=== PATIENT | female | born 1945 | race Caucasian/White ===

== ENCOUNTER 2017-05-20 18:17 | Emergency (ER) | payer MEDICARE, SELFPAY ==
[2017-05-20 18:18] VITALS: BP 179/77; PULSE 106; RESP 18; TEMP 37.8; O2SAT 100; BMI 32.3
--- NOTE | 2017-05-20 19:00 | RAD_ITS ---
STUDY: X-RAY CHEST REASON FOR EXAM: Female, 71 years old. Fever and cough. TECHNIQUE: Frontal and lateral views of the chest. COMPARISON: December 16, 2011 FINDINGS: The lungs are hyperexpanded. There is no demonstrated pleural abnormality. There is borderline cardiomegaly. Normal mediastinum and caden. Normal visualized pulmonary arteries. Normal visualized aortic arch and descending thoracic aorta. Normal visualized thoracic spine. Normal visualized ribs, clavicles, and shoulders. There is no demonstrated abnormality of the visualized soft tissue structures of the upper abdomen. RAD/Chest PA and Lateral IMPRESSION: Borderline cardiomegaly with hyperexpansion. No acute pathology. Electronically Signed: Lam Banuelos MD at 19:41 EDT , Service support ,
[2017-05-20 19:27] VITALS: PULSE 105; RESP 15
[2017-05-20] MEDS: Albuterol 2.5 MG/3 ML VIAL.NEB. INHALATION (19:27)
--- NOTE | 2017-05-20 20:16 | ED.DCSUM_ITS ---
- ER Visit Summary Date of Service: 05/20/17 Chief Complaint: Cough History of Present Illness: The patient is a 71 F presenting for evaluation secondary to a cough. Patient states over the course last 6 days she has had a cough that is minimally productive of sputum. Associated with low-grade fever sore throat and rhinorrhea. Patient states she was seen in urgent care on Monday was placed on a cough suppressant. Patient states that she simply is not getting any better. She denies that she is really short of breath. She denies any nausea vomiting or diarrhea. No history of COPD or asthma, she is a non-smoker. Review of systems otherwise negative. Physical Examination: Vital signs notable for heart rate of 105 temperature of 100.1 normal oxygenation. Well-nourished female no acute distress. Moist mucous membranes. Neck supple no JVD. Heart regular rate and rhythm no murmurs. Lungs sounds showed evidence of wheezing and rales wheezing was throughout the lung tamez rales were very minimal in the left base. Abdomen was soft nontender. Extremities nontender nonedematous. Remainder physical otherwise unremarkable. Test Results: PA and lateral chest x-ray by my personal interpretation as well as radiology shows hyperinflation no infiltrate Emergency Department Course and Treatment: Patient presented for evaluation secondary to cough. She did have some abnormal lung sounds on x-ray was obtained and was found to be negative. Patient has had symptoms for 6 days so despite her mildly elevated temperature there is no indication for doing a flu swab as she is outside of the window for treatment. Patient was given a breathing treatment had minimal improvement. At this point I will treat patient for bronchitis. Patient was given a dose of prednisone in the ER should be discharged with a short course of this as well as albuterol. She will follow-up with her primary care physician. Disposition: Discharge Impression: 1. Bronchitis This note was generated with [employer] dictation software. It may contain incorrect words, spelling, and punctuation that were not noted in review of the chart prior to signing ED Disposition - Plan for ED Patient: Disposition: Home or Assisted Living Chief Complaint: Cough Diagnosis: Bronchitis Instructions: ED Bronchitis Asthmatic Prescriptions: Albuterol Inhaler [Ventolin Hfa] 1 - 2 puff INHALATION Q4H PRN PRN #1 inhaler PRN Reason: Wheezing Prednisone 40 mg PO DAILY #6 tab Referrals: Jenaro Conroy MD [Primary Care Provider] - 1 Week if not improving
[2017-05-20] MEDS: predniSONE 20 MG Tablet 60 MG PO (20:22)
[2017-05-20 20:24] VITALS: BP 153/74; PULSE 114; PULSE 115; RESP 20; O2SAT 96
== END 2017-05-20 20:26 | disposition home or self-care (01) ==
PROVIDERS: Emergency Provider Emergency Medicine; Family Provider Family Medicine; PCP Family Medicine
DX: J40 Bronchitis, not specified as acute or chronic (principal); K21.9 Gastro-esophageal reflux disease without esophagitis; I10 Essential (primary) hypertension; Z79.899 Other long term (current) drug therapy
CPT/HCPCS: 71046; 94640; 99283

== ENCOUNTER → 2017-07-04 13:36 | Outpatient (CLI) | payer MEDICARE, SELFPAY ==
[2017-07-04 15:40] LABS: Anion Gap 10 (5-15); BUN 24 mg/dL (7-18); Calcium,Total 10.6 mg/dL (8.5-10.1); Chloride 105 mmol/L (98-107); Cholesterol 266 mg/dL (200); Creatinine, Serum 1.26 mg/dL (0.55-1.02); EST Glomerular Filtration Rate 45 mL/min (>60); Est Glom Filt Rate - Afr Amer 54 mL/min (>60); Glucose 87 mg/dL (74-106); High Density Lipoprotein 61 mg/dL; Potassium 3.9 mmol/L (3.5-5.1); Sodium Level 141 mmol/L (136-145); Triglycerides 227 mg/dL; Very Low Density Lipoprotein 45 mg/dL (5-40)
[2017-07-05 08:41] LABS: Vitamin D,25 Hydroxy 48.1 ng/mL (29.95-100.01)
== END ==
PROVIDERS: Family Provider Family Medicine; PCP Family Medicine; Visit Provider Family Medicine
DX: I10 Essential (primary) hypertension (principal); E78.00 Pure hypercholesterolemia, unspecified; E55.9 Vitamin D deficiency, unspecified
CPT/HCPCS: 36415; 80048; 80061; 82306

== ENCOUNTER → 2017-07-25 12:08 | Outpatient (CLI) | payer MEDICARE, SELFPAY ==
--- NOTE | 2017-07-25 12:09 | BI_ITS ---
MAMMOGRAPHY - BILATERAL SCREENING REASON FOR EXAM: Female, 71 years old. Routine annual screening examination. PERTINENT HISTORY: Grandmother with breast cancer. TECHNIQUE: Digital bilateral breast chrissy (3D mammographic acquisition) in the CC and MLO projections. 2-D mediolateral oblique (MLO) and craniocaudad (CC) views of both breasts were obtained. CAD: Full Field Digital Mammography with Computer Added Detection was performed. COMPARISON: Comparison is made with prior study dated June 28, 2016 and May 14, 2015. FINDINGS: Breast Composition: There are scattered areas of fibroglandular density. There now is evidence of a slightly ill-defined 9.1 mm x 10.5 mm density in the lateral midportion of the right breast. The patient will be recalled for additional views including compression spot views and 90 degree lateral. No other significant abnormalities are identified. BI/SCREENING MAMM (CAD), BILAT IMPRESSION: Ill-defined nodule in the right breast as described. The patient will be recalled for additional views. Recall Side: Right Breast ASSESSMENT CATEGORY: BIRADS Category 0: Incomplete. Need additional imaging evaluation. A letter regarding these results will be sent to the patient by the facility within 30 days. Approximately 10% of breast cancers are not detected by mammography. A normal mammogram should not delay biopsy of a clinically suspicious abnormality. [id number] Electronically Signed: Rodo Siegel MD at 13:57 EDT Tel [phone], Service support ,
== END ==
PROVIDERS: Family Provider Family Medicine; PCP Family Medicine; Visit Provider Family Medicine
DX: Z12.31 Encounter for screening mammogram for malignant neoplasm of breast (principal)
CPT/HCPCS: 77063; 77067

== ENCOUNTER → 2017-07-31 14:00 | Outpatient (CLI) | payer MEDICARE, SELFPAY ==
--- NOTE | 2017-07-31 14:00 | DT_ITS ---
This patient was seen during an EMR downtime July 31, 2017 - August 07, 2017. This patient may have a combination of paper and electronic documentation or all paper documentation. All documentation is viewable within the e-chart portion of [facility] for each patient visit.
--- NOTE | 2017-07-31 14:07 | BI_ITS ---
MAMMOGRAPHY - UNILATERAL DIAGNOSTIC: RIGHT BREAST REASON FOR EXAM: Female, 71 years old. RT BREAST AV'S FROM SCREENING MAMM PERTINENT HISTORY: Grandmother with breast cancer. TECHNIQUE: 2-D mediolateral oblique (MLO) and craniocaudad (CC) views spot compression views of the right breast. COMPARISON: Jul 25 2017 12:27pm FINDINGS: Breast Composition: There are scattered areas of fibroglandular density. There is persistent spiculated nodule in the mid lateral aspect of the right breast containing microcalcifications suspicious for malignancy. Biopsy is recommended that can be performed with stereotactic guidance. No other significant abnormalities are identified. BI/DIAG MAMM W/CAD, UNILAT IMPRESSION: Findings highly suggestive of malignancy, as described above. Biopsy highly recommended. (H) ASSESSMENT CATEGORY: BIRADS Category 4A: Low suspicion for malignancy. A letter regarding these results will be sent to the patient by the facility within 30 days. Approximately 10% of breast cancers are not detected by mammography. A normal mammogram should not delay biopsy of a clinically suspicious abnormality. Electronically Signed: Frank Huitron MD at 10:16 EDT Tel , Service support ,
== END ==
PROVIDERS: Family Provider Family Medicine; PCP Family Medicine; Visit Provider Family Medicine
DX: R92.8 Other abnormal and inconclusive findings on diagnostic imaging of breast (principal)
CPT/HCPCS: 77063; 77065; 77067

== ENCOUNTER → 2017-08-28 10:58 | Outpatient (CLI) | payer MEDICARE, SELFPAY ==
--- NOTE | 2017-08-28 | BRBX_PTH ---
PATIENT: YAJAIRA SOSA LOC: [facility] U#:[id number] AGE/SX: 79/F ROOM: RE08/28/[address]: Dr. Galen Olsen MD : 1945 BED: DIS: SPEC #: [id number] RECD: 08/28/17 14:37 STATUS: GAYLE PRICE #: [id number] TOREY: 08/28/17 00:[address]: Galen Olsen DEPT: SURGICAL PATHOLOGY RECD BY: Sammy Wolf ENTERED: 08/28/17 14:37 SP TYPE: BREAST BX OTHR DR: Dr. 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 Negative for atypia or malignancy. See comment. KRISTY:leighann 08/29/17 COMMENT Immunohistochemistry ([id number]) supports the above diagnosis. Correlation with clinical, radiologic findings and appropriate follow up are necessary. Case has been reviewed in consultation with Dr. Redd who concurs with the above diagnosis. IDC:AM MICROSCOPIC DESCRIPTION Slides are reviewed. GROSS DESCRIPTION Received is one container labeled with the patient's name and not further designated. The specimen consists of multiple elongated fragments of mcgovern yellow fibroadipose tissue that in aggregate measure 5 x 3 x 0.3 cm. The entire specimen is submitted in two cassettes. KRISTY:leighann 08/28/17 TC: 1 CPT: 28053
--- NOTE | 2017-08-28 | IMM_PTH ---
PATIENT: YAJAIRA SOSA LOC: [facility] U#:[id number] AGE/SX: 79/F ROOM: RE08/28/[address]: Dr. Galen Olsen MD : 1945 BED: DIS: SPEC #: [id number] RECD: 08/29/17 10:02 STATUS: GAYLE REYung #: [id number] TOREY: 08/28/17 00:[address]: Galen Olsen DEPT: IMMUNOHISTOCHEMISTRY RECD BY: Za Riojas ENTERED: 08/29/17 10:03 SP TYPE: IMMUNO OTHR DR: Dr. Jenaro Conroy MD Tissues: Right breast, NOS Procedures: Calponin-1(initial) CALPONIN-1 (add) P40 (add) PHYSICIAN & INSTITUTION [place] [id number] SPECIMEN INFORMATION: Tissue Source: Right breast core, biopsy Clinical Info: Spiculated nodule, right breast mid lateral Specimen Number: [id number] 1, 2 CPT code: 01461, [id number] METHODOLOGY: Deparaffinized sections of prefer/formalin-fixed tissue or PAP/DQ stained slides are incubated with monoclonal/polyclonal antibodies/oligonucleotide probes. Localization is made via biotin free immunoperoxidase method. Appropriate controls are performed and reacted as expected. Results on target cell population are indicated in the following table: RESULTS: ANTIBODY / CLONE RESULT Block 1 P40 (BC28) positive Calponin-1 (PW324H) positive Block 2 P40 (BC28) positive Calponin-1 (OH999G) positive These tests were developed and their performance characteristics determined by [facility]. They may not have been cleared or approved by the U.S. Food and Drug Administration. The FDA has determined that such clearance or approval is not necessary. INTERPRETATION: Right breast, stereotactic core biopsy: Intraductal papilloma with adenosis. Negative for malignancy SJ:audra 08/29/17
--- NOTE | 2017-08-28 11:40 | PCM.OPRPT ---
Problem List (1) Abnormal mammogram of right breast Status: Acute Report of Operation Date of Procedure: 08/28/17 Pre-Operative Diagnosis: Abnormal mammogram with spiculated density and calcifications mid lateral right breast Post-Operative Diagnosis: Same Surgery/Procedure Performed:: Stereotactic needle core biopsy mid lateral right breast Description of Surgical Findings:: Timeout and informed consent was obtained. 71-year-old female was taken to the mammography suite. She was placed prone on the table. The right breast was placed in a lateral medial view. The density in question was rapidly identified. Stereotactic images were obtained. Digital information was obtained on the single target site. The breast was prepped with Betadine. 1% lidocaine was used as a local anesthetic. A total of 8 cc was used. A small stab incision was created. An 8-gauge resolve needle was advanced to prefire depth. Prefire films were obtained demonstrating adequate localization. The device was fired. 6 cores were obtained. The cores were selected and one in particular had the vast majority the microcalcifications. A dumbbell marking clip was left at 12 o'clock position. She was released from the device and pressure was held for hemostasis. Steri-Strips Telfa OpSite dressing applied. The specimens were immediately transferred to formalin. Final pathology is pending. No apparent complications. Blood loss minimal. Galen Olsen M.D., F.A.C.S.
== END ==
PROVIDERS: Family Provider Family Medicine; PCP Family Medicine; Visit Provider Surgery
DX: D24.1 Benign neoplasm of right breast (principal); N60.21 Fibroadenosis of right breast; M19.90 Unspecified osteoarthritis, unspecified site; R01.1 Cardiac murmur, unspecified; I10 Essential (primary) hypertension; K21.9 Gastro-esophageal reflux disease without esophagitis; Z79.82 Long term (current) use of aspirin; Z79.899 Other long term (current) drug therapy; Z87.891 Personal history of nicotine dependence
CPT/HCPCS: 19081; 88305; 88341; 88342; J7050

== ENCOUNTER → 2018-06-29 | Outpatient (CLI) | payer MEDICARE, SELFPAY ==
[2018-06-29 10:47] LABS: Cholesterol 273 mg/dL (200); High Density Lipoprotein 59 mg/dL; Triglycerides 226 mg/dL; Very Low Density Lipoprotein 45 mg/dL (5-40)
== END | disposition home or self-care (01) ==
PROVIDERS: Family Provider Family Medicine; PCP Family Medicine; Referring Provider Family Medicine; Visit Provider Family Medicine
DX: E78.00 Pure hypercholesterolemia, unspecified (principal); E55.9 Vitamin D deficiency, unspecified; I10 Essential (primary) hypertension
CPT/HCPCS: 36415; 80061

== ENCOUNTER → 2018-08-16 | Outpatient (CLI) | payer MEDICARE, SELFPAY ==
--- NOTE | 2018-08-16 10:43 | BI_ITS ---
MAMMOGRAPHY - BILATERAL SCREENING REASON FOR EXAM: Female, 72 years old. Routine annual screening examination. PERTINENT HISTORY: Grandmother with breast cancer. Right stereotactic breast biopsy. TECHNIQUE: Digital bilateral breast omega (3D mammographic acquisition) in the CC and MLO projections. 2-D mediolateral oblique (MLO) and craniocaudad (CC) views of both breasts were obtained. CAD: Full Field Digital Mammography with Computer Added Detection was performed. COMPARISON: Comparison is made with prior study dated July 31, 2017 and July 25, 2017. FINDINGS: Breast Composition: There are scattered areas of fibroglandular density. There are no dominant masses or suspicious calcifications. No other significant abnormalities are identified. There has been no significant change since the prior study. BI/SCREEN MAMM (CAD) W/OMEGA BILAT IMPRESSION: Stable bilateral screening mammogram. Yearly follow-up mammogram recommended. (A) ASSESSMENT CATEGORY: BIRADS Category 1: Negative. A letter regarding these results will be sent to the patient by the facility within 30 days. Approximately 10% of breast cancers are not detected by mammography. A normal mammogram should not delay biopsy of a clinically suspicious abnormality. [id number] Electronically Signed: Rodo Siegel, at 12:26 EDT , Service support ,
== END | disposition home or self-care (01) ==
LOC: OPBI 10:31
PROVIDERS: Family Provider Family Medicine; PCP Family Medicine; Referring Provider Family Medicine; Visit Provider Family Medicine
DX: Z12.31 Encounter for screening mammogram for malignant neoplasm of breast (principal)
CPT/HCPCS: 77063; 77067

== ENCOUNTER → 2018-08-31 | Outpatient (CLI) | payer MEDICARE, SELFPAY ==
[2017-08-17 15:53] VITALS: BMI 33.2
[2018-08-31 09:33] LABS: Absolute Lymphocyte Count 1.78 X10^3/ul (0.83-4.51); Absolute Neutrophil Count 3.3 X10^3/uL (2.0-7.7); Basophil# 0.04 X10^3/uL; Basophil% 0.6 % (0-1); Eosinophil# 0.19 X10^3/uL; Eosinophils% 3.1 % (0-5); Hematocrit 33.6 % (37-47); Hemoglobin 11.4 g/dl (12.0-15.0); Lymphocyte # 1.78 X10^3/ul (4.0); Lymphocyte % 28.8 % (19-41); Mean Corp Hgb Conc 33.9 g/gl (32-36); Mean Corpuscular Hgb 31.1 pg (27.0-32.0); Mean Corpuscular Volume 91.8 fL (81-99); Mean Platelet Vol. 10.5 fl (6.2-12.0); Monocyte# 0.82 X10^3/uL; Monocyte% 13.3 % (0-10); Neutrophil # 3.34 X10^3/uL (2.7-7.7); Platelet Count 307 K/mm3 (150-450); RBC Distribution Width CV 11.9 % (11.6-14.6); RBC Distribution Width SD 38.8 fl (35.1-43.9); Red Blood Count 3.66 M/mm3 (4.2-5.4); White Blood Count 6.2 K/mm3 (4.4-11.0)
[2018-08-31 09:37] LABS: POSITIVE COUNT NO; POSITIVE DIFFERENTIAL NO; POSITIVE MORPHOLOGY NO
[2018-08-31 09:50] LABS: Anion Gap 7 (5-15); BUN 28 mg/dL (7-18); BUN/Creat Ratio 22.8 RATIO (10-20); Calcium,Total 10.4 mg/dL (8.5-10.1); Chloride 106 mmol/L (98-107); Cholesterol 167 mg/dL (200); Creatinine, Serum 1.23 mg/dL (0.55-1.02); EST Glomerular Filtration Rate 46 mL/min (>60); Est Glom Filt Rate - Afr Amer 55 mL/min (>60); Glucose 99 mg/dL (74-106); High Density Lipoprotein 59 mg/dL; Potassium 4.2 mmol/L (3.5-5.1); Sodium Level 140 mmol/L (136-145); Triglycerides 98 mg/dL; Very Low Density Lipoprotein 20 mg/dL (5-40)
[2018-08-31 10:18] LABS: Vitamin D,25 Hydroxy 54.6 ng/mL (29.95-100.01)
== END | disposition home or self-care (01) ==
LOC: LAB 08:20
PROVIDERS: Family Provider Family Medicine; PCP Family Medicine; Referring Provider Family Medicine; Visit Provider Family Medicine
DX: I10 Essential (primary) hypertension (principal); M17.11 Unilateral primary osteoarthritis, right knee; E78.00 Pure hypercholesterolemia, unspecified; E55.9 Vitamin D deficiency, unspecified
CPT/HCPCS: 36415; 80048; 80061; 82306; 85025

== ENCOUNTER → 2019-04-19 07:41 | Outpatient (CLI) | payer MEDICARE, SELFPAY ==
[2017-08-17 15:53] VITALS: BMI 33.2
[2019-04-19 10:49] LABS: AST(SGOT) 19 U/L (15-37); Alanine Aminotransfer ALT/SGPT 24 U/L (13-56); Albumin, Serum 3.6 g/dL (3.2-5.0); Alkaline Phosphatase 70 U/L (45-117); Anion Gap 5 (5-15); BUN 20 mg/dL (7-18); BUN/Creat Ratio 20.3 RATIO (10-20); Chloride 107 mmol/L (98-107); Cholesterol 208 mg/dL (200); Creatinine, Serum 0.98 mg/dL (0.55-1.02); EST Glomerular Filtration Rate 59 mL/min (>60); Est Glom Filt Rate - Afr Amer 72 mL/min (>60); Globulin 3.7 g/dL (2.2-4.2); Glucose 91 mg/dL (74-106); High Density Lipoprotein 72 mg/dL; Potassium 4.1 mmol/L (3.5-5.1); Protein, Total 7.3 g/dL (6.4-8.2); Sodium Level 140 mmol/L (136-145); Triglycerides 135 mg/dL; Very Low Density Lipoprotein 27 mg/dL (5-40)
== END ==
PROVIDERS: PCP Family Medicine; Referring Provider Family Medicine; Visit Provider Family Medicine
DX: I10 Essential (primary) hypertension (principal); M85.80 Other specified disorders of bone density and structure, unspecified site
CPT/HCPCS: 36415; 80053; 80061; 82306

== ENCOUNTER → 2019-08-13 11:19 | Outpatient (CLI) | payer MEDICARE, SELFPAY ==
[2017-08-17 15:53] VITALS: BMI 33.2
[2019-08-13 12:41] LABS: Calcium,Total 11.3 mg/dL (8.5-10.1)
== END ==
PROVIDERS: PCP Family Medicine; Referring Provider Family Medicine; Visit Provider Family Medicine
DX: E83.52 Hypercalcemia (principal)
CPT/HCPCS: 36415; 82310

== ENCOUNTER → 2019-08-16 14:04 | Outpatient (CLI) | payer MEDICARE, SELFPAY ==
[2017-08-17 15:53] VITALS: BMI 33.2
--- NOTE | 2019-08-16 14:13 | RAD_ITS ---
STUDY: X-RAY CHEST REASON FOR EXAM: Female, 73 years old. Hypercalcemia TECHNIQUE: PA and lateral views of the chest. COMPARISON: May 20, 2017 FINDINGS: There is no new focal consolidation. Normal size heart. Normal mediastinum and caden. Normal visualized pulmonary arteries. Normal visualized aortic arch and descending thoracic aorta. Normal visualized thoracic spine. Normal visualized ribs, clavicles, and shoulders. There is no demonstrated abnormality of the visualized soft tissue structures of the upper abdomen. RAD/Chest PA and Lateral IMPRESSION: No acute cardiopulmonary process. Electronically Signed: Carmen Mcmillan MD at 16:55 EDT Tel , Service support ,
[2019-08-16 17:52] LABS: Phosphorus 2.1 mg/dL (2.5-4.9)
[2019-08-16 19:11] LABS: Vitamin D,25 Hydroxy 45.9 ng/mL
[2019-08-19 08:36] LABS: PTHIN 137.7 pg/mL (18.4-80.1)
== END ==
PROVIDERS: PCP Family Medicine; Referring Provider Family Medicine; Visit Provider Family Medicine
DX: E83.52 Hypercalcemia (principal)
CPT/HCPCS: 36415; 71046; 82306; 83970; 84100

== ENCOUNTER → 2019-09-05 13:04 | Outpatient (CLI) | payer MEDICARE, SELFPAY ==
[2017-08-17 15:53] VITALS: BMI 33.2
--- NOTE | 2019-09-05 13:07 | BI_ITS ---
MAMMOGRAPHY - BILATERAL SCREENING REASON FOR EXAM: Female, 73 years old. Routine annual screening examination. PERTINENT HISTORY: Grandmother with breast cancer. TECHNIQUE: Digital bilateral breast omega (3D mammographic acquisition) in the CC and MLO projections. 2-D mediolateral oblique (MLO) and craniocaudad (CC) views of both breasts were obtained. CAD: Full Field Digital Mammography with Computer Added Detection was performed. COMPARISON: Comparison is made with prior study dated August 16, 2018 and July 31, 2017. FINDINGS: Breast Composition: There are scattered areas of fibroglandular density. There are no dominant masses or suspicious calcifications. Stable benign-appearing bilateral axillary lymph nodes. No other significant abnormalities are identified. There has been no significant change since the prior study. BI/SCREEN MAMM (CAD) W/OMEGA BILAT IMPRESSION: Stable bilateral screening mammogram. Yearly follow-up mammogram recommended. (A) ASSESSMENT CATEGORY: BIRADS Category 2: Benign. A letter regarding these results will be sent to the patient by the facility within 30 days. Approximately 10% of breast cancers are not detected by mammography. A normal mammogram should not delay biopsy of a clinically suspicious abnormality. [id number] Electronically Signed: Rodo Siegel, at 14:37 EDT , Service support ,
--- NOTE | 2019-09-05 13:12 | BD_ITS ---
STUDY: DUAL ENERGY X-RAY ABSORPTIOMETRY / DXA REASON FOR EXAM: Female, 73 years old. Age of rishi 52. Pat is 165.5# and 5'' a loss of 1.5 and quot; loss per pat. Past hx of using a thyroid med. Hx of using both Fosamax and Actonel of about 7-8 yrs. in total. Her BPM has a diuretic in it. Takes 1500mg of calcium and a multi-vit. She exercises moderately. Has a hx of a left femur fx with replacement. TECHNIQUE: Bone Mineral Density (BMD) measurements of lumbar spine and right hip were obtained. COMPARISON: Comparison is made with prior examination of May 14, 2015. FINDINGS: Lumbar Spine (L1-L4): g/cm2 (1.095) / T-score (-0.6) / Z-score (1.1) Findings are suggestive of normal bone density with a low fracture risk. Right Femur Total: g/cm2 (0.842) / T-score (-1.3) / Z-score (0.2) Right Femoral Neck: g/cm2 (0.789) / T-score (-1.8) / Z-score (0.0) The T-Scores on the most recent prior examination were: Lumbar Spine (L1-L4): There has been worsening of bone density since the previous examination. Right Femur Total: which represents a worsening of 3.9%. BD/Dexa Bone Density Study IMPRESSION: The patient is considered osteopenic as outlined below according to World Oliver Organization (WHO) criteria with a moderate fracture risk. There has been worsening of bone density since the previous examination. Reference Information: The T-score is the number of standard deviations above or below the standard which is normal for young adults at their peak bone mineral density. The World Health Organization (WHO) interprets the T-scores as follows: Above -1 Normal bone density Between -1 and -2.5 Osteopenia Equal to / or below -2.5 Osteoporosis As a practical clinical guideline, osteopenia may be graded as follows: Mild -1 through -1.5 Moderate -1.6 through -2.0 Severe -2.1 through -2.4 The Z-score is the number of standard deviations above or below age-matched controls. A Z-score of less than -1.5 would be considered abnormal. References: 1. NIH Osteoporosis and Related Bone Diseases http://www.osteo.org 2. International Society for Clinical Densitometry http://www.iscd.org 3. National Osteoporosis Foundation http://www.nof.org Electronically Signed: Rodo Siegel, at 15:36 EDT , Service support ,
== END ==
PROVIDERS: PCP Family Medicine; Referring Provider Family Medicine; Visit Provider Family Medicine
DX: Z12.31 Encounter for screening mammogram for malignant neoplasm of breast (principal); Z78.0 Asymptomatic menopausal state
CPT/HCPCS: 77063; 77067; 77080

== ENCOUNTER → 2020-02-05 10:55 | Outpatient (CLI) | payer MEDICARE, SELFPAY ==
[2019-10-31 16:34] VITALS: BMI 33.2
[2020-02-05 12:17] LABS: Absolute Lymphocyte Count 1.81 X10^3/uL (0.83-4.51); Absolute Neutrophil Count 4.4 X10^3/uL (2.0-7.7); Basophil# 0.05 X10^3/uL; Basophil% 0.7 % (0-1); Eosinophil# 0.13 X10^3/uL; Eosinophils% 1.8 % (0-5); Hematocrit 35.3 % (37-47); Hemoglobin 11.6 g/dL (12.0-15.0); Lymphocyte # 1.81 X10^3/ul (4.0); Lymphocyte % 25.7 % (19-41); Mean Corp Hgb Conc 32.9 g/dL (32-36); Mean Corpuscular Hgb 30.6 pg (27.0-32.0); Mean Corpuscular Volume 93.1 fL (81-99); Mean Platelet Vol. 9.8 fl (6.2-12.0); Monocyte# 0.63 X10^3/uL; NRBC Flagged by Analyzer 0 % (0-5); Neutrophil # 4.38 X10^3/uL (2.7-7.7); Neutrophil % 62.4 % (47-70); Platelet Count 315 K/mm3 (150-450); RBC Distribution Width CV 12.1 % (11.6-14.6); RBC Distribution Width SD 41.5 fl (35.1-43.9); Red Blood Count 3.79 M/mm3 (4.2-5.4)
[2020-02-05 12:54] LABS: ALB/GLOB Ratio 1.1 RATIO (0.9-2.4); AST(SGOT) 18 U/L (15-37); Alanine Aminotransfer ALT/SGPT 23 U/L (13-56); Albumin, Serum 3.8 g/dL (3.2-5.0); Alkaline Phosphatase 83 U/L (45-117); Anion Gap 5 (5-15); BUN 14 mg/dL (7-18); BUN/Creat Ratio 13.7 RATIO (10-20); Calcium,Total 10.5 mg/dL (8.5-10.1); Chloride 106 mmol/L (98-107); Cholesterol 194 mg/dL (200); Creatinine, Serum 1.02 mg/dL (0.55-1.02); EST Glomerular Filtration Rate 57 mL/min (>60); Est Glom Filt Rate - Afr Amer 68 mL/min (>60); Globulin 3.6 g/dL (2.2-4.2); Glucose 102 mg/dL (74-106); High Density Lipoprotein 73 mg/dL; Potassium 4.3 mmol/L (3.5-5.1); Protein, Total 7.4 g/dL (6.4-8.2); Sodium Level 137 mmol/L (136-145); Triglycerides 107 mg/dL; Very Low Density Lipoprotein 21 mg/dL (5-40)
== END ==
PROVIDERS: PCP Family Medicine; Referring Provider Family Medicine; Visit Provider Family Medicine
DX: E78.00 Pure hypercholesterolemia, unspecified (principal); I10 Essential (primary) hypertension
CPT/HCPCS: 36415; 80053; 80061; 85025

== ENCOUNTER → 2020-02-26 12:39 | Outpatient (CLI) | payer MEDICARE, SELFPAY ==
[2019-10-31 16:34] VITALS: BMI 33.2
[2020-02-26 12:47] VITALS: BP 146/66; PULSE 92; RESP 18; TEMP 35.8; O2SAT 98; BMI 33.0
[2020-02-26] MEDS: DENOSUMAB 60 MG/ML SQ (13:11)
== END ==
PROVIDERS: PCP Family Medicine; Referring Provider Internal Medicine Endocrinology, Diabetes & Metabolism; Visit Provider Internal Medicine Endocrinology, Diabetes & Metabolism
DX: M81.0 Age-related osteoporosis without current pathological fracture (principal)
CPT/HCPCS: 96372; J0897

== ENCOUNTER 2020-04-27 12:10 | Outpatient (RCR) | payer MEDICARE, SELFPAY ==
[2020-02-26 12:47] VITALS: BMI 33.0
== END 2020-04-27 23:59 ==
LOC: IMMUN 12:10
PROVIDERS: PCP Family Medicine; Visit Provider Family Medicine
DX: Z23 Encounter for immunization (principal)
CPT/HCPCS: 0011A; 0012A

== ENCOUNTER → 2020-08-18 07:26 | Outpatient (CLI) | payer MEDICARE, SELFPAY ==
[2020-02-26 12:47] VITALS: BMI 33.0
[2020-08-18 10:15] LABS: Absolute Lymphocyte Count 1.33 X10^3/uL (0.83-4.51); Absolute Neutrophil Count 3.9 X10^3/uL (2.0-7.7); Basophil# 0.04 X10^3/uL; Basophil% 0.6 % (0-1); Eosinophils% 3.1 % (0-5); Hematocrit 35.4 % (37-47); Hemoglobin 11.5 g/dL (12.0-15.0); Lymphocyte # 1.33 X10^3/ul (0.83-4.51); Lymphocyte % 20.8 % (19-41); Mean Corp Hgb Conc 32.5 g/dL (32-36); Mean Corpuscular Hgb 30.7 pg (27.0-32.0); Mean Corpuscular Volume 94.4 fL (81-99); Mean Platelet Vol. 10.3 fl (6.2-12.0); Monocyte# 0.89 X10^3/uL; Monocyte% 13.9 % (0-10); NRBC Flagged by Analyzer 0 % (0-5); Neutrophil # 3.92 X10^3/uL (2.7-7.7); Neutrophil % 61.3 % (47-70); Platelet Count 310 K/mm3 (150-450); RBC Distribution Width CV 12.3 % (11.6-14.6); RBC Distribution Width SD 42.4 fl (35.1-43.9); Red Blood Count 3.75 M/mm3 (4.2-5.4); White Blood Count 6.4 K/mm3 (4.4-11.0)
[2020-08-18 10:57] LABS: ALB/GLOB Ratio 0.9 RATIO (0.9-2.4); AST(SGOT) 17 U/L (15-37); Alanine Aminotransfer ALT/SGPT 20 U/L (13-56); Albumin, Serum 3.6 g/dL (3.2-5.0); Alkaline Phosphatase 68 U/L (45-117); Anion Gap 6 (5-15); BUN 20 mg/dL (7-18); BUN/Creat Ratio 18.2 RATIO (10-20); Calcium,Total 11.1 mg/dL (8.5-10.1); Chloride 107 mmol/L (98-107); EST Glomerular Filtration Rate 52 mL/min (>60); Est Glom Filt Rate - Afr Amer 63 mL/min (>60); Globulin 3.8 g/dL (2.2-4.2); Glucose 97 mg/dL (74-106); Potassium 4.3 mmol/L (3.5-5.1); Protein, Total 7.4 g/dL (6.4-8.2); Sodium Level 139 mmol/L (136-145)
== END ==
PROVIDERS: PCP Family Medicine; Referring Provider Family Medicine; Visit Provider Family Medicine
DX: I10 Essential (primary) hypertension (principal)
CPT/HCPCS: 36415; 80053; 85025

== ENCOUNTER → 2020-08-19 12:51 | Outpatient (CLI) | payer MEDICARE, SELFPAY ==
[2019-10-31 16:34] VITALS: BMI 33.2
[2020-02-26 12:47] VITALS: BMI 33.0
[2020-08-19 12:45] VITALS: BP 130/54; PULSE 80; RESP 16; TEMP 36.5; O2SAT 98; BMI 33.0
[2020-08-19] MEDS: DENOSUMAB 60 MG/ML SC (12:59)
== END ==
PROVIDERS: PCP Family Medicine; Referring Provider Internal Medicine Endocrinology, Diabetes & Metabolism; Visit Provider Internal Medicine Endocrinology, Diabetes & Metabolism
DX: M81.0 Age-related osteoporosis without current pathological fracture (principal)
CPT/HCPCS: 96372; J0897

== ENCOUNTER → 2020-09-23 13:26 | Outpatient (CLI) | payer MEDICARE, SELFPAY ==
[2020-08-19 12:45] VITALS: BMI 33.0
[2020-09-23 15:20] LABS: Platelet Count 318 K/mm3 (150-450); RET-HE 37.2 pg (30-35); Reticulocyte Count 1.32 % (0.5-1.5)
[2020-09-23 15:51] LABS: Vitamin B12 626 pg/mL (211-911)
[2020-09-23 15:52] LABS: Cholesterol 187 mg/dL (200); Ferritin 51 ng/mL (8-252); High Density Lipoprotein 74 mg/dL; Iron 75 ug/dL (50-170); Iron Binding Capacity,Total 320 ug/dL (250-450); Triglycerides 99 mg/dL; Very Low Density Lipoprotein 20 mg/dL (5-40)
== END ==
PROVIDERS: PCP Family Medicine; Referring Provider Family Medicine; Visit Provider Family Medicine
DX: E78.00 Pure hypercholesterolemia, unspecified (principal); D64.9 Anemia, unspecified
CPT/HCPCS: 36415; 80061; 82607; 82728; 83540; 83550; 85045

== ENCOUNTER → 2020-10-22 12:21 | Outpatient (CLI) | payer MEDICARE, SELFPAY ==
[2020-08-19 12:45] VITALS: BMI 33.0
--- NOTE | 2020-10-22 12:23 | BI_ITS ---
MAMMOGRAPHY - BILATERAL SCREENING REASON FOR EXAM: Female, 75 years old. Routine annual screening examination. PERTINENT HISTORY: Grandmother with breast cancer. Prior right stereotactic breast biopsy. TECHNIQUE: Digital bilateral breast omega (3D mammographic acquisition) in the CC and MLO projections. 2-D mediolateral oblique (MLO) and craniocaudad (CC) views of both breasts were obtained. CAD: Full Field Digital Mammography with Computer Added Detection was performed. COMPARISON: Comparison is made with prior examination of 09/05/2019 and 08/16/2018. FINDINGS: Breast Composition: There are scattered areas of fibroglandular density. There are no dominant masses or suspicious calcifications. A tissue clip marker is seen in the anterior mid lateral aspect of the right breast. This is unchanged. Stable small benign-appearing left axillary lymph nodes. No other significant abnormalities are identified. There has been no significant change since the prior study. BI/SCRN MAMM (CAD)W/OMEGA BILAT IMPRESSION: Stable bilateral screening mammogram. Yearly follow-up mammogram recommended. (A) ASSESSMENT CATEGORY: BIRADS Category 2: Benign. A letter regarding these results will be sent to the patient by the facility within 30 days. Approximately 10% of breast cancers are not detected by mammography. A normal mammogram should not delay biopsy of a clinically suspicious abnormality. [id number] Electronically Signed: Rodo Siegel MD at 14:22 EDT , Service support ,
== END ==
PROVIDERS: PCP Family Medicine; Referring Provider Family Medicine; Visit Provider Family Medicine
DX: Z12.31 Encounter for screening mammogram for malignant neoplasm of breast (principal)
CPT/HCPCS: 77063; 77067

== ENCOUNTER → 2021-02-17 12:23 | Outpatient (CLI) | payer MEDICARE, SELFPAY ==
[2020-02-26 12:47] VITALS: BMI 33.0
[2021-02-17 12:29] VITALS: BP 151/70; PULSE 82; RESP 16; TEMP 36.7; O2SAT 97; BMI 31.2
[2021-02-17] MEDS: DENOSUMAB 60 MG/ML SC (13:06)
== END ==
PROVIDERS: PCP Family Medicine; Referring Provider Internal Medicine Endocrinology, Diabetes & Metabolism; Visit Provider Internal Medicine Endocrinology, Diabetes & Metabolism
DX: M81.0 Age-related osteoporosis without current pathological fracture (principal)
CPT/HCPCS: 96372; J0897

== ENCOUNTER → 2021-08-18 | Outpatient (CLI) | payer MEDICARE, SELFPAY ==
[2021-08-18 12:48] VITALS: BP 132/54; PULSE 79; RESP 14; TEMP 36.6; O2SAT 98; BMI 31.2
[2021-08-18] MEDS: DENOSUMAB 60 MG/ML SC (12:50)
== END | disposition home or self-care (01) ==
LOC: MEDOUTP 12:41
PROVIDERS: PCP Family Medicine; Referring Provider Internal Medicine Endocrinology, Diabetes & Metabolism; Visit Provider Internal Medicine Endocrinology, Diabetes & Metabolism
DX: M81.0 Age-related osteoporosis without current pathological fracture (principal)
CPT/HCPCS: 96372; J0897

== ENCOUNTER 2021-09-24 10:22 | Outpatient (CLI) | payer MEDICARE, SELFPAY ==
[2021-09-24 12:02] LABS: Absolute Lymphocyte Count 1.08 X10^3/uL (0.83-4.51); Absolute Neutrophil Count 4.4 X10^3/uL (2.0-7.7); Basophil# 0.06 X10^3/uL; Basophil% 0.9 % (0-1); Eosinophil# 0.19 X10^3/uL; Eosinophils% 2.9 % (0-5); Hematocrit 34.3 % (37-47); Hemoglobin 11.3 g/dL (12.0-15.0); Lymphocyte # 1.08 X10^3/ul (0.83-4.51); Lymphocyte % 16.7 % (19-41); Mean Corp Hgb Conc 32.9 g/dL (32-36); Mean Corpuscular Volume 94.2 fL (81-99); Mean Platelet Vol. 9.9 fl (6.2-12.0); Monocyte# 0.75 X10^3/uL; Monocyte% 11.6 % (0-10); NRBC Flagged by Analyzer 0 % (0-5); Neutrophil # 4.39 X10^3/uL (2.7-7.7); Neutrophil % 67.7 % (47-70); Platelet Count 287 K/mm3 (150-450); RBC Distribution Width CV 12.3 % (11.6-14.6); RBC Distribution Width SD 42.4 fl (35.1-43.9); Red Blood Count 3.64 M/mm3 (4.2-5.4); White Blood Count 6.5 K/mm3 (4.4-11.0)
[2021-09-24 12:23] LABS: AST(SGOT) 19 U/L (15-37); Alanine Aminotransfer ALT/SGPT 26 U/L (13-56); Albumin, Serum 3.5 g/dL (3.2-5.0); Alkaline Phosphatase 72 U/L (45-117); Anion Gap 5 (5-15); BUN 20 mg/dL (7-18); BUN/Creat Ratio 17.1 RATIO (10-20); Calcium,Total 10.9 mg/dL (8.5-10.1); Chloride 108 mmol/L (98-107); Cholesterol 175 mg/dL (200); Creatinine, Serum 1.17 mg/dL (0.55-1.02); EST Glomerular Filtration Rate 48 mL/min (>60); Est Glom Filt Rate - Afr Amer 58 mL/min (>60); Globulin 3.6 g/dL (2.2-4.2); Glucose 99 mg/dL (74-106); High Density Lipoprotein 57 mg/dL; Potassium 4.5 mmol/L (3.5-5.1); Protein, Total 7.1 g/dL (6.4-8.2); Sodium Level 138 mmol/L (136-145); Triglycerides 145 mg/dL; Very Low Density Lipoprotein 29 mg/dL (5-40)
== END 2021-09-24 23:59 | disposition home or self-care (01) ==
LOC: MTLAB 10:23
PROVIDERS: PCP Family Medicine; Referring Provider Family Medicine; Visit Provider Family Medicine
DX: I12.9 Hypertensive chronic kidney disease with stage 1 through stage 4 chronic kidney disease, or unspecified chronic kidney disease (principal); N18.30 Chronic kidney disease, stage 3 unspecified; D64.9 Anemia, unspecified; E78.00 Pure hypercholesterolemia, unspecified
CPT/HCPCS: 36415; 80053; 80061; 85025

== ENCOUNTER → 2021-10-26 | Outpatient (CLI) | payer MEDICARE, SELFPAY ==
--- NOTE | 2021-10-26 13:25 | BI_ITS ---
MAMMOGRAPHY - BILATERAL SCREENING REASON FOR EXAM: Female, 76 years old. Routine annual screening examination. PERTINENT HISTORY: Grandmother with breast cancer. Prior right stereotactic breast biopsy. TECHNIQUE: Digital bilateral breast omega (3D mammographic acquisition) in the CC and MLO projections. 2-D mediolateral oblique (MLO) and craniocaudad (CC) views of both breasts were obtained. CAD: Full Field Digital Mammography with Computer Added Detection was performed. COMPARISON: Comparison is made with prior study dated 10/22/2020 and 09/05/2019. FINDINGS: Breast Composition: There are scattered areas of fibroglandular density. There are no dominant masses or suspicious calcifications. A tissue clip marker is seen in the medial retroareolar region of the right breast. Stable benign appearing bilateral axillary lymph nodes. No other significant abnormalities are identified. There has been no significant change since the prior study. BI/SCRN MAMM (CAD)W/OMEGA BILAT IMPRESSION: Stable bilateral screening mammogram. Yearly follow-up mammogram recommended. (A) ASSESSMENT CATEGORY: BIRADS Category 2: Benign. A letter regarding these results will be sent to the patient by the facility within 30 days. Approximately 10% of breast cancers are not detected by mammography. A normal mammogram should not delay biopsy of a clinically suspicious abnormality. [id number] Electronically Signed: Rodo Siegel MD at 14:50 EDT ,
--- NOTE | 2021-10-26 13:31 | BD_ITS ---
STUDY: DUAL ENERGY X-RAY ABSORPTIOMETRY / DXA REASON FOR EXAM: Female, 76 years old. [id number] TECHNIQUE: Bone Mineral Density (BMD) measurements of lumbar spine and right hip were obtained. COMPARISON: Comparison is made with prior study 09/05/2019. FINDINGS: Lumbar Spine (L1-L4): g/cm2 (1.046) / T-score (-0.1) / Z-score (2.) Findings are suggestive of normal bone density with a low fracture risk. Right Femur Total: g/cm2 (0.811) / T-score (-1.1) / Z-score (0.7) Right Femoral Neck: g/cm2 (0.612) / T-score (-2.1) / Z-score (-0.1) The T-Scores on the most recent prior examination were: Lumbar Spine (L1-L4): There has been improvement of bone density since the previous examination. Right Femur Total: which represents an improvement of 3.8%. BD/Dexa Bone Density Study IMPRESSION: The patient is considered osteopenic as outlined below according to World Oliver Organization (WHO) criteria with a moderate fracture risk. There has been improvement of bone density since the previous examination. Reference Information: The T-score is the number of standard deviations above or below the standard which is normal for young adults at their peak bone mineral density. The World Health Organization (WHO) interprets the T-scores as follows: Above -1 Normal bone density Between -1 and -2.5 Osteopenia Equal to / or below -2.5 Osteoporosis As a practical clinical guideline, osteopenia may be graded as follows: Mild -1 through -1.5 Moderate -1.6 through -2.0 Severe -2.1 through -2.4 The Z-score is the number of standard deviations above or below age-matched controls. A Z-score of less than -1.5 would be considered abnormal. References: 1. NIH Osteoporosis and Related Bone Diseases www osteo.org 2. International Society for Clinical Densitometry www iscd.org 3. National Osteoporosis Foundation www nof.org Electronically Signed: Rodo Siegel MD at 13:52 EDT ,
== END | disposition home or self-care (01) ==
PROVIDERS: PCP Family Medicine; Visit Provider Family Medicine
DX: Z12.31 Encounter for screening mammogram for malignant neoplasm of breast (principal); N95.9 Unspecified menopausal and perimenopausal disorder
CPT/HCPCS: 77063; 77067; 77080

== ENCOUNTER → 2022-02-23 | Outpatient (CLI) | payer MEDICARE, SELFPAY ==
[2022-02-23 12:56] VITALS: BP 144/54; PULSE 84; RESP 16; TEMP 36.1; O2SAT 96; BMI 32.2
[2022-02-23] MEDS: DENOSUMAB 60 MG/ML SC (12:58)
== END | disposition home or self-care (01) ==
LOC: MEDOUTP 12:42
PROVIDERS: PCP Family Medicine; Referring Provider Internal Medicine Endocrinology, Diabetes & Metabolism; Visit Provider Internal Medicine Endocrinology, Diabetes & Metabolism
DX: M81.0 Age-related osteoporosis without current pathological fracture (principal)
CPT/HCPCS: 96372; J0897

== ENCOUNTER → 2022-03-31 | Outpatient (CLI) | payer MEDICARE, SELFPAY ==
[2022-03-31 15:08] LABS: Absolute Neutrophil Count 3.5 X10^3/uL (2.0-7.7); Basophil# 0.06 X10^3/uL; Basophil% 1.1 % (0-1); Eosinophil# 0.11 X10^3/uL; Eosinophils% 2.1 % (0-5); Hematocrit 36.1 % (37-47); Hemoglobin 11.9 g/dL (12.0-15.0); Lymphocyte % 20.7 % (19-41); Mean Corpuscular Hgb 31.4 pg (27.0-32.0); Mean Corpuscular Volume 95.3 fL (81-99); Mean Platelet Vol. 9.6 fl (6.2-12.0); Monocyte% 9.4 % (0-10); NRBC Flagged by Analyzer 0 % (0-5); Neutrophil # 3.53 X10^3/uL (2.7-7.7); Neutrophil % 66.5 % (47-70); Platelet Count 259 K/mm3 (150-450); RBC Distribution Width CV 12.3 % (11.6-14.6); RBC Distribution Width SD 42.4 fl (35.1-43.9); Red Blood Count 3.79 M/mm3 (4.2-5.4); White Blood Count 5.3 K/mm3 (4.4-11.0)
[2022-03-31 15:15] LABS: PTHIN 202.2 pg/mL (18.4-80.1)
[2022-03-31 15:19] LABS: AST(SGOT) 18 U/L (15-37); Alanine Aminotransfer ALT/SGPT 27 U/L (13-56); Albumin, Serum 3.7 g/dL (3.2-5.0); Alkaline Phosphatase 60 U/L (45-117); Anion Gap 4 (5-15); BUN 19 mg/dL (7-18); BUN/Creat Ratio 17.4 RATIO (10-20); Calcium,Total 11.1 mg/dL (8.5-10.1); Chloride 107 mmol/L (98-107); Cholesterol 205 mg/dL (200); Creatinine, Serum 1.09 mg/dL (0.55-1.02); EST Glomerular Filtration Rate 52 mL/min (>60); Est Glom Filt Rate - Afr Amer 63 mL/min (>60); Globulin 3.8 g/dL (2.2-4.2); Glucose 99 mg/dL (74-106); High Density Lipoprotein 74 mg/dL; Potassium 4.6 mmol/L (3.5-5.1); Protein, Total 7.5 g/dL (6.4-8.2); Sodium Level 138 mmol/L (136-145); Triglycerides 90 mg/dL; Very Low Density Lipoprotein 18 mg/dL (5-40); Vitamin D,25 Hydroxy 45.6 ng/mL
== END | disposition home or self-care (01) ==
PROVIDERS: Internal Medicine Endocrinology, Diabetes & Metabolism; PCP Family Medicine; Referring Provider Family Medicine; Visit Provider Family Medicine
DX: E78.00 Pure hypercholesterolemia, unspecified (principal); E21.0 Primary hyperparathyroidism; D64.9 Anemia, unspecified; I12.9 Hypertensive chronic kidney disease with stage 1 through stage 4 chronic kidney disease, or unspecified chronic kidney disease; M81.0 Age-related osteoporosis without current pathological fracture; E55.9 Vitamin D deficiency, unspecified
CPT/HCPCS: 36415; 80053; 80061; 82306; 83970; 85025

== ENCOUNTER 2022-08-24 12:42 | Outpatient (CLI) | payer MEDICARE, SELFPAY ==
[2022-08-24 12:54] VITALS: BP 156/6; PULSE 76; RESP 16; TEMP 36.6; O2SAT 96; BMI 32.2
[2022-08-24] MEDS: DENOSUMAB 60 MG/ML SC (13:15)
== END 2022-08-24 12:43 | disposition home or self-care (01) ==
LOC: MEDOUTP 12:43
PROVIDERS: PCP Family Medicine; Referring Provider Internal Medicine Endocrinology, Diabetes & Metabolism; Visit Provider Internal Medicine Endocrinology, Diabetes & Metabolism
DX: M81.0 Age-related osteoporosis without current pathological fracture (principal)
CPT/HCPCS: 96372; J0897

== ENCOUNTER → 2022-09-28 | Outpatient (CLI) | payer MEDICARE, SELFPAY ==
--- NOTE | 2022-09-28 14:09 | NEURO ---
NCS and/or EMG Patient Report Ordering Doctor: Juaquin Kay DATE OF SERVICE: 09/28/22 Isha presents for electrodiagnostic testing of the right upper limb. She reports numbness and tingling in the right hand. Electrodiagnostic findings: Right median motor nerve demonstrates prolonged latency with reduced amplitude and reduced conduction velocity. Right ulnar motor response is within normal limits, including conduction across the elbow. Prolonged right median sensory latency at the wrist. Normal ulnar and radial sensory responses. Prolonged right median F-wave. Needle EMG testing was performed the right upper limb. All muscles tested, including the right cervical paraspinals, showed no evidence of denervation with normal motor unit action potentials. Electrodiagnostic impression: This is an abnormal study of the right upper limb. 1. Electrodiagnostic findings suggestive of right median mononeuropathy. This is consistent with a moderate to advanced right carpal tunnel syndrome. Multi Select Codes Neurology Neurology Interp Codes: 13778-89 Musc test done w/n test comp (interp) and 88501-65 Nrv cndj tst 5-6 studies (interp)
== END | disposition home or self-care (01) ==
LOC: PSN 08:10
PROVIDERS: PCP Family Medicine; Referring Provider Student in an Organized Health Care Education/Training Program; Visit Provider Student in an Organized Health Care Education/Training Program
DX: R20.2 Paresthesia of skin (principal)
CPT/HCPCS: 95886; 95909

== ENCOUNTER → 2022-10-11 | Outpatient (CLI) | payer MEDICARE, SELFPAY ==
[2022-10-11 13:02] LABS: Absolute Lymphocyte Count 1.28 X10^3/uL (0.83-4.51); Absolute Neutrophil Count 7.5 X10^3/uL (2.0-7.7); Basophil# 0.03 X10^3/uL; Basophil% 0.3 % (0-1); Hematocrit 36.8 % (37-47); Hemoglobin 12.2 g/dL (12.0-15.0); Lymphocyte # 1.28 X10^3/ul (0.83-4.51); Mean Corp Hgb Conc 33.2 g/dL (32-36); Mean Corpuscular Hgb 31.4 pg (27.0-32.0); Mean Corpuscular Volume 94.8 fL (81-99); Mean Platelet Vol. 9.9 fl (6.2-12.0); Monocyte# 0.93 X10^3/uL; Monocyte% 9.4 % (0-10); NRBC Flagged by Analyzer 0 % (0-5); Neutrophil # 7.54 X10^3/uL (2.7-7.7); Neutrophil % 76.4 % (47-70); Platelet Count 300 K/mm3 (150-450); RBC Distribution Width CV 12.3 % (11.6-14.6); RBC Distribution Width SD 42.8 fl (35.1-43.9); Red Blood Count 3.88 M/mm3 (4.2-5.4); White Blood Count 9.9 K/mm3 (4.4-11.0)
[2022-10-11 13:23] LABS: Anion Gap 5 (5-15); BUN 21 mg/dL (7-18); BUN/Creat Ratio 17.9 RATIO (10-20); Calcium,Total 11.2 mg/dL (8.5-10.1); Chloride 108 mmol/L (98-107); Creatinine, Serum 1.17 mg/dL (0.55-1.02); EST Glomerular Filtration Rate 48 mL/min (>60); Est Glom Filt Rate - Afr Amer 58 mL/min (>60); Glucose 104 mg/dL (74-106); Potassium 4.5 mmol/L (3.5-5.1); Sodium Level 135 mmol/L (136-145)
== END | disposition home or self-care (01) ==
LOC: LAB 12:09
PROVIDERS: PCP Family Medicine; Referring Provider Student in an Organized Health Care Education/Training Program; Visit Provider Student in an Organized Health Care Education/Training Program
DX: Z01.818 Encounter for other preprocedural examination (principal)
CPT/HCPCS: 36415; 80048; 85025

== ENCOUNTER → 2022-12-05 | Outpatient (CLI) | payer MEDICARE, SELFPAY ==
--- NOTE | 2022-12-05 12:08 | BI_ITS ---
MAMMOGRAPHY - BILATERAL SCREENING REASON FOR EXAM: Female, 77 years old. Routine annual screening examination. PERTINENT HISTORY: Grandmother with breast cancer. Prior right stereotactic breast biopsy. TECHNIQUE: Digital bilateral breast omega (3D mammographic acquisition) in the CC and MLO projections. 2-D mediolateral oblique (MLO) and craniocaudad (CC) views of both breasts were obtained. CAD: Full Field Digital Mammography with Computer Added Detection was performed. COMPARISON: Comparison is made with prior study of October 26, 2021 and October 22, 2020. FINDINGS: Breast Composition: There are scattered areas of fibroglandular density. There are no dominant masses or suspicious calcifications. A tissue clip marker is once again seen in the anterior central slightly lateral aspect of the right breast. Stable small benign-appearing bilateral axillary lymph nodes. No other significant abnormalities are identified. There has been no significant change since the prior study. BI/SCRN MAMM (CAD)W/OMEGA BILAT IMPRESSION: Stable bilateral screening mammogram. Yearly follow-up mammogram recommended. (A) ASSESSMENT CATEGORY: BIRADS Category 2: Benign. A letter regarding these results will be sent to the patient by the facility within 30 days. Approximately 10% of breast cancers are not detected by mammography. A normal mammogram should not delay biopsy of a clinically suspicious abnormality. [id number] Electronically Signed: Rodo Siegel MD at 14:27 EDT ,
== END | disposition home or self-care (01) ==
PROVIDERS: PCP Family Medicine; Referring Provider Family Medicine; Visit Provider Family Medicine
DX: Z12.31 Encounter for screening mammogram for malignant neoplasm of breast (principal)
CPT/HCPCS: 77063; 77067

== ENCOUNTER 2023-02-22 12:40 | Outpatient (CLI) | payer MEDICARE, SELFPAY ==
[2023-02-22 13:06] VITALS: BP 157/62; PULSE 83; RESP 16; TEMP 36.3; O2SAT 97; BMI 31.2
[2023-02-22] MEDS: DENOSUMAB 60 MG/ML SC (13:09)
== END 2023-02-22 12:41 | disposition home or self-care (01) ==
LOC: MEDOUTP 12:40
PROVIDERS: PCP Family Medicine; Referring Provider Internal Medicine Endocrinology, Diabetes & Metabolism; Visit Provider Internal Medicine Endocrinology, Diabetes & Metabolism
DX: M81.0 Age-related osteoporosis without current pathological fracture (principal)
CPT/HCPCS: 96372; J0897

== ENCOUNTER → 2023-06-20 | Outpatient (CLI) | payer MEDICARE, SELFPAY ==
--- NOTE | 2023-06-20 11:33 | NEURO ---
NCS and/or EMG Patient Report Ordering Doctor: Juaquin Kay DATE OF SERVICE: 06/20/23 Clinical Summary: 77 year old female patient with symptoms of numbness in the third and fourth digits of the right hand. She denies having any numbness in the fifth digit of the right hand. She has undergone right carpal tunnel release surgery in September 2022. Nerve Conduction Studies Summary: The right median-D2 SNAP distal latency was prolonged with reduced amplitude. The right ulnar-D5 SNAP distal latency was prolonged. The right median-APB CMAP distal latency was prolonged with reduced amplitude. The right ulnar motor conduction velocity was reduced in the forearm segment. Needle Examination Summary: Needle examination demonstrated a higher proportion of motor unit action potentials with increased amplitude, increased duration, and polyphasia in the right abductor pollicis brevis muscle. Impression: There is electrodiagnostic evidence of the following - 1) Severe, right median mononeuropathy at the wrist (carpal tunnel syndrome), with secondary motor fiber axonal loss In comparison to the EMG/NCS performed on 09/28/22, there has been mild interval worsening of the right median sensory and motor response amplitudes. Multi Select Codes Neurology Neurology Interp Codes: 70504-89 Musc test done w/n test comp (interp) (1) and 94590-11 Nrv cndj tst 5-6 studies (interp)
== END | disposition home or self-care (01) ==
LOC: PSN 10:15
PROVIDERS: PCP Family Medicine; Referring Provider Student in an Organized Health Care Education/Training Program; Visit Provider Student in an Organized Health Care Education/Training Program
DX: G56.01 Carpal tunnel syndrome, right upper limb (principal); R20.2 Paresthesia of skin
CPT/HCPCS: 95886; 95909

== ENCOUNTER → 2023-08-03 | Outpatient (CLI) | payer MEDICARE, SELFPAY ==
[2023-08-03 15:34] LABS: Absolute Lymphocyte Count 1.55 X10^3/uL (0.83-4.51); Absolute Neutrophil Count 4.8 X10^3/uL (2.0-7.7); Basophil# 0.06 X10^3/uL; Basophil% 0.8 % (0-1); Eosinophil# 0.18 X10^3/uL; Eosinophils% 2.4 % (0-5); Hematocrit 34.7 % (37-47); Hemoglobin 11.4 g/dL (12.0-15.0); Lymphocyte # 1.55 X10^3/ul (0.83-4.51); Lymphocyte % 20.9 % (19-41); Mean Corp Hgb Conc 32.9 g/dL (32-36); Mean Corpuscular Hgb 31.5 pg (27.0-32.0); Mean Corpuscular Volume 95.9 fL (81-99); Mean Platelet Vol. 10.4 fl (6.2-12.0); Monocyte# 0.78 X10^3/uL; Monocyte% 10.5 % (0-10); NRBC Flagged by Analyzer 0 % (0-5); Neutrophil # 4.82 X10^3/uL (2.7-7.7); Neutrophil % 65.1 % (47-70); Platelet Count 303 K/mm3 (150-450); RBC Distribution Width CV 11.7 % (11.6-14.6); RBC Distribution Width SD 40.9 fl (35.1-43.9); Red Blood Count 3.62 M/mm3 (4.2-5.4); White Blood Count 7.4 K/mm3 (4.4-11.0)
[2023-08-03 16:01] LABS: Vitamin D,25 Hydroxy 36.8 ng/mL
[2023-08-03 16:10] LABS: ALB/GLOB Ratio 1.1 RATIO (0.9-2.4); AST(SGOT) 19 U/L (15-37); Alanine Aminotransfer ALT/SGPT 22 U/L (13-56); Albumin, Serum 3.7 g/dL (3.2-5.0); Alkaline Phosphatase 58 U/L (45-117); Anion Gap 5 (5-15); BUN 14 mg/dL (7-18); BUN/Creat Ratio 14.4 RATIO (10-20); Calcium,Total 11.8 mg/dL (8.5-10.1); Chloride 106 mmol/L (98-107); Cholesterol 167 mg/dL (200); Creatinine, Serum 0.97 mg/dL (0.55-1.02); EST Glomerular Filtration Rate 59 mL/min (>60); Est Glom Filt Rate - Afr Amer 72 mL/min (>60); Globulin 3.3 g/dL (2.2-4.2); Glucose 88 mg/dL (74-106); High Density Lipoprotein 61 mg/dL; Potassium 4.7 mmol/L (3.5-5.1); Sodium Level 136 mmol/L (136-145); Thyroid Stim Hormone (TSH) 1.54 uIU/mL (0.358-3.74); Triglycerides 188 mg/dL; Very Low Density Lipoprotein 38 mg/dL (5-40)
== END | disposition home or self-care (01) ==
PROVIDERS: PCP Family Medicine; Referring Provider Family Medicine; Visit Provider Family Medicine
DX: I12.9 Hypertensive chronic kidney disease with stage 1 through stage 4 chronic kidney disease, or unspecified chronic kidney disease (principal); E21.3 Hyperparathyroidism, unspecified; Z86.39 Personal history of other endocrine, nutritional and metabolic disease
CPT/HCPCS: 36415; 80053; 80061; 82306; 84443; 85025

== ENCOUNTER 2023-08-23 12:38 | Outpatient (CLI) | payer MEDICARE, SELFPAY ==
[2023-08-23 12:45] VITALS: BP 137/48; PULSE 89; RESP 16; TEMP 36.1; O2SAT 95; BMI 31.2
[2023-08-23] MEDS: DENOSUMAB 60 MG/ML SC (13:10)
== END 2023-08-23 23:59 | disposition home or self-care (01) ==
LOC: MEDOUTP 12:39
PROVIDERS: PCP Family Medicine; Referring Provider Internal Medicine Endocrinology, Diabetes & Metabolism; Visit Provider Internal Medicine Endocrinology, Diabetes & Metabolism
DX: M81.0 Age-related osteoporosis without current pathological fracture (principal); E21.3 Hyperparathyroidism, unspecified
CPT/HCPCS: 96372; J0897

== ENCOUNTER → 2023-12-07 | Outpatient (CLI) | payer MEDICARE, SELFPAY ==
--- NOTE | 2023-12-07 12:24 | BI_ITS ---
MAMMOGRAPHY - BILATERAL SCREENING REASON FOR EXAM: Female, 78 years old. Routine annual screening examination. PERTINENT HISTORY: Grandmother with breast cancer. Prior right stereotactic breast biopsy. TECHNIQUE: Digital bilateral breast omega (3D mammographic acquisition) in the CC and MLO projections. 2-D mediolateral oblique (MLO) and craniocaudad (CC) views of both breasts were obtained. CAD: Full Field Digital Mammography with Computer Added Detection was performed. COMPARISON: Comparison is made with prior study December 05, 2022 and October 26, 2021. FINDINGS: Breast Composition: There are scattered areas of fibroglandular density. There are no dominant masses or suspicious calcifications. A tissue clip marker is once again seen in the anterior central slightly lateral aspect of the right breast. Stable small axillary lymph nodes. No other significant abnormalities are identified. There has been no significant change since the prior study. BI/SCRN MAMM (CAD)W/OMEGA BILAT IMPRESSION: Stable bilateral screening mammogram. Yearly follow-up mammogram recommended. (A) ASSESSMENT CATEGORY: BIRADS Category 2: Benign. A letter regarding these results will be sent to the patient by the facility within 30 days. Approximately 10% of breast cancers are not detected by mammography. A normal mammogram should not delay biopsy of a clinically suspicious abnormality. [id number] Electronically Signed: Rodo Siegel MD at 13:28 EDT ,
== END | disposition home or self-care (01) ==
LOC: OPBI 12:24
PROVIDERS: PCP Family Medicine; Referring Provider Family Medicine; Visit Provider Family Medicine
DX: Z12.31 Encounter for screening mammogram for malignant neoplasm of breast (principal); Z80.3 Family history of malignant neoplasm of breast
CPT/HCPCS: 77063; 77067

== ENCOUNTER → 2023-12-26 | Outpatient (CLI) | payer MEDICARE, SELFPAY ==
[2023-12-26 14:58] LABS: PTHIN 303.3 pg/mL (18.4-80.1)
[2023-12-26 15:00] LABS: ALB/GLOB Ratio 1.1 RATIO (0.9-2.4); AST(SGOT) 23 U/L (15-37); Alanine Aminotransfer ALT/SGPT 24 U/L (13-56); Albumin, Serum 3.8 g/dL (3.2-5.0); Alkaline Phosphatase 63 U/L (45-117); Anion Gap 5 (5-15); BUN 17 mg/dL (7-18); BUN/Creat Ratio 15.3 RATIO (10-20); Calcium,Total 11.4 mg/dL (8.5-10.1); Chloride 105 mmol/L (98-107); Creatinine, Serum 1.11 mg/dL (0.55-1.02); EST Glomerular Filtration Rate 51 mL/min (>60); Est Glom Filt Rate - Afr Amer 61 mL/min (>60); Globulin 3.6 g/dL (2.2-4.2); Glucose 97 mg/dL (74-106); Potassium 4.6 mmol/L (3.5-5.1); Protein, Total 7.4 g/dL (6.4-8.2); Sodium Level 136 mmol/L (136-145)
[2023-12-26 15:03] LABS: Vitamin D,25 Hydroxy 30.7 ng/mL
== END | disposition home or self-care (01) ==
LOC: LAB 13:54
PROVIDERS: PCP Family Medicine; Referring Provider Internal Medicine Endocrinology, Diabetes & Metabolism; Visit Provider Internal Medicine Endocrinology, Diabetes & Metabolism
DX: M81.0 Age-related osteoporosis without current pathological fracture (principal); E55.9 Vitamin D deficiency, unspecified; E21.0 Primary hyperparathyroidism
CPT/HCPCS: 36415; 80053; 82306; 83970

== ENCOUNTER → 2024-08-26 | Outpatient (CLI) | payer MEDICARE, SELFPAY ==
[2024-08-26 16:03] LABS: Ferritin 208 ng/mL (22-378); Vitamin B12 1101 pg/mL (180-914)
[2024-08-27 16:44] LABS: ALB/GLOB Ratio 1.7 RATIO (0.9-2.4); AST(SGOT) 24 U/L (<=31); Alanine Aminotransfer ALT/SGPT 15 U/L (<=34); Albumin, Serum 4.3 g/dL (3.4-4.8); Alkaline Phosphatase 76 U/L (35-104); Anion Gap 13 (5-15); BUN 18 mg/dL (4-19); BUN/Creat Ratio 15.1 RATIO (10-20); Calcium,Total 13.7 mg/dL (7.6-11.0); Carbon Dioxide 23.3 mmol/L (21.0-32.0); Chloride 102 mmol/L (98-108); Creatinine, Serum 1.19 mg/dL (0.70-1.20); EST Glomerular Filtration Rate 47 (>60); Globulin 2.5 g/dL (2.2-4.2); Glucose 107 mg/dL (70-99); Potassium 4.5 mmol/L (3.3-5.1); Protein, Total 6.8 g/dL (5.9-8.4); Sodium Level 138 mmol/L (133-145); Total Bilirubin 0.23 mg/dL (0.00-1.30)
== END | disposition home or self-care (01) ==
LOC: LAB 14:22
PROVIDERS: PCP Family Medicine; Referring Provider Internal Medicine Endocrinology, Diabetes & Metabolism; Visit Provider Internal Medicine Endocrinology, Diabetes & Metabolism
DX: E55.9 Vitamin D deficiency, unspecified (principal); E21.0 Primary hyperparathyroidism; D50.9 Iron deficiency anemia, unspecified; M81.0 Age-related osteoporosis without current pathological fracture
CPT/HCPCS: 36415; 80053; 82306; 82607; 82728

== ENCOUNTER 2024-08-28 17:16 | Emergency (ER) | payer MEDICARE, SELFPAY ==
[2024-08-28 17:16] VITALS: BP 192/70; PULSE 94; RESP 18; TEMP 36.4; O2SAT 99; BMI 32.8
--- NOTE | 2024-08-28 18:17 | EKG12_ITS ---
Test Reason : DYSRHYTHMIA Blood Pressure : */* mmHG Vent. Rate : 83 BPM Atrial Rate : 83 BPM P-R Int : 166 ms QRS Dur : 80 ms QT Int : 366 ms P-R-T Axes : 58 20 37 degrees QTcB Int : 430 ms Normal sinus rhythm Normal ECG Confirmed by BRIDGETTE VALLE, CHARLES ([id number]), book or script editor SAMIRA ERNST ([id number]) on 08/29/2024 10:07:31 AM Referred By: Confirmed By: CHARLES ANGELES MD
--- NOTE | 2024-08-28 18:17 | EKG12_ITS ---
Test Reason : DYSRHYTHMIA Blood Pressure : */* mmHG Vent. Rate : 83 BPM Atrial Rate : 83 BPM P-R Int : 166 ms QRS Dur : 80 ms QT Int : 366 ms P-R-T Axes : 58 20 37 degrees QTcB Int : 430 ms Normal sinus rhythm Normal ECG Confirmed by BRIDGETTE VALLE, CHARLES ([id number]), offline editor SAMIRA ERNST ([id number]) on 08/29/2024 10:07:31 AM Referred By: Confirmed By: CHARLES ANGELES MD
[2024-08-28] MEDS: 0.9% Normal Saline (1000mL) 1,000 ML 1000 ML IV (18:37)
[2024-08-28 19:16] VITALS: BP 160/71; PULSE 78; RESP 16; O2SAT 100
[2024-08-28 19:18] LABS: Hematocrit 35.6 % (37-47); Hemoglobin 12.3 g/dL (12.0-15.0); Immature Granulocytes Count 0.040 X10^3/uL (0.0-0.0); Mean Corp Hgb Conc 34.6 g/dL (32-36); Mean Corpuscular Volume 93.9 fL (81-99); Mean Platelet Vol. 10.3 fl (6.2-12.0); NRBC Flagged by Analyzer 0 % (0-5); Platelet Count 262 K/mm3 (150-450); RBC Distribution Width CV 11.9 % (11.6-14.6); RBC Distribution Width SD 40.4 fl (35.1-43.9); Red Blood Count 3.79 M/mm3 (4.2-5.4); White Blood Count 8.4 K/mm3 (4.4-11.0)
[2024-08-28] MEDS: 0.9% Normal Saline (1000mL) 1,000 ML 250 ML IV (19:45)
[2024-08-28 19:51] LABS: AST(SGOT) 29 U/L (<=31); Alanine Aminotransfer ALT/SGPT 16 U/L (<=34); Albumin, Serum 4.4 g/dL (3.4-4.8); Alkaline Phosphatase 80 U/L (35-104); Anion Gap 14 (5-15); BUN 17 mg/dL (4-19); BUN/Creat Ratio 16.1 RATIO (10-20); Calcium,Total 11.4 mg/dL (7.6-11.0); Carbon Dioxide 19.3 mmol/L (21.0-32.0); Chloride 104 mmol/L (98-108); Estimated Creatinine Clearance 40.44 ml/min (50-250); Globulin 2.6 g/dL (2.2-4.2); Glucose 89 mg/dL (70-99); Potassium 4.3 mmol/L (3.3-5.1)
[2024-08-28 20:01] LABS: Mucous, Urine 0 SEEN /hpf (<or=2+)
[2024-08-28 20:14] LABS: Color, Urine Yellow (Yellow); Glucose, Dipstick Normal (Normal); Ketone-Dipstick 5 mg/dl (Negative); Leukocyte Esterase-Dipstick 25 /ul (Negative); Nitrite-Dipstick Negative (Negative); Occult Blood-Urine Negative /ul (Negative); Protein-Dipstick Negative (Negative); Specific Gravity, Urine 1.010 (1.002-1.030); Urine Bilirubin Dipstick Negative (Negative)
--- NOTE | 2024-08-28 20:15 | EDS_ITS ---
HPI History of Present Illness Chief Complaint: Abn Labs Detail of Chief Complaint: Elevated calcium, 13.7 Informant: patient Onset/Context/Timing Onset: Days (Abnormal blood work August 26, calcium 13.7) Context: - (Unknown) Timing: - (Presumed continuous) Quality: Elevated calcium Location: Electrolytes Current Severity: Unknown repeating Maximum Severity: Moderate Worsened by: History of parathyroid hyperactivity Relieved by: Nothing Associated Symptoms Associated Symptoms: Increased thirst Narrative Narrative: Patient is a 78-year-old woman with history of iron deficiency anemia, hypertension, peptic ulcer disease, hyperactive parathyroid and osteopenia porosis. She is under the care of Dr. Guicho Quezada. She had blood work on August 26. Her calcium at that time was 13.7. She has had elevated calciums in the past in the mid to low 11 range. She denies headache, visual, ocular auditory symptoms. She denies trouble speech or swallowing. She denies paresthesia, anesthesia Medicus upper or lower extremity. Denies problems with coordination or balance She denies cardiac respiratory symptoms. Denies abdominal pain, nausea, vomiting, diarrhea or constipation. She denies dysuria, urgency, hematuria. She states she has frequency. She states has been drinking more fluids recently. She does not have history of diabetes. Patient denies weight loss. Patient denies bone pain. Patient denies history of cancer. Prior similar symptoms: Yes Recent Illness/Hospitalization: No [facility] Medical History Vitamin D deficiency Abnormal mammogram of right breast Heart murmur Acid reflux Arthritis HTN (hypertension) Home Medications ?Medication ?Instructions ?Recorded ?Last Taken ?Type omeprazole magnesium 20 mg 20 mg PO DAILY 05/20/17 Unk nown History tablet,delayed release aspirin 81 mg chewable tablet 81 mg PO QDAY 08/17/17 U nknown History multivitamin with iron 1 tab PO QDAY 08/17/17 Unkno wn History ferrous sulfate 325 mg (65 mg 325 mg PO DAILY 10/23/20 Unknown History iron) tablet (FeroSul) latanoprost 0.005 % eye drops 1 ml ophthalmic (eye) DA ROSY 10/23/20 Unknown History lisinopril 20 mg tablet 20 mg PO DAILY 10/23/20 Unkn own History simvastatin 20 mg tablet 20 mg PO DAILY 10/23/20 Unkn own History vit C 250 mg-vit E 90 mg-zinc 40 1 tab PO BID 08/18/21 Unknown History mg-copper 1 [id number] capsule (PreserVision AREDS-2) denosumab 60 mg/mL subcutaneous 60 mg subcut [id number] #1 mL 10/20/22 Unknown Rx syringe (Prolia) cholecalciferol (vitamin D3) 25 50 mcg PO QDAY 5 Unknown History mcg (1,000 unit) capsule Allergy/AdvReac Type Severity Reaction Status Date / Time No Known Allergies Allergy Verified 08/28/24 17:18 Family History Grandmother Breast cancer Surgical History H/O colonoscopy Ankle fracture History of hip surgery Social History (Updated 08/28/24 @ 20:[address] Lorne Cherry MD) household members: spouse Smoking Status: Former smoker alcohol intake: current alcohol intake frequency: holidays/special occasions only ROS ROS ED Constitutional Constitutional ED: Denies chills, fever(s), subjective or sweats Eyes Eyes: Denies blurry vision or change in vision ENT ENT ED: Denies rhinorrhea or sore throat Cardiovascular Cardiovascular: Denies chest pain or palpitations Respiratory/Chest Respiratory/Chest: Denies cough, dyspnea or dyspnea on exertion Gastrointestinal Gastrointestinal: Denies abdominal pain, constipation, diarrhea, melena, nausea or vomiting Genitourinary Genitourinary ED: Reports urinary frequency; Denies dysuria or hematuria Musculoskeletal Musculoskeletal: Denies arthralgias or myalgias Integumentary Denies rash Neurologic Neurologic: Denies headache(s), paresthesias or weakness Psychiatric Psychiatric: Denies anxiety or depression Endocrine Endocrinology: Denies cold intolerance or heat intolerance Hematologic/Lymphatic Hematologic/Lymphatic: Reports systems reviewed and no addt'l complaints, except as documented EXAM Physical Exam Const Vital Signs: 08/28/24 17:16 08/28/24 18:16 08/28/24 19:16 Temperature 97.5 F L Temperature Source Oral Pulse Rate 94 78 Respiratory Rate 18 16 Respiratory Effort Normal Non-Labored Blood Pressure 192/70 H 160/71 H Blood Pressure Mean 110 100 Pulse Ox 99 100 Oxygen Delivery Method Room Air Room Air Positive well nourished and well developed Constitutional Narrative: Blood pressure is elevated. She does have a history of hypertension. This sl ightly higher than normal. She appears in no distress BMI is 32.8. General Appearance ED: well developed and NAD; Negative for cyanotic, diaphoretic or pallor HEENT Reports moist mucous membranes HEENT Narrative: Head is atraumatic normocephalic. Ears normal. Nares patent. Uvula midline. No deviation of the tongue with protrusion. Eyes PERRL and EOMs intact bilaterally General Eye ED: Negative for pale conjunctiva or scleral icterus Neck no lymphadenopathy and supple Resp normal respiratory effort and clear to auscultation bilaterally Cardio regular rate, regular rhythm, S1 normal heart sound, S2 normal heart sound and no murmurs GI normal to inspection, nondistended, normoactive bowel sounds, non-tender, non- distended and no masses; Negative for hepatosplenomegaly Back/Spine no CVA tenderness Neuro oriented x3, CN's II-XII intact bilaterally and no sensory deficits noted Neuro Narrative: There is no clonus or Babinski sign noted. Sensorium / Orientation: alert Psych mental status grossly normal Skin no rashes or lesions noted, no wounds and skin turgor normal General Skin Exam: elasticity normal; Negative for jaundice or pallor MDM MDM MDM Narrative Medical decision making narrative: Competence of metabolic panel was obtained to reassess calcium and check albumin since this has not been checked for some time. Also to assess renal function. CBC to assess for anemia patient received 1 L of normal saline wide open and second liter to 50 an hour. This was for treatment of her hypercalcemia. EKG was obtained to assess for EKG changes. Should be a short CT interval etc. Lab Data Lab results narrative: CBC reveals mild anemia with normal indices. Comprehensive metabolic panel reveals a calcium of 1.4 which is her baseline. Competence of metabolic panel otherwise is normal. Labs: Laboratory Results - last 24 hr 08/28/24 18:26 WBC 8.4 RBC 3.79 L Hgb 12.3 Hct 35.6 L MCV 93.9 MCH 32.5 H MCHC 34.6 RDW Std Deviation 40.4 RDW Coeff of Kyler 11.9 Plt Count 262 MPV 10.3 Immature Gran % (Auto) 0.500 Neut % (Auto) 67.4 Lymph % (Auto) 19.2 Petroleum % (Auto) 9.6 Eos % (Auto) 2.7 Baso % (Auto) 0.6 Absolute Neuts (auto) 5.7 Absolute Lymphs (auto) 1.62 Nucleated RBC % 0 Sodium 138 Potassium 4.3 Chloride 104 Carbon Dioxide 19.3 L Anion Gap 14 BUN 17 Creatinine 1.08 Estim Creat Clear Calc 40.44 L Est GFR (MDRD) Non-Af 53 L BUN/Creatinine Ratio 16.1 Glucose 89 Calcium 11.4 H Total Bilirubin 0.30 AST 29 ALT 16 Alkaline Phosphatase 80 Total Protein 7.0 Albumin 4.4 Globulin 2.6 Albumin/Globulin Ratio 1.7 EKG Initial EKG: Attestation: I personally reviewed and interpreted this EKG as follows: Interpretation: Sinus Rhythm (Rate is 79. [place] the left. CT interval is 204 ms. Cures duration 80 ms. QT duration 286 ms.) Prior: Unchanged Treatment and Re-Evaluation :: Since patient's calcium today is 1.4 will discharge to home Discharge Plan Triage Chief Complaint: Abn Labs ED Provider: Lorne Cherry Dx/Rx/DC Orders Clinical Impression: Hypercalcemia, Primary hyperparathyroidism, Vitamin D deficiency Instructions: Hypercalcemia Dc Prescriptions: No Action multivitamin with iron tablet 1 tab PO QDAY aspirin 81 mg tablet,chewable 81 mg PO QDAY lisinopril 20 mg tablet 20 mg PO DAILY Patient Comments: Take 1 tablet by mouth daily simvastatin 20 mg tablet 20 mg PO DAILY Patient Comments: Take 1 tablet by mouth daily latanoprost 0.005 % drops 1 ml ophthalmic (eye) DAILY Patient Comments: instill 1 (ONE) drop into both eyes EVERY NIGHT AT BEDTIME ferrous sulfate [FeroSul] 325 mg (65 mg iron) tablet 325 mg PO DAILY Prolia 60 mg/mL syringe 60 mg SC [id number] Qty: 1 1RF cholecalciferol (vitamin D3) 25 mcg (1,000 unit) capsule 50 mcg PO QDAY omeprazole magnesium 20 MG tablet,delayed release (DR/EC) 20 mg PO DAILY PreserVision AREDS-2 250-90-40-1 mg Capsule 1 tab PO BID Primary Care Provider: Se Bryan Referrals: Se Bryan MD [Primary Care Provider] - Guicho Quezada MD [Med Staff - Courtesy Staff] - As Needed Print Language: Polish Disposition Disposition: Home, Self Care
[2024-08-28 20:17] VITALS: BP 153/70; PULSE 84; RESP 16; TEMP 36.5; O2SAT 99
[2024-08-28 21:00] VITALS: BP 158/70; PULSE 79; RESP 22; O2SAT 99
[2024-08-28 21:19] LABS: Red Blood Cells-Urine 0-5 SEEN /hpf (0-5); Squamous Epithelial Cells - UA 0-5 SEEN /hpf (5-10)
== END 2024-08-28 21:38 | disposition home or self-care (01) ==
PROVIDERS: Emergency Provider Emergency Medicine; PCP Family Medicine; Visit Provider Emergency Medicine
DX: R79.89 Other specified abnormal findings of blood chemistry (principal); E21.0 Primary hyperparathyroidism; E55.9 Vitamin D deficiency, unspecified; Z87.891 Personal history of nicotine dependence; I10 Essential (primary) hypertension; K21.9 Gastro-esophageal reflux disease without esophagitis; Z79.899 Other long term (current) drug therapy; Z79.82 Long term (current) use of aspirin
CPT/HCPCS: 80053; 81001; 85025; 93005; 96360; 96361; 99283; A4216

== ENCOUNTER → 2024-10-11 | Outpatient (CLI) | payer MEDICARE, SELFPAY ==
[2024-10-11 15:52] LABS: AST(SGOT) 21 U/L (<=31); Alanine Aminotransfer ALT/SGPT 18 U/L (<=34); Albumin, Serum 4.5 g/dL (3.4-4.8); Alkaline Phosphatase 71 U/L (35-104); Anion Gap 11 (5-15); BUN 17 mg/dL (4-19); BUN/Creat Ratio 15.5 RATIO (10-20); Calcium,Total 12.1 mg/dL (7.6-11.0); Carbon Dioxide 22.6 mmol/L (21.0-32.0); Chloride 104 mmol/L (98-108); Globulin 2.6 g/dL (2.2-4.2); Glucose 100 mg/dL (70-99); Potassium 4.3 mmol/L (3.3-5.1)
== END | disposition home or self-care (01) ==
LOC: MTLAB 12:34
PROVIDERS: PCP Family Medicine; Referring Provider Internal Medicine Endocrinology, Diabetes & Metabolism; Visit Provider Internal Medicine Endocrinology, Diabetes & Metabolism
DX: E83.52 Hypercalcemia (principal)
CPT/HCPCS: 36415; 80053

== ENCOUNTER → 2024-11-04 | Outpatient (CLI) | payer MEDICARE, SELFPAY ==
--- NOTE | 2024-11-04 13:39 | US_ITS ---
PROCEDURE: THYROID 11/04/2024 REASON FOR EXAM: PARATHYROID LOCALIZATION. Hyperparathyroidism. TECHNIQUE: Procedure Code: USTHY Modality: US Procedure: THYROID COMPARISON: None FINDINGS: Right thyroid lobe size: 3.7 cm x 1.6 cm x 1.7 cm Left thyroid lobe size: 3.3 cm by 1.5 cm 1.3 cm Isthmus: 0.3 cm Background parenchymal echotexture is homogeneous. Nodules: . Lobe: Right, Location: Mid pole, Size: 0.6 cm x 0.5 cm 0.4 cm, Stability: N/A Composition: Solid or almost completely solid (+2) Echogenicity: Hypoechoic (+2) Margin: Smooth (+0) Shape: Wider than tall (+0) Echogenic Foci: None (+0) TI-RADS: 4 . Lobe: Left, Location: Mid, Size: 0.3 cm x 0.5 cm 0.3 cm, Stability: N/A Composition: Solid or almost completely solid (+2) Echogenicity: Hypoechoic (+2) Margin: Smooth (+0) Shape: Wider than tall (+0) Echogenic Foci: None (+0) TI-RADS: 4 Inferior to the right lobe of the thyroid, there is a 1 cm x 0.6 cm 0.3 cm hypoechoic nodular density. No evidence of vascularity. This may represent a parathyroid gland. There is also evidence of an 8 mm x 5 mm x 4 mm echogenic nodule inferior to the left lobe of the thyroid gland suggestive of possible parathyroid. Inferior to the left lobe of the thyroid there is an heterogeneous vascular hypoechoic nodular density measuring 2.2 cm 1.1 cm 1 cm. Biopsy recommended. US/Thyroid IMPRESSION: Subcentimeter bilateral nodules in both lobes of the thyroid as described. Heterogeneous complex nodule inferior to the left lobe of the thyroid measuring 2.2 cm 1.1 cm 1 cm with vascularity. Biopsy recommended. RECOMMENDATION: Based on most suspicious nodule. Nodule size = largest diameter Only evaluate nodule if =>5 mm. Growth > 20% in 2 dimensions = worsening. Follow up to 4 nodules. Recommend biopsy for no more than 2 nodules. Reading Location: [id number]
== END | disposition home or self-care (01) ==
LOC: US 13:34
PROVIDERS: PCP Family Medicine; Referring Provider Internal Medicine Endocrinology, Diabetes & Metabolism; Visit Provider Internal Medicine Endocrinology, Diabetes & Metabolism
DX: E21.0 Primary hyperparathyroidism (principal)
CPT/HCPCS: 76536

== ENCOUNTER → 2024-11-05 | Outpatient (CLI) | payer MEDICARE, SELFPAY ==
--- NOTE | 2024-11-05 10:12 | NM_ITS ---
PROCEDURE: PARATHYROID SCAN REASON FOR EXAM: PRIMARY HYPERPARA LOCALIZATION. Hypercalcemia. Posterior left inferior thyroid nodule. TECHNIQUE: Procedure Code: NMPTHY Modality: NM Procedure: PARATHYROID SCAN Imaging performed following intravenous technetium-99m sestamibi administration. Anterior imaging of the neck on immediate and delayed imaging was performed. RADIOPHARMACEUTICAL: Technetium 99 M sestamibi DOSE 26.7mCi intravenous. COMPARISON: Thyroid ultrasound of 11/04/2024. FINDINGS: Of the left inferior thyroid, a focus of increased uptake is seen, which persists on delayed images, with relative increased compared to the thyroid tissue on delayed imaging. This is concerning of the presence of a left parathyroid adenoma. NM/Parathyroid Scan IMPRESSION: Findings concerning for the presence of a left inferior parathyroid adenoma. Reading Location: [place] [id number]
== END | disposition home or self-care (01) ==
LOC: NM 10:10
PROVIDERS: PCP Family Medicine; Referring Provider Nurse Practitioner Family; Visit Provider Nurse Practitioner Family
DX: E21.0 Primary hyperparathyroidism (principal)
CPT/HCPCS: 78070; A9500

== ENCOUNTER → 2024-11-15 | Outpatient (CLI) | payer MEDICARE, SELFPAY ==
[2024-11-15 15:13] LABS: Hematocrit 32.5 % (37-47); Hemoglobin 11.3 g/dL (12.0-15.0); Immature Granulocytes Count 0.030 X10^3/uL (0.0-0.0); Mean Corp Hgb Conc 34.8 g/dL (32-36); Mean Corpuscular Volume 92.6 fL (81-99); Mean Platelet Vol. 10.0 fl (6.2-12.0); NRBC Flagged by Analyzer 0 % (0-5); Platelet Count 256 K/mm3 (150-450); RBC Distribution Width CV 12.3 % (11.6-14.6); RBC Distribution Width SD 41.8 fl (35.1-43.9); Red Blood Count 3.51 M/mm3 (4.2-5.4); White Blood Count 7.5 K/mm3 (4.4-11.0)
[2024-11-15 15:50] LABS: PTHIN 249 pg/mL (11-61)
[2024-11-15 15:56] LABS: Anion Gap 12 (5-15); BUN 14 mg/dL (4-19); BUN/Creat Ratio 13.6 RATIO (10-20); Calcium,Total 10.7 mg/dL (7.6-11.0); Carbon Dioxide 20.0 mmol/L (21.0-32.0); Chloride 106 mmol/L (98-108); Glucose 116 mg/dL (70-99); Potassium 4.2 mmol/L (3.3-5.1)
[2024-11-15 16:11] LABS: AST(SGOT) 22 U/L (<=31); Alanine Aminotransfer ALT/SGPT 17 U/L (<=34); Albumin, Serum 4.3 g/dL (3.4-4.8); Alkaline Phosphatase 55 U/L (35-104); Anion Gap 12 (5-15); BUN 14 mg/dL (4-19); BUN/Creat Ratio 14.1 RATIO (10-20); Calcium,Total 11.0 mg/dL (7.6-11.0); Carbon Dioxide 20.1 mmol/L (21.0-32.0); Chloride 106 mmol/L (98-108); Cholesterol 184 mg/dL (<=200); Globulin 2.5 g/dL (2.2-4.2); Glucose 87 mg/dL (70-99); Low Density Lipoprotein Calc. 79 mg/dL; Potassium 4.1 mmol/L (3.3-5.1); Triglycerides 163 mg/dL; Very Low Density Lipoprotein 33 mg/dL (5-40); cholesterol:hdl ratio screen 2.56
== END | disposition home or self-care (01) ==
LOC: LAB 14:23
PROVIDERS: Nurse Practitioner Family; PCP Family Medicine; Referring Provider Internal Medicine Endocrinology, Diabetes & Metabolism; Visit Provider Internal Medicine Endocrinology, Diabetes & Metabolism
DX: E83.52 Hypercalcemia (principal); Z86.39 Personal history of other endocrine, nutritional and metabolic disease; D64.9 Anemia, unspecified; I12.9 Hypertensive chronic kidney disease with stage 1 through stage 4 chronic kidney disease, or unspecified chronic kidney disease
CPT/HCPCS: 36415; 80048; 80053; 80061; 83970; 84443; 85025

== ENCOUNTER → 2024-12-03 | Outpatient (CLI) | payer MEDICARE, SELFPAY ==
[2024-12-03 15:26] LABS: Anion Gap 10 (5-15); BUN 19 mg/dL (4-19); BUN/Creat Ratio 17.9 RATIO (10-20); Calcium,Total 10.4 mg/dL (7.6-11.0); Carbon Dioxide 21.3 mmol/L (21.0-32.0); Chloride 106 mmol/L (98-108); Glucose 88 mg/dL (70-99); Potassium 4.5 mmol/L (3.3-5.1)
== END | disposition home or self-care (01) ==
LOC: LAB 14:12
PROVIDERS: PCP Family Medicine; Referring Provider Nurse Practitioner Family; Visit Provider Nurse Practitioner Family
DX: E83.52 Hypercalcemia (principal)
CPT/HCPCS: 36415; 80048

== ENCOUNTER → 2024-12-11 | Outpatient (CLI) | payer MEDICARE, SELFPAY ==
--- NOTE | 2024-12-11 14:22 | BD_ITS ---
PROCEDURE: DEXA BONE DENSITY STUDY 12/11/2024 REASON FOR EXAM: F, age 79 y/o . Postmenopausal. TECHNIQUE: Procedure Code: BDDBD Modality: DX Procedure: DEXA BONE DENSITY STUDY COMPARISON: October 26, 2021. FINDINGS: BMD and T-SCORES Lumbar spine: 1.104 g/cm2, T-score 0.5 Levels: L1 through L4 Change from prior: Improvement of 5.5%. Right femoral neck: 0.631 g/cm2, T-score -2.0 Femoral neck comparison data not recommended for monitoring change. Right total hip: 0.810 g/cm2, T-score -1.1 Change from prior: Loss of 0.1%. The World Health Organization has defined the following categories based on bone density: Normal bone density: T-score equal to or greater than -1.0 Osteopenia: T-score between -1.0 and -2.5 Osteoporosis: T-score equal to or less than -2.5 FRAX (or Comparable) Fracture Risk Assessment: 10 Year Probability of Fracture: Major Osteoporotic Fracture: 19% Hip Fracture: 4.6% (Note: FRAX is not to be reported in setting of normal range bone density, osteoporosis on DEXA, known history of osteoporosis, prior osteoporotic hip or vertebral fracture, or for any patient undergoing pharmacological treatment for bone loss.) The National Osteoporosis Foundation (NOF) recommends pharmacological treatment for patients with a FRAX 10-year risk of 3% or higher for a hip fracture, or 20% or higher for a major osteoporotic fracture, to prevent osteoporosis and reduce fracture risk. The patient does meet the pharmacological treatment recommendations for prevention of osteoporosis. BD/Dexa Bone Density Study IMPRESSION: OSTEOPENIA. Recommend follow-up as clinically warranted. Reading Location: [place] [id number]
--- NOTE | 2024-12-11 15:00 | BI_ITS ---
EXAM: SCRN MAMM (CAD)W/OMEGA BILAT DATE: 12/11/2024 CLINICAL HISTORY: F, Age 79 y/o , SCREENING Grandmother with breast cancer. Prior right stereotactic breast biopsy. TECHNIQUE: Procedure Code: BISMWCADBTOM Modality: MG Procedure: SCRN MAMM (CAD)W/OMEGA BILAT COMPARISON: Prior exam(s) dated December 07, 2023.. FINDINGS: TISSUE DENSITY: There are scattered areas of fibroglandular density. Bilateral Breast Mammographic Findings: There is a questionable 7.5 mm nodular density in the upper slightly lateral aspect of the left breast. The patient will be recalled for additional views of the left breast and possible ultrasound. Stable tissue clip marker in the upper lateral aspect of the left breast. BI/SCRN MAMM (CAD)W/OMGEA BILAT IMPRESSION: Questionable 7.5 mm nodular density in the upper slightly lateral aspect of the left breast as described best seen on the craniocaudad view. OVERALL FINAL ASSESSMENT BI-RADS 0: INCOMPLETE - NEED ADDITIONAL IMAGING EVALUATION. RECOMMENDATION: Additional Views obtained/call backs Additional Recommendation none A letter with findings and recommendations will be mailed to the patient. Reading Location: [place] [address]
--- NOTE | 2024-12-11 15:00 | BI_ITS ---
EXAM: SCRN MAMM (CAD)W/OMEGA BILAT DATE: 12/11/2024 CLINICAL HISTORY: F, Age 79 y/o , SCREENING Grandmother with breast cancer. Prior right stereotactic breast biopsy. TECHNIQUE: Procedure Code: [id number] Modality: MG Procedure: SCRN MAMM (CAD)W/OMEGA BILAT COMPARISON: Prior exam(s) dated December 07, 2023.. FINDINGS: TISSUE DENSITY: There are scattered areas of fibroglandular density. Bilateral Breast Mammographic Findings: There is a questionable 7.5 mm nodular density in the upper slightly lateral aspect of the left breast. The patient will be recalled for additional views of the left breast and possible ultrasound. Stable tissue clip marker in the upper lateral aspect of the left breast. BI/SCRN MAMM (CAD)W/OMEGA BILAT IMPRESSION: Questionable 7.5 mm nodular density in the upper slightly lateral aspect of the left breast as described best seen on the craniocaudad view. OVERALL FINAL ASSESSMENT BI-RADS 0: INCOMPLETE - NEED ADDITIONAL IMAGING EVALUATION. RECOMMENDATION: Additional Views obtained/call backs Additional Recommendation none A letter with findings and recommendations will be mailed to the patient. Reading Location: [place] [id number]
== END | disposition home or self-care (01) ==
LOC: OPBD 14:19
PROVIDERS: PCP Family Medicine; Referring Provider Family Medicine; Visit Provider Family Medicine
DX: Z12.31 Encounter for screening mammogram for malignant neoplasm of breast (principal); M85.88 Other specified disorders of bone density and structure, other site
CPT/HCPCS: 77063; 77067; 77080

== ENCOUNTER → 2024-12-16 | Outpatient (CLI) | payer MEDICARE, SELFPAY ==
--- NOTE | 2024-12-16 12:45 | BI_ITS ---
EXAM: DIAG MAMM W/CAD, UNILAT N/A CLINICAL HISTORY: F, Age 79 y/o , ABN MAMM. Inconclusive screening mammogram showed a nodular density in the superior outer aspect of the left breast. Evaluate. TECHNIQUE: Procedure Code: [id number] Modality: MG Procedure: DIAG MAMM W/CAD, UNILAT. COMPARISON: Prior exam(s) dated 12/11/2024 and 12/07/2023. FINDINGS: TISSUE DENSITY: There are scattered areas of fibroglandular density. Unilateral Right Breast Mammographic Findings: There is a focal nodular density in the lateral, middle 3rd aspect of the left breast which does persist on the spot compression CC view. It is not as well appreciated on the LM view or spot compression MLO view. On the chrissy images it appears to be located laterally somewhat near the 3 o'clock position. Further workup with ultrasound will be performed for further evaluation. BI/DIAG MAMM W/CAD, UNILAT IMPRESSION: There is a focal nodular density in the lateral, middle 3rd aspect of the left breast which does persist on the spot compression CC view. It is not as well appreciated on the LM view or spot compression MLO view. On the chrissy images it appears to be located laterally somewhat near the 3 o'clock position. Further workup with ultrasound will be performed for further evaluation. OVERALL FINAL ASSESSMENT BI-RADS 0: INCOMPLETE - NEED ADDITIONAL IMAGING EVALUATION. RECOMMENDATION: Ultrasound Recommended Additional Recommendation none A letter with findings and recommendations will be mailed to the patient. Reading Location: [id number]
--- NOTE | 2024-12-16 12:45 | US_ITS ---
PROCEDURE: BREAST LIMITED UNILATERAL N/A REASON FOR EXAM: F, Age 79 y/o , ABN MAMM. Inconclusive mammogram shows a left breast masslike density. Evaluate. COMPARISON: Mammogram dated 12/16/2024, 12/11/2024 and 12/07/2023. TECHNIQUE: Procedure Code: USBRSTLIMIT Modality: US Procedure: BREAST LIMITED UNILATERAL FINDINGS: There is a benign-appearing intramammary lymph node seen in the left breast at the 1 o'clock, 10 cm from the nipple position measuring 1.8 x 0.7 x 0.7 cm. This has a fatty hilum and the cortex is not abnormally thickened. It does not appear to correlate to the density seen on the mammogram however no other solid or cystic masses are seen in the left breast to correlate to the density seen on the mammogram. The technologist scanned the breast over 30 minutes. The density seen on the mammogram appears to represent a probable ridge of fibroglandular tissue on the ultrasound images submitted for review. Short-term six-month follow-up mammogram should be performed to document stability. US/Breast Limited Unilateral IMPRESSION: There is a benign-appearing intramammary lymph node seen in the left breast at the 1 o'clock, 10 cm from the nipple position measuring 1.8 x 0.7 x 0.7 cm. This has a fatty hilum and the cortex is not abno rmally thickened. It does not appear to correlate to the density seen on the mammogram however no other solid or cystic masses ar e seen in the left breast to correlate to the density seen on the mammogram. The technologist scanned the breast over 30 paramjit harvey. The density seen on the mammogram appears to represent a probable ridge of fibroglandular tissue on the ultrasound images tabares bmitted for review. Short-term six-month follow-up mammogram should be performed to document stability. BI-RADS 3: PROBABLY BENIGN. RECOMMENDATION: 6 Month Follow-up Reading Location: [id number]
--- OUTSIDE RECORDS SUMMARY | 2024-12-16 13:05 | XMS RPT_ITS | CCD ---
Author Organization [facility] Care Team Providers Care Business Practices Supervisor Name Role Phone Dr. Jenaro Loo Referring Provider Dr. Guicho Quezada Attending Provider Dr. Danny Jeronimo Primary Care Provider Dr. Danny Jeronimo Primary Care Provider Dr. Juaquin Kay Referring Provider Dr. Juaquin Kay Other Provider Dr. Charli Cano Attending Provider Dr. Danny Jeronimo Referring Provider Dr. Guicho Quezada Attending Provider DO Katie Singleton Primary Care Provider DO Katie Singleton Primary Care Provider DO Katie Singleton Referring Provider Arsen MADISON, GRICELDA Parra Attending Provider Dr. Juaquin Kay Referring Provider Dr. Juaquin Kay Other Provider MD Se Bryan Primary Care Provider Dr. Rachael Knutson Attending Provider Se Bryan MD Referring Provider Dr. Guicho Quezada MD Attending Provider Se Bryan MD Primary Care Provider [phone] Damien MD, Dr. Guicho Referring Provider Dilip VALLE, Dr. Pradhan Emergency Provider Dilip VALLE, Dr. Pradhan Attending Provider King LEONARD, Dr. Lindo Attending Physician Randi VALLE, Se Primary Care Physician [phone] Dilip VALLE, Dr. Pradhan Attending Physician Dilip VALLE, Dr. Pradhan Emergency Department Physician King LEONARD, Dr. Lindo Nurse Practitioner Simon DIRECTOR AGRICULTURAL SERVICES-C, Kristie Attending Physician Simon DIRECTOR AGRICULTURAL SERVICES-C, Kristie Referring Provider Simon DIRECTOR AGRICULTURAL SERVICES-C, Kristei Nurse Practitioner Hortencia VALLE, Dr. Wooten Attending Physician Randi, Chalon Referring Unavailable Damien, Guicho Attending Unavailable Randi, Chalon Primary Care Unavailable Randi, Chalon Primary Care Unavailable Damien, Guicho Referring Unavailable Damien, Guicho Attending Unavailable Randi, Chalon Primary Care Unavailable Simon, Kristie Referring Unavailable Simon, Kristie Attending Unavailable Randi, Chalon Primary Care Unavailable Je Burnett Attending Unavailable Randi, Chalon Primary Care Unavailable Randi, Chalon Referring Unavailable Randi, Chalon Attending Unavailable Randi, Chalon Primary Care Unavailable Damien, Guicho Referring Unavailable Damien, Guicho Attending Unavailable Randi, Chalon Primary Care Unavailable Randi, Chalon Referring Unavailable Damien, Guicho Attending Unavailable Randi, Chalon Primary Care Unavailable Randi, Chalon Referring Unavailable Damien, Guicho Attending Unavailable Randi, Chalon Primary Care Unavailable Randi, Chalon Referring Unavailable Je Burnett Attending Unavailable Randi, Chalon Primary Care Unavailable Damien, Guicho Referring Unavailable Damien, Guicho Attending Unavailable Randi, Chalon Primary Care Unavailable Damien, Guicho Consulting Unavailable Simon, Kristie Referring Unavailable Simon, Kristie Attending Unavailable Randi, Chalon Primary Care Unavailable Damien, Guicho Referring Unavailable Damien, Guicho Attending Unavailable Randi, Chalon Primary Care Unavailable Damien, Guicho Attending Unavailable Damien, Guicho Referring Unavailable Simon, Kristie Consulting Unavailable Randi, Chalon Primary Care Unavailable Lorne Cherry Attending Unavailable Medications Current Medications Medication Drug Class(es) Dates Sig (Normalized) Sig (Original) aspirin 81 mg chewable tablet (20 sources) Platelet Aggregation Inhibitor, Nonsteroidal Anti-inflammatory Drug Start: 08-17-2017 take 1 tablet by mouth once daily cholecalciferol 0.025 mg oral capsule (18 sources) Vitamin D Start: 08-26-2024 take 1 capsule by mouth once daily Start: 08-26-2024 End: 08-26-2024 take 1 capsule by mouth once daily Cholecalciferol (Vitamin D3) 25 mcg (1,000 unit) capsule Discontinued 25 ug PO daily August 26, 2024 12:00am August 26, 2024 2:04pm cinacalcet 30 mg oral tablet (6 sources) Calcium-sensing Receptor Agonist Start: 10-11-2024 take 1 tablet by mouth once daily ferrous sulfate 325 mg oral tablet (20 sources) Start: 10-23-2020 take 1 tablet by mouth once daily latanoprost 0.05 mg/ml ophthalmic solution (20 sources) Prostaglandin Analog Start: 10-23-2020 take 1 mL into the eye(s) once daily lisinopril 20 mg oral tablet (20 sources) Angiotensin Converting Enzyme Inhibitor Start: 10-23-2020 take 1 tablet by mouth once daily Multivitamin With Iron (11 sources) Start: 08-17-2017 take 1 tablet by mouth once daily Multivitamin With Iron Active 1 TABLET PO daily August 16, 2017 11:00pm Start: 08-17-2017 take 1 tablet by saul th once daily Multivitamin With Iron Active 1 TABLET PO daily August 17, 2017 12:00am omeprazole 20 mg delayed release oral tablet (20 sources) Proton Pump Inhibitor Start: 05-20-2017 take 1 tablet by mouth once daily simvastatin 20 mg oral tablet (20 sources) HMG-CoA Reductase Inhibitor Start: 10-23-2020 take 1 tablet by mouth once daily Vit C,M-Kr-Wfezn-Lutein-Zeax an (Preservision Areds-2) 250-90-40-1 mg Capsule (20 sources) Start: 08-18-2021 take 2 capsules by mouth twice daily Start: 08-18-2021 take 2 capsules by m outh twice daily Vit C,E-Nx-Kznlg-Lutein-Zeaxan (Preservision Areds-2) 250-90-40-1 mg Capsule Active 1 {tbl} PO TWICE A DAY August 18, 2021 12:00am Start: 08-18-2021 Vit C,E-Zn-Proposal Manager Writer kk-Annwiz-Ceqbcw (Preservision Areds-2) 250-90-40-1 mg Capsule Active 1 TABLET PO TWICE A DAY August 17, 2021 11:00pm Start: 08-18-2021 Vit C,E-Zn-Proposal Manager Writer jp-Bhyqbq-Njwbzr (Preservision Areds-2) 250-90-40-1 mg Capsule Active 1 TABLET PO TWICE A DAY August 18, 2021 12:00am Completed/Discontinued Medications Medication Drug Class(es) Dates Sig (Normalized) Sig (Original) [id number] 60 actuat albuterol 0.09 mg/actuat metered dose inhaler (20 sources) beta2-Adrenergic Agonist Start: 05-20-2017 End: 08-17-2017 Albuterol Sulfate 1 INHALER inhaler Discontinued 1 - 2 NMA INHALATION EVERY 4 HOURS NEEDED as needed for Wheezing 1 0 May 20, 2017 12:00am August 17, 2017 3:54pm Start: 05-20-2017 End: 08-17-2017 take 1 puff(s) by inhalation every four hours as needed Albuterol Sulfate Discontinued 1 - 2 PUFF INHALATION EVERY 4 HOURS NEEDED 1 May 20, 2017 12:00am August 17, 2017 3:54pm amoxicillin 500 mg oral capsule (10 sources) Penicillin-class Antibacterial Start: 04-11-2023 End: 04-21-2023 take 1 capsule by mouth three times daily Amoxicillin 500 mg capsule Discontinued 500 mg PO THREE TIMES A DAY 30 10 0 April 11, 2023 1:00am April 20, 2023 1:00am April 21, 2023 1:05am benzonatate 100 mg oral capsule (20 sources) Non-narcotic Antitussive Start: 05-20-2017 End: 08-17-2017 Benzonatate 100 MG capsule Discontinued 1 {tbl} PO THREE TIMES A DAY as needed for Cough May 20, 2017 12:00am August 17, 2017 3:54pm 1 ml denosumab 60 mg/ml prefilled syringe (20 sources) RANK Ligand Inhibitor Start: 02-19-2020 End: 10-20-2022 Denosumab (Prolia) 60 mg/mL syringe Discontinued 60 mg SC every 6 months 1 August 18, 2022 10:00am October 20, 2022 11:29am 3 ml liraglutide 6 mg/ml pen injector (20 sources) GLP-1 Receptor Agonist Start: 10-23-2020 End: 10-23-2020 Liraglutide (Weight Loss) (Saxenda) 3 mg/0.5 mL (18 mg/3 mL) pen injector Discontinued 3 mg SC DAILY 15 October 23, 2020 12:00am October 23, 2020 12:56pm Multivitamin With Iron tablet (9 sources) Start: 08-17-2017 End: 10-24-2024 Multivitamin With Iron tablet Discontinued 1 {tbl} PO daily August 17, 2017 12:00am October 24, 2024 3:26pm Start: 08-17-2017 Multivitamin W ith Iron tablet Active 1 {tbl} PO daily August 17, 2017 12:00am nystatin 100 unt/mg topical powder (20 sources) Polyene Antifungal Start: 08-17-2017 End: 04-11-2023 Nystatin 100,000 unit/gram powder Discontinued 1 NMA TOPICAL TWICE A DAY 30 August 17, 2017 12:00am April 11, 2023 2:54pm Start: 08-17-2017 End: 04-11-2023 Nystatin Discontinued 1 APPL IC TOPICAL TWICE A DAY August 17, 2017 12:00am April 11, 2023 2:54pm predniSONE 20 mg oral tablet (20 sources) Start: 05-20-2017 End: 08-17-2017 take 2 tablets by mouth once daily Prednisone 20 MG tablet Discontinued 40 mg PO DAILY 6 May 20, 2017 12:00am August 17, 2017 3:54pm Start: 05-20-2017 End: 08-17-2017 take 40 mg by mouth once daily Prednisone Discontinued 40 MG PO DAILY May 20, 2017 12:00am August 17, 2017 3:54pm vitamin b6 100 mg oral tablet (9 sources) Start: 10-20-2023 End: 08-26-2024 take 1 tablet by mouth once daily Pyridoxine (Vitamin B6) 100 mg tablet Discontinued 100 mg PO DAILY October 20, 2023 12:00am August 26, 2024 1:54pm Problems Active Problems Problem Classification Problem Date Documented Date Episodic/Chronic Chronic obstructive pulmonary disease and bronchiectasis (20 sources) Bronchitis; Translations: [Bronchitis, not specified as acute or chronic] 08-28-2017 Episodic Nutritional deficiencies (20 sources) Vitamin D deficiency; Translations: [Vitamin D deficiency, unspecified] Onset: 5 Chronic Osteoporosis (20 sources) Osteoporosis; Translations: [Age-related osteoporosis without current pathological fracture] Onset: 5 Chronic Other bone disease and musculoskeletal deformities (1 source) Other specified disorders of bone density and structure, unspecified site; Translations: [Other specified disorders of bone density and structure, unspecified site] Onset: 5 Episodic Other endocrine disorders (20 sources) Primary hyperparathyroidism; Translations: [Primary hyperparathyroidism] 10-31-2019 Chronic Comment on above: Patient is 79-year-o ld female diagnosed with primary hyperparathyroidism who is initially reluctant to undergo surgery, however, her calcium and PTH have continued to rise. She was initially placed on Prolia for protection of her skeletal mass but recently required addition of Cinacalcet after emergency evaluation for serum calcium of 13.7. Patient acknowledged at least a 5-year history with this diagnosis, however, in my independent review of her records there are elevated calciums dating back to 2011. I shared with Mrs. Bunn that I agreed with the diagnosis of primary hyperparathyroidism and went on to describe the surgical indications that include evidence of bone demineralization with her densitometry showing osteopenia and her serum calcium greater than 1 mg/dL over the range of normal. Interestingly I do not believe we can attribute patient's femur fracture to this disease process as densitometry obtained 1 year prior to her accident showed her density to be normal. Patient denies a history of nephrolithiasis and has never undergone renal imaging, but in the absence of symptoms and the presence of these other surgical indications I believe it is prudent to proceed without. I went on to discuss etiologies for primary hyperparathyroidism and the use of localization studies for identifying candidate adenomas. I shared that if Mrs. Bunn's particular case her results were particularly favorable and that her ultrasound and subsequent parathyroid scan: Localized to the left inferior position. I went on to discuss my strong suspicion that patient's 2.2 cm hypoechoic structure posterior to the left inferior pole of the thyroid actually represents her parathyroid adenoma and I would not recommend biopsying this structure out of concern for seeding the neck with parathyroid cells. With colocalization I stated we could offer a minimally invasive parathyroidectomy with intraoperative nerve and PTH monitoring. Hand drawings were used at this point to describe the implementation of these steps to minimize the risk to the recurrent laryngeal nerve and confirm cure, respectively. Patient confirmed understanding of this information and denied further questions. She stated that she is ready to undergo surgery to have the area of concern removed. Other endocrine disorders (3 sources) Primary hyperparathyroidism; Translations: [Primary hyperparathyroidism] Onset: 5 Chronic Other nutritional; endocrine; and metabolic disorders (20 sources) Hypophosphatemia; Translations: [Other disorders of phosphorus metabolism] 10-31-2019 Chronic Other nutritional; endocrine; and metabolic disorders (20 sources) Hypercalcemia; Translations: [Hypercalcemia] 10-31-2019 Chronic Other nutritional; endocrine; and metabolic disorders (1 source) Hypercalcemia; Translations: [Hypercalcemia] Onset: 5 Chronic Other screening for suspected conditions (not mental disorders or infectious disease) (20 sources) Mammography abnormal; Translations: [Other abnormal and inconclusive findings on diagnostic imaging of breast] Onset: 5 08-28-2017 Episodic Past or Other Problems Problem Classification Problem Date Documented Da te Episodic/Chronic Deficiency and other anemia (1 source) Iron deficiency anemia, unspecified; Translations: [Iron deficiency anemia, unspecified] Onset: 08-26-2024 Episodic Results Test Name Value Interpretation Reference Range Facility Dexa Bone Density Studyon Dexa Bone Density Study [facility] Services [address] [place] [id number] Dexa Bone Density Study MR#: [id number] Acct: [id number] Name: YAJAIRA BUNN Rep #: [id number] : 1945 F 79 From: Rodo lua MD PCP: Dr. Se Bryan MD Status: REG CLI Study: Dexa Bone Density Study Date of Exam: 12/11/24 Exam# [id number] Ordering Dr: Se Bryan MD PROCEDURE: DEXA BONE DENSITY STUDY 12/11/2024 REASON FOR EXAM: F, age 79 y/o . Postmenopausal. TECHNIQUE: Procedure Code: BDDBD Modality: DX Procedure: DEXA BONE DENSITY STUDY COMPARISON: October 26, 2021. FINDINGS: BMD and T-SCORES Lumbar spine: 1.104 g/cm2, T-score 0.5 Levels: L1 through L4 Change from prior: Improvement of 5.5%. Right femoral neck: 0.631 g/cm2, T-score -2.0 Femoral neck comparison data not recommended for monitoring change. Right total hip: 0.810 g/cm2, T-score -1.1 Change from prior: Loss of 0.1%. The World Health Organization has defined the following categories based on bone density: Normal bone density: T-score equal to or greater than -1.0 Osteopenia: T-score between -1.0 and -2.5 Osteoporosis: T-score equal to or less than -2.5 FRAX (or Comparable) Fracture Risk Assessment: 10 Year Probability of Fracture: Major Osteoporotic Fracture: 19% Hip Fracture: 4.6% (Note: FRAX is not to be reported in setting of normal range bone density, osteoporosis on DEXA, known history of osteoporosis, prior osteoporotic hip or vertebral fracture, or for any patient undergoing pharmacological treatment for bone loss.) The National Osteoporosis Foundation (NOF) recommends pharmacological treatment for patients with a FRAX 10-year risk of 3% or higher for a hip fracture, or 20% or higher for a major osteoporotic fracture, to prevent osteoporosis and reduce fracture risk. The patient does meet the pharmacological treatment recommendations for prevention of osteoporosis. BD/Dexa Bone Density Study IMPRESSION: OSTEOPENIA. Recommend follow-up as clinically warranted. Reading Location: [place] [address] CC: Dr. Se Bryan MD Criminology Teacher: Signed Normal [facility] SCRN MAMM (CAD)W/OMEGA BILATo n 12-11-2024 SCRN MAMM (CAD)W/OMEGA BILAT [facility] Imaging Services [address] [place] [id number] SCRN MAMM (CAD)W/OMEGA BILAT MR#: [id number] Acct: [id number] Name: YAJAIRA BUNN Rep #: [id number] : 1945 F 79 From: Rodo lua MD PCP: Dr. Se Bryan MD Status: REG CLI Study: SCRN MAMM (CAD)W/OMEGA BILAT Date of Exam: 11/27 07/21 Exam# [id number] Ordering Dr: Se Bryan MD EXAM: SCRN MAMM (CAD)W/OMEGA BILAT DATE: 12/11/2024 CLINICAL HISTORY: F, Age 79 y/o , SCREENING Grandmother with breast cancer. Prior right stereotactic breast biopsy. TECHNIQUE: Procedure Code: BISMWCADBTOM Modality: MG Procedure: SCRN MAMM (CAD)W/OMEGA BILAT COMPARISON: Prior exam(s) dated December 07, 2023.. FINDINGS: TISSUE DENSITY: There are scattered areas of fibroglandular density. Bilateral Breast Mammographic Findings: There is a questionable 7.5 mm nodular density in the upper slightly lateral aspect of the left breast. The patient will be recalled for additional views of the left breast and possible ultrasound. Stable tissue clip marker in the upper lateral aspect of the left breast. BI/SCRN MAMM (CAD)W/OMEGA BILAT IMPRESSION: Questionable 7.5 mm nodular density in the upper slightly lateral aspect of the left breast as described best seen on the craniocaudad view. OVERALL FINAL ASSESSMENT BI-RADS 0: INCOMPLETE - NEED ADDITIONAL IMAGING EVALUATION. RECOMMENDATION: Additional Views obtained/call backs Additional Recommendation none A letter with findings and recommendations will be mailed to the patient. Reading Location: [place] [address] CC: Dr. Se Bryan MD Criminology Teacher: Signed Normal [facility] Basic Metabolic Profile (BMP )on 12-03-2024 BUN/CRE 17.9 RATIO Normal 10-20 [facility] Comment on above: Performed By: #### L 500.2500 #### [facility] [address] [facility] [facility] [place], [place], [id number] Calcium [Mass/Vol] 10.4 mg/dL Normal 7.6-11.0 [facility] Comment on above: Performed By: #### L 500.2500 #### [facility] [address] [place], [address] Chloride [Moles/Vol] 106 mmol/L Normal 98-108 [facility] Comment on above: Performed By: #### L 500.2500 #### [facility] [address] [place], [address] CO2 [Moles/Vol] 21.3 mmol/L Normal 21.0-32.0 [facility] Comment on above: Performed By: #### L 500.2500 #### [facility] [address] [place], [address] Creatinine [Mass/Vol] 1.05 mg/dL Normal 0.70-1.20 [facility] Comment on above: Performed By: #### L 500.2500 #### [facility] [address] [place], [address] GAP 10 Normal 5-15 [facility] Comment on above: Performed By: #### L 500.2500 #### [facility] [address] [place], [address] GFR/1.73 sq M.predicted among non-blacks MDRD (S/P/Bld) [Vol rate/Area] 55 mL/min/{1.73_m2} Low >60 [facility] Comment on above: Result Comment: mL/m in/1.73m2 CKD-EPI Creatinine Equation (2020) Performed By: #### L 500.2500 #### [facility] [address] [place], [address] Glucose [Mass/Vol] 88 mg/dL Normal 70-99 [facility] Comment on above: Performed By: #### L 500.2500 #### [facility] [address] [place], [address] Potassium [Moles/Vol] 4.5 mmol/L Normal 3.3-5.1 [facility] Comment on above: Performed By: #### L 500.2500 #### [facility] [address] [place], [address] Sodium [Moles/Vol] 137 mmol/L Normal 133-145 [facility] Comment on above: Performed By: #### L 500.2500 #### [facility] [address] [place], [place], [address] Urea nitrogen [Mass/Vol] 19 mg/dL Normal 4-19 [facility] Comment on above: Performed By: #### L 500.2500 #### [facility] [address] [place], [address] Surgery Visit Reporton 11-20 Surgery Visit Report [facility] [address] [place] [address] OFFICE VISIT Date of Service: 11/20/24 MR#: [id number] Acct: [id number] Name: YAJAIRA BUNN Rep #: [id number] : 1945 Provider: Dr. Je bar MD Age/Sex: 79/F Location: [facility] Status: Signed Intake Vital Signs 10/24/24 15:21 11/20/24 12:58 Height 5 ft 5 ft Weight: 171 lb 172 lb BMI 33.4 33.5 BP 151/76 H 170/90 H Blood Pressure Location Lt brachial Rt brachial Position Sitting Sitting Respiration 18 Pulse 82 72 Pulse Source Monitor Monitor Temp 97.6 F L Temp Source Temporal Pulse Oximetry (%) 98 99 Oxygen Delivery Method room air room air Intake Visit Reasons: HYPERPARATHYROIDISM Chief Complaint: hyperparathyroidism Is patient in pain?: No Allergies No Known Allergies Allergy (Verified 11/20/24 12:59) Medications ???Medication ???Instructions ???Recorded ???Confirmed ???Type omeprazole magnesium 20 mg 20 mg PO DAILY 05/20/17 11/20/24 H istory tablet,delayed release aspirin 81 mg chewable tablet 81 mg PO QDAY 08/17/17 11/20/24 Hi story ferrous sulfate 325 mg (65 mg 325 mg PO DAILY 10/23/20 11/20/24 History iron) tablet (FeroSul) latanoprost 0.005 % eye drops 1 ml ophthalmic (eye) DAILY 11/20/24 History lisinopril 20 mg tablet 20 mg PO DAILY 10/23/20 11/20/24 H istory simvastatin 20 mg tablet 20 mg PO DAILY 10/23/20 11/20/24 H istory vit C 250 mg-vit E 90 mg-zinc 40 1 tab PO BID 08/18/21 11/20/24 His tory mg-copper 1 zv-xqfqix-wkcmwo capsule (PreserVision AREDS-2) denosumab 60 mg/mL subcutaneous 60 mg subcut [id number] #1 mL 11/20/24 Rx syringe (Prolia) cholecalciferol (vitamin D3) 25 50 mcg PO QDAY 08/26/24 11/20/24 H istory mcg (1,000 unit) capsule cinacalcet 30 mg tablet 30 mg PO QDAY #30 tabs 10/11/24 Rx Have you fallen in the past year?: No PFSH Medical History Vitamin D deficiency Abnormal mammogram of right breast Heart murmur Acid reflux Arthritis HTN (hypertension) Surgical History H/O colonoscopy Ankle fracture History of hip surgery Family History Grandmother Breast cancer Social History household members: spouse Smoking Status: Former smoker alcohol intake: current alcohol intake frequency: holidays/special occasions only HPI HPI HPI: The patient is a 79-year-old female with a history of hyperparathyroidism, presenting for evaluation and management. The patient reports a history of hyperparathyroidism for approximately 5 years, initially identified by Dr. Jenaro Conroy at [facility] due to elevated calcium levels exceeding 10 mg/dL. She was subsequently referred to Dr. Quezada for further evaluation and management. Retrospective review of calcium levels reveals hypercalcemia dating back to 2011, with a sustained upward trend since 2017. The patient denies any symptoms associated with hypercalcemia and has not required medication to manage calcium levels until recently. Approximately one month ago, she was prescribed cinacalcet by Dr. Quezada following a serum calcium level of 13.7 mg/dL, which later decreased to 12 mg/dL. She denies any history of dehydration during this period, noting consistent hydration with regular water intake. The patient has a history of osteopenia, confirmed by DEXA scans in 2019 and 2021. She denies a diagnosis of osteoporosis. In June 2010, she sustained a femur fracture, which failed to heal after 2-3 surgeries, necessitating a hip replacement in 2011. She denies any other fractures since high school, when she fractured her ankle in a fall from a horse. She has been receiving Prolia injections since 2021 for hypercalcemia management and has not undergone a DEXA scan since initiating this treatment. She denies any history of nephrolithiasis. The patient denies any symptoms suggestive of thyroid pathology, including dysphagia, dry cough, or changes in voice. She reports well-controlled hypertension and gastroesophageal reflux disease (GERD), managed with a stable dose of omeprazole. She denies any difficulty concentrating, dental issues, or nail abnormalities. She also denies any muscle weakness, particularly in large muscle groups, and reports no issues with constipation, maintaining a high-fiber diet. Her dietary calcium intake is minimal, with occasional consumption of ice cream, cheese, and yogurt. Patient's current labs are calcium: 11 mg/dL (11/15/2024) range of 10.5-13.7 extending from 2019- present, Vitamin D: 64 ng/mL (08/27/2024), (more content not included)... Normal [facility] Absolute lymphocyte countOrd ered By: Se Bryan on 11-15-2024 Lymphocytes Auto (Unsp spec) [#/Vol] 1.29 10*3/uL 0.83-4.51 [facility] Absolute neutrophil countOrd ered By: Se Bryan on 11-15-2024 Neutrophils (Bld) [#/Vol] 5.0 10*3/uL 2.0-7.7 [facility] Anion gap in Serum or Plasma Ordered By: Se Bryan on 11-15-2024 Anion gap [Moles/Vol] 12 mmol/L 5-15 [facility] Automated lymphocyte count a s percentage of total leukocytesOrdered By: Se Stricklandke on 11-15-2024 Lymphocytes/100 WBC Auto (Unsp spec) 17.3 % Low 19-41 [facility] BUN/creatinine ratioOrdered By: Paigemary Randi on 11-15-2024 Urea nitrogen/Creatinine [Mass ratio] 14.1 mg/mg 10- [facility] Basic Metabolic Profile (BMP )on 11-15-2024 BUN/CRE 13.6 RATIO Normal - [facility] Comment on above: Performed By: #### L 500.4050, L100.0100 #### [facility] [address] [place], [address] Calcium [Mass/Vol] 10.7 mg/dL Normal 7.6-11.0 [facility] Comment on above: Performed By: #### L 500.4050, L100.0100 #### [facility] [address] [place], [address] Chloride [Moles/Vol] 106 mmol/L Normal 98-108 [facility] Comment on above: Performed By: #### L 500.4050, L100.0100 #### [facility] [address] [place], [address] CO2 [Moles/Vol] 20.0 mmol/L Low 21.0-32.0 [facility] Comment on above: Performed By: #### L 500.4050, L100.0100 #### [facility] [address] [place], [address] Creatinine [Mass/Vol] 1.05 mg/dL Normal 0.70-1.20 [facility] Comment on above: Performed By: #### L 500.4050, L100.0100 #### [facility] [address] [place], [address] GAP 12 Normal 5-15 [facility] Comment on above: Performed By: #### L 500.4050, L100.0100 #### [facility] [address] [place], [address] GFR/1.73 sq M.predicted among non-blacks MDRD (S/P/Bld) [Vol rate/Area] 55 mL/min/{1.73_m2} Low >60 [facility] Comment on above: Result Comment: mL/m in/1.73m2 CKD-EPI Creatinine Equation (2020) Performed By: #### L 500.4050, L100.0100 #### [facility] [address] [place], [address] Glucose [Mass/Vol] 116 mg/dL High 70-99 [facility] Comment on above: Performed By: #### L 500.4050, L100.0100 #### [facility] [address] [place], [address] Potassium [Moles/Vol] 4.2 mmol/L Normal 3.3-5.1 [facility] Comment on above: Performed By: #### L 500.4050, L100.0100 #### [facility] [address] [place], [address] Sodium [Moles/Vol] 138 mmol/L Normal 133-145 [facility] Comment on above: Performed By: #### L 500.4050, L100.0100 #### [facility] [address] [place], [address] Urea nitrogen [Mass/Vol] 14 mg/dL Normal 4-19 [facility] Comment on above: Performed By: #### L 500.4050, L100.0100 #### [facility] [address] [place], [address] Basophil percentageOrdered B y: Se Bryan on 11-15-2024 Basophils/100 WBC (Bld) 0.5 % 0-1 [facility] Bilirubin, totalOrdered By: Se Bryan on 11-15-2024 Bilirubin [Mass/Vol] 0.28 mg/dL 0.00-1.30 [facility] CBC W/Diff, Automatedon 10-28 Absolute Lymph 1.29 X10 3/uL Normal 0.83-4.51 [facility] Comment on above: Order Comment: Order Date: 07/05/24Order Info: [id number] - CBCD Performed By: #### L 500.4050, L100.0100 #### [facility] [address] [place], [address] Absolute Neut 5.0 X10 3/uL Normal 2.0-7.7 [facility] Comment on above: Order Comment: Order Date: 07/05/24Order Info: [id number] - CBCD Performed By: #### L 500.4050, L100.0100 #### [facility] [address] [place], [address] Basophils/100 WBC (Bld) 0.5 % Normal 0-1 [facility] Comment on above: Order Comment: Order Date: 07/05/24Order Info: [id number] - CBCD Performed By: #### L 500.4050, L100.0100 #### [facility] [address] [place], [address] Eosinophils/100 WBC (Bld) 3.6 % Normal 0-5 [facility] Comment on above: Order Comment: Order Date: 07/05/24Order Info: [id number] - CBCD Performed By: #### L 500.4050, L100.0100 #### [facility] [address] [place], [address] Erythrocyte distribution width (RBC) [Ratio] 12.3 % Normal 11.6-14.6 [facility] Comment on above: Order Comment: Order Date: 07/05/24Order Info: [id number] - CBCD Performed By: #### L 500.4050, L100.0100 #### [facility] [address] [place], [address] Hematocrit (Bld) [Volume fraction] 32.5 % Low 37-47 [facility] Comment on above: Order Comment: Order Date: 07/05/24Order Info: [id number] - CBCD Performed By: #### L 500.4050, L100.0100 #### [facility] [address] [place], [address] Hemoglobin (Bld) [Mass/Vol] 11.3 g/dL Low 12.0-15.0 [facility] Comment on above: Order Comment: Order Date: 07/05/24Order Info: [id number]- - CBCD Performed By: #### L 500.4050, L100.0100 #### [facility] [address] [place], [address] IG% 0.400 Normal 0.0-0.9 [facility] Comment on above: Order Comment: Order Date: 07/05/24Order Info: [id number]- - CBCD Result Comment: IG% - Immature Granulocytes (promyelocytes, myelocytes and metamyelocytes) > 1% indicates that a LEFT SHIFT is Present. Performed By: #### L 500.4050, L100.0100 #### [facility] [address] [place], [address] Lymphocytes/100 WBC (Bld) 17.3 % Low 19-41 [facility] Comment on above: Order Comment: Order Date: 07/05/24Order Info: [id number]- - CBCD Performed By: #### L 500.4050, L100.0100 #### [facility] [address] [place], [address] MCH (RBC) [Entitic mass] 32.2 pg High 27.0-32.0 [facility] Comment on above: Order Comment: Order Date: 07/05/24Order Info: [id number] - CBCD Performed By: #### L 500.4050, L100.0100 #### [facility] [address] [place], [address] MCHC (RBC) [Mass/Vol] 34.8 g/dL Normal 32-36 [facility] Comment on above: Order Comment: Order Date: 07/05/24Order Info: [id number] - CBCD Performed By: #### L 500.4050, L100.0100 #### [facility] [address] [place], [address] MCV (RBC) [Entitic vol] 92.6 fL Normal 81-99 [facility] Comment on above: Order Comment: Order Date: 07/05/24Order Info: [id number] - CBCD Performed By: #### L 500.4050, L100.0100 #### [facility] [address] [place], [address] Monocytes/100 WBC (Bld) 11.0 % High 0-10 [facility] Comment on above: Order Comment: Order Date: 07/05/24Order Info: [id number] - CBCD Performed By: #### L 500.4050, L100.0100 #### [facility] [address] [place], [address] Neutrophils/100 WBC (Bld) 67.2 % Normal 47-70 [facility] Comment on above: Order Comment: Order Date: 07/05/24Order Info: [id number] - CBCD Performed By: #### L 500.4050, L100.0100 #### [facility] [address] [place], [address] Nucleated RBC (Bld) [#/Vol] 0 10*3/uL Normal 0-5 [facility] Comment on above: Order Comment: Order Date: 07/05/24Order Info: [id number] - CBCD Performed By: #### L 500.4050, L100.0100 #### [facility] [address] [place], [address] Platelet mean volume (Bld) [Entitic vol] 10.0 fL Normal 6.2-12.0 [facility] Comment on above: Order Comment: Order Date: 07/05/24Order Info: [id number] - CBCD Performed By: #### L 500.4050, L100.0100 #### [facility] [address] [place], [address] Platelets (Bld) [#/Vol] 256 10*3/uL Normal 150-450 [facility] Comment on above: Order Comment: Order Date: 07/05/24Order Info: [id number] - CBCD Performed By: #### L 500.4050, L100.0100 #### [facility] [address] [place], [address] RBC (Bld) [#/Vol] 3.51 10*6/uL Low 4.2-5.4 [facility] Comment on above: Order Comment: Order Date: 07/05/24Order Info: [id number] - CBCD Performed By: #### L 500.4050, L100.0100 #### [facility] [address] [place], [address] RDW SD 41.8 fl Normal 35.1-43.9 [facility] Comment on above: Order Comment: Order Date: 07/05/24Order Info: [id number] - CBCD Performed By: #### L 500.4050, L100.0100 #### [facility] [address] [place], [address] WBC (Bld) [#/Vol] 7.5 10*3/uL Normal 4.4-11.0 [facility] Comment on above: Order Comment: Order Date: 07/05/24Order Info: [id number] - CBCD Performed By: #### L 500.4050, L100.0100 #### [facility] [address] [place], [address] Calculated very low density lipoprotein (VLDL) cholesterol measurementOrdered By: Paigemary Randi on 11-15-2024 Calculated very low density lipoprotein (VLDL) cholesterol measurement 33 mg/dL 5-40 [facility] Carbon dioxide, total [Moles /volume] in Central venous bloodOrdered By: Paigemary Stricklandke on 11-15-2024 CO2 [Moles/Vol] 20.1 mmol/L Low 21.0-32.0 [facility] Chloride assayOrdered By: Ruth Bryan on 11-15-2024 Chloride [Moles/Vol] 106 mmol/L 98-108 [facility] Comprehensive Metabolic Prof ilon 11-15-2024 Albumin [Mass/Vol] 4.3 g/dL Normal 3.4-4.8 [facility] Comment on above: Order Comment: Order Date: 07/05/24Order Info: [id number] - CMPOrder Info: [id number] - LIPIDOrder Info: [id number] - TSH Performed By: #### L 500.4050, L100.0100 #### [facility] [address] [place], [address] Albumin/Globulin [Mass ratio] 1.7 {ratio} Normal 0.9-2.4 [facility] Comment on above: Order Comment: Order Date: 07/05/24Order Info: [id number] - CMPOrder Info: [id number] - LIPIDOrder Info: [id number] - TSH Performed By: #### L 500.4050, L100.0100 #### [facility] [address] [place], [address] ALK PHOS 55 U/L Normal 35-104 [facility] Comment on above: Order Comment: Order Date: 07/05/24Order Info: [id number] - CMPOrder Info: [id number] - LIPIDOrder Info: [id number] - TSH Performed By: #### L 500.4050, L100.0100 #### [facility] [address] [place], [address] ALT [Catalytic activity/Vol] 17 U/L Normal <=34 [facility] Comment on above: Order Comment: Order Date: 07/05/24Order Info: [id number] - CMPOrder Info: [id number] - LIPIDOrder Info: [id number] - TSH Performed By: #### L 500.4050, L100.0100 #### [facility] [address] [place], [address] AST [Catalytic activity/Vol] 22 U/L Normal <=31 [facility] Comment on above: Order Comment: Order Date: 07/05/24Order Info: [id number] - CMPOrder Info: [id number] - LIPIDOrder Info: [id number] - TSH Performed By: #### L 500.4050, L100.0100 #### [facility] [address] [place], [address] Bilirubin [Mass/Vol] 0.28 mg/dL Normal 0.00-1.30 [facility] Comment on above: Order Comment: Order Date: 07/05/24Order Info: [id number] - CMPOrder Info: [id number] - LIPIDOrder Info: [id number] - TSH Performed By: #### L 500.4050, L100.0100 #### [facility] [address] [place], [address] BUN/CRE 14.1 RATIO Normal 10-20 [facility] Comment on above: Order Comment: Order Date: 07/05/24Order Info: [id number] - CMPOrder Info: [id number] - LIPIDOrder Info: [id number] - TSH Performed By: #### L 500.4050, L100.0100 #### [facility] [address] [place], [address] Calcium [Mass/Vol] 11.0 mg/dL Normal 7.6-11.0 [facility] Comment on above: Order Comment: Order Date: 07/05/24Order Info: [id number] - CMPOrder Info: [id number] - LIPIDOrder Info: 6-3 - TSH Performed By: #### L 500.4050, L100.0100 #### [facility] [address] [place], [address] Chloride [Moles/Vol] 106 mmol/L Normal 98-108 [facility] Comment on above: Order Comment: Order Date: 07/05/24Order Info: 86-1 - CMPOrder Info: [id number] - LIPIDOrder Info: [id number] - TSH Performed By: #### L 500.4050, L100.0100 #### [facility] [address] [place], [address] CO2 [Moles/Vol] 20.1 mmol/L Low 21.0-32.0 [facility] Comment on above: Order Comment: Order Date: 07/05/24Order Info: 07- - CMPOrder Info: - LIPIDOrder Info: [id number] - TSH Performed By: #### L 500.4050, L100.0100 #### [facility] [address] [place], [address] Creatinine [Mass/Vol] 1.02 mg/dL Normal 0.70-1.20 [facility] Comment on above: Order Comment: Order Date: 07/05/24Order Info: [id number] - CMPOrder Info: [id number] - LIPIDOrder Info: [id number] - TSH Performed By: #### L 500.4050, L100.0100 #### [facility] [address] [place], [address] GAP 12 Normal 5-15 [facility] Comment on above: Order Comment: Order Date: 07/05/24Order Info: [id number] - CMPOrder Info: [id number] - LIPIDOrder Info: 6-3 - TSH Performed By: #### L 500.4050, L100.0100 #### [facility] [address] [place], [address] GFR/1.73 sq M.predicted among non-blacks MDRD (S/P/Bld) [Vol rate/Area] 57 mL/min/{1.73_m2} Low >60 [facility] Comment on above: Order Comment: Order Date: 07/05/24Order Info: 86-1 - CMPOrder Info: [id number] - LIPIDOrder Info: [id number] - TSH Result Comment: mL/m in/1.73m2 CKD-EPI Creatinine Equation (2020) Performed By: #### L 500.4050, L100.0100 #### [facility] [address] [place], [address] Globulin (S) [Mass/Vol] 2.5 g/dL Normal 2.2-4.2 [facility] Comment on above: Order Comment: Order Date: 07/05/24Order Info: [id number] - CMPOrder Info: [id number] - LIPIDOrder Info: 6-3 - TSH Performed By: #### L 500.4050, L100.0100 #### [facility] [address] [place], [address] Glucose [Mass/Vol] 87 mg/dL Normal 70-99 [facility] Comment on above: Order Comment: Order Date: 07/05/24Order Info: [id number] - CMPOrder Info: [id number] - LIPIDOrder Info: [id number] - TSH Performed By: #### L 500.4050, L100.0100 #### [facility] [address] [place], [address] Potassium [Moles/Vol] 4.1 mmol/L Normal 3.3-5.1 [facility] Comment on above: Order Comment: Order Date: 07/05/24Order Info: 86-1 - CMPOrder Info: [id number] - LIPIDOrder Info: [id number] - TSH Performed By: #### L 500.4050, L100.0100 #### [facility] [address] [place], [address] Sodium [Moles/Vol] 138 mmol/L Normal 133-145 [facility] Comment on above: Order Comment: Order Date: 07/05/24Order Info: [id number] - CMPOrder Info: [id number] - LIPIDOrder Info: [id number] - TSH Performed By: #### L 500.4050, L100.0100 #### [facility] [address] [place], [address] T PROT 6.8 g/dL Normal 5.9-8.4 [facility] Comment on above: Order Comment: Order Date: 07/05/24Order Info: [id number] - CMPOrder Info: [id number] - LIPIDOrder Info: [id number] - TSH Performed By: #### L 500.4050, L100.0100 #### [facility] [address] [place], [address] Urea nitrogen [Mass/Vol] 14 mg/dL Normal 4-19 [facility] Comment on above: Order Comment: Order Date: 07/05/24Order Info: [id number] - CMPOrder Info: [id number] - LIPIDOrder Info: [id number] - TSH Performed By: #### L 500.4050, L100.0100 #### [facility] [address] [place], [address] Eosinophil percentageOrdered By: Se Bryan on 11-15-2024 Eosinophils/100 WBC (Bld) 3.6 % 0-5 [facility] Erythrocyte distribution wid th ratioOrdered By: Se Bryan on 11-15-2024 Erythrocyte distribution width (RBC) [Ratio] 12.3 % 11.6-14.6 [facility] Erythrocyte distribution wid th standard deviationOrdered By: Se Bryan on 11-15-2024 Erythrocyte distribution width (RBC) [Ratio] 41.8 fl 35.1-43.9 [facility] Glomerular filtration rate ( GFR) estimation/1.73 sq m using serum, plasma, or whole bOrdered By: Se Bryan on 11-15-2024 GFR/1.73 sq M.predicted among non-blacks MDRD (S/P/Bld) [Vol rate/Area] 57 mL/min/{1.73_m2} Low >60 [facility] Comment on above: mL/min/1.73m2 CKD-EP I Creatinine Equation (2020) Hematocrit Auto (Bld) [Volum e fraction]Ordered By: Paigemary Bryan on 11-15-2024 Hematocrit (Bld) [Volume fraction] 32.5 % Low 37-47 [facility] Hemoglobin measurementOrdere d By: Se Randi on 11-15-2024 Hemoglobin (Bld) [Mass/Vol] 11.3 g/dL Low 12.0-15.0 [facility] Immature granulocytes/100 WB C Auto (Bld)Ordered By: Paigemary Bryan on 11-15-2024 Immature granulocytes/100 WBC (Bld) 0.400 % 0.0-0.9 [facility] Comment on above: IG% - Immature Granu locytes (promyelocytes, myelocytes and metamyelocytes) > 1% indicates that a LEFT SHIFT is Present. LDL calc ser/plasOrdered By: Paigemary Bryan on 11-15-2024 Cholesterol in LDL [Mass/Vol] 79 mg/dL [facility] Comment on above: Mehgkyclhm=276-536 m g/dL & Higher Mcal=583 mg/dL or greaterFriedwald Equation for LDL-C Laboratory - Chemistry and C hemistry - challengeOrdered By: Paigemary Bryan on 11-15-2024 AST [Catalytic activity/Vol] 22 U/L <32 [facility] Lipid Profileon 11-15-2024 CHOL:HDL 2.56 Normal [facility] Comment on above: Order Comment: Order Date: 07/05/24Order Info: [id number] - CMPOrder Info: [id number] - LIPIDOrder Info: [id number] - TSH Performed By: #### L 500.4050, L100.0100 #### [facility] [address] [place], [address] Cholesterol [Mass/Vol] 184 mg/dL Normal <=[address] [facility] Comment on above: Order Comment: Order Date: 07/05/24Order Info: [id number] - CMPOrder Info: [id number] - LIPIDOrder Info: [id number] - TSH Result Comment: Chol esterol level, Desirable <200 mg/dL Borderline high cholesterol 200-239 mg/dL High cholesterol >=240 mg/dL Recommendations of the NCEP Adult Treatment Panel for the following risk-cutoff thresholds for the [place] population. Performed By: #### L 500.4050, L100.0100 #### [facility] [address] [place], [address] Cholesterol in HDL [Mass/Vol] 72 mg/dL Normal [facility] Comment on above: Order Comment: Order Date: 07/05/24Order Info: [id number] - CMPOrder Info: [id number] - LIPIDOrder Info: [id number] - TSH Result Comment: [place] on[place] Cholesterol Education Program (NCEP) guidelines: <40 mg/dL: Low HDL-cholesterol (major risk factor for CHD) >= 60 mg/dL: High HDL-cholesterol (negative risk factor for CHD) HDL-cholesterol is affected by a number of factors, e.g. smoking, exercise, hormones, sex and age. Performed By: #### L 500.4050, L100.0100 #### [facility] [address] [place], [place], [id number] (709) Cholesterol in LDL [Mass/Vol] 79 mg/dL Normal [facility] Comment on above: Order Comment: Order Date: 07/05/24Order Info: [id number] - CMPOrder Info: [id number] - LIPIDOrder Info: [id number] - TSH Result Comment: Bord puvadu=315-407 mg/dL Higher Tcjs=580 mg/dL or greater Friedwald Equation for LDL-C Performed By: #### L 500.4050, L100.0100 #### [facility] [address] [place], [place], [address] (758) Cholesterol in VLDL [Mass/Vol] 33 mg/dL Normal 5-40 [facility] Comment on above: Order Comment: Order Date: 07/05/24Order Info: [id number] - CMPOrder Info: [id number] - LIPIDOrder Info: [id number] - TSH Performed By: #### L 500.4050, L100.0100 #### [facility] [address] [place], [place], [address] Triglyceride [Mass/Vol] 163 mg/dL Normal [facility] Comment on above: Order Comment: Order Date: 07/05/24Order Info: [id number] - CMPOrder Info: [id number] - LIPIDOrder Info: [id number] - TSH Result Comment: The drugs N-Acetylcysteine and Metamizole may falsely depress this assay. Normal range: <150 mg/dL Borderline High: 150-199 mg/dL High: 200-499 mg/dL Very High: >500 mg/dL Performed By: #### L 500.4050, L100.0100 #### [facility] [address] [place], [place], [address] MCV (mean corpuscular volume ) determinationOrdered By: Se Bryan on 11-15-2024 MCV (RBC) [Entitic vol] 92.6 fL 81-99 [facility] Mean corpuscular hemoglobin (MCH) determinationOrdered By: Se Bryan on 11-15-2024 MCH (RBC) [Entitic mass] 32.2 pg High 27.0-32.0 [facility] Mean corpuscular hemoglobin concentration (MCHC) determinationOrdered By: Se Bryan on 11-15-2024 MCHC (RBC) [Mass/Vol] 34.8 g/dL 32-36 [facility] Mean platelet volume determi nationOrdered By: Se Bryan on 11-15-2024 Platelet mean volume (Bld) [Entitic vol] 10.0 fL 6.2-12.0 [facility] Monocyte percentageOrdered B y: Se Bryan on 11-15-2024 Monocytes/100 WBC (Bld) 11.0 % High 0-10 [facility] Neutrophil percentageOrdered By: Se Bryan on 11-15-2024 Neutrophils/100 WBC (Bld) 67.2 % 47-70 [facility] Nucleated red blood cell per centageOrdered By: Se Bryan on 11-15-2024 Nucleated RBC/100 WBC (Bld) [Ratio] 0 % 0-5 [facility] PTHINon 11-15-2024 PTH 249 pg/mL High 11-61 [facility] Comment on above: Performed By: #### L 500.2500 #### [facility] [address] [place], [address] Platelet countOrdered By: Ruth Bryan on 11-15-2024 Platelets (Bld) [#/Vol] 256 10*3/uL 150-450 [facility] Potassium measurement (mass/ volume)Ordered By: Se Bryan on 11-15-2024 Potassium (Unsp spec) [Mass/Vol] 4.1 mmol/L 3.3-5.1 [facility] RBC Auto (Bld) [#/Vol]Ordere d By: Se Bryan on 11-15-2024 RBC (Bld) [#/Vol] 3.51 10*6/uL Low 4.2-5.4 [facility] Screening total cholesterol/ high density lipoprotein (HDL) cholesterol ratioOrdered By: Se Bryan on 11-15-2024 Cholesterol.total/Mirian sterol in HDL [Mass ratio] 2.56 {ratio} [facility] Serum creatinine measurement (mass/volume)Ordered By: Se Bryan on 11-15-2024 Creatinine [Mass/Vol] 1.02 mg/dL 0.70-1.20 [facility] Serum globulin measurementOr dered By: Se Bryan on 11-15-2024 Globulin (S) [Mass/Vol] 2.5 g/dL 2.2-4.2 [facility] Serum glucose measurement (m ass/volume)Ordered By: Se Bryan on 11-15-2024 Glucose [Mass/Vol] 87 mg/dL 70-99 [facility] Serum or plasma alanine maciel otransferase (ALT) measurementOrdered By: Se Bryan on 11-15-2024 ALT [Catalytic activity/Vol] 17 U/L <35 [facility] Serum or plasma albumin rodriguez urement (mass/volume)Ordered By: Se Bryan on 11-15-2024 Albumin [Mass/Vol] 4.3 g/dL 3.4-4.8 [facility] Serum or plasma albumin/glob ulin mass ratioOrdered By: Se Bryan on 11-15-2024 Albumin/Globulin [Mass ratio] 1.7 {ratio} 0.9-2.4 [facility] Serum or plasma alkaline ana sphatase measurementOrdered By: Se Bryan on 11-15-2024 ALP [Catalytic activity/Vol] 55 U/L 35-104 [facility] Serum or plasma calcium rodriguez urement (mass/volume)Ordered By: Se Bryan on 11-15-2024 Calcium [Mass/Vol] 11.0 mg/dL 7.6-11.0 [facility] Serum or plasma cholesterol in HDL measurement (mass/volume)Ordered By: Se Bryan on 11-15-2024 Cholesterol in HDL [Mass/Vol] 72 mg/dL >40 [facility] Comment on above: National Cholesterol Education Program (NCEP) guidelines:<40 mg/dL: Low HDL-cholesterol (major risk factor for CHD)>= 60 mg/dL: High HDL-cholesterol (negative risk factor for CHD)HDL-cholesterol is affected by a number of factors, e.g. smoking, exercise, hormones, sex and age. Serum or plasma cholesterol measurement (mass/volume)Ordered By: Se Bryan on 11-15-2024 Cholesterol [Mass/Vol] 184 mg/dL <[address] [facility] Comment on above: Cholesterol level, D esirable <200 mg/dLBorderline high cholesterol 200-239 mg/dLHigh cholesterol >=240 mg/dLRecommendations of the NCEP Adult Treatment Panel for the following risk-cutoff thresholds for the [place] population. Serum or plasma urea nitroge n measurement (mass/volume)Ordered By: Se Bryan on 11-15-2024 Urea nitrogen [Mass/Vol] 14 mg/dL 4-19 [facility] Sodium levelOrdered By: Paige Bryan on 11-15-2024 Sodium [Moles/Vol] 138 mmol/L 133-145 [facility] TSH DL <= 0.005 mIU/L QnOrde red By: Se Bryan on 11-15-2024 TSH Qn 1.730 uIU/mL 0.300-4.200 [facility] Thyroid Stim Hormone (TSH)on 11-15-2024 TSH 1.730 uIU/mL Normal 0.300-4.200 [facility] Comment on above: Order Comment: Order Date: 07/05/24Order Info: [id number] - CMPOrder Info: [id number] - LIPIDOrder Info: [id number] - TSH Performed By: #### L 500.4050, L100.0100 #### [facility] [address] [place], [place], [address] Total proteinOrdered By: Amelia Bryan on 11-15-2024 Protein [Mass/Vol] 6.8 g/dL 5.9-8.4 [facility] Triglycerides measurementOrd ered By: Se Bryan on 11-15-2024 Triglyceride [Mass/Vol] 163 mg/dL <199 [facility] Comment on above: The drugs N-Acetylcy steine and Metamizole may falsely depress this assay. Normal range: <150 mg/dLBorderline High: 150-199 mg/dLHigh: 200-499 mg/dLVery High: >500 mg/dL White blood cell (WBC) count Ordered By: Se Bryan on 11-15-2024 WBC (Bld) [#/Vol] 7.5 10*3/uL 4.4-11.0 [facility] Parathyroid Scanon Parathyroid scan [facility] Imaging Services [address] [place], [place] [address] Parathyroid Scan MR#: [id number] Acct: [id number] Name: YAJAIRA BUNN Rep #: [id number] : 1945 F 79 From: Richard Porter PCP: Dr. Se Bryan MD Status: REG CLI Study: Parathyroid Scan Date of Exam: 11/05/24 Exam# [id number] Ordering Dr: Guicho Quezada MD PROCEDURE: PARATHYROID SCAN REASON FOR EXAM: PRIMARY HYPERPARA LOCALIZATION. Hypercalcemia. Posterior left inferior thyroid nodule. TECHNIQUE: Procedure Code: NMPTHY Modality: NM Procedure: PARATHYROID SCAN Imaging performed following intravenous technetium-99m sestamibi administration. Anterior imaging of the neck on immediate and delayed imaging was performed. RADIOPHARMACEUTICAL: Technetium 99 M sestamibi DOSE 26.7mCi intravenous. COMPARISON: Thyroid ultrasound of 11/04/2024. FINDINGS: Of the left inferior thyroid, a focus of increased uptake is seen, which persists on delayed images, with relative increased compared to the thyroid tissue on delayed imaging. This is concerning of the presence of a left parathyroid adenoma. NM/Parathyroid Scan IMPRESSION: Findings concerning for the presence of a left inferior parathyroid adenoma. Reading Location: [place] [address] CC: OMA Montes; Dr. Se Bryan MD; Dr. Guicho Quezada MD Criminology Teacher: Signed Normal [facility] Thyroidon 11-04-2024 Thyroid [facility] Imaging Services [address] [place] [id number] Thyroid MR#: [id number] Acct: [id number] Name: YAJAIRA BUNN Rep #: [id number] : 1945 F 79 From: Rodo lua MD PCP: Dr. Se Bryan MD Status: REG CLI Study: Thyroid Date of Exam: 11/04/24 Exam# [id number] Ordering Dr: Guicho Quezada MD PROCEDURE: THYROID 11/04/2024 REASON FOR EXAM: PARATHYROID LOCALIZATION. Hyperparathyroidism. TECHNIQUE: Procedure Code: USTHY Modality: US Procedure: THYROID COMPARISON: None FINDINGS: Right thyroid lobe size: 3.7 cm x 1.6 cm x 1.7 cm Left thyroid lobe size: 3.3 cm by 1.5 cm 1.3 cm Isthmus: 0.3 cm Background parenchymal echotexture is homogeneous. Nodules: . Lobe: Right, Location: Mid pole, Size: 0.6 cm x 0.5 cm 0.4 cm, Stability: N/A Composition: Solid or almost completely solid (+2) Echogenicity: Hypoechoic (+2) Margin: Smooth (+0) Shape: Wider than tall (+0) Echogenic Foci: None (+0) TI-RADS: 4 . Lobe: Left, Location: Mid, Size: 0.3 cm x 0.5 cm 0.3 cm, Stability: N/A Composition: Solid or almost completely solid (+2) Echogenicity: Hypoechoic (+2) Margin: Smooth (+0) Shape: Wider than tall (+0) Echogenic Foci: None (+0) TI-RADS: 4 Inferior to the right lobe of the thyroid, there is a 1 cm x 0.6 cm 0.3 cm hypoechoic nodular density. No evidence of vascularity. This may represent a parathyroid gland. There is also evidence of an 8 mm x 5 mm x 4 mm echogenic nodule inferior to the left lobe of the thyroid gland suggestive of possible parathyroid. Inferior to the left lobe of the thyroid there is an heterogeneous vascular hypoechoic nodular density measuring 2.2 cm 1.1 cm 1 cm. Biopsy recommended. US/Thyroid IMPRESSION: Subcentimeter bilateral nodules in both lobes of the thyroid as described. Heterogeneous complex nodule inferior to the left lobe of the thyroid measuring 2.2 cm 1.1 cm 1 cm with vascularity. Biopsy recommended. RECOMMENDATION: Based on most suspicious nodule. Nodule size = largest diameter Only evaluate nodule if =>5 mm. Growth > 20% in 2 dimensions = worsening. Follow up to 4 nodules. Recommend biopsy for no more than 2 nodules. Reading Location: [facility] CC: Dr. Se Bryan MD; Dr. Guicho Quezada MD Criminology Teacher: Signed Normal [facility] Endocrinology Visit Reporton 10-24-2024 Endocrinology Visit Report [facility] [address] [place] [address] OFFICE VISIT Date of Service: 10/24/24 MR#: [id number] Acct: [id number] Name: YAJAIRA BUNN Rep #: [id number] : 1945 Provider: Fidel Frias Age/Sex: 79/F Location: [facility] Status: Signed Intake Vital Signs 08/28/24 17:16 08/28/25 15:21 Height 5 ft 5 ft Weight: 171 lb BMI 33.4 BP 151/76 H Blood Pressure Location Lt brachial Position Sitting Pulse 82 Pulse Source Monitor Pulse Oximetry (%) 98 Oxygen Delivery Method room air Intake Visit Reasons: 3 M FU Chief Complaint: Osteoporosis Regulator Operator Required: No Accompanied by: Self Is patient in pain?: No Allergies No Known Allergies Allergy (Verified 10/24/24 15:21) Medications ???Medication ???Instructions ???Recorded ???Confirmed ???Type omeprazole magnesium 20 mg 20 mg PO DAILY 05/20/17 10/24/24 H istory tablet,delayed release aspirin 81 mg chewable tablet 81 mg PO QDAY 08/17/17 10/24/24 Hi story ferrous sulfate 325 mg (65 mg 325 mg PO DAILY 10/23/20 10/24/24 History iron) tablet (FeroSul) latanoprost 0.005 % eye drops 1 ml ophthalmic (eye) DAILY 10/24/24 History lisinopril 20 mg tablet 20 mg PO DAILY 10/23/20 10/24/24 H istory simvastatin 20 mg tablet 20 mg PO DAILY 10/23/20 10/24/24 H istory vit C 250 mg-vit E 90 mg-zinc 40 1 tab PO BID 08/18/21 10/24/24 His tory mg-copper 1 [id number] capsule (PreserVision AREDS-2) denosumab 60 mg/mL subcutaneous 60 mg subcut [id number] #1 mL 10/24/24 Rx syringe (Prolia) cholecalciferol (vitamin D3) 25 50 mcg PO QDAY 08/26/24 10/24/24 H istory mcg (1,000 unit) capsule cinacalcet 30 mg tablet 30 mg PO QDAY #30 tabs 10/11/24 Rx Have you fallen in the past year?: Yes (Denies any broken bones) PFSH Medical History Vitamin D deficiency Abnormal mammogram of right breast Heart murmur Acid reflux Arthritis HTN (hypertension) Surgical History H/O colonoscopy Ankle fracture History of hip surgery Family History Grandmother Breast cancer Social History household members: spouse Smoking Status: Former smoker alcohol intake: current alcohol intake frequency: holidays/special occasions only HPI HPI Chief Complaint: Osteoporosis Details: YAJAIRA BUNN, is a 79 F who presents to the office today for visit to discuss increased calcium levels. She has known primary hyperparathyroidism. She wanted to avoid surgery. She wasn't feeling well and we checked her calcium. LABS: Calcium 12.1 PTH 303 in 2023 Vitamin d 64 Sestamibi scan and ultrasound ordered. She has osteoporosis and is on Prolia. ROS Const Constitutional: Positive for fatigue; No weakness, weight change or change in appetite Eyes Eyes: No change in vision ENT ENT: No hearing loss, nasal congestion or difficulty swallowing Cardio Cardiology: No chest pain at rest, chest pain with exertion or shortness of breath Musc Musculoskeletal: No numbness Neuro Neurology: No weakness, memory loss or numbness Psych Psychiatric: No change in appetite, No memory loss and No Thoughts of harming yourself/Others Resp Respiratory: No cough or chest congestion Gastro GI: No difficulty swallowing Genitourinary-Female: No burning urination Skin Skin: No itchy eyes or wounds Endo Endocrine: Positive for fatigue; No weight change Aller/Imm Allergy/Immunologic: No itchy eyes Exam Const General: cooperative, healthy appearing, comfortable, no acute distress, well developed and not cushingoid Nutritional Appearance: well nourished Orientation: alert, awake and oriented x3 [facility] Head: normal to inspection Ears: hearing grossly normal bilaterally Nose: external nose normal Mouth: oral mucosae normal Eyes General: appearance normal, both eyes and all related structures Alignment and Position: alignment normal Periorbital: periorbital findings normal Eyelids: eyelids normal Conjunctivae: conjunctivae normal Neck Neck: normal visual inspection Neck mass: No Chest Chest palpation inspection: normal inspection of the chest Resp Effort Inspection: normal respiratory effort, able to speak in complete sentences, symmetric chest movement, no audible wheezes and no cough Cardio Rate: regular rate Rhythm: regular rhythm Skin General: no rashes or lesions noted Neuro General: patient alert, patient awake and patient oriented x3 Cranial Nerves: CN's II-XI intact bilaterally Cognition: normal cognition (more content not included)... Normal [facility] Anion gap in Serum or Plasma Ordered By: Guicho Quezada on 10-11-2024 Anion gap [Moles/Vol] 11 mmol/L - [facility] BUN/creatinine ratioOrdered By: Guicho Quezada on 10-11-2024 Urea nitrogen/Creatinine [Mass ratio] 15.5 mg/mg 10- [facility] Bilirubin, totalOrdered By: Guicho Quezada on 10-11-2024 Bilirubin [Mass/Vol] 0.22 mg/dL 0.00-1.30 [facility] Carbon dioxide, total [Moles /volume] in Central venous bloodOrdered By: Guicho Quezada on 10-11-2024 CO2 [Moles/Vol] 22.6 mmol/L 21.0-32.0 [facility] Chloride assayOrdered By: Demar Quezada on 10-11-2024 Chloride [Moles/Vol] 104 mmol/L 98-108 [facility] Comprehensive Metabolic Prof ilon 10-11-2024 Albumin [Mass/Vol] 4.5 g/dL Normal 3.4-4.8 [facility] Comment on above: Performed By: #### L 500.4050, L100.0100 #### [facility] [address] [place], [address] Albumin/Globulin [Mass ratio] 1.7 {ratio} Normal 0.9-2.4 [facility] Comment on above: Performed By: #### L 500.4050, L100.0100 #### [facility] [address] [place], [address] ALK PHOS 71 U/L Normal 35-104 [facility] Comment on above: Performed By: #### L 500.4050, L100.0100 #### [facility] [address] [place], [address] ALT [Catalytic activity/Vol] 18 U/L Normal <=34 [facility] Comment on above: Performed By: #### L 500.4050, L100.0100 #### [facility] [address] [place], [address] AST [Catalytic activity/Vol] 21 U/L Normal <=31 [facility] Comment on above: Performed By: #### L 500.4050, L100.0100 #### [facility] [address] [place], [address] Bilirubin [Mass/Vol] 0.22 mg/dL Normal 0.00-1.30 [facility] Comment on above: Performed By: #### L 500.4050, L100.0100 #### [facility] [address] [place], [address] BUN/CRE 15.5 RATIO Normal 10-20 [facility] Comment on above: Performed By: #### L 500.4050, L100.0100 #### [facility] [address] [place], [address] Calcium [Mass/Vol] 12.1 mg/dL High 7.6-11.0 [facility] Comment on above: Performed By: #### L 500.4050, L100.0100 #### [facility] [address] [place], [address] Chloride [Moles/Vol] 104 mmol/L Normal 98-108 [facility] Comment on above: Performed By: #### L 500.4050, L100.0100 #### [facility] [address] [place], [address] CO2 [Moles/Vol] 22.6 mmol/L Normal 21.0-32.0 [facility] Comment on above: Performed By: #### L 500.4050, L100.0100 #### [facility] [address] [place], [address] Creatinine [Mass/Vol] 1.07 mg/dL Normal 0.70-1.20 [facility] Comment on above: Performed By: #### L 500.4050, L100.0100 #### [facility] [address] [place], [address] GAP 11 Normal 5-15 [facility] Comment on above: Performed By: #### L 500.4050, L100.0100 #### [facility] [address] [place], [address] GFR/1.73 sq M.predicted among non-blacks MDRD (S/P/Bld) [Vol rate/Area] 53 mL/min/{1.73_m2} Low >60 [facility] Comment on above: Result Comment: mL/m in/1.73m2 CKD-EPI Creatinine Equation (2020) Performed By: #### L 500.4050, L100.0100 #### [facility] [address] [place], [address] Globulin (S) [Mass/Vol] 2.6 g/dL Normal 2.2-4.2 [facility] Comment on above: Performed By: #### L 500.4050, L100.0100 #### [facility] [address] [place], [address] Glucose [Mass/Vol] 100 mg/dL High 70-99 [facility] Comment on above: Performed By: #### L 500.4050, L100.0100 #### [facility] [address] [place], [address] Potassium [Moles/Vol] 4.3 mmol/L Normal 3.3-5.1 [facility] Comment on above: Performed By: #### L 500.4050, L100.0100 #### [facility] [address] [place], [address] Sodium [Moles/Vol] 137 mmol/L Normal 133-145 [facility] Comment on above: Performed By: #### L 500.4050, L100.0100 #### [facility] [address] [place], [address] T PROT 7.1 g/dL Normal 5.9-8.4 [facility] Comment on above: Performed By: #### L 500.4050, L100.0100 #### [facility] [address] [place], [address] Urea nitrogen [Mass/Vol] 17 mg/dL Normal 4-19 [facility] Comment on above: Performed By: #### L 500.4050, L100.0100 #### [facility] [address] [place], [address] Glomerular filtration rate ( GFR) estimation/1.73 sq m using serum, plasma, or whole bOrdered By: Guicho Quezada on 10-11-2024 GFR/1.73 sq M.predicted among non-blacks MDRD (S/P/Bld) [Vol rate/Area] 53 mL/min/{1.73_m2} Low >60 [facility] Comment on above: mL/min/1.73m2 CKD-EP I Creatinine Equation (2020) Laboratory - Chemistry and C hemistry - challengeOrdered By: Guicho Quezada on 10-11-2024 AST [Catalytic activity/Vol] 21 U/L <32 [facility] Potassium measurement (mass/ volume)Ordered By: Guicho Quezada on 10-11-2024 Potassium (Unsp spec) [Mass/Vol] 4.3 mmol/L 3.3-5.1 [facility] Serum creatinine measurement (mass/volume)Ordered By: Guicho Quezada on 10-11-2024 Creatinine [Mass/Vol] 1.07 mg/dL 0.70-1.20 [facility] Serum globulin measurementOr dered By: Guicho Quezada on 10-11-2024 Globulin (S) [Mass/Vol] 2.6 g/dL 2.2-4.2 [facility] Serum glucose measurement (m ass/volume)Ordered By: Guicho Quezada on 10-11-2024 Glucose [Mass/Vol] 100 mg/dL High 70-99 [facility] Serum or plasma alanine maciel otransferase (ALT) measurementOrdered By: Guicho Quezada on 10-11-2024 ALT [Catalytic activity/Vol] 18 U/L <35 [facility] Serum or plasma albumin rodriguez urement (mass/volume)Ordered By: Guicho Quezada on 10-11-2024 Albumin [Mass/Vol] 4.5 g/dL 3.4-4.8 [facility] Serum or plasma albumin/glob ulin mass ratioOrdered By: Guicho Quezada on 10-11-2024 Albumin/Globulin [Mass ratio] 1.7 {ratio} 0.9-2.4 [facility] Serum or plasma alkaline ana sphatase measurementOrdered By: Guicho Quezada on 10-11-2024 ALP [Catalytic activity/Vol] 71 U/L 35-104 [facility] Serum or plasma calcium rodriguez urement (mass/volume)Ordered By: Guicho Quezada on 10-11-2024 Calcium [Mass/Vol] 12.1 mg/dL High 7.6-11.0 [facility] Serum or plasma urea nitroge n measurement (mass/volume)Ordered By: Guicho Quezada on 10-11-2024 Urea nitrogen [Mass/Vol] 17 mg/dL 4-19 [facility] Sodium levelOrdered By: Guicho Quezada on 10-11-2024 Sodium [Moles/Vol] 137 mmol/L 133-145 [facility] Total proteinOrdered By: Levon Quezada on 10-11-2024 Protein [Mass/Vol] 7.1 g/dL 5.9-8.4 [facility] 12 Lead EKGon 08-28-2024 12 Lead EKG [facility] Cardiovascular Services [address] [place] [address] 12 Lead EKG 08/28/24 1933 MR#: [id number] Acct: [id number] Name: YAJAIRA BUNN Rep #: [id number] : 1945 78 From: Joe Velasco MD Attending Dr: Status: DEP ER Ordering Dr: Lorne Cherry MD Date: 08/28/24 Location: ED Sex: F C Admitted: Test Reason : DYSRHYTHMIA Blood Pressure : */* mmHG Vent. Rate : 83 BPM Atrial Rate : 83 BPM P-R Int : 166 ms QRS Dur : 80 ms QT Int : 366 ms P-R-T Axes : 58 20 37 degrees QTcB Int : 430 ms Normal sinus rhythm Normal ECG Confirmed by BRIDGETTE VALLE, JOE ([id number]), film or videotape editor SAMIRA ERNST ([id number]) on 08/29/2024 10:07:31 AM Referred By: Confirmed By: JOE VELASCO MD 08/29/241006 Date Joe Velasco MD CC: Dr. Se Bryan MD; Dr. Lorne Cherry MD Signed Normal [facility] Absolute lymphocyte countOrd ered By: Lorne Cherry on 08-28-2024 Lymphocytes Auto (Unsp spec) [#/Vol] 1.62 10*3/uL 0.83-4.51 [facility] Absolute neutrophil countOrd ered By: Lornecade Cherry on 08-28-2024 Neutrophils (Bld) [#/Vol] 5.7 10*3/uL 2.0-7.7 [facility] Anion gap in Serum or Plasma Ordered By: Lorne Cherry on 08-28-2024 Anion gap [Moles/Vol] 14 mmol/L - [facility] Automated lymphocyte count a s percentage of total leukocytesOrdered By: Lorne Cherry on 08-28-2024 Lymphocytes/100 WBC Auto (Unsp spec) 19.2 % [facility] BUN/creatinine ratioOrdered By: Lornecade Cherry on 08-28-2024 Urea nitrogen/Creatinine [Mass ratio] 16.1 mg/mg - [facility] Basic Metabolic Profile (BMP )on 08-28-2024 BUN Normal 06-15 [facility] Comment on above: Result Comment: Canajit clark via AZALEA: Ordered Performed By: #### L 500.2500 #### [facility] [address] [place], [address] BUN/CRE Normal 10-20 [facility] Comment on above: Result Comment: Canc elled via OM: MD Ordered Performed By: #### L 500.2500 #### [facility] [address] [place], [address] Calcium Normal 7.6-11.0 [facility] Comment on above: Result Comment: Canc elled via OM: MD Ordered Performed By: #### L 500.2500 #### [facility] [address] [place], [address] CL Normal 98-108 [facility] Comment on above: Result Comment: Canc elled via OM: MD Ordered Performed By: #### L 500.2500 #### [facility] [address] [place], [address] CO2 Normal 21.0-32.0 [facility] Comment on above: Result Comment: Canc elled via OM: MD Ordered Performed By: #### L 500.2500 #### [facility] [address] [place], [address] CREAT,SERUM Normal 0.70-1.20 [facility] Comment on above: Result Comment: Canc elled via OM: MD Ordered Performed By: #### L 500.2500 #### [facility] [address] [place], [address] eGFR Normal >60 [facility] Comment on above: Result Comment: Canc elled via OM: MD Ordered Performed By: #### L 500.2500 #### [facility] [address] [place], [address] GAP Normal 5-15 [facility] Comment on above: Result Comment: Canc elled via OM: MD Ordered Performed By: #### L 500.2500 #### [facility] [address] [place], [address] GLU Normal 70-99 [facility] Comment on above: Result Comment: Canc elled via OM: MD Ordered Performed By: #### L 500.2500 #### [facility] [address] [place], [address] Potassium Normal 3.3-5.1 [facility] Comment on above: Result Comment: Canc elled via OM: MD Ordered Performed By: #### L 500.2500 #### [facility] [address] [place], [address] Basic Metabolic Profile (BMP) Normal 133-145 [facility] Comment on above: Result Comment: Canc elled via OM: MD Ordered Performed By: #### L 500.2500 #### [facility] [address] [place], [address] Basophil percentageOrdered B y: Lorne Cherry on 08-28-2024 Basophils/100 WBC (Bld) 0.6 % 0-1 [facility] Bilirubin Test strip Ql (U)O rdered By: Lorne Cherry on 08-28-2024 Bilirubin Ql (U) Negative Negative [facility] Bilirubin, totalOrdered By: Lorne Cherry on 08-28-2024 Bilirubin [Mass/Vol] 0.30 mg/dL 0.00-1.30 [facility] CBC W/Diff, Automatedon 07- Absolute Lymph 1.62 X10 3/uL Normal 0.83-4.51 [facility] Comment on above: Performed By: #### L 500.4050, L100.0100 #### [facility] [address] [place], [address] Absolute Neut 5.7 X10 3/uL Normal 2.0-7.7 [facility] Comment on above: Performed By: #### L 500.4050, L100.0100 #### [facility] [address] [place], [address] Basophils/100 WBC (Bld) 0.6 % Normal 0-1 [facility] Comment on above: Performed By: #### L 500.4050, L100.0100 #### [facility] [address] [place], [address] Eosinophils/100 WBC (Bld) 2.7 % Normal 0-5 [facility] Comment on above: Performed By: #### L 500.4050, L100.0100 #### [facility] [address] [place], [address] Erythrocyte distribution width (RBC) [Ratio] 11.9 % Normal 11.6-14.6 [facility] Comment on above: Performed By: #### L 500.4050, L100.0100 #### [facility] [address] [place], [address] Hematocrit (Bld) [Volume fraction] 35.6 % Low 37-47 [facility] Comment on above: Performed By: #### L 500.4050, L100.0100 #### [facility] [address] [place], [address] Hemoglobin (Bld) [Mass/Vol] 12.3 g/dL Normal 12.0-15.0 [facility] Comment on above: Performed By: #### L 500.4050, L100.0100 #### [facility] [address] [place], [address] IG% 0.500 Normal 0.0-0.9 [facility] Comment on above: Result Comment: IG% - Immature Granulocytes (promyelocytes, myelocytes and metamyelocytes) > 1% indicates that a LEFT SHIFT is Present. Performed By: #### L 500.4050, L100.0100 #### [facility] [address] [place], [address] Lymphocytes/100 WBC (Bld) 19.2 % Normal 19-41 [facility] Comment on above: Performed By: #### L 500.4050, L100.0100 #### [facility] [address] [place], [address] MCH (RBC) [Entitic mass] 32.5 pg High 27.0-32.0 [facility] Comment on above: Performed By: #### L 500.4050, L100.0100 #### [facility] [address] [place], [address] MCHC (RBC) [Mass/Vol] 34.6 g/dL Normal 32-36 [facility] Comment on above: Performed By: #### L 500.4050, L100.0100 #### [facility] [address] [place], [address] MCV (RBC) [Entitic vol] 93.9 fL Normal 81-99 [facility] Comment on above: Performed By: #### L 500.4050, L100.0100 #### [facility] [address] [place], [address] Monocytes/100 WBC (Bld) 9.6 % Normal 0-10 [facility] Comment on above: Performed By: #### L 500.4050, L100.0100 #### [facility] [address] [place], [address] Neutrophils/100 WBC (Bld) 67.4 % Normal 47-70 [facility] Comment on above: Performed By: #### L 500.4050, L100.0100 #### [facility] [address] [place], [address] Nucleated RBC (Bld) [#/Vol] 0 10*3/uL Normal 0-5 [facility] Comment on above: Performed By: #### L 500.4050, L100.0100 #### [facility] [address] [place], [address] Platelet mean volume (Bld) [Entitic vol] 10.3 fL Normal 6.2-12.0 [facility] Comment on above: Performed By: #### L 500.4050, L100.0100 #### [facility] [address] [place], [address] Platelets (Bld) [#/Vol] 262 10*3/uL Normal 150-450 [facility] Comment on above: Performed By: #### L 500.4050, L100.0100 #### [facility] [address] [place], [address] RBC (Bld) [#/Vol] 3.79 10*6/uL Low 4.2-5.4 [facility] Comment on above: Performed By: #### L 500.4050, L100.0100 #### [facility] [address] [place], [address] RDW SD 40.4 fl Normal 35.1-43.9 [facility] Comment on above: Performed By: #### L 500.4050, L100.0100 #### [facility] [address] [place], [address] WBC (Bld) [#/Vol] 8.4 10*3/uL Normal 4.4-11.0 [facility] Comment on above: Performed By: #### L 500.4050, L100.0100 #### [facility] [address] [place], [address] Carbon dioxide, total [Moles /volume] in Central venous bloodOrdered By: Lorne Cherry on 08-28-2024 CO2 [Moles/Vol] 19.3 mmol/L Low 21.0-32.0 [facility] Chloride assayOrdered By: Yair Cherry on 08-28-2024 Chloride [Moles/Vol] 104 mmol/L 98-108 [facility] [facility] ilon 08-28-2024 Albumin [Mass/Vol] 4.4 g/dL Normal 3.4-4.8 [facility] Comment on above: Performed By: #### L 500.4050, L100.0100 #### [facility] [address] [place], [address] Albumin/Globulin [Mass ratio] 1.7 {ratio} Normal 0.9-2.4 [facility] Comment on above: Performed By: #### L 500.4050, L100.0100 #### [facility] [address] [place], [address] ALK PHOS 80 U/L Normal 35-104 [facility] Comment on above: Performed By: #### L 500.4050, L100.0100 #### [facility] [address] [place], [address] ALT [Catalytic activity/Vol] 16 U/L Normal <=34 [facility] Comment on above: Performed By: #### L 500.4050, L100.0100 #### [facility] [address] [place], [address] AST [Catalytic activity/Vol] 29 U/L Normal <=31 [facility] Comment on above: Result Comment: Hemo lysis present, Results??could be affected. ?? Performed By: #### L 500.4050, L100.0100 #### [facility] [address] [place], [address] Bilirubin [Mass/Vol] 0.30 mg/dL Normal 0.00-1.30 [facility] Comment on above: Performed By: #### L 500.4050, L100.0100 #### [facility] [address] [place], [address] BUN/CRE 16.1 RATIO Normal 10-20 [facility] Comment on above: Performed By: #### L 500.4050, L100.0100 #### [facility] [address] [place], [address] Calcium [Mass/Vol] 11.4 mg/dL High 7.6-11.0 [facility] Comment on above: Performed By: #### L 500.4050, L100.0100 #### [facility] [address] [place], [address] Chloride [Moles/Vol] 104 mmol/L Normal 98-108 [facility] Comment on above: Performed By: #### L 500.4050, L100.0100 #### [facility] [address] [place], [address] CO2 [Moles/Vol] 19.3 mmol/L Low 21.0-32.0 [facility] Comment on above: Performed By: #### L 500.4050, L100.0100 #### [facility] [address] [place], [address] Creatinine [Mass/Vol] 1.08 mg/dL Normal 0.70-1.20 [facility] Comment on above: Performed By: #### L 500.4050, L100.0100 #### [facility] [address] [place], [address] ECRCL 40.44 ml/min Low 50-250 [facility] Comment on above: Performed By: #### L 500.4050, L100.0100 #### [facility] [address] [place], [address] GAP 14 Normal 5-15 [facility] Comment on above: Performed By: #### L 500.4050, L100.0100 #### [facility] [address] [place], [address] GFR/1.73 sq M.predicted among non-blacks MDRD (S/P/Bld) [Vol rate/Area] 53 mL/min/{1.73_m2} Low >60 [facility] Comment on above: Result Comment: mL/m in/1.73m2 CKD-EPI Creatinine Equation (2020) Performed By: #### L 500.4050, L100.0100 #### [facility] [address] [place], [address] Globulin (S) [Mass/Vol] 2.6 g/dL Normal 2.2-4.2 [facility] Comment on above: Performed By: #### L 500.4050, L100.0100 #### [facility] [address] [place], [address] Glucose [Mass/Vol] 89 mg/dL Normal 70-99 [facility] Comment on above: Performed By: #### L 500.4050, L100.0100 #### [facility] [address] [place], [address] Potassium [Moles/Vol] 4.3 mmol/L Normal 3.3-5.1 [facility] Comment on above: Result Comment: Hemo lysis present, Results??could be affected. ?? Performed By: #### L 500.4050, L100.0100 #### [facility] [address] [place], [address] Sodium [Moles/Vol] 138 mmol/L Normal 133-145 [facility] Comment on above: Performed By: #### L 500.4050, L100.0100 #### [facility] [address] [place], [address] T PROT 7.0 g/dL Normal 5.9-8.4 [facility] Comment on above: Performed By: #### L 500.4050, L100.0100 #### [facility] [address] [place], [address] Urea nitrogen [Mass/Vol] 17 mg/dL Normal 4-19 [facility] Comment on above: Performed By: #### L 500.4050, L100.0100 #### [facility] [address] [place], [address] Emergency Department Summary on 08-28-2024 Emergency Department Summary [facility] Medical Records Department [address] [place] [address] Emergency Department Summary 08/28/24 MR#: [id number] Acct: [id number] Name: YAJAIRA BUNN Rep #: [id number] : 1945 78 From: Lorne Cherry MD PCP: Dr. Se Bryan MD Status:REG ER Location: ED HPI History of Present Illness Chief Complaint: Abn Labs Detail of Chief Complaint: Elevated calcium, 13.7 Informant: patient Onset/Context/Timing Onset: Days (Abnormal blood work August 26, calcium 13.7) Context: - (Unknown) Timing: - (Presumed continuous) Quality: Elevated calcium Location: Electrolytes Current Severity: Unknown repeating Maximum Severity: Moderate Worsened by: History of parathyroid hyperactivity Relieved by: Nothing Associated Symptoms Associated Symptoms: Increased thirst Narrative Narrative: Patient is a 78-year-old woman with history of iron deficiency anemia, hypertension, peptic ulcer disease, hyperactive parathyroid and osteopenia porosis. She is under the care of Dr. Guicho Quezada. She had blood work on August 26. Her calcium at that time was 13.7. She has had elevated calciums in the past in the mid to low 11 range. She denies headache, visual, ocular auditory symptoms. She denies trouble speech or swallowing. She denies paresthesia, anesthesia Medicus upper or lower extremity. Denies problems with coordin ation or balance She denies cardiac respiratory symptoms. Denies abdominal pain, nausea, vomiting, diarrhea or constipation. She denies dysuria, urgency, hematuria. She states she has frequency. She states has been drinking more fluids recently. She does not have history of diabetes. Patient denies weight loss. Patient denies bone pain. Patient denies history of cancer. Prior similar symptoms: Yes Recent Illness/Hospitalizatio n: No PFSH [facility] Medical History Vitamin D deficiency Abnormal mammogram of right breast Heart murmur Acid reflux Arthritis HTN (hypertension) Home Medications ???Medication ???Instructions ???Recorded ???Last Taken ???Type omeprazole magnesium 20 mg 20 mg PO DAILY 05/20/17 Unknown Hi story tablet,delayed release aspirin 81 mg chewable tablet 81 mg PO QDAY 08/17/17 Unknown His tory multivitamin with iron 1 tab PO QDAY 08/17/17 Unknown His tory ferrous sulfate 325 mg (65 mg 325 mg PO DAILY 10/23/20 Unknown H istory iron) tablet (FeroSul) latanoprost 0.005 % eye drops 1 ml ophthalmic (eye) DAILY Unknown History lisinopril 20 mg tablet 20 mg PO DAILY 10/23/20 Unknown Hi story simvastatin 20 mg tablet 20 mg PO DAILY 10/23/20 Unknown Hi story vit C 250 mg-vit E 90 mg-zinc 40 1 tab PO BID 08/18/21 Unknown Hist ory mg-copper 1 [id number] capsule (PreserVision AREDS-2) denosumab 60 mg/mL subcutaneous 60 mg subcut [id number] #1 mL Unknown Rx syringe (Prolia) cholecalciferol (vitamin D3) 25 50 mcg PO QDAY 08/26/24 Unknown Hi story mcg (1,000 unit) capsule Allergy/AdvReac Type Severity Reaction Status Date / Time No Known Allergies Allergy Verified 08/28/24 17:18 Family History Grandmother Breast cancer Surgical History H/O colonoscopy Ankle fracture History of hip surgery Social History (Updated 08/28/24 @ 20:[address] Lorne Cherry MD) household members: spouse Smoking Status: Former smoker alcohol intake: current alcohol intake frequency: holidays/special occasions only ROS ROS ED Constitutional Constitutional ED: Denies chills, fever(s), subjective or sweats Eyes Eyes: Denies blurry vision or change in vision ENT ENT ED: Denies rhinorrhea or sore throat Cardiovascular Cardiovascular: Denies chest pain or palpitations Respiratory/Chest Respiratory/Chest: Denies cough, dyspnea or dyspnea on exertion Gastrointestinal Gastrointestinal: Denies abdominal pain, constipation, diarrhea, melena, nausea or vomiting Genitourinary Genitourinary ED: Reports urinary frequency; Denies dysuria or hematuria Musculoskeletal Musculoskeletal: Denies arthralgias or myalgias Integumentary Denies rash Neurologic Neurologic: Denies headache(s), paresthesias or weakness Psychiatric Psychiatric: Denies anxiety or depression Endocrine Endocrinology: Denies cold intolerance or heat intolerance Hematologic/Lymphatic Hematologic/Lymphatic: Reports systems reviewed and no addt'l complaints, except as documented EXAM Physical Exam Const Vital Signs: 08/28/24 17:16 08/28/24 18:16 08/28/24 19:16 Temperature 97.5 F L Temperature Source Oral Pulse Rate 94 78 Respiratory Rate 18 16 Respiratory Effort Normal Non-Labored Blood Pressure 192/70 H 160/71 H (more content not included)... Normal [facility] Eosinophil percentageOrdered By: Lorne Cherry on 08-28-2024 Eosinophils/100 WBC (Bld) 2.7 % 0-5 [facility] Erythrocyte distribution wid th ratioOrdered By: Lorne Cherry on 08-28-2024 Erythrocyte distribution width (RBC) [Ratio] 11.9 % 11.6-14.6 [facility] Erythrocyte distribution wid th standard deviationOrdered By: Lorne Cherry on 08-28-2024 Erythrocyte distribution width (RBC) [Ratio] 40.4 fl 35.1-43.9 [facility] Glomerular filtration rate ( GFR) estimation/1.73 sq m using serum, plasma, or whole bOrdered By: Lorne Cherry on 08-28-2024 GFR/1.73 sq M.predicted among non-blacks MDRD (S/P/Bld) [Vol rate/Area] 53 mL/min/{1.73_m2} Low >60 [facility] Comment on above: mL/min/1.73m2 CKD-EP I Creatinine Equation (2020) Hematocrit Auto (Bld) [Volum e fraction]Ordered By: Lorne Cherry on 08-28-2024 Hematocrit (Bld) [Volume fraction] 35.6 % Low 37-47 [facility] Hemoglobin measurementOrdere d By: Lorne Cherry on 08-28-2024 Hemoglobin (Bld) [Mass/Vol] 12.3 g/dL 12.0-15.0 [facility] Immature granulocytes/100 WB C Auto (Bld)Ordered By: Lorne Cherry on 08-28-2024 Immature granulocytes/100 WBC (Bld) 0.500 % 0.0-0.9 [facility] Comment on above: IG% - Immature Granu locytes (promyelocytes, myelocytes and metamyelocytes) > 1% indicates that a LEFT SHIFT is Present. Ketones Test strip Ql (U)Ord ered By: Lorne Cherry on 08-28-2024 Ketones Ql (U) 5 mg/dl High Negative [facility] - Chemistry and C hemistry - challengeOrdered By: Lorne Cherry on 08-28-2024 AST [Catalytic activity/Vol] 29 U/L <32 [facility] Comment on above: Hemolysis present, R esults could be affected. MCV (mean corpuscular volume ) determinationOrdered By: Lorne Cherry on 08-28-2024 MCV (RBC) [Entitic vol] 93.9 fL 81-99 [facility] Mean corpuscular hemoglobin (MCH) determinationOrdered By: Lorne Cherry on 08-28-2024 MCH (RBC) [Entitic mass] 32.5 pg High 27.0-32.0 [facility] Mean corpuscular hemoglobin concentration (MCHC) determinationOrdered By: Lorne Cherry on 08-28-2024 MCHC (RBC) [Mass/Vol] 34.6 g/dL 32-36 [facility] Mean platelet volume determi nationOrdered By: Lorne Cherry on 08-28-2024 Platelet mean volume (Bld) [Entitic vol] 10.3 fL 6.2-12.0 [facility] Microscopic analysis of urin e for red blood cells (RBC)Ordered By: Lorne Cherry on 08-28-2024 Microscopic analysis of urine for red blood cells (RBC) 0-5 SEEN /hpf 0-5 [facility] Monocyte percentageOrdered B y: Lorne Cherry on 08-28-2024 Monocytes/100 WBC (Bld) 9.6 % 0-10 [facility] Mucus LM Ql (Urine sed)Order ed By: Lorne Cherry on 08-28-2024 Mucus Ql (Urine sed) 0 SEEN /hpf [facility] Neutrophil percentageOrdered By: Lorne Cherry on 08-28-2024 Neutrophils/100 WBC (Bld) 67.4 % 47-70 [facility] Nitrite Test strip Ql (U)Ord ered By: Lorne Cherry on 08-28-2024 Nitrite Ql (U) Negative Negative [facility] Nucleated red blood cell per centageOrdered By: Lorne Cherry on 08-28-2024 Nucleated RBC/100 WBC (Bld) [Ratio] 0 % 0-5 [facility] Platelet countOrdered By: Yair Cherry on 08-28-2024 Platelets (Bld) [#/Vol] 262 10*3/uL 150-450 [facility] Potassium measurement (mass/ volume)Ordered By: Lorne Cherry on 08-28-2024 Potassium (Unsp spec) [Mass/Vol] 4.3 mmol/L 3.3-5.1 [facility] Comment on above: Hemolysis present, R esults could be affected. Protein Test strip Ql (U)Ord ered By: Lorne Cherry on 08-28-2024 Protein Ql (U) Negative Negative [facility] RBC Auto (Bld) [#/Vol]Ordere d By: Lorne Cherry on 08-28-2024 RBC (Bld) [#/Vol] 3.79 10*6/uL Low 4.2-5.4 [facility] Serum creatinine measurement (mass/volume)Ordered By: Lorne Cherry on 08-28-2024 Creatinine [Mass/Vol] 1.08 mg/dL 0.70-1.20 [facility] Serum globulin measurementOr dered By: Lorne Cherry on 08-28-2024 Globulin (S) [Mass/Vol] 2.6 g/dL 2.2-4.2 [facility] Serum glucose measurement (m ass/volume)Ordered By: Lorne Cherry on 08-28-2024 Glucose [Mass/Vol] 89 mg/dL 70-99 [facility] Serum or plasma alanine maciel otransferase (ALT) measurementOrdered By: Lorne Cherry on 08-28-2024 ALT [Catalytic activity/Vol] 16 U/L <35 [facility] Serum or plasma albumin rodriguez urement (mass/volume)Ordered By: Lorne Cherry on 08-28-2024 Albumin [Mass/Vol] 4.4 g/dL 3.4-4.8 [facility] Serum or plasma albumin/glob ulin mass ratioOrdered By: Lorne Cherry on 08-28-2024 Albumin/Globulin [Mass ratio] 1.7 {ratio} 0.9-2.4 [facility] Serum or plasma alkaline ana sphatase measurementOrdered By: Lornecade Cherry on 08-28-2024 ALP [Catalytic activity/Vol] 80 U/L 35-104 [facility] Serum or plasma calcium rodriguez urement (mass/volume)Ordered By: Lornecade Cherry on 08-28-2024 Calcium [Mass/Vol] 11.4 mg/dL High 7.6-11.0 [facility] Serum or plasma urea nitroge n measurement (mass/volume)Ordered By: Lorne Cherry on 08-28-2024 Urea nitrogen [Mass/Vol] 17 mg/dL 4-19 [facility] Sodium levelOrdered By: Lorne Cherry on 08-28-2024 Sodium [Moles/Vol] 138 mmol/L 133-145 [facility] Squamous epithelial cells de tection in urine sediment by light microscopyOrdered By: Lorne Cherry on 08-28-2024 Epithelial cells.squamous LM Ql (Urine sed) 0-5 SEEN /hpf - [facility] Total proteinOrdered By: Lorne Cherry on 08-28-2024 Protein [Mass/Vol] 7.0 g/dL 5.9-8.4 [facility] Urinalysis, Completeon 08-28 EPI,SQUAMOUS 0-5 SEEN Normal 5-10 [facility] Comment on above: Order Comment: CLEAN CATCH Performed By: #### L 400.0001 #### [facility] [address] [place], [place], [id number] RBC 0-5 SEEN Normal 0-5 [facility] Comment on above: Order Comment: CLEAN CATCH Performed By: #### L 400.0001 #### [facility] [address] [place], [place], [id number] (692) WBC 0-5 SEEN Normal 0-5 [facility] Comment on above: Order Comment: CLEAN CATCH Performed By: #### L 400.0001 #### [facility] [address] [place], [address] BACTERIA 0 SEEN Normal None Seen [facility] Comment on above: Order Comment: CLEAN CATCH Performed By: #### L 400.0001 #### [facility] [address] [place], [place], [id number] Mucus Ql (Urine sed) 0 SEEN Normal [facility] Comment on above: Order Comment: CLEAN CATCH Performed By: #### L 400.0001 #### [facility] [address] [place], [place], [id number] Urine clarityOrdered By: Lorne Cherry on 08-28-2024 Clarity (U) Clear Clear [facility] Urine color determinationOrd ered By: Lorne Cherry on 08-28-2024 Color (U) Yellow Yellow [facility] Urine glucose detectionOrder ed By: Lorne Cherry on 08-28-2024 Glucose Ql (U) Normal mg/dl Normal [facility] Urine leukocyte esterase det ection by dipstickOrdered By: Lorne Cherry on 08-28-2024 Leukocyte esterase Test strip Ql (U) 25 /ul High Negative [facility] Urine pHOrdered By: Lorne mohamud on 08-28-2024 pH (U) 7.0 [pH] 5.0 - 8.0 [facility] Urine sediment bacteria coun t by microscopy (number/high power field)Ordered By: Lorne Cherry on 08-28-2024 Bacteria LM.HPF (Urine sed) [#/Area] 0 /[HPF] None Seen [facility] Urine specific gravity measu rementOrdered By: Lorne Cherry on 08-28-2024 Specific gravity (U) [Rel density] 1.010 1.002-1.030 [facility] Urine urobilinogen measureme ntOrdered By: Lorne Cherry on 08-28-2024 Urobilinogen Ql (U) Normal mg/dl Normal [facility] White blood cell (WBC) count Ordered By: Lorne Cherry on 08-28-2024 WBC (Bld) [#/Vol] 8.4 10*3/uL 4.4-11.0 [facility] White blood cell countOrdere d By: Lorne Cherry on 08-28-2024 White blood cell count 0-5 SEEN /hpf 0-5 [facility] Anion gap in Serum or Plasma Ordered By: Guicho Quezada on 08-27-2024 Anion gap [Moles/Vol] 13 mmol/L 5-15 [facility] BUN/creatinine ratioOrdered By: Guicho Quezada on 08-27-2024 Urea nitrogen/Creatinine [Mass ratio] 15.1 mg/mg 10-20 [facility] Bilirubin, totalOrdered By: Guicho Quezada on 08-27-2024 Bilirubin [Mass/Vol] 0.23 mg/dL 0.00-1.30 [facility] Carbon dioxide, total [Moles /volume] in Central venous bloodOrdered By: Guicho Quezada on 08-27-2024 CO2 [Moles/Vol] 23.3 mmol/L 21.0-32.0 [facility] Chloride assayOrdered By: Demar Quezada on 08-27-2024 Chloride [Moles/Vol] 102 mmol/L 98-108 [facility] Comprehensive Metabolic Prof ilon 08-27-2024 Albumin [Mass/Vol] 4.3 g/dL Normal 3.4-4.8 [facility] Comment on above: Order Comment: KISHOR Mckeon ADD TO LABS DONE ON 43-31-81DRKFWN: MG5 5 F Performed By: #### L 500.4050, L100.0100 #### [facility] [address] [place], [address] Albumin/Globulin [Mass ratio] 1.7 {ratio} Normal 0.9-2.4 [facility] Comment on above: Order Comment: KISHOR Mckeon ADD TO LABS DONE ON 86-18-82EXADHA: MG5 5 F Performed By: #### L 500.4050, L100.0100 #### [facility] [address] [place], [address] ALK PHOS 76 U/L Normal 35-104 [facility] Comment on above: Order Comment: PLEAS E ADD TO LABS DONE ON 81-28-88WGHPHE: MG5 5 F Performed By: #### L 500.4050, L100.0100 #### [facility] [address] [place], [address] ALT [Catalytic activity/Vol] 15 U/L Normal <=34 [facility] Comment on above: Order Comment: PLEAS E ADD TO LABS DONE ON 27-82-89URQWBL: MG5 5 F Performed By: #### L 500.4050, L100.0100 #### [facility] [address] [place], [address] AST [Catalytic activity/Vol] 24 U/L Normal <=31 [facility] Comment on above: Order Comment: PLEAS E ADD TO LABS DONE ON 18-58-99WUFYSW: MG5 5 F Performed By: #### L 500.4050, L100.0100 #### [facility] [address] [place], [address] Bilirubin [Mass/Vol] 0.23 mg/dL Normal 0.00-1.30 [facility] Comment on above: Order Comment: PLEAS E ADD TO LABS DONE ON 29-65-22VIGHGP: MG5 5 F Performed By: #### L 500.4050, L100.0100 #### [facility] [address] [place], [address] BUN/CRE 15.1 RATIO Normal 10-20 [facility] Comment on above: Order Comment: PLEAS E ADD TO LABS DONE ON 44-26-88YXNROI: MG5 5 F Performed By: #### L 500.4050, L100.0100 #### [facility] [address] [place], [address] Calcium [Mass/Vol] 13.7 mg/dL Invalid Interpretation Code 7.6-11.0 [facility] Comment on above: Order Comment: PLEAS E ADD TO LABS DONE ON 89-39-49NSMYGS: MG5 5 F Result Comment: Crit ical Result(s) Called SUNNY WELLS at: 1643 by: AMBERLY??Results read back by same. Performed By: #### L 500.4050, L100.0100 #### [facility] [address] [place], [address] Chloride [Moles/Vol] 102 mmol/L Normal 98-108 [facility] Comment on above: Order Comment: PLEAS E ADD TO LABS DONE ON 71-62-23HKTUMM: MG5 5 F Performed By: #### L 500.4050, L100.0100 #### [facility] [address] [place], [address] CO2 [Moles/Vol] 23.3 mmol/L Normal 21.0-32.0 [facility] Comment on above: Order Comment: PLEAS E ADD TO LABS DONE ON 66-60-62ZEFPOP: MG5 5 F Performed By: #### L 500.4050, L100.0100 #### [facility] [address] [place], [address] Creatinine [Mass/Vol] 1.19 mg/dL Normal 0.70-1.20 [facility] Comment on above: Order Comment: PLEAS E ADD TO LABS DONE ON 91-51-99DHGPNH: MG5 5 F Performed By: #### L 500.4050, L100.0100 #### [facility] [address] [place], [address] GAP 13 Normal 5-15 [facility] Comment on above: Order Comment: PLEAS E ADD TO LABS DONE ON 14-21-66VYFEFJ: MG5 5 F Performed By: #### L 500.4050, L100.0100 #### [facility] [address] [place], [address] GFR/1.73 sq M.predicted among non-blacks MDRD (S/P/Bld) [Vol rate/Area] 47 mL/min/{1.73_m2} Low >60 [facility] Comment on above: Order Comment: PLEAS E ADD TO LABS DONE ON 22-73-39KTWRWX: MG5 5 F Result Comment: mL/m in/1.73m2 CKD-EPI Creatinine Equation (2020) Performed By: #### L 500.4050, L100.0100 #### [facility] [address] [place], [address] Globulin (S) [Mass/Vol] 2.5 g/dL Normal 2.2-4.2 [facility] Comment on above: Order Comment: PLEAS E ADD TO LABS DONE ON 97-12-85LMTDAP: MG5 5 F Performed By: #### L 500.4050, L100.0100 #### [facility] [address] [place], [address] Glucose [Mass/Vol] 107 mg/dL High 70-99 [facility] Comment on above: Order Comment: PLEAS E ADD TO LABS DONE ON 33-34-05LHVXSC: MG5 5 F Performed By: #### L 500.4050, L100.0100 #### [facility] [address] [place], [address] Potassium [Moles/Vol] 4.5 mmol/L Normal 3.3-5.1 [facility] Comment on above: Order Comment: PLEAS E ADD TO LABS DONE ON 35-00-47IAFMJS: MG5 5 F Performed By: #### L 500.4050, L100.0100 #### [facility] [address] [place], [address] Sodium [Moles/Vol] 138 mmol/L Normal 133-145 [facility] Comment on above: Order Comment: PLEAS E ADD TO LABS DONE ON 30-25-35INYFRB: MG5 5 F Performed By: #### L 500.4050, L100.0100 #### [facility] [address] [place], [address] T PROT 6.8 g/dL Normal 5.9-8.4 [facility] Comment on above: Order Comment: KISHOR Mckeon ADD TO LABS DONE ON 83-73-43ALGKGX: MG5 5 F Performed By: #### L 500.4050, L100.0100 #### [facility] [address] [place], [address] Urea nitrogen [Mass/Vol] 18 mg/dL Normal 4-19 [facility] Comment on above: Order Comment: KISHOR Mckeon ADD TO LABS DONE ON 64-53-01AOYZNH: MG5 5 F Performed By: #### L 500.4050, L100.0100 #### [facility] [address] [place], [address] Glomerular filtration rate ( GFR) estimation/1.73 sq m using serum, plasma, or whole bOrdered By: Guicho Quezada on 08-27-2024 GFR/1.73 sq M.predicted among non-blacks MDRD (S/P/Bld) [Vol rate/Area] 47 mL/min/{1.73_m2} Low >60 [facility] Comment on above: mL/min/1.73m2 CKD-EP I Creatinine Equation (2020) Laboratory - Chemistry and C hemistry - challengeOrdered By: Guicho Quezada on 08-27-2024 AST [Catalytic activity/Vol] 24 U/L <32 [facility] Potassium measurement (mass/ volume)Ordered By: Guicho Quezada on 08-27-2024 Potassium (Unsp spec) [Mass/Vol] 4.5 mmol/L 3.3-5.1 [facility] Serum creatinine measurement (mass/volume)Ordered By: Guicho Quezada on 08-27-2024 Creatinine [Mass/Vol] 1.19 mg/dL 0.70-1.20 [facility] Serum globulin measurementOr dered By: Guicho Quezada on 08-27-2024 Globulin (S) [Mass/Vol] 2.5 g/dL 2.2-4.2 [facility] Serum glucose measurement (m ass/volume)Ordered By: Guicho Quezada on 08-27-2024 Glucose [Mass/Vol] 107 mg/dL High 70-99 [facility] Serum or plasma alanine maciel otransferase (ALT) measurementOrdered By: Guicho Quezada on 08-27-2024 ALT [Catalytic activity/Vol] 15 U/L <35 [facility] Serum or plasma albumin rodriguez urement (mass/volume)Ordered By: Guicho Quezada on 08-27-2024 Albumin [Mass/Vol] 4.3 g/dL 3.4-4.8 [facility] Serum or plasma albumin/glob ulin mass ratioOrdered By: Guicho Quezada on 08-27-2024 Albumin/Globulin [Mass ratio] 1.7 {ratio} 0.9-2.4 [facility] Serum or plasma alkaline ana sphatase measurementOrdered By: Guicho Quezada on 08-27-2024 ALP [Catalytic activity/Vol] 76 U/L 35-104 [facility] Serum or plasma calcium rodriguez urement (mass/volume)Ordered By: Guicho Quezada on 08-27-2024 Calcium [Mass/Vol] 13.7 mg/dL Critically high 7.6-11.0 [facility] Comment on above: Critical Result(s) C nathen CORREA RN at: 1643 by: AMBERLY Results read back by same. Serum or plasma urea nitroge n measurement (mass/volume)Ordered By: Guicho Quezada on 08-27-2024 Urea nitrogen [Mass/Vol] 18 mg/dL 4-19 [facility] Sodium levelOrdered By: Guicho Quezada on 08-27-2024 Sodium [Moles/Vol] 138 mmol/L 133-145 [facility] Total proteinOrdered By: Levon Quezada on 08-27-2024 Protein [Mass/Vol] 6.8 g/dL 5.9-8.4 [facility] Vitamin D,25 Hydroxyon 08-27 Vitamin D 25-OH 64.0 ng/mL Normal 30-100 [facility] Comment on above: Order Comment: KISHOR Mckeon ADD TO LABS DONE ON [id number]: MG5 5 F Result Comment: Heidi min D Status Deficiency: <20 ng/mL (50nmol/L) Insufficiency: 20-30 ng/mL (50-75 nmol/L) Sufficiency: 30-100 ng/mL (75-250 nmol/L) Toxicity: >100 ng/mL (>250 nmol/L) Performed By: #### L 500.4050, L100.0100 #### [facility] [address] [place], [address] Endocrinology Visit Reporton 08-26-2024 Endocrinology Visit Report [facility] [address] [place] [address] OFFICE VISIT Date of Service: 08/26/24 MR#: [id number] Acct: [id number] Name: YAJAIRA BUNN Rep #: [id number] : 1945 Provider: Fidel Frias Age/Sex: 78/F Location: [facility] [place], [place] Status: Signed Intake Vital Signs 10/20/23 13:02 08/26/24 13:49 Height 5 ft 5 ft Weight: 169 lb BMI 33.0 BP 144/80 H Blood Pressure Location Lt brachial Position Sitting Pulse 85 Pulse Source Monitor Pulse Oximetry (%) 96 Oxygen Delivery Method room air Intake Visit Reasons: 1 Y FU/ Prolia - B B Chief Complaint: Osteoporosis Regulator Operator Required: No Accompanied by: Self Is patient in pain?: No Allergies No Known Allergies Allergy (Verified 08/26/24 13:49) Medications ???Medication ???Instructions ???Recorded ???Confirmed ???Type omeprazole magnesium 20 mg 20 mg PO DAILY 05/20/17 08/26/24 H istory tablet,delayed release aspirin 81 mg chewable tablet 81 mg PO QDAY 08/17/17 08/26/24 Hi story multivitamin with iron 1 tab PO QDAY 08/17/17 08/26/24 Hi story ferrous sulfate 325 mg (65 mg 325 mg PO DAILY 10/23/20 08/26/24 History iron) tablet (FeroSul) latanoprost 0.005 % eye drops 1 ml ophthalmic (eye) DAILY 08/26/24 History lisinopril 20 mg tablet 20 mg PO DAILY 10/23/20 08/26/24 H istory simvastatin 20 mg tablet 20 mg PO DAILY 10/23/20 08/26/24 H istory vit C 250 mg-vit E 90 mg-zinc 40 1 tab PO BID 08/18/21 08/26/24 His tory mg-copper 1 [id number] capsule (PreserVision AREDS-2) denosumab 60 mg/mL subcutaneous 60 mg subcut [id number] #1 mL 08/26/24 Rx syringe (Prolia) cholecalciferol (vitamin D3) 25 50 mcg PO QDAY 08/26/24 08/26/24 H istory mcg (1,000 unit) capsule Have you fallen in the past year?: Yes (Denies any breaks or fractures. ) PFSH Medical History Vitamin D deficiency Abnormal mammogram of right breast Heart murmur Acid reflux Arthritis HTN (hypertension) Surgical History H/O colonoscopy Ankle fracture History of hip surgery Family History Grandmother Breast cancer Social History Smoking Status: Former smoker alcohol intake: current alcohol intake frequency: holidays/special occasions only HPI HPI Chief Complaint: Osteoporosis Details: YAJAIRA BUNN, is a 78 F who presents to the office today for follow up. She has osteoporosis and is taking Prolia. She had a fall in the Spring. No fractures or serious injury. She has primary hyperparathyroidism. She is attempting to avoid surgery. She has been feeling more fatigued than usual. She is taking a nap every day. She is due for labs. ROS Const Constitutional: Positive for fatigue; No weakness or weight change Cardio Cardiology: No chest pain at rest, chest pain with exertion or shortness of breath Musc Musculoskeletal: Positive for joint pain and muscle weakness (Legs); No numbness Neuro Neurology: No weakness or numbness Skin Skin: No wounds Endo Endocrine: Positive for fatigue; No weight change Exam Const General: cooperative, healthy appearing, comfortable, no acute distress, well developed and not cushingoid Nutritional Appearance: well nourished Orientation: alert, awake and oriented x3 HENMT Head: normal to inspection Ears: hearing grossly normal bilaterally Nose: external nose normal Mouth: oral mucosae normal Eyes General: appearance normal, both eyes and all related structures Alignment and Position: alignment normal Periorbital: periorbital findings normal Eyelids: eyelids normal Conjunctivae: conjunctivae normal Neck Neck: normal visual inspection Neck mass: No Thyroid: thyroid normal Chest Chest palpation inspection: normal inspection of the chest Resp Effort Inspection: normal respiratory effort, able to speak in complete sentences, symmetric chest movement, no audible wheezes and no cough Cardio Rate: regular rate Rhythm: regular rhythm Skin General: no rashes or lesions noted Neuro General: patient alert, patient awake and patient oriented x3 Cranial Nerves: CN's II-XI intact bilaterally Cognition: normal cognition Speech: speech normal Gait: normal gait Motor: muscle tone normal throughout Psych Appearance: grossly normal Mental Status: mental status grossly normal Mood: congruent mood Affect: normal affect Speech and Movement: speech and movement normal Attitude: cooperative Thought Process: normal Thought Content: normal Judgment: judgment good Office Procedures In (more content not included)... Normal [facility] Ferritinon 08-26-2024 Ferritin [Mass/Vol] 208 ng/mL Normal -378 [facility] Comment on above: Performed By: #### L 503.6550, L503.0106 #### [facility] [address] [place], [place], [id number] Serum or plasma ferritin ezra surement (mass/volume)Ordered By: Guicho Quezada on 08-26-2024 Ferritin [Mass/Vol] 208 ng/mL 22-378 [facility] Vitamin B12on 08-26-2024 Cobalamin (Vitamin B12) [Mass/Vol] 1101 pg/mL High 180-914 [facility] Comment on above: Performed By: #### L 503.6550, L503.0106 #### [facility] [address] [place], [place], [id number] Vitamin B12 ser/plasOrdered By: Guicho Quezada on 08-26-2024 Cobalamin (Vitamin B12) [Mass/Vol] 1101 pg/mL High 180-914 [facility] Office Visit Reporton 2023 Office Visit Report [facility] [address] [place] [address] OFFICE VISIT Date of Service: 02/23/24 MR#: [id number] Acct: [id number] Patient: YAJAIRA BUNN Rep #: [id number] : 1945 Provider: Fidel Frias Age/Sex: 78/F Location: [facility] [place], [place] Status: Signed Intake Vital Signs 10/20/23 13:02 01/24/24 13:05 Height 5 ft 5 ft Weight: 162 lb BMI 31.6 BP 150/69 H Blood Pressure Location Lt brachial Position Sitting Pulse 74 Pulse Source Monitor Pulse Oximetry (%) 96 Oxygen Delivery Method room air Intake Visit Reasons: Prolia - B B Chief Complaint: Osteoporosis Allergies No Known Allergies Allergy (Verified 10/20/23 13:04) Have you fallen in the past year?: No Office Procedures Injections Procedure performed by: Sunny Yeung Lot number: [id number] Frame Tender: [employer] date: 06/26/26 Dose of injection: 1 mL Site of injection: Sub-Q Medication Given: Yes Is this a patient provided medication?: No Office Meds Prolia 60 mg/mL subcutaneous syringe Performing Provider: Guicho Quezada MD Performing Location: [facility] Administered by: Sunny Yeung RN on 02/23/24 11:33 Dose Route Admin Location Dispensed Lot Number Expiration Date [facility] Man ufacturer 60 mg subcut Left Arm 1 mL [id number] 06/26/26 43983-072-55 [employer] Assessment and Plan Assessment and Plan (1) Osteoporosis: Status: Chronic Qualifiers: Osteoporosis type: age-related Presence of current pathological fracture: without current pathological fracture Qualified Code(s): M81.0 - Age-related osteoporosis without current pathological fracture Orders: Orders Prolia Injection 02/23/24 M81.0 - Age-related osteoporosis without current pathological fracture Clinical Quality Measures Falls Risk Screening/Assistive Devices Have you fallen in the past year?: No 02/26/24 1439 Date Guicho Quezada MD Cosigner Signature: Date (if applicable) CC: Normal [facility] Comprehensive Metabolic Prof ilon 12-26-2023 Albumin [Mass/Vol] 3.8 g/dL Normal 3.2-5.0 [facility] Comment on above: Performed By: #### L 500.4050, L509.1000, L506.1000 #### [facility] [address] [place], [address] Albumin/Globulin [Mass ratio] 1.1 {ratio} Normal 0.9-2.4 [facility] Comment on above: Performed By: #### L 500.4050, L509.1000, L506.1000 #### [facility] [address] [place], [address] ALK P 63 U/L Normal 45-117 [facility] Comment on above: Performed By: #### L 500.4050, L509.1000, L506.1000 #### [facility] [address] [place], [address] ALT [Catalytic activity/Vol] 24 U/L Normal 13-56 [facility] Comment on above: Performed By: #### L 500.4050, L509.1000, L506.1000 #### [facility] [address] [place], [address] AST [Catalytic activity/Vol] 23 U/L Normal 15-37 [facility] Comment on above: Performed By: #### L 500.4050, L509.1000, L506.1000 #### [facility] [address] [place], [address] Bilirubin [Mass/Vol] 0.40 mg/dL Normal 0.20-1.00 [facility] Comment on above: Result Comment: For patients on eltrombopag therapy, use of Dimension [place] TBIL is not recommended. Performed By: #### L 500.4050, L509.1000, L506.1000 #### [facility] [address] [place], [address] BUN/CRE 15.3 RATIO Normal 10-20 [facility] Comment on above: Performed By: #### L 500.4050, L509.1000, L506.1000 #### [facility] [address] [place], [address] CA,Total 11.4 mg/dL High 8.5-10.1 [facility] Comment on above: Performed By: #### L 500.4050, L509.1000, L506.1000 #### [facility] [address] [place], [address] Chloride [Moles/Vol] 105 mmol/L Normal 98-107 [facility] Comment on above: Performed By: #### L 500.4050, L509.1000, L506.1000 #### [facility] [address] [place], [address] CO2 [Moles/Vol] 26.0 mmol/L Normal 21.0-32.0 [facility] Comment on above: Performed By: #### L 500.4050, L509.1000, L506.1000 #### [facility] [address] [place], [address] Creatinine [Mass/Vol] 1.11 mg/dL High 0.55-1.02 [facility] Comment on above: Result Comment: The validity of the calculated GFR GFRAA in patients over 70 years has not been determined. Clinical correlation is essential. Performed By: #### L 500.4050, L509.1000, L506.1000 #### [facility] [address] [place], [address] EST GFR - AA 61 mL/min Normal >60 [facility] Comment on above: Result Comment: Afri can Citizen [place] GFR Calc Performed By: #### L 500.4050, L509.1000, L506.1000 #### [facility] [address] [place], [address] GAP 5 Normal 5-15 [facility] Comment on above: Performed By: #### L 500.4050, L509.1000, L506.1000 #### [facility] [address] [place], [address] GFR/1.73 sq M.predicted among non-blacks MDRD (S/P/Bld) [Vol rate/Area] 51 mL/min/{1.73_m2} Low >60 [facility] Comment on above: Result Comment: Non- GFR Calc Performed By: #### L 500.4050, L509.1000, L506.1000 #### [facility] [address] [place], [address] Globulin (S) [Mass/Vol] 3.6 g/dL Normal 2.2-4.2 [facility] Comment on above: Performed By: #### L 500.4050, L509.1000, L506.1000 #### [facility] [address] [place], [address] Glucose [Mass/Vol] 97 mg/dL Normal 74-106 [facility] Comment on above: Performed By: #### L 500.4050, L509.1000, L506.1000 #### [facility] [address] [place], [address] Potassium [Moles/Vol] 4.6 mmol/L Normal 3.5-5.1 [facility] Comment on above: Performed By: #### L 500.4050, L509.1000, L506.1000 #### [facility] [address] [place], [address] Sodium [Moles/Vol] 136 mmol/L Normal 136-145 [facility] Comment on above: Performed By: #### L 500.4050, L509.1000, L506.1000 #### [facility] [address] [place], [address] T PROT 7.4 g/dL Normal 6.4-8.2 [facility] Comment on above: Performed By: #### L 500.4050, L509.1000, L506.1000 #### [facility] [address] [place], [address] Urea nitrogen [Mass/Vol] 17 mg/dL Normal 7-18 [facility] Comment on above: Performed By: #### L 500.4050, L509.1000, L506.1000 #### [facility] [address] [place], [address] PTHINon 12-26-2023 PTH 303.3 pg/mL High 18.4-80.1 [facility] Comment on above: Performed By: #### L 500.4050, L509.1000, L506.1000 #### [facility] [address] [place], [address] Vitamin D,25 Hydroxyon 12-25 Vitamin D 25-OH 30.7 ng/mL Normal [facility] Comment on above: Result Comment: Heidi min D 25(OH) Status Range Deficiency <20 ng/mL (50nmol/L) Insufficiency 20 - 30 ng/mL (50 - 75 nmol/L) Sufficiency 30 - 100 ng/mL (75 - 250 nmol/L) Toxicity >100 ng/mL (>250 nmol/L) Performed By: #### L 500.4050, L509.1000, L506.1000 #### [facility] [address] [place], [address] Absolute lymphocyte countOrd ered By: Juaquin Kay on 10-11-2022 Lymphocytes Auto (Unsp spec) [#/Vol] 1.28 10*3/uL 0.83-4.51 [facility] Basophil percentageOrdered B y: Juaquin Kay on 10-11-2022 Basophils/100 WBC (Bld) 0.3 % 0-1 [facility] Chloride [Moles/Vol] 108 mmol/L 98-107 [facility] Eosinophils/100 WBC (Bld) 0.0 % 0-5 [facility] Glucose [Mass/Vol] 104 mg/dL 74-106 [facility] Comment on above: Fasting Glucose resu lt from 100 to 125 mg/dL suggests IMPAIRED HOMEOSTASIS per A.D.A. criteria. Neutrophils (Bld) [#/Vol] 7.5 10*3/uL 2.0-7.7 [facility] Neutrophils/100 WBC (Bld) 76.4 % 47-70 [facility] Potassium [Moles/Vol] 4.5 mmol/L 3.5-5.1 [facility] Sodium [Moles/Vol] 135 mmol/L 136-145 [facility] WBC (Bld) [#/Vol] 9.9 10*3/uL 4.4-11.0 [facility] Blood erythrocytes count (nu mber/volume)Ordered By: Juaquin Kay on 10-11-2022 RBC (Bld) [#/Vol] 3.88 10*6/uL 4.2-5.4 [facility] Blood hemoglobin measurement (mass/volume)Ordered By: Juaquin Kay on 10-11-2022 Hemoglobin (Bld) [Mass/Vol] 12.2 g/dL 12.0-15.0 [facility] Blood lymphocytes/100 leukoc ytesOrdered By: Juaquin Kay on 10-11-2022 Lymphocytes/100 WBC (Bld) 13.0 % 19-41 [facility] Blood monocytes/100 leukocyt esOrdered By: Juaquin Kay on 10-11-2022 Monocytes/100 WBC (Bld) 9.4 % 0-10 [facility] Blood platelet mean volumeOr dered By: Juaquin Kay on 10-11-2022 Platelet mean volume (Bld) [Entitic vol] 9.9 fL 6.2-12.0 [facility] Determination of erythrocyte mean corpuscular volume (MCV)Ordered By: Juaquin Kay on 10-11-2022 MCV (RBC) [Entitic vol] 94.8 fL 81-99 [facility] Hematocrit Auto (Bld) [Volum e fraction]Ordered By: Juaquin Kay on 10-11-2022 Hematocrit (Bld) [Volume fraction] 36.8 % 37-47 [facility] - Chemistry and C hemistry - challengeOrdered By: Juaquin Kay on 10-11-2022 CO2 [Moles/Vol] 22.0 mmol/L 21.0-32.0 [facility] Urea nitrogen/Creatinine [Mass ratio] 17.9 mg/mg 10-20 [facility] - Hematology and Cell countsOrdered By: Juaquin Kay on 10-11-2022 Erythrocyte distribution width (RBC) [Entitic vol] 42.8 fL 35.1-43.9 [facility] Erythrocyte distribution width (RBC) [Ratio] 12.3 % 11.6-14.6 [facility] Immature granulocytes/100 WBC (Bld) 0.900 % 0.0-0.9 [facility] Comment on above: IG% - Immature Granu locytes (promyelocytes, myelocytes and metamyelocytes) > 1% indicates that a LEFT SHIFT is Present. MCH (RBC) [Entitic mass] 31.4 pg 27.0-32.0 [facility] Nucleated RBC/100 WBC (Bld) [Ratio] 0 % 0-5 [facility] MCHC Auto (RBC) [Mass/Vol]Or dered By: Juaquin Kay on 10-11-2022 MCHC (RBC) [Mass/Vol] 33.2 g/dL 32-36 [facility] No Panel InformationOrdered By: Juaquin Kay on 10-11-2022 Estimated GFR (MDRD) Amer 58 mL/min >60 [facility] Comment on above: GFR Calc Estimated GFR (MDRD) Non-Af Amer 48 mL/min >60 [facility] Comment on above: Non- GFR Calc Platelets bldOrdered By: Rory Kay on 10-11-2022 Platelets (Bld) [#/Vol] 300 10*3/uL 150-450 [facility] Serum or plasma calcium rodriguez urement (mass/volume)Ordered By: Juaquin Kay on 10-11-2022 Calcium [Mass/Vol] 11.2 mg/dL 8.5-10.1 [facility] Serum or plasma creatinine m easurement (mass/volume)Ordered By: Juaquin Kay on 10-11-2022 Creatinine [Mass/Vol] 1.17 mg/dL 0.55-1.02 [facility] Comment on above: The validity of the calculated GFR & GFRAA in patients over 70 years has not been determined. Clinical correlation is essential. Serum or plasma urea nitroge n measurement (mass/volume)Ordered By: Juaquin Kay on 10-11-2022 Urea nitrogen [Mass/Vol] 21 mg/dL 7-18 [facility] Thin prep Papanicolaou smear with manual screeningOrdered By: Juaquin Kay on 10-11-2022 Thin prep Papanicolaou smear with manual screening 07 01- [facility] Absolute lymphocyte countOrd ered By: Dr. Quezada on 03-31-2022 Lymphocytes Auto (Unsp spec) [#/Vol] 1.10 10*3/uL 0.83-4.51 [facility] Basophil percentageOrdered B y: Dr. Quezada on 03-31-2022 Basophils/100 WBC (Bld) 1.1 % 0-1 [facility] Bilirubin [Mass/Vol] 0.40 mg/dL 0.20-1.00 [facility] Comment on above: For patients on eltr ombopag therapy, use of Dimension [place] TBIL is not recommended. Chloride [Moles/Vol] 107 mmol/L 98-107 [facility] Cholesterol [Mass/Vol] 205 mg/dL <[address] [facility] Comment on above: <200 mg/dL Desirable 200-240 mg/dL Borderline >240 mg/dL High Risk Eosinophils/100 WBC (Bld) 2.1 % 0-5 [facility] Glucose [Mass/Vol] 99 mg/dL 74-106 [facility] Neutrophils (Bld) [#/Vol] 3.5 10*3/uL 2.0-7.7 [facility] Neutrophils/100 WBC (Bld) 66.5 % 47-70 [facility] Potassium [Moles/Vol] 4.6 mmol/L 3.5-5.1 [facility] Protein [Mass/Vol] 7.5 g/dL 6.4-8.2 [facility] Sodium [Moles/Vol] 138 mmol/L 136-145 [facility] Triglyceride [Mass/Vol] 90 mg/dL <199 [facility] Comment on above: The drugs N-Acetylcy steine and Metamizole may falsely depress this assay.Serum Triglycerides Reference Interval Normal <150 mg/dL Borderline high 150 - 199 mg/dL High 200 - 499 mg/dL Very High > or = 500 mg/dL WBC (Bld) [#/Vol] 5.3 10*3/uL 4.4-11.0 [facility] Blood erythrocytes count (nu mber/volume)Ordered By: Dr. Quezada on 03-31-2022 RBC (Bld) [#/Vol] 3.79 10*6/uL 4.2-5.4 [facility] Blood hemoglobin measurement (mass/volume)Ordered By: Dr. Quezada on 03-31-2022 Hemoglobin (Bld) [Mass/Vol] 11.9 g/dL 12.0-15.0 [facility] Blood lymphocytes/100 leukoc ytesOrdered By: Dr. Quezada on 03-31-2022 Lymphocytes/100 WBC (Bld) 20.7 % 19-41 [facility] Blood monocytes/100 leukocyt esOrdered By: Dr. Quezada on 03-31-2022 Monocytes/100 WBC (Bld) 9.4 % 0-10 [facility] Blood platelet mean volumeOr dered By: Dr. Quezada on 03-31-2022 Platelet mean volume (Bld) [Entitic vol] 9.6 fL 6.2-12.0 [facility] Determination of erythrocyte mean corpuscular volume (MCV)Ordered By: Dr. Quezada on 03-31-2022 MCV (RBC) [Entitic vol] 95.3 fL 81-99 [facility] Hematocrit Auto (Bld) [Volum e fraction]Ordered By: Dr. Quezada on 03-31-2022 Hematocrit (Bld) [Volume fraction] 36.1 % 37-47 [facility] - Chemistry and C hemistry - challengeOrdered By: Dr. Quezada on 03-31-2022 ALP [Catalytic activity/Vol] 60 U/L 45-117 [facility] ALT [Catalytic activity/Vol] 27 U/L 13-56 [facility] CO2 [Moles/Vol] 27.0 mmol/L 21.0-32.0 [facility] Globulin (S) [Mass/Vol] 3.8 g/dL 2.2-4.2 [facility] Urea nitrogen/Creatinine [Mass ratio] 17.4 mg/mg 10-20 [facility] - Hematology and Cell countsOrdered By: Dr. Quezada on 03-31-2022 Erythrocyte distribution width (RBC) [Entitic vol] 42.4 fL 35.1-43.9 [facility] Erythrocyte distribution width (RBC) [Ratio] 12.3 % 11.6-14.6 [facility] Immature granulocytes/100 WBC (Bld) 0.200 % 0.0-0.9 [facility] Comment on above: IG% - Immature Granu locytes (promyelocytes, myelocytes and metamyelocytes) > 1% indicates that a LEFT SHIFT is Present. MCH (RBC) [Entitic mass] 31.4 pg 27.0-32.0 [facility] Nucleated RBC/100 WBC (Bld) [Ratio] 0 % 0-5 [facility] MCHC Auto (RBC) [Mass/Vol]Or dered By: Dr. Quezada on 03-31-2022 MCHC (RBC) [Mass/Vol] 33.0 g/dL 32-36 [facility] No Panel InformationOrdered By: Dr. Quezada on 03-31-2022 Estimated GFR (MDRD) Amer 63 mL/min >60 [facility] Comment on above: GFR Calc Estimated GFR (MDRD) Non-Af Amer 52 mL/min >60 [facility] Comment on above: Non- GFR Calc Parathyroid Hormone (Intact) 202.2 pg/mL 18.4-80.1 [facility] Vitamin D 25-Hydroxy 45.6 ng/mL [facility] Comment on above: Vitamin D 25(OH) Sta tus Range Deficiency <20 ng/mL (50nmol/L) Insufficiency 20 - 30 ng/mL (50 - 75 nmol/L) Sufficiency 30 - 100 ng/mL (75 - 250 nmol/L) Toxicity >100 ng/mL (>250 nmol/L) Platelets bldOrdered By: Dr. Quezada on 03-31-2022 Platelets (Bld) [#/Vol] 259 10*3/uL 150-450 [facility] Serum or plasma albumin rodriguez urement (mass/volume)Ordered By: Dr. Quezada on 03-31-2022 Albumin [Mass/Vol] 3.7 g/dL 3.2-5.0 [facility] Serum or plasma albumin/glob ulin mass ratioOrdered By: Dr. Quezada on 03-31-2022 Albumin/Globulin [Mass ratio] 1.0 {ratio} 0.9-2.4 [facility] Serum or plasma calcium rodriguez urement (mass/volume)Ordered By: Dr. Quezada on 03-31-2022 Calcium [Mass/Vol] 11.1 mg/dL 8.5-10.1 [facility] Serum or plasma cholesterol in HDL measurement (mass/volume)Ordered By: Dr. Quezada on 03-31-2022 Cholesterol in HDL [Mass/Vol] 74 mg/dL >40 [facility] Comment on above: The drugs N-Acetylcy steine and Metamizole may falsely depress this assay. Reference Range HDL <40 mg/dL Low HDL Cholesterol HDL >or= 60 mg/dL High HDL Cholesterol Serum or plasma cholesterol in VLDL measurement (mass/volume)Ordered By: Dr. Quezada on 03-31-2022 Cholesterol in VLDL [Mass/Vol] 18 mg/dL 5-40 [facility] Serum or plasma creatinine m easurement (mass/volume)Ordered By: Dr. Quezada on 03-31-2022 Creatinine [Mass/Vol] 1.09 mg/dL 0.55-1.02 [facility] Comment on above: The validity of the calculated GFR & GFRAA in patients over 70 years has not been determined. Clinical correlation is essential. Serum or plasma low density lipoprotein (LDL) cholesterol measurement (mass/volume)Ordered By: Dr. Quezada on 03-31-2022 Cholesterol in LDL [Mass/Vol] 113 mg/dL 0-130 [facility] Serum or plasma urea nitroge n measurement (mass/volume)Ordered By: Dr. Quezada on 03-31-2022 Urea nitrogen [Mass/Vol] 19 mg/dL 7-18 [facility] Thin prep Papanicolaou smear with manual screeningOrdered By: Dr. Quezada on 03-31-2022 Thin prep Papanicolaou smear with manual screening 18 U/L 15-37 [facility] Thin prep Papanicolaou smear with manual screening 4 5-15 [facility] Absolute lymphocyte counton 09-24-2021 Lymphocytes Auto (Unsp spec) [#/Vol] 1.08 10*3/uL 0.83-4.51 [facility] Work Phone: Basophil percentageon 2021 Basophils/100 WBC (Bld) 0.9 % 0-1 [facility] Work Phone: [phone] Bilirubin [Mass/Vol] 0.30 mg/dL 0.20-1.00 [facility] Work Phone: Comment on above: For patients on eltr ombopag therapy, use of Dimension [place] TBIL is not recommended. Chloride [Moles/Vol] 108 mmol/L 98-107 [facility] Work Phone: Cholesterol [Mass/Vol] 175 mg/dL <[address] [facility] Work Phone: Comment on above: <200 mg/dL Desirable 200-240 mg/dL Borderline >240 mg/dL High Risk Eosinophils/100 WBC (Bld) 2.9 % 0-5 [facility] Work Phone: Glucose [Mass/Vol] 99 mg/dL 74-106 [facility] Work Phone: Neutrophils (Bld) [#/Vol] 4.4 10*3/uL 2.0-7.7 [facility] Work Phone: Neutrophils/100 WBC (Bld) 67.7 % 47-70 [facility] Work Phone: Potassium [Moles/Vol] 4.5 mmol/L 3.5-5.1 [facility] Work Phone: Protein [Mass/Vol] 7.1 g/dL 6.4-8.2 [facility] Work Phone: [phone] Sodium [Moles/Vol] 138 mmol/L 136-145 [facility] Work Phone: [phone] Triglyceride [Mass/Vol] 145 mg/dL <199 [facility] Work Phone: [phone] Comment on above: The drugs N-Acetylcy steine and Metamizole may falsely depress this assay.Serum Triglycerides Reference Interval Normal <150 mg/dL Borderline high 150 - 199 mg/dL High 200 - 499 mg/dL Very High > or = 500 mg/dL WBC (Bld) [#/Vol] 6.5 10*3/uL 4.4-11.0 [facility] Work Phone: [phone] Blood erythrocytes count (nu mber/volume)on 09-24-2021 RBC (Bld) [#/Vol] 3.64 10*6/uL 4.2-5.4 [facility] Work Phone: [phone] Blood hemoglobin measurement (mass/volume)on 09-24-2021 Hemoglobin (Bld) [Mass/Vol] 11.3 g/dL 12.0-15.0 [facility] Work Phone: [phone] Blood lymphocytes/100 leukoc yteson 09-24-2021 Lymphocytes/100 WBC (Bld) 16.7 % 19-41 [facility] Work Phone: [phone] Blood monocytes/100 leukocyt eson 09-24-2021 Monocytes/100 WBC (Bld) 11.6 % 0-10 [facility] Work Phone: [phone] Blood platelet mean volumeon 09-24-2021 Platelet mean volume (Bld) [Entitic vol] 9.9 fL 6.2-12.0 [facility] Work Phone: [phone] Determination of erythrocyte mean corpuscular volume (MCV)on 09-24-2021 MCV (RBC) [Entitic vol] 94.2 fL 81-99 [facility] Work Phone: [phone] Hematocrit Auto (Bld) [Volum e fraction]on 09-24-2021 Hematocrit (Bld) [Volume fraction] 34.3 % 37-47 [facility] Work Phone: [phone] Laboratory - Chemistry and C hemistry - challengeon 09-24-2021 ALP [Catalytic activity/Vol] 72 U/L 45-117 [facility] Work Phone: [phone] ALT [Catalytic activity/Vol] 26 U/L 13-56 [facility] Work Phone: [phone] CO2 [Moles/Vol] 25.0 mmol/L 21.0-32.0 [facility] Work Phone: [phone] Globulin (S) [Mass/Vol] 3.6 g/dL 2.2-4.2 [facility] Work Phone: [phone] Urea nitrogen/Creatinine [Mass ratio] 17.1 mg/mg 10-20 [facility] Work Phone: [phone] Laboratory - Hematology and Cell countson 09-24-2021 Erythrocyte distribution width (RBC) [Entitic vol] 42.4 fL 35.1-43.9 [facility] Work Phone: [phone] Erythrocyte distribution width (RBC) [Ratio] 12.3 % 11.6-14.6 [facility] Work Phone: [phone] Immature granulocytes/100 WBC (Bld) 0.200 % 0.0-0.9 [facility] Work Phone: [phone] Comment on above: IG% - Immature Granu locytes (promyelocytes, myelocytes and metamyelocytes) > 1% indicates that a LEFT SHIFT is Present. MCH (RBC) [Entitic mass] 31.0 pg 27.0-32.0 [facility] Work Phone: [phone] Nucleated RBC/100 WBC (Bld) [Ratio] 0 % 0-5 [facility] Work Phone: [phone] MCHC Auto (RBC) [Mass/Vol]on 09-24-2021 MCHC (RBC) [Mass/Vol] 32.9 g/dL 32-36 [facility] Work Phone: [phone] Panel Informationon 09-24 Estimated GFR (MDRD) Amer 58 mL/min >60 [facility] Work Phone: Comment on above: GFR Calc Estimated GFR (MDRD) Non-Af Amer 48 mL/min >60 [facility] Work Phone: Comment on above: Non- GFR Calc Platelets bldon 09-24-2021 Platelets (Bld) [#/Vol] 287 10*3/uL 150-450 [facility] Work Phone: [phone] Serum or plasma albumin rodriguez urement (mass/volume)on 09-24-2021 Albumin [Mass/Vol] 3.5 g/dL 3.2-5.0 [facility] Work Phone: [phone] Serum or plasma albumin/glob ulin mass ratioon 09-24-2021 Albumin/Globulin [Mass ratio] 1.0 {ratio} 0.9-2.4 [facility] Work Phone: [phone] Serum or plasma calcium rodriguez urement (mass/volume)on 09-24-2021 Calcium [Mass/Vol] 10.9 mg/dL 8.5-10.1 [facility] Work Phone: [phone] Serum or plasma cholesterol in HDL measurement (mass/volume)on 09-24-2021 Cholesterol in HDL [Mass/Vol] 57 mg/dL >40 [facility] Work Phone: Comment on above: The drugs N-Acetylcy steine and Metamizole may falsely depress this assay. Reference Range HDL <40 mg/dL Low HDL Cholesterol HDL >or= 60 mg/dL High HDL Cholesterol Serum or plasma cholesterol in VLDL measurement (mass/volume)on 09-24-2021 Cholesterol in VLDL [Mass/Vol] 29 mg/dL 5-40 [facility] Work Phone: [phone] Serum or plasma creatinine m easurement (mass/volume)on 09-24-2021 Creatinine [Mass/Vol] 1.17 mg/dL 0.55-1.02 [facility] Work Phone: [phone] Comment on above: The validity of the calculated GFR & GFRAA in patients over 70 years has not been determined. Clinical correlation is essential. Serum or plasma low density lipoprotein (LDL) cholesterol measurement (mass/volume)on 09-24-2021 Cholesterol in LDL [Mass/Vol] 89 mg/dL 0-130 [facility] Work Phone: Serum or plasma urea nitroge n measurement (mass/volume)on 09-24-2021 Urea nitrogen [Mass/Vol] 20 mg/dL 7-18 [facility] Work Phone: Thin prep Papanicolaou smear with manual screeningon 09-24-2021 Thin prep Papanicolaou smear with manual screening 19 U/L 15-37 [facility] Work Phone: Thin prep Papanicolaou smear with manual screening 5 5-15 [facility] Work Phone: .Auto Diffon 09-18-2018 Ammonia (P) [Mass/Vol] 1.20 10 3/mcL High 0.15-1.00 [facility] ([place]) Comment on above: Performed By: #### B MP, GFR #### [address] [address] Basophils (Bld) [#/Vol] 0.00 10 3/mcL Normal 0.00-0.19 [facility] ([place]) Comment on above: Performed By: #### B MP, GFR #### [address] [address] Basophils/100 WBC (Bld) 0.3 % Normal 0.0-2.5 [facility] ([place]) Comment on above: Performed By: #### B MP, GFR #### [address] [address] Eosinophils (Bld) [#/Vol] 0.00 10 3/mcL Normal 0.00-0.40 [facility] ([place]) Comment on above: Performed By: #### B MP, GFR #### [address] [address] Eosinophils/100 WBC (Bld) 0.1 % Normal 0.0-7.0 [facility] ([place]) Comment on above: Performed By: #### B MP, GFR #### [address] [address] Lymphocytes (Bld) [#/Vol] 1.20 10 3/mcL Normal 0.77-3.85 [facility] ([place]) Comment on above: Performed By: #### B MP, GFR #### [address] [address] Lymphocytes/100 WBC (Bld) 11.8 % Normal 10.0-50.0 [facility] ([place]) Comment on above: Performed By: #### B MP, GFR #### [address] [address] Monocytes/100 WBC (Bld) 11.7 % Normal 1.7-13.0 [facility] ([place]) Comment on above: Performed By: #### B MP, GFR #### [address] [address] Neutrophils/100 WBC (Bld) 76.1 % Normal 37.0-80.0 [facility] ([place]) Comment on above: Performed By: #### B MP, GFR #### [address] [address] .GFRon 09-18-2018 GFR Non- 54 ml/min/1.73sqm Normal [facility] ([place]) Comment on above: Result Comment: GFR Population mean for , Non- Americans Ages 20-29 = 116 mL/min/1.73 sq.m. Ages 30-39 = 107 mL/min/1.73 sq.m. Ages 40-49 = 99 mL/min/1.73 sq.m. Ages 50-59 = 93 mL/min/1.73 sq.m. Ages 60-69 = 85 mL/min/1.73 sq.m. Ages 70+ = 75 mL/min/1.73 sq.m. Chronic Kidney Disease: Less than 60 mL/min/1.73 square meters End Stage Renal Disease: Less than 15 mL/min/1.73 square meters Performed By: #### B MP, GFR #### [address] [address] GFR 65 ml/min/1.73sqm Normal [facility] ([place]) Comment on above: Result Comment: GFR Population mean for , Non- Americans Ages 20-29 = 116 mL/min/1.73 sq.m. Ages 30-39 = 107 mL/min/1.73 sq.m. Ages 40-49 = 99 mL/min/1.73 sq.m. Ages 50-59 = 93 mL/min/1.73 sq.m. Ages 60-69 = 85 mL/min/1.73 sq.m. Ages 70+ = 75 mL/min/1.73 sq.m. Chronic Kidney Disease: Less than 60 mL/min/1.73 square meters End Stage Renal Disease: Less than 15 mL/min/1.73 square meters Performed By: #### B MP, GFR #### [address] [address] .NEUABSon 09-18-2018 Neutrophils (Bld) [#/Vol] 8.00 10 3/mcL High 2.85-6.16 [facility] ([place]) Comment on above: Performed By: #### B MP, GFR #### [address] [address] BMPon 09-18-2018 Calcium [Mass/Vol] 9.8 mg/dL Normal 8.4-10.2 [facility] ([place]) Comment on above: Performed By: #### B MP, GFR #### [address] [address] Chloride [Moles/Vol] 97 mmol/L Low 98-107 [facility] ([place]) Comment on above: Performed By: #### B MP, GFR #### [address] [address] CO2 [Moles/Vol] 29 mmol/L Normal 23-31 [facility] ([place]) Comment on above: Performed By: #### B MP, GFR #### [address] [address] Creatinine [Mass/Vol] 1.02 mg/dL Normal 0.55-1.02 [facility] ([place]) Comment on above: Performed By: #### B MP, GFR #### [address] [address] Electrolyte Balance 5.0 mEq/L Normal [facility] ([place]) Comment on above: Performed By: #### B MP, GFR #### [address] [address] Glucose [Mass/Vol] 113 mg/dL High 83-110 [facility] ([place] Comment on above: Performed By: #### B MP, GFR #### [address] [address] Potassium [Moles/Vol] 4.4 mmol/L Normal 3.5-5.1 [facility] ([place] Comment on above: Performed By: #### B MP, GFR #### [address] [address] Sodium [Moles/Vol] 131 mmol/L Low 136-145 [facility] ([place] Comment on above: Performed By: #### B MP, GFR #### [address] [address] Urea nitrogen [Mass/Vol] 19 mg/dL High 7-18 [facility] ([place]) Comment on above: Performed By: #### B MP, GFR #### [address] [address] Urea nitrogen/Creatinine [Mass ratio] 19 ratio Normal 7-27 [facility] ([place]) Comment on above: Performed By: #### B MP, GFR #### [address] [address] CBCon 09-18-2018 Erythrocyte distribution width (RBC) [Ratio] 12.7 % Normal 11.5-14.5 [facility] ([place]) Comment on above: Performed By: #### C BC, ADIFF, ANEU #### [address] [address] #### BMP, GFR #### [address] [address] Hematocrit (Bld) [Volume fraction] 26.2 % Low 37.0-47.0 [facility] ([place]) Comment on above: Performed By: #### C BC, ADIFF, ANEU #### [address] [address] #### BMP, GFR #### [address] [address] Hemoglobin (Bld) [Mass/Vol] 9.4 G/dL Low 12.0-16.0 [facility] ([place]) Comment on above: Performed By: #### C BC, ADIFF, ANEU #### [place] [address] #### BMP, GFR #### [place] [phone] MCH (RBC) [Entitic mass] 32.7 pg High 27.0-31.2 [facility] ([place] Comment on above: Performed By: #### C TERESO, ADIFF, ANEU #### [place] [address] #### BMP, GFR #### [place] [address] MCHC (RBC) [Mass/Vol] 35.7 G/dL Normal 33.0-37.0 [facility] ([place] Comment on above: Performed By: #### C EBENEZER RIDERIFF, ANEU #### [place] [address] #### BMP, GFR #### [place] [address] MCV (RBC) [Entitic vol] 91.5 fL Normal 80.0-94.0 [facility] ([place] Comment on above: Performed By: #### C BC, ADIFF, ANEU #### [place] [address] #### BMP, GFR #### [place] [id number] Platelet mean volume (Bld) [Entitic vol] 8.6 fL Normal 7.4-10.4 [facility] ([place]) Comment on above: Performed By: #### C BC, ADIFF, ANEU #### [address] [address] #### BMP, GFR #### [address] [address] Platelets (Bld) [#/Vol] 218 10 3/mcL Normal 130-400 [facility] ([place]) Comment on above: Performed By: #### C BC, ADIFF, ANEU #### [address] [address] #### BMP, GFR #### [place] [address] RBC (Bld) [#/Vol] 2.86 10 6/mcL Low 4.20-5.40 [facility] ([place] Comment on above: Performed By: #### C BC, ADIFF, ANEU #### [address] [address] #### BMP, GFR #### [place] [address] WBC (Bld) [#/Vol] 10.50 10 3/mcL Normal 4.60-10.80 [facility] ([place] Comment on above: Performed By: #### C BC, EBENEZERIFF, ANEU #### [address] [address] #### BMP, GFR #### [address] [address] NAon 09-18-2018 Sodium [Moles/Vol] 130 mmol/L Low 136-145 [facility] ([place] Comment on above: Performed By: #### B MP, GFR #### [address] [address] .GFRon 09-17-2018 GFR Non- 50 ml/min/1.73sqm Normal [facility] ([place]) Comment on above: Result Comment: GFR Population mean for , Non- Americans Ages 20-29 = 116 mL/min/1.73 sq.m. Ages 30-39 = 107 mL/min/1.73 sq.m. Ages 40-49 = 99 mL/min/1.73 sq.m. Ages 50-59 = 93 mL/min/1.73 sq.m. Ages 60-69 = 85 mL/min/1.73 sq.m. Ages 70+ = 75 mL/min/1.73 sq.m. Chronic Kidney Disease: Less than 60 mL/min/1.73 square meters End Stage Renal Disease: Less than 15 mL/min/1.73 square meters Performed By: #### B MP, GFR #### [address] [address] GFR 60 ml/min/1.73sqm Normal [facility] ([place]) Comment on above: Result Comment: GFR Population mean for , Non- Americans Ages 20-29 = 116 mL/min/1.73 sq.m. Ages 30-39 = 107 mL/min/1.73 sq.m. Ages 40-49 = 99 mL/min/1.73 sq.m. Ages 50-59 = 93 mL/min/1.73 sq.m. Ages 60-69 = 85 mL/min/1.73 sq.m. Ages 70+ = 75 mL/min/1.73 sq.m. Chronic Kidney Disease: Less than 60 mL/min/1.73 square meters End Stage Renal Disease: Less than 15 mL/min/1.73 square meters Performed By: #### B MP, GFR #### [address] [address] BMPon 09-17-2018 Calcium [Mass/Vol] 10.1 mg/dL Normal 8.4-10.2 [facility] ([place] Comment on above: Performed By: #### B MP, GFR #### [address] [address] Chloride [Moles/Vol] 101 mmol/L Normal 98-107 [facility] ([place] Comment on above: Performed By: #### B MP, GFR #### [address] [address] CO2 [Moles/Vol] 25 mmol/L Normal 23-31 [facility] ([place] Comment on above: Performed By: #### B MP, GFR #### [address] [address] Creatinine [Mass/Vol] 1.09 mg/dL High 0.55-1.02 [facility] ([place] Comment on above: Performed By: #### B MP, GFR #### [address] [address] Electrolyte Balance 10.0 mEq/L Normal [facility] ([place] Comment on above: Performed By: #### B MP, GFR #### [address] [address] Glucose [Mass/Vol] 119 mg/dL High 83-110 [facility] ([place] Comment on above: Performed By: #### B MP, GFR #### [address] [address] Potassium [Moles/Vol] 4.5 mmol/L Normal 3.5-5.1 [facility] ([place] Comment on above: Performed By: #### B MP, GFR #### [address] [address] Sodium [Moles/Vol] 136 mmol/L Normal 136-145 [facility] ([place] Comment on above: Performed By: #### B MP, GFR #### [address] [address] Urea nitrogen [Mass/Vol] 21 mg/dL High 7-18 [facility] ([place] Comment on above: Performed By: #### B MP, GFR #### [address] [address] Urea nitrogen/Creatinine [Mass ratio] 19 ratio Normal 7-27 [facility] ([place]) Comment on above: Performed By: #### B MP, GFR #### [address] [address] XR KNEE 1 OR 2 VIEWS RIGHTon 09-17-2018 XR KNEE 1 OR 2 VIEWS RIGHT ORIGINAL XR KNEE 1 OR 2 VIEWS RIGHT CLINICAL STATEMENT: Status Post Arthroplasty COMPARISON: None FINDINGS:2 images of the RIGHT knee demonstrate post prosthesis placement. There are postoperative changes to the soft tissues. No acute fracture is identified IMPRESSION:Post prosthesis placement Interpreted By: Carmela Ann MD Preliminary Report By: Carmela Ann MD Electronically Signed By: Carmela Ann MD Dictated Date: 09/17/2018 1:44:22 PM Prelim Date: 09/17/2018 1:44:22 PM Sign Date: 09/17/2018 1:49:05 PM Normal [facility] ([place]) .Auto Diffon 08-27-2018 Ammonia (P) [Mass/Vol] 0.80 10 3/mcL Normal 0.15-1.00 [facility] ([place]) Comment on above: Performed By: #### C JR RIDER, ANEU #### [address] [address] Basophils (Bld) [#/Vol] 0.10 10 3/mcL Normal 0.00-0.19 [facility] ([place]) Comment on above: Performed By: #### C BCJR, ANEU #### [address] [address] Basophils/100 WBC (Bld) 0.9 % Normal 0.0-2.5 [facility] ([place]) Comment on above: Performed By: #### C BC, JR, ANEU #### [address] [address] Eosinophils (Bld) [#/Vol] 0.10 10 3/mcL Normal 0.00-0.40 [facility] ([place]) Comment on above: Performed By: #### C BC, ADIFF, ANEU #### [address] [address] Eosinophils/100 WBC (Bld) 1.6 % Normal 0.0-7.0 [facility] ([place]) Comment on above: Performed By: #### C BC, ADIFF, ANEU #### [address] [address] Lymphocytes (Bld) [#/Vol] 2.10 10 3/mcL Normal 0.77-3.85 [facility] ([place]) Comment on above: Performed By: #### C BC, ADIFF, ANEU #### [address] [address] Lymphocytes/100 WBC (Bld) 24.4 % Normal 10.0-50.0 [facility] ([place]) Comment on above: Performed By: #### C JR RIDER, ANEU #### [place] [address] [address] Monocytes/100 WBC (Bld) 8.9 % Normal 1.7-13.0 [facility] ([place]) Comment on above: Performed By: #### C JR RIDER, ANEU #### [place] [address] [address] Neutrophils/100 WBC (Bld) 64.2 % Normal 37.0-80.0 [facility] ([place]) Comment on above: Performed By: #### C JR RIDER, ANEU #### [place] [address] [address] .GFRon 08-27-2018 GFR 66 ml/min/1.73sqm Normal [facility] ([place]) Comment on above: Result Comment: GFR Population mean for , Non- Americans Ages 20-29 = 116 mL/min/1.73 sq.m. Ages 30-39 = 107 mL/min/1.73 sq.m. Ages 40-49 = 99 mL/min/1.73 sq.m. Ages 50-59 = 93 mL/min/1.73 sq.m. Ages 60-69 = 85 mL/min/1.73 sq.m. Ages 70+ = 75 mL/min/1.73 sq.m. Chronic Kidney Disease: Less than 60 mL/min/1.73 square meters End Stage Renal Disease: Less than 15 mL/min/1.73 square meters Performed By: #### B MP, GFR #### [place] [address] GFR Non- 54 ml/min/1.73sqm Normal [facility] ([place]) Comment on above: Result Comment: GFR Population mean for , Non- Americans Ages 20-29 = 116 mL/min/1.73 sq.m. Ages 30-39 = 107 mL/min/1.73 sq.m. Ages 40-49 = 99 mL/min/1.73 sq.m. Ages 50-59 = 93 mL/min/1.73 sq.m. Ages 60-69 = 85 mL/min/1.73 sq.m. Ages 70+ = 75 mL/min/1.73 sq.m. Chronic Kidney Disease: Less than 60 mL/min/1.73 square meters End Stage Renal Disease: Less than 15 mL/min/1.73 square meters Performed By: #### B MP, GFR #### [address] [address] .NEUABSon 08-27-2018 Neutrophils (Bld) [#/Vol] 5.50 10 3/mcL Normal 2.85-6.16 [facility] ([place] Comment on above: Performed By: #### C TERESO, JR, ANEU #### [place] [address] [address] BMPon 08-27-2018 Calcium [Mass/Vol] 11.6 mg/dL High 8.4-10.2 [facility] ([place] Comment on above: Performed By: #### B MP, GFR #### [address] [address] Chloride [Moles/Vol] 100 mmol/L Normal 98-107 [facility] ([place] Comment on above: Performed By: #### B MP, GFR #### [address] [address] CO2 [Moles/Vol] 30 mmol/L Normal 23-31 [facility] ([place] Comment on above: Performed By: #### B MP, GFR #### [address] [address] Creatinine [Mass/Vol] 1.01 mg/dL Normal 0.55-1.02 [facility] ([place] Comment on above: Performed By: #### B MP, GFR #### [address] [address] Electrolyte Balance 9.0 mEq/L Normal [facility] ([place] Comment on above: Performed By: #### B MP, GFR #### [address] [address] Glucose [Mass/Vol] 97 mg/dL Normal 83-110 [facility] ([place] Comment on above: Performed By: #### B MP, GFR #### [address] [address] Potassium [Moles/Vol] 4.1 mmol/L Normal 3.5-5.1 [facility] ([place] Comment on above: Performed By: #### B MP, GFR #### [address] [address] Sodium [Moles/Vol] 139 mmol/L Normal 136-145 [facility] ([place] Comment on above: Performed By: #### B MP, GFR #### [address] [address] Urea nitrogen [Mass/Vol] 19 mg/dL High 7-18 [facility] ([place] Comment on above: Performed By: #### B MP, GFR #### [address] [address] Urea nitrogen/Creatinine [Mass ratio] 19 ratio Normal 7-27 [facility] ([place] Comment on above: Performed By: #### B MP, GFR #### [address] [address] CBCon 08-27-2018 Erythrocyte distribution width (RBC) [Ratio] 12.6 % Normal 11.5-14.5 [facility] ([place] Comment on above: Performed By: #### JR ABDULLAHI, ANEU #### [place] [address] [address] Hematocrit (Bld) [Volume fraction] 35.3 % Low 37.0-47.0 [facility] ([place] Comment on above: Performed By: #### JR ABDULLAHI, ANEU #### [place] [address] [address] Hemoglobin (Bld) [Mass/Vol] 12.5 G/dL Normal 12.0-16.0 [facility] ([place]) Comment on above: Performed By: #### JR ABDULLAHI, ANEU #### [place] [address] [address] MCH (RBC) [Entitic mass] 32.2 pg High 27.0-31.2 [facility] ([place] Comment on above: Performed By: #### JR ABDULLAHI, ANEU #### [address] [address] MCHC (RBC) [Mass/Vol] 35.3 G/dL Normal 33.0-37.0 [facility] ([place] Comment on above: Performed By: #### JR ABDULLAHI, ANEU #### [place] [address] [address] MCV (RBC) [Entitic vol] 91.2 fL Normal 80.0-94.0 [facility] ([place]) Comment on above: Performed By: #### JR ABDULLAHI, ANEU #### [place] [address] [address] Platelet mean volume (Bld) [Entitic vol] 8.2 fL Normal 7.4-10.4 [facility] ([place] Comment on above: Performed By: #### C JR RIDER, ANEU #### [address] [address] Platelets (Bld) [#/Vol] 323 10 3/mcL Normal 130-400 [facility] ([place] Comment on above: Performed By: #### JR ABDULLAHI, ANEU #### [address] [address] RBC (Bld) [#/Vol] 3.87 10 6/mcL Low 4.20-5.40 [facility] ([place] Comment on above: Performed By: #### JR ABDULLAHI, ANEU #### [address] [address] WBC (Bld) [#/Vol] 8.60 10 3/mcL Normal 4.60-10.80 [facility] ([place] Comment on above: Performed By: #### JR ABDULLAHI, ANEU #### [address] [address] [address] KNEE W/O CONTRAST RIGHTon 08-27-2018 CT KNEE W/O CONTRAST RIGHT ORIGINAL CT KNEE W/O CONTRAST RIGHT CLINICAL STATEMENT: UNILATERAL PRIMARY OSTEOARTHRITIS RT KNEE, VARUS DEFORMITY RT KNEE COMPARISON: None FINDINGS: This exam was performed according to our departmental dose-optimization program which includes automated exposure control, adjustment of the mA and/or kVp according to patient size and/or use of iterative reconstruction technique where applicable. Survey images of the RIGHT hip demonstrate mild degenerative changes. There is no acute osseous and amount. Severe medial tibiofemoral compartment joint space loss and spurring is identified. There are prominent lateral tibiofemoral compartment spurs. Patellofemoral compartment joint space loss and spurring noted. There are loose intra-articular bodies. The largest loose body near the lateral tibial spine is 6 mm. A trace joint effusion is identified. Survey images of the RIGHT ankle obtained. There is no fracture. IMPRESSION: Severe degenerative changes in the RIGHT knee with loose intra-articular bodies Interpreted By: Santhosh Andrade MD Preliminary Report By: Santhosh Andrade MD Electronically Signed By: Santhosh Andrade MD Dictated Date: 08/27/2018 3:12:21 PM Prelim Date: 08/27/2018 3:12:21 PM Sign Date: 08/27/2018 3:14:38 PM Normal [facility] ([place]) OVon 05-18-2017 [facility] Office Visit (UCTR) YAJAIRA BUNN ([id number]) 1945 FDate Time Provider Department05/18/17 11:00 AM [facility] During your visit today, we recorded the following information about you: Temperature Pulse Respiration Blood pressure 98.4 degrees 100/minute 18/minute 132/66 Weight 79.7 kgRambo Saucedo MD 05/18/2017 11:58 AM SignedPatient presents with:ST, chest congestion, cough and fever: x 3 daysHPI:Feeling sick for 3-4 days. Feels worse today. All household members have beensick also.Positive symptoms: Cough, Sore throat, Feverish, Chest tightness, occasionalRhinorrhea, post-nasal drainageNegative symptoms: Shortness of breath, Vomiting, Diarrhea,OTC: Cold MedicineNo Hx of asthma or smoking.PAST MEDICAL HISTORYDiagnosis Date- History of hyperthyroidism- HypertensionPAST SURGICAL HISTORYProcedure Laterality Date- TOTAL HIP JOINT REPLACEMENT Left 2011 Fx repair then replacementMEDICATIONS :Current Outpatient Prescriptions:lisinopr il-hydrochlorothiazide (PRINZIDE,ZESTORETIC) 10-12.5 mg per tablet Take1 tablet by mouth once daily.aspirin 81 mg chewable tablet Take 81 mg by mouth once daily.omeprazole magnesium(PRILOSEC OTC 20 MG TAB) Take one(1) tablet daily as neededCALCIUM CITRATE MALATE-VIT D3 250 MG-100 UNIT TAB Take two(2) tablets twicedaily.gluc hcl/csana/gly-am-gly,m x/c(COSAMIN DS 500 MG-400 MG CAP) Take one(1) tabletdaily.MULTIVITAM IN CAP Take one(1) capsule daily.naproxen sodium(ALEVE 220 MG TAB) as neededvalsartan/hydroc hlorothiazide(DIOVAN HCT 160 MG-12.5 MG TAB) Take one(1) tabletdaily.No current facility-administered medications for this visit.ALLERGIES:ALLERG IESNo Known AllergiesVITALS:BP 132/66 Pulse 100 Temp 36.9 ?C (98.4 ?F) (Tympanic) Resp 18 Wt 79.7kg (175 lb 12.8 oz) SpO2 97%PHYSICAL EXAM: GEN: mildly ill appearing HEENT: PERRL, EOMI, conjunctiva clear Ears: canals clear, TMs without erythema, bulge, or effusion Sinuses: non-tender frontal sinus, non-tender maxillary sinuses Throat: moist mucous membranes, mild erythema, no exudate Neck: supple, no thyromegaly, no lymphadenopathy HEART: regular rate and rhythm, no murmurs LUNGS: Wheezy and raspy cough, faint right lower lung field wheezes, noincreased WOBASSESSMENT/PLAN:1. URI with cough and congestion - ICD9: 465.9, ICD10: J06.9- Discussed viral etiology and rationale for treatment.- Symptomatic treatment with prn analgesia and cold medicine.- BENZONATATE 100 MG CAPSULESeek re-evaluation for symptoms of pneumonia such as worsening cough, fever,chest pain, shortness of breath.Rambo Saucedo, MDReferring Provider: SELF [[id number]]Allergies As of Date: 05/18/2017(No Known Allergies)Date Reviewed: 05/18/2017Reviewed by: Hoa Dorsey LPN - Fully AssessedReason for Visit: ST, chest congestion, cough and fever [Other] Cmt: x 3 daysPrimary Visit Diagnosis:URI with cough and congestion [J06.9]Order(s):benzon atate (TESSALON PERLE) 100 mg capsuleTake 1 capsule by mouth three times daily as needed for up to 15 days.Disp: 30 capsuleRfl: 0Prescriptions as of 05/18/2017 Sig: LISINOPRIL 10 MG-HYDROCHLOROT* Take 1 tablet by mouth once d* ASPIRIN 81 MG CHEWABLE TABLET Take 81 mg by mouth once rudi* PRILOSEC OTC 20 MG TABLET,DEL* Take one(1) tablet daily as n* CALCIUM CITRATE MALATE-VITAMI* Take two(2) tablets twice yomi* COSAMIN DS 500 MG-400 MG CAPS* Take one(1) tablet daily. MULTIVITAMIN CAPSULE Take one(1) capsule daily. ALEVE 220 MG TABLET as needed BENZONATATE 100 MG CAPSULE Take 1 capsule by mouth three*Medication notes this encounter DIOVAN HCT 160 MG-12.5 MG TABLET >> Hoa Dorsey LPN 05/18/2017 11:30 AM >> HOA DORSEY LPN [facility] May 18, 2017 11:30 AM Not TakingProblem List As Of Date 05/18/2017 Noted Resolved TOX DIF GOITER NO CRISIS [E05.00] INVALID FOR*Prescriptions ordered this encounter Disp Refills Start End BENZONATATE 100 MG CAPSULE 30 c* 0 05/18/2017 06/02/2017 Route: ORAL Sig: Take 1 capsule by mouth three times daily as needed for up to 15 days.Medications Discontinued During This Encounter valsartan/hydrochlorot hiazide(DIOVAN* 0 11/20/2007 05/18/2017 Class: Historical Med Route: ORAL Sig: Take one(1) tablet daily. Disc: Reason for discontinue is not on file. Status:Closed by RAMBO SAUCEDO MD on 05/18/17 Normal [facility] PROGRESSon 05-18-2017 PROGRESS HNO ID: [id number]: Rambo Rojaservice: (none)Author Type: PhysicianType: Progress NotesFiled: 05/18/2017 11:58 AMNote Text:Patient presents with:ST, chest congestion, cough and fever: x 3 daysHPI:Feeling sick for 3-4 days. Feels worse today. All household members havebeen sick also.Positive symptoms: Cough, Sore throat, Feverish, Chest tightness,occasional Rhinorrhea, post-nasal drainageNegative symptoms: Shortness of breath, Vomiting, Diarrhea,OTC: Cold MedicineNo Hx of asthma or smoking.PAST MEDICAL HISTORYDiagnosis Date- History of hyperthyroidism- HypertensionPAST SURGICAL HISTORYProcedure Laterality Date- TOTAL HIP JOINT REPLACEMENT Left 2011 Fx repair then replacementMEDICATIONS :Current Outpatient Prescriptions:lisinopr il-hydrochlorothiazide (PRINZIDE,ZESTORETIC) 10-12.5 mg per tabletTake 1 tablet by mouth once daily.aspirin 81 mg chewable tablet Take 81 mg by mouth once daily.omeprazole magnesium(PRILOSEC OTC 20 MG TAB) Take one(1) tablet daily asneededCALCIUM CITRATE MALATE-VIT D3 250 MG-100 UNIT TAB Take two(2) tabletstwice daily.gluc hcl/csana/gly-am-gly,m x/c(COSAMIN DS 500 MG-400 MG CAP) Take one(1)tablet daily.MULTIVITAMIN CAP Take one(1) capsule daily.naproxen sodium(ALEVE 220 MG TAB) as neededvalsartan/hydroc hlorothiazide(DIOVAN HCT 160 MG-12.5 MG TAB) Take one(1)tablet daily.No current facility-administered medications for this visit.ALLERGIES:ALLERG IESNo Known AllergiesVITALS:BP 132/66 Pulse 100 Temp 36.9 ?C (98.4 ?F) (Tympanic) Resp 18 Wt79.7 kg (175 lb 12.8 oz) SpO2 97%PHYSICAL EXAM: GEN: mildly ill appearing HEENT: PERRL, EOMI, conjunctiva clear Ears: canals clear, TMs without erythema, bulge, or effusion Sinuses: non-tender frontal sinus, non-tender maxillary sinuses Throat: moist mucous membranes, mild erythema, no exudate Neck: supple, no thyromegaly, no lymphadenopathy HEART: regular rate and rhythm, no murmurs LUNGS: Wheezy and raspy cough, faint right lower lung field wheezes,no increased WOBASSESSMENT/PLAN:1. URI with cough and congestion - ICD9: 465.9, ICD10: J06.9- Discussed viral etiology and rationale for treatment.- Symptomatic treatment with prn analgesia and cold medicine.- BENZONATATE 100 MG CAPSULESeek re-evaluation for symptoms of pneumonia such as worsening cough,fever, chest pain, shortness of breath.Rambo Saucedo MD [facility] Vital Signs Date Time Vital Sign Value Performing Clinician Godfrey young 11-20-2024 12:58-0400 Body height 152.4 cm Se Bryan MD Work Phone: [facility] 11-20-2024 12:58-0400 Body mass index (BMI) [Ratio] 33.5 kg/m2 Se Bryan MD Work Phone: [facility] 11-20-2024 12:58-0400 Body temperature 97.6 [degF] Se Bryan MD Work Phone: [facility] 11-20-2024 12:58-0400 Body weight 78.01 kg Se Bryan MD Work Phone: [facility] 11-20-2024 12:58-0400 Diastolic blood pressure 90 mm[Hg] Se Bryan MD Work Phone: [facility] 11-20-2024 12:58-0400 Heart rate 72 /min Se Bryan MD Work Phone: [facility] 11-20-2024 12:58-0400 Respiratory rate 18 /min Se Bryan MD Work Phone: [facility] 11-20-2024 12:58-0400 SaO2% (BldA) [Mass fraction] 99 % Se Bryan MD Work Phone: [facility] 11-20-2024 12:58-0400 Systolic blood pressure 170 mm[Hg] Se Bryan MD Work Phone: [facility] 10-24-2024 15:21-0400 Body height 152.4 cm Se Bryan MD Work Phone: [facility] 10-24-2024 15:21-0400 Body mass index (BMI) [Ratio] 33.4 kg/m2 Se Bryan MD Work Phone: [facility] 10-24-2024 15:21-0400 Body weight 77.56 kg Se Bryan MD Work Phone: [facility] 10-24-2024 15:21-0400 Diastolic blood pressure 76 mm[Hg] Se Bryan MD Work Phone: [facility] 10-24-2024 15:21-0400 Heart rate 82 /min Se Bryan MD Work Phone: [facility] 10-24-2024 15:21-0400 SaO2% (BldA) [Mass fraction] 98 % Se Bryan MD Work Phone: [facility] 10-24-2024 15:21-0400 Systolic blood pressure 151 mm[Hg] Se Bryan MD Work Phone: [facility] 08-28-2024 21:00-0400 Diastolic blood pressure 70 mm[Hg] Se Bryan MD Work Phone: [facility] 08-28-2024 21:00-0400 Heart rate 79 /min Se Bryan MD Work Phone: [facility] 08-28-2024 21:00-0400 Respiratory rate 22 /min Se Bryan MD Work Phone: [facility] 08-28-2024 21:00-0400 SaO2% (BldA) [Mass fraction] 99 % Se Bryan MD Work Phone: [facility] 08-28-2024 21:00-0400 Systolic blood pressure 158 mm[Hg] Se Bryan MD Work Phone: [facility] 08-28-2024 20:17-0400 Body temperature 97.7 [degF] Se Bryan MD Work Phone: [facility] 08-28-2024 17:16-0400 Body height 152.4 cm Se Bryan MD Work Phone: [facility] 08-28-2024 17:16-0400 Body mass index (BMI) [Ratio] 32.8 kg/m2 Se Bryan MD Work Phone: [phone] [place] [address] 08-28-2024 17:16-0400 Body weight 76.24 kg Se Bryan MD Work Phone: [facility] 08-26-2024 13:49-0400 Body height 152.4 cm Se Bryan MD Work Phone: [facility] 08-26-2024 13:49-0400 Body mass index (BMI) [Ratio] 33 kg/m2 Se Bryan MD Work Phone: [facility] 08-26-2024 13:49-0400 Body weight 76.65 kg Se Bryan MD Work Phone: [facility] 08-26-2024 13:49-0400 Diastolic blood pressure 80 mm[Hg] Se Bryan MD Work Phone: [facility] 08-26-2024 13:49-0400 Heart rate 85 /min Se Bryan MD Work Phone: [facility] 08-26-2024 13:49-0400 SaO2% (BldA) [Mass fraction] 96 % Se Bryan MD Work Phone: [facility] 08-26-2024 13:49-0400 Systolic blood pressure 144 mm[Hg] Se Bryan MD Work Phone: [facility] 02-22-2023 13:06-0500 Body height 152.4 cm [facility] 02-22-2023 13:06-0500 Body mass index (BMI) [Ratio] 31.2 kg/m2 [facility] 02-22-2023 13:06-0500 Body temperature 97.3 [degF] [facility] 02-22-2023 13:06-0500 Body weight 72.57 kg [facility] 02-22-2023 13:06-0500 Diastolic blood pressure 62 mm[Hg] [facility] 02-22-2023 13:06-0500 Heart rate 83 /min [facility] 02-22-2023 13:06-0500 Respiratory rate 16 /min [facility] 02-22-2023 13:06-0500 SaO2% (BldA) [Mass fraction] 97 % [facility] 02-22-2023 13:06-0500 Systolic blood pressure 157 mm[Hg] [facility] 10-20-2022 11:16-0400 Body height 152.[address] Danny Jeronimo Work Phone: [facility] 10-20-2022 11:16-0400 Body mass index (BMI) [Ratio] 33 kg/m2 Dr. Danny Jeronimo Work Phone: [facility] 10-20-2022 11:16-0400 Body temperature 98.3 [degF] Dr. Danny Jeronimo Work Phone: [facility] 10-20-2022 11:16-0400 Body weight 76.[address] Danny Jeronimo Work Phone: [facility] 10-20-2022 11:16-0400 Diastolic blood pressure 70 mm[Hg] Dr. Danny Jeronimo Work Phone: [facility] 10-20-2022 11:16-0400 Heart rate 74 /min Dr. Danny Jeronimo Work Phone: [facility] 10-20-2022 11:16-0400 Respiratory rate 18 /min Dr. Danny Jeronimo Work Phone: [facility] 10-20-2022 11:16-0400 SaO2% (BldA) [Mass fraction] 98 % Dr. Danny Jeronimo Work Phone: [facility] 10-20-2022 11:16-0400 Systolic blood pressure 146 mm[Hg] Dr. Danny Jeronimo Work Phone: [facility] 08-24-2022 12:54-0400 Body height 152.4 cm [facility] 08-24-2022 12:54-0400 Body mass index (BMI) [Ratio] 32.2 kg/m2 [facility] 08-24-2022 12:54-0400 Body temperature 97.9 [degF] [facility] 08-24-2022 12:54-0400 Body weight 74.84 kg [facility] 08-24-2022 12:54-0400 Diastolic blood pressure 6 mm[Hg] [facility] 08-24-2022 12:54-0400 Heart rate 76 /min [facility] 08-24-2022 12:54-0400 Respiratory rate 16 /min [facility] 08-24-2022 12:54-0400 SaO2% (BldA) [Mass fraction] 96 % [facility] 08-24-2022 12:54-0400 Systolic blood pressure 156 mm[Hg] [facility] 02-23-2022 12:56-0500 Body height 152.4 cm [facility] 02-23-2022 12:56-0500 Body mass index (BMI) [Ratio] 32.2 kg/m2 [facility] 02-23-2022 12:56-0500 Body temperature 97 [degF] [facility] 02-23-2022 12:56-0500 Body weight 74.84 kg [facility] 02-23-2022 12:56-0500 Diastolic blood pressure 54 mm[Hg] [facility] 02-23-2022 12:56-0500 Heart rate 84 /min [facility] 02-23-2022 12:56-0500 Respiratory rate 16 /min [facility] 02-23-2022 12:56-0500 SaO2% (BldA) [Mass fraction] 96 % [facility] 02-23-2022 12:56-0500 Systolic blood pressure 144 mm[Hg] [facility] 10-26-2021 13:27-0400 Body height 152.[address] Jenaro Loo Work Phone: [facility] Work Phone: 10-22-2021 11:34-0400 Body mass index (BMI) [Ratio] 32.9 kg/m2 Dr. Jenaro Loo Work Phone: [facility] Work Phone: 10-22-2021 11:34-0400 Body temperature 96.6 [degF] Dr. Jenaro Loo Work Phone: [facility] Work Phone: 10-22-2021 11:34-0400 Body weight 76.[address] Jenaro Loo Work Phone: [facility] Work Phone: 10-22-2021 11:34-0400 Diastolic blood pressure 69 mm[Hg] Dr. Jenaro Loo Work Phone: [facility] Work Phone: 10-22-2021 11:34-0400 Heart rate 83 /min Dr. Jenaro Loo Work Phone: [facility] Work Phone: 10-22-2021 11:34-0400 Respiratory rate 16 /min Dr. Jenaro Loo Work Phone: [facility] Work Phone: 10-22-2021 11:34-0400 SaO2% (BldA) [Mass fraction] 93 % Dr. Jenaro Loo Work Phone: [facility] Work Phone: 10-22-2021 11:34-0400 Systolic blood pressure 123 mm[Hg] Dr. Jenaro Loo Work Phone: [facility] Work Phone: 08-18-2021 12:48-0400 Body height 152.4 cm [facility] Work Phone: 08-18-2021 12:48-0400 Body mass index (BMI) [Ratio] 31.2 kg/m2 [facility] Work Phone: 08-18-2021 12:48-0400 Body temperature 97.9 [degF] [facility] Work Phone: 08-18-2021 12:48-0400 Body weight 72.57 kg [facility] Work Phone: 08-18-2021 12:48-0400 Diastolic blood pressure 54 mm[Hg] [facility] Work Phone: 08-18-2021 12:48-0400 Heart rate 79 /min [facility] Work Phone: 08-18-2021 12:48-0400 Respiratory rate 14 /min [facility] Work Phone: 08-18-2021 12:48-0400 SaO2% (BldA) [Mass fraction] 98 % [facility] Work Phone: 08-18-2021 12:48-0400 Systolic blood pressure 132 mm[Hg] [facility] Work Phone: Encounters Encounter Date Encounter Type Care Provider Facility Start: 01-03-2025 ambulatory [facility] Facility:[facility] Start: [facility] Start: 12-03-2024 ambulatory [facility] Facility:[facility] Start: 11-20-2024 End: 11-20-[address] Je Burnett MD -[facility] Work Phone: Start: 11-20-2024 End: 11-20-2024 ambulatory Se Bryan MD Work Phone: -[facility] Start: 11-15-2024 End: 11-15-2024 ambulatory Se Bryan MD Work Phone: -Laboratory Start: 11-15-2024 End: 11-15-[address] Guicho Quezada MD -Laboratory Work Phone: Start: 11-15-2024 End: 11-15-2024 ambulatory Chalon Randi Facility:[facility] Start: 11-05-2024 End: 11-05-2024 ambulatory Se Bryan MD Work Phone: -Nuclear Medicine [facility] Start: 11-05-2024 End: 11-05-2024 Patient encounter procedure Kristie Montes DIRECTOR [employer] SERVICES-C -Nuclear Medicine [facility] Work Phone: Start: 11-04-2024 End: 11-05-2024 ambulatory Se Bryan MD Work Phone: -Ultrasound [facility] Start: 11-04-2024 End: 11-04-[address] Guicho Quezada MD -Ultrasound [facility] Work Phone: Start: 11-04-2024 End: 11-04-2024 ambulatory Chalon Randi Facility:[facility] Start: 10-24-2024 End: 10-24-[address] Guicho Quezada MD -[facility] Work Phone: Start: 10-24-2024 End: 10-24-2024 ambulatory Se Bryan MD Work Phone: -[facility] Start: 10-11-2024 End: 10-11-2024 ambulatory Se Bryan MD Work Phone: -Laboratory [place] Start: 10-11-2024 End: 10-11-[address] Guicho Quezada MD -Laboratory [place] Work Phone: Start: 10-11-2024 End: 10-11-2024 ambulatory [facility] Facility:[facility] Start: 08-28-2024 End: 08-28-2024 Emergency department patient visit Se Bryan MD Work Phone: -Emergency Department Work Phone: Start: 08-26-2024 End: 08-26-[address] Guicho Quezada MD -[facility] Work Phone: Start: 08-26-2024 End: 08-26-2024 ambulatory Se Bryan MD Work Phone: -[facility] Start: 08-26-2024 End: 08-26-2024 ambulatory Chalon Randi Facility:[facility] Start: 02-23-2024 End: 02-23-2024 ambulatory Chalon Randi Facility:[facility] Start: 12-26-2023 End: 12-26-2023 ambulatory Chalon Randi Facility:[facility] Start: 06-20-2023 Non-patient / Non-visit DO Katie Singleton Work Phone: [facility] Start: 06-20-2023 End: 06-20-2023 ambulatory DO Katie Singleton Work Phone: [facility] Work Phone: Start: 06-20-2023 End: 06-20-2023 Patient encounter procedure DO Katie Singleton Work Phone: [facility]-Pulmonary Services/Neurology Work Phone: Start: 04-11-2023 End: 04-11-2023 Patient encounter procedure DO Katie Singleton Work Phone: [facility] Work Phone: Start: 02-22-2023 End: 02-22-2023 ambulatory [facility] Work Phone: Start: 02-22-2023 End: 02-22-2023 Patient encounter procedure [facility]-Medical Out Work Phone: Start: 12-05-2022 End: 12-05-[address] Danny Jeronimo Work Phone: [facility] Work Phone: Start: 12-05-2022 End: 12-05-[address] Danny Jeronimo Work Phone: [facility]-Outpatient Breast Imaging Work Phone: Start: 10-20-2022 End: 10-20-[address] Danny Jeronimo Work Phone: [facility] Endocrinology Work Phone: Start: 10-11-2022 End: 10-11-[address] Danny Jeronimo Work Phone: [facility] Work Phone: Start: 10-11-2022 End: 10-11-[address] Danny Jeronimo Work Phone: [facility]-Laboratory Work Phone: Start: 09-28-2022 Non-patient / Non-visit Dr. Danny Jeronimo Work Phone: [facility] Start: 09-28-2022 End: 09-28-[address] Danny Jeronimo Work Phone: [facility] Work Phone: Start: 09-28-2022 End: 09-28-[address] Danny Jeronimo Work Phone: [facility]-Pulmonary Services/Neurology Work Phone: Start: 08-24-2022 End: 08-24-2022 ambulatory [facility] Work Phone: Start: 08-24-2022 End: 08-24-2022 Patient encounter procedure [facility]-Medical Out Work Phone: Start: 03-31-2022 End: 03-31-2022 ambulatory [facility] Work Phone: Start: 03-31-2022 End: 03-31-2022 Patient encounter procedure [facility]-Laboratory, [place] Start: 02-23-2022 End: 02-23-2022 ambulatory [facility] Work Phone: Start: 02-23-2022 End: 02-23-2022 Patient encounter procedure [facility] Out Start: 10-26-2021 End: 10-26-[address] Jenaro Loo Work Phone: [facility] Work Phone: Start: 10-26-2021 End: 10-26-[address] Jenaro Loo Work Phone: [facility]-Outpatient Bone Densitometry Start: 10-22-2021 End: 10-22-[address] Jenaro Loo Work Phone: [facility] Endocrinology Start: 09-24-2021 End: 09-24-2021 [facility] [place] Start: 08-18-2021 End: 08-18-2021 Patient encounter procedure [facility] Start: 05-18-2017 End: 05-18-2017 Ambulatory [facility] Procedures Date Procedure Procedure Detail Performing Clinician Start: 11-15-2024 Parathyroid hormone measurement Se Bryan MD Work Phone: Start: 11-05-2024 Radioisotope scan of parathyroid Se Bryan MD Work Phone: Start: 11-04-2024 US scan of thyroid Paige Bryan MD Work Phone: Start: 08-28-2024 Urnls dip stick/tabl et reagent auto microscopy Se Bryan MD Work Phone: Start: 08-28-2024 Estimated creatinine clearance Se Bryan MD Work Phone: Start: 08-27-2024 Vitamin D, 25-hydrox y measurement Se Bryan MD Work Phone: Comment on above: Vitamin D StatusDefi ciency: <20 ng/mL (50nmol/L)Insufficiency: 20-30 ng/mL (50-75 nmol/L)Sufficiency: 30-100 ng/mL (75-250 nmol/L)Toxicity: >100 ng/mL (>250 nmol/L) Start: 12-05-2022 Screening mammography Start: 08-30-2022 Dual energy X-ray absorptiometry Dr. Jenaro Loo Work Phone: Start: 10-26-2021 Screening mammography German Loo Work Phone: Plan of Treatment Date Care Activity Detail Author Start: 12-05-2022 Screening mammography SCRN MAMM (CAD)W/OMEGA BILAT [facility] Basic metabolic 2008 panel with ionized calcium - Serum or Plasma [facility] Cobalamin (Vitamin B 12) [Mass/volume] in Serum or Plasma [facility] Ferritin [Mass/volum e] in Serum or Plasma [facility] Patient Education Hypercalcemia Dc [facility] Work Phone: Vitamin D, 25-hydrox y measurement [facility] Work Phone: Vitamin D, 25-hydrox y measurement General acute hospital Work Phone: [facility] Immunizations Immunization Date Immunization Notes Care Provider [facility] 01-14-2021 Covid (Moderna) [facility] 05-25-2020 Covid ([facility] 04-27-2020 Covid ([facility]) [facility] Payers Date Payer Category Payer Self-pay [id number] 2023 Unknown [id number] Medicare [id number] Unknown [id number] 2.16.8 [id number] Unknown [id number] 2.16.8 [id number] Unknown [id number] 2.16.8 [id number] Unknown [id number] 2.16.8 [id number] Unknown [id number] 2.16.8 [id number] Unknown [id number] 2.16.8 [id number] Unknown [id number] 2.16.8 [id number] Unknown [id number] 2.16.8 [id number] Unknown [id number] 2.16.8 [id number] Unknown [id number] 2.16.8 [id number] Unknown [id number] 2.16.8 [id number] Unknown [id number] 2.16.8 [id number] Unknown [id number] 2.16.8 [id number] Unknown [id number] 2.16.8 [id number] Social History Date Type Detail Facility Start: 10-31-2019 End: 04-11-2023 Tobacco smoking status NHIS Unknown if ever smoked [facility] Start: 08-18-2020 Rare [facility] Start: 08-18-2020 None [facility] Start: 08-18-2020 Homeless [facility] Start: 08-18-2020 Non-smoker [facility] Start: 1945 Sex Assigned At Female W [facility] Start: 01-24-2024 End: 08-28-2024 Tobacco smoking status NHIS Ex-smoker (finding) [facility] Sex Female [facility] Mental Status Date Assessment Result Facility 08-28-2024 Cognitive function Level Of Cons ciousness Awake;Alert;Appropriate;Follow s Commands [facility] Work Phone: 02-22-2023 Cognitive function Voice/Name [facility] Work Phone: 08-24-2022 Cognitive function Awake;Alert;A ppropriate;Follow s Commands [facility] Work Phone: 02-23-2022 Cognitive function Voice/Name [facility] Work Phone: 08-18-2021 Cognitive function Voice/Name [facility] Work Phone: Clinical Notes 09-28-2022 to 11-20-2024 Note Date & Type Note Facility 11-20-2024 Progress note [facility] 11-20-2024 Progress note Note Date/Time November 20, 2024 2:24pm [facility] [address] [place] [address] OFFICE VISIT Date of Service: 11/20/24 MR#: [id number] Acct: [id number] Name: YAJAIRA BUNN Rep #: [id number] : 1945 Provider: Dr. Jh Burnett MD Age/Sex: 79/F Location: [facility] Status: Signed Intake Vital Signs 10/24/24 15:21 11/20/24 12:58 Height 5 ft 5 ft Weight: 171 lb 172 lb BMI 33.4 33.5 BP 151/76 H 170/90 H Blood Pressure Location Lt brachial Rt brachial Position Sitting Sitting Respiration 18 Pulse 82 72 Pulse Source Monitor Monitor Temp 97.6 F L Temp Source Temporal Pulse Oximetry (%) 98 99 Oxygen Delivery Method room air room air Intake Visit Reasons: HYPERPARATHYROIDISM Chief Complaint: hyperparathyroidism Is patient in pain?: No Allergies No Known Allergies Allergy (Verified 11/20/24 12:59) Medications ?Medication ?Instructions ?Recorded ?Confirmed ?Type omeprazole magnesium 20 mg 20 mg PO DAILY 05/20/17 History tablet,delayed release aspirin 81 mg chewable tablet 81 mg PO QDAY 08/17/17 0 11/20/24 History ferrous sulfate 325 mg (65 mg 325 mg PO DAILY 10/23/20 11/20/24 History iron) tablet (FeroSul) latanoprost 0.005 % eye drops 1 ml ophthalmic (eye) DA ROSY 10/23/20 11/20/24 History lisinopril 20 mg tablet 20 mg PO DAILY 10/23/2010/29 History simvastatin 20 mg tablet 20 mg PO DAILY 10/23/2010/29 History vit C 250 mg-vit E 90 mg-zinc 40 1 tab PO BID 08/18/21 11/20/24 History mg-copper 1 [id number] capsule (PreserVision AREDS-2) denosumab 60 mg/mL subcutaneous 60 mg subcut [id number] #1 mL 10/20/22 11/20/24 Rx syringe (Prolia) cholecalciferol (vitamin D3) 25 50 mcg PO QDAY 5 11/20/24 History mcg (1,000 unit) capsule cinacalcet 30 mg tablet 30 mg PO QDAY #30 tabs 10/1111/20/24 Rx Have you fallen in the past year?: No PFSH Medical History Vitamin D deficiency Abnormal mammogram of right breast Heart murmur Acid reflux Arthritis HTN (hypertension) Surgical History H/O colonoscopy Ankle fracture History of hip surgery Family History Grandmother Breast cancer Social History household members: spouse Smoking Status: Former smoker alcohol intake: current alcohol intake frequency: holidays/special occasions only HPI HPI HPI: The patient is a 79-year-old female with a history of hyperparathyroidism, presenting for evaluation and management. The patient reports a history of hyperparathyroidism for approximately 5 years, initially identified by Dr. Jenaro Conroy at [facility] due to elevated calcium levels exceeding 10mg/dL. She was subsequently referred to Dr. Quezada for further evaluation and management. Retrospective review of calcium levels reveals hypercalcemia dating back to 2011, with a sustained upward trend since 2016. The patient denies any symptoms associated with hypercalcemia and has not required medication to managecalcium levels until recently. Approximately one month ago, she was prescribed cinacalcet by Dr. Quezada following a serum calcium level of 13.7 mg/dL, which later decreased to 12 mg/dL. She denies any history of dehydration during this period, noting consistent hydration with regular water intake. The patient has a history of osteopenia, confirmed by DEXA scans in 2019 and 2021. She denies a diagnosis of osteoporosis. In June 2010, she sustained a femurfracture, which failed to heal after 2-3 surgeries, necessitating a hip replacement in 2011. She denies any other fractures since high school, when she fractured her ankle in a fall from a horse. She has been receiving Prolia injections since 2021 for hypercalcemia management and has not undergone a DEXA scan since initiating this treatment. She denies any history of nephrolithiasis. The patient denies any symptoms suggestive of thyroid pathology, including dysphagia, dry cough, or changes in voice. She reports well-controlled hypertension and gastroesophageal reflux disease (GERD), managed with a stable dose of omeprazole. She denies any difficulty concentrating, dental issues, or nail abnormalities. She also denies any muscle weakness, particularly in large muscle groups, and reports no issues with constipation, maintaining a high-fiberdiet. Her dietary calcium intake is minimal, with occasional consumption of ice cream, cheese, and yogurt. Patient's current labs are calcium: 11 mg/dL (11/15/2024) range of 10.5-13.7 extending from 2019- present, Vitamin D: 64 ng/mL (08/27/2024), Ionized calcium: [Value]mg/dL [date], PTH: 249 pg/mL (11/15/2024) range of 137.7-303 extending from 2019 - present, Phosphorus: [Value] [date] Current medications include: Cinacalcet and Prolia. Imaging has been done thyroid ultrasound 11/04/2024 showing a right lobe measuring 3.7 x 1.6 x 1.7 cm and a left lobe measuring 3.3 x 1.5 x 1.3 cm. A 0.6 cm TI-RADS 4 nodule was described on the patient's right side while a 0.3 cm TI-RADS 4 nodule was described on the patient's left side. Radiology made additional mention of a 1 x 0.6 x 0.3 cm parathyroid candidate on the right while he also noted the presence of a 0.8 x 0.5 x 0.4 cm lesion possibly representing a parathyroid on the left side. Lastly they describe the presence of a hypoechoic structure measuring 2.2 x 1.1 x 1.0 cm inferior to the left pole for which biopsy was recommended. Patient then completed parathyroid scan with sestamibi on 11/05/2024 which is suggestive of a left inferior parathyroid. Patient has had DEXA imaging in 2021 osteopenia. Patient has not had renal imaging. ROS General General: No weight change, appetite, fatigue, colon cancer, breast cancer or weakness HEENT HEENT: No difficulty swallowing, eye injury, eye surgery, swollen glands or hoarseness Endo Endocrine: No thyroid disease, diabetes mellitus, thyroid cancer, Hair loss, heat intolerance or cold intolerance Skin Skin: No rash or changing moles Musc Musculoskeletal: Yes arthritis; No back problems, rheumatoid arthritis, gout or joint pain Cardio Cardiovascular: Yes high blood pressure; No murmur, pacemaker, heart disease, atrial fibrillation, heart attack, heart stent, palpitations, shortness of breath with exertion or chest pain Psych Psychiatric: No depression, anxiety or hearing voices Resp Respiratory: No shortness of breath, No sleep apnea, No cough, No COPD, No asthma, No emphysema and No wheezing Gastro Gastrointestinal: No abdominal pain, No nausea or vomiting, No diarrhea, No constipation, No blood in stool, No acid reflux, No hemorrhoids, No ulcers, No gallbladder problem and No black,tarry stools Soy Hematologic: No blood thinners, No blood disorders, No bleeding, No anemia and No blood clots Neuro Neurologic: Yes numbness, Yes tingling and No weakness Exam Const General: cooperative, comfortable and no acute distress Orientation: alert, awake and oriented x3 Neck Other: Supple, no thyromegaly or thyroid nodularity noted. No tenderness. No cervical lymphadenopathy appreciated. The ultrasound I identify a lobulated border of a hypoechoic structure inferior to the left inferior pole of the thyroid measuring 2.1 x 1.1 x 0.7 cm. Assessment and Plan Assessment and Plan (1) Primary hyperparathyroidism: Status: Chronic Comment: Patient is 79-year-old female diagnosed with primary hyperparathyroidism who is initially reluctant to undergo surgery, however, her calcium and PTH have continued to rise. She was initially placed on Prolia for protection of her skeletal mass but recently required addition of Cinacalcet after emergency evaluation for serum calcium of 13.7. Patient acknowledged at least a 5-year history with this diagnosis, however, in my independent review of her records there are elevated calciums dating back to 2011. I shared with Mrs. Bunn that I agreed with the diagnosis of primary hyperparathyroidism and went on to describe the surgical indications that include evidence of bone demineralization with her densitometry showing osteopenia and her serum calcium greater than 1 mg/dL over the range of normal. Interestingly I do not believe we can attribute patient's femur fracture to this disease process as densitometry obtained 1 year prior to her accident showed her density to be normal. Patient denies a history of nephrolithiasis and has never undergone renal imaging, but in the absence of symptoms and the presence of these other surgical indications I believe it is prudent to proceed without. I went on to discuss etiologies for primary hyperparathyroidism and the use of localization studies for identifying candidate adenomas. I shared that if Mrs. Bunn's particular case her results were particularly favorable and that her ultrasound and subsequent parathyroid scan: Localized to the left inferior position. I went on to discuss my strong suspicion that patient's 2.2 cm hypoechoic structure posterior to the left inferior pole of the thyroid actually represents her parathyroid adenoma and I would not recommend biopsying this structure out of concern for seeding the neck with parathyroid cells. With colocalization I stated we could offer a minimally invasive parathyroidectomy with intraoperative nerve and PTH monitoring. Hand drawings were used at this point to describe the implementation of these steps to minimize the risk to the recurrent laryngeal nerve and confirm cure, respectively. Patient confirmed understanding of this information and denied further questions. She stated that she is ready to undergo surgery to have the area of concern removed. Plan: Minimally invasive parathyroidectomy with intraoperative nerve and PTH monitoring. Outpatient disposition anticipated. Coding Level of Care Code Off vis,new,level 4 Diagnoses Primary hyperparathyroidism E21.0 Time Spent (min) 50 Clinical Quality Measures Falls Risk Screening/Assistive Devices Have you fallen in the past year?: No 11/20/24 6468 <Electronically signed by Je Burnett MD> Date _ Je Burnett MD Cosigner Signature: Date (if applicable) CC: Dr. Se Bryan MD; Dr. Guicho Quezada MD ~ [facility] Work Phone: [phone] Nuclear medicine Diagnostic study note [facility] Imaging Services [address] [place] [address] Parathyroid Scan MR#: [id number] Acct: [id number] Name: YAJAIRA BUNN Rep #: [id number] : 1945 F 79 From: Lefty Murillo MD PCP: Dr. Se Bryan MD Status: REG CL I Study:Parathyroid Scan Date of Exam: 11/21 Exam# [id number] Ordering Dr: Levon Quezada i, MD PROCEDURE: PARATHYROID SCAN REASON FOR EXAM: PRIMARY HYPERPARA LOCALIZATION. Hypercalcemia. Posterior left inferior thyroid nodule. TECHNIQUE: Procedure Code: NMPTHY Modality: NM Procedure: PARATHYROID SCAN Imaging performed following intravenous technetium-99m sestamibi administration. Anterior imaging of the neck on immediate and delayed imaging was performed. RADIOPHARMACEUTICAL: Technetium 99 M sestamibi DOSE 26.7mCi intravenous. COMPARISON: Thyroid ultrasound of 11/04/2024. FINDINGS: Of the left inferior thyroid, a focus of increased uptake is seen, which persists on delayed images, with relative increased compared to the thyroid tissue on delayed imaging. This is concerning of the presence of a left parathyroid adenoma. NM/Parathyroid Scan IMPRESSION: Findings concerning for the presence of a left inferior parathyroid adenoma. Reading Location: [place] [address] CC: OMA Montes; Dr. Se Bryan MD; Dr. Guicho Quezada MD ~ Criminology Teacher: Signed [facility]09-08-2025 Radiology Diagnostic study note [facility] Imaging Services [address] [place] [address] Thyroid MR#: [id number] Acct: [id number] Name: YAJAIRA BUNN Rep #: [id number] : 1945 F 79 From: Benny Siegel MD PCP: Dr. Se Bryan MD Status: REG CL I Study:Thyroid Date of Exam: 11/04/24 Exam# [id number] Ordering Dr: Levon Quezada i, MD PROCEDURE: THYROID 11/04/2024 REASON FOR EXAM: PARATHYROID LOCALIZATION. Hyperparathyroidism. TECHNIQUE: Procedure Code: USTHY Modality: US Procedure: THYROID COMPARISON: None FINDINGS: Right thyroid lobe size: 3.7 cm x 1.6 cm x 1.7 cm Left thyroid lobe size: 3.3 cm by 1.5 cm 1.3 cm Isthmus: 0.3 cm Background parenchymal echotexture is homogeneous. Nodules: . Lobe: Right, Location: Mid pole, Size: 0.6 cm x 0.5 cm 0.4 cm, Stability: N/A Composition: Solid or almost completely solid (+2) Echogenicity: Hypoechoic (+2) Margin: Smooth (+0) Shape: Wider than tall (+0) Echogenic Foci: None (+0) TI-RADS: 4 . Lobe: Left, Location: Mid, Size: 0.3 cm x 0.5 cm 0.3 cm, Stability: N/A Composition: Solid or almost completely solid (+2) Echogenicity: Hypoechoic (+2) Margin: Smooth (+0) Shape: Wider than tall (+0) Echogenic Foci: None (+0) TI-RADS: 4 Inferior to the right lobe of the thyroid, there is a 1 cm x 0.6 cm 0.3 cm hypoechoic nodular density. No evidence of vascularity. This may represent a parathyroid gland. There is also evidence of an 8 mm x 5 mm x 4 mm echogenic nodule inferior to theleft lobe of the thyroid gland suggestive of possible parathyroid. Inferior to the left lobe of the thyroid there is an heterogeneous vascular hypoechoic nodular density measuring 2.2 cm 1.1 cm 1 cm. Biopsy recommended. US/Thyroid IMPRESSION: Subcentimeter bilateral nodules in both lobes of the thyroid as described. Heterogeneous complex nodule inferior to the left lobe of the thyroid measuring 2.2 cm 1.1 cm 1 cm with vascularity. Biopsy recommended. RECOMMENDATION: Based on most suspicious nodule. Nodule size = largest diameter Only evaluate nodule if =>5 mm. Growth > 20% in 2 dimensions = worsening. Follow up to 4 nodules. Recommend biopsy for no more than 2 nodules. Reading Location: [place] CC: Dr. Se Bryan MD; Dr. Guicho Quezada MD ~ Criminology Teacher: Signed [facility]07-02-2025 Discharge summary [facility] Medical Records Department [address] [place] [address] Emergency Department Summary 08/28/24 MR#: [id number] Acct: [id number] Name: YAJAIRA BUNN Rep #:[id number] : 1945 78 From: Lorne Cherry MD PCP: Dr. Se Bryan MD Status:REG ER Location: ED HPI History of Present Illness Chief Complaint: Abn Labs Detail of Chief Complaint: Elevated calcium, 13.7 Informant: patient Onset/Context/Timing Onset: Days (Abnormal blood work August 26, calcium 13.7) Context: - (Unknown) Timing: - (Presumed continuous) Quality: Elevated calcium Location: Electrolytes Current Severity: Unknown repeating Maximum Severity: Moderate Worsened by: History of parathyroid hyperactivity Relieved by: Nothing Associated Symptoms Associated Symptoms: Increased thirst Narrative Narrative: Patient is a 78-year-old woman with history of iron deficiency anemia, hypertension, peptic ulcer disease, hyperactive parathyroid and osteopenia porosis. She is under the care of Dr. Guicho Quezada. She had blood work on August 26. Her calcium at that time was 13.7. She has had elevated calciums in the past in the mid to low 11 range. She denies headache, visual, ocular auditory symptoms. She denies trouble speech or swallowing. Shedenies paresthesia, anesthesia Medicus upper or lowerextremity. Denies problems with coordination or balance She denies cardiac respiratory symptoms. Denies abdominal pain, nausea, vomiting, diarrhea or constipation. She denies dysuria, urgency, hematuria. She states she has frequency. She states has been drinking more fluids recently. She does not have history of diabetes. Patient denies weight loss. Patient denies bone pain. Patient denies history of cancer. Prior similar symptoms: Yes Recent Illness/Hospitalization: No PFSH PFS Medical History Vitamin D deficiency Abnormal mammogram of right breast Heart murmur Acid reflux Arthritis HTN (hypertension) Home Medications ?Medication ?Instructions ?Recorded ?Last Taken ?Type omeprazole magnesium 20 mg 20 mg PO DAILY 05/20/17 Unk nown History tablet,delayed release aspirin 81 mg chewable tablet 81 mg PO QDAY 08/17/17 U nknown History multivitamin with iron 1 tab PO QDAY 08/17/17 Unkno wn History ferrous sulfate 325 mg (65 mg 325 mg PO DAILY 10/23/20 Unknown History iron) tablet (FeroSul) latanoprost 0.005 % eye drops 1 ml ophthalmic (eye) DA ROSY 10/23/20 Unknown History lisinopril 20 mg tablet 20 mg PO DAILY 10/23/20 Unkn own History simvastatin 20 mg tablet 20 mg PO DAILY 10/23/20 Unkn own History vit C 250 mg-vit E 90 mg-zinc 40 1 tab PO BID 08/18/21 Unknown History mg-copper 1 [id number] capsule (PreserVision AREDS-2) denosumab 60 mg/mL subcutaneous 60 mg subcut [id number] #1 mL 10/20/22 Unknown Rx syringe (Prolia) cholecalciferol (vitamin D3) 25 50 mcg PO QDAY 5 Unknown History mcg (1,000 unit) capsule Allergy/AdvReac Type Severity Reaction Status Date / Time No Known Allergies Allergy Verified 08/28/24 17:18 Family History Grandmother Breast cancer Surgical History H/O colonoscopy Ankle fracture History of hip surgery Social History (Updated 08/28/24 @ 20:[address] Lorne Cherry MD) household members: spouse Smoking Status: Former smoker alcohol intake: current alcohol intake frequency: holidays/special occasions only ROS ROS ED Constitutional Constitutional ED: Denies chills, fever(s), subjective or sweats Eyes Eyes: Denies blurry vision or change in vision ENT ENT ED: Denies rhinorrhea or sore throat Cardiovascular Cardiovascular: Denies chest pain or palpitations Respiratory/Chest Respiratory/Chest: Denies cough, dyspnea or dyspnea on exertion Gastrointestinal Gastrointestinal: Denies abdominal pain, constipation, diarrhea, melena, nausea or vomiting Genitourinary Genitourinary ED: Reports urinary frequency; Denies dysuria or hematuria Musculoskeletal Musculoskeletal: Denies arthralgias or myalgias Integumentary Denies rash Neurologic Neurologic: Denies headache(s), paresthesias or weakness Psychiatric Psychiatric: Denies anxiety or depression Endocrine Endocrinology: Denies cold intolerance or heat intolerance Hematologic/Lymphatic Hematologic/Lymphatic: Reports systems reviewed and no addt'l complaints, exceptas documented EXAM Physical Exam Const Vital Signs: 08/28/24 17:16 08/28/24 18:16 08/28/24 19:16 Temperature 97.5 F L Temperature Source Oral Pulse Rate 94 78 Respiratory Rate 18 16 Respiratory Effort Normal Non-Labored Blood Pressure 192/70 H 160/71 H Blood Pressure Mean 110 100 Pulse Ox 99 100 Oxygen Delivery Method Room Air Room Air Positive well nourished and well developed Constitutional Narrative: Blood pressure is elevated. She does have a history of hypertension. This slightly higher than normal. She appears in no distress BMI is 32.8. General Appearance ED: well developed and NAD; Negative for cyanotic, diaphoretic or pallor HEENT Reports moist mucous membranes HEENT Narrative: Head is atraumatic normocephalic. Ears normal. Nares patent. Uvula midline. No deviation of the tongue with protrusion. Eyes PERRL and EOMs intact bilaterally General Eye ED: Negative for pale conjunctiva or scleral icterus Neck no lymphadenopathy and supple Resp normal respiratory effort and clear to auscultation bilaterally Cardio regular rate, regular rhythm, S1 normal heart sound, S2 normal heart sound and no murmurs GI normal to inspection, nondistended, normoactive bowel sounds, non-tender, non- distended and no masses; Negative for hepatosplenomegaly Back/Spine no CVA tenderness Neuro oriented x3, CN's II-XII intact bilaterally and no sensory deficits noted Neuro Narrative: There is no clonus or Babinski sign noted. Sensorium / Orientation: alert Psych mental status grossly normal Skin no rashes or lesions noted, no wounds and skin turgor normal General Skin Exam: elasticity normal; Negative for jaundice or pallor MDM MDM MDM Narrative Medical decision making narrative: Competence of metabolic panel was obtained to reassess calcium and check albuminsince this has not been checked for some time. Also to assess renal function. CBC to assess for anemia patient received1 L of normal saline wide open and second liter to 50 an hour. This was for treatment of her hyperca lcemia. EKG was obtained to assess for EKG changes. Should be a short WA interval etc. Lab Data Lab results narrative: CBC reveals mild anemia with normal indices. Comprehensive metabolic panel reveals a calcium of 1.4which is her baseline. Competence of metabolic panel otherwise is normal. Labs: Laboratory Results - last 24 hr 08/28/24 18:26 WBC 8.4 RBC 3.79 L Hgb 12.3 Hct 35.6 L MCV 93.9 MCH 32.5 H MCHC 34.6 RDW Std Deviation 40.4 RDW Coeff of Kyler 11.9 Plt Count 262 MPV 10.3 Immature Gran % (Auto) 0.500 Neut % (Auto) 67.4 Lymph % (Auto) 19.2 Hettinger % (Auto) 9.6 Eos % (Auto) 2.7 Baso % (Auto) 0.6 Absolute Neuts (auto) 5.7 Absolute Lymphs (auto) 1.62 Nucleated RBC % 0 Sodium 138 Potassium 4.3 Chloride 104 Carbon Dioxide 19.3 L Anion Gap 14 BUN 17 Creatinine 1.08 Estim Creat Clear Calc 40.44 L Est GFR (MDRD) Non-Af 53 L BUN/Creatinine Ratio 16.1 Glucose 89 Calcium 11.4 H Total Bilirubin 0.30 AST 29 ALT 16 Alkaline Phosphatase 80 Total Protein 7.0 Albumin 4.4 Globulin 2.6 Albumin/Globulin Ratio 1.7 EKG Initial EKG: Attestation: I personally reviewed and interpreted this EKG as follows: Interpretation: Sinus Rhythm (Rate is 79. [place] the left. WA interval is 204 ms. Cures duration 80 ms. QT duration 286 ms.) Prior: Unchanged Treatment and Re-Evaluation :: Since patient's calcium today is 1.4 will discharge to home Discharge Plan Triage Chief Complaint: Abn Labs ED Provider: Lorne Cherry Dx/Rx/DC Orders Clinical Impression: Hypercalcemia, Primary hyperparathyroidism, Vitamin D deficiency Instructions: Hypercalcemia Dc Prescriptions: No Action multivitamin with iron tablet 1 tab PO QDAY aspirin 81 mg tablet,chewable 81 mg PO QDAY lisinopril 20 mg tablet 20 mg PO DAILY Patient Comments: Take 1 tablet by mouth daily simvastatin 20 mg tablet 20 mg PO DAILY Patient Comments: Take 1 tablet by mouth daily latanoprost 0.005 % drops 1 ml ophthalmic (eye) DAILY Patient Comments: instill 1 (ONE) drop into both eyes EVERY NIGHT AT BEDTIME ferrous sulfate [FeroSul] 325 mg (65 mg iron) tablet 325 mg PO DAILY Prolia 60 mg/mL syringe 60 mg SC [id number] Qty: 1 1RF cholecalciferol (vitamin D3) 25 mcg (1,000 unit) capsule 50 mcg PO QDAY omeprazole magnesium 20 MG tablet,delayed release (DR/EC) 20 mg PO DAILY PreserVision AREDS-2 250-90-40-1 mg Capsule 1 tab PO BID Primary Care Provider: Se Bryan Referrals: Se Bryan MD [Primary Care Provider] - Guicho Quezada MD [Med Staff - Courtesy Staff] - As Needed Print Language: Micronesian Disposition Disposition: Home, Self Care What to do if you have Problems For any increased pain, shortness of breath, bleeding, nausea or vomiting, chestpain, or any unexpected problems, contact your Primary Care Provider. Call [facility] ([phone]) or report tothe closest Emergency Room. Call 911 if necessary. 08/28/242022 Cosigner Signature (if applicable): CC: Dr. Se Bryan MD ~ Signed [facility]07-02-2025 Discharge summary Author Lorne Cherry [facility] Note Date/Time August 28, 2024 8:23p m [facility] Medical Records Department [address] [place] [id number] Emergency Department Summary 08/28/24 MR#: [id number] Acct: [id number] Name: YAJAIRA BUNN Rep #:[id number] : 1945 78 From: Lorne Cherry MD PCP: Dr. Se Bryan MD Status:REG ER Location: ED HPI History of Present Illness Chief Complaint: Abn Labs Detail of Chief Complaint: Elevated calcium, 13.7 Informant: patient Onset/Context/Timing Onset: Days (Abnormal blood work August 26, calcium 13.7) Context: - (Unknown) Timing: - (Presumed continuous) Quality: Elevated calcium Location: Electrolytes Current Severity: Unknown repeating Maximum Severity: Moderate Worsened by: History of parathyroid hyperactivity Relieved by: Nothing Associated Symptoms Associated Symptoms: Increased thirst Narrative Narrative: Patient is a 78-year-old woman with history of iron deficiency anemia, hypertension, peptic ulcer disease, hyperactive parathyroid and osteopenia porosis. She is under the care of Dr. Guicho Quezada. She had blood work on August 26. Her calcium at that time was 13.7. She has had elevated calciums in the past in the mid to low 11 range. She denies headache, visual, ocular auditory symptoms. She denies trouble speech or swallowing. She denies paresthesia, anesthesia Medicus upper or lowerextremity. Denies problems with coordination or balance She denies cardiac respiratory symptoms. Denies abdominal pain, nausea, vomiting, diarrhea or constipation. She denies dysuria, urgency, hematuria. She states she has frequency. She states has been drinking more fluids recently. She does not have history of diabetes. Patient denies weight loss. Patient denies bone pain. Patient denies history of cancer. Prior similar symptoms: Yes Recent Illness/Hospitalization: No [facility] Medical History Vitamin D deficiency Abnormal mammogram of right breast Heart murmur Acid reflux Arthritis HTN (hypertension) Home Medications ?Medication ?Instructions ?Recorded ?Last Taken ?Type omeprazole magnesium 20 mg 20 mg PO DAILY 05/20/17 Unk nown History tablet,delayed release aspirin 81 mg chewable tablet 81 mg PO QDAY 08/17/17 U nknown History multivitamin with iron 1 tab PO QDAY 08/17/17 Unkno wn History ferrous sulfate 325 mg (65 mg 325 mg PO DAILY 10/23/20 Unknown History iron) tablet (FeroSul) latanoprost 0.005 % eye drops 1 ml ophthalmic (eye) DA ROSY 10/23/20 Unknown History lisinopril 20 mg tablet 20 mg PO DAILY 10/23/20 Unkn own History simvastatin 20 mg tablet 20 mg PO DAILY 10/23/20 Unkn own History vit C 250 mg-vit E 90 mg-zinc 40 1 tab PO BID 08/18/21 Unknown History mg-copper 1 au-qljaoq-[id number] capsule (PreserVision AREDS-2) denosumab 60 mg/mL subcutaneous 60 mg subcut [id number] #1 mL 10/20/22 Unknown Rx syringe (Prolia) cholecalciferol (vitamin D3) 25 50 mcg PO QDAY 5 Unknown History mcg (1,000 unit) capsule Allergy/AdvReac Type Severity Reaction Status Date / Time No Known Allergies Allergy Verified 08/28/24 17:18 Family History Grandmother Breast cancer Surgical History H/O colonoscopy Ankle fracture History of hip surgery Social History (Updated 08/28/24 @ 20:[address] Lorne Cherry MD) household members: spouse Smoking Status: Former smoker alcohol intake: current alcohol intake frequency: holidays/special occasions only ROS ROS ED Constitutional Constitutional ED: Denies chills, fever(s), subjective or sweats Eyes Eyes: Denies blurry vision or change in vision ENT ENT ED: Denies rhinorrhea or sore throat Cardiovascular Cardiovascular: Denies chest pain or palpitations Respiratory/Chest Respiratory/Chest: Denies cough, dyspnea or dyspnea on exertion Gastrointestinal Gastrointestinal: Denies abdominal pain, constipation, diarrhea, melena, nausea or vomiting Genitourinary Genitourinary ED: Reports urinary frequency; Denies dysuria or hematuria Musculoskeletal Musculoskeletal: Denies arthralgias or myalgias Integumentary Denies rash Neurologic Neurologic: Denies headache(s), paresthesias or weakness Psychiatric Psychiatric: Denies anxiety or depression Endocrine Endocrinology: Denies cold intolerance or heat intolerance Hematologic/Lymphatic Hematologic/Lymphatic: Reports systems reviewed and no addt'l complaints, exceptas documented EXAM Physical Exam Const Vital Signs: 08/28/24 17:16 08/28/24 18:16 08/28/24 19:16 Temperature 97.5 F L Temperature Source Oral Pulse Rate 94 78 Respiratory Rate 18 16 Respiratory Effort Normal Non-Labored Blood Pressure 192/70 H 160/71 H Blood Pressure Mean 110 100 Pulse Ox 99 100 Oxygen Delivery Method Room Air Room Air Positive well nourished and well developed Constitutional Narrative: Blood pressure is elevated. She does have a history of hypertension. This slightly higher than normal. She appears in no distress BMI is 32.8. General Appearance ED: well developed and NAD; Negative for cyanotic, diaphoretic or pallor HEENT Reports moist mucous membranes HEENT Narrative: Head is atraumatic normocephalic. Ears normal. Nares patent. Uvula midline. No deviation of the tongue with protrusion. Eyes PERRL and EOMs intact bilaterally General Eye ED: Negative for pale conjunctiva or scleral icterus Neck no lymphadenopathy and supple Resp normal respiratory effort and clear to auscultation bilaterally Cardio regular rate, regular rhythm, S1 normal heart sound, S2 normal heart sound and no murmurs GI normal to inspection, nondistended, normoactive bowel sounds, non-tender, non-distended and no masses; Negative for hepatosplenomegaly Back/Spine no CVA tenderness Neuro oriented x3, CN's II-XII intact bilaterally and no sensory deficits noted Neuro Narrative: There is no clonus or Babinski sign noted. Sensorium / Orientation: alert Psych mental status grossly normal Skin no rashes or lesions noted, no wounds and skin turgor normal General Skin Exam: elasticity normal; Negative for jaundice or pallor MDM MDM MDM Narrative Medical decision making narrative: Competence of metabolic panel was obtained to reassess calcium and check albuminsince this has not been checked for some time. Also to assess renal function. CBC to assess for anemia patient received 1 L of normal saline wide open and second liter to 50 an hour. This was for treatment of her hypercalcemia. EKG was obtained to assess for EKG changes. Should be a short WA interval etc. Lab Data Lab results narrative: CBC reveals mild anemia with normal indices. Comprehensive metabolic panel reveals a calcium of 1.4 which is her baseline. Competence of metabolic panel otherwise is normal. Labs: Laboratory Results - last 24 hr 08/28/24 18:26 WBC 8.4 RBC 3.79 L Hgb 12.3 Hct 35.6 L MCV 93.9 MCH 32.5 H MCHC 34.6 RDW Std Deviation 40.4 RDW Coeff of Kyler 11.9 Plt Count 262 MPV 10.3 Immature Gran % (Auto) 0.500 Neut % (Auto) 67.4 Lymph % (Auto) 19.2 Hettinger % (Auto) 9.6 Eos % (Auto) 2.7 Baso % (Auto) 0.6 Absolute Neuts (auto) 5.7 Absolute Lymphs (auto) 1.62 Nucleated RBC % 0 Sodium 138 Potassium 4.3 Chloride 104 Carbon Dioxide 19.3 L Anion Gap 14 BUN 17 Creatinine 1.08 Estim Creat Clear Calc 40.44 L Est GFR (MDRD) Non-Af 53 L BUN/Creatinine Ratio 16.1 Glucose 89 Calcium 11.4 H Total Bilirubin 0.30 AST 29 ALT 16 Alkaline Phosphatase 80 Total Protein 7.0 Albumin 4.4 Globulin 2.6 Albumin/Globulin Ratio 1.7 EKG Initial EKG: Attestation: I personally reviewed and interpreted this EKG as follows: Interpretation: Sinus Rhythm (Rate is 79. [place] the left. WA interval is 204 ms. Cures duration 80 ms. QT duration 286 ms.) Prior: Unchanged Treatment and Re-Evaluation :: Since patient's calcium today is 1.4 will discharge to home Discharge Plan Triage Chief Complaint: Abn Labs ED Provider: Lorne Cherry Dx/Rx/DC Orders Clinical Impression: Hypercalcemia, Primary hyperparathyroidism, Vitamin D deficiency Instructions: Hypercalcemia Dc Prescriptions: No Action multivitamin with iron tablet 1 tab PO QDAY aspirin 81 mg tablet,chewable 81 mg PO QDAY lisinopril 20 mg tablet 20 mg PO DAILY Patient Comments: Take 1 tablet by mouth daily simvastatin 20 mg tablet 20 mg PO DAILY Patient Comments: Take 1 tablet by mouth daily latanoprost 0.005 % drops 1 ml ophthalmic (eye) DAILY Patient Comments: instill 1 (ONE) drop into both eyes EVERY NIGHT AT BEDTIME ferrous sulfate [FeroSul] 325 mg (65 mg iron) tablet 325 mg PO DAILY Prolia 60 mg/mL syringe 60 mg SC [id number] Qty: 1 1RF cholecalciferol (vitamin D3) 25 mcg (1,000 unit) capsule 50 mcg PO QDAY omeprazole magnesium 20 MG tablet,delayed release (DR/EC) 20 mg PO DAILY PreserVision AREDS-2 250-90-40-1 mg Capsule 1 tab PO BID Primary Care Provider: Se Bryan Referrals: Se Bryan MD [Primary Care Provider] - Guicho Quezada MD [Med Staff - Courtesy Staff] - As Needed Print Language: Micronesian Disposition Disposition: Home, Self Care What to do if you have Problems For any increased pain, shortness of breath, bleeding, nausea or vomiting, chestpain, or any unexpected problems, contact your Primary Care Provider. Call [facility] ([phone]) or report to the closest Emergency Room. Call 911 if necessary. 08/28/242022 <Electronically signed by Lorne Cherry MD> Cosigner Signature (if applicable): CC: Dr. Se Bryan MD ~ Signed [facility] Work Phone: [phone]) 109-362606-30-2025 Evaluation note* Diagnosis Onset Date Resolution Status Admit Date Osteoporosis chronic August 26, 025 1:50pm Primary hyperparathyroidism chronic August 26, 2024 1:50pm Vitamin D deficiency chronic August 26, 2024 1:50pm [facility] Work Phone: 1(658) 857-330306-30-2025 Evaluation note* Diagnosis Onset Date Resolution Status Admit Date Osteoporosis chronic August 26, 025 1:50pm Primary hyperparathyroidism chronic August 26, 2024 1:50pm Vitamin D deficiency chronic August 26, 2024 1:50pm Primary hyperparathyroidism chronic October 24, 2024 3:21pm Primary hyperparathyroidism chronic November 20, 2024 12:45pm [facility] Work Phone: [phone]) 423-763906-30-2025 [facility] [address] [place] [address] OFFICE VISIT Date of Service: 08/26/24 MR#: [id number] Acct: [id number] Name: YAJAIRA BUNN Rep #: [id number] : 1945 Provider: Dr. Guicho Quezada MD Age/Sex: 78/F Location: [facility] [place], [place] Status: Signed Intake Vital Signs 10/20/23 13:02 08/26/24 13:49 Height 5 ft 5 ft Weight: 169 lb BMI 33.0 BP 144/80 H Blood Pressure Location Lt brachial Position Sitting Pulse 85 Pulse Source Monitor Pulse Oximetry (%) 96 Oxygen Delivery Method room air Intake Visit Reasons: 1 Y FU/ Prolia - B&B Chief Complaint: Osteoporosis Regulator Operator Required: No Accompanied by: Self Is patient in pain?: No Allergies No Known Allergies Allergy (Verified 08/26/24 13:49) Medications ?Medication ?Instructions ?Recorded ?Confirmed ?Type omeprazole magnesium 20 mg 20 mg PO DAILY 05/20/17 History tablet,delayed release aspirin 81 mg chewable tablet 81 mg PO QDAY 08/17/17 0 08/26/24 History multivitamin with iron 1 tab PO QDAY 08/17/1708/26 History ferrous sulfate 325 mg (65 mg 325 mg PO DAILY 10/23/20 08/26/24 History iron) tablet (FeroSul) latanoprost 0.005 % eye drops 1 ml ophthalmic (eye) DA ROSY 10/23/20 08/26/24 History lisinopril 20 mg tablet 20 mg PO DAILY 10/23/2007/30 History simvastatin 20 mg tablet 20 mg PO DAILY 10/23/2007/30 History vit C 250 mg-vit E 90 mg-zinc 40 1 tab PO BID 08/18/21 08/26/24 History mg-copper 1 cw-qyelny-tnehaj capsule (PreserVision AREDS-2) denosumab 60 mg/mL subcutaneous 60 mg subcut [id number] #1 mL 10/20/22 08/26/24 Rx syringe (Prolia) cholecalciferol (vitamin D3) 25 50 mcg PO QDAY 5 08/26/24 History mcg (1,000 unit) capsule Have you fallen in the past year?: Yes (Denies any breaks or fractures. ) [facility] Medical History Vitamin D deficiency Abnormal mammogram of right breast Heart murmur Acid reflux Arthritis HTN (hypertension) Surgical History H/O colonoscopy Ankle fracture History of hip surgery Family History Grandmother Breast cancer Social History Smoking Status: Former smoker alcohol intake: current alcohol intake frequency: holidays/special occasions only HPI HPI Chief Complaint: Osteoporosis Details: YAJAIRA BUNN, is a 78 F who presents to the office today for follow up. She has osteoporosis and is taking Prolia. She had a fall in the Spring. No fractures or serious injury. She has primary hyperparathyroidism. She is attempting to avoid surgery. She has been feeling more fatigued than usual. She is taking a nap every day. She is due for labs. ROS Const Constitutional: Positive for fatigue; No weakness or weight change Cardio Cardiology: No chest pain at rest, chest pain with exertion or shortness of breath Musc Musculoskeletal: Positive for joint pain and muscle weakness (Legs); No numbness Neuro Neurology: No weakness or numbness Skin Skin: No wounds Endo Endocrine: Positive for fatigue; No weight change Exam Const General: cooperative, healthy appearing, comfortable, no acute distress, well developed and not cushingoid Nutritional Appearance: well nourished Orientation: alert, awake and oriented x3 HENMT Head: normal to inspection Ears: hearing grossly normal bilaterally Nose: external nose normal Mouth: oral mucosae normal Eyes General: appearance normal, both eyes and all related structures Alignment and Position: alignment normal Periorbital: periorbital findings normal Eyelids: eyelids normal Conjunctivae: conjunctivae normal Neck Neck: normal visual inspection Neck mass: No Thyroid: thyroid normal Chest Chest palpation & inspection: normal inspection of the chest Resp Effort & Inspection: normal respiratory effort, able to speak in complete sentences, symmetric chest movement, no audible wheezes and no cough Cardio Rate: regular rate Rhythm: regular rhythm Skin General: no rashes or lesions noted Neuro General: patient alert, patient awake and patient oriented x3 Cranial Nerves: CN's II-XI intact bilaterally Cognition: normal cognition Speech: speech normal Gait: normal gait Motor: muscle tone normal throughout Psych Appearance: grossly normal Mental Status: mental status grossly normal Mood: congruent mood Affect: normal affect Speech and Movement: speech and movement normal Attitude: cooperative Thought Process: normal Thought Content: normal Judgment: judgment good Office Procedures Injections Procedure performed by: Estefany Oakley Lot number: [id number] Frame Tender: [employer] date: 02/26/27 Dose of injection: 1mL Site of injection: Sub-Q Medication Given: Yes Is this a patient provided medication?: No Office Meds Prolia 60 mg/mL subcutaneous syringe Performing Provider: Guicho Quezada MD Performing Location: [facility] Administered by: Estefany Oakley on 08/26/24 14:02 Dose Route Admin Location Dispensed Lot Number Expiration Date [facility] Frame Tender 60 mg subcut Lt Arm 1 mL [id number] 02/26/27 04358-740-33 [employer] Clinical Quality Measures Falls Risk Screening/Assistive Devices Have you fallen in the past year?: Yes (Denies any breaks or fractures. ) Assessment and Plan Assessment and Plan (1) Osteoporosis: Status: Chronic Qualifiers: Osteoporosis type: age-related Presence of current pathological fracture: without current pathological fracture Qualified Code(s): M81.0 - Age-related osteoporosis without current pathological fracture Plan: Continue Prolia Maintain normal calcium and vitamin D levels. Avoid falls. Exercise to maintain good balance. (2) Primary hyperparathyroidism: Status: Chronic Plan: Check levels. (3) Vitamin D deficiency: Status: Chronic Plan: Check levels. I have spent [32] minutes today reviewing labs, records and history. Time includes coordinating care, interpretation of tests, discussion with patient's other health care providers via telephone. This also includes time I spent with the patient for exam, treatment plan and education as well as documenting clinical information. I am providing longitudinal care Orders: Orders Prolia Injection Today M81.0 - Age-related osteoporosis without current pathological fracture Ferritin Today D50.9 - Iron deficiency anemia, unspecified, E21.0 - Primary hyperparathyroidism, E55.9 - Vitamin D deficiency, unspecified, M81.0 - Age- related osteoporosis without current pathological fracture Vitamin B12 Today E21.0 - Primary hyperparathyroidism, E55.9 - Vitamin D deficiency, unspecified, M81.0 - Age-related osteoporosis without current pathological fracture Medications: New cholecalciferol (vitamin D3) 50 mcg PO QDAY Coding Level of Care Code Off vis,est,level 4 Extra Time Spent Extra Time Spent Extra Time Spent: G2211 Diagnoses Age-related osteoporosis without current pathological fracture M81.0 Osteoporosis type: age-related Presence of current pathological fracture: without current pathological fracture Primary hyperparathyroidism E21.0 Vitamin D deficiency E55.9 Additional Codes Extra Time Spent - Extra Time Spent: G2211 ([id number]) 08/26/24 1416 Date _ Guicho Rebolledo Signature: Date (if applicable) CC: Dr. Se Bryan MD ~ [facility] [id number] Progress note Author Guicho Quezada [facility] Note Date/Time August 26, 2024 2:16 pm [facility] [address] [place] [address] OFFICE VISIT Date of Service: 08/26/24 MR#: [id number] Acct: [id number] Name: YAJAIRA BUNN Rep #: [id number] : 1945 Provider: Dr. Guicho Quezada MD Age/Sex: 78/F Location: [facility] [place], [place] Status: Signed Intake Vital Signs 10/20/23 13:02 08/26/24 13:49 Height 5 ft 5 ft Weight: 169 lb BMI 33.0 BP 144/80 H Blood Pressure Location Lt brachial Position Sitting Pulse 85 Pulse Source Monitor Pulse Oximetry (%) 96 Oxygen Delivery Method room air Intake Visit Reasons: 1 Y FU/ Prolia - B&B Chief Complaint: Osteoporosis Regulator Operator Required: No Accompanied by: Self Is patient in pain?: No Allergies No Known Allergies Allergy (Verified 08/26/24 13:49) Medications ?Medication ?Instructions ?Recorded ?Confirmed ?Type omeprazole magnesium 20 mg 20 mg PO DAILY 05/20/17 History tablet,delayed release aspirin 81 mg chewable tablet 81 mg PO QDAY 08/17/17 0 08/26/24 History multivitamin with iron 1 tab PO QDAY 08/17/1708/26 History ferrous sulfate 325 mg (65 mg 325 mg PO DAILY 10/23/20 08/26/24 History iron) tablet (FeroSul) latanoprost 0.005 % eye drops 1 ml ophthalmic (eye) DA ROSY 10/23/20 08/26/24 History lisinopril 20 mg tablet 20 mg PO DAILY 10/23/2007/30 History simvastatin 20 mg tablet 20 mg PO DAILY 10/23/2007/30 History vit C 250 mg-vit E 90 mg-zinc 40 1 tab PO BID 08/18/21 08/26/24 History mg-copper 1 vy-vaqoiq-kdlgma capsule (PreserVision AREDS-2) denosumab 60 mg/mL subcutaneous 60 mg subcut [id number] #1 mL 10/20/22 08/26/24 Rx syringe (Prolia) cholecalciferol (vitamin D3) 25 50 mcg PO QDAY 5 08/26/24 History mcg (1,000 unit) capsule Have you fallen in the past year?: Yes (Denies any breaks or fractures. ) [facility] Medical History Vitamin D deficiency Abnormal mammogram of right breast Heart murmur Acid reflux Arthritis HTN (hypertension) Surgical History H/O colonoscopy Ankle fracture History of hip surgery Family History Grandmother Breast cancer Social History Smoking Status: Former smoker alcohol intake: current alcohol intake frequency: holidays/special occasions only HPI HPI Chief Complaint: Osteoporosis Details: YAJAIRA BUNN, is a 78 F who presents to the office today for follow up. She has osteoporosis and is taking Prolia. She had a fall in the Spring. No fractures or serious injury. She has primary hyperparathyroidism. She is attempting to avoid surgery. She has been feeling more fatigued than usual. She is taking a nap every day. She is due for labs. ROS Const Constitutional: Positive for fatigue; No weakness or weight change Cardio Cardiology: No chest pain at rest, chest pain with exertion or shortness of breath Musc Musculoskeletal: Positive for joint pain and muscle weakness (Legs); No numbness Neuro Neurology: No weakness or numbness Skin Skin: No wounds Endo Endocrine: Positive for fatigue; No weight change Exam Const General: cooperative, healthy appearing, comfortable, no acute distress, well developed and not cushingoid Nutritional Appearance: well nourished Orientation: alert, awake and oriented x3 HENMT Head: normal to inspection Ears: hearing grossly normal bilaterally Nose: external nose normal Mouth: oral mucosae normal Eyes General: appearance normal, both eyes and all related structures Alignment and Position: alignment normal Periorbital: periorbital findings normal Eyelids: eyelids normal Conjunctivae: conjunctivae normal Neck Neck: normal visual inspection Neck mass: No Thyroid: thyroid normal Chest Chest palpation & inspection: normal inspection of the chest Resp Effort & Inspection: normal respiratory effort, able to speak in complete sentences, symmetric chest movement, no audible wheezes and no cough Cardio Rate: regular rate Rhythm: regular rhythm Skin General: no rashes or lesions noted Neuro General: patient alert, patient awake and patient oriented x3 Cranial Nerves: CN's II-XI intact bilaterally Cognition: normal cognition Speech: speech normal Gait: normal gait Motor: muscle tone normal throughout Psych Appearance: grossly normal Mental Status: mental status grossly normal Mood: congruent mood Affect: normal affect Speech and Movement: speech and movement normal Attitude: cooperative Thought Process: normal Thought Content: normal Judgment: judgment good Office Procedures Injections Procedure performed by: Estefany Oakley Lot number: [id number] Frame Tender: [employer] date: 02/26/27 Dose of injection: 1mL Site of injection: Sub-Q Medication Given: Yes Is this a patient provided medication?: No Office Meds Prolia 60 mg/mL subcutaneous syringe Performing Provider: Guicho Quezada MD Performing Location: [facility] Administered by: Estefany Oakley on 08/26/24 14:02 Dose Route Admin Location Dispensed Lot Number Expiration Date [facility] Frame Tender 60 mg subcut Lt Arm 1 mL [id number] 02/26/27 27155-875-57 [employer] Clinical Quality Measures Falls Risk Screening/Assistive Devices Have you fallen in the past year?: Yes (Denies any breaks or fractures. ) Assessment and Plan Assessment and Plan (1) Osteoporosis: Status: Chronic Qualifiers: Osteoporosis type: age-related Presence of current pathological fracture: without current pathological fracture Qualified Code(s): M81.0 - Age-related osteoporosis without current pathological fracture Plan: Continue Prolia Maintain normal calcium and vitamin D levels. Avoid falls. Exercise to maintain good balance. (2) Primary hyperparathyroidism: Status: Chronic Plan: Check levels. (3) Vitamin D deficiency: Status: Chronic Plan: Check levels. I have spent [32] minutes today reviewing labs, records and history. Time includes coordinating care, interpretation of tests, discussion with patient's other health care providers via telephone. This also includes time I spent with the patient for exam, treatment plan and education as well as documenting clinical information. I am providing longitudinal care Orders: Orders Prolia Injection Today M81.0 - Age-related osteoporosis without current pathological fracture Ferritin Today D50.9 - Iron deficiency anemia, unspecified, E21.0 - Primary hyperparathyroidism, E55.9 - Vitamin D deficiency, unspecified, M81.0 - Age- related osteoporosis without current pathological fracture Vitamin B12 Today E21.0 - Primary hyperparathyroidism, E55.9 - Vitamin D deficiency, unspecified, M81.0 - Age-related osteoporosis without current pathological fracture Medications: New cholecalciferol (vitamin D3) 50 mcg PO QDAY Coding Level of Care Code Off vis,est,level 4 Extra Time Spent Extra Time Spent Extra Time Spent: G2211 Diagnoses Age-related osteoporosis without current pathological fracture M81.0 Osteoporosis type: age-related Presence of current pathological fracture: without current pathological fracture Primary hyperparathyroidism E21.0 Vitamin D deficiency E55.9 Additional Codes Extra Time Spent - Extra Time Spent: G2211 ([id number]) 08/26/24 1416 <Electronically signed by Guicho Quezada MD> Date _ [facility] Signature: Date (if applicable) CC: Dr. Se Bryan MD ~ [facility] Work Phone: 1(667) 399-631604-23-2024 Procedure [facility] 09-28-2022 [facility] noteNo assessment information availableWOhio [facility] Work Phone: Evaluation note* Diagnosis Onset Date Resolution Status Vitamin D deficiency acute Osteoporosis chronic Primary hyperparathyroidism [facility] Work Phone: Evaluation note* Diagnosis Onset Date Resolution Status Osteoporosis chronic Primary hyperparathyroidism chronic Vitamin D deficiency [facility] Work Phone: Evaluation note* Diagnosis Onset Date Resolution Status Admit Date Osteoporosis chronic August 26, 1:50pm Primary hyperparathyroidism chronic August 26, 2024 1:50pm Vitamin D deficiency chronic August 26, 2024 1:50pm [facility] Work Phone: Reason for referral (narrative)No reason for referral information availableInter[facility] Work Phone: Summary Purpose Family History No Family History Records Found Relationship Condition Age at Onset Recorded Date/T jamie grandmother Malignant neoplasm of breast Unknown Advance Directives No Advanced Directives Records Found Advance Directive Response Recorded Date/ Time Living Will No May 20, 2017 6:21pm Power of Legal Administrative Secretary No May 20 6:21pm Advance Directive Response Recorded Date/ Time Living Will No May 20, 2017 5:21pm Power of Legal Administrative Secretary No May 20 5:21pm Advance Directive Response Recorded Date/ Time Do you have a [facility] Power of Legal Administrative Secretary? Yes August 28, 2024 6:16pm Chief Complaint and Reason for Visit Chief Complaint Admit Date 1 Y FU/ Prolia - B&B August 26, 2024 1:5 0pm abn labs August 28, 2024 5:16p m Reason for Visit Admit Date Osteoporosis August 26, 2024 1:50 pm Primary hyperparathyroidism August 26 1:50pm Vitamin D deficiency August 26, 2024 1:5 0pm Chief Complaint PROLIA Chief Complaint PROLIA NEED ORDER Chief Complaint PROLIA NEED ORDER 1 Y FU SCREENING/POST EDDIE Reason for Visit Vitamin D deficiency Osteoporosis Primary hyperparathyroidism Chief Complaint PROLIA EORDER- T.DAMIEN AND MAXX ORDER Chief Complaint PROLIA RIGHT UPPER EXT PARESTHESIA OF SKIN RIGHT UPPER EXT PARESTHESIA OF SKIN Chief Complaint PROLIA RIGHT UPPER EXT PARESTHESIA OF SKIN RIGHT UPPER EXT PARESTHESIA OF SKIN pre op labs Chief Complaint PROLIA RIGHT UPPER EXT PARESTHESIA OF SKIN RIGHT UPPER EXT PARESTHESIA OF SKIN pre op labs 1 Y FU SCREENING Reason for Visit Osteoporosis Primary hyperparathyroidism Vitamin D deficiency Chief Complaint SCREENING PROLIA Chief Complaint SINUS COMPLAINTS/COU GH CARPAREL TUNNEL CARPAREL TUNNEL Chief Complaint Admit Date 1 Y FU/ Prolia - B&B August 26, 2024 1:5 0pm Chief Complaint Admit Date 1 Y FU/ Prolia - B&B August 26, 2024 1:5 0pm abn labs August 28, 2024 5:16p m EORDER October 11, 2024 12 :34pm Chief Complaint Admit Date 1 Y FU/ Prolia - B&B August 26, 2024 1:5 0pm abn labs August 28, 2024 5:16p m EORDER October 11, 2024 12 :34pm 3 M FU October 24, 2024 3: 21pm Chief Complaint Admit Date 1 Y FU/ Prolia - B&B August 26, 2024 1:5 0pm abn labs August 28, 2024 5:16p m EORDER October 11, 2024 12 :34pm 3 M FU October 24, 2024 3: 21pm HYPERPARATHYROISISM November 04, 2024 1:32pm HYPERPARATHYROIDISM, HYPERCALCEMIA Septe mber 2024 10:06am E ORDERS/3 ORDERING DRS November 15, 2024 2:21pm HYPERPARATHYROIDISM November 20, 2024 12:45pm Reason for Visit Admit Date Osteoporosis August 26, 2024 1:50 pm Primary hyperparathyroidism August 26, 2 025 1:50pm Vitamin D deficiency August 26, 2024 1:5 0pm Primary hyperparathyroidism October 24, 2024 3:21pm Primary hyperparathyroidism November 202024 12:45pm Additional Source Comments INFORMATION SOURCE (unrecogn ized section and content) DATE CREATED AUTHOR 08/18/2017 [facility] DATE CREATED AUTHOR AUTHOR'S ORGANIZ ATION 10/19/2018 [facility] ([place]) DATE CREATED AUTHOR AUTHOR'S ORGANIZ ATION 12/13/2024 [facility] Goals (unrecognized section and content) Goals may be documented in a n alternate sectionGoals may be documented in an alternate sectionGoals may be documented in an alternate sectionGoals may be documented in an alternate sectionGoals may be documented in an alternate sectionGoals may be documented in an alternate sectionGoals may be documented in an alternate sectionGoals may be documented in an alternate sectionGoals may be documented in an alternate sectionGoals may be documented in an alternate sectionGoals may be documented in an alternate sectionGoals may be documented in an alternate sectionGoals may be documented in an alternate sectionGoals may be documented in an alternate sectionGoals may be documented in an alternate sectionGoals may be documented in an alternate sectionGoals may be documented in an alternate sectionGoals may be documented in an alternate sectionGoals may be documented in an alternate sectionGoals may be documented in an alternate section Care Teams (unrecognized sec tion and content) Team Status: Active Member Role Status Dates Dr. Jenaro Conroy MD Family Provider Active Dr. Danny Jeronimo MD Primary Care Provider Active Team Status: Inactive Member Role Status Dates Dr. Guicho Quezada MD Attending Provider, Referring Provi fabián Active Dr. Danny Jeronimo MD Primary Care Provider Active Team Status: Inactive Member Role Status Dates Dr. Danny Jeronimo MD Primary Care Provi fabián, Attending Provider, Referring Provider Active Dr. Guicho Quezada MD Other Provider Active Team Status: Inactive Member Role Status Dates Dr. Danny Jeronimo MD Primary Care Provider Active Dr. Guicho Quezada MD Attending Provider, Referring Provi fabián Active Team Status: Active Member Role Status Dates Dr. Danny Jeronimo MD Primary Care Provider Active Dr. Juaquin Kay DO Referring Provider, Other Pr ovider Active Dr. Charli Cano MD Attending Provider Active Team Status: Inactive Member Role Status Dates Dr. Danny Jeronimo MD Primary Care Provider Active Dr. Juaquin Kay DO Attending Provider, Referrin g Provider Active Team Status: Active Member Role Status Dates Dr. Jenaro Conroy MD Family Provider Active Katie Singleton DO Primary Care Provider Active Team Status: Inactive Member Role Status Dates Dr. Juaquin Kay DO Attending Provider, Referrin g Provider Active Katie Singleton DO Primary Care Provider Active Team Status: Inactive Member Role Status Dates Dr. Danny Jeronimo MD Referring Provider Active Dr. Guicho Quezada MD Attending Provider Active Katie Singleton DO Primary Care Provider Active Team Status: Inactive Member Role Status Dates Katie Singleton DO Primary Care Provi fabián, Attending Provider, Referring Provider Active Team Status: Inactive Member Role Status Dates Dr. Guicho Quezada MD Attending Provider, Referring Provi fabián Active Katie Singleton DO Primary Care Provider Active Team Status: Active Member Role Status Dates Dr. Jenaro Conroy MD Family Provider Active Se Bryan MD Primary Care Provider Active Team Status: Inactive Member Role Status Dates Katie Singleton DO Primary Care Provider, Referring Provider Active Reggie Leger PA, PA Attending Provider Active Team Status: Active Member Role Status Dates Dr. Juaquin Kay DO Referring Provider, Other Pr ovider Active Se Bryan MD Primary Care Provider Active Dr. Rachael Knutson MD Attending Provider Active Team Status: Inactive Member Role Status Dates Dr. Juaquin Kay DO Attending Provider, Referrin g Provider Active Se Bryan MD Primary Care Provider Active Team Status: Inactive Member Role/Relationship Status Willie Bryan MD Referring Provider Active Start : August 26, 2024 End: August 26, 2024 Dr. Guicho Quezada MD Attending Provider Active Sta rt: August 26, 2024 End: August 26, 2024 Team Status: Active Member Role/Relationship Status Willie Bryan MD Primary Care Provider Active Team Status: Inactive Member Role/Relationship Status Willie Bryan MD Referring Provider Active Start : August 26, 2024 End: August 26, 2024 Dr. Guicho Quezada MD Attending Provider Active Sta rt: August 26, 2024 End: August 26, 2024 Team Status: Inactive Member Role/Relationship Status Willie Bryan MD Primary Care Provider Active St art: August 26, 2024 End: August 26, 2024 Dr. Guicho Quezada MD Attending Provider Active Sta rt: August 26, 2024 End: August 26, 2024 Dr. Guicho Quezada MD Referring Provider Active Sta rt: August 26, 2024 End: August 26, 2024 Team Status: Inactive Member Role/Relationship Status Willie Bryan MD Primary Care Provider Active St art: August 28, 2024 End: August 28, 2024 Dr. Lorne Cherry MD Emergency Provider Active Sta rt: August 28, 2024 End: August 28, 2024 Team Status: Inactive Member Role/Relationship Status Willie Bryan MD Primary Care Provider Active St art: August 28, 2024 End: August 28, 2024 Dr. Lorne Cherry MD Attending Provider Active Sta rt: August 28, 2024 End: August 28, 2024 Dr. Lorne Cherry MD Emergency Provider Active Sta rt: August 28, 2024 End: August 28, 2024 Team Status: Inactive Member Role/Relationship Status Willie Bryan MD Primary Care Provider Active St art: October 11, 2024 End: October 11, 2024 Dr. Guicho Quezada MD Attending Provider Active Sta rt: October 11, 2024 End: October 11, 2024 Dr. Guicho Quezada MD Referring Provider Active Sta rt: October 11, 2024 End: October 11, 2024 Team Status: Inactive Member Role/Relationship Status Willie Bryan MD Primary Care Provider Active St art: October 24, 2024 End: October 24, 2024 Se Bryan MD Referring Provider Active Start : October 24, 2024 End: October 24, 2024 Dr. Guicho Quezada MD Attending Provider Active Sta rt: October 24, 2024 End: October 24, 2024 Team Status: Active Member Role/Relationship Status Willie Bryan MD Primary care physician Active Team Status: Inactive Member Role/Relationship Status Willie Bryan MD Referring Provider Active Start : August 26, 2024 End: August 26, 2024 Dr. Guicho Quezada MD Attending physician Active St art: August 26, 2024 End: August 26, 2024 Team Status: Inactive Member Role/Relationship Status Willie Bryan MD Primary care physician Active S tart: August 26, 2024 End: August 26, 2024 Dr. Guicho Quezada MD Attending physician Active St art: August 26, 2024 End: August 26, 2024 Dr. Guicho Quezada MD Referring Provider Active Sta rt: August 26, 2024 End: August 26, 2024 Team Status: Inactive Member Role/Relationship Status Willie Bryan MD Primary care physician Active S tart: August 28, 2024 End: August 28, 2024 Dr. Lorne Cherry MD Attending physician Active St art: August 28, 2024 End: August 28, 2024 Dr. Lorne Cherry MD Emergency Department Physician Acti ve Start: August 28, 2024 End: August 28, 2024 Team Status: Inactive Member Role/Relationship Status Willie Bryan MD Primary care physician Active S tart: October 11, 2024 End: October 11, 2024 Dr. Guicho Quezada MD Attending physician Active St art: October 11, 2024 End: October 11, 2024 Dr. Guicho Quezada MD Referring Provider Active Sta rt: October 11, 2024 End: October 11, 2024 Team Status: Inactive Member Role/Relationship Status Willie Bryan MD Primary care physician Active S tart: October 24, 2024 End: October 24, 2024 Se Bryan MD Referring Provider Active Start : October 24, 2024 End: October 24, 2024 Dr. Guicho Quezada MD Attending physician Active St art: October 24, 2024 End: October 24, 2024 Team Status: Inactive Member Role/Relationship Status Willie Bryan MD Primary care physician Active S tart: November 04, 2024 End: November 04, 2024 Dr. Guicho Quezada MD Attending physician Active St art: November 04, 2024 End: November 04, 2024 Dr. Guicho Quezada MD Referring Provider Active Sta rt: November 04, 2024 End: November 04, 2024 Team Status: Inactive Member Role/Relationship Status Willie Bryan MD Primary care physician Active S tart: November 05, 2024 End: November 05, 2024 Dr. Guicho Quezada MD Nurse Practitioner Active Sta rt: November 05, 2024 End: November 05, 2024 OMA Hernadez Attending physician Active Start: November 05, 2024 End: November 05, 2024 OMA Hernadez Referring Provider Active Start: November 05, 2024 End: November 05, 2024 Team Status: Active Member Role/Relationship Status Willie Bryan MD Primary care physician Active S tart: November 15, 2024 Dr. Guicho Quezada MD Attending physician Active St art: November 15, 2024 Dr. Guicho Quezada MD Referring Provider Active Sta rt: November 15, 2024 Kristie Montes NP-C Nurse Practitioner Active Start: November 15, 2024 Team Status: Inactive Member Role/Relationship Status Willie Bryan MD Primary care physician Active S tart: November 20, 2024 End: November 20, 2024 Se Bryan MD Referring Provider Active Start : November 20, 2024 End: November 20, 2024 Dr. Je Burnett MD Attending physician Active Start: November 20, 2024 End: November 20, 2024 Team Status: Inactive Member Role/Relationship Status Willie Bryan MD Primary care physician Active S tart: November 15, 2024 End: November 15, 2024 Dr. Guicho Quezada MD Attending physician Active St art: November 15, 2024 End: November 15, 2024 Dr. Guicho Quezada MD Referring Provider Active Sta rt: November 15, 2024 End: November 15, 2024 OMA Hernadez Nurse Practitioner Active Start: November 15, 2024 End: November 15, 2024 FOR RECORDS PERTAINING TO PATIENTS WHO ARE OR HAVE BEEN ENROLLED IN A CHEMICAL DEPENDENCY/SUBSTANCEABUSE PROGRAM, SOME INFORMATION MAY BE OMITTED. This clinical summary was aggregated from multiple sources. Caution should be exercised in using it in the provision of clinical care. This summary normalizes information from multiple sources, and as a consequence, information in this document may materially change the coding, format and clinical context of patient data. In addition, data may be omitted in some cases. CLINICAL DECISIONS SHOULD BE BASED ON THE PRIMARY CLINICAL RECORDS. [employer] provides no warranty or guarantee of the accuracy or completeness of information in this document.
--- OUTSIDE RECORDS SUMMARY | 2024-12-16 13:05 | XMS RPT_ITS | CCD ---
Author Organization [facility] Care Team Providers Care All Purpose Clerk Name Role Phone Dr. Jenaro Loo Referring [...] Provider King LEONARD, Dr. Lindo Attending Physician [phone] Randi VALLE, Se Primary Care Physician Dilip VALLE, Dr. Pradhan Attending Physician [phone] Dilip VALLE, Dr. Pradhan Emergency Department Physician King LEONARD, Dr. Lindo Nurse Practitioner Simon BUSINESS AND FINANCIAL COUNSEL-C, Kristie Attending Physician Simon BUSINESS AND FINANCIAL COUNSEL-C, Kristie Referring Provider Simon BUSINESS AND FINANCIAL COUNSEL-C, Kristie Nurse Practitioner Hortencia VALLE, Dr. Wooten Attending [...] 1 tablet by mouth once daily Vit C,V-Lu-Azizb-Lutein-Zeax an (Preservision Areds-2) 250-90-40-1 mg Capsule (20 sources) Start: 08-18-2021 take 2 capsules by mouth twice daily Start: 08-18-2021 take 2 capsules by m outh twice daily Vit C,M-Rl-Ndjet-Lutein-Zeaxan (Preservision Areds-2) 250-90-40-1 mg Capsule Active 1 {tbl} PO TWICE A DAY August 18, 2021 12:00am Start: 08-18-2021 Vit C,E-Zn-Circuit Clerk ra-Nbbtof-Yiilzv (Preservision Areds-2) 250-90-40-1 mg Capsule Active 1 TABLET PO TWICE A DAY August 17, 2021 11:00pm Start: 08-18-2021 Vit C,E-Zn-Circuit Clerk sb-Cukmvm-Mrulcl (Preservision Areds-2) 250-90-40-1 mg Capsule Active 1 TABLET PO TWICE A DAY August 18, 2021 12:00am Completed/Discontinued Medications Medication Drug Class(es) Dates Sig (Normalized) Sig (Original) [id number] actuat albuterol 0.09 mg/actuat metered dose [...] Bone Density Studyon Dexa Bone Density Study [facility] Imaging Services [address] [place] [address] [id number] Dexa Bone Density Study MR#: [id number] Acct: [id number] Name: YAJAIRA BUNN Rep #: [id number] : 1945 F 79 From: Rodo lua MD PCP: Dr. Se Bryan MD Status: REG CLI Study: Dexa Bone Density Study Date of Exam: 12/11/24 Exam# [id number] Ordering Dr: Se Bryan MD PROCEDURE: DEXA [...] Recommend follow-up as clinically warranted. Reading Location: [place] [address] CC: Dr. Se Bryan MD Event Specialist: Signed Normal [facility] SCRN MAMM (CAD)W/OMEGA BILATo n 12-11-2024 SCRN MAMM (CAD)W/OMEGA BILAT [facility] Imaging Services [address] [place] [address] SCRN MAMM (CAD)W/OMEGA BILAT MR#: [id number] Acct: [id number] Name: YAJAIRA BUNN Rep #: [id number] : 1945 F 79 From: Rodo lua MD PCP: Dr. Se Bryan MD Status: REG CLI Study: SCRN MAMM (CAD)W/OMEGA BILAT Date of Exam: 11/27 07/21 Exam# [id number] Ordering Dr: Se Bryan MD EXAM: SCRN [...] be mailed to the patient. Reading Location: [place] [address] CC: Dr. Se Bryan MD Event Specialist: Signed Normal [facility] Basic Metabolic Profile (BMP )on 12-03-2024 BUN/CRE 17.9 RATIO Normal 10-20 [facility] Comment on above: Performed By: #### L 500.2500 #### [facility] Laboratory [address] [facility] [place], [place], [id number] Calcium [Mass/Vol] 10.4 mg/dL Normal 7.6-11.0 [facility] Comment on above: Performed By: #### L 500.2500 #### [facility] [address] [place], [address] Chloride [Moles/Vol] 106 mmol/L Normal 98-108 [facility] Comment on above: Performed By: #### L 500.2500 #### [facility] [address] [place], [address] CO2 [Moles/Vol] 21.3 mmol/L Normal 21.0-32.0 [facility] Comment on above: Performed By: #### L 500.2500 #### [facility] [address] [place], [address] Creatinine [Mass/Vol] 1.05 mg/dL Normal 0.70-1.20 [facility] Comment on above: Performed By: #### L 500.2500 #### [facility] [address] [place], [address] GAP 10 Normal 5-15 [facility] Comment on above: Performed By: #### L 500.2500 #### [facility] [address] [place], [address] GFR/1.73 sq M.predicted among non-blacks MDRD (S/P/Bld) [Vol rate/Area] 55 mL/min/{1.73_m2} Low >60 [facility] Comment on above: Result Comment: mL/m in/1.73m2 CKD-EPI Creatinine Equation (2020) Performed By: #### L 500.2500 #### [facility] [address] [place], [address] Glucose [Mass/Vol] 88 mg/dL Normal 70-99 [facility] Comment on above: Performed By: #### L 500.2500 #### [facility] [address] [place], [address] Potassium [Moles/Vol] 4.5 mmol/L Normal 3.3-5.1 [facility] Comment on above: Performed By: #### L 500.2500 #### [facility] [address] [place], [address] Sodium [Moles/Vol] 137 mmol/L Normal 133-145 [facility] Comment on above: Performed By: #### L 500.2500 #### [facility] [address] [place], [place], [address] Urea nitrogen [Mass/Vol] 19 mg/dL Normal 4-19 [facility] Comment on above: Performed By: #### L 500.2500 #### [facility] [address] [place], [address] Surgery Visit Reporton 11-20 Surgery Visit Report [facility] [address] [place] [address] OFFICE VISIT Date of Service: 11/20/24 MR#: [id number] Acct: [id number] Name: YAJAIRA BUNN Rep #: [id number] : 1945 Provider: Dr. Je bar MD Age/Sex: 79/F Location: [facility] Status: Signed Intake Vital Signs 10/24/24 15:21 [...] BID 08/18/21 11/20/24 His tory mg-copper 1 da-erpmsi-pxtjgh capsule (PreserVision AREDS-2) denosumab 60 mg/mL subcutaneous 60 mg subcut [id number] #1 mL 11/20/24 Rx syringe (Prolia) cholecalciferol [...] initially identified by Dr. Jenaro Conroy at [facility] due to elevated calcium levels exceeding [...] ng/mL (08/27/2024), (more content not included)... Normal [facility] Absolute lymphocyte countOrd ered By: Se Bryan on 11-15-2024 Lymphocytes Auto (Unsp spec) [#/Vol] 1.29 10*3/uL 0.83-4.51 [facility] Absolute neutrophil countOrd ered By: Se Bryan on 11-15-2024 Neutrophils (Bld) [#/Vol] 5.0 10*3/uL 2.0-7.7 [facility] Anion gap in Serum or Plasma Ordered By: Se Bryan on 11-15-2024 Anion gap [Moles/Vol] 12 mmol/L 5-15 [facility] Automated lymphocyte count a s percentage of total leukocytesOrdered By: Se Stricklandke on 11-15-2024 Lymphocytes/100 WBC Auto (Unsp spec) 17.3 % Low 19-41 [facility] BUN/creatinine ratioOrdered By: Paigemary Randi on 11-15-2024 Urea nitrogen/Creatinine [Mass ratio] 14.1 mg/mg 10- [facility] Basic Metabolic Profile (BMP )on 11-15-2024 BUN/CRE 13.6 RATIO Normal - [facility] Comment on above: Performed By: #### L 500.4050, L100.0100 #### [facility] [address] [place], [address] Calcium [Mass/Vol] 10.7 mg/dL Normal 7.6-11.0 [facility] Comment on above: Performed By: #### L 500.4050, L100.0100 #### [facility] [address] [place], [address] Chloride [Moles/Vol] 106 mmol/L Normal 98-108 [facility] Comment on above: Performed By: #### L 500.4050, L100.0100 #### [facility] [address] [place], [address] CO2 [Moles/Vol] 20.0 mmol/L Low 21.0-32.0 [facility] Comment on above: Performed By: #### L 500.4050, L100.0100 #### [facility] [address] [place], [address] Creatinine [Mass/Vol] 1.05 mg/dL Normal 0.70-1.20 [facility] Comment on above: Performed By: #### L 500.4050, L100.0100 #### [facility] [address] [place], [address] GAP 12 Normal 5-15 [facility] Comment on above: Performed By: #### L 500.4050, L100.0100 #### [facility] [address] [place], [address] GFR/1.73 sq M.predicted among non-blacks MDRD (S/P/Bld) [Vol rate/Area] 55 mL/min/{1.73_m2} Low >60 [facility] Comment on above: Result Comment: mL/m in/1.73m2 CKD-EPI Creatinine Equation (2020) Performed By: #### L 500.4050, L100.0100 #### [facility] [address] [place], [address] Glucose [Mass/Vol] 116 mg/dL High 70-99 [facility] Comment on above: Performed By: #### L 500.4050, L100.0100 #### [facility] [address] [place], [address] Potassium [Moles/Vol] 4.2 mmol/L Normal 3.3-5.1 [facility] Comment on above: Performed By: #### L 500.4050, L100.0100 #### [facility] [address] [place], [address] Sodium [Moles/Vol] 138 mmol/L Normal 133-145 [facility] Comment on above: Performed By: #### L 500.4050, L100.0100 #### [facility] [address] [place], [address] Urea nitrogen [Mass/Vol] 14 mg/dL Normal 4-19 [facility] Comment on above: Performed By: #### L 500.4050, L100.0100 #### [facility] [address] [place], [address] Basophil percentageOrdered B y: Se Bryan on 11-15-2024 Basophils/100 WBC (Bld) 0.5 % 0-1 [facility] Bilirubin, totalOrdered By: Se Bryan on 11-15-2024 Bilirubin [Mass/Vol] 0.28 mg/dL 0.00-1.30 [facility] CBC W/Diff, Automatedon 10-28 Absolute Lymph 1.29 X10 3/uL Normal 0.83-4.51 [facility] Comment on above: Order Comment: Order Date: 07/05/24Order Info: [id number] - CBCD Performed By: #### L 500.4050, L100.0100 #### [facility] [address] [place], [address] Absolute Neut 5.0 X10 3/uL Normal 2.0-7.7 [facility] Comment on above: Order Comment: Order Date: 07/05/24Order Info: [id number] - CBCD Performed By: #### L 500.4050, L100.0100 #### [facility] [address] [place], [address] Basophils/100 WBC (Bld) 0.5 % Normal 0-1 [facility] Comment on above: Order Comment: Order Date: 07/05/24Order Info: [id number] - CBCD Performed By: #### L 500.4050, L100.0100 #### [facility] [address] [place], [address] Eosinophils/100 WBC (Bld) 3.6 % Normal 0-5 [facility] Comment on above: Order Comment: Order Date: 07/05/24Order Info: [id number] - CBCD Performed By: #### L 500.4050, L100.0100 #### [facility] [address] [place], [address] Erythrocyte distribution width (RBC) [Ratio] 12.3 % Normal 11.6-14.6 [facility] Comment on above: Order Comment: Order Date: 07/05/24Order Info: [id number] - CBCD Performed By: #### L 500.4050, L100.0100 #### [facility] [address] [place], [address] Hematocrit (Bld) [Volume fraction] 32.5 % Low 37-47 [facility] Comment on above: Order Comment: Order Date: 07/05/24Order Info: [id number] - CBCD Performed By: #### L 500.4050, L100.0100 #### [facility] [address] [place], [address] Hemoglobin (Bld) [Mass/Vol] 11.3 g/dL Low 12.0-15.0 [facility] Comment on above: Order Comment: Order Date: 07/05/24Order Info: 018- - CBCD Performed By: #### L 500.4050, L100.0100 #### [facility] [address] [place], [address] IG% 0.400 Normal 0.0-0.9 [facility] Comment on above: Order Comment: Order Date: 07/05/24Order Info: 018- - CBCD Result Comment: IG% - Immature Granulocytes (promyelocytes, myelocytes and metamyelocytes) > 1% indicates that a LEFT SHIFT is Present. Performed By: #### L 500.4050, L100.0100 #### [facility] [address] [place], [address] Lymphocytes/100 WBC (Bld) 17.3 % Low 19-41 [facility] Comment on above: Order Comment: Order Date: 07/05/24Order Info: [id number]- - CBCD Performed By: #### L 500.4050, L100.0100 #### [facility] [address] [place], [address] MCH (RBC) [Entitic mass] 32.2 pg High 27.0-32.0 [facility] Comment on above: Order Comment: Order Date: 07/05/24Order Info: [id number] - CBCD Performed By: #### L 500.4050, L100.0100 #### [facility] [address] [place], [address] MCHC (RBC) [Mass/Vol] 34.8 g/dL Normal 32-36 [facility] Comment on above: Order Comment: Order Date: 07/05/24Order Info: [id number] - CBCD Performed By: #### L 500.4050, L100.0100 #### [facility] [address] [place], [address] MCV (RBC) [Entitic vol] 92.6 fL Normal 81-99 [facility] Comment on above: Order Comment: Order Date: 07/05/24Order Info: [id number] - CBCD Performed By: #### L 500.4050, L100.0100 #### [facility] [address] [place], [address] Monocytes/100 WBC (Bld) 11.0 % High 0-10 [facility] Comment on above: Order Comment: Order Date: 07/05/24Order Info: [id number] - CBCD Performed By: #### L 500.4050, L100.0100 #### [facility] [address] [place], [address] Neutrophils/100 WBC (Bld) 67.2 % Normal 47-70 [facility] Comment on above: Order Comment: Order Date: 07/05/24Order Info: [id number] - CBCD Performed By: #### L 500.4050, L100.0100 #### [facility] [address] [place], [address] Nucleated RBC (Bld) [#/Vol] 0 10*3/uL Normal 0-5 [facility] Comment on above: Order Comment: Order Date: 07/05/24Order Info: [id number] - CBCD Performed By: #### L 500.4050, L100.0100 #### [facility] [address] [place], [address] Platelet mean volume (Bld) [Entitic vol] 10.0 fL Normal 6.2-12.0 [facility] Comment on above: Order Comment: Order Date: 07/05/24Order Info: [id number] - CBCD Performed By: #### L 500.4050, L100.0100 #### [facility] [address] [place], [address] Platelets (Bld) [#/Vol] 256 10*3/uL Normal 150-450 [facility] Comment on above: Order Comment: Order Date: 07/05/24Order Info: [id number] - CBCD Performed By: #### L 500.4050, L100.0100 #### [facility] [address] [place], [address] RBC (Bld) [#/Vol] 3.51 10*6/uL Low 4.2-5.4 [facility] Comment on above: Order Comment: Order Date: 07/05/24Order Info: [id number] - CBCD Performed By: #### L 500.4050, L100.0100 #### [facility] [address] [place], [address] RDW SD 41.8 fl Normal 35.1-43.9 [facility] Comment on above: Order Comment: Order Date: 07/05/24Order Info: [id number] - CBCD Performed By: #### L 500.4050, L100.0100 #### [facility] [address] [place], [address] WBC (Bld) [#/Vol] 7.5 10*3/uL Normal 4.4-11.0 [facility] Comment on above: Order Comment: Order Date: 07/05/24Order Info: [id number] - CBCD Performed By: #### L 500.4050, L100.0100 #### [facility] [address] [place], [address] Calculated very low density lipoprotein (VLDL) cholesterol measurementOrdered By: Paigemary Randi on 11-15-2024 Calculated very low density lipoprotein (VLDL) cholesterol measurement 33 mg/dL 5-40 [facility] Carbon dioxide, total [Moles /volume] in Central venous bloodOrdered By: Paigemary Stricklandke on 11-15-2024 CO2 [Moles/Vol] 20.1 mmol/L Low 21.0-32.0 [facility] Chloride assayOrdered By: Ruth Bryan on 11-15-2024 Chloride [Moles/Vol] 106 mmol/L 98-108 [facility] Comprehensive Metabolic Prof ilon 11-15-2024 Albumin [Mass/Vol] 4.3 g/dL Normal 3.4-4.8 [facility] Comment on above: Order Comment: Order Date: 07/05/24Order Info: [id number] - CMPOrder Info: [id number] - LIPIDOrder Info: [id number] - TSH Performed By: #### L 500.4050, L100.0100 #### [facility] [address] [place], [address] Albumin/Globulin [Mass ratio] 1.7 {ratio} Normal 0.9-2.4 [facility] Comment on above: Order Comment: Order Date: 07/05/24Order Info: [id number] - CMPOrder Info: [id number] - LIPIDOrder Info: [id number] - TSH Performed By: #### L 500.4050, L100.0100 #### [facility] [address] [place], [address] ALK PHOS 55 U/L Normal 35-104 [facility] Comment on above: Order Comment: Order Date: 07/05/24Order Info: [id number] - CMPOrder Info: [id number] - LIPIDOrder Info: [id number] - TSH Performed By: #### L 500.4050, L100.0100 #### [facility] [address] [place], [address] ALT [Catalytic activity/Vol] 17 U/L Normal <=34 [facility] Comment on above: Order Comment: Order Date: 07/05/24Order Info: 86-1 - CMPOrder Info: [id number] - LIPIDOrder Info: [id number] - TSH Performed By: #### L 500.4050, L100.0100 #### [facility] [address] [place], [address] AST [Catalytic activity/Vol] 22 U/L Normal <=31 [facility] Comment on above: Order Comment: Order Date: 07/05/24Order Info: 86-1 - CMPOrder Info: [id number] - LIPIDOrder Info: 6-3 - TSH Performed By: #### L 500.4050, L100.0100 #### [facility] [address] [place], [address] Bilirubin [Mass/Vol] 0.28 mg/dL Normal 0.00-1.30 [facility] Comment on above: Order Comment: Order Date: 07/05/24Order Info: [id number] - CMPOrder Info: [id number] - LIPIDOrder Info: 6-3 - TSH Performed By: #### L 500.4050, L100.0100 #### [facility] [address] [place], [address] BUN/CRE 14.1 RATIO Normal 10-20 [facility] Comment on above: Order Comment: Order Date: 07/05/24Order Info: 86-1 - CMPOrder Info: [id number] - LIPIDOrder Info: [id number] - TSH Performed By: #### L 500.4050, L100.0100 #### [facility] [address] [place], [address] Calcium [Mass/Vol] 11.0 mg/dL Normal 7.6-11.0 [facility] Comment on above: Order Comment: Order Date: 07/05/24Order Info: 86-1 - CMPOrder Info: [id number] - LIPIDOrder Info: 6-3 - TSH Performed By: #### L 500.4050, L100.0100 #### [facility] [address] [place], [address] Chloride [Moles/Vol] 106 mmol/L Normal 98-108 [facility] Comment on above: Order Comment: Order Date: 07/05/24Order Info: 86-1 - CMPOrder Info: [id number] - LIPIDOrder Info: [id number] - TSH Performed By: #### L 500.4050, L100.0100 #### [facility] [address] [place], [address] CO2 [Moles/Vol] 20.1 mmol/L Low 21.0-32.0 [facility] Comment on above: Order Comment: Order Date: 07/05/24Order Info: 07- - CMPOrder Info: - LIPIDOrder Info: [id number] - TSH Performed By: #### L 500.4050, L100.0100 #### [facility] [address] [place], [address] Creatinine [Mass/Vol] 1.02 mg/dL Normal 0.70-1.20 [facility] Comment on above: Order Comment: Order Date: 07/05/24Order Info: [id number] - CMPOrder Info: [id number] - LIPIDOrder Info: [id number] - TSH Performed By: #### L 500.4050, L100.0100 #### [facility] [address] [place], [address] GAP 12 Normal 5-15 [facility] Comment on above: Order Comment: Order Date: 07/05/24Order Info: [id number] - CMPOrder Info: [id number] - LIPIDOrder Info: 6-3 - TSH Performed By: #### L 500.4050, L100.0100 #### [facility] [address] [place], [address] GFR/1.73 sq M.predicted among non-blacks MDRD (S/P/Bld) [Vol rate/Area] 57 mL/min/{1.73_m2} Low >60 [facility] Comment on above: Order Comment: Order Date: 07/05/24Order Info: 86-1 - CMPOrder Info: [id number] - LIPIDOrder Info: [id number] - TSH Result Comment: mL/m in/1.73m2 CKD-EPI Creatinine Equation (2020) Performed By: #### L 500.4050, L100.0100 #### [facility] [address] [place], [address] Globulin (S) [Mass/Vol] 2.5 g/dL Normal 2.2-4.2 [facility] Comment on above: Order Comment: Order Date: 07/05/24Order Info: [id number] - CMPOrder Info: [id number] - LIPIDOrder Info: 6-3 - TSH Performed By: #### L 500.4050, L100.0100 #### [facility] [address] [place], [address] Glucose [Mass/Vol] 87 mg/dL Normal 70-99 [facility] Comment on above: Order Comment: Order Date: 07/05/24Order Info: [id number] - CMPOrder Info: [id number] - LIPIDOrder Info: [id number] - TSH Performed By: #### L 500.4050, L100.0100 #### [facility] [address] [place], [address] Potassium [Moles/Vol] 4.1 mmol/L Normal 3.3-5.1 [facility] Comment on above: Order Comment: Order Date: 07/05/24Order Info: 86-1 - CMPOrder Info: [id number] - LIPIDOrder Info: [id number] - TSH Performed By: #### L 500.4050, L100.0100 #### [facility] [address] [place], [address] Sodium [Moles/Vol] 138 mmol/L Normal 133-145 [facility] Comment on above: Order Comment: Order Date: 07/05/24Order Info: [id number] - CMPOrder Info: [id number] - LIPIDOrder Info: [id number] - TSH Performed By: #### L 500.4050, L100.0100 #### [facility] [address] [place], [address] T PROT 6.8 g/dL Normal 5.9-8.4 [facility] Comment on above: Order Comment: Order Date: 07/05/24Order Info: [id number] - CMPOrder Info: [id number] - LIPIDOrder Info: [id number] - TSH Performed By: #### L 500.4050, L100.0100 #### [facility] [address] [place], [address] Urea nitrogen [Mass/Vol] 14 mg/dL Normal 4-19 [facility] Comment on above: Order Comment: Order Date: 07/05/24Order Info: [id number] - CMPOrder Info: [id number] - LIPIDOrder Info: [id number] - TSH Performed By: #### L 500.4050, L100.0100 #### [facility] [address] [place], [address] Eosinophil percentageOrdered By: Se Bryan on 11-15-2024 Eosinophils/100 WBC (Bld) 3.6 % 0-5 [facility] Erythrocyte distribution wid th ratioOrdered By: Se Bryan on 11-15-2024 Erythrocyte distribution width (RBC) [Ratio] 12.3 % 11.6-14.6 [facility] Erythrocyte distribution wid th standard deviationOrdered By: Se Bryan on 11-15-2024 Erythrocyte distribution width (RBC) [Ratio] 41.8 fl 35.1-43.9 [facility] Glomerular filtration rate ( GFR) estimation/1.73 sq m using serum, plasma, or whole bOrdered By: Se Bryan on 11-15-2024 GFR/1.73 sq M.predicted among non-blacks MDRD (S/P/Bld) [Vol rate/Area] 57 mL/min/{1.73_m2} Low >60 [facility] Comment on above: mL/min/1.73m2 CKD-EP I Creatinine Equation (2020) Hematocrit Auto (Bld) [Volum e fraction]Ordered By: Paigemary Bryan on 11-15-2024 Hematocrit (Bld) [Volume fraction] 32.5 % Low 37-47 [facility] Hemoglobin measurementOrdere d By: Se Randi on 11-15-2024 Hemoglobin (Bld) [Mass/Vol] 11.3 g/dL Low 12.0-15.0 [facility] Immature granulocytes/100 WB C Auto (Bld)Ordered By: Paigemary Bryan on 11-15-2024 Immature granulocytes/100 WBC (Bld) 0.400 % 0.0-0.9 [facility] Comment on above: IG% - Immature Granu locytes (promyelocytes, myelocytes and metamyelocytes) > 1% indicates that a LEFT SHIFT is Present. LDL calc ser/plasOrdered By: Paigemary Bryan on 11-15-2024 Cholesterol in LDL [Mass/Vol] 79 mg/dL [facility] Comment on above: Zpwwuspdzk=868-970 m g/dL & Higher Edqt=728 mg/dL or greaterFriedwald Equation for LDL-C Laboratory - Chemistry and C hemistry - challengeOrdered By: Paigemary Bryan on 11-15-2024 AST [Catalytic activity/Vol] 22 U/L <32 [facility] [facility] Lipid Profileon 11-15-2024 CHOL:HDL 2.56 Normal [facility] Comment on above: Order Comment: Order Date: 07/05/24Order Info: [id number] - CMPOrder Info: [id number] - LIPIDOrder Info: [id number] - TSH Performed By: #### L 500.4050, L100.0100 #### [facility] [address] [place], [address] Cholesterol [Mass/Vol] 184 mg/dL Normal <=200 [facility] Comment on above: Order Comment: Order Date: 07/05/24Order Info: [id number] - CMPOrder Info: [id number] - LIPIDOrder Info: [id number] - TSH Result Comment: Chol esterol level, Desirable <200 mg/dL Borderline high cholesterol 200-239 mg/dL High cholesterol >=240 mg/dL Recommendations of the NCEP Adult Treatment Panel for the following risk-cutoff thresholds for the [place] population. Performed By: #### L 500.4050, L100.0100 #### [facility] [address] [place], [address] Cholesterol in HDL [Mass/Vol] 72 mg/dL Normal [facility] Comment on above: Order Comment: Order Date: 07/05/24Order Info: [id number] - CMPOrder Info: [id number] - LIPIDOrder Info: [id number] - TSH Result Comment: Fay onal Cholesterol Education Program (NCEP) guidelines: <40 mg/dL: Low HDL-cholesterol (major risk factor for CHD) >= 60 mg/dL: High HDL-cholesterol (negative risk factor for CHD) HDL-cholesterol is affected by a number of factors, e.g. smoking, exercise, hormones, sex and age. Performed By: #### L 500.4050, L100.0100 #### [facility] [address] [place], [place], [id number] (954) Cholesterol in LDL [Mass/Vol] 79 mg/dL Normal [facility] Comment on above: Order Comment: Order Date: 07/05/24Order Info: [id number] - CMPOrder Info: [id number] - LIPIDOrder Info: [id number] - TSH Result Comment: Bord kweaxg=303-590 mg/dL Higher Bvkp=021 mg/dL or greater Friedwald Equation for LDL-C Performed By: #### L 500.4050, L100.0100 #### [facility] [address] [place], [place], [address] (599) Cholesterol in VLDL [Mass/Vol] 33 mg/dL Normal 5-40 [facility] Comment on above: Order Comment: Order Date: 07/05/24Order Info: [id number] - CMPOrder Info: [id number] - LIPIDOrder Info: [id number] - TSH Performed By: #### L 500.4050, L100.0100 #### [facility] [address] [place], [place], [address] Triglyceride [Mass/Vol] 163 mg/dL Normal [facility] Comment on above: Order Comment: Order Date: 07/05/24Order Info: [id number] - CMPOrder Info: [id number] - LIPIDOrder Info: [id number] - TSH Result Comment: The drugs N-Acetylcysteine and Metamizole may falsely depress this assay. Normal range: <150 mg/dL Borderline High: 150-199 mg/dL High: 200-499 mg/dL Very High: >500 mg/dL Performed By: #### L 500.4050, L100.0100 #### [facility] [address] [place], [place], [address] MCV (mean corpuscular volume ) determinationOrdered By: Se Bryan on 11-15-2024 MCV (RBC) [Entitic vol] 92.6 fL 81-99 [facility] Mean corpuscular hemoglobin (MCH) determinationOrdered By: Se Bryan on 11-15-2024 MCH (RBC) [Entitic mass] 32.2 pg High 27.0-32.0 [facility] Mean corpuscular hemoglobin concentration (MCHC) determinationOrdered By: Se Bryan on 11-15-2024 MCHC (RBC) [Mass/Vol] 34.8 g/dL 32-36 [facility] Mean platelet volume determi nationOrdered By: Se Bryan on 11-15-2024 Platelet mean volume (Bld) [Entitic vol] 10.0 fL 6.2-12.0 [facility] Monocyte percentageOrdered B y: Se Bryan on 11-15-2024 Monocytes/100 WBC (Bld) 11.0 % High 0-10 [facility] Neutrophil percentageOrdered By: Se Bryan on 11-15-2024 Neutrophils/100 WBC (Bld) 67.2 % 47-70 [facility] Nucleated red blood cell per centageOrdered By: Se Bryan on 11-15-2024 Nucleated RBC/100 WBC (Bld) [Ratio] 0 % 0-5 [facility] PTHINon 11-15-2024 PTH 249 pg/mL High 11-61 [facility] Comment on above: Performed By: #### L 500.2500 #### [facility] [address] [place], [address] Platelet countOrdered By: Ruth Bryan on 11-15-2024 Platelets (Bld) [#/Vol] 256 10*3/uL 150-450 [facility] Potassium measurement (mass/ volume)Ordered By: Se Bryan on 11-15-2024 Potassium (Unsp spec) [Mass/Vol] 4.1 mmol/L 3.3-5.1 [facility] RBC Auto (Bld) [#/Vol]Ordere d By: Se Bryan on 11-15-2024 RBC (Bld) [#/Vol] 3.51 10*6/uL Low 4.2-5.4 [facility] Screening total cholesterol/ high density lipoprotein (HDL) cholesterol ratioOrdered By: Se Bryan on 11-15-2024 Cholesterol.total/Mirian sterol in HDL [Mass ratio] 2.56 {ratio} [facility] Serum creatinine measurement (mass/volume)Ordered By: Se Bryan on 11-15-2024 Creatinine [Mass/Vol] 1.02 mg/dL 0.70-1.20 [facility] Serum globulin measurementOr dered By: Se Bryan on 11-15-2024 Globulin (S) [Mass/Vol] 2.5 g/dL 2.2-4.2 [facility] Serum glucose measurement (m ass/volume)Ordered By: Se Bryan on 11-15-2024 Glucose [Mass/Vol] 87 mg/dL 70-99 [facility] Serum or plasma alanine maciel otransferase (ALT) measurementOrdered By: Se Bryan on 11-15-2024 ALT [Catalytic activity/Vol] 17 U/L <35 [facility] Serum or plasma albumin rodriguez urement (mass/volume)Ordered By: Se Bryan on 11-15-2024 Albumin [Mass/Vol] 4.3 g/dL 3.4-4.8 [facility] Serum or plasma albumin/glob ulin mass ratioOrdered By: Se Bryan on 11-15-2024 Albumin/Globulin [Mass ratio] 1.7 {ratio} 0.9-2.4 [facility] Serum or plasma alkaline ana sphatase measurementOrdered By: Se Bryan on 11-15-2024 ALP [Catalytic activity/Vol] 55 U/L 35-104 [facility] Serum or plasma calcium rodriguez urement (mass/volume)Ordered By: Se Bryan on 11-15-2024 Calcium [Mass/Vol] 11.0 mg/dL 7.6-11.0 [facility] Serum or plasma cholesterol in HDL measurement (mass/volume)Ordered By: Se Bryan on 11-15-2024 Cholesterol in HDL [Mass/Vol] 72 mg/dL >40 [facility] Comment on above: National Cholesterol Education Program (NCEP) guidelines:<40 mg/dL: Low HDL-cholesterol (major risk factor for CHD)>= 60 mg/dL: High HDL-cholesterol (negative risk factor for CHD)HDL-cholesterol is affected by a number of factors, e.g. smoking, exercise, hormones, sex and age. Serum or plasma cholesterol measurement (mass/volume)Ordered By: Se Bryan on 11-15-2024 Cholesterol [Mass/Vol] 184 mg/dL <201 [facility] Comment on above: Cholesterol level, D esirable <200 mg/dLBorderline high cholesterol 200-239 mg/dLHigh cholesterol >=240 mg/dLRecommendations of the NCEP Adult Treatment Panel for the following risk-cutoff thresholds for the [place] population. Serum or plasma urea nitroge n measurement (mass/volume)Ordered By: Se Bryan on 11-15-2024 Urea nitrogen [Mass/Vol] 14 mg/dL 4-19 [facility] Sodium levelOrdered By: Paige Bryan on 11-15-2024 Sodium [Moles/Vol] 138 mmol/L 133-145 [facility] TSH DL <= 0.005 mIU/L QnOrde red By: Se Bryan on 11-15-2024 TSH Qn 1.730 uIU/mL 0.300-4.200 [facility] Thyroid Stim Hormone (TSH)on 11-15-2024 TSH 1.730 uIU/mL Normal 0.300-4.200 [facility] Comment on above: Order Comment: Order Date: 07/05/24Order Info: [id number] - CMPOrder Info: [id number] - LIPIDOrder Info: [id number] - TSH Performed By: #### L 500.4050, L100.0100 #### [facility] [address] [place], [place], [address] Total proteinOrdered By: Amelia Bryan on 11-15-2024 Protein [Mass/Vol] 6.8 g/dL 5.9-8.4 [facility] Triglycerides measurementOrd ered By: Se Bryan on 11-15-2024 Triglyceride [Mass/Vol] 163 mg/dL <199 [facility] Comment on above: The drugs N-Acetylcy steine and Metamizole may falsely depress this assay. Normal range: <150 mg/dLBorderline High: 150-199 mg/dLHigh: 200-499 mg/dLVery High: >500 mg/dL White blood cell (WBC) count Ordered By: Se Bryan on 11-15-2024 WBC (Bld) [#/Vol] 7.5 10*3/uL 4.4-11.0 [facility] Parathyroid Scanon Parathyroid scan [facility] Imaging Services [address] [place], [place] [address] Parathyroid Scan MR#: [id number] Acct: [id number] Name: YAJAIRA BUNN Rep #: [id number] : 1945 F 79 From: Richard Porter PCP: Dr. Se Bryan MD Status: REG CLI Study: Parathyroid Scan Date of Exam: 11/05/24 Exam# [id number] Ordering Dr: Guicho Quezada MD PROCEDURE: PARATHYROID [...] a left inferior parathyroid adenoma. Reading Location: [place] [address] CC: OMA Montes; Dr. Se Bryan MD; Dr. Guicho Quezada MD Event Specialist: Signed Normal [facility] Thyroidon 11-04-2024 Thyroid [facility] Imaging Services [address] [place] [id number] Thyroid MR#: [id number] Acct: [id number] Name: YAJAIRA BUNN Rep #: [id number] : 1945 F 79 From: Rodo lua MD PCP: Dr. Se Bryan MD Status: REG CLI Study: Thyroid Date of Exam: 11/04/24 Exam# [id number] Ordering Dr: Guicho Quezada MD PROCEDURE: THYROID [...] no more than 2 nodules. Reading Location: [facility] CC: Dr. Se Bryan MD; Dr. Guicho Quezada MD Event Specialist: Signed Normal [facility] Endocrinology Visit Reporton 10-24-2024 Endocrinology Visit Report [facility] 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 Normal [facility] Anion gap in Serum or Plasma Ordered By: Guicho Quezada on 10-11-2024 Anion gap [Moles/Vol] 11 mmol/L - [facility] BUN/creatinine ratioOrdered By: Guicho Quezada on 10-11-2024 Urea nitrogen/Creatinine [Mass ratio] 15.5 mg/mg 10- [facility] Bilirubin, totalOrdered By: Guicho Quezada on 10-11-2024 Bilirubin [Mass/Vol] 0.22 mg/dL 0.00-1.30 [facility] Carbon dioxide, total [Moles /volume] in Central venous bloodOrdered By: Guicho Quezada on 10-11-2024 CO2 [Moles/Vol] 22.6 mmol/L 21.0-32.0 [facility] Chloride assayOrdered By: Demar Quezada on 10-11-2024 Chloride [Moles/Vol] 104 mmol/L 98-108 [facility] Comprehensive Metabolic Prof ilon 10-11-2024 Albumin [Mass/Vol] 4.5 g/dL Normal 3.4-4.8 [facility] Comment on above: Performed By: #### L 500.4050, L100.0100 #### [facility] [address] [place], [address] Albumin/Globulin [Mass ratio] 1.7 {ratio} Normal 0.9-2.4 [facility] Comment on above: Performed By: #### L 500.4050, L100.0100 #### [facility] [address] [place], [address] ALK PHOS 71 U/L Normal 35-104 [facility] Comment on above: Performed By: #### L 500.4050, L100.0100 #### [facility] [address] [place], [address] ALT [Catalytic activity/Vol] 18 U/L Normal <=34 [facility] Comment on above: Performed By: #### L 500.4050, L100.0100 #### [facility] [address] [place], [address] AST [Catalytic activity/Vol] 21 U/L Normal <=31 [facility] Comment on above: Performed By: #### L 500.4050, L100.0100 #### [facility] [address] [place], [address] Bilirubin [Mass/Vol] 0.22 mg/dL Normal 0.00-1.30 [facility] Comment on above: Performed By: #### L 500.4050, L100.0100 #### [facility] [address] [place], [address] BUN/CRE 15.5 RATIO Normal 10-20 [facility] Comment on above: Performed By: #### L 500.4050, L100.0100 #### [facility] [address] [place], [address] Calcium [Mass/Vol] 12.1 mg/dL High 7.6-11.0 [facility] Comment on above: Performed By: #### L 500.4050, L100.0100 #### [facility] [address] [place], [address] Chloride [Moles/Vol] 104 mmol/L Normal 98-108 [facility] Comment on above: Performed By: #### L 500.4050, L100.0100 #### [facility] [address] [place], [address] CO2 [Moles/Vol] 22.6 mmol/L Normal 21.0-32.0 [facility] Comment on above: Performed By: #### L 500.4050, L100.0100 #### [facility] [address] [place], [address] Creatinine [Mass/Vol] 1.07 mg/dL Normal 0.70-1.20 [facility] Comment on above: Performed By: #### L 500.4050, L100.0100 #### [facility] [address] [place], [address] GAP 11 Normal 5-15 [facility] Comment on above: Performed By: #### L 500.4050, L100.0100 #### [facility] [address] [place], [address] GFR/1.73 sq M.predicted among non-blacks MDRD (S/P/Bld) [Vol rate/Area] 53 mL/min/{1.73_m2} Low >60 [facility] Comment on above: Result Comment: mL/m in/1.73m2 CKD-EPI Creatinine Equation (2020) Performed By: #### L 500.4050, L100.0100 #### [facility] [address] [place], [address] Globulin (S) [Mass/Vol] 2.6 g/dL Normal 2.2-4.2 [facility] Comment on above: Performed By: #### L 500.4050, L100.0100 #### [facility] [address] [place], [address] Glucose [Mass/Vol] 100 mg/dL High 70-99 [facility] Comment on above: Performed By: #### L 500.4050, L100.0100 #### [facility] [address] [place], [address] Potassium [Moles/Vol] 4.3 mmol/L Normal 3.3-5.1 [facility] Comment on above: Performed By: #### L 500.4050, L100.0100 #### [facility] [address] [place], [address] Sodium [Moles/Vol] 137 mmol/L Normal 133-145 [facility] Comment on above: Performed By: #### L 500.4050, L100.0100 #### [facility] [address] [place], [address] T PROT 7.1 g/dL Normal 5.9-8.4 [facility] Comment on above: Performed By: #### L 500.4050, L100.0100 #### [facility] [address] [place], [address] Urea nitrogen [Mass/Vol] 17 mg/dL Normal 4-19 [facility] Comment on above: Performed By: #### L 500.4050, L100.0100 #### [facility] [address] [place], [address] Glomerular filtration rate ( GFR) estimation/1.73 sq m using serum, plasma, or whole bOrdered By: Guicho Quezada on 10-11-2024 GFR/1.73 sq M.predicted among non-blacks MDRD (S/P/Bld) [Vol rate/Area] 53 mL/min/{1.73_m2} Low >60 [facility] Comment on above: mL/min/1.73m2 CKD-EP I Creatinine Equation (2020) Laboratory - Chemistry and C hemistry - challengeOrdered By: Guicho Quezada on 10-11-2024 AST [Catalytic activity/Vol] 21 U/L <32 [facility] Potassium measurement (mass/ volume)Ordered By: Guicho Quezada on 10-11-2024 Potassium (Unsp spec) [Mass/Vol] 4.3 mmol/L 3.3-5.1 [facility] Serum creatinine measurement (mass/volume)Ordered By: Guicho Quezada on 10-11-2024 Creatinine [Mass/Vol] 1.07 mg/dL 0.70-1.20 [facility] Serum globulin measurementOr dered By: Guicho Quezada on 10-11-2024 Globulin (S) [Mass/Vol] 2.6 g/dL 2.2-4.2 [facility] Serum glucose measurement (m ass/volume)Ordered By: Guicho Quezada on 10-11-2024 Glucose [Mass/Vol] 100 mg/dL High 70-99 [facility] Serum or plasma alanine maciel otransferase (ALT) measurementOrdered By: Guicho Quezada on 10-11-2024 ALT [Catalytic activity/Vol] 18 U/L <35 [facility] Serum or plasma albumin rodriguez urement (mass/volume)Ordered By: Guicho Quezada on 10-11-2024 Albumin [Mass/Vol] 4.5 g/dL 3.4-4.8 [facility] Serum or plasma albumin/glob ulin mass ratioOrdered By: Guicho Quezada on 10-11-2024 Albumin/Globulin [Mass ratio] 1.7 {ratio} 0.9-2.4 [facility] Serum or plasma alkaline ana sphatase measurementOrdered By: Guicho Quezada on 10-11-2024 ALP [Catalytic activity/Vol] 71 U/L 35-104 [facility] Serum or plasma calcium rodriguez urement (mass/volume)Ordered By: Guicho Quezada on 10-11-2024 Calcium [Mass/Vol] 12.1 mg/dL High 7.6-11.0 [facility] Serum or plasma urea nitroge n measurement (mass/volume)Ordered By: Guicho Quezada on 10-11-2024 Urea nitrogen [Mass/Vol] 17 mg/dL 4-19 [facility] Sodium levelOrdered By: Guicho Quezada on 10-11-2024 Sodium [Moles/Vol] 137 mmol/L 133-145 [facility] Total proteinOrdered By: Levon Quezada on 10-11-2024 Protein [Mass/Vol] 7.1 g/dL 5.9-8.4 [facility] 12 Lead EKGon 08-28-2024 12 Lead EKG [facility] Cardiovascular Services [address] [place] [address] 12 Lead EKG 08/28/24 1933 MR#: [id number] Acct: [id number] Name: YAJAIRA BUNN Rep #: [id number] : 1945 78 From: Joe Velasco MD [...] rhythm Normal ECG Confirmed by BRIDGETTE VALLE, OJE ([id number]), city editor SAMIRA ERNST ([id number]) on 08/29/2024 10:07:31 AM Referred By: Confirmed By: JOE VELASCO MD 08/29/241006 Date Joe Velasco MD CC: Dr. Se Bryan MD; Dr. Lorne Cherry MD Signed Normal [facility] Absolute lymphocyte countOrd ered By: Lorne Cherry on 08-28-2024 Lymphocytes Auto (Unsp spec) [#/Vol] 1.62 10*3/uL 0.83-4.51 [facility] Absolute neutrophil countOrd ered By: Lornecade Cherry on 08-28-2024 Neutrophils (Bld) [#/Vol] 5.7 10*3/uL 2.0-7.7 [facility] Anion gap in Serum or Plasma Ordered By: Lorne Cherry on 08-28-2024 Anion gap [Moles/Vol] 14 mmol/L - [facility] Automated lymphocyte count a s percentage of total leukocytesOrdered By: Lorne Cherry on 08-28-2024 Lymphocytes/100 WBC Auto (Unsp spec) 19.2 % [facility] BUN/creatinine ratioOrdered By: Lornecade Cherry on 08-28-2024 Urea nitrogen/Creatinine [Mass ratio] 16.1 mg/mg - [facility] Basic Metabolic Profile (BMP )on 08-28-2024 BUN Normal 06-15 [facility] Comment on above: Result Comment: Canajit clark via AZALEA: Ordered Performed By: #### L 500.2500 #### [facility] [address] [place], [address] BUN/CRE Normal 10-20 [facility] Comment on above: Result Comment: Canc elled via OM: MD Ordered Performed By: #### L 500.2500 #### [facility] [address] [place], [address] Calcium Normal 7.6-11.0 [facility] Comment on above: Result Comment: Canc elled via OM: MD Ordered Performed By: #### L 500.2500 #### [facility] [address] [place], [address] CL Normal 98-108 [facility] Comment on above: Result Comment: Canc elled via OM: MD Ordered Performed By: #### L 500.2500 #### [facility] [address] [place], [address] CO2 Normal 21.0-32.0 [facility] Comment on above: Result Comment: Canc elled via OM: MD Ordered Performed By: #### L 500.2500 #### [facility] [address] [place], [address] CREAT,SERUM Normal 0.70-1.20 [facility] Comment on above: Result Comment: Canc elled via OM: MD Ordered Performed By: #### L 500.2500 #### [facility] [address] [place], [address] eGFR Normal >60 [facility] Comment on above: Result Comment: Canc elled via OM: MD Ordered Performed By: #### L 500.2500 #### [facility] [address] [place], [address] GAP Normal 5-15 [facility] Comment on above: Result Comment: Canc elled via OM: MD Ordered Performed By: #### L 500.2500 #### [facility] [address] [place], [address] GLU Normal 70-99 [facility] Comment on above: Result Comment: Canc elled via OM: MD Ordered Performed By: #### L 500.2500 #### [facility] [address] [place], [address] Potassium Normal 3.3-5.1 [facility] Comment on above: Result Comment: Canc elled via OM: MD Ordered Performed By: #### L 500.2500 #### [facility] [address] [place], [address] Basic Metabolic Profile (BMP) Normal 133-145 [facility] Comment on above: Result Comment: Canc elled via OM: MD Ordered Performed By: #### L 500.2500 #### [facility] [address] [place], [address] Basophil percentageOrdered B y: Lorne Cherry on 08-28-2024 Basophils/100 WBC (Bld) 0.6 % 0-1 [facility] Bilirubin Test strip Ql (U)O rdered By: Lorne Cherry on 08-28-2024 Bilirubin Ql (U) Negative Negative [facility] Bilirubin, totalOrdered By: Lorne Cherry on 08-28-2024 Bilirubin [Mass/Vol] 0.30 mg/dL 0.00-1.30 [facility] CBC W/Diff, Automatedon 07- Absolute Lymph 1.62 X10 3/uL Normal 0.83-4.51 [facility] Comment on above: Performed By: #### L 500.4050, L100.0100 #### [facility] [address] [place], [address] Absolute Neut 5.7 X10 3/uL Normal 2.0-7.7 [facility] Comment on above: Performed By: #### L 500.4050, L100.0100 #### [facility] [address] [place], [address] Basophils/100 WBC (Bld) 0.6 % Normal 0-1 [facility] Comment on above: Performed By: #### L 500.4050, L100.0100 #### [facility] [address] [place], [address] Eosinophils/100 WBC (Bld) 2.7 % Normal 0-5 [facility] Comment on above: Performed By: #### L 500.4050, L100.0100 #### [facility] [address] [place], [address] Erythrocyte distribution width (RBC) [Ratio] 11.9 % Normal 11.6-14.6 [facility] Comment on above: Performed By: #### L 500.4050, L100.0100 #### [facility] [address] [place], [address] Hematocrit (Bld) [Volume fraction] 35.6 % Low 37-47 [facility] Comment on above: Performed By: #### L 500.4050, L100.0100 #### [facility] [address] [place], [address] Hemoglobin (Bld) [Mass/Vol] 12.3 g/dL Normal 12.0-15.0 [facility] Comment on above: Performed By: #### L 500.4050, L100.0100 #### [facility] [address] [place], [address] IG% 0.500 Normal 0.0-0.9 [facility] Comment on above: Result Comment: IG% - Immature Granulocytes (promyelocytes, myelocytes and metamyelocytes) > 1% indicates that a LEFT SHIFT is Present. Performed By: #### L 500.4050, L100.0100 #### [facility] [address] [place], [address] Lymphocytes/100 WBC (Bld) 19.2 % Normal 19-41 [facility] Comment on above: Performed By: #### L 500.4050, L100.0100 #### [facility] [address] [place], [address] MCH (RBC) [Entitic mass] 32.5 pg High 27.0-32.0 [facility] Comment on above: Performed By: #### L 500.4050, L100.0100 #### [facility] [address] [place], [address] MCHC (RBC) [Mass/Vol] 34.6 g/dL Normal 32-36 [facility] Comment on above: Performed By: #### L 500.4050, L100.0100 #### [facility] [address] [place], [address] MCV (RBC) [Entitic vol] 93.9 fL Normal 81-99 [facility] Comment on above: Performed By: #### L 500.4050, L100.0100 #### [facility] [address] [place], [address] Monocytes/100 WBC (Bld) 9.6 % Normal 0-10 [facility] Comment on above: Performed By: #### L 500.4050, L100.0100 #### [facility] [address] [place], [address] Neutrophils/100 WBC (Bld) 67.4 % Normal 47-70 [facility] Comment on above: Performed By: #### L 500.4050, L100.0100 #### [facility] [address] [place], [address] Nucleated RBC (Bld) [#/Vol] 0 10*3/uL Normal 0-5 [facility] Comment on above: Performed By: #### L 500.4050, L100.0100 #### [facility] [address] [place], [address] Platelet mean volume (Bld) [Entitic vol] 10.3 fL Normal 6.2-12.0 [facility] Comment on above: Performed By: #### L 500.4050, L100.0100 #### [facility] [address] [place], [address] Platelets (Bld) [#/Vol] 262 10*3/uL Normal 150-450 [facility] Comment on above: Performed By: #### L 500.4050, L100.0100 #### [facility] [address] [place], [address] RBC (Bld) [#/Vol] 3.79 10*6/uL Low 4.2-5.4 [facility] Comment on above: Performed By: #### L 500.4050, L100.0100 #### [facility] [address] [place], [address] RDW SD 40.4 fl Normal 35.1-43.9 [facility] Comment on above: Performed By: #### L 500.4050, L100.0100 #### [facility] [address] [place], [address] WBC (Bld) [#/Vol] 8.4 10*3/uL Normal 4.4-11.0 [facility] Comment on above: Performed By: #### L 500.4050, L100.0100 #### [facility] [address] [place], [address] Carbon dioxide, total [Moles /volume] in Central venous bloodOrdered By: Lorne Cherry on 08-28-2024 CO2 [Moles/Vol] 19.3 mmol/L Low 21.0-32.0 [facility] Chloride assayOrdered By: Yair Cherry on 08-28-2024 Chloride [Moles/Vol] 104 mmol/L 98-108 [facility] Comprehensive Metabolic Prof ilon 08-28-2024 Albumin [Mass/Vol] 4.4 g/dL Normal 3.4-4.8 [facility] Comment on above: Performed By: #### L 500.4050, L100.0100 #### [facility] [address] [place], [address] Albumin/Globulin [Mass ratio] 1.7 {ratio} Normal 0.9-2.4 [facility] Comment on above: Performed By: #### L 500.4050, L100.0100 #### [facility] [address] [place], [address] ALK PHOS 80 U/L Normal 35-104 [facility] Comment on above: Performed By: #### L 500.4050, L100.0100 #### [facility] [address] [place], [address] ALT [Catalytic activity/Vol] 16 U/L Normal <=34 [facility] Comment on above: Performed By: #### L 500.4050, L100.0100 #### [facility] [address] [place], [address] AST [Catalytic activity/Vol] 29 U/L Normal <=31 [facility] Comment on above: Result Comment: Hemo lysis present, Results??could be affected. ?? Performed By: #### L 500.4050, L100.0100 #### [facility] [address] [place], [address] Bilirubin [Mass/Vol] 0.30 mg/dL Normal 0.00-1.30 [facility] Comment on above: Performed By: #### L 500.4050, L100.0100 #### [facility] [address] [place], [address] BUN/CRE 16.1 RATIO Normal 10-20 [facility] Comment on above: Performed By: #### L 500.4050, L100.0100 #### [facility] [address] [place], [address] Calcium [Mass/Vol] 11.4 mg/dL High 7.6-11.0 [facility] Comment on above: Performed By: #### L 500.4050, L100.0100 #### [facility] [address] [place], [address] Chloride [Moles/Vol] 104 mmol/L Normal 98-108 [facility] Comment on above: Performed By: #### L 500.4050, L100.0100 #### [facility] [address] [place], [address] CO2 [Moles/Vol] 19.3 mmol/L Low 21.0-32.0 [facility] Comment on above: Performed By: #### L 500.4050, L100.0100 #### [facility] [address] [place], [address] Creatinine [Mass/Vol] 1.08 mg/dL Normal 0.70-1.20 [facility] Comment on above: Performed By: #### L 500.4050, L100.0100 #### [facility] [address] [place], [address] ECRCL 40.44 ml/min Low 50-250 [facility] Comment on above: Performed By: #### L 500.4050, L100.0100 #### [facility] [address] [place], [address] GAP 14 Normal 5-15 [facility] Comment on above: Performed By: #### L 500.4050, L100.0100 #### [facility] [address] [place], [address] GFR/1.73 sq M.predicted among non-blacks MDRD (S/P/Bld) [Vol rate/Area] 53 mL/min/{1.73_m2} Low >60 [facility] Comment on above: Result Comment: mL/m in/1.73m2 CKD-EPI Creatinine Equation (2020) Performed By: #### L 500.4050, L100.0100 #### [facility] [address] [place], [address] Globulin (S) [Mass/Vol] 2.6 g/dL Normal 2.2-4.2 [facility] Comment on above: Performed By: #### L 500.4050, L100.0100 #### [facility] [address] [place], [address] Glucose [Mass/Vol] 89 mg/dL Normal 70-99 [facility] Comment on above: Performed By: #### L 500.4050, L100.0100 #### [facility] [address] [place], [address] Potassium [Moles/Vol] 4.3 mmol/L Normal 3.3-5.1 [facility] Comment on above: Result Comment: Hemo lysis present, Results??could be affected. ?? Performed By: #### L 500.4050, L100.0100 #### [facility] [address] [place], [address] Sodium [Moles/Vol] 138 mmol/L Normal 133-145 [facility] Comment on above: Performed By: #### L 500.4050, L100.0100 #### [facility] [address] [place], [address] T PROT 7.0 g/dL Normal 5.9-8.4 [facility] Comment on above: Performed By: #### L 500.4050, L100.0100 #### [facility] [address] [place], [address] Urea nitrogen [Mass/Vol] 17 mg/dL Normal 4-19 [facility] Comment on above: Performed By: #### L 500.4050, L100.0100 #### [facility] [address] [place], [address] Emergency Department Summary on 08-28-2024 Emergency Department Summary [facility] Medical Records Department [address] [place] [address] Emergency Department Summary 08/28/24 MR#: [id number] Acct: [id number] Name: YAJAIRA BUNN Rep #: [id number] : 1945 78 From: Lorne Cehrry MD PCP: Dr. Se Bryan MD Status:REG [...] symptoms: Yes Recent Illness/Hospitalizatio n: No PFSH [facility] Medical History Vitamin D deficiency Abnormal mammogram [...] BID 08/18/21 Unknown Hist ory mg-copper 1 [id number] capsule (PreserVision AREDS-2) denosumab 60 mg/mL subcutaneous 60 mg subcut [id number] #1 mL Unknown Rx syringe (Prolia) cholecalciferol [...] 160/71 H (more content not included)... Normal [facility] Eosinophil percentageOrdered By: Lorne Cherry on 08-28-2024 Eosinophils/100 WBC (Bld) 2.7 % 0-5 [facility] Erythrocyte distribution wid th ratioOrdered By: Lorne Cherry on 08-28-2024 Erythrocyte distribution width (RBC) [Ratio] 11.9 % 11.6-14.6 [facility] Erythrocyte distribution wid th standard deviationOrdered By: Lorne Cherry on 08-28-2024 Erythrocyte distribution width (RBC) [Ratio] 40.4 fl 35.1-43.9 [facility] Glomerular filtration rate ( GFR) estimation/1.73 sq m using serum, plasma, or whole bOrdered By: Lorne Cherry on 08-28-2024 GFR/1.73 sq M.predicted among non-blacks MDRD (S/P/Bld) [Vol rate/Area] 53 mL/min/{1.73_m2} Low >60 [facility] Comment on above: mL/min/1.73m2 CKD-EP I Creatinine Equation (2020) Hematocrit Auto (Bld) [Volum e fraction]Ordered By: Lorne Cherry on 08-28-2024 Hematocrit (Bld) [Volume fraction] 35.6 % Low 37-47 [facility] Hemoglobin measurementOrdere d By: Lorne Cherry on 08-28-2024 Hemoglobin (Bld) [Mass/Vol] 12.3 g/dL 12.0-15.0 [facility] Immature granulocytes/100 WB C Auto (Bld)Ordered By: Lorne Chrery on 08-28-2024 Immature granulocytes/100 WBC (Bld) 0.500 % 0.0-0.9 [facility] Comment on above: IG% - Immature Granu locytes (promyelocytes, myelocytes and metamyelocytes) > 1% indicates that a LEFT SHIFT is Present. Ketones Test strip Ql (U)Ord ered By: Lorne Cherry on 08-28-2024 Ketones Ql (U) 5 mg/dl High Negative [facility] Laboratory - Chemistry and C hemistry - challengeOrdered By: Lorne Cherry on 08-28-2024 AST [Catalytic activity/Vol] 29 U/L <32 [facility] Comment on above: Hemolysis present, R esults could be affected. MCV (mean corpuscular volume ) determinationOrdered By: Lorne Cherry on 08-28-2024 MCV (RBC) [Entitic vol] 93.9 fL 81-99 [facility] Mean corpuscular hemoglobin (MCH) determinationOrdered By: Lorne Cherry on 08-28-2024 MCH (RBC) [Entitic mass] 32.5 pg High 27.0-32.0 [facility] Mean corpuscular hemoglobin concentration (MCHC) determinationOrdered By: Lorne Cherry on 08-28-2024 MCHC (RBC) [Mass/Vol] 34.6 g/dL 32-36 [facility] Mean platelet volume determi nationOrdered By: Lorne Cherry on 08-28-2024 Platelet mean volume (Bld) [Entitic vol] 10.3 fL 6.2-12.0 [facility] Microscopic analysis of urin e for red blood cells (RBC)Ordered By: Lorne Cherry on 08-28-2024 Microscopic analysis of urine for red blood cells (RBC) 0-5 SEEN /hpf 0-5 [facility] Monocyte percentageOrdered B y: Lorne Cherry on 08-28-2024 Monocytes/100 WBC (Bld) 9.6 % 0-10 [facility] Mucus LM Ql (Urine sed)Order ed By: Lorne Cherry on 08-28-2024 Mucus Ql (Urine sed) 0 SEEN /hpf [facility] Neutrophil percentageOrdered By: Lorne Cherry on 08-28-2024 Neutrophils/100 WBC (Bld) 67.4 % 47-70 [facility] Nitrite Test strip Ql (U)Ord ered By: Lorne Cherry on 08-28-2024 Nitrite Ql (U) Negative Negative [facility] Nucleated red blood cell per centageOrdered By: Lorne Cherry on 08-28-2024 Nucleated RBC/100 WBC (Bld) [Ratio] 0 % 0-5 [facility] Platelet countOrdered By: Yair Cherry on 08-28-2024 Platelets (Bld) [#/Vol] 262 10*3/uL 150-450 [facility] Potassium measurement (mass/ volume)Ordered By: Lorne Cherry on 08-28-2024 Potassium (Unsp spec) [Mass/Vol] 4.3 mmol/L 3.3-5.1 [facility] Comment on above: Hemolysis present, R esults could be affected. Protein Test strip Ql (U)Ord ered By: Lorne Cherry on 08-28-2024 Protein Ql (U) Negative Negative [facility] RBC Auto (Bld) [#/Vol]Ordere d By: Lorne Cherry on 08-28-2024 RBC (Bld) [#/Vol] 3.79 10*6/uL Low 4.2-5.4 [facility] Serum creatinine measurement (mass/volume)Ordered By: Lorne Cherry on 08-28-2024 Creatinine [Mass/Vol] 1.08 mg/dL 0.70-1.20 [facility] Serum globulin measurementOr dered By: Lorne Cherry on 08-28-2024 Globulin (S) [Mass/Vol] 2.6 g/dL 2.2-4.2 [facility] Serum glucose measurement (m ass/volume)Ordered By: Lorne Cherry on 08-28-2024 Glucose [Mass/Vol] 89 mg/dL 70-99 [facility] Serum or plasma alanine maciel otransferase (ALT) measurementOrdered By: Lorne Cherry on 08-28-2024 ALT [Catalytic activity/Vol] 16 U/L <35 [facility] Serum or plasma albumin rodriguez urement (mass/volume)Ordered By: Lorne Cherry on 08-28-2024 Albumin [Mass/Vol] 4.4 g/dL 3.4-4.8 [facility] Serum or plasma albumin/glob ulin mass ratioOrdered By: Lorne Cherry on 08-28-2024 Albumin/Globulin [Mass ratio] 1.7 {ratio} 0.9-2.4 [facility] Serum or plasma alkaline ana sphatase measurementOrdered By: Lornecade Cherry on 08-28-2024 ALP [Catalytic activity/Vol] 80 U/L 35-104 [facility] Serum or plasma calcium rodriguez urement (mass/volume)Ordered By: Lornecdae Cherry on 08-28-2024 Calcium [Mass/Vol] 11.4 mg/dL High 7.6-11.0 [facility] Serum or plasma urea nitroge n measurement (mass/volume)Ordered By: Lorne Cherry on 08-28-2024 Urea nitrogen [Mass/Vol] 17 mg/dL 4-19 [facility] Sodium levelOrdered By: Lorne Cherry on 08-28-2024 Sodium [Moles/Vol] 138 mmol/L 133-145 [facility] Squamous epithelial cells de tection in urine sediment by light microscopyOrdered By: Lorne Cherry on 08-28-2024 Epithelial cells.squamous LM Ql (Urine sed) 0-5 SEEN /hpf - [facility] Total proteinOrdered By: Lorne Cherry on 08-28-2024 Protein [Mass/Vol] 7.0 g/dL 5.9-8.4 [facility] Urinalysis, Completeon 08-28 EPI,SQUAMOUS 0-5 SEEN Normal 5-10 [facility] Comment on above: Order Comment: CLEAN CATCH Performed By: #### L 400.0001 #### [facility] [address] [place], [place], [id number] RBC 0-5 SEEN Normal 0-5 [facility] Comment on above: Order Comment: CLEAN CATCH Performed By: #### L 400.0001 #### [facility] [address] [place], [place], [id number] (729) WBC 0-5 SEEN Normal 0-5 [facility] Comment on above: Order Comment: CLEAN CATCH Performed By: #### L 400.0001 #### [facility] [address] [place], [address] BACTERIA 0 SEEN Normal None Seen [facility] Comment on above: Order Comment: CLEAN CATCH Performed By: #### L 400.0001 #### [facility] [address] [place], [place], [id number] Mucus Ql (Urine sed) 0 SEEN Normal [facility] Comment on above: Order Comment: CLEAN CATCH Performed By: #### L 400.0001 #### [facility] [address] [place], [place], [id number] Urine clarityOrdered By: Lorne Cherry on 08-28-2024 Clarity (U) Clear Clear [facility] Urine color determinationOrd ered By: Lorne Cherry on 08-28-2024 Color (U) Yellow Yellow [facility] Urine glucose detectionOrder ed By: Lorne Cherry on 08-28-2024 Glucose Ql (U) Normal mg/dl Normal [facility] Urine leukocyte esterase det ection by dipstickOrdered By: Lorne Cherry on 08-28-2024 Leukocyte esterase Test strip Ql (U) 25 /ul High Negative [facility] Urine pHOrdered By: Lorne mohamud on 08-28-2024 pH (U) 7.0 [pH] 5.0 - 8.0 [facility] Urine sediment bacteria coun t by microscopy (number/high power field)Ordered By: Lorne Cherry on 08-28-2024 Bacteria LM.HPF (Urine sed) [#/Area] 0 /[HPF] None Seen [facility] Urine specific gravity measu rementOrdered By: Lorne Cherry on 08-28-2024 Specific gravity (U) [Rel density] 1.010 1.002-1.030 [facility] Urine urobilinogen measureme ntOrdered By: Lorne Cherry on 08-28-2024 Urobilinogen Ql (U) Normal mg/dl Normal [facility] White blood cell (WBC) count Ordered By: Lorne Cherry on 08-28-2024 WBC (Bld) [#/Vol] 8.4 10*3/uL 4.4-11.0 [facility] White blood cell countOrdere d By: Lorne Cherry on 08-28-2024 White blood cell count 0-5 SEEN /hpf 0-5 [facility] Anion gap in Serum or Plasma Ordered By: Guicho Quezada on 08-27-2024 Anion gap [Moles/Vol] 13 mmol/L 5-15 [facility] BUN/creatinine ratioOrdered By: Guicho Quezada on 08-27-2024 Urea nitrogen/Creatinine [Mass ratio] 15.1 mg/mg 10-20 [facility] Bilirubin, totalOrdered By: Guicho Quezada on 08-27-2024 Bilirubin [Mass/Vol] 0.23 mg/dL 0.00-1.30 [facility] Carbon dioxide, total [Moles /volume] in Central venous bloodOrdered By: Guicho Quezada on 08-27-2024 CO2 [Moles/Vol] 23.3 mmol/L 21.0-32.0 [facility] Chloride assayOrdered By: Demar Quezada on 08-27-2024 Chloride [Moles/Vol] 102 mmol/L 98-108 [facility] Comprehensive Metabolic Prof ilon 08-27-2024 Albumin [Mass/Vol] 4.3 g/dL Normal 3.4-4.8 [facility] Comment on above: Order Comment: KISHOR Mckeon ADD TO LABS DONE ON 68-52-82XLOUWX: MG5 5 F Performed By: #### L 500.4050, L100.0100 #### [facility] [address] [place], [address] Albumin/Globulin [Mass ratio] 1.7 {ratio} Normal 0.9-2.4 [facility] Comment on above: Order Comment: KISHOR Mckeon ADD TO LABS DONE ON 52-40-98VXSHOZ: MG5 5 F Performed By: #### L 500.4050, L100.0100 #### [facility] [address] [place], [address] ALK PHOS 76 U/L Normal 35-104 [facility] Comment on above: Order Comment: PLEAS E ADD TO LABS DONE ON 19-89-50HIUMQR: MG5 5 F Performed By: #### L 500.4050, L100.0100 #### [facility] [address] [place], [address] ALT [Catalytic activity/Vol] 15 U/L Normal <=34 [facility] Comment on above: Order Comment: PLEAS E ADD TO LABS DONE ON 98-85-41UPIAFE: MG5 5 F Performed By: #### L 500.4050, L100.0100 #### [facility] [address] [place], [address] AST [Catalytic activity/Vol] 24 U/L Normal <=31 [facility] Comment on above: Order Comment: PLEAS E ADD TO LABS DONE ON 66-28-68QNXFVI: MG5 5 F Performed By: #### L 500.4050, L100.0100 #### [facility] [address] [place], [address] Bilirubin [Mass/Vol] 0.23 mg/dL Normal 0.00-1.30 [facility] Comment on above: Order Comment: PLEAS E ADD TO LABS DONE ON 85-82-47IUDMIA: MG5 5 F Performed By: #### L 500.4050, L100.0100 #### [facility] [address] [place], [address] BUN/CRE 15.1 RATIO Normal 10-20 [facility] Comment on above: Order Comment: PLEAS E ADD TO LABS DONE ON 63-04-83CSJDWS: MG5 5 F Performed By: #### L 500.4050, L100.0100 #### [facility] [address] [place], [address] Calcium [Mass/Vol] 13.7 mg/dL Invalid Interpretation Code 7.6-11.0 [facility] Comment on above: Order Comment: PLEAS E ADD TO LABS DONE ON 12-15-70NPMQMY: MG5 5 F Result Comment: Crit ical Result(s) Called SUNNY WELLS at: 1643 by: AMBERLY??Results read back by same. Performed By: #### L 500.4050, L100.0100 #### [facility] [address] [place], [address] Chloride [Moles/Vol] 102 mmol/L Normal 98-108 [facility] Comment on above: Order Comment: PLEAS E ADD TO LABS DONE ON 38-45-52RXBKVD: MG5 5 F Performed By: #### L 500.4050, L100.0100 #### [facility] [address] [place], [address] CO2 [Moles/Vol] 23.3 mmol/L Normal 21.0-32.0 [facility] Comment on above: Order Comment: PLEAS E ADD TO LABS DONE ON 86-42-57EZXWUE: MG5 5 F Performed By: #### L 500.4050, L100.0100 #### [facility] [address] [place], [address] Creatinine [Mass/Vol] 1.19 mg/dL Normal 0.70-1.20 [facility] Comment on above: Order Comment: PLEAS E ADD TO LABS DONE ON 08-70-90HKPXJC: MG5 5 F Performed By: #### L 500.4050, L100.0100 #### [facility] [address] [place], [address] GAP 13 Normal 5-15 [facility] Comment on above: Order Comment: PLEAS E ADD TO LABS DONE ON 74-53-16LNQMJH: MG5 5 F Performed By: #### L 500.4050, L100.0100 #### [facility] [address] [place], [address] GFR/1.73 sq M.predicted among non-blacks MDRD (S/P/Bld) [Vol rate/Area] 47 mL/min/{1.73_m2} Low >60 [facility] Comment on above: Order Comment: PLEAS E ADD TO LABS DONE ON 60-66-22TMYNAJ: MG5 5 F Result Comment: mL/m in/1.73m2 CKD-EPI Creatinine Equation (2020) Performed By: #### L 500.4050, L100.0100 #### [facility] [address] [place], [address] Globulin (S) [Mass/Vol] 2.5 g/dL Normal 2.2-4.2 [facility] Comment on above: Order Comment: PLEAS E ADD TO LABS DONE ON 21-74-52EPQCGE: MG5 5 F Performed By: #### L 500.4050, L100.0100 #### [facility] [address] [place], [address] Glucose [Mass/Vol] 107 mg/dL High 70-99 [facility] Comment on above: Order Comment: PLEAS E ADD TO LABS DONE ON 61-27-77QCBWSQ: MG5 5 F Performed By: #### L 500.4050, L100.0100 #### [facility] [address] [place], [address] Potassium [Moles/Vol] 4.5 mmol/L Normal 3.3-5.1 [facility] Comment on above: Order Comment: PLEAS E ADD TO LABS DONE ON 13-54-53IBGNKH: MG5 5 F Performed By: #### L 500.4050, L100.0100 #### [facility] [address] [place], [address] Sodium [Moles/Vol] 138 mmol/L Normal 133-145 [facility] Comment on above: Order Comment: PLEAS E ADD TO LABS DONE ON 59-46-58WEKOPB: MG5 5 F Performed By: #### L 500.4050, L100.0100 #### [facility] [address] [place], [address] T PROT 6.8 g/dL Normal 5.9-8.4 [facility] Comment on above: Order Comment: KISHOR Mckeon ADD TO LABS DONE ON 34-68-51OLTTBA: MG5 5 F Performed By: #### L 500.4050, L100.0100 #### [facility] [address] [place], [address] Urea nitrogen [Mass/Vol] 18 mg/dL Normal 4-19 [facility] Comment on above: Order Comment: KISHOR Mckeon ADD TO LABS DONE ON 96-57-75QKBDMX: MG5 5 F Performed By: #### L 500.4050, L100.0100 #### [facility] [address] [place], [address] Glomerular filtration rate ( GFR) estimation/1.73 sq m using serum, plasma, or whole bOrdered By: Guicho Quezada on 08-27-2024 GFR/1.73 sq M.predicted among non-blacks MDRD (S/P/Bld) [Vol rate/Area] 47 mL/min/{1.73_m2} Low >60 [facility] Comment on above: mL/min/1.73m2 CKD-EP I Creatinine Equation (2020) Laboratory - Chemistry and C hemistry - challengeOrdered By: Guicho Quezada on 08-27-2024 AST [Catalytic activity/Vol] 24 U/L <32 [facility] Potassium measurement (mass/ volume)Ordered By: Guicho Quezada on 08-27-2024 Potassium (Unsp spec) [Mass/Vol] 4.5 mmol/L 3.3-5.1 [facility] Serum creatinine measurement (mass/volume)Ordered By: Guicho Quezada on 08-27-2024 Creatinine [Mass/Vol] 1.19 mg/dL 0.70-1.20 [facility] Serum globulin measurementOr dered By: Guicho Quezada on 08-27-2024 Globulin (S) [Mass/Vol] 2.5 g/dL 2.2-4.2 [facility] Serum glucose measurement (m ass/volume)Ordered By: Guicho Quezada on 08-27-2024 Glucose [Mass/Vol] 107 mg/dL High 70-99 [facility] Serum or plasma alanine maciel otransferase (ALT) measurementOrdered By: Guicho Quezada on 08-27-2024 ALT [Catalytic activity/Vol] 15 U/L <35 [facility] Serum or plasma albumin rodriguez urement (mass/volume)Ordered By: Guicho Quezada on 08-27-2024 Albumin [Mass/Vol] 4.3 g/dL 3.4-4.8 [facility] Serum or plasma albumin/glob ulin mass ratioOrdered By: Guicho Quezada on 08-27-2024 Albumin/Globulin [Mass ratio] 1.7 {ratio} 0.9-2.4 [facility] Serum or plasma alkaline ana sphatase measurementOrdered By: Guicho Quezada on 08-27-2024 ALP [Catalytic activity/Vol] 76 U/L 35-104 [facility] Serum or plasma calcium rodriguez urement (mass/volume)Ordered By: Guicho Quezada on 08-27-2024 Calcium [Mass/Vol] 13.7 mg/dL Critically high 7.6-11.0 [facility] Comment on above: Critical Result(s) C nathen CORREA RN at: 1643 by: AMBERLY Results read back by same. Serum or plasma urea nitroge n measurement (mass/volume)Ordered By: Guicho Quezada on 08-27-2024 Urea nitrogen [Mass/Vol] 18 mg/dL 4-19 [facility] Sodium levelOrdered By: Guicho Quezada on 08-27-2024 Sodium [Moles/Vol] 138 mmol/L 133-145 [facility] Total proteinOrdered By: Levon Quezada on 08-27-2024 Protein [Mass/Vol] 6.8 g/dL 5.9-8.4 [facility] Vitamin D,25 Hydroxyon 08-27 Vitamin D 25-OH 64.0 ng/mL Normal 30-100 [facility] Comment on above: Order Comment: KISHOR Mckeon ADD TO LABS DONE ON [id number]: MG5 5 F Result Comment: Heidi min D Status Deficiency: <20 ng/mL (50nmol/L) Insufficiency: 20-30 ng/mL (50-75 nmol/L) Sufficiency: 30-100 ng/mL (75-250 nmol/L) Toxicity: >100 ng/mL (>250 nmol/L) Performed By: #### L 500.4050, L100.0100 #### [facility] [address] [place], [address] Endocrinology Visit Reporton 08-26-2024 Endocrinology Visit Report [facility] 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 Normal [facility] Ferritinon 08-26-2024 Ferritin [Mass/Vol] 208 ng/mL Normal -378 [facility] Comment on above: Performed By: #### L 503.6550, L503.0106 #### [facility] [address] [place], [place], [id number] Serum or plasma ferritin ezra surement (mass/volume)Ordered By: Guicho Quezada on 08-26-2024 Ferritin [Mass/Vol] 208 ng/mL 22-378 [facility] Vitamin B12on 08-26-2024 Cobalamin (Vitamin B12) [Mass/Vol] 1101 pg/mL High 180-914 [facility] Comment on above: Performed By: #### L 503.6550, L503.0106 #### [facility] [address] [place], [place], [id number] Vitamin B12 ser/plasOrdered By: Guicho Quezada on 08-26-2024 Cobalamin (Vitamin B12) [Mass/Vol] 1101 pg/mL High 180-914 [facility] Office Visit Reporton 2023 Office Visit Report [facility] [address] [place] [address] OFFICE VISIT Date of Service: 02/23/24 MR#: [id number] Acct: [id number] Patient: YAJAIRA BUNN Rep #: [id number] : 1945 Provider: Fidel Frias Age/Sex: 78/F [place] [facility] [place] Status: Signed Intake Vital Signs 10/20/23 13:02 [...] Procedure performed by: Sunny Yeung Lot number: [id number] [employer] Hand: [employer] date: 06/26/26 Dose of injection: 1 mL Site of injection: Sub-Q Medication Given: Yes Is this a patient provided medication?: No Office Meds Prolia 60 mg/mL subcutaneous syringe Performing Provider: Guicho Quezada MD Performing Location: [facility] Administered by: Sunny Yeung RN on 02/23/24 11:33 Dose Route Admin Location Dispensed Lot Number Expiration Date [facility] Man ufacturer 60 mg subcut Left Arm 1 mL [id number] 06/26/26 27224-751-00 [employer] Assessment and Plan Assessment and Plan [...] Cosigner Signature: Date (if applicable) CC: Normal [facility] Comprehensive Metabolic Prof ilon 12-26-2023 Albumin [Mass/Vol] 3.8 g/dL Normal 3.2-5.0 [facility] Comment on above: Performed By: #### L 500.4050, L509.1000, L506.1000 #### [facility] [address] [place], [address] Albumin/Globulin [Mass ratio] 1.1 {ratio} Normal 0.9-2.4 [facility] Comment on above: Performed By: #### L 500.4050, L509.1000, L506.1000 #### [facility] [address] [place], [address] ALK P 63 U/L Normal 45-117 [facility] Comment on above: Performed By: #### L 500.4050, L509.1000, L506.1000 #### [facility] [address] [place], [address] ALT [Catalytic activity/Vol] 24 U/L Normal 13-56 [facility] Comment on above: Performed By: #### L 500.4050, L509.1000, L506.1000 #### [facility] [address] [place], [address] AST [Catalytic activity/Vol] 23 U/L Normal 15-37 [facility] Comment on above: Performed By: #### L 500.4050, L509.1000, L506.1000 #### [facility] [address] [place], [address] Bilirubin [Mass/Vol] 0.40 mg/dL Normal 0.20-1.00 [facility] Comment on above: Result Comment: For patients on eltrombopag therapy, use of Dimension [place] TBIL is not recommended. Performed By: #### L 500.4050, L509.1000, L506.1000 #### [facility] [address] [place], [address] BUN/CRE 15.3 RATIO Normal 10-20 [facility] Comment on above: Performed By: #### L 500.4050, L509.1000, L506.1000 #### [facility] [address] [place], [address] CA,Total 11.4 mg/dL High 8.5-10.1 [facility] Comment on above: Performed By: #### L 500.4050, L509.1000, L506.1000 #### [facility] [address] [place], [address] Chloride [Moles/Vol] 105 mmol/L Normal 98-107 [facility] Comment on above: Performed By: #### L 500.4050, L509.1000, L506.1000 #### [facility] [address] [place], [address] CO2 [Moles/Vol] 26.0 mmol/L Normal 21.0-32.0 [facility] Comment on above: Performed By: #### L 500.4050, L509.1000, L506.1000 #### [facility] [address] [place], [address] Creatinine [Mass/Vol] 1.11 mg/dL High 0.55-1.02 [facility] Comment on above: Result Comment: The validity of the calculated GFR GFRAA in patients over 70 years has not been determined. Clinical correlation is essential. Performed By: #### L 500.4050, L509.1000, L506.1000 #### [facility] [address] [place], [address] EST GFR - AA 61 mL/min Normal >60 [facility] Comment on above: Result Comment: Afri can Iraqi GFR Calc Performed By: #### L 500.4050, L509.1000, L506.1000 #### [facility] [address] [place], [address] GAP 5 Normal 5-15 [facility] Comment on above: Performed By: #### L 500.4050, L509.1000, L506.1000 #### [facility] [address] [place], [address] GFR/1.73 sq M.predicted among non-blacks MDRD (S/P/Bld) [Vol rate/Area] 51 mL/min/{1.73_m2} Low >60 [facility] Comment on above: Result Comment: Non- GFR Calc Performed By: #### L 500.4050, L509.1000, L506.1000 #### [facility] [address] [place], [address] Globulin (S) [Mass/Vol] 3.6 g/dL Normal 2.2-4.2 [facility] Comment on above: Performed By: #### L 500.4050, L509.1000, L506.1000 #### [facility] [address] [place], [address] Glucose [Mass/Vol] 97 mg/dL Normal 74-106 [facility] Comment on above: Performed By: #### L 500.4050, L509.1000, L506.1000 #### [facility] [address] [place], [address] Potassium [Moles/Vol] 4.6 mmol/L Normal 3.5-5.1 [facility] Comment on above: Performed By: #### L 500.4050, L509.1000, L506.1000 #### [facility] [address] [place], [address] Sodium [Moles/Vol] 136 mmol/L Normal 136-145 [facility] Comment on above: Performed By: #### L 500.4050, L509.1000, L506.1000 #### [facility] [address] [place], [address] T PROT 7.4 g/dL Normal 6.4-8.2 [facility] Comment on above: Performed By: #### L 500.4050, L509.1000, L506.1000 #### [facility] [address] [place], [address] Urea nitrogen [Mass/Vol] 17 mg/dL Normal 7-18 [facility] Comment on above: Performed By: #### L 500.4050, L509.1000, L506.1000 #### [facility] [address] [place], [address] PTHINon 12-26-2023 PTH 303.3 pg/mL High 18.4-80.1 [facility] Comment on above: Performed By: #### L 500.4050, L509.1000, L506.1000 #### [facility] [address] [place], [address] Vitamin D,25 Hydroxyon 12-25 Vitamin D 25-OH 30.7 ng/mL Normal [facility] Comment on above: Result Comment: Heidi min D 25(OH) Status Range Deficiency <20 ng/mL (50nmol/L) Insufficiency 20 - 30 ng/mL (50 - 75 nmol/L) Sufficiency 30 - 100 ng/mL (75 - 250 nmol/L) Toxicity >100 ng/mL (>250 nmol/L) Performed By: #### L 500.4050, L509.1000, L506.1000 #### [facility] [address] [place], [address] Absolute lymphocyte countOrd ered By: Juaquin Kay on 10-11-2022 Lymphocytes Auto (Unsp spec) [#/Vol] 1.28 10*3/uL 0.83-4.51 [facility] Basophil percentageOrdered B y: Juaquin Kay on 10-11-2022 Basophils/100 WBC (Bld) 0.3 % 0-1 [facility] Chloride [Moles/Vol] 108 mmol/L 98-107 [facility] Eosinophils/100 WBC (Bld) 0.0 % 0-5 [facility] Glucose [Mass/Vol] 104 mg/dL 74-106 [facility] Comment on above: Fasting Glucose resu lt from 100 to 125 mg/dL suggests IMPAIRED HOMEOSTASIS per A.D.A. criteria. Neutrophils (Bld) [#/Vol] 7.5 10*3/uL 2.0-7.7 [facility] Neutrophils/100 WBC (Bld) 76.4 % 47-70 [facility] Potassium [Moles/Vol] 4.5 mmol/L 3.5-5.1 [facility] Sodium [Moles/Vol] 135 mmol/L 136-145 [facility] WBC (Bld) [#/Vol] 9.9 10*3/uL 4.4-11.0 [facility] Blood erythrocytes count (nu mber/volume)Ordered By: Juaquin Kay on 10-11-2022 RBC (Bld) [#/Vol] 3.88 10*6/uL 4.2-5.4 [facility] Blood hemoglobin measurement (mass/volume)Ordered By: Juaquin Kay on 10-11-2022 Hemoglobin (Bld) [Mass/Vol] 12.2 g/dL 12.0-15.0 [facility] Blood lymphocytes/100 leukoc ytesOrdered By: Juaquin Kay on 10-11-2022 Lymphocytes/100 WBC (Bld) 13.0 % 19-41 [facility] Blood monocytes/100 leukocyt esOrdered By: Juaquin Kay on 10-11-2022 Monocytes/100 WBC (Bld) 9.4 % 0-10 [facility] Blood platelet mean volumeOr dered By: Juaquin Kay on 10-11-2022 Platelet mean volume (Bld) [Entitic vol] 9.9 fL 6.2-12.0 [facility] Determination of erythrocyte mean corpuscular volume (MCV)Ordered By: Juaquin Kay on 10-11-2022 MCV (RBC) [Entitic vol] 94.8 fL 81-99 [facility] Hematocrit Auto (Bld) [Volum e fraction]Ordered By: uJaquin Kay on 10-11-2022 Hematocrit (Bld) [Volume fraction] 36.8 % 37-47 [facility] Laboratory - Chemistry and C hemistry - challengeOrdered By: Juaquin Kay on 10-11-2022 CO2 [Moles/Vol] 22.0 mmol/L 21.0-32.0 [facility] Urea nitrogen/Creatinine [Mass ratio] 17.9 mg/mg 10-20 [facility] - Hematology and Cell countsOrdered By: Juaquin Kay on 10-11-2022 Erythrocyte distribution width (RBC) [Entitic vol] 42.8 fL 35.1-43.9 [facility] Erythrocyte distribution width (RBC) [Ratio] 12.3 % 11.6-14.6 [facility] Immature granulocytes/100 WBC (Bld) 0.900 % 0.0-0.9 [facility] Comment on above: IG% - Immature Granu locytes (promyelocytes, myelocytes and metamyelocytes) > 1% indicates that a LEFT SHIFT is Present. MCH (RBC) [Entitic mass] 31.4 pg 27.0-32.0 [facility] Nucleated RBC/100 WBC (Bld) [Ratio] 0 % 0-5 [facility] MCHC Auto (RBC) [Mass/Vol]Or dered By: Juaquin Kay on 10-11-2022 MCHC (RBC) [Mass/Vol] 33.2 g/dL 32-36 [facility] No Panel InformationOrdered By: Juaquin Kay on 10-11-2022 Estimated GFR (MDRD) Amer 58 mL/min >60 [facility] Comment on above: GFR Calc Estimated GFR (MDRD) Non-Af Amer 48 mL/min >60 [facility] Comment on above: Non- GFR Calc Platelets bldOrdered By: Rory Kay on 10-11-2022 Platelets (Bld) [#/Vol] 300 10*3/uL 150-450 [facility] Serum or plasma calcium rodriguez urement (mass/volume)Ordered By: Juaquin Kay on 10-11-2022 Calcium [Mass/Vol] 11.2 mg/dL 8.5-10.1 [facility] Serum or plasma creatinine m easurement (mass/volume)Ordered By: Juaquin Kay on 10-11-2022 Creatinine [Mass/Vol] 1.17 mg/dL 0.55-1.02 [facility] Comment on above: The validity of the calculated GFR & GFRAA in patients over 70 years has not been determined. Clinical correlation is essential. Serum or plasma urea nitroge n measurement (mass/volume)Ordered By: Juaquin Kay on 10-11-2022 Urea nitrogen [Mass/Vol] 21 mg/dL 7-18 [facility] Thin prep Papanicolaou smear with manual screeningOrdered By: Juaquin Kay on 10-11-2022 Thin prep Papanicolaou smear with manual screening 07 01- [facility] Absolute lymphocyte countOrd ered By: Dr. Quezada on 03-31-2022 Lymphocytes Auto (Unsp spec) [#/Vol] 1.10 10*3/uL 0.83-4.51 [facility] Basophil percentageOrdered B y: Dr. Quezada on 03-31-2022 Basophils/100 WBC (Bld) 1.1 % 0-1 [facility] Bilirubin [Mass/Vol] 0.40 mg/dL 0.20-1.00 [facility] Comment on above: For patients on eltr ombopag therapy, use of Dimension [place] TBIL is not recommended. Chloride [Moles/Vol] 107 mmol/L 98-107 [facility] Cholesterol [Mass/Vol] 205 mg/dL <200 [facility] Comment on above: <200 mg/dL Desirable 200-240 mg/dL Borderline >240 mg/dL High Risk Eosinophils/100 WBC (Bld) 2.1 % 0-5 [facility] Glucose [Mass/Vol] 99 mg/dL 74-106 [facility] Neutrophils (Bld) [#/Vol] 3.5 10*3/uL 2.0-7.7 [facility] Neutrophils/100 WBC (Bld) 66.5 % 47-70 [facility] Potassium [Moles/Vol] 4.6 mmol/L 3.5-5.1 [facility] Protein [Mass/Vol] 7.5 g/dL 6.4-8.2 [facility] Sodium [Moles/Vol] 138 mmol/L 136-145 [facility] Triglyceride [Mass/Vol] 90 mg/dL <199 [facility] Comment on above: The drugs N-Acetylcy steine and Metamizole may falsely depress this assay.Serum Triglycerides Reference Interval Normal <150 mg/dL Borderline high 150 - 199 mg/dL High 200 - 499 mg/dL Very High > or = 500 mg/dL WBC (Bld) [#/Vol] 5.3 10*3/uL 4.4-11.0 [facility] Blood erythrocytes count (nu mber/volume)Ordered By: Dr. Quezada on 03-31-2022 RBC (Bld) [#/Vol] 3.79 10*6/uL 4.2-5.4 [facility] Blood hemoglobin measurement (mass/volume)Ordered By: Dr. Quezada on 03-31-2022 Hemoglobin (Bld) [Mass/Vol] 11.9 g/dL 12.0-15.0 [facility] Blood lymphocytes/100 leukoc ytesOrdered By: Dr. Quezada on 03-31-2022 Lymphocytes/100 WBC (Bld) 20.7 % 19-41 [facility] Blood monocytes/100 leukocyt esOrdered By: Dr. Quezada on 03-31-2022 Monocytes/100 WBC (Bld) 9.4 % 0-10 [facility] Blood platelet mean volumeOr dered By: Dr. Quezada on 03-31-2022 Platelet mean volume (Bld) [Entitic vol] 9.6 fL 6.2-12.0 [facility] Determination of erythrocyte mean corpuscular volume (MCV)Ordered By: Dr. Quezada on 03-31-2022 MCV (RBC) [Entitic vol] 95.3 fL 81-99 [facility] Hematocrit Auto (Bld) [Volum e fraction]Ordered By: Dr. Quezada on 03-31-2022 Hematocrit (Bld) [Volume fraction] 36.1 % 37-47 [facility] Laboratory - Chemistry and C hemistry - challengeOrdered By: Dr. Quezada on 03-31-2022 ALP [Catalytic activity/Vol] 60 U/L 45-117 [facility] ALT [Catalytic activity/Vol] 27 U/L 13-56 [facility] CO2 [Moles/Vol] 27.0 mmol/L 21.0-32.0 [facility] Globulin (S) [Mass/Vol] 3.8 g/dL 2.2-4.2 [facility] Urea nitrogen/Creatinine [Mass ratio] 17.4 mg/mg 10-20 [facility] Laboratory - Hematology and Cell countsOrdered By: Dr. Quezada on 03-31-2022 Erythrocyte distribution width (RBC) [Entitic vol] 42.4 fL 35.1-43.9 [facility] Erythrocyte distribution width (RBC) [Ratio] 12.3 % 11.6-14.6 [facility] Immature granulocytes/100 WBC (Bld) 0.200 % 0.0-0.9 [facility] Comment on above: IG% - Immature Granu locytes (promyelocytes, myelocytes and metamyelocytes) > 1% indicates that a LEFT SHIFT is Present. MCH (RBC) [Entitic mass] 31.4 pg 27.0-32.0 [facility] Nucleated RBC/100 WBC (Bld) [Ratio] 0 % 0-5 [facility] MCHC Auto (RBC) [Mass/Vol]Or dered By: Dr. Quezada on 03-31-2022 MCHC (RBC) [Mass/Vol] 33.0 g/dL 32-36 [facility] No Panel InformationOrdered By: Dr. Quezada on 03-31-2022 Estimated GFR (MDRD) Amer 63 mL/min >60 [facility] Comment on above: GFR Calc Estimated GFR (MDRD) Non-Af Amer 52 mL/min >60 [facility] Comment on above: Non- GFR Calc Parathyroid Hormone (Intact) 202.2 pg/mL 18.4-80.1 [facility] Vitamin D 25-Hydroxy 45.6 ng/mL [facility] Comment on above: Vitamin D 25(OH) Sta tus Range Deficiency <20 ng/mL (50nmol/L) Insufficiency 20 - 30 ng/mL (50 - 75 nmol/L) Sufficiency 30 - 100 ng/mL (75 - 250 nmol/L) Toxicity >100 ng/mL (>250 nmol/L) Platelets bldOrdered By: Dr. Quezada on 03-31-2022 Platelets (Bld) [#/Vol] 259 10*3/uL 150-450 [facility] Serum or plasma albumin rodriguez urement (mass/volume)Ordered By: Dr. Quezada on 03-31-2022 Albumin [Mass/Vol] 3.7 g/dL 3.2-5.0 [facility] Serum or plasma albumin/glob ulin mass ratioOrdered By: Dr. Quezada on 03-31-2022 Albumin/Globulin [Mass ratio] 1.0 {ratio} 0.9-2.4 [facility] Serum or plasma calcium rodriguez urement (mass/volume)Ordered By: Dr. Quezada on 03-31-2022 Calcium [Mass/Vol] 11.1 mg/dL 8.5-10.1 [facility] Serum or plasma cholesterol in HDL measurement (mass/volume)Ordered By: Dr. Quezada on 03-31-2022 Cholesterol in HDL [Mass/Vol] 74 mg/dL >40 [facility] Comment on above: The drugs N-Acetylcy steine and Metamizole may falsely depress this assay. Reference Range HDL <40 mg/dL Low HDL Cholesterol HDL >or= 60 mg/dL High HDL Cholesterol Serum or plasma cholesterol in VLDL measurement (mass/volume)Ordered By: Dr. Quezada on 03-31-2022 Cholesterol in VLDL [Mass/Vol] 18 mg/dL 5-40 [facility] Serum or plasma creatinine m easurement (mass/volume)Ordered By: Dr. Quezada on 03-31-2022 Creatinine [Mass/Vol] 1.09 mg/dL 0.55-1.02 [facility] Comment on above: The validity of the calculated GFR & GFRAA in patients over 70 years has not been determined. Clinical correlation is essential. Serum or plasma low density lipoprotein (LDL) cholesterol measurement (mass/volume)Ordered By: Dr. Quezada on 03-31-2022 Cholesterol in LDL [Mass/Vol] 113 mg/dL 0-130 [facility] Serum or plasma urea nitroge n measurement (mass/volume)Ordered By: Dr. Quezada on 03-31-2022 Urea nitrogen [Mass/Vol] 19 mg/dL 7-18 [facility] Thin prep Papanicolaou smear with manual screeningOrdered By: Dr. Quezada on 03-31-2022 Thin prep Papanicolaou smear with manual screening 18 U/L 15-37 [facility] Thin prep Papanicolaou smear with manual screening 4 5-15 [facility] Absolute lymphocyte counton 09-24-2021 Lymphocytes Auto (Unsp spec) [#/Vol] 1.08 10*3/uL 0.83-4.51 [facility] Work Phone: Basophil percentageon 2021 Basophils/100 WBC (Bld) 0.9 % 0-1 [facility] Work Phone: [phone] Bilirubin [Mass/Vol] 0.30 mg/dL 0.20-1.00 [facility] Work Phone: Comment on above: For patients on eltr ombopag therapy, use of Dimension [place] TBIL is not recommended. Chloride [Moles/Vol] 108 mmol/L 98-107 [facility] Work Phone: Cholesterol [Mass/Vol] 175 mg/dL <200 [facility] Work Phone: Comment on above: <200 mg/dL Desirable 200-240 mg/dL Borderline >240 mg/dL High Risk Eosinophils/100 WBC (Bld) 2.9 % 0-5 [facility] Work Phone: Glucose [Mass/Vol] 99 mg/dL 74-106 [facility] Work Phone: Neutrophils (Bld) [#/Vol] 4.4 10*3/uL 2.0-7.7 [facility] Work Phone: Neutrophils/100 WBC (Bld) 67.7 % 47-70 [facility] Work Phone: Potassium [Moles/Vol] 4.5 mmol/L 3.5-5.1 [facility] Work Phone: Protein [Mass/Vol] 7.1 g/dL 6.4-8.2 [facility] Work Phone: [phone] Sodium [Moles/Vol] 138 mmol/L 136-145 [facility] Work Phone: [phone] Triglyceride [Mass/Vol] 145 mg/dL <199 [facility] Work Phone: [phone] Comment on above: The drugs N-Acetylcy steine and Metamizole may falsely depress this assay.Serum Triglycerides Reference Interval Normal <150 mg/dL Borderline high 150 - 199 mg/dL High 200 - 499 mg/dL Very High > or = 500 mg/dL WBC (Bld) [#/Vol] 6.5 10*3/uL 4.4-11.0 [facility] Work Phone: [phone] Blood erythrocytes count (nu mber/volume)on 09-24-2021 RBC (Bld) [#/Vol] 3.64 10*6/uL 4.2-5.4 [facility] Work Phone: [phone] Blood hemoglobin measurement (mass/volume)on 09-24-2021 Hemoglobin (Bld) [Mass/Vol] 11.3 g/dL 12.0-15.0 [facility] Work Phone: [phone] Blood lymphocytes/100 leukoc yteson 09-24-2021 Lymphocytes/100 WBC (Bld) 16.7 % 19-41 [facility] Work Phone: [phone] Blood monocytes/100 leukocyt eson 09-24-2021 Monocytes/100 WBC (Bld) 11.6 % 0-10 [facility] Work Phone: [phone] Blood platelet mean volumeon 09-24-2021 Platelet mean volume (Bld) [Entitic vol] 9.9 fL 6.2-12.0 [facility] Work Phone: [phone] Determination of erythrocyte mean corpuscular volume (MCV)on 09-24-2021 MCV (RBC) [Entitic vol] 94.2 fL 81-99 [facility] Work Phone: [phone] Hematocrit Auto (Bld) [Volum e fraction]on 09-24-2021 Hematocrit (Bld) [Volume fraction] 34.3 % 37-47 [facility] Work Phone: [phone] Laboratory - Chemistry and C hemistry - challengeon 09-24-2021 ALP [Catalytic activity/Vol] 72 U/L 45-117 [facility] Work Phone: [phone] ALT [Catalytic activity/Vol] 26 U/L 13-56 [facility] Work Phone: [phone] CO2 [Moles/Vol] 25.0 mmol/L 21.0-32.0 [facility] Work Phone: [phone] Globulin (S) [Mass/Vol] 3.6 g/dL 2.2-4.2 [facility] Work Phone: [phone] Urea nitrogen/Creatinine [Mass ratio] 17.1 mg/mg 10-20 [facility] Work Phone: [phone] Laboratory - Hematology and Cell countson 09-24-2021 Erythrocyte distribution width (RBC) [Entitic vol] 42.4 fL 35.1-43.9 [facility] Work Phone: [phone] Erythrocyte distribution width (RBC) [Ratio] 12.3 % 11.6-14.6 [facility] Work Phone: [phone] Immature granulocytes/100 WBC (Bld) 0.200 % 0.0-0.9 [facility] Work Phone: [phone] Comment on above: IG% - Immature Granu locytes (promyelocytes, myelocytes and metamyelocytes) > 1% indicates that a LEFT SHIFT is Present. MCH (RBC) [Entitic mass] 31.0 pg 27.0-32.0 [facility] Work Phone: [phone] Nucleated RBC/100 WBC (Bld) [Ratio] 0 % 0-5 [facility] Work Phone: [phone] MCHC Auto (RBC) [Mass/Vol]on 09-24-2021 MCHC (RBC) [Mass/Vol] 32.9 g/dL 32-36 [facility]: [phone] Panel Informationon 09-24 Estimated GFR (MDRD) Amer 58 mL/min >60 [facility] Work Phone: Comment on above: GFR Calc Estimated GFR (MDRD) Non-Af Amer 48 mL/min >60 [facility] Work Phone: Comment on above: Non- GFR Calc Platelets bldon 09-24-2021 Platelets (Bld) [#/Vol] 287 10*3/uL 150-450 [facility] Work Phone: [phone] Serum or plasma albumin rodriguez urement (mass/volume)on 09-24-2021 Albumin [Mass/Vol] 3.5 g/dL 3.2-5.0 [facility] Work Phone: [phone] Serum or plasma albumin/glob ulin mass ratioon 09-24-2021 Albumin/Globulin [Mass ratio] 1.0 {ratio} 0.9-2.4 [facility] Work Phone: [phone] Serum or plasma calcium rodriguez urement (mass/volume)on 09-24-2021 Calcium [Mass/Vol] 10.9 mg/dL 8.5-10.1 [facility] Work Phone: [phone] Serum or plasma cholesterol in HDL measurement (mass/volume)on 09-24-2021 Cholesterol in HDL [Mass/Vol] 57 mg/dL >40 [facility] Work Phone: Comment on above: The drugs N-Acetylcy steine and Metamizole may falsely depress this assay. Reference Range HDL <40 mg/dL Low HDL Cholesterol HDL >or= 60 mg/dL High HDL Cholesterol Serum or plasma cholesterol in VLDL measurement (mass/volume)on 09-24-2021 Cholesterol in VLDL [Mass/Vol] 29 mg/dL 5-40 [facility] Work Phone: [phone] Serum or plasma creatinine m easurement (mass/volume)on 09-24-2021 Creatinine [Mass/Vol] 1.17 mg/dL 0.55-1.02 [facility] Work Phone: [phone] Comment on above: The validity of the calculated GFR & GFRAA in patients over 70 years has not been determined. Clinical correlation is essential. Serum or plasma low density lipoprotein (LDL) cholesterol measurement (mass/volume)on 09-24-2021 Cholesterol in LDL [Mass/Vol] 89 mg/dL 0-130 [facility] Work Phone: Serum or plasma urea nitroge n measurement (mass/volume)on 09-24-2021 Urea nitrogen [Mass/Vol] 20 mg/dL 7-18 [facility] Work Phone: Thin prep Papanicolaou smear with manual screeningon 09-24-2021 Thin prep Papanicolaou smear with manual screening 19 U/L 15-37 [facility] Work Phone: Thin prep Papanicolaou smear with manual screening 5 5-15 [facility] Work Phone: .Auto Diffon 09-18-2018 Ammonia (P) [Mass/Vol] 1.20 10 3/mcL High 0.15-1.00 [facility] [place] Comment on above: Performed By: #### B MP, GFR #### [address] [address] Basophils (Bld) [#/Vol] 0.00 10 3/mcL Normal 0.00-0.19 [facility] [place] Comment on above: Performed By: #### B MP, GFR #### [address] [address] Basophils/100 WBC (Bld) 0.3 % Normal 0.0-2.5 [facility] ([place]) Comment on above: Performed By: #### B MP, GFR #### [address] [address] Eosinophils (Bld) [#/Vol] 0.00 10 3/mcL Normal 0.00-0.40 [facility] Comment on above: Performed By: #### B MP, GFR #### [address] [address] Eosinophils/100 WBC (Bld) 0.1 % Normal 0.0-7.0 [facility] [place] Comment on above: Performed By: #### B MP, GFR #### [address] [address] Lymphocytes (Bld) [#/Vol] 1.20 10 3/mcL Normal 0.77-3.85 [facility] Comment on above: Performed By: #### B MP, GFR #### [address] [address] Lymphocytes/100 WBC (Bld) 11.8 % Normal 10.0-50.0 [facility] [place] Comment on above: Performed By: #### B MP, GFR #### [address] [address] Monocytes/100 WBC (Bld) 11.7 % Normal 1.7-13.0 [facility] ([place] Comment on above: Performed By: #### B MP, GFR #### [address] [address] Neutrophils/100 WBC (Bld) 76.1 % Normal 37.0-80.0 [facility] [place] Comment on above: Performed By: #### B MP, GFR #### [address] [address] .GFRon 09-18-2018 GFR Non- 54 ml/min/1.73sqm Normal [facility] [place] Comment on above: Result Comment: GFR [...] Performed By: #### B MP, GFR #### [address] [address] GFR 65 ml/min/1.73sqm Normal [facility] [place] Comment on above: Result Comment: GFR Population [...] Performed By: #### B MP, GFR #### [address] [address] .NEUABSon 09-18-2018 Neutrophils (Bld) [#/Vol] 8.00 10 3/mcL High 2.85-6.16 [facility] [place] Comment on above: Performed By: #### B MP, GFR #### [address] [address] BMPon 09-18-2018 Calcium [Mass/Vol] 9.8 mg/dL Normal 8.4-10.2 [facility] Comment on above: Performed By: #### B MP, GFR #### [address] [address] Chloride [Moles/Vol] 97 mmol/L Low 98-107 Counts include 234 beds at the [facility] ([place] Comment on above: Performed By: #### B MP, GFR #### [address] [address] CO2 [Moles/Vol] 29 mmol/L Normal 23-31 [facility] [place] Comment on above: Performed By: #### B MP, GFR #### [address] [address] Creatinine [Mass/Vol] 1.02 mg/dL Normal 0.55-1.02 [facility] ([place]) Comment on above: Performed By: #### B MP, GFR #### [address] [address] Electrolyte Balance 5.0 mEq/L Normal [facility] [place] Comment on above: Performed By: #### B MP, GFR #### [address] [address] Glucose [Mass/Vol] 113 mg/dL High 83-110 [facility] [place] Comment on above: Performed By: #### B MP, GFR #### [address] [address] Potassium [Moles/Vol] 4.4 mmol/L Normal 3.5-5.1 [facility] ([place] Comment on above: Performed By: #### B MP, GFR #### [address] [address] Sodium [Moles/Vol] 131 mmol/L Low 136-145 [facility] [place] Comment on above: Performed By: #### B MP, GFR #### [address] [address] Urea nitrogen [Mass/Vol] 19 mg/dL High 7-18 [facility] [place] Comment on above: Performed By: #### B MP, GFR #### [address] [address] Urea nitrogen/Creatinine [Mass ratio] 19 ratio Normal 7-27 [facility] [place] Comment on above: Performed By: #### B MP, GFR #### [address] [address] CBCon 09-18-2018 Erythrocyte distribution width (RBC) [Ratio] 12.7 % Normal 11.5-14.5 [facility] [place] Comment on above: Performed By: #### C BC, ADIFF, ANEU #### [address] [address] #### BMP, GFR #### [address] [address] Hematocrit (Bld) [Volume fraction] 26.2 % Low 37.0-47.0 [facility] [place] Comment on above: Performed By: #### C BC, ADIFF, ANEU #### [address] [address] #### BMP, GFR #### [address] [address] Hemoglobin (Bld) [Mass/Vol] 9.4 G/dL Low 12.0-16.0 [facility] [place] Comment on above: Performed By: #### C BC, ADIFF, ANEU #### [place] [address] #### BMP, GFR #### [place] [phone] MCH (RBC) [Entitic mass] 32.7 pg High 27.0-31.2 [facility] [place] Comment on above: Performed By: #### C TERESO, ADIFF, ANEU #### [place] [address] #### BMP, GFR #### [place] [address] MCHC (RBC) [Mass/Vol] 35.7 G/dL Normal 33.0-37.0 [facility] ([place] Comment on above: Performed By: #### C EBENEZER RIDERIFF, ANEU #### [place] [address] #### BMP, GFR #### [place] [address] MCV (RBC) [Entitic vol] 91.5 fL Normal 80.0-94.0 [facility] ([place] Comment on above: Performed By: #### C BC, ADIFF, ANEU #### [place] [address] #### BMP, GFR #### [place] [id number] Platelet mean volume (Bld) [Entitic vol] 8.6 fL Normal 7.4-10.4 [facility] [place] Comment on above: Performed By: #### C BC, ADIFF, ANEU #### [address] [address] #### BMP, GFR #### [address] [address] Platelets (Bld) [#/Vol] 218 10 3/mcL Normal 130-400 [facility] [place] Comment on above: Performed By: #### C BC, ADIFF, ANEU #### [address] [address] #### BMP, GFR #### [place] [address] RBC (Bld) [#/Vol] 2.86 10 6/mcL Low 4.20-5.40 Counts include 234 beds at the [facility] ([place] Comment on above: Performed By: #### C BC, ADIFF, ANEU #### [address] [address] #### BMP, GFR #### [place] [address] WBC (Bld) [#/Vol] 10.50 10 3/mcL Normal 4.60-10.80 [facility] ([place] Comment on above: Performed By: #### C BC, EBENEZERIFF, ANEU #### [address] [address] #### BMP, GFR #### [address] [address] NAon 09-18-2018 Sodium [Moles/Vol] 130 mmol/L Low 136-145 [facility] [place] Comment on above: Performed By: #### B MP, GFR #### [address] [address] .GFRon 09-17-2018 GFR Non- 50 ml/min/1.73sqm Normal [facility] [place] Comment on above: Result Comment: GFR Population [...] Performed By: #### B MP, GFR #### [address] [address] GFR 60 ml/min/1.73sqm Normal [facility] [place] Comment on above: Result Comment: GFR Population [...] Performed By: #### B MP, GFR #### [address] [address] BMPon 09-17-2018 Calcium [Mass/Vol] 10.1 mg/dL Normal 8.4-10.2 [facility] [place] Comment on above: Performed By: #### B MP, GFR #### [address] [address] Chloride [Moles/Vol] 101 mmol/L Normal 98-107 Counts include 234 beds at the [facility] [place] Comment on above: Performed By: #### B MP, GFR #### [address] [address] CO2 [Moles/Vol] 25 mmol/L Normal 23-31 [facility] [place] Comment on above: Performed By: #### B MP, GFR #### [address] [address] Creatinine [Mass/Vol] 1.09 mg/dL High 0.55-1.02 [facility] ([place] Comment on above: Performed By: #### B MP, GFR #### [address] [address] Electrolyte Balance 10.0 mEq/L Normal [facility] [place] Comment on above: Performed By: #### B MP, GFR #### [address] [address] Glucose [Mass/Vol] 119 mg/dL High 83-110 [facility] [place] Comment on above: Performed By: #### B MP, GFR #### [address] [address] Potassium [Moles/Vol] 4.5 mmol/L Normal 3.5-5.1 [facility] ([place] Comment on above: Performed By: #### B MP, GFR #### [address] [address] Sodium [Moles/Vol] 136 mmol/L Normal 136-145 [facility] [place] Comment on above: Performed By: #### B MP, GFR #### [address] [address] Urea nitrogen [Mass/Vol] 21 mg/dL High 7-18 [facility] [place] Comment on above: Performed By: #### B MP, GFR #### [address] [address] Urea nitrogen/Creatinine [Mass ratio] 19 ratio Normal 7-27 [facility] [place] Comment on above: Performed By: #### B MP, GFR #### [address] [address] XR KNEE 1 OR 2 VIEWS RIGHTon [...] PM Sign Date: 09/17/2018 1:49:05 PM Normal [facility] [place] .Auto Diffon 08-27-2018 Ammonia (P) [Mass/Vol] 0.80 10 3/mcL Normal 0.15-1.00 [facility] [place] Comment on above: Performed By: #### C JR RIDER, ANEU #### [address] [address] Basophils (Bld) [#/Vol] 0.10 10 3/mcL Normal 0.00-0.19 [facility] [place] Comment on above: Performed By: #### C BCJR, ANEU #### [address] [address] Basophils/100 WBC (Bld) 0.9 % Normal 0.0-2.5 [facility] ([place] Comment on above: Performed By: #### C BC, JR, ANEU #### [address] [address] Eosinophils (Bld) [#/Vol] 0.10 10 3/mcL Normal 0.00-0.40 [facility] [place] Comment on above: Performed By: #### C BC, ADIFF, ANEU #### [address] [address] Eosinophils/100 WBC (Bld) 1.6 % Normal 0.0-7.0 [facility] [place] Comment on above: Performed By: #### C BC, ADIFF, ANEU #### [address] [address] Lymphocytes (Bld) [#/Vol] 2.10 10 3/mcL Normal 0.77-3.85 [facility] [place] Comment on above: Performed By: #### C BC, ADIFF, ANEU #### [address] [address] Lymphocytes/100 WBC (Bld) 24.4 % Normal 10.0-50.0 [facility] [place] Comment on above: Performed By: #### C JR RIDER, ANEU #### [place] [address] [address] Monocytes/100 WBC (Bld) 8.9 % Normal 1.7-13.0 [facility] ([place] Comment on above: Performed By: #### C JR RIDER, ANEU #### [place] [address] [address] Neutrophils/100 WBC (Bld) 64.2 % Normal 37.0-80.0 [facility] [place] Comment on above: Performed By: #### C JR RIDER, ANEU #### [place] [address] [address] .GFRon 08-27-2018 GFR 66 ml/min/1.73sqm Normal [facility] [place] Comment on above: Result Comment: GFR [...] Performed By: #### B MP, GFR #### [place] [address] GFR Non- 54 ml/min/1.73sqm Normal [facility] [place] Comment on above: Result Comment: GFR [...] Performed By: #### B MP, GFR #### [address] [address] .NEUABSon 08-27-2018 Neutrophils (Bld) [#/Vol] 5.50 10 3/mcL Normal 2.85-6.16 [facility] [place] Comment on above: Performed By: #### C TERESO, JR, ANEU #### [place] [address] [address] BMPon 08-27-2018 Calcium [Mass/Vol] 11.6 mg/dL High 8.4-10.2 [facility] Comment on above: Performed By: #### B MP, GFR #### [address] [address] Chloride [Moles/Vol] 100 mmol/L Normal 98-107 Counts include 234 beds at the [facility] ([place] Comment on above: Performed By: #### B MP, GFR #### [address] [address] CO2 [Moles/Vol] 30 mmol/L Normal 23-31 [facility] [place] Comment on above: Performed By: #### B MP, GFR #### [address] [address] Creatinine [Mass/Vol] 1.01 mg/dL Normal 0.55-1.02 [facility] ([place] Comment on above: Performed By: #### B MP, GFR #### [address] [address] Electrolyte Balance 9.0 mEq/L Normal [facility] Comment on above: Performed By: #### B MP, GFR #### [address] [address] Glucose [Mass/Vol] 97 mg/dL Normal 83-110 [facility] [place] Comment on above: Performed By: #### B MP, GFR #### [address] [address] Potassium [Moles/Vol] 4.1 mmol/L Normal 3.5-5.1 [facility] ([place] Comment on above: Performed By: #### B MP, GFR #### [address] [address] Sodium [Moles/Vol] 139 mmol/L Normal 136-145 [facility] Comment on above: Performed By: #### B MP, GFR #### [address] [address] Urea nitrogen [Mass/Vol] 19 mg/dL High 7-18 [facility] [place] Comment on above: Performed By: #### B MP, GFR #### [address] [address] Urea nitrogen/Creatinine [Mass ratio] 19 ratio Normal 7-27 [facility] [place] Comment on above: Performed By: #### B MP, GFR #### [address] [address] CBCon 08-27-2018 Erythrocyte distribution width (RBC) [Ratio] 12.6 % Normal 11.5-14.5 [facility] [place] Comment on above: Performed By: #### JR ABDULLAHI, ANEU #### [place] [address] [address] Hematocrit (Bld) [Volume fraction] 35.3 % Low 37.0-47.0 [facility] [place] Comment on above: Performed By: #### JR ABDULLAHI, ANEU #### [place] [address] [address] Hemoglobin (Bld) [Mass/Vol] 12.5 G/dL Normal 12.0-16.0 [facility] [place] Comment on above: Performed By: #### JR ABDULLAHI, ANEU #### [place] [address] [address] MCH (RBC) [Entitic mass] 32.2 pg High 27.0-31.2 [facility] [place] Comment on above: Performed By: #### JR ABDULLAHI, ANEU #### [address] [address] MCHC (RBC) [Mass/Vol] 35.3 G/dL Normal 33.0-37.0 [facility] ([place]) Comment on above: Performed By: #### JR ABDULLAHI, ANEU #### [place] [address] [address] MCV (RBC) [Entitic vol] 91.2 fL Normal 80.0-94.0 [facility] ([place]) Comment on above: Performed By: #### RJ ABDULLAHI, ANEU #### [place] [address] [address] Platelet mean volume (Bld) [Entitic vol] 8.2 fL Normal 7.4-10.4 [facility] [place] Comment on above: Performed By: #### C JR RIDER, ANEU #### [address] [address] Platelets (Bld) [#/Vol] 323 10 3/mcL Normal 130-400 [facility] [place] Comment on above: Performed By: #### JR ABDULLAHI, ANEU #### [address] [address] RBC (Bld) [#/Vol] 3.87 10 6/mcL Low 4.20-5.40 Counts include 234 beds at the [facility] ([place] Comment on above: Performed By: #### JR ABDULLAHI, ANEU #### [address] [address] WBC (Bld) [#/Vol] 8.60 10 3/mcL Normal 4.60-10.80 Counts include 234 beds at the [facility] ([place] Comment on above: Performed By: #### JR ABDULLAHI, ANEU #### [address] [address] [address] KNEE W/O CONTRAST RIGHTon 08-27-2018 CT [...] PM Sign Date: 08/27/2018 3:14:38 PM Normal [facility] OVon 05-18-2017 [facility] Office Visit (UCTR) YAJAIRA BUNN ([id number]) 1945 FDate Time Provider Department05/18/17 11:00 AM RAMBO SAUCEDO [facility] During your visit today, we recorded the [...] HCT 160 MG-12.5 MG TABLET >> Hoa Dosrey LPN 05/18/2017 11:30 AM >> HOA DORSEY LPN [facility] May 18, 2017 11:30 AM Not [...] by RAMBO SAUCEDO MD on 05/18/[address] [facility] PROGRESSon 05-18-2017 PROGRESS HNO ID: [id number]: Rambo Rojaservice: (none)Author Type: PhysicianType: Progress NotesFiled: [...] chest pain, shortness of breath.Rambo Saucedo MD [facility] Vital Signs Date Time Vital Sign Value Performing Clinician Godfrey young 11-20-2024 12:58-0400 Body height 152.4 cm Se Bryan MD Work Phone: [facility] 11-20-2024 12:58-0400 Body mass index (BMI) [Ratio] 33.5 kg/m2 Se Bryan MD Work Phone: [facility] 11-20-2024 12:58-0400 Body temperature 97.6 [degF] Se Bryan MD Work Phone: [facility] 11-20-2024 12:58-0400 Body weight 78.01 kg Se Bryan MD Work Phone: [facility] 11-20-2024 12:58-0400 Diastolic blood pressure 90 mm[Hg] Se Bryan MD Work Phone: [facility] 11-20-2024 12:58-0400 Heart rate 72 /min Se Bryan MD Work Phone: [facility] 11-20-2024 12:58-0400 Respiratory rate 18 /min Se Bryan MD Work Phone: [facility] 11-20-2024 12:58-0400 SaO2% (BldA) [Mass fraction] 99 % Se Bryan MD Work Phone: [facility] 11-20-2024 12:58-0400 Systolic blood pressure 170 mm[Hg] Se Bryan MD Work Phone: [facility] 10-24-2024 15:21-0400 Body height 152.4 cm Se Bryan MD Work Phone: [facility] 10-24-2024 15:21-0400 Body mass index (BMI) [Ratio] 33.4 kg/m2 Se Bryan MD Work Phone: [facility] 10-24-2024 15:21-0400 Body weight 77.56 kg Se Bryan MD Work Phone: [facility] 10-24-2024 15:21-0400 Diastolic blood pressure 76 mm[Hg] Se Bryan MD Work Phone: [facility] 10-24-2024 15:21-0400 Heart rate 82 /min Se Bryan MD Work Phone: [facility] 10-24-2024 15:21-0400 SaO2% (BldA) [Mass fraction] 98 % Se Bryan MD Work Phone: [facility] 10-24-2024 15:21-0400 Systolic blood pressure 151 mm[Hg] Se Bryan MD Work Phone: [facility] 08-28-2024 21:00-0400 Diastolic blood pressure 70 mm[Hg] Se Bryan MD Work Phone: [facility] 08-28-2024 21:00-0400 Heart rate 79 /min Se Bryan MD Work Phone: [facility] 08-28-2024 21:00-0400 Respiratory rate 22 /min Se Bryan MD Work Phone: [facility] 08-28-2024 21:00-0400 SaO2% (BldA) [Mass fraction] 99 % Se Byran MD Work Phone: [facility] 08-28-2024 21:00-0400 Systolic blood pressure 158 mm[Hg] Se Bryan MD Work Phone: [facility] 08-28-2024 20:17-0400 Body temperature 97.7 [degF] Se Bryan MD Work Phone: [facility] 08-28-2024 17:16-0400 Body height 152.4 cm Se Bryan MD Work Phone: [facility] 08-28-2024 17:16-0400 Body mass index (BMI) [Ratio] 32.8 kg/m2 Se Bryan MD Work Phone: [phone] [place] [address] 08-28-2024 17:16-0400 Body weight 76.24 kg Se Bryan MD Work Phone: [facility] 08-26-2024 13:49-0400 Body height 152.4 cm Se Bryan MD Work Phone: [facility] 08-26-2024 13:49-0400 Body mass index (BMI) [Ratio] 33 kg/m2 Se Bryan MD Work Phone: [facility] 08-26-2024 13:49-0400 Body weight 76.65 kg Se Bryan MD Work Phone: [facility] 08-26-2024 13:49-0400 Diastolic blood pressure 80 mm[Hg] Se Bryan MD Work Phone: [facility] 08-26-2024 13:49-0400 Heart rate 85 /min Se Bryan MD Work Phone: [facility] 08-26-2024 13:49-0400 SaO2% (BldA) [Mass fraction] 96 % Se Bryan MD Work Phone: [facility] 08-26-2024 13:49-0400 Systolic blood pressure 144 mm[Hg] Se Bryan MD Work Phone: [facility] 02-22-2023 13:06-0500 Body height 152.4 cm [facility] 02-22-2023 13:06-0500 Body mass index (BMI) [Ratio] 31.2 kg/m2 [facility] 02-22-2023 13:06-0500 Body temperature 97.3 [degF] [facility] 02-22-2023 13:06-0500 Body weight 72.57 kg [facility] 02-22-2023 13:06-0500 Diastolic blood pressure 62 mm[Hg] [facility] 02-22-2023 13:06-0500 Heart rate 83 /min [facility] 02-22-2023 13:06-0500 Respiratory rate 16 /min [facility] 02-22-2023 13:06-0500 SaO2% (BldA) [Mass fraction] 97 % [facility] 02-22-2023 13:06-0500 Systolic blood pressure 157 mm[Hg] [facility] 10-20-2022 11:16-0400 Body height 152.[address] Danny Jeronimo Work Phone: [facility] 10-20-2022 11:16-0400 Body mass index (BMI) [Ratio] 33 kg/m2 Dr. Danny Jeronimo Work Phone: [facility] 10-20-2022 11:16-0400 Body temperature 98.3 [degF] Dr. Danny Jeronimo Work Phone: [facility] 10-20-2022 11:16-0400 Body weight 76.[address] Danny Jeronimo Work Phone: [facility] 10-20-2022 11:16-0400 Diastolic blood pressure 70 mm[Hg] Dr. Danny Jeronimo Work Phone: [facility] 10-20-2022 11:16-0400 Heart rate 74 /min Dr. Danny Jeronimo Work Phone: [facility] 10-20-2022 11:16-0400 Respiratory rate 18 /min Dr. Danny Jeronimo Work Phone: [facility] 10-20-2022 11:16-0400 SaO2% (BldA) [Mass fraction] 98 % Dr. Danny Jeronimo Work Phone: [facility] 10-20-2022 11:16-0400 Systolic blood pressure 146 mm[Hg] Dr. Danny Jeronimo Work Phone: [facility] 08-24-2022 12:54-0400 Body height 152.4 cm [facility] 08-24-2022 12:54-0400 Body mass index (BMI) [Ratio] 32.2 kg/m2 [facility] 08-24-2022 12:54-0400 Body temperature 97.9 [degF] [facility] 08-24-2022 12:54-0400 Body weight 74.84 kg [facility] 08-24-2022 12:54-0400 Diastolic blood pressure 6 mm[Hg] [facility] 08-24-2022 12:54-0400 Heart rate 76 /min [facility] 08-24-2022 12:54-0400 Respiratory rate 16 /min [facility] 08-24-2022 12:54-0400 SaO2% (BldA) [Mass fraction] 96 % [facility] 08-24-2022 12:54-0400 Systolic blood pressure 156 mm[Hg] [facility] 02-23-2022 12:56-0500 Body height 152.4 cm [facility] 02-23-2022 12:56-0500 Body mass index (BMI) [Ratio] 32.2 kg/m2 [facility] 02-23-2022 12:56-0500 Body temperature 97 [degF] [facility] 02-23-2022 12:56-0500 Body weight 74.84 kg [facility] 02-23-2022 12:56-0500 Diastolic blood pressure 54 mm[Hg] [facility] 02-23-2022 12:56-0500 Heart rate 84 /min [facility] 02-23-2022 12:56-0500 Respiratory rate 16 /min [facility] 02-23-2022 12:56-0500 SaO2% (BldA) [Mass fraction] 96 % [facility] 02-23-2022 12:56-0500 Systolic blood pressure 144 mm[Hg] [facility] 10-26-2021 13:27-0400 Body height 152.[address] Jenaro Loo Work Phone: [facility] Work Phone: 10-22-2021 11:34-0400 Body mass index (BMI) [Ratio] 32.9 kg/m2 Dr. Jenaro Loo Work Phone: [facility] Work Phone: 10-22-2021 11:34-0400 Body temperature 96.6 [degF] Dr. Jenaro Loo Work Phone: [facility] Work Phone: 10-22-2021 11:34-0400 Body weight 76.[address] Jenaro Loo Work Phone: [facility] Work Phone: 10-22-2021 11:34-0400 Diastolic blood pressure 69 mm[Hg] Dr. Jenaro Loo Work Phone: [facility] Work Phone: 10-22-2021 11:34-0400 Heart rate 83 /min Dr. Jenaro Loo Work Phone: [facility] Work Phone: 10-22-2021 11:34-0400 Respiratory rate 16 /min Dr. Jenaro Loo Work Phone: [facility] Work Phone: 10-22-2021 11:34-0400 SaO2% (BldA) [Mass fraction] 93 % Dr. Jenaro Loo Work Phone: [facility] Work Phone: 10-22-2021 11:34-0400 Systolic blood pressure 123 mm[Hg] Dr. Jenaro Loo Work Phone: [facility] Work Phone: 08-18-2021 12:48-0400 Body height 152.4 cm [facility] Work Phone: 08-18-2021 12:48-0400 Body mass index (BMI) [Ratio] 31.2 kg/m2 [facility] Work Phone: 08-18-2021 12:48-0400 Body temperature 97.9 [degF] [facility] Work Phone: 08-18-2021 12:48-0400 Body weight 72.57 kg [facility] Work Phone: 08-18-2021 12:48-0400 Diastolic blood pressure 54 mm[Hg] [facility] Work Phone: 08-18-2021 12:48-0400 Heart rate 79 /min [facility] Work Phone: 08-18-2021 12:48-0400 Respiratory rate 14 /min [facility] Work Phone: 08-18-2021 12:48-0400 SaO2% (BldA) [Mass fraction] 98 % [facility] Work Phone: 08-18-2021 12:48-0400 Systolic blood pressure 132 mm[Hg] [facility] Work Phone: Encounters Encounter Date Encounter Type Care Provider Facility Start: 01-03-2025 ambulatory [facility]on [facility] Facility:[facility] Start: [facility] Start: 12-03-2024 ambulatory Chalon [facility] Facility:[facility] Start: 11-20-2024 End: 11-20-[address] Je Burnett MD -[facility] Work Phone: Start: 11-20-2024 End: 11-20-2024 ambulatory Se Bryan MD Work Phone: -[facility] Start: 11-15-2024 End: 11-15-2024 ambulatory Se Bryan MD Work Phone: -Laboratory Start: 11-15-2024 End: 11-15-[address] Guicho Quezada MD -Laboratory Work Phone: Start: 11-15-2024 End: 11-15-2024 ambulatory Chalon Randi Facility:[facility] Start: 11-05-2024 End: 11-05-2024 ambulatory Se Bryan MD Work Phone: -Nuclear Medicine [facility] Start: 11-05-2024 End: 11-05-2024 Patient encounter procedure Kristie Montes BUSINESS AND FINANCIAL COUNSEL-C -Nuclear Medicine [facility] Work Phone: Start: 11-04-2024 End: 11-05-2024 ambulatory Se Bryan MD Work Phone: -Ultrasound [facility] Start: 11-04-2024 End: 11-04-[address] Guicho Quezada MD -Ultrasound [facility] Work Phone: Start: 11-04-2024 End: 11-04-2024 ambulatory Chalon Randi Facility:[facility] Start: 10-24-2024 End: 10-24-[address] Guicho Quezada MD -[facility] Work Phone: Start: 10-24-2024 End: 10-24-2024 ambulatory Se Bryan MD Work Phone: -[facility] Start: 10-11-2024 End: 10-11-2024 ambulatory Se Bryan MD Work Phone: -Laboratory [facility] Start: 10-11-2024 End: 10-11-[address] Guicho Quezada MD -Laboratory [facility] Work Phone: Start: 10-11-2024 End: 10-11-2024 ambulatory [facility] Facility:[facility] Start: 08-28-2024 End: 08-28-2024 Emergency department patient visit Se Bryan MD Work Phone: -Emergency Department Work Phone: Start: 08-26-2024 End: 08-26-[address] Guicho Quezada MD -[facility] Work Phone: Start: 08-26-2024 End: 08-26-2024 ambulatory Se Bryan MD Work Phone: -[facility] Start: 08-26-2024 End: 08-26-2024 ambulatory Chalon Randi Facility:[facility] Start: 02-23-2024 End: 02-23-2024 ambulatory Chalon Randi Facility:[facility] Start: 12-26-2023 End: 12-26-2023 ambulatory Chalon Randi Facility:[facility] Start: 06-20-2023 Non-patient / Non-visit DO Katie Singleton Work Phone: [facility] Start: 06-20-2023 End: 06-20-2023 ambulatory DO Katie Singleton Work Phone: [facility] Work Phone: Start: 06-20-2023 End: 06-20-2023 Patient encounter procedure DO Katie Singleton Work Phone: [facility]-Pulmonary Services/Neurology Work Phone: Start: 04-11-2023 End: 04-11-2023 Patient encounter procedure DO Katie Singleton Work Phone: [facility] Work Phone: Start: 02-22-2023 End: 02-22-2023 ambulatory [facility] Work Phone: Start: 02-22-2023 End: 02-22-2023 Patient encounter procedure [facility]-Medical Out Work Phone: Start: 12-05-2022 End: 12-05-[address] Danny Jeronimo Work Phone: [facility] Work Phone: Start: 12-05-2022 End: 12-05-[address] Danny Jeronimo Work Phone: [facility]-Outpatient Breast Imaging Work Phone: Start: 10-20-2022 End: 10-20-[address] Danny Jeronimo Work Phone: [facility] Endocrinology Work Phone: Start: 10-11-2022 End: 10-11-[address] Danny Jeronimo Work Phone: [facility] Work Phone: Start: 10-11-2022 End: 10-11-[address] Danny Jeronimo Work Phone: [facility]-Laboratory Work Phone: Start: 09-28-2022 Non-patient / Non-visit Dr. Danny Jeronimo Work Phone: [facility] Start: 09-28-2022 End: 09-28-[address] Danny Jeronimo Work Phone: [facility] Work Phone: Start: 09-28-2022 End: 09-28-[address] Danny Jeronimo Work Phone: [facility]-Pulmonary Services/Neurology Work Phone: Start: 08-24-2022 End: 08-24-2022 ambulatory [facility] Work Phone: Start: 08-24-2022 End: 08-24-2022 Patient encounter procedure [facility]-Medical Out Work Phone: Start: 03-31-2022 End: 03-31-2022 ambulatory [facility] Work Phone: Start: 03-31-2022 End: 03-31-2022 Patient encounter procedure [facility]-Laboratory, [place] Start: 02-23-2022 End: 02-23-2022 ambulatory [facility] Work Phone: Start: 02-23-2022 End: 02-23-2022 Patient encounter procedure [facility]-Medical Out Start: 10-26-2021 End: 10-26-[address] Jenaro Loo Work Phone: [facility] Work Phone: Start: 10-26-2021 End: 10-26-[address] Jenaro Loo Work Phone: [facility]-Outpatient Bone Densitometry Start: 10-22-2021 End: 10-22-[address] Jenaro Loo Work Phone: [facility] Endocrinology Start: 09-24-2021 End: 09-24-2021 [facility] Start: 08-18-2021 End: 08-18-2021 Patient encounter procedure [facility] Out Start: 05-18-2017 End: 05-18-2017 Ambulatory [facility] Procedures Date Procedure Procedure Detail Performing [...] 12-05-2022 Screening mammography SCRN MAMM (CAD)W/OMEGA BILAT [facility] Basic metabolic 2008 panel with ionized calcium - Serum or Plasma [facility] Cobalamin (Vitamin B 12) [Mass/volume] in Serum or Plasma [facility] Ferritin [Mass/volum e] in Serum or Plasma [facility] Patient Education Hypercalcemia [facility] Work Phone: Vitamin D, 25-hydrox y measurement [facility] Work Phone: Vitamin D, 25-hydrox y measurement [facility] Work Phone: [facility] Immunizations Immunization Date Immunization Notes Care Provider Fa [facility] 01-14-2021 Covid (Moderna) [facility] 05-25-2020 [facility] 04-27-2020 Covid ([facility]) [facility] Payers Date Payer Category Payer Self-pay [id number] 2023 Unknown [id number] Medicare [id number] Unknown [id number] 2.16.8 [id number] Unknown [id number] 2.16.8 [id number] Unknown [id number] 2.16.8 [id number] Unknown [id number] 2.16.8 [id number] Unknown [id number] 2.16.8 [id number] Unknown [id number] 2.16.8 [id number] Unknown [id number] 2.16.8 [id number] Unknown [id number] 2.16.8 [id number] Unknown [id number] 2.16.8 [id number] Unknown [id number] 2.16.8 [id number] Unknown [id number] 2.16.8 [id number] Unknown [id number] 2.16.8 [id number] Unknown [id number] 2.16.8 [id number] Unknown [id number] 2.16.8 [id number] Social History Date Type Detail Facility Start: 10-31-2019 End: 04-11-2023 Tobacco smoking status NHIS Unknown if ever smoked [facility] Start: 08-18-2020 Rare [facility] Start: 08-18-2020 None [facility] Start: 08-18-2020 Homeless [facility] Start: 08-18-2020 Non-smoker [facility] Start: 1945 Sex Assigned At Female [facility] Start: 01-24-2024 End: 08-28-2024 Tobacco smoking status NHIS Ex-smoker (finding) [facility] Sex Female [facility] Mental Status Date Assessment Result Facility 08-28-2024 Cognitive function Level Of Cons ciousness Awake;Alert;Appropriate;Follow s Commands [facility] Work Phone: 02-22-2023 Cognitive function Voice/Name [facility] Work Phone: 08-24-2022 Cognitive function Awake;Alert;A ppropriate;Follow s Commands [facility] Work Phone: 02-23-2022 Cognitive function Voice/Name [facility] Work Phone: 08-18-2021 Cognitive function Voice/Name [facility] Work Phone: Clinical Notes 09-28-2022 to 11-20-2024 Note Date & Type Note Facility 11-20-2024 Progress note [facility] 11-20-2024 Progress note Note Date/Time November 20, 2024 2:24pm [facility] [address] [place] [address] OFFICE VISIT Date of Service: 11/20/24 MR#: [id number] Acct: [id number] Name: YAJAIRA BUNN Rep #: [id number] : 1945 Provider: Dr. Jh Burnett MD Age/Sex: 79/F Location: [facility] Status: Signed Intake Vital Signs 10/24/24 15:21 [...] PO BID 08/18/21 11/20/24 History mg-copper 1 rc-ibzkgv-igesfm capsule (PreserVision AREDS-2) denosumab 60 mg/mL subcutaneous 60 mg subcut [id number] #1 mL 10/20/22 11/20/24 Rx syringe (Prolia) [...] initially identified by Dr. Jenaro Conroy at [facility] due to elevated calcium levels exceeding [...] fallen in the past year?: No 11/20/24 0951 <Electronically signed by Je Burnett MD> Date _ Je Burnett MD Cosigner Signature: Date (if applicable) CC: Dr. Se Bryan MD; Dr. Guicho Quezada MD ~ [facility] Work Phone: 1(620) 327-413909-09-2025 Nuclear medicine Diagnostic study note [facility] Imaging Services [address] [place] [address] Parathyroid Scan MR#: [id number] Acct: [id number] Name: YAJAIRA BUNN Rep #: [id number] : 1945 F 79 From: Lefty Murillo MD PCP: Dr. Se Bryan MD Status: REG CL I Study:Parathyroid Scan Date of Exam: 11/21 Exam# [id number] Ordering Dr: Levon Quezada i, MD PROCEDURE: [...] a left inferior parathyroid adenoma. Reading Location: [place] [address] CC: OMA Montes; Dr. Se Bryan MD; Dr. Guicho Quezada MD ~ Event Specialist: Signed [facility]09-08-2025 Radiology Diagnostic study note [facility] Imaging Services [address] [place] [address] Thyroid MR#: [id number] Acct: [id number] Name: YAJAIRA BUNN Rep #: [id number] : 1945 F 79 From: Benny Siegel MD PCP: Dr. Se Bryan MD Status: REG CL I Study:Thyroid Date of Exam: 11/04/24 Exam# [id number] Ordering Dr: Levon Quezada i, MD PROCEDURE: [...] Bryan MD; Dr. Guicho Quezada MD ~ Event Specialist: Signed [facility]07-02-2025 Discharge summary [facility] Medical Records Department [address] [place] [address] Emergency Department Summary 08/28/24 MR#: [id number] Acct: [id number] Name: YAJAIRA BUNN Rep #:[id number] : 1945 78 From: Lorne Cherry MD [...] PO BID 08/18/21 Unknown History mg-copper 1 co-eorkkv-xkaekq capsule (PreserVision AREDS-2) denosumab 60 mg/mL subcutaneous 60 mg subcut [id number] #1 mL 10/20/22 Unknown Rx syringe (Prolia) [...] for EKG changes. Should be a short ID interval etc. Lab Data Lab results narrative: [...] % (Auto) 67.4 Lymph % (Auto) 19.2 Kimble % (Auto) 9.6 Eos % (Auto) 2.7 [...] follows: Interpretation: Sinus Rhythm (Rate is 79. [place] the left. ID interval is 204 ms. Cures duration 80 [...] Prolia 60 mg/mL syringe 60 mg SC [id number] Qty: 1 1RF cholecalciferol (vitamin D3) 25 mcg (1,000 unit) capsule 50 mcg PO QDAY omeprazole magnesium 20 MG tablet,delayed release (DR/EC) 20 mg PO DAILY PreserVision AREDS-2 250-90-40-1 mg Capsule 1 tab PO BID Primary Care Provider: Se Bryan Referrals: Se Bryan MD [Primary Care Provider] - Guicho Quezada MD [Med Staff - Courtesy Staff] - As Needed Print Language: [place] Disposition Disposition: Home, Self Care What to do if you have Problems For any increased pain, shortness of breath, bleeding, nausea or vomiting, chestpain, or any unexpected problems, contact your Primary Care Provider. Call [facility] ([phone]) or report tothe closest Emergency Room. Call 911 if necessary. 08/28/242022 Cosigner Signature (if applicable): CC: Dr. Se Bryan MD ~ Signed [facility]07-02-2025 Discharge summary Author Lorne Cherry [facility] Note Date/Time August 28, 2024 8:23p m [facility] Medical Records Department [address] [place] [id number] Emergency Department Summary 08/28/24 MR#: [id number] Acct: [id number] Name: YAJAIRA BUNN Rep #:[id number] : 1945 78 From: Lorne Cherry MD [...] Prior similar symptoms: Yes Recent [facility] Medical History Vitamin D deficiency Abnormal mammogram [...] PO BID 08/18/21 Unknown History mg-copper 1 vj-seiwbr-rjhmwn capsule (PreserVision AREDS-2) denosumab 60 mg/mL subcutaneous 60 mg subcut [id number] #1 mL 10/20/22 Unknown Rx syringe (Prolia) [...] for EKG changes. Should be a short ID interval etc. Lab Data Lab results narrative: [...] % (Auto) 67.4 Lymph % (Auto) 19.2 Kimble % (Auto) 9.6 Eos % (Auto) 2.7 [...] follows: Interpretation: Sinus Rhythm (Rate is 79. [place] the left. ID interval is 204 ms. Cures duration 80 [...] Prolia 60 mg/mL syringe 60 mg SC [id number] Qty: 1 1RF cholecalciferol (vitamin D3) 25 mcg (1,000 unit) capsule 50 mcg PO QDAY omeprazole magnesium 20 MG tablet,delayed release (DR/EC) 20 mg PO DAILY PreserVision AREDS-2 250-90-40-1 mg Capsule 1 tab PO BID Primary Care Provider: Se Bryan Referrals: Se Bryan MD [Primary Care Provider] - Guicho Quezada MD [Med Staff - Courtesy Staff] - As Needed Print Language: [place] Disposition Disposition: Home, Self Care What to do if you have Problems For any increased pain, shortness of breath, bleeding, nausea or vomiting, chestpain, or any unexpected problems, contact your Primary Care Provider. Call [email or web address] ([phone]) or report to the closest Emergency Room. Call 911 if necessary. 08/28/242022 <Electronically signed by Lonre Cherry MD> Cosigner Signature (if applicable): CC: Dr. Se Bryan MD ~ Signed [facility] Work Phone: 1(796) 603-661606-30-2025 Evaluation note* Diagnosis Onset Date Resolution Status Admit Date Osteoporosis chronic August 26, 025 1:50pm Primary hyperparathyroidism chronic August 26, 2024 1:50pm Vitamin D deficiency chronic August 26, 2024 1:50pm [facility] Work Phone: 1(176) 357-243806-30-2025 Evaluation note* Diagnosis Onset Date Resolution Status Admit Date Osteoporosis chronic August 26, 025 1:50pm Primary hyperparathyroidism chronic August 26, 2024 1:50pm Vitamin D deficiency chronic August 26, 2024 1:50pm Primary hyperparathyroidism chronic October 24, 2024 3:21pm Primary hyperparathyroidism chronic November 20, 2024 12:45pm [facility] Work Phone: 1(858) 345-662806-30-2025 Progress [facility] [address] [place] [address] OFFICE VISIT Date of Service: 08/26/24 MR#: [id number] Acct: [id number] Name: YAJAIRA BUNN Rep #: [id number] : 1945 Provider: Dr. 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 ) [facility] Medical History Vitamin D deficiency Abnormal mammogram [...] Procedure performed by: Estefany Oakley Lot number: [id number] Coil Winder Hand: [employer] date: 02/26/27 Dose of injection: 1mL Site of injection: Sub-Q Medication Given: Yes Is this a patient provided medication?: No Office Meds Prolia 60 mg/mL subcutaneous syringe Performing Provider: Guicho Quezada MD Performing Location: [facility] Administered by: Estefany Oakley on 08/26/24 14:02 Dose Route Admin Location Dispensed Lot Number Expiration Date [facility] Coil [place]inder Hand 60 mg subcut Lt Arm 1 mL [id number] 02/26/27 85717-738-99 [employer] Clinical Quality Measures Falls Risk Screening/Assistive [...] applicable) CC: Dr. Se Bryan MD ~ [facility] [id number] Progress note Author Guicho Quezada [facility] Note Date/Time August 26, 2024 2:16 pm [facility] [address] [place] [address] OFFICE VISIT Date of Service: 08/26/24 MR#: [id number] Acct: [id number] Name: YAJAIRA BUNN Rep #: [id number] : 1945 Provider: Dr. 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 Machine Operator Required: No Accompanied by: Self Is [...] PO BID 08/18/21 08/26/24 History mg-copper 1 rg-tntgyq-krxowf capsule (PreserVision AREDS-2) denosumab 60 mg/mL subcutaneous 60 mg subcut [id number] #1 mL 10/20/22 08/26/24 Rx syringe (Prolia) [...] Procedure performed by: Estefany Oakley Lot number: [id number] Coil Winder Hand: [employer] date: 02/26/27 Dose of injection: 1mL Site of injection: Sub-Q Medication Given: Yes Is this a patient provided medication?: No Office Meds Prolia 60 mg/mL subcutaneous syringe Performing Provider: Guicho Quezada MD Performing Location: [facility] Administered by: Estefany Oakley on 08/26/24 14:02 Dose Route Admin Location Dispensed Lot Number Expiration Date [facility] Coil W[employer] Hand 60 mg subcut Lt Arm 1 mL [id number] 02/26/27 65835-491-10 [employer] Clinical Quality Measures Falls Risk Screening/Assistive [...] Quezada MD> Date _ [facility] Signature: Date (if applicable) CC: Dr. Se Bryan MD ~ [facility] Work Phone: 1(989) 629-485704-23-2024 Procedure [facility] 09-28-2022 [facility] note[facility] Work Phone: Evaluation note* Diagnosis Onset Date Resolution Status Vitamin D deficiency acute Osteoporosis chronic Primary hyperparathyroidism [facility] Work Phone: Evaluation note* Diagnosis Onset Date Resolution Status Osteoporosis chronic Primary hyperparathyroidism chronic Vitamin D deficiency [facility] Work Phone: Evaluation note* Diagnosis Onset Date Resolution Status Admit Date Osteoporosis chronic August 26, 1:50pm Primary hyperparathyroidism chronic August 26, 2024 1:50pm Vitamin D deficiency chronic August 26, 2024 1:50pm [facility] Work Phone: Reason for referral (narrative)No reason for referral information [facility] Work Phone: Summary Purpose Family History No Family History Records Found Relationship Condition Age at Onset Recorded Date/T jamie grandmother Malignant neoplasm of breast Unknown Advance Directives No Advanced Directives Records Found Advance Directive Response Recorded Date/ Time Living Will No May 20, 2017 6:21pm Power of Full Stack Net Developer No May 20 6:21pm Advance Directive Response Recorded Date/ Time Living Will No May 20, 2017 5:21pm Power of Full Stack Net Developer No May 20 5:21pm Advance Directive Response Recorded Date/ Time Do you have a [facility] Power of Full Stack Net Developer? Yes August 28, 2024 6:16pm Chief Complaint [...] section and content) DATE CREATED AUTHOR 08/18/2017 [facility] DATE CREATED AUTHOR AUTHOR'S ORGANIZ ATION 10/19/2018 [facility] ([place]) DATE CREATED AUTHOR AUTHOR'S ORGANIZ ATION 12/13/2024 [facility] Goals (unrecognized section and content) Goals [...] BE BASED ON THE PRIMARY CLINICAL RECORDS. [employer] provides no warranty or guarantee of the accuracy or completeness of information in this document.
== END | disposition home or self-care (01) ==
PROVIDERS: PCP Family Medicine; Referring Provider Family Medicine; Visit Provider Family Medicine
DX: R92.8 Other abnormal and inconclusive findings on diagnostic imaging of breast (principal)
CPT/HCPCS: 76642; 77061; 77065; G0279

== ENCOUNTER 2025-01-01 16:42 | Inpatient (IN) | payer MEDICARE, SELFPAY ==
[2025-01-01 16:43] VITALS: BP 185/78; PULSE 93; RESP 18; TEMP 36.1; O2SAT 96; BMI 32.1
[2025-01-01] MEDS: 0.9% Normal Saline (1000mL) 1,000 ML 500 ML IV (17:40)
--- NOTE | 2025-01-01 18:17 | EX.ED.DYSGE1 ---
HPI History of Present Illness Chief Complaint: Abn Labs Detail of Chief Complaint: Elevated calcium Informant: patient and spouse/S.O. Onset/Context/Timing Onset: Weeks and - (Elevated since last month) Context: Sudden Onset Timing: Continuous Quality: Increased thirst, increased urination, weight loss, fatigue Location: Endocrine, diagnosed with primary hyperparathyroidism Current Severity: Moderate Maximum Severity: Moderate Worsened by: Primary hyperparathyroidism Relieved by: Nothing Associated Symptoms Associated Symptoms: Polydipsia, polyuria, Narrative Narrative: patient is a 79-year-old woman. She was seen August of this year by me and diagnosed with hypercalcemia. She was symptomatic and admitted at that time. She has since seen Dr. Quezada. She was diagnosed with primary hyperparathyroidism. She has seen Dr. Burnett. She is scheduled for surgery on January 03. She had blood work done by her primary care physician. Her calcium is 14. She does have symptoms of hypercalcemia i.e. polyuria, polydipsia, fatigue and decreased appetite. She denies headache, visual, ocular or auditory symptoms. She denies cardiac respiratory symptoms. She denies abdominal pain, nausea, vomiting or diarrhea. She denies any urologic symptoms other than the polyuria. She attributes this to drinking more fluids because she is thirsty. Prior similar symptoms: Yes Recent Illness/Hospitalization: No PFSH PFSH Medical History Wears hearing aid Wears contact lenses Post-menopausal Alcohol use Thyroid disease Low iron High cholesterol Restless legs Fainted Gastric reflux Shortness of breath on exertion Former smoker History of pain when walking History of edema History of echocardiogram Vitamin D deficiency Abnormal mammogram of right breast Heart murmur Arthritis HTN (hypertension) Home Medications ?Medication ?Instructions ?Recorded ?Last Taken ?Type omeprazole magnesium 20 mg 20 mg PO DAILY acid reflux 05/20/17 Unknown History tablet,delayed release aspirin 81 mg chewable tablet 81 mg PO QDAY heart 08/17/17 Unknown History ferrous sulfate 325 mg (65 mg 325 mg PO DAILY low iron 10/23/20 Unknown History iron) tablet (FeroSul) latanoprost 0.005 % eye drops 1 ml ophthalmic (eye) QHS retinal 10/23/20 Unknown History lisinopril 20 mg tablet 20 mg PO DAILY bp 10/23/20 Unknown History simvastatin 20 mg tablet 20 mg PO QHS low cholestrol 10/23/20 Unknown History vit C 250 mg-vit E 90 mg-zinc 40 1 tab PO BID eye health 08/18/21 Unknown History mg-copper 1 [id number] capsule (PreserVision AREDS-2) denosumab 60 mg/mL subcutaneous 60 mg subcut [id number] bnes #1 mL 10/20/22 Unknown Rx syringe (Prolia) cinacalcet 30 mg tablet 30 mg PO QDAY lower parathyroid 10/11/24 Unknown Rx #30 tabs Allergy/AdvReac Type Severity Reaction Status Date / Time No Known Allergies Allergy Verified 01/01/25 16:43 Family History Grandmother Breast cancer Surgical History History of incision and drainage History of carpal tunnel surgery of right wrist Hx of total hip arthroplasty H/O colonoscopy History of hip surgery Social History household members: spouse Smoking Status: Former smoker alcohol intake: current alcohol intake frequency: holidays/special occasions only ROS ROS ED Constitutional Constitutional ED: Denies chills, fever(s) or subjective Eyes Eyes: Denies blurry vision or change in vision ENT ENT ED: Denies ear pain, rhinorrhea or sore throat Cardiovascular Cardiovascular: Denies chest pain or palpitations Respiratory/Chest Respiratory/Chest: Denies cough, dyspnea or dyspnea on exertion Gastrointestinal Gastrointestinal: Denies abdominal pain, nausea or vomiting Genitourinary Genitourinary ED: Denies dysuria, hematuria or urinary frequency Musculoskeletal Musculoskeletal: Denies arthralgias, myalgias or neck pain Integumentary Denies rash Neurologic Neurologic: Reports weakness; Denies headache(s) or paresthesias Psychiatric Psychiatric: Denies anxiety or depression Endocrine Endocrinology: Denies cold intolerance or heat intolerance Hematologic/Lymphatic Hematologic/Lymphatic: Reports systems reviewed and no addt'l complaints, except as documented EXAM Physical Exam Const Vital Signs: 01/01/25 16:43 01/01/25 17:01 Temperature 97 F L Temperature Source Temporal Pulse Rate 93 Respiratory Rate 18 Respiratory Effort Normal Non-Labored Respiratory Pattern Normal Blood Pressure 185/78 H Blood Pressure Mean 113 Pulse Ox 96 Oxygen Delivery Method Room Air Positive well nourished and well developed General Appearance ED: well developed and NAD; Negative for pallor HEENT Reports dry mucous membranes HEENT Narrative: Head is atraumatic normocephalic. Ears normal Mouth ED: Yes dry mucous membranes Mouth: dry mucous membranes Eyes PERRL and EOMs intact bilaterally General Eye ED: Negative for pale conjunctiva or scleral icterus Neck no lymphadenopathy, supple and no JVD Chest Wall inspection of chest normal and palpation of chest normal Resp normal respiratory effort and clear to auscultation bilaterally Cardio regular rate, regular rhythm, S1 normal heart sound, S2 normal heart sound and no murmurs GI normal to inspection, nondistended, normoactive bowel sounds, non-tender, non-distended and no masses; Negative for hepatosplenomegaly Back/Spine no CVA tenderness Extremity normal to inspection Neuro oriented x3 and CN's II-XII intact bilaterally Sensorium / Orientation: alert Psych mental status grossly normal Skin no rashes or lesions noted, no wounds and skin turgor normal General Skin Exam: elasticity normal; Negative for jaundice or pallor MDM MDM MDM Narrative Medical decision making narrative: Patient with hypercalcemia. Suspect this is due to the primary hyperparathyroidism and the fact that she is taking vitamin D3 daily. Since she had blood work done earlier today this was not repeated. Her electrolyte panel reveals a chloride at 97 which is slightly low. BUN and creatinine are 46 and 2.15. This is elevated from December 03. At that time BUN/creatinine were 19 and 1.05. Estimated GFR was 55 is now 23. Her BUN to creatinine ratio is elevated at approximately 22-1. Liver enzymes were normal. PTH is 279 which is elevated. Labs were not repeated. Treated with IV fluids. Will discuss with hospitalist if they would like me to start her on Lasix. EKG Initial EKG: Attestation: I personally reviewed and interpreted this EKG as follows: Interpretation: Sinus Rhythm (Rate is 80. Parables 168 ms per cures duration 86 ms. QT duration 3 and 48 ms. [place] is normal. Computer is reading inferior infarct of indeterminate age. I am in disagreement) Management Discussion w/another healthcare provider: Hospitalist (Case discussed [facility]. Full admit MedSurg. He will contact Dr. Burnett she is she is scheduled for surgery on Monday.) Discharge Plan Dx/Rx/DC Orders Clinical Impression: Hypercalcemia syndrome, TC (acute kidney injury), Hyperparathyroidism, primary, Elevated blood pressure reading with diagnosis of hypertension Disposition Disposition: Acute Care Hospital [facility] [place] [facility]
--- NOTE | 2025-01-01 18:35 | PCM.HP.STD ---
HPI - General General Date of Admission: 01/01/25 Date of Service: 01/01/25 Chief Complaint: Severe hypercalcemia HPI Narrative YAJAIRA SOSA, is a 79 F who presented to [facility] ED on 01/01/2025 with severe hypercalcemia. Medical history significant for primary hyperparathyroidism, osteoporosis, GERD, hypertension and hyperlipidemia. She follows with Dr. Quezada and recently established with surgery here. She is currently on the schedule for parathyroidectomy with Dr. Burnett on 01/03. She had outpatient labs done today that showed a calcium of 14.0 as well as a creatinine of 2.15 (baseline around 1.0) so she was instructed by Dr. Quezada's office to come to the ED for further evaluation. In the ED she was hypertensive to the 160s to 170 systolic, was otherwise in normal sinus rhythm and stable on room air at rest. She was alert and oriented x 3. She was started on IV fluids and hospitalist was contacted for admission. I saw the patient at bedside in the ED, was present. Patient was sitting back comfortably in bed, conversing normally, in no acute distress. She was answering questions appropriately for me. She does report other hypercalcemia symptoms including polyuria, polydipsia, fatigue and decreased appetite over the past several days. Otherwise no acute concerns currently. Will be admitted for further management. [facility] Medical History Wears hearing aid Wears contact lenses Post-menopausal Alcohol use Thyroid disease Low iron High cholesterol Restless legs Fainted Gastric reflux Shortness of breath on exertion Former smoker History of pain when walking History of edema History of echocardiogram Vitamin D deficiency Abnormal mammogram of right breast Heart murmur Arthritis HTN (hypertension) Home Medications ?Medication ?Instructions ?Recorded ?Last Taken ?Type omeprazole magnesium 20 mg 20 mg PO DAILY acid reflux 05/20/17 Unknown History tablet,delayed release aspirin 81 mg chewable tablet 81 mg PO QDAY heart 08/17/17 Unknown History ferrous sulfate 325 mg (65 mg 325 mg PO DAILY low iron 10/23/20 Unknown History iron) tablet (FeroSul) latanoprost 0.005 % eye drops 1 ml ophthalmic (eye) QHS retinal 10/23/20 Unknown History lisinopril 20 mg tablet 20 mg PO DAILY bp 10/23/20 Unknown History simvastatin 20 mg tablet 20 mg PO QHS low cholestrol 10/23/20 Unknown History vit C 250 mg-vit E 90 mg-zinc 40 1 tab PO BID eye health 08/18/21 Unknown History mg-copper 1 [id number]-[id number] capsule (PreserVision AREDS-2) denosumab 60 mg/mL subcutaneous 60 mg subcut [id number] bnes #1 mL 10/20/22 Unknown Rx syringe (Prolia) cinacalcet 30 mg tablet 30 mg PO QDAY lower parathyroid 10/11/24 Unknown Rx #30 tabs Allergy/AdvReac Type Severity Reaction Status Date / Time No Known Allergies Allergy Verified 01/01/25 16:43 Family History Grandmother Breast cancer Surgical History History of incision and drainage History of carpal tunnel surgery of right wrist Hx of total hip arthroplasty H/O colonoscopy History of hip surgery Social History household members: spouse Smoking Status: Former smoker alcohol intake: current alcohol intake frequency: holidays/special occasions only ROS Constitutional Constitutional: Reports fatigue; Denies chills, fever(s) or weakness Cardiovascular Cardiovascular: Denies chest pain Respiratory/Chest Respiratory/Chest: Denies shortness of breath at rest Gastrointestinal Gastrointestinal: Reports constipation and nausea; Denies abdominal pain, diarrhea or vomiting Genitourinary Genitourinary: Denies dysuria Musculoskeletal Musculoskeletal: Denies arthralgias or myalgias Neurologic Neurologic: Denies dizziness, focal weakness, headache(s), numbness or tingling Endocrine Endocrinology: Reports polydipsia and polyuria Vital Signs Vital Signs Vital Signs: 01/01/25 16:43 01/01/25 17:01 Temperature 97 F L Temperature Source Temporal Pulse Rate 93 Respiratory Rate 18 Respiratory Effort Normal Non-Labored Respiratory Pattern Normal Blood Pressure 185/78 H Blood Pressure Mean 113 Pulse Ox 96 Oxygen Delivery Method Room Air Weight Weight: 74.6 kg Body Mass Index (BMI) 32.1 Physical Exam Const alert, oriented x3 and no apparent distress Constitutional Narrative: Pleasant elderly female, class I obesity, sitting back comfortably in bed, conversing normally, in no acute distress. General Appearance: cooperative and comfortable HEENT normocephalic, head/scalp atraumatic, hearing grossly normal bilaterally, nasal mucous membranes and turbinates normal and moist oral mucous membranes Eyes PERRL, EOMs intact bilaterally and conjunctivae normal Neck full ROM Chest inspection of chest normal Resp normal respiratory effort, normal air movement, no use of accessory muscles and clear to auscultation bilaterally Cardio regular rate, regular rhythm, no murmurs and peripheral pulses 2+ throughout GI normal to inspection, nondistended, normoactive bowel sounds, soft to palpation, non-tender and non-distended Back/Spine normal ROM Extremity normal to inspection, full ROM and no pedal edema Skin no rashes or lesions noted Psych mental status grossly normal Assessment & Plan Assessment/Plan (1) Hypercalcemia: PLAN: Plan Patient is a 79-year-old female who presented to [facility] ED on 01/01/2025 with severe hypercalcemia. 1. Severe hypercalcemia in setting of primary hyperparathyroidism ? [facility]. Calcium 14.0 on admit. Known history of primary hyperparathyroidism, follows with Dr. Quezada. On Prolia every 6 months and was started on Cinacalcet daily after an ED visit in August where calcium was 13.7 and PTH was more elevated than previous. Recently established with surgery and current plan is for parathyroidectomy with Dr. Burnett on 01/03. I discussed over the phone with Dr. Burnett and he is aware patient has been admitted and surgery may need to be pushed back. Patient with polyuria and polydipsia but no mental status changes and otherwise feels well. Given 1 L normal saline in the ED. Will treat with normal saline 250 ml/hr and give 2 doses of subcutaneous calcitonin tonight and tomorrow morning. Continue home Cinacalcet. Follow-up a.m. calcium level. 2. TC ? Creatinine 2.15 on admit, baseline around 1.0. Presumed prerenal TC in setting of fluid losses from severe hypercalcemia above. Giving heavy IV fluid resuscitation as above. Follow-up a.m. BMP and monitor urine output. 3. Hypertension/hyperlipidemia ? Patient hypertensive to the 160s to 170s systolic on admit. Holding home lisinopril given TC as above. Will initiate amlodipine 5 mg daily for now and also order IV hydralazine 10 mg every 4 hours as needed for SBP greater than 170. Continue home aspirin and statin. 4. GERD ? Continue home PPI. 5. Osteoporosis ? No inpatient needs, continue Prolia injections in outpatient setting as instructed by endocrinology. DVT prophylaxis: Heparin subcu CODE STATUS: Full code, verified Expected disposition: Home, 2 to 3 days Total clinical time spent by myself addressing the patient's medical issues, reviewing all the data, and collaborating with patient's care team: 77 minutes. Charges/Coding Visit Charges Inpatient E&M: 82099 Init Hosp L3
[2025-01-01 19:21] VITALS: BP 161/90; PULSE 83; RESP 18; TEMP 36.8; O2SAT 99
[2025-01-01 20:28] LABS: Magnesium 1.7 mg/dL (1.5-2.2)
[2025-01-01 20:30] VITALS: BMI 32.0
[2025-01-01 20:33] VITALS: BP 170/78; PULSE 88; RESP 18; TEMP 36.8; O2SAT 97
[2025-01-01] MEDS: 0.9% Normal Saline (1000mL) 1,000 ML 250 ML IV (20:44)
--- NOTE | 2025-01-01 20:49 | CASEMGMT ---
Care Management Face to Face with patient for initial transition planning/care coordination assessment in the ED.? This creative services writer introduced self and role at [facility]. Patient alert and oriented. Patient willing to participate in assessment and is able to answer all questions appropriately.? Care providers, pharmacy, and demographics verified. Admitting Diagnosis: ?Hypercalcemia Other diagnosis history: ?thyroid disease, arthritis, hypertension PCP: ?Randi Specialists: ??, Endocrinology Preferred Pharmacy: [facility] Insurance: ?[employer] Prescription Benefit: yes Living Will/HPOA: both completed LNOK: ? Living Arrangements: patient and live in a one story home. Patient reports to being independent with ADls and IADls.? Transportation: ?patient drives DME: ?grab bars, walk in shower, raised toilet seat, cane, walker, blood pressure cuff, pulse ox HHC: ?none SNF/Rehab: ?none Community Resources: ?none Behavioral Health History: ?none Patient goals: Patient wishes to discharge home, denies need for home health care at this time. Patient denies any further needs or concerns at this time. Disposition Plan: admission to acute; RN CM/SW to follow for discharge planning needs that may arise. Holly Nicolas, WASTE SPECIALIST, MS SQL SERVER DEVELOPER
[2025-01-01] MEDS: Latanoprost 0.005% 1 Bottle 1 DRP OPHTHALMIC (21:31)
[2025-01-01] MEDS: Heparin Injection (Vial) 5,000 UNIT/ML VIAL 5000 UNIT SC (21:31)
[2025-01-01] MEDS: Multivitamin (Healthy Eyes) Capsule 1 CAP PO (21:31)
[2025-01-02] MEDS: 0.9% Normal Saline (1000mL) 1,000 ML 250 ML IV ×4 (00:26→12:18)
[2025-01-02] MEDS: Heparin Injection (Vial) 5,000 UNIT/ML VIAL 5000 UNIT SC ×2 (04:14→13:49)
[2025-01-02 04:21] VITALS: BP 170/70; PULSE 81; RESP 16; TEMP 37.1; O2SAT 95
[2025-01-02 04:43] LABS: Hematocrit 28.4 % (37-47); Hemoglobin 10.0 g/dL (12.0-15.0); Mean Corp Hgb Conc 35.2 g/dL (32-36); Mean Corpuscular Volume 91.6 fL (81-99); Mean Platelet Vol. 9.5 fl (6.2-12.0); Platelet Count 264 K/mm3 (150-450); RBC Distribution Width CV 11.9 % (11.6-14.6); RBC Distribution Width SD 39.4 fl (35.1-43.9); Red Blood Count 3.10 M/mm3 (4.2-5.4); White Blood Count 7.8 K/mm3 (4.4-11.0)
[2025-01-02 05:18] LABS: Albumin, Serum 3.6 g/dL (3.4-4.8); Anion Gap 9 (5-15); BUN 37 mg/dL (4-19); BUN/Creat Ratio 22.9 RATIO (10-20); Calcium,Total 11.4 mg/dL (7.6-11.0); Carbon Dioxide 22.9 mmol/L (21.0-32.0); Chloride 108 mmol/L (98-108); Estimated Creatinine Clearance 26.51 ml/min (50-250); Glucose 141 mg/dL (70-99); Potassium 3.9 mmol/L (3.3-5.1)
--- NOTE | 2025-01-02 07:09 | PN.HOSP_ITS ---
Reason for Visit
--- NOTE | 2025-01-02 07:09 | PCM.PN.HOSP ---
Reason for Visit Chief Complaint: Severe hypercalcemia Subjective Subjective Feeling well. Objective Data Objective Data Vital Signs: Vital Signs Temp Pulse Resp BP Pulse Ox O2 Del Method 37.1 C 81 16 170/70 H 95 Room Air 01/02/25 04:21 01/02/25 04:21 01/02/25 04:21 01/02/25 04:21 01/02/25 04:21 01/02/25 04:21 Oxygen Delivery Method Room Air Weight: 74.3 kg Body Mass Index (BMI) 32.0 Intake & Output: Intake and Output for Last 24 Hours 12/31/24 01/01/25 01/02/25 23:59 23:59 23:59 Intake Total 1000 / 1000 1870.83 / 1870.83 Balance 1000 / 1000 1870.83 / 1870.83 Lab / Micro Data 01/02/25 04:02 01/02/25 04:02 Labs: Laboratory Results - last 24 hr 01/01/25 18:57: Phosphorus 2.8, Magnesium 1.7 01/02/25 04:02: WBC 7.8, RBC 3.10 L, Hgb 10.0 L, Hct 28.4 L, MCV 91.6, MCH 32.3 H, MCHC 35.2, RDW Std Deviation 39.4, RDW Coeff of Kyler 11.9, Plt Count 264, MPV 9.5, Sodium 139, Potassium 3.9, Chloride 108, Carbon Dioxide 22.9, Anion Gap 9, BUN 37 H, Creatinine 1.60 H, Estim Creat Clear Calc 26.51 L, Est GFR (MDRD) Non-Af 33 L, BUN/Creatinine Ratio 22.9 H, Glucose 141 H, Calcium 11.4 H, Phosphorus 2.1 L, Albumin 3.6 Physical Exam Const alert and no apparent distress Constitutional Narrative: sitting up in bed. HEENT head/scalp atraumatic and moist oral mucous membranes Resp normal respiratory effort and no retractions Assessment & Plan Assessment/Plan (1) Hypercalcemia: PLAN: Plan Severe hypercalcemia in setting of primary hyperparathyroidism Calcium 14.0 on admit. Improved to 11.4 after IVF and a dose of calcitonin Known history of primary hyperparathyroidism, follows with Dr. Quezada. On Prolia every 6 months and was started on Cinacalcet daily after an ED visit in August where calcium was 13.7 and PTH was more elevated than previous. Recently established with surgery and current plan is for parathyroidectomy with Dr. Burnett on 01/03. I discussed over the phone with Dr. Burnett and he is aware patient has been admitted and surgery may need to be pushed back. Continue home Cinacalcet. Follow up BMP. TC Creatinine 2.15 on admit, baseline around 1.0. Improved to 1.6 Chronic conditions: Hypertension/hyperlipidemia: Patient hypertensive to the 160s to 170s systolic on admit. Holding home lisinopril given TC as above. Will initiate amlodipine 5 mg daily for now and also order IV hydralazine 10 mg every 4 hours as needed for SBP greater than 170. Continue home aspirin and statin. GERD? Continue home PPI. Osteoporosis? No inpatient needs, continue Prolia injections in outpatient setting as instructed by endocrinology. DVT prophylaxis: Heparin subcu CODE STATUS: Full code, verified Charges/Coding Visit Charges Inpatient E&M: 33261 Subs Hosp L2
[2025-01-02 08:08] VITALS: BP 162/66; PULSE 83; RESP 16; TEMP 36.6; O2SAT 95
[2025-01-02] MEDS: Multivitamin (Healthy Eyes) Capsule 1 CAP PO (08:51)
[2025-01-02 10:59] VITALS: BP 158/67; PULSE 66; RESP 17; TEMP 36.8; O2SAT 97
[2025-01-02 12:48] VITALS: BP 174/60; PULSE 70; RESP 16; TEMP 36.7; O2SAT 97
[2025-01-02 12:52] VITALS: PULSE 70
[2025-01-02 13:32] LABS: Anion Gap 10 (5-15); BUN 28 mg/dL (4-19); BUN/Creat Ratio 19.9 RATIO (10-20); Calcium,Total 10.2 mg/dL (7.6-11.0); Carbon Dioxide 20.4 mmol/L (21.0-32.0); Chloride 109 mmol/L (98-108); Estimated Creatinine Clearance 30.29 ml/min (50-250); Glucose 99 mg/dL (70-99); Potassium 3.7 mmol/L (3.3-5.1)
--- NOTE | 2025-01-02 14:10 | PCM.DC.SUM ---
Providers Date of Admission: 01/01/25 Primary Care Physician: Se Bryan MD Reason For Visit: HYPERCALCEMIA Diagnosis Discharge Diagnosis (1) Hypercalcemia: Status: Chronic Code(s): E83.52 - Hypercalcemia Plan Severe hypercalcemia in setting of primary hyperparathyroidism Calcium 14.0 on admit. Improved to 10.2 after IVF and a dose of calcitonin Known history of primary hyperparathyroidism, follows with Dr. Quezada. On Prolia every 6 months and was started on Cinacalcet daily after an ED visit in August where calcium was 13.7 and PTH was more elevated than previous. Recently established with surgery and current plan is for parathyroidectomy with Dr. Burnett on 01/03. I discussed over the phone with Dr. Burnett and he is aware patient has been admitted and surgery has been pushed back. Continue home Cinacalcet. Follow up BMP next week as outpt. TC Creatinine 2.15 on admit, baseline around 1.0. Improved to 1.4 Chronic conditions: Hypertension/hyperlipidemia: Patient hypertensive to the 160s to 170s systolic on admit. Continue amlodipine and hydralaine. GERD? Continue home PPI. Osteoporosis? No inpatient needs, continue Prolia injections in outpatient setting as instructed by endocrinology. CODE STATUS: Full code, verified Medications at Discharge Home Medications omeprazole magnesium 20 mg tablet,delayed release 20 mg PO DAILY acid reflux 05/20/17 aspirin 81 mg chewable tablet 81 mg PO QDAY heart 08/17/17 ferrous sulfate 325 mg (65 mg iron) tablet (FeroSul) 325 mg PO DAILY low iron 10/23/20 latanoprost 0.005 % eye drops 1 ml ophthalmic (eye) QHS retinal 10/23/20 simvastatin 20 mg tablet 20 mg PO QHS low cholestrol 10/23/20 vit C 250 mg-vit E 90 mg-zinc 40 mg-copper 1 [id number] capsule (PreserVision AREDS-2) 1 tab PO BID eye health 08/18/21 denosumab 60 mg/mL subcutaneous syringe (Prolia) 60 mg subcut [id number] bnes #1 mL 10/20/22 cinacalcet 30 mg tablet 30 mg PO QDAY lower parathyroid #30 tabs 10/11/24 amlodipine 5 mg tablet 5 mg PO DAILY #30 tabs 01/02/25 hydralazine 25 mg tablet 25 mg PO TID #90 tabs 01/02/25 Hospital Course Summary of Care Provided Hospital Course: Greater than 30 minutes spent on discharge. Weight / BMI Weight Weight: 74.3 kg Body Mass Index (BMI) 32.0 ABG / Lab / Microbiology Data 01/02/25 04:02 01/02/25 12:53 Laboratory: Laboratory Results - last 24 hr 01/01/25 18:57: Phosphorus 2.8, Magnesium 1.7 01/02/25 04:02: WBC 7.8, RBC 3.10 L, Hgb 10.0 L, Hct 28.4 L, MCV 91.6, MCH 32.3 H, MCHC 35.2, RDW Std Deviation 39.4, RDW Coeff of Kyler 11.9, Plt Count 264, MPV 9.5, Sodium 139, Potassium 3.9, Chloride 108, Carbon Dioxide 22.9, Anion Gap 9, BUN 37 H, Creatinine 1.60 H, Estim Creat Clear Calc 26.51 L, Est GFR (MDRD) Non-Af 33 L, BUN/Creatinine Ratio 22.9 H, Glucose 141 H, Calcium 11.4 H, Phosphorus 2.1 L, Albumin 3.6 01/02/25 12:53: Sodium 139, Potassium 3.7, Chloride 109 H, Carbon Dioxide 20.4 L, Anion Gap 10, BUN 28 H, Creatinine 1.40 H, Estim Creat Clear Calc 30.29 L, Est GFR (MDRD) Non-Af 39 L, BUN/Creatinine Ratio 19.9, Glucose 99, Calcium 10.2 D/C Instructions DC O2, CPAP, BIPAP Needs Home O2 Discharge instructions: No Meaningful Use Info Meaningful Use Meaningful Use Diagnoses (Choose all that apply): None applicable Discharge Plan Admission Admit Date/Time: 01/01/25 18:35 Primary Reason for Your Visit: hypercalcemia Attending Provider: Tyrone Naik Primary Care Provider: Se Bryan Consulting Providers: Scot Sultana Instructions Additional Instructions / Restrictions: Please have blood work (BMP, basic metabolic profile) performed next week to evaluate you calcium level. Contact Dr. Burnett's office for timing of surgery. You calcium has improved with medication (calcitonin) and IV fluids. Please continue your current medication as ordered. You blood pressure has been elevated. I stopped you lisinopril given you renal failure (which is improving) and started you on amlodipine (Norvasc) and hydralazine. Discharge Orders/Prescriptions Prescriptions: New amlodipine 5 mg Tablet 5 mg PO DAILY Qty: 30 0RF hydralazine 25 mg tablet 25 mg PO TID Qty: 90 0RF Continued aspirin 81 mg tablet,chewable 81 mg PO QDAY simvastatin 20 mg tablet 20 mg PO QHS Patient Comments: Take 1 tablet by mouth daily latanoprost 0.005 % drops 1 ml ophthalmic (eye) QHS Patient Comments: instill 1 (ONE) drop into both eyes EVERY NIGHT AT BEDTIME ferrous sulfate [FeroSul] 325 mg (65 mg iron) tablet 325 mg PO DAILY Prolia 60 mg/mL syringe 60 mg SC [id number] Qty: 1 1RF omeprazole magnesium 20 MG tablet,delayed release (DR/EC) 20 mg PO DAILY PreserVision AREDS-2 250-90-40-1 mg Capsule 1 tab PO BID cinacalcet 30 mg tablet 30 mg PO QDAY Qty: 30 3RF Discontinued lisinopril 20 mg tablet 20 mg PO DAILY Patient Comments: Take 1 tablet by mouth daily Referrals / Follow Up: Se Bryan MD [Primary Care Provider, Family Practice] - Within 2 Weeks Je Burnett MD [Med Staff - Active Staff, General Surgery] - Within 2 Weeks Disposition Disposition (needs filled in before D/C Order can be placed): Home, Self Care Charges/Coding Visit Charges Inpatient E&M: 33229 Disch Hosp >30min
--- NOTE | 2025-01-02 15:10 | PHA.DC_ITS ---
Pharmacy DC Med Counseling
--- NOTE | 2025-01-02 15:10 | PHA.DC.COU.R ---
Pharmacy [facility] has performed discharge medication counseling for this patient. The patient was counseled on the following discharge medications and changes in medications for homegoing review. - Amlodipine 5 mg tablet, Hydralazine 25 mg tablet The Reason for Use, instructions for use, and potential side effects were reviewed for all new medications. The patient's questions regarding all of their medications were answered. The patient was able to verbally demonstrate an understanding of their discharge medications. Medications at Discharge Home Medications omeprazole magnesium 20 mg tablet,delayed release 20 mg PO DAILY acid reflux 05/20/17 aspirin 81 mg chewable tablet 81 mg PO QDAY heart 08/17/17 ferrous sulfate 325 mg (65 mg iron) tablet (FeroSul) 325 mg PO DAILY low iron 10/23/20 latanoprost 0.005 % eye drops 1 ml ophthalmic (eye) QHS retinal 10/23/20 simvastatin 20 mg tablet 20 mg PO QHS low cholestrol 10/23/20 vit C 250 mg-vit E 90 mg-zinc 40 mg-copper 1 vi-rbvytp-xmpxus capsule (PreserVision AREDS-2) 1 tab PO BID eye health 08/18/21 denosumab 60 mg/mL subcutaneous syringe (Prolia) 60 mg subcut [id number] bnes #1 mL 10/20/22 cinacalcet 30 mg tablet 30 mg PO QDAY lower parathyroid #30 tabs 10/11/24 amlodipine 5 mg tablet 5 mg PO DAILY #30 tabs 01/02/25 hydralazine 25 mg tablet 25 mg PO TID #90 tabs 01/02/25
== END 2025-01-02 14:55 | disposition home or self-care (01) | DRG 644 ==
LOC: ED 18:40 → MS3 19:08
PROVIDERS: Admitting Provider Hospitalist; Emergency Provider Emergency Medicine; PCP Family Medicine
DX: E21.0 Primary hyperparathyroidism (principal); N17.9 Acute kidney failure, unspecified; I10 Essential (primary) hypertension; K21.9 Gastro-esophageal reflux disease without esophagitis; E78.5 Hyperlipidemia, unspecified; M81.0 Age-related osteoporosis without current pathological fracture; Z79.899 Other long term (current) drug therapy; Z87.891 Personal history of nicotine dependence
CPT/HCPCS: 36415; 80048; 80053; 80069; 83735; 84100; 85027; 93005; 99285; A4216; J0630

== ENCOUNTER → 2025-01-01 | Outpatient (CLI) | payer MEDICARE, SELFPAY ==
[2025-01-01 16:15] LABS: AST(SGOT) 25 U/L (<=31); Alanine Aminotransfer ALT/SGPT 24 U/L (<=34); Albumin, Serum 4.3 g/dL (3.4-4.8); Alkaline Phosphatase 59 U/L (35-104); Anion Gap 11 (5-15); BUN 46 mg/dL (4-19); BUN/Creat Ratio 21.5 RATIO (10-20); Calcium,Total 14.0 mg/dL (7.6-11.0); Carbon Dioxide 29.7 mmol/L (21.0-32.0); Chloride 97 mmol/L (98-108); Globulin 2.9 g/dL (2.2-4.2); Glucose 112 mg/dL (70-99); Potassium 4.1 mmol/L (3.3-5.1)
== END | disposition home or self-care (01) ==
LOC: LAB 13:58
PROVIDERS: PCP Family Medicine; Referring Provider Nurse Practitioner Family; Visit Provider Nurse Practitioner Family
DX: E83.39 Other disorders of phosphorus metabolism (principal); E83.52 Hypercalcemia
CPT/HCPCS: 80053

== ENCOUNTER → 2025-01-06 | Outpatient (CLI) | payer MEDICARE, SELFPAY ==
[2025-01-06 12:56] LABS: Anion Gap 10 (5-15); BUN 14 mg/dL (4-19); BUN/Creat Ratio 12.5 RATIO (10-20); Calcium,Total 10.0 mg/dL (7.6-11.0); Carbon Dioxide 19.8 mmol/L (21.0-32.0); Chloride 107 mmol/L (98-108); Glucose 129 mg/dL (70-99); Potassium 3.7 mmol/L (3.3-5.1)
== END | disposition home or self-care (01) ==
LOC: LAB 11:32
PROVIDERS: PCP Family Medicine; Referring Provider Surgery; Visit Provider Surgery
DX: E21.0 Primary hyperparathyroidism (principal)
CPT/HCPCS: 36415; 80048

== ENCOUNTER → 2025-01-21 | Outpatient (CLI) | payer MEDICARE, SELFPAY ==
--- OUTSIDE RECORDS SUMMARY | 2025-01-21 14:36 | XMS RPT_ITS | CCD ---
Author Organization [facility] Care Team Providers Care Database Programmer Name Role Phone Dr. Jenaro Loo Referring [...] Bryan MD Primary Care Provider [phone] Guicho Quezada MD Referring Provider Dilip VALLE, Dr. Pradhan Emergency Provider Dilip VALLE, Dr. Pradhan Attending Provider King LEONARD, Dr. Lindo Attending Physician Randi VALLE, Se Primary Care Physician Dilip VALLE, Dr. Pradhan Attending Physician [phone] Dilip VALLE, Dr. Pradhan Emergency Department Physician King LEONARD, Dr. Lindo Nurse Practitioner Simon LEGAL BILLING ANALYST-C, Kristie Attending Physician Simon LEGAL BILLING ANALYST-C, Kristie Referring Provider Simon LEGAL BILLING ANALYST-C, Kristie Nurse Practitioner Hortencia VALLE, Dr. Wooten Attending Physician Randi, Chalon Referring Unavailable Randi, Chalon Primary Care Unavailable Damien, Guicho Attending Unavailable Randi, Chalon Referring Unavailable Je Burnett Attending Unavailable Randi, Chalon Primary Care Unavailable Tyrone Naik Attending Unavailable Randi, Chalon Primary Care Unavailable Mosteller, Scot Consulting Unavailable Mosteller, Scot Admitting Unavailable Lorne Cherry Attending Unavailable Randi, Chalon Primary Care Unavailable Damien, Guicho Attending Unavailable Randi, Chalon Primary Care Unavailable Damien, Guicho Referring Unavailable Simon, Kristie Referring Unavailable Simon, Kristie Attending Unavailable Randi, Chalon Primary Care Unavailable Damien, Guicho Consulting Unavailable Randi, Chalon Primary Care Unavailable Damien, Guicho Attending Unavailable Damien, Guicho Referring Unavailable Je Burnett Referring Unavailable Je Burnett Attending Unavailable Randi, Chalon Primary Care Unavailable Simon, Kristie Consulting Unavailable Randi, Chalon Primary Care Unavailable Damien, Guicho Attending Unavailable Damien, Guicho Referring Unavailable Randi, Chalon Referring Unavailable Randi, Chalon Attending Unavailable Randi, Chalon Primary Care Unavailable Simon, Kristie Referring Unavailable Simon, Kristie Attending Unavailable Randi, Chalon Primary Care Unavailable Randi, Chalon Primary Care Unavailable Mosteller, Scot Admitting Unavailable Mosteller, Scot Attending Unavailable Mosteller, Scot Consulting Unavailable Simon, Kristie Referring Unavailable Simon, Kristie Attending Unavailable Randi, Chalon Primary Care Unavailable Randi, Chalon Referring Unavailable Randi, Chalon Primary Care Unavailable Randi, Paigeon Attending Unavailable Je Burnett Referring Unavailable Hortencia, Je Attending Unavailable Randi, Chalon Primary Care Unavailable Randi, Chalon Primary Care Unavailable Guicho Quezada Attending Unavailable DamienGuicho Referring Unavailable Tyrone Naik Attending Unavailable Tyrone Naik Consulting Unavailable Randi, Paigeon Referring Unavailable Randi, Chalon Primary Care Unavailable DamienGuicho Attending Unavailable Randi, Chalon Referring Unavailable Randi, Chalon Primary Care Unavailable Guicho Quezada Attending Unavailable Medications Current Medications Medication Drug [...] 1 tablet by mouth once daily Vit C,A-Wy-Auegs-Lutein-Zeax an (Preservision Areds-2) 250-90-40-1 mg Capsule (20 sources) Start: 08-18-2021 take 2 capsules by mouth twice daily Start: 08-18-2021 take 2 capsules by m outh twice daily Vit C,W-Rd-Gaifu-Lutein-Zeaxan (Preservision Areds-2) 250-90-40-1 mg Capsule Active 1 {tbl} PO TWICE A DAY August 18, 2021 12:00am Start: 08-18-2021 Vit C,E-Zn-Internet Webmaster qo-Xcbpks-Gczkor (Preservision Areds-2) 250-90-40-1 mg Capsule Active 1 TABLET PO TWICE A DAY August 17, 2021 11:00pm Start: 08-18-2021 Vit C,E-Zn-Internet Webmaster gq-Nzmpqu-Bagkqu (Preservision Areds-2) 250-90-40-1 mg Capsule Active 1 TABLET PO TWICE A DAY August 18, 2021 12:00am Completed/Discontinued Medications Medication Drug Class(es) Dates Sig (Normalized) Sig (Original) [id number] 60 actuat albuterol 0.09 mg/actuat metered dose [...] 2 PUFF INHALATION EVERY 4 HOURS NEEDED May 20, 2017 12:00am August 17, 2017 [...] tablet Discontinued 40 mg PO DAILY 6 0 May 20, 2017 12:00am August 17, [...] current pathological fracture] Onset: 5 Chronic Other endocrine disorders (20 sources) Primary hyperparathyroidism; [...] Chronic Other nutritional; endocrine; and metabolic disorders (2 sources) Hypercalcemia; Translations: [Hypercalcemia] Onset: 5 Chronic Other nutritional; endocrine; and metabolic disorders (1 source) Other disorders of phosphorus metabolism; Translations: [Other disorders of phosphorus metabolism] Onset: 5 Chronic Other screening for suspected [...] Test Name Value Interpretation Reference Range Facility Basic Metabolic Profile (BMP )on 01-06-2025 BUN/CRE 12.5 RATIO Normal 12-16 [facility] Comment on above: Performed By: #### L 500.6168 #### [facility] [address] [place], [place], [address] Calcium [Mass/Vol] 10.0 mg/dL Normal 7.6-11.0 [facility] Comment on above: Performed By: #### L 500.2500 #### [facility] [address] [place], [address] Chloride [Moles/Vol] 107 mmol/L Normal 98-108 [facility] Comment on above: Performed By: #### L 500.2500 #### [facility] [address] [place], [address] CO2 [Moles/Vol] 19.8 mmol/L Low 21.0-32.0 [facility] Comment on above: Performed By: #### L 500.2500 #### [facility] [address] [place], [address] Creatinine [Mass/Vol] 1.13 mg/dL Normal 0.70-1.20 [facility] Comment on above: Performed By: #### L 500.2500 #### [facility] [address] [place], [address] GAP 10 Normal 5-15 [facility] Comment on above: Performed By: #### L 500.2500 #### [facility] [address] [place], [address] GFR/1.73 sq M.predicted among non-blacks MDRD (S/P/Bld) [Vol rate/Area] 50 mL/min/{1.73_m2} Low >60 [facility] Comment on above: Result Comment: mL/m in/1.73m2 CKD-EPI Creatinine Equation (2020) Performed By: #### L 500.2500 #### [facility] [address] [place], [address] Glucose [Mass/Vol] 129 mg/dL High 70-99 [facility] Comment on above: Performed By: #### L 500.2500 #### [facility] [address] [place], [address] Potassium [Moles/Vol] 3.7 mmol/L Normal 3.3-5.1 [facility] Comment on above: Performed By: #### L 500.2500 #### [facility] [address] [place], [address] Sodium [Moles/Vol] 136 mmol/L Normal 133-145 [facility] Comment on above: Performed By: #### L 500.2500 #### [facility] [address] [place], [address] Urea nitrogen [Mass/Vol] 14 mg/dL Normal 4-19 [facility] Comment on above: Performed By: #### L 500.2500 #### [facility] [address] [place], [address] Basic Metabolic Profile (BMP )on 01-02-2025 BUN/CRE 19.9 RATIO Normal 10-20 [facility] Comment on above: Performed By: #### L 500.2500 #### [facility] [address] [place], [address] Calcium [Mass/Vol] 10.2 mg/dL Normal 7.6-11.0 [facility] Comment on above: Performed By: #### L 500.2500 #### [facility] [address] [place], [address] Chloride [Moles/Vol] 109 mmol/L High 98-108 [facility] Comment on above: Performed By: #### L 500.2500 #### [facility] [address] [place], [address] CO2 [Moles/Vol] 20.4 mmol/L Low 21.0-32.0 [facility] Comment on above: Performed By: #### L 500.2500 #### [facility] [address] [place], [address] Creatinine [Mass/Vol] 1.40 mg/dL High 0.70-1.20 [facility] Comment on above: Performed By: #### L 500.2500 #### [facility] [address] [place], [address] ECRCL 30.29 ml/min Low 50-250 [facility] Comment on above: Performed By: #### L 500.2500 #### [facility] [address] [place], [address] GAP 10 Normal 5-15 [facility] Comment on above: Performed By: #### L 500.2500 #### [facility] [address] [place], [address] GFR/1.73 sq M.predicted among non-blacks MDRD (S/P/Bld) [Vol rate/Area] 39 mL/min/{1.73_m2} Low >60 [facility] Comment on above: Result Comment: mL/m in/1.73m2 CKD-EPI Creatinine Equation (2020) Performed By: #### L 500.2500 #### [facility] [address] [place], [address] Glucose [Mass/Vol] 99 mg/dL Normal 70-99 [facility] Comment on above: Performed By: #### L 500.2500 #### [facility] [address] [place], [address] Potassium [Moles/Vol] 3.7 mmol/L Normal 3.3-5.1 [facility] Comment on above: Performed By: #### L 500.2500 #### [facility] [address] [place], [address] Sodium [Moles/Vol] 139 mmol/L Normal 133-145 [facility] Comment on above: Performed By: #### L 500.2500 #### [facility] [address] [place], [address] Urea nitrogen [Mass/Vol] 28 mg/dL High 4-19 [facility] Comment on above: Performed By: #### L 500.2500 #### [facility] [address] [place], [address] CBC-Complete Blood Cnt No Di ffon 01-02-2025 Erythrocyte distribution width (RBC) [Ratio] 11.9 % Normal 11.6-14.6 [facility] Comment on above: Performed By: #### L 500.4050, L100.0100 #### [facility] [address] [place], [address] Hematocrit (Bld) [Volume fraction] 28.4 % Low 37-47 [facility] Comment on above: Performed By: #### L 500.4050, L100.0100 #### [facility] [address] [place], [address] Hemoglobin (Bld) [Mass/Vol] 10.0 g/dL Low 12.0-15.0 [facility] Comment on above: Performed By: #### L 500.4050, L100.0100 #### [facility] [address] [place], [address] MCH (RBC) [Entitic mass] 32.3 pg High 27.0-32.0 [facility] Comment on above: Performed By: #### L 500.4050, L100.0100 #### [facility] [address] [place], [address] MCHC (RBC) [Mass/Vol] 35.2 g/dL Normal 32-36 [facility] Comment on above: Performed By: #### L 500.4050, L100.0100 #### [facility] [address] [place], [address] MCV (RBC) [Entitic vol] 91.6 fL Normal 81-99 [facility] Comment on above: Performed By: #### L 500.4050, L100.0100 #### [facility] [address] [place], [address] Platelet mean volume (Bld) [Entitic vol] 9.5 fL Normal 6.2-12.0 [facility] Comment on above: Performed By: #### L 500.4050, L100.0100 #### [facility] [address] [place], [address] Platelets (Bld) [#/Vol] 264 10*3/uL Normal 150-450 [facility] Comment on above: Performed By: #### L 500.4050, L100.0100 #### [facility] [address] [place], [address] RBC (Bld) [#/Vol] 3.10 10*6/uL Low 4.2-5.4 [facility] Comment on above: Performed By: #### L 500.4050, L100.0100 #### [facility] [address] [place], [address] RDW SD 39.4 fl Normal 35.1-43.9 [facility] Comment on above: Performed By: #### L 500.4050, L100.0100 #### [facility] [address] [place], [address] WBC (Bld) [#/Vol] 7.8 10*3/uL Normal 4.4-11.0 [facility] Comment on above: Performed By: #### L 500.4050, L100.0100 #### [facility] [address] [place], [address] Renal Profileon 01-02-2025 Albumin [Mass/Vol] 3.6 g/dL Normal 3.4-4.8 [facility] Comment on above: Performed By: #### L 500.4050, L100.0100 #### [facility] [address] [place], [address] BUN/CRE 22.9 RATIO High 10-20 [facility] Comment on above: Performed By: #### L 500.4050, L100.0100 #### [facility] [address] [place], [address] Calcium [Mass/Vol] 11.4 mg/dL High 7.6-11.0 [facility] Comment on above: Performed By: #### L 500.4050, L100.0100 #### [facility] [address] [place], [address] Chloride [Moles/Vol] 108 mmol/L Normal 98-108 [facility] Comment on above: Performed By: #### L 500.4050, L100.0100 #### [facility] [address] [place], [address] CO2 [Moles/Vol] 22.9 mmol/L Normal 21.0-32.0 [facility] Comment on above: Performed By: #### L 500.4050, L100.0100 #### [facility] [address] [place], [address] Creatinine [Mass/Vol] 1.60 mg/dL High 0.70-1.20 [facility] Comment on above: Performed By: #### L 500.4050, L100.0100 #### [facility] [address] [place], [address] ECRCL 26.51 ml/min Low 50-250 [facility] Comment on above: Performed By: #### L 500.4050, L100.0100 #### [facility] [address] [place], [address] GAP 9 Normal 5-15 [facility] Comment on above: Performed By: #### L 500.4050, L100.0100 #### [facility] [address] [place], [address] GFR/1.73 sq M.predicted among non-blacks MDRD (S/P/Bld) [Vol rate/Area] 33 mL/min/{1.73_m2} Low >60 [facility] Comment on above: Result Comment: mL/m in/1.73m2 CKD-EPI Creatinine Equation (2020) Performed By: #### L 500.4050, L100.0100 #### [facility] [address] [place], [address] Glucose [Mass/Vol] 141 mg/dL High 70-99 [facility] Comment on above: Performed By: #### L 500.4050, L100.0100 #### [facility] [address] [place], [address] Phosphate [Mass/Vol] 2.1 mg/dL Low 2.7-4.5 [facility] Comment on above: Performed By: #### L 500.4050, L100.0100 #### [facility] [address] [place], [address] Potassium [Moles/Vol] 3.9 mmol/L Normal 3.3-5.1 [facility] Comment on above: Performed By: #### L 500.4050, L100.0100 #### [facility] [address] [place], [address] Sodium [Moles/Vol] 139 mmol/L Normal 133-145 [facility] Comment on above: Performed By: #### L 500.4050, L100.0100 #### [facility] [address] [place], [address] Urea nitrogen [Mass/Vol] 37 mg/dL High 4-19 [facility] Comment on above: Performed By: #### L 500.4050, L100.0100 #### [facility] [address] [place], [address] Comprehensive Metabolic Prof ilon 01-01-2025 Albumin [Mass/Vol] 4.3 g/dL Normal 3.4-4.8 [facility] Comment on above: Order Comment: PTH-D UPLICATE FOR HORTENCIA MONTES Performed By: #### L 500.4050, L100.0100 #### [facility] [address] [place], [address] Albumin/Globulin [Mass ratio] 1.5 {ratio} Normal 0.9-2.4 [facility] Comment on above: Order Comment: PTH-D UPLICATE FOR HORTENCIA MONTES Performed By: #### L 500.4050, L100.0100 #### [facility] [address] [place], [address] ALK PHOS 59 U/L Normal 35-104 [facility] Comment on above: Order Comment: PTH-D UPLICATE FOR HORTENCIA MONTES Performed By: #### L 500.4050, L100.0100 #### [facility] [address] [place], [address] ALT [Catalytic activity/Vol] 24 U/L Normal <=34 [facility] Comment on above: Order Comment: PTH-D UPLICATE FOR HORTENCIA MONTES Performed By: #### L 500.4050, L100.0100 #### [facility] [address] [place], [address] AST [Catalytic activity/Vol] 25 U/L Normal <=31 [facility] Comment on above: Order Comment: PTH-D UPLICATE FOR HORTENCIA MONTES Performed By: #### L 500.4050, L100.0100 #### [facility] [address] [place], [address] Bilirubin [Mass/Vol] 0.29 mg/dL Normal 0.00-1.30 [facility] Comment on above: Order Comment: PTH-D UPLICATE FOR HORTENCIA MONTES Performed By: #### L 500.4050, L100.0100 #### [facility] [address] [place], [address] BUN/CRE 21.5 RATIO High 10-20 [facility] Comment on above: Order Comment: PTH-D UPLICATE FOR HORTENCIA MONTES Performed By: #### L 500.4050, L100.0100 #### [facility] [address] [place], [address] Calcium [Mass/Vol] 14.0 mg/dL Invalid Interpretation Code 7.6-11.0 [facility] Comment on above: Order Comment: PTH-D UPLICATE FOR HORTENCIA MONTES Result Comment: Crit ical Result(s) Called at: 1615 01/01/25 by:??ROSEMARIE SON Results read back by same. Performed By: #### L 500.4050, L100.0100 #### [facility] [address] [place], [address] Chloride [Moles/Vol] 97 mmol/L Low 98-108 [facility] Comment on above: Order Comment: PTH-D UPLICATE FOR HORTENCIA MONTES Performed By: #### L 500.4050, L100.0100 #### [facility] [address] [place], [address] CO2 [Moles/Vol] 29.7 mmol/L Normal 21.0-32.0 [facility] Comment on above: Order Comment: PTH-D UPLICATE FOR HORTENCIA MONTES Performed By: #### L 500.4050, L100.0100 #### [facility] [address] [place], [address] Creatinine [Mass/Vol] 2.15 mg/dL High 0.70-1.20 [facility] Comment on above: Order Comment: PTH-D UPLICATE FOR HORTENCIA MONTES Performed By: #### L 500.4050, L100.0100 #### [facility] [address] [place], [address] GAP 11 Normal 5-15 [facility] Comment on above: Order Comment: PTH-D UPLICATE FOR HORTENCIA MONTES Performed By: #### L 500.4050, L100.0100 #### [facility] [address] [place], [address] GFR/1.73 sq M.predicted among non-blacks MDRD (S/P/Bld) [Vol rate/Area] 23 mL/min/{1.73_m2} Low >60 [facility] Comment on above: Order Comment: PTH-D UPLICATE FOR HORTENCIA MONTES Result Comment: mL/m in/1.73m2 CKD-EPI Creatinine Equation (2020) Performed By: #### L 500.4050, L100.0100 #### [facility] [address] [place], [address] Globulin (S) [Mass/Vol] 2.9 g/dL Normal 2.2-4.2 [facility] Comment on above: Order Comment: PTH-D UPLICATE FOR HORTENCIA MONTES Performed By: #### L 500.4050, L100.0100 #### [facility] [address] [place], [address] Glucose [Mass/Vol] 112 mg/dL High 70-99 [facility] Comment on above: Order Comment: PTH-D UPLICATE FOR HORTENCIA MONTES Performed By: #### L 500.4050, L100.0100 #### [facility] [address] [place], [address] Potassium [Moles/Vol] 4.1 mmol/L Normal 3.3-5.1 [facility] Comment on above: Order Comment: PTH-D UPLICATE FOR HORTENCIA MONTES Performed By: #### L 500.4050, L100.0100 #### [facility] [address] [place], [address] Sodium [Moles/Vol] 138 mmol/L Normal 133-145 [facility] Comment on above: Order Comment: PTH-D UPLICATE FOR HORTENCIA MONTES Performed By: #### L 500.4050, L100.0100 #### [facility] [address] [place], [address] T PROT 7.2 g/dL Normal 5.9-8.4 [facility] Comment on above: Order Comment: PTH-D UPLICATE FOR HORTENCIA MONTES Performed By: #### L 500.4050, L100.0100 #### [facility] [address] [place], [address] Urea nitrogen [Mass/Vol] 46 mg/dL High 4-19 [facility] Comment on above: Order Comment: PTH-D UPLICATE FOR HORTENCIA MONTES Performed By: #### L 500.4050, L100.0100 #### [facility] [address] [place], [address] Emergency Department Summary on 01-01-2025 Emergency Department Summary [facility] Medical Records Department [address] [place] [address] Emergency Department Summary 01/01/25 MR#: [id number] Acct: [id number] Name: YAJAIRA BUNN Rep #: [id number] : 1945 79 From: Lorne Cherry MD PCP: Dr. Se Bryan MD Status:ADM IN Location: [address] History of Present Illness Chief Complaint: Abn Labs Detail of Chief Complaint: Elevated calcium Informant: patient and spouse/S.O. Onset/Context/Timing Onset: Weeks and - (Elevated since last month) Context: Sudden Onset Timing: Continuous Quality: Increased thirst, increased urination, weight loss, fatigue Location: Endocrine, diagnosed with primary hyperparathyroidism Current Severity: Moderate Maximum Severity: Moderate Worsened by: Primary hyperparathyroidism Relieved by: Nothing Associated Symptoms Associated Symptoms: Polydipsia, polyuria, Narrative Narrative: patient is a 79-year-old woman. She was seen August of this year by me and diagnosed with hypercalcemia. She was symptomatic and admitted at that time. She has since seen Dr. Quezada. She was diagnosed with primary hyperparathyroidism. She has seen Dr. Burnett. She is scheduled for surgery on January 03. She had blood work done by her primary care physician. Her calcium is 14. She does have symptoms of hypercalcemia i.e. polyuria, polydipsia, fatigue and decreased appetite. She denies headache, visual, ocular or auditory symptoms. She denies cardiac respiratory symptoms. She denies abdominal pain, nausea, vomiting or diarrhea. She denies any urologic symptoms other than the polyuria. She attributes this to drinking more fluids because she is thirsty. Prior similar symptoms: Yes Recent Illness/Hospitalizatio n: No [facility] Medical History Wears hearing aid Wears contact lenses Post-menopausal Alcohol use Thyroid disease Low iron High cholesterol Restless legs Fainted Gastric reflux Shortness of breath on exertion Former smoker History of pain when walking History of edema History of echocardiogram Vitamin D deficiency Abnormal mammogram of right breast Heart murmur Arthritis HTN (hypertension) Home Medications ???Medication ???Instructions ???Recorded ???Last Taken ???Type omeprazole magnesium 20 mg 20 mg PO DAILY acid reflux 8 Unknown History tablet,delayed release aspirin 81 mg chewable tablet 81 mg PO QDAY heart 08/17/17 Unkno wn History ferrous sulfate 325 mg (65 mg 325 mg PO DAILY low iron 10/23/20 Unknown History iron) tablet (FeroSul) latanoprost 0.005 % eye drops 1 ml ophthalmic (eye) QHS retinal 10/23/20 Unknown History lisinopril 20 mg tablet 20 mg PO DAILY bp 10/23/20 Unknown History simvastatin 20 mg tablet 20 mg PO QHS low cholestrol Unknown History vit C 250 mg-vit E 90 mg-zinc 40 1 tab PO BID eye health 08/18/21 U nknown History mg-copper 1 ma-pkgczh-sewztl capsule (PreserVision AREDS-2) denosumab 60 mg/mL subcutaneous 60 mg subcut [id number] bnes #1 mL 0 10/20/22 Unknown Rx syringe (Prolia) cinacalcet 30 mg tablet 30 mg PO QDAY lower parathyroid Unknown Rx #30 tabs Allergy/AdvReac Type Severity Reaction Status Date / Time No Known Allergies Allergy Verified 01/01/25 16:43 Family History Grandmother Breast cancer Surgical History History of incision and drainage History of carpal tunnel surgery of right wrist Hx of total hip arthroplasty H/O colonoscopy History of hip surgery Social History household members: spouse Smoking Status: Former smoker alcohol intake: current alcohol intake frequency: holidays/special occasions only ROS ROS ED Constitutional Constitutional ED: Denies chills, fever(s) or subjective Eyes Eyes: Denies blurry vision or change in vision ENT ENT ED: Denies ear pain, rhinorrhea or sore throat Cardiovascular Cardiovascular: Denies chest pain or palpitations Respiratory/Chest Respiratory/Chest: Denies cough, dyspnea or dyspnea on exertion Gastrointestinal Gastrointestinal: Denies abdominal pain, nausea or vomiting Genitourinary Genitourinary ED: Denies dysuria, hematuria or urinary frequency Musculoskeletal Musculoskeletal: Denies arthralgias, myalgias or neck pain Integumentary Denies rash Neurologic Neurologic: Reports weakness; Denies headache(s) or paresthesias Psychiatric Psychiatric: Denies anxiety or depression Endocrine Endocrinology: Denies cold intolerance or heat intolerance Hematologic/Lymphatic Hematologic/Lymphatic: Reports systems reviewed and no addt'l complaints, except as documented EXAM Physical Exam C (more content not included)... Normal [facility] H AND P Exam - [place] 01-01-2025 H&P Exam - Hospitalist [facility] Medical Records Department [address] [place] [address] H P Exam - Hospitalist 01/01/25 1835 MR#: [id number] Acct: [id number] Name: YAJAIRA BUNN Rep #: [id number] : 1945 79 From: Scot Sultana DO PCP: Dr. Se Bryan MD Status:ADM IN Location: [facility] GE396-3 HPI - General General Date of Admission: 01/01/25 Date of Service: 01/01/25 Chief Complaint: Severe hypercalcemia HPI Narrative YAJAIRA BUNN, is a 79 F who presented to [facility] ED on 01/01/2025 with severe hypercalcemia. Medical history significant for primary hyperparathyroidism, osteoporosis, GERD, hypertension and hyperlipidemia. She follows with Dr. Quezada and recently established with surgery here. She is currently on the schedule for parathyroidectomy with Dr. Burnett on 01/03. She had outpatient labs done today that showed a calcium of 14.0 as well as a creatinine of 2.15 (baseline around 1.0) so she was instructed by Dr. Quezada's office to come to the ED for further evaluation. In the ED she was hypertensive to the 160s to 170 systolic, was otherwise in normal sinus rhythm and stable on room air at rest. She was alert and oriented x 3. She was started on IV fluids and hospitalist was contacted for admission. I saw the patient at bedside in the ED, was present. Patient was sitting back comfortably in bed, conversing normally, in no acute distress. She was answering questions appropriately for me. She does report other hypercalcemia symptoms including polyuria, polydipsia, fatigue and decreased appetite over the past several days. Otherwise no acute concerns currently. Will be admitted for further management. [facility] Medical History Wears hearing aid Wears contact lenses Post-menopausal Alcohol use Thyroid disease Low iron High cholesterol Restless legs Fainted Gastric reflux Shortness of breath on exertion Former smoker History of pain when walking History of edema History of echocardiogram Vitamin D deficiency Abnormal mammogram of right breast Heart murmur Arthritis HTN (hypertension) Home Medications ???Medication ???Instructions ???Recorded ???Last Taken ???Type omeprazole magnesium 20 mg 20 mg PO DAILY acid reflux 8 Unknown History tablet,delayed release aspirin 81 mg chewable tablet 81 mg PO QDAY heart 08/17/17 Unkno wn History ferrous sulfate 325 mg (65 mg 325 mg PO DAILY low iron 10/23/20 Unknown History iron) tablet (FeroSul) latanoprost 0.005 % eye drops 1 ml ophthalmic (eye) QHS retinal 10/23/20 Unknown History lisinopril 20 mg tablet 20 mg PO DAILY bp 10/23/20 Unknown History simvastatin 20 mg tablet 20 mg PO QHS low cholestrol Unknown History vit C 250 mg-vit E 90 mg-zinc 40 1 tab PO BID eye health 08/18/21 U nknown History mg-copper 1 yy-fuvzuq-hjlwmh capsule (PreserVision AREDS-2) denosumab 60 mg/mL subcutaneous 60 mg subcut [id number] bnes #1 mL 0 10/20/22 Unknown Rx syringe (Prolia) cinacalcet 30 mg tablet 30 mg PO QDAY lower parathyroid Unknown Rx #30 tabs Allergy/AdvReac Type Severity Reaction Status Date / Time No Known Allergies Allergy Verified 01/01/25 16:43 Family History Grandmother Breast cancer Surgical History History of incision and drainage History of carpal tunnel surgery of right wrist Hx of total hip arthroplasty H/O colonoscopy History of hip surgery Social History household members: spouse Smoking Status: Former smoker alcohol intake: current alcohol intake frequency: holidays/special occasions only ROS Constitutional Constitutional: Reports fatigue; Denies chills, fever(s) or weakness Cardiovascular Cardiovascular: Denies chest pain Respiratory/Chest Respiratory/Chest: Denies shortness of breath at rest Gastrointestinal Gastrointestinal: Reports constipation and nausea; Denies abdominal pain, diarrhea or vomiting Genitourinary Genitourinary: Denies dysuria Musculoskeletal Musculoskeletal: Denies arthralgias or myalgias Neurologic Neurologic: Denies dizziness, focal weakness, headache(s), numbness or tingling Endocrine Endocrinology: Reports polydipsia and polyuria Vital Signs Vital Signs Vital Signs: 01/01/25 16:43 01/01/25 17:01 Temperature 97 F L Temperature Source Temporal Pulse Rate 93 Respiratory Rate 18 Respiratory Effort Normal Non-Labored Respiratory Pattern Normal Blood Pressure 185/78 H Blood Pressure Mean 113 Pulse Ox 96 Oxygen Delivery Method Room Air Weight Weight: 74.6 kg Body Mass Index (BMI) 32.1 Physica (more content not included)... Normal [facility] Magnesiumon 01-01-2025 Magnesium [Mass/Vol] 1.7 mg/dL Normal 1.5-2.2 [facility] Comment on above: Order Comment: Comme nts: ok to add on Performed By: #### L 500.4050, L100.0100 #### [facility] [address] [place], [address] PTHINon 01-01-2025 PTH 279 pg/mL High 11-61 [facility] Comment on above: Order Comment: PTH-D UPLICATE FOR HORTENCIA MONTES Performed By: #### L 500.4050, L100.0100 #### [facility] [address] [place], [address] Phosphoruson 01-01-2025 Phosphate [Mass/Vol] 2.8 mg/dL Normal 2.7-4.5 [facility] Comment on above: Order Comment: Comme nts: ok to add on Performed By: #### L 500.4050, L100.0100 #### [facility] [address] [place], [address] Breast Limited Unilateralon 12-16-2024 Breast Limited Unilateral [facility] Imaging Services [address] [place] [address] Breast Limited Unilateral MR#: [id number] Acct: [id number] Name: YAJAIRA BUNN Rep #: [id number] : 1945 F 79 From: Sheela Quevedo PCP: Dr. Se Bryan MD Status: REG CLI Study: Breast Limited Unilateral Date of Exam: Exam# [id number] Ordering Dr: Se Bryan MD PROCEDURE: BREAST LIMITED UNILATERAL N/A REASON FOR EXAM: F, Age 79 y/o , ABN MAMM. Inconclusive mammogram shows a left breast masslike density. Evaluate. COMPARISON: Mammogram dated 12/16/2024, 12/11/2024 and 12/07/2023. TECHNIQUE: Procedure Code: USBRSTLIMIT Modality: US Procedure: BREAST LIMITED UNILATERAL FINDINGS: There is a benign-appearing intramammary lymph node seen in the left breast at the 1 o'clock, 10 cm from the nipple position measuring 1.8 x 0.7 x 0.7 cm. This has a fatty hilum and the cortex is not abnormally thickened. It does not appear to correlate to the density seen on the mammogram however no other solid or cystic masses are seen in the left breast to correlate to the density seen on the mammogram. The technologist scanned the breast over 30 minutes. The density seen on the mammogram appears to represent a probable ridge of fibroglandular tissue on the ultrasound images submitted for review. Short-term six-month follow-up mammogram should be performed to document stability. US/Breast Limited Unilateral IMPRESSION: There is a benign-appearing intramammary lymph node seen in the left breast at the 1 o'clock, 10 cm from the nipple position measuring 1.8 x 0.7 x 0.7 cm. This has a fatty hilum and the cortex is not abnormally thickened. It does not appear to correlate to the density seen on the mammogram however no other solid or cystic masses are seen in the left breast to correlate to the density seen on the mammogram. The technologist scanned the breast over 30 minutes. The density seen on the mammogram appears to represent a probable ridge of fibroglandular tissue on the ultrasound images submitted for review. Short-term six-month follow-up mammogram should be performed to document stability. BI-RADS 3: PROBABLY BENIGN. RECOMMENDATION: 6 Month Follow-up Reading Location: [id number] CC: Dr. Se Bryan MD Ballistics Expert: Signed Normal [facility] DIAG MAMM W/CAD, UNILATon DIAG MAMM W/CAD, UNILAT [facility] Imaging Services [address] [place] [address] DIAG MAMM W/CAD, UNILAT MR#: [id number] Acct: [id number] Name: YAJAIRA BUNN Rep #: [id number] : 1945 F 79 From: Sheela Quevedo PCP: Dr. Se Bryan MD Status: REG CLI Study: DIAG MAMM W/CAD, UNILAT Date of Exam: 12/16/24 Exam# [id number] Ordering Dr: Se Bryan MD EXAM: DIAG MAMM W/CAD, UNILAT N/A CLINICAL HISTORY: F, Age 79 y/o , ABN MAMM. Inconclusive screening mammogram showed a nodular density in the superior outer aspect of the left breast. Evaluate. TECHNIQUE: Procedure Code: BIDMWCADU Modality: MG Procedure: DIAG MAMM W/CAD, UNILAT. COMPARISON: Prior exam(s) dated 12/11/2024 and 12/07/2023. FINDINGS: TISSUE DENSITY: There are scattered areas of fibroglandular density. Unilateral Right Breast Mammographic Findings: There is a focal nodular density in the lateral, middle 3rd aspect of the left breast which does persist on the spot compression CC view. It is not as well appreciated on the LM view or spot compression MLO view. On the omega images it appears to be located laterally somewhat near the 3 o'clock position. Further workup with ultrasound will be performed for further evaluation. BI/DIAG MAMM W/CAD, UNILAT IMPRESSION: There is a focal nodular density in the lateral, middle 3rd aspect of the left breast which does persist on the spot compression CC view. It is not as well appreciated on the LM view or spot compression MLO view. On the omega images it appears to be located laterally somewhat near the 3 o'clock position. Further workup with ultrasound will be performed for further evaluation. OVERALL FINAL ASSESSMENT BI-RADS 0: INCOMPLETE - NEED ADDITIONAL IMAGING EVALUATION. RECOMMENDATION: Ultrasound Recommended Additional Recommendation none A letter with findings and recommendations will be mailed to the patient. Reading Location: [id number] CC: Dr. Se Bryan MD Ballistics Expert: Signed Normal [facility] Dexa Bone Density Studyon Dexa Bone Density Study [facility] Imaging Services [address] [place] [address] Dexa Bone Density Study MR#: [id number] Acct: [id number] Name: YAJAIRA BUNN Rep #: [id number] : 1945 F 79 From: Rodo lua MD PCP: Dr. Se Bryan MD Status: REG CLI Study: Dexa Bone Density Study Date of Exam: 12/11/24 Exam# [id number] Ordering Dr: Se Bryan MD PROCEDURE: DEXA [...] Recommend follow-up as clinically warranted. Reading Location: [place] [address] CC: Dr. Se Bryan MD Ballistics Expert: Signed Normal [facility] SCRN MAMM (CAD)W/OMEGA BILATo n 12-11-2024 SCRN MAMM (CAD)W/OMEGA BILAT [facility] Imaging Services [address] [place], [place] [id number] SCRN MAMM (CAD)W/OMEGA BILAT MR#: [id number] Acct: [id number] Name: YAJAIRA BUNN Rep #: [id number] : 1945 F 79 From: Rodo lua MD PCP: Dr. Se Bryan MD Status: REG CLI Study: SCRN MAMM (CAD)W/OMEGA BILAT Date of Exam: 11/27 07/21 Exam# [id number] Ordering Dr: Se Bryan MD EXAM: SCRN [...] aspect of the left breast. BI/SCRN MAMM (CAD)W/OEMGA BILAT IMPRESSION: Questionable 7.5 mm nodular density in the upper slightly lateral aspect of the left breast as described best seen on the craniocaudad view. OVERALL FINAL ASSESSMENT BI-RADS 0: INCOMPLETE - NEED ADDITIONAL IMAGING EVALUATION. RECOMMENDATION: Additional Views obtained/call backs Additional Recommendation none A letter with findings and recommendations will be mailed to the patient. Reading Location: [place] [address] CC: Dr. Se Bryan MD Ballistics Expert: Signed Normal [facility] Basic Metabolic Profile (BMP )on 12-03-2024 BUN/CRE 17.9 RATIO Normal 10-20 [facility] Comment on above: Performed By: #### L 500.2500 #### [facility] [address] [place], [address] Calcium [Mass/Vol] 10.4 mg/dL Normal 7.6-11.0 [facility] Comment on above: Performed By: #### L 500.2500 #### [facility] [address] [place], [address] Chloride [Moles/Vol] 106 mmol/L Normal 98-108 [facility] Comment on above: Performed By: #### L 500.2500 #### [facility] [address] [place], [address] CO2 [Moles/Vol] 21.3 mmol/L Normal 21.0-32.0 [facility] Comment on above: Performed By: #### L 500.2500 #### [facility] [address] [place], [address] Creatinine [Mass/Vol] 1.05 mg/dL Normal 0.70-1.20 [facility] Comment on above: Performed By: #### L 500.2500 #### [facility] [address] [place], [address] GAP 10 Normal 5-15 [facility] Comment on above: Performed By: #### L 500.2500 #### [facility] [address] [place], [address] GFR/1.73 sq M.predicted among non-blacks MDRD (S/P/Bld) [Vol rate/Area] 55 mL/min/{1.73_m2} Low >60 [facility] Comment on above: Result Comment: mL/m in/1.73m2 CKD-EPI Creatinine Equation (2020) Performed By: #### L 500.2500 #### [facility] [address] [place], [address] Glucose [Mass/Vol] 88 mg/dL Normal 70-99 [facility] Comment on above: Performed By: #### L 500.2500 #### [facility] [address] [place], [place], [address] Potassium [Moles/Vol] 4.5 mmol/L Normal 3.3-5.1 [facility] Comment on above: Performed By: #### L 500.2500 #### [facility] [address] [place], [place], [address] [phone] Sodium [Moles/Vol] 137 mmol/L Normal 133-145 [facility] Comment on above: Performed By: #### L 500.2500 #### [facility] [address] [place], [place], [address] Urea nitrogen [Mass/Vol] 19 mg/dL Normal 4-19 [facility] Comment on above: Performed By: #### L 500.2500 #### [facility] [address] [place], [place], [address] Surgery Visit Reporton 11-20 Surgery Visit Report [facility] [address] [place], [place] [address] OFFICE VISIT Date of Service: 11/20/24 MR#: [id number] Acct: [id number] Name: YAJAIRA BUNN Rep #: [id number] : 1945 Provider: Dr. Je bar MD Age/Sex: 79/F Location: [facility] Status: Signed Intake Vital Signs 10/24/24 [...] BID 08/18/21 11/20/24 His tory mg-copper 1 gh-etjufy-cmpyld capsule (PreserVision AREDS-2) denosumab 60 mg/mL subcutaneous 60 mg subcut [id number] #1 mL 11/20/24 Rx syringe (Prolia) cholecalciferol [...] initially identified by Dr. Jenaro Conroy at [facility] due to elevated calcium levels exceeding 10 [...] ng/mL (08/27/2024), (more content not included)... Normal [facility] Absolute lymphocyte countOrd ered By: Se Bryan on 11-15-2024 Lymphocytes Auto (Unsp spec) [#/Vol] 1.29 10*3/uL 0.83-4.51 [facility] Absolute neutrophil countOrd ered By: Se Stricklandke on 11-15-2024 Neutrophils (Bld) [#/Vol] 5.0 10*3/uL 2.0-7.7 [facility] Anion gap in Serum or Plasma Ordered By: Se Bryan on 11-15-2024 Anion gap [Moles/Vol] 12 mmol/L 07-11 [facility] Automated lymphocyte count a s percentage of total leukocytesOrdered By: Se Bryan on 11-15-2024 Lymphocytes/100 WBC Auto (Unsp spec) 17.3 % Low [facility] BUN/creatinine ratioOrdered By: Se Bryan on 11-15-2024 Urea nitrogen/Creatinine [Mass ratio] 14.1 mg/mg 12-16 [facility] Basic Metabolic Profile (BMP )on 11-15-2024 BUN/CRE 13.6 RATIO Normal 12-16 [facility] Comment on above: Performed By: #### L 500.4050, L100.0100 #### [facility] [address] [place], [address] Calcium [Mass/Vol] 10.7 mg/dL Normal 7.6-11.0 [facility] Comment on above: Performed By: #### L 500.4050, L100.0100 #### [facility] [address] [place], [address] Chloride [Moles/Vol] 106 mmol/L Normal 98-108 [facility] Comment on above: Performed By: #### L 500.4050, L100.0100 #### [facility] [address] [place], [address] CO2 [Moles/Vol] 20.0 mmol/L Low 21.0-32.0 [facility] Comment on above: Performed By: #### L 500.4050, L100.0100 #### [facility] [address] [place], [address] Creatinine [Mass/Vol] 1.05 mg/dL Normal 0.70-1.20 [facility] Comment on above: Performed By: #### L 500.4050, L100.0100 #### [facility] [address] [place], [address] GAP 12 Normal 5-15 [facility] Comment on above: Performed By: #### L 500.4050, L100.0100 #### [facility] [address] [place], [address] GFR/1.73 sq M.predicted among non-blacks MDRD (S/P/Bld) [Vol rate/Area] 55 mL/min/{1.73_m2} Low >60 [facility] Comment on above: Result Comment: mL/m in/1.73m2 CKD-EPI Creatinine Equation (2020) Performed By: #### L 500.4050, L100.0100 #### [facility] [address] [place], [address] Glucose [Mass/Vol] 116 mg/dL High 70-99 [facility] Comment on above: Performed By: #### L 500.4050, L100.0100 #### [facility] [address] [place], [address] Potassium [Moles/Vol] 4.2 mmol/L Normal 3.3-5.1 [facility] Comment on above: Performed By: #### L 500.4050, L100.0100 #### [facility] [address] [place], [address] Sodium [Moles/Vol] 138 mmol/L Normal 133-145 [facility] Comment on above: Performed By: #### L 500.4050, L100.0100 #### [facility] [address] [place], [address] Urea nitrogen [Mass/Vol] 14 mg/dL Normal 4-19 [facility] Comment on above: Performed By: #### L 500.4050, L100.0100 #### [facility] [address] [place], [address] Basophil percentageOrdered B y: Se Bryan on 11-15-2024 Basophils/100 WBC (Bld) 0.5 % 0-1 [facility] Bilirubin, totalOrdered By: Se Bryan on 11-15-2024 Bilirubin [Mass/Vol] 0.28 mg/dL 0.00-1.30 [facility] CBC W/Diff, Automatedon 10-28 Absolute Lymph 1.29 X10 3/uL Normal 0.83-4.51 [facility] Comment on above: Order Comment: Order Date: 07/05/24Order Info: 0184-1 - CBCD Performed By: #### L 500.2500 #### [facility] [address] [place], [address] Absolute Neut 5.0 X10 3/uL Normal 2.0-7.7 [facility] Comment on above: Order Comment: Order Date: 07/05/24Order Info: 0184-1 - CBCD Performed By: #### L 500.2500 #### [facility] [address] [place], [address] Basophils/100 WBC (Bld) 0.5 % Normal 0-1 [facility] Comment on above: Order Comment: Order Date: 07/05/24Order Info: 0184-1 - CBCD Performed By: #### L 500.2500 #### [facility] [address] [place], [address] Eosinophils/100 WBC (Bld) 3.6 % Normal 0-5 [facility] Comment on above: Order Comment: Order Date: 07/05/24Order Info: 0184-1 - CBCD Performed By: #### L 500.2500 #### [facility] [address] [place], [address] Erythrocyte distribution width (RBC) [Ratio] 12.3 % Normal 11.6-14.6 [facility] Comment on above: Order Comment: Order Date: 07/05/24Order Info: 0184-1 - CBCD Performed By: #### L 500.2500 #### [facility] [address] [place], [address] Hematocrit (Bld) [Volume fraction] 32.5 % Low 37-47 [facility] Comment on above: Order Comment: Order Date: 07/05/24Order Info: 0184- - CBCD Performed By: #### L 500.2500 #### [facility] [address] [place], [address] Hemoglobin (Bld) [Mass/Vol] 11.3 g/dL Low 12.0-15.0 [facility] Comment on above: Order Comment: Order Date: 07/05/24Order Info: 0184- - CBCD Performed By: #### L 500.2500 #### [facility] [address] [place], [address] IG% 0.400 Normal 0.0-0.9 [facility] Comment on above: Order Comment: Order Date: 07/05/24Order Info: 0184-1 - CBCD Result Comment: IG% - Immature Granulocytes (promyelocytes, myelocytes and metamyelocytes) > 1% indicates that a LEFT SHIFT is Present. Performed By: #### L 500.2500 #### [facility] [address] [place], [address] Lymphocytes/100 WBC (Bld) 17.3 % Low 19-41 [facility] Comment on above: Order Comment: Order Date: 07/05/24Order Info: 0184-1 - CBCD Performed By: #### L 500.2500 #### [facility] [address] [place], [address] MCH (RBC) [Entitic mass] 32.2 pg High 27.0-32.0 [facility] Comment on above: Order Comment: Order Date: 07/05/24Order Info: 0184-1 - CBCD Performed By: #### L 500.2500 #### [facility] [address] [place], [address] MCHC (RBC) [Mass/Vol] 34.8 g/dL Normal 32-36 [facility] Comment on above: Order Comment: Order Date: 07/05/24Order Info: 0184-1 - CBCD Performed By: #### L 500.2500 #### [facility] [address] [place], [address] MCV (RBC) [Entitic vol] 92.6 fL Normal 81-99 [facility] Comment on above: Order Comment: Order Date: 07/05/24Order Info: 4-1 - CBCD Performed By: #### L 500.2500 #### [facility] [address] [place], [address] Monocytes/100 WBC (Bld) 11.0 % High 0-10 [facility] Comment on above: Order Comment: Order Date: 07/05/24Order Info: 0184-1 - CBCD Performed By: #### L 500.2500 #### [facility] [address] [place], [address] Neutrophils/100 WBC (Bld) 67.2 % Normal 47-70 [facility] Comment on above: Order Comment: Order Date: 07/05/24Order Info: 0184-1 - CBCD Performed By: #### L 500.2500 #### [facility] [address] [place], [address] Nucleated RBC (Bld) [#/Vol] 0 10*3/uL Normal 0-5 [facility] Comment on above: Order Comment: Order Date: 07/05/24Order Info: 0184-1 - CBCD Performed By: #### L 500.2500 #### [facility] [address] [place], [address] Platelet mean volume (Bld) [Entitic vol] 10.0 fL Normal 6.2-12.0 [facility] Comment on above: Order Comment: Order Date: 07/05/24Order Info: 018- - CBCD Performed By: #### L 500.2500 #### [facility] [address] [place], [address] Platelets (Bld) [#/Vol] 256 10*3/uL Normal 150-450 [facility] Comment on above: Order Comment: Order Date: 07/05/24Order Info: 183- - CBCD Performed By: #### L 500.2500 #### [facility] [address] [place], [address] RBC (Bld) [#/Vol] 3.51 10*6/uL Low 4.2-5.4 [facility] Comment on above: Order Comment: Order Date: 07/05/24Order Info: 018- - CBCD Performed By: #### L 500.2500 #### [facility] Laboratory [address] [place], [address] RDW SD 41.8 fl Normal 35.1-43.9 [facility] Comment on above: Order Comment: Order Date: 07/05/24Order Info: [id number] - CBCD Performed By: #### L 500.2500 #### [facility] Laboratory [address] [place], [address] WBC (Bld) [#/Vol] 7.5 10*3/uL Normal 4.4-11.0 [facility] Comment on above: Order Comment: Order Date: 07/05/24Order Info: [id number] - CBCD Performed By: #### L 500.2500 #### [facility] Laboratory [address] [place], [address] Calculated very low density lipoprotein (VLDL) cholesterol measurementOrdered By: Se Bryan on 11-15-2024 Calculated very low density lipoprotein (VLDL) cholesterol measurement 33 mg/dL 5-40 [facility] Carbon dioxide, total [Moles /volume] in Central venous bloodOrdered By: Se Bryan on 11-15-2024 CO2 [Moles/Vol] 20.1 mmol/L Low 21.0-32.0 [facility] Chloride assayOrdered By: Ruth Bryan on 11-15-2024 Chloride [Moles/Vol] 106 mmol/L 98-108 [facility] Comprehensive Metabolic Prof ilon 11-15-2024 Albumin [Mass/Vol] 4.3 g/dL Normal 3.4-4.8 [facility] Comment on above: Order Comment: Order Date: 07/05/24Order Info: [id number] - CMPOrder Info: [id number] - LIPIDOrder Info: [id number] - TSH Performed By: #### L 500.2500 #### [facility] Laboratory [address] [place], [place], [address] Albumin/Globulin [Mass ratio] 1.7 {ratio} Normal 0.9-2.4 [facility] Comment on above: Order Comment: Order Date: 07/05/24Order Info: [id number] - CMPOrder Info: [id number] - LIPIDOrder Info: [id number] - TSH Performed By: #### L 500.2500 #### [facility] Laboratory [address] [place], [address] ALK PHOS 55 U/L Normal 35-104 [facility] Comment on above: Order Comment: Order Date: 07/05/24Order Info: [id number] - CMPOrder Info: [id number] - LIPIDOrder Info: [id number] - TSH Performed By: #### L 500.2500 #### [facility] Laboratory [address] [place], [address] ALT [Catalytic activity/Vol] 17 U/L Normal <=34 [facility] Comment on above: Order Comment: Order Date: 07/05/24Order Info: [id number] - CMPOrder Info: [id number] - LIPIDOrder Info: 3 - TSH Performed By: #### L 500.2500 #### [facility] Laboratory [address] [place], [address] AST [Catalytic activity/Vol] 22 U/L Normal <=31 [facility] Comment on above: Order Comment: Order Date: 07/05/24Order Info: [id number] - CMPOrder Info: [id number] - LIPIDOrder Info: 3 - TSH Performed By: #### L 500.2500 #### [facility] Laboratory [address] [place], [address] Bilirubin [Mass/Vol] 0.28 mg/dL Normal 0.00-1.30 [facility] Comment on above: Order Comment: Order Date: 07/05/24Order Info: [id number] - CMPOrder Info: - LIPIDOrder Info: 3 - TSH Performed By: #### L 500.2500 #### [facility] [address] [place], [address] BUN/CRE 14.1 RATIO Normal 10-20 [facility] Comment on above: Order Comment: Order Date: 07/05/24Order Info: 86- - CMPOrder Info: [id number] - LIPIDOrder Info: [id number] - TSH Performed By: #### L 500.2500 #### [facility] [address] [place], [address] Calcium [Mass/Vol] 11.0 mg/dL Normal 7.6-11.0 [facility] Comment on above: Order Comment: Order Date: 07/05/24Order Info: 86-1 - CMPOrder Info: [id number] - LIPIDOrder Info: 3 - TSH Performed By: #### L 500.2500 #### [facility] [address] [place], [address] Chloride [Moles/Vol] 106 mmol/L Normal 98-108 [facility] Comment on above: Order Comment: Order Date: 07/05/24Order Info: 86-1 - CMPOrder Info: [id number] - LIPIDOrder Info: [id number] - TSH Performed By: #### L 500.2500 #### [facility] [address] [place], [address] CO2 [Moles/Vol] 20.1 mmol/L Low 21.0-32.0 [facility] Comment on above: Order Comment: Order Date: 07/05/24Order Info: 86-1 - CMPOrder Info: [id number] - LIPIDOrder Info: [id number] - TSH Performed By: #### L 500.2500 #### [facility] [address] [place], [address] Creatinine [Mass/Vol] 1.02 mg/dL Normal 0.70-1.20 [facility] Comment on above: Order Comment: Order Date: 07/05/24Order Info: 86-1 - CMPOrder Info: [id number] - LIPIDOrder Info: 6-3 - TSH Performed By: #### L 500.2500 #### [facility] [address] [place], [address] GAP 12 Normal 5-15 [facility] Comment on above: Order Comment: Order Date: 07/05/24Order Info: [id number] - CMPOrder Info: [id number] - LIPIDOrder Info: [id number] - TSH Performed By: #### L 500.2500 #### [facility] [address] [place], [address] GFR/1.73 sq M.predicted among non-blacks MDRD (S/P/Bld) [Vol rate/Area] 57 mL/min/{1.73_m2} Low >60 [facility] Comment on above: Order Comment: Order Date: 07/05/24Order Info: 86-1 - CMPOrder Info: [id number] - LIPIDOrder Info: [id number] - TSH Result Comment: mL/m in/1.73m2 CKD-EPI Creatinine Equation (2020) Performed By: #### L 500.2500 #### [facility] [address] [place], [address] Globulin (S) [Mass/Vol] 2.5 g/dL Normal 2.2-4.2 [facility] Comment on above: Order Comment: Order Date: 07/05/24Order Info: 86-1 - CMPOrder Info: [id number] - LIPIDOrder Info: [id number] - TSH Performed By: #### L 500.2500 #### [facility] [address] [place], [address] Glucose [Mass/Vol] 87 mg/dL Normal 70-99 [facility] Comment on above: Order Comment: Order Date: 07/05/24Order Info: 86-1 - CMPOrder Info: [id number] - LIPIDOrder Info: 6-3 - TSH Performed By: #### L 500.2500 #### [facility] [address] [place], [address] Potassium [Moles/Vol] 4.1 mmol/L Normal 3.3-5.1 [facility] Comment on above: Order Comment: Order Date: 07/05/24Order Info: 86-1 - CMPOrder Info: [id number] - LIPIDOrder Info: [id number] - TSH Performed By: #### L 500.2500 #### [facility] [address] [place], [address] Sodium [Moles/Vol] 138 mmol/L Normal 133-145 [facility] Comment on above: Order Comment: Order Date: 07/05/24Order Info: 86-1 - CMPOrder Info: [id number] - LIPIDOrder Info: [id number] - TSH Performed By: #### L 500.2500 #### [facility] [address] [place], [address] T PROT 6.8 g/dL Normal 5.9-8.4 [facility] Comment on above: Order Comment: Order Date: 07/05/24Order Info: [id number] - CMPOrder Info: [id number] - LIPIDOrder Info: [id number] - TSH Performed By: #### L 500.2500 #### [facility] [address] [place], [place], [id number] Urea nitrogen [Mass/Vol] 14 mg/dL Normal - [facility] Comment on above: Order Comment: Order Date: 07/05/24Order Info: [id number] - CMPOrder Info: [id number] - LIPIDOrder Info: [id number] - TSH Performed By: #### L 500.2500 #### [facility] [address] [place], [place], [address] Eosinophil percentageOrdered By: Se Bryan on 11-15-2024 Eosinophils/100 WBC (Bld) 3.6 % 0-5 [facility] Erythrocyte distribution wid th ratioOrdered By: Se Bryan on 11-15-2024 Erythrocyte distribution width (RBC) [Ratio] 12.3 % 11.6-14.6 [facility] Erythrocyte distribution wid th standard deviationOrdered By: Se Bryan on 11-15-2024 Erythrocyte distribution width (RBC) [Ratio] 41.8 fl 35.1-43.9 [facility] Glomerular filtration rate ( GFR) estimation/1.73 sq m using serum, plasma, or whole bOrdered By: Se Bryan on 11-15-2024 GFR/1.73 sq M.predicted among non-blacks MDRD (S/P/Bld) [Vol rate/Area] 57 mL/min/{1.73_m2} Low >60 [facility] Comment on above: mL/min/1.73m2 CKD-EP I Creatinine Equation (2020) Hematocrit Auto (Bld) [Volum e fraction]Ordered By: Se Bryan on 11-15-2024 Hematocrit (Bld) [Volume fraction] 32.5 % Low 37-47 [facility] Hemoglobin measurementOrdere d By: Se Bryan on 11-15-2024 Hemoglobin (Bld) [Mass/Vol] 11.3 g/dL Low 12.0-15.0 [facility] Immature granulocytes/100 WB C Auto (Bld)Ordered By: Se Bryan on 11-15-2024 Immature granulocytes/100 WBC (Bld) 0.400 % 0.0-0.9 [facility] Comment on above: IG% - Immature Granu locytes (promyelocytes, myelocytes and metamyelocytes) > 1% indicates that a LEFT SHIFT is Present. LDL calc ser/plasOrdered By: Se Bryan on 11-15-2024 Cholesterol in LDL [Mass/Vol] 79 mg/dL [facility] Comment on above: Rfwzqryflo=869-585 m g/dL & Higher Uwnd=790 mg/dL or greaterFriedwald Equation for LDL-C Laboratory - Chemistry and C hemistry - challengeOrdered By: Se Randi on 11-15-2024 AST [Catalytic activity/Vol] 22 U/L <32 [facility] Lipid Profileon 11-15-2024 CHOL:HDL 2.56 Normal [facility] Comment on above: Order Comment: Order Date: 07/05/24Order Info: [id number] - CMPOrder Info: [id number] - LIPIDOrder Info: [id number] - TSH Performed By: #### L 500.2500 #### [facility] [address], [place], [id number] ([address]) Cholesterol [Mass/Vol] 184 mg/dL Normal <=200 [facility] Comment on above: Order Comment: Order Date: 07/05/24Order Info: [id number] - CMPOrder Info: [id number] - LIPIDOrder Info: [id number] - TSH Result Comment: Chol esterol level, Desirable <200 mg/dL Borderline high cholesterol 200-239 mg/dL High cholesterol >=240 mg/dL Recommendations of the NCEP Adult Treatment Panel for the following risk-cutoff thresholds for the [place] population. Performed By: #### L 500.2500 #### [facility] [address] [place], [address] Cholesterol in HDL [Mass/Vol] 72 mg/dL Normal [facility] Comment on above: Order Comment: Order Date: 07/05/24Order Info: 86-1 - CMPOrder Info: [id number] - LIPIDOrder Info: [id number] - TSH Result Comment: Fay onal Cholesterol Education Program (NCEP) guidelines: <40 mg/dL: Low HDL-cholesterol (major risk factor for CHD) >= 60 mg/dL: High HDL-cholesterol (negative risk factor for CHD) HDL-cholesterol is affected by a number of factors, e.g. smoking, exercise, hormones, sex and age. Performed By: #### L 500.2500 #### [facility] [address] [place], [address] Cholesterol in LDL [Mass/Vol] 79 mg/dL Normal [facility] Comment on above: Order Comment: Order Date: 07/05/24Order Info: [id number]- - CMPOrder Info: [id number] - LIPIDOrder Info: 6-3 - TSH Result Comment: Bord hbevef=804-736 mg/dL Higher Bwlh=916 mg/dL or greater Friedwald Equation for LDL-C Performed By: #### L 500.2500 #### [facility] [address] [place], [address] Cholesterol in VLDL [Mass/Vol] 33 mg/dL Normal 5-40 [facility] Comment on above: Order Comment: Order Date: 07/05/24Order Info: [id number] - CMPOrder Info: [id number] - LIPIDOrder Info: 63 - TSH Performed By: #### L 500.2500 #### [facility] [address] [place], [address] Triglyceride [Mass/Vol] 163 mg/dL Normal [facility] Comment on above: Order Comment: Order Date: 07/05/24Order Info: [id number]- - CMPOrder Info: [id number] - LIPIDOrder Info: 6-3 - TSH Result Comment: The drugs N-Acetylcysteine and Metamizole may falsely depress this assay. Normal range: <150 mg/dL Borderline High: 150-199 mg/dL High: 200-499 mg/dL Very High: >500 mg/dL Performed By: #### L 500.2500 #### [facility] [address] [place], [place], [address] MCV (mean corpuscular volume ) determinationOrdered By: Se Stricklandke on 11-15-2024 MCV (RBC) [Entitic vol] 92.6 fL 81-99 [facility] Mean corpuscular hemoglobin (MCH) determinationOrdered By: Se Stricklandke on 11-15-2024 MCH (RBC) [Entitic mass] 32.2 pg High 27.0-32.0 [facility] Mean corpuscular hemoglobin concentration (MCHC) determinationOrdered By: Se Stricklandke on 11-15-2024 MCHC (RBC) [Mass/Vol] 34.8 g/dL 32-36 [facility] Mean platelet volume determi nationOrdered By: Se Stricklandke on 11-15-2024 Platelet mean volume (Bld) [Entitic vol] 10.0 fL 6.2-12.0 [facility] Monocyte percentageOrdered B y: Se Stricklandke on 11-15-2024 Monocytes/100 WBC (Bld) 11.0 % High 0-10 [facility] Neutrophil percentageOrdered By: Se Stricklandke on 11-15-2024 Neutrophils/100 WBC (Bld) 67.2 % 47-70 [facility] Nucleated red blood cell per centageOrdered By: Se Stricklandke on 11-15-2024 Nucleated RBC/100 WBC (Bld) [Ratio] 0 % 0-5 [facility] PTHINon 11-15-2024 PTH 249 pg/mL High 11-61 [facility] Comment on above: Performed By: #### L 500.2500 #### [facility] Laboratory [address] [place], [place], [id number] Platelet countOrdered By: Ruth Bryan on 11-15-2024 Platelets (Bld) [#/Vol] 256 10*3/uL 150-450 [facility] Potassium measurement (mass/ volume)Ordered By: Se Bryan on 11-15-2024 Potassium (Unsp spec) [Mass/Vol] 4.1 mmol/L 3.3-5.1 [facility] RBC Auto (Bld) [#/Vol]Ordere d By: Se Bryan on 11-15-2024 RBC (Bld) [#/Vol] 3.51 10*6/uL Low 4.2-5.4 [facility] Screening total cholesterol/ high density lipoprotein (HDL) cholesterol ratioOrdered By: Se Bryan on 11-15-2024 Cholesterol.total/Mirian sterol in HDL [Mass ratio] 2.56 {ratio} [facility] Serum creatinine measurement (mass/volume)Ordered By: Se Bryan on 11-15-2024 Creatinine [Mass/Vol] 1.02 mg/dL 0.70-1.20 [facility] Serum globulin measurementOr dered By: Se Bryan on 11-15-2024 Globulin (S) [Mass/Vol] 2.5 g/dL 2.2-4.2 [facility] Serum glucose measurement (m ass/volume)Ordered By: Se Bryan on 11-15-2024 Glucose [Mass/Vol] 87 mg/dL 70-99 [facility] Serum or plasma alanine maciel otransferase (ALT) measurementOrdered By: Se Bryan on 11-15-2024 ALT [Catalytic activity/Vol] 17 U/L <35 [facility] Serum or plasma albumin rodriguez urement (mass/volume)Ordered By: Se Bryan on 11-15-2024 Albumin [Mass/Vol] 4.3 g/dL 3.4-4.8 [facility] Serum or plasma albumin/glob ulin mass ratioOrdered By: Se Bryan on 11-15-2024 Albumin/Globulin [Mass ratio] 1.7 {ratio} 0.9-2.4 [facility] Serum or plasma alkaline ana sphatase measurementOrdered By: Se Bryan on 11-15-2024 ALP [Catalytic activity/Vol] 55 U/L 35-104 [facility] Serum or plasma calcium rodriguez urement (mass/volume)Ordered By: Se Bryan on 11-15-2024 Calcium [Mass/Vol] 11.0 mg/dL 7.6-11.0 [facility] Serum or plasma cholesterol in HDL measurement (mass/volume)Ordered By: Se Bryan on 11-15-2024 Cholesterol in HDL [Mass/Vol] 72 mg/dL >40 [facility] Comment on above: National Cholesterol Education Program (NCEP) guidelines:<40 mg/dL: Low HDL-cholesterol (major risk factor for CHD)>= 60 mg/dL: High HDL-cholesterol (negative risk factor for CHD)HDL-cholesterol is affected by a number of factors, e.g. smoking, exercise, hormones, sex and age. Serum or plasma cholesterol measurement (mass/volume)Ordered By: Se Bryan on 11-15-2024 Cholesterol [Mass/Vol] 184 mg/dL <201 [facility] Comment on above: Cholesterol level, D esirable <200 mg/dLBorderline high cholesterol 200-239 mg/dLHigh cholesterol >=240 mg/dLRecommendations of the NCEP Adult Treatment Panel for the following risk-cutoff thresholds for the [place] population. Serum or plasma urea nitroge n measurement (mass/volume)Ordered By: Se Bryan on 11-15-2024 Urea nitrogen [Mass/Vol] 14 mg/dL - [facility] Sodium levelOrdered By: Paige Bryan on 11-15-2024 Sodium [Moles/Vol] 138 mmol/L 133-145 [facility] TSH DL <= 0.005 mIU/L QnOrde red By: Se Bryan on 11-15-2024 TSH Qn 1.730 uIU/mL 0.300-4.200 [facility] Thyroid Stim Hormone (TSH)on 11-15-2024 TSH 1.730 uIU/mL Normal 0.300-4.200 [facility] Comment on above: Order Comment: Order Date: 07/05/24Order Info: [id number] - CMPOrder Info: [id number] - LIPIDOrder Info: [id number] - TSH Performed By: #### L 500.2500 #### [facility] Laboratory [address] [place], [address] Total proteinOrdered By: Amelia Bryan on 11-15-2024 Protein [Mass/Vol] 6.8 g/dL 5.9-8.4 [facility] Triglycerides measurementOrd ered By: Se Bryan on 11-15-2024 Triglyceride [Mass/Vol] 163 mg/dL <199 [facility] Comment on above: The drugs N-Acetylcy steine and Metamizole may falsely depress this assay. Normal range: <150 mg/dLBorderline High: 150-199 mg/dLHigh: 200-499 mg/dLVery High: >500 mg/dL White blood cell (WBC) count Ordered By: Se Bryan on 11-15-2024 WBC (Bld) [#/Vol] 7.5 10*3/uL 4.4-11.0 [facility] Parathyroid Scanon Parathyroid scan [facility] Services [address] [place] [address] Parathyroid Scan MR#: [id number] Acct: [id number] Name: YAJAIRA BUNN Rep #: [id number] : 1945 F 79 From: Richard Porter PCP: Dr. Se Bryan MD Status: REG CLI Study: Parathyroid Scan Date of Exam: 11/05/24 Exam# [id number] Ordering Dr: Guicho Quezada MD PROCEDURE: PARATHYROID [...] a left inferior parathyroid adenoma. Reading Location: [place] [address] CC: OMA Montes; Dr. Se Bryan MD; Dr. Guicho Quezada MD Ballistics Expert: Signed Normal [facility] Thyroidon 11-04-2024 Thyroid [facility] Imaging Services [address] [place] [address] Thyroid MR#: [id number] Acct: [id number] Name: YAJAIRA BUNN Rep #: [id number] : 1945 F 79 From: Rodo lua MD PCP: Dr. Se Bryan MD Status: REG CLI Study: Thyroid Date of Exam: 11/04/24 Exam# [id number] Ordering Dr: Guicho Quezada MD PROCEDURE: THYROID [...] no more than 2 nodules. Reading Location: [id number] CC: Dr. Se Bryan MD; Dr. Guicho Quezada MD Ballistics Expert: Signed Normal [facility] Endocrinology Visit Reporton 10-24-2024 Endocrinology Visit Report [facility] [address] [place] [address]. [address] [place] [address] OFFICE VISIT Date of Service: 10/24/24 MR#: [id number] Acct: [id number] Name: YAJAIRA BUNN Rep #: [id number] : 1945 Provider: Fidel Frias Age/Sex: 79/F Location: [facility] Status: Signed Intake Vital Signs 08/28/24 17:16 10/24/24 15:21 Height 5 ft 5 ft Weight: 171 lb BMI 33.4 BP 151/76 H Blood Pressure Location Lt brachial Position Sitting Pulse 82 Pulse Source Monitor Pulse Oximetry (%) 98 Oxygen Delivery Method room air Intake Visit Reasons: 3 M FU Chief Complaint: Osteoporosis Field Logistics Coordinator Required: No Accompanied by: Self Is patient [...] BID 08/18/21 10/24/24 His tory mg-copper 1 az-xljvxz-vjxfrm capsule (PreserVision AREDS-2) denosumab 60 mg/mL subcutaneous 60 mg subcut [id number] #1 mL 10/24/24 Rx syringe (Prolia) cholecalciferol [...] nourished Orientation: alert, awake and oriented x3 HENAL Head: normal to inspection Ears: hearing grossly [...] normal cognition (more content not included)... Normal [facility] Anion gap in Serum or Plasma Ordered By: Guicho Quezada on 10-11-2024 Anion gap [Moles/Vol] 11 mmol/L 5-15 [facility] BUN/creatinine ratioOrdered By: Guicho Quezada on 10-11-2024 Urea nitrogen/Creatinine [Mass ratio] 15.5 mg/mg 10-20 [facility] Bilirubin, totalOrdered By: Guicho Quezada on 10-11-2024 Bilirubin [Mass/Vol] 0.22 mg/dL 0.00-1.30 [facility] Carbon dioxide, total [Moles /volume] in Central venous bloodOrdered By: Guicho Quezada on 10-11-2024 CO2 [Moles/Vol] 22.6 mmol/L 21.0-32.0 [facility] Chloride assayOrdered By: Demar Quezada on 10-11-2024 Chloride [Moles/Vol] 104 mmol/L 98-108 [facility] Comprehensive Metabolic Prof ilon 10-11-2024 Albumin [Mass/Vol] 4.5 g/dL Normal 3.4-4.8 [facility] Comment on above: Performed By: #### L 500.2500 #### [facility] [address] [place], [address] Albumin/Globulin [Mass ratio] 1.7 {ratio} Normal 0.9-2.4 [facility] Comment on above: Performed By: #### L 500.2500 #### [facility] [address] [place], [address] ALK PHOS 71 U/L Normal 35-104 [facility] Comment on above: Performed By: #### L 500.2500 #### [facility] [address] [place], [address] ALT [Catalytic activity/Vol] 18 U/L Normal <=34 [facility] Comment on above: Performed By: #### L 500.2500 #### [facility] [address] [place], [address] AST [Catalytic activity/Vol] 21 U/L Normal <=31 [facility] Comment on above: Performed By: #### L 500.2500 #### [facility] [address] [place], [address] Bilirubin [Mass/Vol] 0.22 mg/dL Normal 0.00-1.30 [facility] Comment on above: Performed By: #### L 500.2500 #### [facility] [address] [place], [address] BUN/CRE 15.5 RATIO Normal 10-20 [facility] Comment on above: Performed By: #### L 500.2500 #### [facility] [address] [place], [address] Calcium [Mass/Vol] 12.1 mg/dL High 7.6-11.0 [facility] Comment on above: Performed By: #### L 500.2500 #### [facility] [address] [place], [address] Chloride [Moles/Vol] 104 mmol/L Normal 98-108 [facility] Comment on above: Performed By: #### L 500.2500 #### [facility] [address] [place], [address] CO2 [Moles/Vol] 22.6 mmol/L Normal 21.0-32.0 [facility] Comment on above: Performed By: #### L 500.2500 #### [facility] [address] [place], [address] Creatinine [Mass/Vol] 1.07 mg/dL Normal 0.70-1.20 [facility] Comment on above: Performed By: #### L 500.2500 #### [facility] [address] [place], [address] GAP 11 Normal 5-15 [facility] Comment on above: Performed By: #### L 500.2500 #### [facility] [address] [place], [address] GFR/1.73 sq M.predicted among non-blacks MDRD (S/P/Bld) [Vol rate/Area] 53 mL/min/{1.73_m2} Low >60 [facility] Comment on above: Result Comment: mL/m in/1.73m2 CKD-EPI Creatinine Equation (2020) Performed By: #### L 500.2500 #### [facility] [address] [place], [address] Globulin (S) [Mass/Vol] 2.6 g/dL Normal 2.2-4.2 [facility] Comment on above: Performed By: #### L 500.2500 #### [facility] [address] [place], [address] Glucose [Mass/Vol] 100 mg/dL High 70-99 [facility] Comment on above: Performed By: #### L 500.2500 #### [facility] [address] [place], [address] Potassium [Moles/Vol] 4.3 mmol/L Normal 3.3-5.1 [facility] Comment on above: Performed By: #### L 500.2500 #### [facility] [address] [place], [address] Sodium [Moles/Vol] 137 mmol/L Normal 133-145 [facility] Comment on above: Performed By: #### L 500.2500 #### [facility] [address] [place], [address] T PROT 7.1 g/dL Normal 5.9-8.4 [facility] Comment on above: Performed By: #### L 500.2500 #### [facility] [address] [place], [address] Urea nitrogen [Mass/Vol] 17 mg/dL Normal 4-19 [facility] Comment on above: Performed By: #### L 500.2500 #### [facility] [address] [place], [place], [address] Glomerular filtration rate ( GFR) estimation/1.73 sq m using serum, plasma, or whole bOrdered By: Guicho Quezada on 10-11-2024 GFR/1.73 sq M.predicted among non-blacks MDRD (S/P/Bld) [Vol rate/Area] 53 mL/min/{1.73_m2} Low >60 [facility] Comment on above: mL/min/1.73m2 CKD-EP I Creatinine Equation (2020) Laboratory - Chemistry and C hemistry - challengeOrdered By: Guicho Quezada on 10-11-2024 AST [Catalytic activity/Vol] 21 U/L <32 [facility] Potassium measurement (mass/ volume)Ordered By: Guicho Quezada on 10-11-2024 Potassium (Unsp spec) [Mass/Vol] 4.3 mmol/L 3.3-5.1 [facility] Serum creatinine measurement (mass/volume)Ordered By: Guicho Quezada on 10-11-2024 Creatinine [Mass/Vol] 1.07 mg/dL 0.70-1.20 [facility] Serum globulin measurementOr dered By: Guicho Quezada on 10-11-2024 Globulin (S) [Mass/Vol] 2.6 g/dL 2.2-4.2 [facility] Serum glucose measurement (m ass/volume)Ordered By: Guicho Quezada on 10-11-2024 Glucose [Mass/Vol] 100 mg/dL High 70-99 [facility] Serum or plasma alanine maciel otransferase (ALT) measurementOrdered By: Guicho Quezada on 10-11-2024 ALT [Catalytic activity/Vol] 18 U/L <35 [facility] Serum or plasma albumin rodriguez urement (mass/volume)Ordered By: Guicho Quezada on 10-11-2024 Albumin [Mass/Vol] 4.5 g/dL 3.4-4.8 [facility] Serum or plasma albumin/glob ulin mass ratioOrdered By: Guicho Quezada on 10-11-2024 Albumin/Globulin [Mass ratio] 1.7 {ratio} 0.9-2.4 [facility] Serum or plasma alkaline ana sphatase measurementOrdered By: Guicho Quezada on 10-11-2024 ALP [Catalytic activity/Vol] 71 U/L 35-104 [facility] Serum or plasma calcium rodriguez urement (mass/volume)Ordered By: Guicho Quezada on 10-11-2024 Calcium [Mass/Vol] 12.1 mg/dL High 7.6-11.0 [facility] Serum or plasma urea nitroge n measurement (mass/volume)Ordered By: Guicho Quezada on 10-11-2024 Urea nitrogen [Mass/Vol] 17 mg/dL 4-19 [facility] Sodium levelOrdered By: Guicho Quezada on 10-11-2024 Sodium [Moles/Vol] 137 mmol/L 133-145 [facility] Total proteinOrdered By: Levon Quezada on 10-11-2024 Protein [Mass/Vol] 7.1 g/dL 5.9-8.4 [facility] 12 Lead EKGon 08-28-2024 12 Lead EKG [facility] [address] [place] [address] 12 Lead EKG 08/28/24 1933 MR#: [id number] Acct: [id number] Name: YAJAIRA BUNN Rep #: [id number] : 1945 78 From: Joe Velasco MD [...] ECG Confirmed by BRIDGETTE VALLE, JOE ([id number]), video news editor SAMIRA ERNST ([id number]) on 08/29/2024 10:07:31 AM Referred By: Confirmed By: JEO VELASCO MD 08/29/24 1007 Date Joe Velasco MD CC: Dr. Se Bryan MD; Dr. Lorne Cherry MD Signed Normal [facility] Absolute lymphocyte countOrd ered By: Lorne Cherry on 08-28-2024 Lymphocytes Auto (Unsp spec) [#/Vol] 1.62 10*3/uL 0.83-4.51 [facility] Absolute neutrophil countOrd ered By: Lorne Cherry on 08-28-2024 Neutrophils (Bld) [#/Vol] 5.7 10*3/uL 2.0-7.7 [facility] Anion gap in Serum or Plasma Ordered By: Lorne Cherry on 08-28-2024 Anion gap [Moles/Vol] 14 mmol/L - [facility] Automated lymphocyte count a s percentage of total leukocytesOrdered By: Lorne Cherry on 08-28-2024 Lymphocytes/100 WBC Auto (Unsp spec) 19.2 % 19-41 [facility] BUN/creatinine ratioOrdered By: Lorne Cherry on 08-28-2024 Urea nitrogen/Creatinine [Mass ratio] 16.1 mg/mg 10-20 [facility] Basic Metabolic Profile (BMP )on 08-28-2024 BUN Normal 4-19 [facility] Comment on above: Result Comment: Canc elled via OM: MD Ordered Performed By: #### L 500.2500 #### [facility] [address] [place], [address] BUN/CRE Normal 10-20 [facility] Comment on above: Result Comment: Canc elled via OM: MD Ordered Performed By: #### L 500.2500 #### [facility] [address] [place], [address] Calcium Normal 7.6-11.0 [facility] Comment on above: Result Comment: Canc elled via OM: MD Ordered Performed By: #### L 500.2500 #### [facility] [address] [place], [address] CL Normal 98-108 [facility] Comment on above: Result Comment: Canc elled via OM: MD Ordered Performed By: #### L 500.2500 #### [facility] [address] [place], [address] CO2 Normal 21.0-32.0 [facility] Comment on above: Result Comment: Canc elled via OM: MD Ordered Performed By: #### L 500.2500 #### [facility] [address] [place], [address] CREAT,SERUM Normal 0.70-1.20 [facility] Comment on above: Result Comment: Canc elled via OM: MD Ordered Performed By: #### L 500.2500 #### [facility] [address] [place], [address] eGFR Normal >60 [facility] Comment on above: Result Comment: Canc elled via OM: MD Ordered Performed By: #### L 500.2500 #### [facility] [address] [place], [address] GAP Normal 5-15 [facility] Comment on above: Result Comment: Canc elled via OM: MD Ordered Performed By: #### L 500.2500 #### [facility] [address] [place], [address] GLU Normal 70-99 [facility] Comment on above: Result Comment: Canc elled via OM: MD Ordered Performed By: #### L 500.2500 #### [facility] [address] [place], [address] Potassium Normal 3.3-5.1 [facility] Comment on above: Result Comment: Canc elled via OM: MD Ordered Performed By: #### L 500.2500 #### [facility] [address] [place], [address] Basic Metabolic Profile (BMP) Normal 133-145 [facility] Comment on above: Result Comment: Canc elled via OM: MD Ordered Performed By: #### L 500.2500 #### [facility] [address] [place], [address] Basophil percentageOrdered B y: Lorne Cherry on 08-28-2024 Basophils/100 WBC (Bld) 0.6 % 0-1 [facility] Bilirubin Test strip Ql (U)O rdered By: Lorne Cherry on 08-28-2024 Bilirubin Ql (U) Negative Negative [facility] Bilirubin, totalOrdered By: Lorne Cherry on 08-28-2024 Bilirubin [Mass/Vol] 0.30 mg/dL 0.00-1.30 [facility] CBC W/Diff, Automatedon Absolute Lymph 1.62 X10 3/uL Normal 0.83-4.51 [facility] Comment on above: Performed By: #### L 500.4050, L100.0100 #### [facility] [address] [place], [address] Absolute Neut 5.7 X10 3/uL Normal 2.0-7.7 [facility] Comment on above: Performed By: #### L 500.4050, L100.0100 #### [facility] [address] [place], [address] Basophils/100 WBC (Bld) 0.6 % Normal 0-1 [facility] Comment on above: Performed By: #### L 500.4050, L100.0100 #### [facility] [address] [place], [address] Eosinophils/100 WBC (Bld) 2.7 % Normal 0-5 [facility] Comment on above: Performed By: #### L 500.4050, L100.0100 #### [facility] [address] [place], [address] Erythrocyte distribution width (RBC) [Ratio] 11.9 % Normal 11.6-14.6 [facility] Comment on above: Performed By: #### L 500.4050, L100.0100 #### [facility] [address] [place], [address] Hematocrit (Bld) [Volume fraction] 35.6 % Low 37-47 [facility] Comment on above: Performed By: #### L 500.4050, L100.0100 #### [facility] [address] [place], [address] Hemoglobin (Bld) [Mass/Vol] 12.3 g/dL Normal 12.0-15.0 [facility] Comment on above: Performed By: #### L 500.4050, L100.0100 #### [facility] [address] [place], [address] IG% 0.500 Normal 0.0-0.9 [facility] Comment on above: Result Comment: IG% - Immature Granulocytes (promyelocytes, myelocytes and metamyelocytes) > 1% indicates that a LEFT SHIFT is Present. Performed By: #### L 500.4050, L100.0100 #### [facility] [address] [place], [address] Lymphocytes/100 WBC (Bld) 19.2 % Normal 19-41 [facility] Comment on above: Performed By: #### L 500.4050, L100.0100 #### [facility] [address] [place], [address] MCH (RBC) [Entitic mass] 32.5 pg High 27.0-32.0 [facility] Comment on above: Performed By: #### L 500.4050, L100.0100 #### [facility] [address] [place], [address] MCHC (RBC) [Mass/Vol] 34.6 g/dL Normal 32-36 [facility] Comment on above: Performed By: #### L 500.4050, L100.0100 #### [facility] [address] [place], [address] MCV (RBC) [Entitic vol] 93.9 fL Normal 81-99 [facility] Comment on above: Performed By: #### L 500.4050, L100.0100 #### [facility] [address] [place], [address] Monocytes/100 WBC (Bld) 9.6 % Normal 0-10 [facility] Comment on above: Performed By: #### L 500.4050, L100.0100 #### [facility] [address] [place], [address] Neutrophils/100 WBC (Bld) 67.4 % Normal 47-70 [facility] Comment on above: Performed By: #### L 500.4050, L100.0100 #### [facility] [address] [place], [address] Nucleated RBC (Bld) [#/Vol] 0 10*3/uL Normal 0-5 [facility] Comment on above: Performed By: #### L 500.4050, L100.0100 #### [facility] [address] [place], [address] Platelet mean volume (Bld) [Entitic vol] 10.3 fL Normal 6.2-12.0 [facility] Comment on above: Performed By: #### L 500.4050, L100.0100 #### [facility] [address] [place], [address] Platelets (Bld) [#/Vol] 262 10*3/uL Normal 150-450 [facility] Comment on above: Performed By: #### L 500.4050, L100.0100 #### [facility] [address] [place], [address] RBC (Bld) [#/Vol] 3.79 10*6/uL Low 4.2-5.4 [facility] Comment on above: Performed By: #### L 500.4050, L100.0100 #### [facility] [address] [place], [address] RDW SD 40.4 fl Normal 35.1-43.9 [facility] Comment on above: Performed By: #### L 500.4050, L100.0100 #### [facility] [address] [place], [address] WBC (Bld) [#/Vol] 8.4 10*3/uL Normal 4.4-11.0 [facility] Comment on above: Performed By: #### L 500.4050, L100.0100 #### [facility] [address] [place], [address] Carbon dioxide, total [Moles /volume] in Central venous bloodOrdered By: Lorne Cherry on 08-28-2024 CO2 [Moles/Vol] 19.3 mmol/L Low 21.0-32.0 [facility] Chloride assayOrdered By: Ug o Cherry on 08-28-2024 Chloride [Moles/Vol] 104 mmol/L 98-108 [facility] Comprehensive Metabolic Prof ilon 08-28-2024 Albumin [Mass/Vol] 4.4 g/dL Normal 3.4-4.8 [facility] Comment on above: Performed By: #### L 500.4050, L100.0100 #### [facility] [address] [place], [address] Albumin/Globulin [Mass ratio] 1.7 {ratio} Normal 0.9-2.4 [facility] Comment on above: Performed By: #### L 500.4050, L100.0100 #### [facility] [address] [place], [address] ALK PHOS 80 U/L Normal 35-104 [facility] Comment on above: Performed By: #### L 500.4050, L100.0100 #### [facility] [address] [place], [address] ALT [Catalytic activity/Vol] 16 U/L Normal <=34 [facility] Comment on above: Performed By: #### L 500.4050, L100.0100 #### [facility] [address] [place], [address] AST [Catalytic activity/Vol] 29 U/L Normal <=31 [facility] Comment on above: Result Comment: Hemo lysis present, Results??could be affected. ?? Performed By: #### L 500.4050, L100.0100 #### [facility] [address] [place], [address] Bilirubin [Mass/Vol] 0.30 mg/dL Normal 0.00-1.30 [facility] Comment on above: Performed By: #### L 500.4050, L100.0100 #### [facility] [address] [place], [address] BUN/CRE 16.1 RATIO Normal 10-20 [facility] Comment on above: Performed By: #### L 500.4050, L100.0100 #### [facility] [address] [place], [address] Calcium [Mass/Vol] 11.4 mg/dL High 7.6-11.0 [facility] Comment on above: Performed By: #### L 500.4050, L100.0100 #### [facility] [address] [place], [address] Chloride [Moles/Vol] 104 mmol/L Normal 98-108 [facility] Comment on above: Performed By: #### L 500.4050, L100.0100 #### [facility] [address] [place], [address] CO2 [Moles/Vol] 19.3 mmol/L Low 21.0-32.0 [facility] Comment on above: Performed By: #### L 500.4050, L100.0100 #### [facility] [address] [place], [address] Creatinine [Mass/Vol] 1.08 mg/dL Normal 0.70-1.20 [facility] Comment on above: Performed By: #### L 500.4050, L100.0100 #### [facility] [address] [place], [address] ECRCL 40.44 ml/min Low 50-250 [facility] Comment on above: Performed By: #### L 500.4050, L100.0100 #### [facility] [address] [place], [address] GAP 14 Normal 5-15 [facility] Comment on above: Performed By: #### L 500.4050, L100.0100 #### [facility] [address] [place], [address] GFR/1.73 sq M.predicted among non-blacks MDRD (S/P/Bld) [Vol rate/Area] 53 mL/min/{1.73_m2} Low >60 [facility] Comment on above: Result Comment: mL/m in/1.73m2 CKD-EPI Creatinine Equation (2020) Performed By: #### L 500.4050, L100.0100 #### [facility] [address] [place], [address] Globulin (S) [Mass/Vol] 2.6 g/dL Normal 2.2-4.2 [facility] Comment on above: Performed By: #### L 500.4050, L100.0100 #### [facility] [address] [place], [address] Glucose [Mass/Vol] 89 mg/dL Normal 70-99 [facility] Comment on above: Performed By: #### L 500.4050, L100.0100 #### [facility] [address] [place], [address] Potassium [Moles/Vol] 4.3 mmol/L Normal 3.3-5.1 [facility] Comment on above: Result Comment: Hemo lysis present, Results??could be affected. ?? Performed By: #### L 500.4050, L100.0100 #### [facility] [address] [place], [address] Sodium [Moles/Vol] 138 mmol/L Normal 133-145 [facility] Comment on above: Performed By: #### L 500.4050, L100.0100 #### [facility] [address] [place], [address] T PROT 7.0 g/dL Normal 5.9-8.4 [facility] Comment on above: Performed By: #### L 500.4050, L100.0100 #### [facility] [address] [place], [address] Urea nitrogen [Mass/Vol] 17 mg/dL Normal 4-19 [facility] Comment on above: Performed By: #### L 500.4050, L100.0100 #### [facility] [address] [place], [address] Emergency Department Summary on 08-28-2024 Emergency Department Summary [facility] Medical Records Department [address] [facility] [place] [address] Emergency Department Summary 08/28/24 MR#: [id number] Acct: [id number] Name: YAJAIRA BUNN Rep #: [id number] : 1945 78 From: Lorne Cherry MD [...] symptoms: Yes Recent Illness/Hospitalizatio n: No PFSH PFS Medical History Vitamin D [...] BID 08/18/21 Unknown Hist ory mg-copper 1 [id number] capsule (PreserVision AREDS-2) denosumab 60 mg/mL subcutaneous 60 mg subcut [id number] #1 mL Unknown Rx syringe (Prolia) cholecalciferol [...] 160/71 H (more content not included)... Normal [facility] Eosinophil percentageOrdered By: Lorne Cherry on 08-28-2024 Eosinophils/100 WBC (Bld) 2.7 % 0-5 [facility] Erythrocyte distribution wid th ratioOrdered By: Lorne Cherry on 08-28-2024 Erythrocyte distribution width (RBC) [Ratio] 11.9 % 11.6-14.6 [facility] Erythrocyte distribution wid th standard deviationOrdered By: Lorne Cherry on 08-28-2024 Erythrocyte distribution width (RBC) [Ratio] 40.4 fl 35.1-43.9 [facility] Glomerular filtration rate ( GFR) estimation/1.73 sq m using serum, plasma, or whole bOrdered By: Lorne Cherry on 08-28-2024 GFR/1.73 sq M.predicted among non-blacks MDRD (S/P/Bld) [Vol rate/Area] 53 mL/min/{1.73_m2} Low >60 [facility] Comment on above: mL/min/1.73m2 CKD-EP I Creatinine Equation (2020) Hematocrit Auto (Bld) [Volum e fraction]Ordered By: Lorne Cherry on 08-28-2024 Hematocrit (Bld) [Volume fraction] 35.6 % Low 37-47 [facility] Hemoglobin measurementOrdere d By: Lorne Cherry on 08-28-2024 Hemoglobin (Bld) [Mass/Vol] 12.3 g/dL 12.0-15.0 [facility] Immature granulocytes/100 WB C Auto (Bld)Ordered By: Lorne Cherry on 08-28-2024 Immature granulocytes/100 WBC (Bld) 0.500 % 0.0-0.9 [facility] Comment on above: IG% - Immature Granu locytes (promyelocytes, myelocytes and metamyelocytes) > 1% indicates that a LEFT SHIFT is Present. Ketones Test strip Ql (U)Ord ered By: Lorne Cherry on 08-28-2024 Ketones Ql (U) 5 mg/dl High Negative [facility] Laboratory - Chemistry and C hemistry - challengeOrdered By: Lornecade Cherry on 08-28-2024 AST [Catalytic activity/Vol] 29 U/L <32 [facility] Comment on above: Hemolysis present, R esults could be affected. MCV (mean corpuscular volume ) determinationOrdered By: Lorne Cherry on 08-28-2024 MCV (RBC) [Entitic vol] 93.9 fL 81-99 [facility] Mean corpuscular hemoglobin (MCH) determinationOrdered By: Lorne Cherry on 08-28-2024 MCH (RBC) [Entitic mass] 32.5 pg High 27.0-32.0 [facility] Mean corpuscular hemoglobin concentration (MCHC) determinationOrdered By: Lorne Cherry on 08-28-2024 MCHC (RBC) [Mass/Vol] 34.6 g/dL 32-36 [facility] Mean platelet volume determi nationOrdered By: Lorne Cherry on 08-28-2024 Platelet mean volume (Bld) [Entitic vol] 10.3 fL 6.2-12.0 [facility] Microscopic analysis of urin e for red blood cells (RBC)Ordered By: Lorne Cherry on 08-28-2024 Microscopic analysis of urine for red blood cells (RBC) 0-5 SEEN /hpf 0-5 [facility] Monocyte percentageOrdered B y: Lorne Cherry on 08-28-2024 Monocytes/100 WBC (Bld) 9.6 % 0-10 [facility] Mucus LM Ql (Urine sed)Order ed By: Lorne Cherry on 08-28-2024 Mucus Ql (Urine sed) 0 SEEN /hpf [facility] Neutrophil percentageOrdered By: Lornecade Cherry on 08-28-2024 Neutrophils/100 WBC (Bld) 67.4 % 47-70 [facility] Nitrite Test strip Ql (U)Ord ered By: Lorne Cherry on 08-28-2024 Nitrite Ql (U) Negative Negative [facility] Nucleated red blood cell per centageOrdered By: Lorne Cherry on 08-28-2024 Nucleated RBC/100 WBC (Bld) [Ratio] 0 % 0-5 [facility] Platelet countOrdered By: cade Cherry on 08-28-2024 Platelets (Bld) [#/Vol] 262 10*3/uL 150-450 [facility] Potassium measurement (mass/ volume)Ordered By: Lorne Cherry on 08-28-2024 Potassium (Unsp spec) [Mass/Vol] 4.3 mmol/L 3.3-5.1 [facility] Comment on above: Hemolysis present, R esults could be affected. Protein Test strip Ql (U)Ord ered By: Lorne Cherry on 08-28-2024 Protein Ql (U) Negative Negative [facility] RBC Auto (Bld) [#/Vol]Ordere d By: Lorne Cherry on 08-28-2024 RBC (Bld) [#/Vol] 3.79 10*6/uL Low 4.2-5.4 [facility] Serum creatinine measurement (mass/volume)Ordered By: Lorne Cherry on 08-28-2024 Creatinine [Mass/Vol] 1.08 mg/dL 0.70-1.20 [facility] Serum globulin measurementOr dered By: Lorne Cherry on 08-28-2024 Globulin (S) [Mass/Vol] 2.6 g/dL 2.2-4.2 [facility] Serum glucose measurement (m ass/volume)Ordered By: Lorne Cherry on 08-28-2024 Glucose [Mass/Vol] 89 mg/dL 70-99 [facility] Serum or plasma alanine maciel otransferase (ALT) measurementOrdered By: Lornecade Cherry on 08-28-2024 ALT [Catalytic activity/Vol] 16 U/L <35 [facility] Serum or plasma albumin rodriguez urement (mass/volume)Ordered By: Lornecade Cherry on 08-28-2024 Albumin [Mass/Vol] 4.4 g/dL 3.4-4.8 [facility] Serum or plasma albumin/glob ulin mass ratioOrdered By: Lornecdae Cherry on 08-28-2024 Albumin/Globulin [Mass ratio] 1.7 {ratio} 0.9-2.4 [facility] Serum or plasma alkaline ana sphatase measurementOrdered By: Lornecade Cherry on 08-28-2024 ALP [Catalytic activity/Vol] 80 U/L 35-104 [facility] Serum or plasma calcium rodriguez urement (mass/volume)Ordered By: Lorne Cherry on 08-28-2024 Calcium [Mass/Vol] 11.4 mg/dL High 7.6-11.0 [facility] Serum or plasma urea nitroge n measurement (mass/volume)Ordered By: Lorne Cherry on 08-28-2024 Urea nitrogen [Mass/Vol] 17 mg/dL 4-19 [facility] Sodium levelOrdered By: Lornecade Cherry on 08-28-2024 Sodium [Moles/Vol] 138 mmol/L 133-145 [facility] Squamous epithelial cells de tection in urine sediment by light microscopyOrdered By: Lorne Cherry on 08-28-2024 Epithelial cells.squamous LM Ql (Urine sed) 0-5 SEEN /hpf 5-10 [facility] Total proteinOrdered By: Lorne Cherry on 08-28-2024 Protein [Mass/Vol] 7.0 g/dL 5.9-8.4 [facility] Urinalysis, Completeon 08-28 EPI,SQUAMOUS 0-5 SEEN Normal 5-10 [facility] Comment on above: Order Comment: CLEAN CATCH Performed By: #### L 400.0001 #### [facility] [address] [place], [address] RBC 0-5 SEEN Normal 0-5 [facility] Comment on above: Order Comment: CLEAN CATCH Performed By: #### L 400.0001 #### [facility] [address] [place], [address] WBC 0-5 SEEN Normal 0-5 [facility] Comment on above: Order Comment: CLEAN CATCH Performed By: #### L 400.0001 #### [facility] [address] [place], [address] BACTERIA 0 SEEN Normal None Seen [facility] Comment on above: Order Comment: CLEAN CATCH Performed By: #### L 400.0001 #### [facility] [address] [place], [address] Mucus Ql (Urine sed) 0 SEEN Normal [facility] Comment on above: Order Comment: CLEAN CATCH Performed By: #### L 400.0001 #### [facility] [address] [place], [address] Urine clarityOrdered By: Lorne Cherry on 08-28-2024 Clarity (U) Clear Clear [facility] Urine color determinationOrd ered By: Lorne Cherry on 08-28-2024 Color (U) Yellow Yellow [facility] Urine glucose detectionOrder ed By: Lorne Cherry on 08-28-2024 Glucose Ql (U) Normal mg/dl Normal [facility] Urine leukocyte esterase det ection by dipstickOrdered By: Lorne Cherry on 08-28-2024 Leukocyte esterase Test strip Ql (U) 25 /ul High Negative [facility] Urine pHOrdered By: Lorne quevedo on 08-28-2024 pH (U) 7.0 [pH] 5.0 - 8.0 [facility] Urine sediment bacteria coun t by microscopy (number/high power field)Ordered By: Lorne Cherry on 08-28-2024 Bacteria LM.HPF (Urine sed) [#/Area] 0 /[HPF] None Seen [facility] Urine specific gravity measu rementOrdered By: Lorne Cherry on 08-28-2024 Specific gravity (U) [Rel density] 1.010 1.002-1.030 [facility] Urine urobilinogen measureme ntOrdered By: Lorne Cherry on 08-28-2024 Urobilinogen Ql (U) Normal mg/dl Normal [facility] White blood cell (WBC) count Ordered By: Lornecade Cherry on 08-28-2024 WBC (Bld) [#/Vol] 8.4 10*3/uL 4.4-11.0 [facility] White blood cell countOrdere d By: Lorne Cherry on 08-28-2024 White blood cell count 0-5 SEEN /hpf 0-5 [facility] Anion gap in Serum or Plasma Ordered By: Guicho Quezada on 08-27-2024 Anion gap [Moles/Vol] 13 mmol/L 5-15 [facility] BUN/creatinine ratioOrdered By: Guicho Quezada on 08-27-2024 Urea nitrogen/Creatinine [Mass ratio] 15.1 mg/mg 10-20 [facility] Bilirubin, totalOrdered By: Guicho Quezada on 08-27-2024 Bilirubin [Mass/Vol] 0.23 mg/dL 0.00-1.30 [facility] Carbon dioxide, total [Moles /volume] in Central venous bloodOrdered By: Guicho Quezada on 08-27-2024 CO2 [Moles/Vol] 23.3 mmol/L 21.0-32.0 [facility] Chloride assayOrdered By: Demar Quezada on 08-27-2024 Chloride [Moles/Vol] 102 mmol/L 98-108 [facility] Comprehensive Metabolic Prof ilon 08-27-2024 Albumin [Mass/Vol] 4.3 g/dL Normal 3.4-4.8 [facility] Comment on above: Order Comment: KISHOR Mckeon ADD TO LABS DONE ON 08-26-24 STORED: MG5 5 F Performed By: #### L 506.1001, L500.4050 #### [facility] [address] [place], [address] Albumin/Globulin [Mass ratio] 1.7 {ratio} Normal 0.9-2.4 [facility] Comment on above: Order Comment: PLEAS E ADD TO LABS DONE ON 08-26-24 STORED: MG5 5 F Performed By: #### L 506.1001, [id number] #### [facility] [address] [place], [address] ALK PHOS 76 U/L Normal 35-104 [facility] Comment on above: Order Comment: PLEAS E ADD TO LABS DONE ON 08-26-24 STORED: MG5 5 F Performed By: #### L 506.1001, [id number] #### [facility] [address] [place], [address] ALT [Catalytic activity/Vol] 15 U/L Normal <=34 [facility] Comment on above: Order Comment: PLEAS E ADD TO LABS DONE ON 08-26-24 STORED: MG5 5 F Performed By: #### L 506.1001, [id number] #### [facility] [address] [place], [address] AST [Catalytic activity/Vol] 24 U/L Normal <=31 [facility] Comment on above: Order Comment: PLEAS E ADD TO LABS DONE ON 08-26-24 STORED: MG5 5 F Performed By: #### L 506.1001, [id number] #### [facility] [address] [place], [address] Bilirubin [Mass/Vol] 0.23 mg/dL Normal 0.00-1.30 [facility] Comment on above: Order Comment: PLEAS E ADD TO LABS DONE ON 08-26-24 STORED: MG5 5 F Performed By: #### L 506.1001, [id number] #### [facility] [address] [place], [address] BUN/CRE 15.1 RATIO Normal 10-20 [facility] Comment on above: Order Comment: PLEAS E ADD TO LABS DONE ON 08-26-24 STORED: MG5 5 F Performed By: #### L 506.1001, [id number] #### [facility] [address] [place], [address] Calcium [Mass/Vol] 13.7 mg/dL Invalid Interpretation Code 7.6-11.0 [facility] Comment on above: Order Comment: PLEAS E ADD TO LABS DONE ON 08-26-24 STORED: MG5 5 F Result Comment: Crit ical Result(s) Called SUNNY WELLS at: 1643 by: AMBERLY??Results read back by same. Performed By: #### L 506.1001, [id number] #### [facility] [address] [place], [address] Chloride [Moles/Vol] 102 mmol/L Normal 98-108 [facility] Comment on above: Order Comment: PLEAS E ADD TO LABS DONE ON 08-26-24 STORED: MG5 5 F Performed By: #### L 506.1001, [id number] #### [facility] [address] [place], [address] CO2 [Moles/Vol] 23.3 mmol/L Normal 21.0-32.0 [facility] Comment on above: Order Comment: PLEAS E ADD TO LABS DONE ON 08-26-24 STORED: MG5 5 F Performed By: #### L 506.1001, [id number] #### [facility] [address] [place], [address] Creatinine [Mass/Vol] 1.19 mg/dL Normal 0.70-1.20 [facility] Comment on above: Order Comment: PLEAS E ADD TO LABS DONE ON 08-26-24 STORED: MG5 5 F Performed By: #### L 506.1001, [id number] #### [facility] [address] [place], [address] GAP 13 Normal 5-15 [facility] Comment on above: Order Comment: PLEAS E ADD TO LABS DONE ON 08-26-24 STORED: MG5 5 F Performed By: #### L 506.1001, [id number] #### [facility] [address] [place], [address] GFR/1.73 sq M.predicted among non-blacks MDRD (S/P/Bld) [Vol rate/Area] 47 mL/min/{1.73_m2} Low >60 [facility] Comment on above: Order Comment: PLEAS E ADD TO LABS DONE ON 08-26-24 STORED: MG5 5 F Result Comment: mL/m in/1.73m2 CKD-EPI Creatinine Equation (2020) Performed By: #### L 506.1001, [id number] #### [facility] [address] [place], [address] Globulin (S) [Mass/Vol] 2.5 g/dL Normal 2.2-4.2 [facility] Comment on above: Order Comment: PLEAS E ADD TO LABS DONE ON 08-26-24 STORED: MG5 5 F Performed By: #### L 506.1001, [id number] #### [facility] [address] [place], [address] Glucose [Mass/Vol] 107 mg/dL High 70-99 [facility] Comment on above: Order Comment: PLEAS E ADD TO LABS DONE ON 08-26-24 STORED: MG5 5 F Performed By: #### L 506.1001, [id number] #### [facility] [address] [place], [address] Potassium [Moles/Vol] 4.5 mmol/L Normal 3.3-5.1 [facility] Comment on above: Order Comment: PLEAS E ADD TO LABS DONE ON 08-26-24 STORED: MG5 5 F Performed By: #### L 506.1001, [id number] #### [facility] [address] [place], [address] Sodium [Moles/Vol] 138 mmol/L Normal 133-145 [facility] Comment on above: Order Comment: PLEAS E ADD TO LABS DONE ON 08-26-24 STORED: MG5 5 F Performed By: #### L 506.1001, [id number] #### [facility] [address] [place], [address] T PROT 6.8 g/dL Normal 5.9-8.4 [facility] Comment on above: Order Comment: PLEAS E ADD TO LABS DONE ON 08-26-24 STORED: MG5 5 F Performed By: #### L 506.1001, [id number] #### [facility] [address] [place], [address] Urea nitrogen [Mass/Vol] 18 mg/dL Normal 4-19 [facility] Comment on above: Order Comment: PLEAS E ADD TO LABS DONE ON 08-26-24 STORED: MG5 5 F Performed By: #### L 506.1001, [id number] #### [facility] [address] [place], [address] Glomerular filtration rate ( GFR) estimation/1.73 sq m using serum, plasma, or whole bOrdered By: Guicho Quezada on 08-27-2024 GFR/1.73 sq M.predicted among non-blacks MDRD (S/P/Bld) [Vol rate/Area] 47 mL/min/{1.73_m2} Low >60 [facility] Comment on above: mL/min/1.73m2 CKD-EP I Creatinine Equation (2020) Laboratory - Chemistry and C hemistry - challengeOrdered By: Guicho Quezada on 08-27-2024 AST [Catalytic activity/Vol] 24 U/L <32 [facility] Potassium measurement (mass/ volume)Ordered By: Guicho Quezada on 08-27-2024 Potassium (Unsp spec) [Mass/Vol] 4.5 mmol/L 3.3-5.1 [facility] Serum creatinine measurement (mass/volume)Ordered By: Guicho Quezada on 08-27-2024 Creatinine [Mass/Vol] 1.19 mg/dL 0.70-1.20 [facility] Serum globulin measurementOr dered By: Guicho Quezada on 08-27-2024 Globulin (S) [Mass/Vol] 2.5 g/dL 2.2-4.2 [facility] Serum glucose measurement (m ass/volume)Ordered By: Guicho Quezada on 08-27-2024 Glucose [Mass/Vol] 107 mg/dL High 70-99 [facility] Serum or plasma alanine maciel otransferase (ALT) measurementOrdered By: Guicho Quezada on 08-27-2024 ALT [Catalytic activity/Vol] 15 U/L <35 [facility] Serum or plasma albumin rodriguez urement (mass/volume)Ordered By: Guicho Quezada on 08-27-2024 Albumin [Mass/Vol] 4.3 g/dL 3.4-4.8 [facility] Serum or plasma albumin/glob ulin mass ratioOrdered By: Guicho Quezada on 08-27-2024 Albumin/Globulin [Mass ratio] 1.7 {ratio} 0.9-2.4 [facility] Serum or plasma alkaline ana sphatase measurementOrdered By: Guicho Quezada on 08-27-2024 ALP [Catalytic activity/Vol] 76 U/L 35-104 [facility] Serum or plasma calcium rodriguez urement (mass/volume)Ordered By: Guicho Quezada on 08-27-2024 Calcium [Mass/Vol] 13.7 mg/dL Critically high 7.6-11.0 [facility] Comment on above: Critical Result(s) C nathen CORREA RN at: 1643 by: AMBERLY Results read back by same. Serum or plasma urea nitroge n measurement (mass/volume)Ordered By: Guicho Quezada on 08-27-2024 Urea nitrogen [Mass/Vol] 18 mg/dL 4-19 [facility] Sodium levelOrdered By: Guicho Quezada on 07-01-2025 Sodium [Moles/Vol] 138 mmol/L 133-145 [facility] Total proteinOrdered By: Levon Quezada on 08-27-2024 Protein [Mass/Vol] 6.8 g/dL 5.9-8.4 [facility] Vitamin D,25 Hydroxyon 08-27 Vitamin D 25-OH 64.0 ng/mL Normal 30-100 [facility] Comment on above: Order Comment: KISHOR Mckeon ADD TO LABS DONE ON 08-26-24 STORED: MG5 5 F Result Comment: Heidi min D Status Deficiency: <20 ng/mL (50nmol/L) Insufficiency: 20-30 ng/mL (50-75 nmol/L) Sufficiency: 30-100 ng/mL (75-250 nmol/L) Toxicity: >100 ng/mL (>250 nmol/L) Performed By: #### L 506.1001, L500.4050 #### [facility] [address] [place], [place], [address] Endocrinology Visit Reporton 08-26-2024 Endocrinology Visit Report [facility] 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 ) [facility] Medical History Vitamin D deficiency Abnormal [...] Procedures In (more content not included)... Normal [facility] Ferritinon 08-26-2024 Ferritin [Mass/Vol] 208 ng/mL Normal 22-378 [facility] Comment on above: Performed By: #### L 503.0106, L503.6550 #### [facility] [address] [place], [address] Serum or plasma ferritin ezra surement (mass/volume)Ordered By: Guicho Quezada on 08-26-2024 Ferritin [Mass/Vol] 208 ng/mL 22-378 [facility] Vitamin B12on 08-26-2024 Cobalamin (Vitamin B12) [Mass/Vol] 1101 pg/mL High 180-914 [facility] Comment on above: Performed By: #### L 503.0106, L503.6550 #### [facility] [address] [place], [address] Vitamin B12 ser/plasOrdered By: Guicho Quezada on 08-26-2024 Cobalamin (Vitamin B12) [Mass/Vol] 1101 pg/mL High 180-914 [facility] Office Visit Reporton 2023 Office Visit Report [facility] [address] [place] [address] OFFICE VISIT Date of Service: 02/23/24 MR#: [id number] Acct: [id number] Patient: YAJAIRA BUNN Rep #: [id number] : 1945 Provider: Fidel Frias Age/Sex: 78/F Location: [facility] [facility] Status: Signed Intake Vital Signs 10/20/23 13:02 [...] Procedure performed by: Sunny Yeung Lot number: [id number] Patient Access Registrar: [employer] date: 06/26/26 Dose of injection: 1 mL Site of injection: Sub-Q Medication Given: Yes Is this a patient provided medication?: No Office Meds Prolia 60 mg/mL subcutaneous syringe Performing Provider: Guicho Quezada MD Performing Location: [facility] Administered by: Sunny Yeung RN on 02/23/24 11:33 Dose Route Admin Location Dispensed Lot Number Expiration Date NDC Man ufacturer 60 mg subcut Left Arm 1 mL [id number] 06/26/26 35125-688-02 [employer] Assessment and Plan Assessment and Plan [...] past year?: No 02/26/24 1439 Date Guicho Whitfield Signature: Date (if applicable) CC: Normal [facility] Absolute lymphocyte countOrd ered By: Juaquin Kay on 10-11-2022 Lymphocytes Auto (Unsp spec) [#/Vol] 1.28 10*3/uL 0.83-4.51 [facility] Basophil percentageOrdered B y: Juaquin Kay on 10-11-2022 Basophils/100 WBC (Bld) 0.3 % 0-1 [facility] Chloride [Moles/Vol] 108 mmol/L 98-107 [facility] Eosinophils/100 WBC (Bld) 0.0 % 0-5 [facility] Glucose [Mass/Vol] 104 mg/dL 74-106 [facility] Comment on above: Fasting Glucose resu lt from 100 to 125 mg/dL suggests IMPAIRED HOMEOSTASIS per A.D.A. criteria. Neutrophils (Bld) [#/Vol] 7.5 10*3/uL 2.0-7.7 [facility] Neutrophils/100 WBC (Bld) 76.4 % 47-70 [facility] Potassium [Moles/Vol] 4.5 mmol/L 3.5-5.1 [facility] Sodium [Moles/Vol] 135 mmol/L 136-145 [facility] WBC (Bld) [#/Vol] 9.9 10*3/uL 4.4-11.0 [facility] Blood erythrocytes count (nu mber/volume)Ordered By: Juaquin Kay on 10-11-2022 RBC (Bld) [#/Vol] 3.88 10*6/uL 4.2-5.4 [facility] Blood hemoglobin measurement (mass/volume)Ordered By: Juaquin Kay on 10-11-2022 Hemoglobin (Bld) [Mass/Vol] 12.2 g/dL 12.0-15.0 [facility] Blood lymphocytes/100 leukoc ytesOrdered By: Juaquin Kay on 10-11-2022 Lymphocytes/100 WBC (Bld) 13.0 % 19-41 [facility] Blood monocytes/100 leukocyt esOrdered By: Juaquin Kay on 10-11-2022 Monocytes/100 WBC (Bld) 9.4 % 0-10 [facility] Blood platelet mean volumeOr dered By: Juaquin Kay on 10-11-2022 Platelet mean volume (Bld) [Entitic vol] 9.9 fL 6.2-12.0 [facility] Determination of erythrocyte mean corpuscular volume (MCV)Ordered By: Juaquin Kay on 10-11-2022 MCV (RBC) [Entitic vol] 94.8 fL 81-99 [facility] Hematocrit Auto (Bld) [Volum e fraction]Ordered By: Juaquin Kay on 10-11-2022 Hematocrit (Bld) [Volume fraction] 36.8 % 37-47 [facility] - Chemistry and C hemistry - challengeOrdered By: Juaquin Kay on 10-11-2022 CO2 [Moles/Vol] 22.0 mmol/L 21.0-32.0 [facility] Urea nitrogen/Creatinine [Mass ratio] 17.9 mg/mg 10-20 [facility] - Hematology and Cell countsOrdered By: Juaquin Kay on 10-11-2022 Erythrocyte distribution width (RBC) [Entitic vol] 42.8 fL 35.1-43.9 [facility] Erythrocyte distribution width (RBC) [Ratio] 12.3 % 11.6-14.6 [facility] Immature granulocytes/100 WBC (Bld) 0.900 % 0.0-0.9 [facility] Comment on above: IG% - Immature Granu locytes (promyelocytes, myelocytes and metamyelocytes) > 1% indicates that a LEFT SHIFT is Present. MCH (RBC) [Entitic mass] 31.4 pg 27.0-32.0 [facility] Nucleated RBC/100 WBC (Bld) [Ratio] 0 % 0-5 [facility] MCHC Auto (RBC) [Mass/Vol]Or dered By: Juaquin Kay on 10-11-2022 MCHC (RBC) [Mass/Vol] 33.2 g/dL 32-36 [facility] No Panel InformationOrdered By: Juaquin Kay on 10-11-2022 Estimated GFR (MDRD) Amer 58 mL/min >60 [facility] Comment on above: GFR Calc Estimated GFR (MDRD) Non-Af Amer 48 mL/min >60 [facility] Comment on above: Non- GFR Calc Platelets bldOrdered By: Rory Kay on 10-11-2022 Platelets (Bld) [#/Vol] 300 10*3/uL 150-450 [facility] Serum or plasma calcium rodriguez urement (mass/volume)Ordered By: Juaquin Kay on 10-11-2022 Calcium [Mass/Vol] 11.2 mg/dL 8.5-10.1 [facility] Serum or plasma creatinine m easurement (mass/volume)Ordered By: Juaquin Kay on 10-11-2022 Creatinine [Mass/Vol] 1.17 mg/dL 0.55-1.02 [facility] Comment on above: The validity of the calculated GFR & GFRAA in patients over 70 years has not been determined. Clinical correlation is essential. Serum or plasma urea nitroge n measurement (mass/volume)Ordered By: Juaquin Kay on 10-11-2022 Urea nitrogen [Mass/Vol] 21 mg/dL 7-18 [facility] Thin prep Papanicolaou smear with manual screeningOrdered By: Juaquin Kay on 10-11-2022 Thin prep Papanicolaou smear with manual screening 5 5-15 [facility] Absolute lymphocyte countOrd ered By: Dr. Quezada on 03-31-2022 Lymphocytes Auto (Unsp spec) [#/Vol] 1.10 10*3/uL 0.83-4.51 [facility] Basophil percentageOrdered B y: Dr. Quezada on 03-31-2022 Basophils/100 WBC (Bld) 1.1 % 0-1 [facility] Bilirubin [Mass/Vol] 0.40 mg/dL 0.20-1.00 [facility] Comment on above: For patients on eltr ombopag therapy, use of Dimension [place] TBIL is not recommended. Chloride [Moles/Vol] 107 mmol/L 98-107 [facility] Cholesterol [Mass/Vol] 205 mg/dL <200 [facility] Comment on above: <200 mg/dL Desirable 200-240 mg/dL Borderline >240 mg/dL High Risk Eosinophils/100 WBC (Bld) 2.1 % 0-5 [facility] Glucose [Mass/Vol] 99 mg/dL 74-106 [facility] Neutrophils (Bld) [#/Vol] 3.5 10*3/uL 2.0-7.7 [facility] Neutrophils/100 WBC (Bld) 66.5 % 47-70 [facility] Potassium [Moles/Vol] 4.6 mmol/L 3.5-5.1 [facility] Protein [Mass/Vol] 7.5 g/dL 6.4-8.2 [facility] Sodium [Moles/Vol] 138 mmol/L 136-145 [facility] Triglyceride [Mass/Vol] 90 mg/dL <199 [facility] Comment on above: The drugs N-Acetylcy steine and Metamizole may falsely depress this assay.Serum Triglycerides Reference Interval Normal <150 mg/dL Borderline high 150 - 199 mg/dL High 200 - 499 mg/dL Very High > or = 500 mg/dL WBC (Bld) [#/Vol] 5.3 10*3/uL 4.4-11.0 [facility] Blood erythrocytes count (nu mber/volume)Ordered By: Dr. Quezada on 03-31-2022 RBC (Bld) [#/Vol] 3.79 10*6/uL 4.2-5.4 [facility] Blood hemoglobin measurement (mass/volume)Ordered By: Dr. Quezada on 03-31-2022 Hemoglobin (Bld) [Mass/Vol] 11.9 g/dL 12.0-15.0 [facility] Blood lymphocytes/100 leukoc ytesOrdered By: Dr. Quezada on 03-31-2022 Lymphocytes/100 WBC (Bld) 20.7 % 19-41 [facility] Blood monocytes/100 leukocyt esOrdered By: Dr. Quezada on 03-31-2022 Monocytes/100 WBC (Bld) 9.4 % 0-10 [facility] Blood platelet mean volumeOr dered By: Dr. Quezada on 03-31-2022 Platelet mean volume (Bld) [Entitic vol] 9.6 fL 6.2-12.0 [facility] Determination of erythrocyte mean corpuscular volume (MCV)Ordered By: Dr. Quezada on 03-31-2022 MCV (RBC) [Entitic vol] 95.3 fL 81-99 [facility] Hematocrit Auto (Bld) [Volum e fraction]Ordered By: Dr. Quezada on 03-31-2022 Hematocrit (Bld) [Volume fraction] 36.1 % 37-47 [facility] - Chemistry and C hemistry - challengeOrdered By: Dr. Quezada on 03-31-2022 ALP [Catalytic activity/Vol] 60 U/L 45-117 [facility] ALT [Catalytic activity/Vol] 27 U/L 13-56 [facility] CO2 [Moles/Vol] 27.0 mmol/L 21.0-32.0 [facility] Globulin (S) [Mass/Vol] 3.8 g/dL 2.2-4.2 [facility] Urea nitrogen/Creatinine [Mass ratio] 17.4 mg/mg 10-20 [facility] - Hematology and Cell countsOrdered By: Dr. Quezada on 03-31-2022 Erythrocyte distribution width (RBC) [Entitic vol] 42.4 fL 35.1-43.9 [facility] Erythrocyte distribution width (RBC) [Ratio] 12.3 % 11.6-14.6 [facility] Immature granulocytes/100 WBC (Bld) 0.200 % 0.0-0.9 [facility] Comment on above: IG% - Immature Granu locytes (promyelocytes, myelocytes and metamyelocytes) > 1% indicates that a LEFT SHIFT is Present. MCH (RBC) [Entitic mass] 31.4 pg 27.0-32.0 [facility] Nucleated RBC/100 WBC (Bld) [Ratio] 0 % 0-5 [facility] MCHC Auto (RBC) [Mass/Vol]Or dered By: Dr. Quezada on 03-31-2022 MCHC (RBC) [Mass/Vol] 33.0 g/dL 32-36 [facility] No Panel InformationOrdered By: Dr. Quezada on 03-31-2022 Estimated GFR (MDRD) Amer 63 mL/min >60 [facility] Comment on above: GFR Calc Estimated GFR (MDRD) Non-Af Amer 52 mL/min >60 [facility] Comment on above: Non- GFR Calc Parathyroid Hormone (Intact) 202.2 pg/mL 18.4-80.1 [facility] Vitamin D 25-Hydroxy 45.6 ng/mL [facility] Comment on above: Vitamin D 25(OH) Sta tus Range Deficiency <20 ng/mL (50nmol/L) Insufficiency 20 - 30 ng/mL (50 - 75 nmol/L) Sufficiency 30 - 100 ng/mL (75 - 250 nmol/L) Toxicity >100 ng/mL (>250 nmol/L) Platelets bldOrdered By: Dr. Quezada on 03-31-2022 Platelets (Bld) [#/Vol] 259 10*3/uL 150-450 [facility] Serum or plasma albumin rodriguez urement (mass/volume)Ordered By: Dr. Quezada on 03-31-2022 Albumin [Mass/Vol] 3.7 g/dL 3.2-5.0 [facility] Serum or plasma albumin/glob ulin mass ratioOrdered By: Dr. Quezada on 03-31-2022 Albumin/Globulin [Mass ratio] 1.0 {ratio} 0.9-2.4 [facility] Serum or plasma calcium rodriguez urement (mass/volume)Ordered By: Dr. Quezada on 03-31-2022 Calcium [Mass/Vol] 11.1 mg/dL 8.5-10.1 [facility] Serum or plasma cholesterol in HDL measurement (mass/volume)Ordered By: Dr. Quezada on 03-31-2022 Cholesterol in HDL [Mass/Vol] 74 mg/dL >40 [facility] Comment on above: The drugs N-Acetylcy steine and Metamizole may falsely depress this assay. Reference Range HDL <40 mg/dL Low HDL Cholesterol HDL >or= 60 mg/dL High HDL Cholesterol Serum or plasma cholesterol in VLDL measurement (mass/volume)Ordered By: Dr. Quezada on 03-31-2022 Cholesterol in VLDL [Mass/Vol] 18 mg/dL 5-40 [facility] Serum or plasma creatinine m easurement (mass/volume)Ordered By: Dr. Quezada on 03-31-2022 Creatinine [Mass/Vol] 1.09 mg/dL 0.55-1.02 [facility] Comment on above: The validity of the calculated GFR & GFRAA in patients over 70 years has not been determined. Clinical correlation is essential. Serum or plasma low density lipoprotein (LDL) cholesterol measurement (mass/volume)Ordered By: Dr. Quezada on 03-31-2022 Cholesterol in LDL [Mass/Vol] 113 mg/dL 0-130 [facility] Serum or plasma urea nitroge n measurement (mass/volume)Ordered By: Dr. Quezada on 03-31-2022 Urea nitrogen [Mass/Vol] 19 mg/dL 7-18 [facility] Thin prep Papanicolaou smear with manual screeningOrdered By: Dr. Quezada on 03-31-2022 Thin prep Papanicolaou smear with manual screening 18 U/L 15-37 [facility] Thin prep Papanicolaou smear with manual screening 4 5-15 [facility] Absolute lymphocyte counton 09-24-2021 Lymphocytes Auto (Unsp spec) [#/Vol] 1.08 10*3/uL 0.83-4.51 [facility] Work Phone: Basophil percentageon 2021 Basophils/100 WBC (Bld) 0.9 % 0-1 [facility] Work Phone: Bilirubin [Mass/Vol] 0.30 mg/dL 0.20-1.00 [facility] Work Phone: Comment on above: For patients on eltr ombopag therapy, use of Dimension [place] TBIL is not recommended. Chloride [Moles/Vol] 108 mmol/L 98-107 [facility]: Cholesterol [Mass/Vol] 175 mg/dL <200 [facility] Work Phone: Comment on above: <200 mg/dL Desirable 200-240 mg/dL Borderline >240 mg/dL High Risk Eosinophils/100 WBC (Bld) 2.9 % 0-5 [facility] Work Phone: Glucose [Mass/Vol] 99 mg/dL 74-106 [facility] Work Phone: Neutrophils (Bld) [#/Vol] 4.4 10*3/uL 2.0-7.7 [facility] Work Phone: Neutrophils/100 WBC (Bld) 67.7 % 47-70 [facility] Work Phone: Potassium [Moles/Vol] 4.5 mmol/L 3.5-5.1 [facility] Work Phone: Protein [Mass/Vol] 7.1 g/dL 6.4-8.2 [facility] Work Phone: Sodium [Moles/Vol] 138 mmol/L 136-145 [facility] Work Phone: Triglyceride [Mass/Vol] 145 mg/dL <199 [facility] Work Phone: Comment on above: The drugs N-Acetylcy steine and Metamizole may falsely depress this assay.Serum Triglycerides Reference Interval Normal <150 mg/dL Borderline high 150 - 199 mg/dL High 200 - 499 mg/dL Very High > or = 500 mg/dL WBC (Bld) [#/Vol] 6.5 10*3/uL 4.4-11.0 [facility] Work Phone: Blood erythrocytes count (nu mber/volume)on 09-24-2021 RBC (Bld) [#/Vol] 3.64 10*6/uL 4.2-5.4 [facility] Work Phone: Blood hemoglobin measurement (mass/volume)on 09-24-2021 Hemoglobin (Bld) [Mass/Vol] 11.3 g/dL 12.0-15.0 [facility] Work Phone: Blood lymphocytes/100 leukoc yteson 09-24-2021 Lymphocytes/100 WBC (Bld) 16.7 % 19-41 [facility] Work Phone: Blood monocytes/100 leukocyt eson 09-24-2021 Monocytes/100 WBC (Bld) 11.6 % 0-10 [facility] Work Phone: Blood platelet mean volumeon 09-24-2021 Platelet mean volume (Bld) [Entitic vol] 9.9 fL 6.2-12.0 [facility] Work Phone: Determination of erythrocyte mean corpuscular volume (MCV)on 09-24-2021 MCV (RBC) [Entitic vol] 94.2 fL 81-99 [facility] Work Phone: Hematocrit Auto (Bld) [Volum e fraction]on 09-24-2021 Hematocrit (Bld) [Volume fraction] 34.3 % 37-47 [facility] Work Phone: Laboratory - Chemistry and C hemistry - challengeon 09-24-2021 ALP [Catalytic activity/Vol] 72 U/L 45-117 [facility] Work Phone: ALT [Catalytic activity/Vol] 26 U/L 13-56 [facility] Work Phone: CO2 [Moles/Vol] 25.0 mmol/L 21.0-32.0 [facility] Work Phone: Globulin (S) [Mass/Vol] 3.6 g/dL 2.2-4.2 [facility] Work Phone: Urea nitrogen/Creatinine [Mass ratio] 17.1 mg/mg 10-20 [facility] Work Phone: Laboratory - Hematology and Cell countson 09-24-2021 Erythrocyte distribution width (RBC) [Entitic vol] 42.4 fL 35.1-43.9 [facility] Work Phone: Erythrocyte distribution width (RBC) [Ratio] 12.3 % 11.6-14.6 [facility] Work Phone: [phone] Immature granulocytes/100 WBC (Bld) 0.200 % 0.0-0.9 [facility] Work Phone: Comment on above: IG% - Immature Granu locytes (promyelocytes, myelocytes and metamyelocytes) > 1% indicates that a LEFT SHIFT is Present. MCH (RBC) [Entitic mass] 31.0 pg 27.0-32.0 [facility] Work Phone: Nucleated RBC/100 WBC (Bld) [Ratio] 0 % 0-5 [facility] Work Phone: [phone] MCHC Auto (RBC) [Mass/Vol]on 09-24-2021 MCHC (RBC) [Mass/Vol] 32.9 g/dL 32-36 [facility] Work Phone: No Panel Informationon 09-24 Estimated GFR (MDRD) Amer 58 mL/min >60 [facility] Work Phone: [phone] Comment on above: GFR Calc Estimated GFR (MDRD) Non-Af Amer 48 mL/min >60 [facility] Work Phone: Comment on above: Non- GFR Calc Platelets bldon 09-24-2021 Platelets (Bld) [#/Vol] 287 10*3/uL 150-450 [facility] Work Phone: [phone] Serum or plasma albumin rodriguez urement (mass/volume)on 09-24-2021 Albumin [Mass/Vol] 3.5 g/dL 3.2-5.0 [facility] Work Phone: [phone] Serum or plasma albumin/glob ulin mass ratioon 09-24-2021 Albumin/Globulin [Mass ratio] 1.0 {ratio} 0.9-2.4 [facility] Work Phone: [phone] Serum or plasma calcium rodriguez urement (mass/volume)on 09-24-2021 Calcium [Mass/Vol] 10.9 mg/dL 8.5-10.1 [facility] Work Phone: Serum or plasma cholesterol in HDL measurement (mass/volume)on 09-24-2021 Cholesterol in HDL [Mass/Vol] 57 mg/dL >40 [facility] Work Phone: Comment on above: The drugs N-Acetylcy steine and Metamizole may falsely depress this assay. Reference Range HDL <40 mg/dL Low HDL Cholesterol HDL >or= 60 mg/dL High HDL Cholesterol Serum or plasma cholesterol in VLDL measurement (mass/volume)on 09-24-2021 Cholesterol in VLDL [Mass/Vol] 29 mg/dL 5-40 [facility] Work Phone: Serum or plasma creatinine m easurement (mass/volume)on 09-24-2021 Creatinine [Mass/Vol] 1.17 mg/dL 0.55-1.02 [facility] Work Phone: Comment on above: The validity of the calculated GFR & GFRAA in patients over 70 years has not been determined. Clinical correlation is essential. Serum or plasma low density lipoprotein (LDL) cholesterol measurement (mass/volume)on 09-24-2021 Cholesterol in LDL [Mass/Vol] 89 mg/dL 0-130 [facility] Work Phone: Serum or plasma urea nitroge n measurement (mass/volume)on 09-24-2021 Urea nitrogen [Mass/Vol] 20 mg/dL 7-18 [facility] Work Phone: [phone] Thin prep Papanicolaou smear with manual screeningon 09-24-2021 Thin prep Papanicolaou smear with manual screening 19 U/L 15-37 [facility] Work Phone: [phone] Thin prep Papanicolaou smear with manual screening 5 5-15 [facility] Work Phone: [phone] .Auto Diffon 09-18-2018 Ammonia (P) [Mass/Vol] 1.20 10 3/mcL High 0.15-1.00 [facility] ([place]) Comment on above: Performed By: #### B MP, GFR #### [address] [address] Basophils (Bld) [#/Vol] 0.00 10 3/mcL Normal 0.00-0.19 [facility] ([place] Comment on above: Performed By: #### B MP, GFR #### [address] [address] Basophils/100 WBC (Bld) 0.3 % Normal 0.0-2.5 A [facility] ([place]) Comment on above: Performed By: #### B MP, GFR #### [address] [address] Eosinophils (Bld) [#/Vol] 0.00 10 3/mcL Normal 0.00-0.40 [facility] ([place]) Comment on above: Performed By: #### B MP, GFR #### [address] [address] Eosinophils/100 WBC (Bld) 0.1 % Normal 0.0-7.0 [facility] ([place]) Comment on above: Performed By: #### B MP, GFR #### [address] [address] Lymphocytes (Bld) [#/Vol] 1.20 10 3/mcL Normal 0.77-3.85 [facility] ([place]) Comment on above: Performed By: #### B MP, GFR #### [address] [address] Lymphocytes/100 WBC (Bld) 11.8 % Normal 10.0-50.0 [facility] ([place]) Comment on above: Performed By: #### B MP, GFR #### [address] [address] Monocytes/100 WBC (Bld) 11.7 % Normal 1.7-13.0 A [facility] ([place]) Comment on above: Performed By: #### B MP, GFR #### [address] [address] Neutrophils/100 WBC (Bld) 76.1 % Normal 37.0-80.0 [facility] ([place]) Comment on above: Performed By: #### B MP, GFR #### [address] [address] .GFRon 09-18-2018 GFR Non- 54 ml/min/1.73sqm Normal [facility] ([place]) Comment on above: Result Comment: [...] Performed By: #### B MP, GFR #### [address] [address] GFR 65 ml/min/1.73sqm Normal [facility] ([place]) Comment on above: Result Comment: [...] Performed By: #### B MP, GFR #### [address] [address] .NEUABSon 09-18-2018 Neutrophils (Bld) [#/Vol] 8.00 10 3/mcL High 2.85-6.16 [facility] ([place]) Comment on above: Performed By: #### B MP, GFR #### [address] [address] BMPon 09-18-2018 Calcium [Mass/Vol] 9.8 mg/dL Normal 8.4-10.2 [facility] ([place]) Comment on above: Performed By: #### B MP, GFR #### [address] [address] Chloride [Moles/Vol] 97 mmol/L Low 98-107 [facility] ([place]) Comment on above: Performed By: #### B MP, GFR #### [address] [address] CO2 [Moles/Vol] 29 mmol/L Normal 23-31 [facility] ([place] Comment on above: Performed By: #### B MP, GFR #### [address] [address] Creatinine [Mass/Vol] 1.02 mg/dL Normal 0.55-1.02 [facility] ([place]) Comment on above: Performed By: #### B MP, GFR #### [address] [address] Electrolyte Balance 5.0 mEq/L Normal [facility] ([place]) Comment on above: Performed By: #### B MP, GFR #### [address] [address] Glucose [Mass/Vol] 113 mg/dL High 83-110 [facility] ([place] Comment on above: Performed By: #### B MP, GFR #### [address] [address] Potassium [Moles/Vol] 4.4 mmol/L Normal 3.5-5.1 [facility] ([place] Comment on above: Performed By: #### B MP, GFR #### [address] [address] Sodium [Moles/Vol] 131 mmol/L Low 136-145 [facility] ([place] Comment on above: Performed By: #### B MP, GFR #### [address] [address] Urea nitrogen [Mass/Vol] 19 mg/dL High 7-18 [facility] ([place] Comment on above: Performed By: #### B MP, GFR #### [address] [address] Urea nitrogen/Creatinine [Mass ratio] 19 ratio Normal 7-27 [facility] ([place] Comment on above: Performed By: #### B MP, GFR #### [address] [address] CBCon 09-18-2018 Erythrocyte distribution width (RBC) [Ratio] 12.7 % Normal 11.5-14.5 [facility] ([place] Comment on above: Performed By: #### C JR RIDER, ANEU #### [place] [address] #### BMP, GFR #### [address] [address] Hematocrit (Bld) [Volume fraction] 26.2 % Low 37.0-47.0 [facility] ([place] Comment on above: Performed By: #### C BCEBENEZERIFF, ANEU #### [address] [address] #### BMP, GFR #### [place] [address] Hemoglobin (Bld) [Mass/Vol] 9.4 G/dL Low 12.0-16.0 [facility] ([place] Comment on above: Performed By: #### EBENEZER ABDULLAHIIFF, ANEU #### [place] [address] #### BMP, GFR #### [address] [address] MCH (RBC) [Entitic mass] 32.7 pg High 27.0-31.2 [facility] ([place] Comment on above: Performed By: #### C BC, ADIFF, ANEU #### [address] [address] #### BMP, GFR #### [facility] [address] [place], [place] [address] MCHC (RBC) [Mass/Vol] 35.7 G/dL Normal 33.0-37.0 [facility] ([place] Comment on above: Performed By: #### C JR RIDER, ANEU #### [address] [address] #### BMP, GFR #### [address] [address] MCV (RBC) [Entitic vol] 91.5 fL Normal 80.0-94.0 A [facility] ([place]) Comment on above: Performed By: #### C BC, JR, ANEU #### [address] [address] #### BMP, GFR #### [address] [address] Platelet mean volume (Bld) [Entitic vol] 8.6 fL Normal 7.4-10.4 [facility] ([place] Comment on above: Performed By: #### C JR RIDER, ANEU #### [place] [address] #### BMP, GFR #### [address] [address] Platelets (Bld) [#/Vol] 218 10 3/mcL Normal 130-400 [facility] ([place] Comment on above: Performed By: #### C JR RIDER, ANEU #### [place] [address] #### BMP, GFR #### [address] [address] RBC (Bld) [#/Vol] 2.86 10 6/mcL Low 4.20-5.40 [facility] ([place] Comment on above: Performed By: #### C BC, JR, ANEU #### [place] [address] #### BMP, GFR #### [address] [address] WBC (Bld) [#/Vol] 10.50 10 3/mcL Normal 4.60-10.80 [facility] ([place] Comment on above: Performed By: #### C BC, ADIFF, ANEU #### [place] [address] #### BMP, GFR #### [address] [address] NAon 09-18-2018 Sodium [Moles/Vol] 130 mmol/L Low 136-145 [facility] ([place] Comment on above: Performed By: #### B MP, GFR #### [address] [address] .GFRon 09-17-2018 GFR Non- 50 ml/min/1.73sqm Normal [facility] ([place] Comment on above: Result Comment: GFR Population [...] Performed By: #### B MP, GFR #### [address] [address] GFR 60 ml/min/1.73sqm Normal [facility] ([place] Comment on above: Result Comment: GFR Population [...] Performed By: #### B MP, GFR #### [address] [address] BMPon 09-17-2018 Calcium [Mass/Vol] 10.1 mg/dL Normal 8.4-10.2 [facility] ([place] Comment on above: Performed By: #### B MP, GFR #### [address] [address] Chloride [Moles/Vol] 101 mmol/L Normal 98-107 [facility] ([place] Comment on above: Performed By: #### B MP, GFR #### [address] [address] CO2 [Moles/Vol] 25 mmol/L Normal 23-31 [facility] ([place] Comment on above: Performed By: #### B MP, GFR #### [place] [address] Creatinine [Mass/Vol] 1.09 mg/dL High 0.55-1.02 [facility] ([place] Comment on above: Performed By: #### B MP, GFR #### [address] [address] Electrolyte Balance 10.0 mEq/L Normal [facility] ([place]) Comment on above: Performed By: #### B MP, GFR #### [address] [address] Glucose [Mass/Vol] 119 mg/dL High 83-110 [facility] ([place] Comment on above: Performed By: #### B MP, GFR #### [address] [address] Potassium [Moles/Vol] 4.5 mmol/L Normal 3.5-5.1 [facility] ([place] Comment on above: Performed By: #### B MP, GFR #### [place] [id number] Sodium [Moles/Vol] 136 mmol/L Normal 136-145 [facility] ([place] Comment on above: Performed By: #### B MP, GFR #### [facility] [address] [place] [address] Urea nitrogen [Mass/Vol] 21 mg/dL High - [facility] ([place]) Comment on above: Performed By: #### B MP, GFR #### [facility] [address] [place] [address] Urea nitrogen/Creatinine [Mass ratio] 19 ratio Normal 09-22 [facility] ([place] Comment on above: Performed By: #### B MP, GFR #### [facility] [address] [place] [address] XR KNEE 1 OR 2 VIEWS RIGHTon [...] PM Sign Date: 09/17/2018 1:49:05 PM Normal [facility] ([place]) .Auto Diffon 08-27-2018 Ammonia (P) [Mass/Vol] 0.80 10 3/mcL Normal 0.15-1.00 [facility] ([place] Comment on above: Performed By: #### C JR RIDER ANEU #### [address] [address] Basophils (Bld) [#/Vol] 0.10 10 3/mcL Normal 0.00-0.19 [facility] ([place] Comment on above: Performed By: #### JR ABDULLAHI ANEU #### [place] [address] [address] Basophils/100 WBC (Bld) 0.9 % Normal 0.0-2.5 A [facility] ([place]) Comment on above: Performed By: #### C JR RIDER ANEU #### [address] [address] Eosinophils (Bld) [#/Vol] 0.10 10 3/mcL Normal 0.00-0.40 [facility] ([place]) Comment on above: Performed By: #### C JR RIDER, ANEU #### [address] [address] Eosinophils/100 WBC (Bld) 1.6 % Normal 0.0-7.0 [facility] ([place]) Comment on above: Performed By: #### C JR RIDER, ANEU #### [address] [address] Lymphocytes (Bld) [#/Vol] 2.10 10 3/mcL Normal 0.77-3.85 [facility] ([place]) Comment on above: Performed By: #### JR ABDULLAHI, ANEU #### [place] [address] [address] Lymphocytes/100 WBC (Bld) 24.4 % Normal 10.0-50.0 [facility] ([place]) Comment on above: Performed By: #### JR ABDULLAHI, ANEU #### [address] [address] Monocytes/100 WBC (Bld) 8.9 % Normal 1.7-13.0 [facility] ([place]) Comment on above: Performed By: #### JR ABDULLAHI, ANEU #### [place] [address] [address] Neutrophils/100 WBC (Bld) 64.2 % Normal 37.0-80.0 [facility] ([place]) Comment on above: Performed By: #### JR ABDULLAHI, ANEU #### [place] [address] [address] .GFRon 08-27-2018 GFR 66 ml/min/1.73sqm Normal [facility] ([place]) Comment on above: Result Comment: [...] Performed By: #### B MP, GFR #### [address] [address] GFR Non- 54 ml/min/1.73sqm Normal [facility] ([place] Comment on above: Result Comment: GFR Population [...] Performed By: #### B MP, GFR #### [address] [address] .NEUABSon 08-27-2018 Neutrophils (Bld) [#/Vol] 5.50 10 3/mcL Normal 2.85-6.16 [facility] ([place] Comment on above: Performed By: #### Estephania BC, JR, ANEU #### [place] [address] [address] BMPon 08-27-2018 Calcium [Mass/Vol] 11.6 mg/dL High 8.4-10.2 [facility] ([place] Comment on above: Performed By: #### Yessica MP, GFR #### [address] [address] Chloride [Moles/Vol] 100 mmol/L Normal 98-107 [facility] ([place] Comment on above: Performed By: #### B MP, GFR #### [address] [address] CO2 [Moles/Vol] 30 mmol/L Normal 23-31 [facility] ([place] Comment on above: Performed By: #### B MP, GFR #### [address] [address] Creatinine [Mass/Vol] 1.01 mg/dL Normal 0.55-1.02 [facility] ([place] Comment on above: Performed By: #### B MP, GFR #### [address] [address] Electrolyte Balance 9.0 mEq/L Normal [facility] ([place]) Comment on above: Performed By: #### B MP, GFR #### [address] [address] Glucose [Mass/Vol] 97 mg/dL Normal 83-110 [facility] ([place] Comment on above: Performed By: #### B MP, GFR #### [address] [address] Potassium [Moles/Vol] 4.1 mmol/L Normal 3.5-5.1 [facility] ([place] Comment on above: Performed By: #### B MP, GFR #### [address] [address] Sodium [Moles/Vol] 139 mmol/L Normal 136-145 [facility] ([place] Comment on above: Performed By: #### B MP, GFR #### [address] [address] Urea nitrogen [Mass/Vol] 19 mg/dL High 7-18 [facility] ([place] Comment on above: Performed By: #### B MP, GFR #### [address] [address] Urea nitrogen/Creatinine [Mass ratio] 19 ratio Normal 7-27 [facility] ([place] Comment on above: Performed By: #### B MP, GFR #### [place] [id number] [address] [place] [id number] [place] [address] 08-27-2018 Erythrocyte distribution width (RBC) [Ratio] 12.6 % Normal 11.5-14.5 [facility] ([place] Comment on above: Performed By: #### C JR RIDER, ANEU #### [address] [address] Hematocrit (Bld) [Volume fraction] 35.3 % Low 37.0-47.0 [facility] ([place] Comment on above: Performed By: #### JR ABDULLAHI, ANEU #### [address] [address] Hemoglobin (Bld) [Mass/Vol] 12.5 G/dL Normal 12.0-16.0 [facility] ([place] Comment on above: Performed By: #### JR ABDULLAHI, ANEU #### [address] [address] MCH (RBC) [Entitic mass] 32.2 pg High 27.0-31.2 [facility] ([place] Comment on above: Performed By: #### JR ABDULLAHI, ANEU #### [address] [address] MCHC (RBC) [Mass/Vol] 35.3 G/dL Normal 33.0-37.0 [facility] ([place] Comment on above: Performed By: #### JR ABDULLAHI, ANEU #### [place] [address] [address] MCV (RBC) [Entitic vol] 91.2 fL Normal 80.0-94.0 A [facility] ([place]) Comment on above: Performed By: #### JR ABDULLAHI, ANEU #### [place] [address] [address] Platelet mean volume (Bld) [Entitic vol] 8.2 fL Normal 7.4-10.4 [facility] ([place] Comment on above: Performed By: #### C BC, ADIFF, ANEU #### [facility] [place] [address] [place], [place] [address] Platelets (Bld) [#/Vol] 323 10 3/mcL Normal 130-400 [facility] ([place] Comment on above: Performed By: #### C JR RIDER, ANEU #### [facility] [address] [place], [place] [address] RBC (Bld) [#/Vol] 3.87 10 6/mcL Low 4.20-5.40 [facility] ([place]) Comment on above: Performed By: #### C JR RIDER, ANEU #### [place] [address] [place], [place] [address] WBC (Bld) [#/Vol] 8.60 10 3/mcL Normal 4.60-10.80 [facility] ([place] Comment on above: Performed By: #### C JR RIDER, ANEU #### [place] [id number] [place], [place] [address] CT KNEE W/O CONTRAST RIGHTon 08-27-2018 CT [...] PM Sign Date: 08/27/2018 3:14:38 PM Normal [facility] ([place]) [place] 05-18-2017 CN Office Visit (UCWSTR) YAJAIRA BUNN ([id number]) 1945 FDate Time Provider Department05/18/17 11:00 AM RAMBO SAUCEDO [facility] During your visit today, we recorded [...] 05/18/2017 11:30 AM >> HOA DORSEY LPN [facility] May 18, 2017 11:30 AM Not [...] Status:Closed by RAMBO SAUCEDO MD on 05/18/17 [facility] PROGRESSon 05-18-2017 PROGRESS HNO ID: [id number]: Rambo Rojaservice: (none)Author Type: PhysicianType: Progress NotesFiled: [...] chest pain, shortness of breath.Rambo Saucedo MD Normal [facility] Vital Signs Date Time Vital Sign Value Performing Clinician Faci hannah 11-20-2024 12:58-0400 Body height 152.4 cm Se Bryan MD Work Phone: [facility] 11-20-2024 12:58-0400 Body mass index (BMI) [Ratio] 33.5 kg/m2 Se Bryan MD Work Phone: [facility] 11-20-2024 12:58-0400 Body temperature 97.6 [degF] Se Bryan MD Work Phone: [facility] 11-20-2024 12:58-0400 Body weight 78.01 kg Se Bryan MD Work Phone: [facility] 11-20-2024 12:58-0400 Diastolic blood pressure 90 mm[Hg] Se Bryan MD Work Phone: [facility] 11-20-2024 12:58-0400 Heart rate 72 /min Se Bryan MD Work Phone: [facility] 11-20-2024 12:58-0400 Respiratory rate 18 /min Se Bryan MD Work Phone: [facility] 11-20-2024 12:58-0400 SaO2% (BldA) [Mass fraction] 99 % Se Bryan MD Work Phone: [facility] 11-20-2024 12:58-0400 Systolic blood pressure 170 mm[Hg] Se Bryan MD Work Phone: [facility] 10-24-2024 15:21-0400 Body height 152.4 cm Se Bryan MD Work Phone: [facility] 10-24-2024 15:21-0400 Body mass index (BMI) [Ratio] 33.4 kg/m2 Se Bryan MD Work Phone: [facility] 10-24-2024 15:21-0400 Body weight 77.56 kg Se Bryan MD Work Phone: [facility] 10-24-2024 15:21-0400 Diastolic blood pressure 76 mm[Hg] Se Bryan MD Work Phone: [facility] 10-24-2024 15:21-0400 Heart rate 82 /min Se Bryan MD Work Phone: [facility] 10-24-2024 15:21-0400 SaO2% (BldA) [Mass fraction] 98 % Se Bryan MD Work Phone: [facility] 10-24-2024 15:21-0400 Systolic blood pressure 151 mm[Hg] Se Bryan MD Work Phone: [facility] 08-28-2024 21:00-0400 Diastolic blood pressure 70 mm[Hg] Se Bryan MD Work Phone: [facility] 08-28-2024 21:00-0400 Heart rate 79 /min Se Bryan MD Work Phone: [facility] 08-28-2024 21:00-0400 Respiratory rate 22 /min Se Bryan MD Work Phone: [facility] 08-28-2024 21:00-0400 SaO2% (BldA) [Mass fraction] 99 % Se Bryan MD Work Phone: [facility] 08-28-2024 21:00-0400 Systolic blood pressure 158 mm[Hg] Se Bryan MD Work Phone: [facility] 08-28-2024 20:17-0400 Body temperature 97.7 [degF] Se Bryan MD Work Phone: [facility] 08-28-2024 17:16-0400 Body height 152.4 cm Se Bryan MD Work Phone: [facility] 08-28-2024 17:16-0400 Body mass index (BMI) [Ratio] 32.8 kg/m2 Se Bryan MD Work Phone: [facility] 08-28-2024 17:16-0400 Body weight 76.24 kg Se Bryan MD Work Phone: [facility] 08-26-2024 13:49-0400 Body height 152.4 cm Se Bryan MD Work Phone: [facility] 08-26-2024 13:49-0400 Body mass index (BMI) [Ratio] 33 kg/m2 Se Bryan MD Work Phone: [facility] 08-26-2024 13:49-0400 Body weight 76.65 kg Se Bryan MD Work Phone: [facility] 08-26-2024 13:49-0400 Diastolic blood pressure 80 mm[Hg] Se Bryan MD Work Phone: [facility] 08-26-2024 13:49-0400 Heart rate 85 /min Se Bryan MD Work Phone: [facility] 08-26-2024 13:49-0400 SaO2% (BldA) [Mass fraction] 96 % Se Bryan MD Work Phone: [facility] 08-26-2024 13:49-0400 Systolic blood pressure 144 mm[Hg] Se Bryan MD Work Phone: [facility] 02-22-2023 13:06-0500 Body height 152.4 cm [facility] 02-22-2023 13:06-0500 Body mass index (BMI) [Ratio] 31.2 kg/m2 [facility] 02-22-2023 13:06-0500 Body temperature 97.3 [degF] [facility] 02-22-2023 13:06-0500 Body weight 72.57 kg [facility] 02-22-2023 13:06-0500 Diastolic blood pressure 62 mm[Hg] [facility] 02-22-2023 13:06-0500 Heart rate 83 /min [facility] 02-22-2023 13:06-0500 Respiratory rate 16 /min [facility] 02-22-2023 13:06-0500 SaO2% (BldA) [Mass fraction] 97 % [facility] 02-22-2023 13:06-0500 Systolic blood pressure 157 mm[Hg] [facility] 10-20-2022 11:16-0400 Body height 152.[address] Danny Jeronimo Work Phone: [facility] 10-20-2022 11:16-0400 Body mass index (BMI) [Ratio] 33 kg/m2 Dr. Danny Jeronimo Work Phone: [facility] 10-20-2022 11:16-0400 Body temperature 98.3 [degF] Dr. Danny Jeronimo Work Phone: [facility] 10-20-2022 11:16-0400 Body weight 76.[address] Danny Jeronimo Work Phone: [facility] 10-20-2022 11:16-0400 Diastolic blood pressure 70 mm[Hg] Dr. Danny Jeronimo Work Phone: [facility] 10-20-2022 11:16-0400 Heart rate 74 /min Dr. Danny Jeronimo Work Phone: [facility] 10-20-2022 11:16-0400 Respiratory rate 18 /min Dr. Danny Jeronimo Work Phone: [facility] 10-20-2022 11:16-0400 SaO2% (BldA) [Mass fraction] 98 % Dr. Danny Jeronimo Work Phone: [facility] 10-20-2022 11:16-0400 Systolic blood pressure 146 mm[Hg] Dr. Danny Jeronimo Work Phone: [facility] 08-24-2022 12:54-0400 Body height 152.4 cm [facility] 08-24-2022 12:54-0400 Body mass index (BMI) [Ratio] 32.2 kg/m2 [facility] 08-24-2022 12:54-0400 Body temperature 97.9 [degF] [facility] 08-24-2022 12:54-0400 Body weight 74.84 kg [facility] 08-24-2022 12:54-0400 Diastolic blood pressure 6 mm[Hg] [facility] 08-24-2022 12:54-0400 Heart rate 76 /min [facility] 08-24-2022 12:54-0400 Respiratory rate 16 /min [facility] 08-24-2022 12:54-0400 SaO2% (BldA) [Mass fraction] 96 % [facility] 08-24-2022 12:54-0400 Systolic blood pressure 156 mm[Hg] [facility] 02-23-2022 12:56-0500 Body height 152.4 cm [facility] 02-23-2022 12:56-0500 Body mass index (BMI) [Ratio] 32.2 kg/m2 [facility] 02-23-2022 12:56-0500 Body temperature 97 [degF] [facility] 02-23-2022 12:56-0500 Body weight 74.84 kg [facility] 02-23-2022 12:56-0500 Diastolic blood pressure 54 mm[Hg] [facility] 02-23-2022 12:56-0500 Heart rate 84 /min [facility] 02-23-2022 12:56-0500 Respiratory rate 16 /min [facility] 02-23-2022 12:56-0500 SaO2% (BldA) [Mass fraction] 96 % [facility] 02-23-2022 12:56-0500 Systolic blood pressure 144 mm[Hg] [facility] 10-26-2021 13:27-0400 Body height 152.[address] Jenaro Loo Work Phone: [facility] Work Phone: 10-22-2021 11:34-0400 Body mass index (BMI) [Ratio] 32.9 kg/m2 Dr. Jenaro Loo Work Phone: [facility] Work Phone: 10-22-2021 11:34-0400 Body temperature 96.6 [degF] Dr. Jenaro Loo Work Phone: [facility] Work Phone: 10-22-2021 11:34-0400 Body weight 76.[address] Jenaro Loo Work Phone: [facility] Work Phone: 10-22-2021 11:34-0400 Diastolic blood pressure 69 mm[Hg] Dr. Jenaro Loo Work Phone: [facility] Work Phone: 10-22-2021 11:34-0400 Heart rate 83 /min Dr. Jenaro Loo Work Phone: [facility] Work Phone: 10-22-2021 11:34-0400 Respiratory rate 16 /min Dr. Jenaro Loo Work Phone: [facility] Work Phone: 10-22-2021 11:34-0400 SaO2% (BldA) [Mass fraction] 93 % Dr. Jenaro Loo Work Phone: [facility] Work Phone: 10-22-2021 11:34-0400 Systolic blood pressure 123 mm[Hg] Dr. Jenaro Loo Work Phone: [facility] Work Phone: 08-18-2021 12:48-0400 Body height 152.4 cm [facility] Work Phone: 08-18-2021 12:48-0400 Body mass index (BMI) [Ratio] 31.2 kg/m2 [facility] Work Phone: 08-18-2021 12:48-0400 Body temperature 97.9 [degF] [facility] Work Phone: 08-18-2021 12:48-0400 Body weight 72.57 kg [facility] Work Phone: 08-18-2021 12:48-0400 Diastolic blood pressure 54 mm[Hg] [facility] Work Phone: 08-18-2021 12:48-0400 Heart rate 79 /min [facility] Work Phone: 08-18-2021 12:48-0400 Respiratory rate 14 /min [facility] Work Phone: 08-18-2021 12:48-0400 SaO2% (BldA) [Mass fraction] 98 % [facility] Work Phone: 08-18-2021 [id number] Systolic blood pressure 132 mm[Hg] [facility] Work Phone: Encounters Encounter Date Encounter Type Care Provider Facility Start: 01-06-2025 ambulatory Je Burnett Facility: [facility] Start: 01-02-2025 Encounter for other preprocedural examination Je Burnett [facility] Start: 01-01-2025 ambulatory Se Randi Facility:[facility] Start: 01-01-2025 End: 01-02-2025 Evaluation and management of inpatient Tyroneelva Naik Facility:[facility] Start: 01-01-2025 ambulatory Kristie Wortham Facility :[facility] Start: 12-20-2024 ambulatory Je Bannerparth Facility: [facility] Start: 12-16-2024 End: 12-16-2024 ambulatory [facility] Facility:[facility] Start: 12-11-2024 End: 12-11-2024 ambulatory Chalmary [facility] Facility:[facility] Start: 12-03-2024 End: 12-03-2024 ambulatory [facility] Facility:[facility] Start: 11-20-2024 End: 11-20-[address] Je Burnett MD -[facility] Work Phone: Start: 11-20-2024 End: 11-20-2024 ambulatory Se Bryan MD Work Phone: -[facility] Start: 11-15-2024 End: 11-15-2024 ambulatory Se Bryan MD Work Phone: -Laboratory Start: 11-15-2024 End: 11-15-[address] Guicho Quezada MD -Laboratory Work Phone: Start: 11-15-2024 End: 11-15-2024 ambulatory Kristie Simon Facility:[facility] Start: 11-05-2024 End: 11-05-2024 ambulatory Se Bryan MD Work Phone: -Nuclear Medicine [facility] Start: 11-05-2024 End: 11-05-2024 Patient encounter procedure Kristie Montes LEGAL BILLING ANALYSTMike -Nuclear Medicine [facility] Work Phone: Start: 11-04-2024 End: 11-05-2024 ambulatory Se Bryan MD Work Phone: -Ultrasound [facility] Start: 11-04-2024 End: 11-04-[address] Guicho Quezada MD -Ultrasound [facility] Work Phone: Start: 11-04-2024 End: 11-04-2024 ambulatory Chalon Randi Facility:[facility] Start: 10-24-2024 End: 10-24-[address] Guicho Quezada MD -[facility] Work Phone: Start: 10-24-2024 End: 10-24-2024 ambulatory Se Bryan MD Work Phone: -[facility] Start: 10-11-2024 End: 10-11-2024 ambulatory Se Bryan MD Work Phone: -Laboratory [place] Start: 10-11-2024 End: 10-11-[address] Guicho Quezada MD -Laboratory [place] Work Phone: Start: 10-11-2024 End: 10-11-2024 ambulatory Chalon Randi Facility:[facility] Start: 08-28-2024 End: 08-28-2024 Emergency department patient visit Se Bryan MD Work Phone: -Emergency Department Work Phone: Start: 08-26-2024 End: 08-26-[address] Guicho Quezada MD -[facility] Work Phone: Start: 08-26-2024 End: 08-26-2024 ambulatory Se Bryan MD Work Phone: -[facility] Start: 08-26-2024 End: 08-26-2024 ambulatory Guicho Quezada Facility:[facility] Start: 02-23-2024 End: 02-23-2024 ambulatory Chalon Randi Facility:[facility] Start: 06-20-2023 Non-patient / Non-visit DO Gianluca Singleton Work Phone: [facility] Start: 06-20-2023 End: 06-20-2023 ambulatory DO Katie Singleton Work Phone: [facility] Work Phone: Start: 06-20-2023 End: 06-20-2023 Patient encounter procedure DO Katie Singleton Work Phone: [facility]-Pulmonary Services/Neurology Work Phone: Start: 04-11-2023 End: 04-11-2023 Patient encounter procedure DO Katie Singleton Work Phone: [facility] Work Phone: Start: 02-22-2023 End: 02-22-2023 ambulatory [facility] Work Phone: Start: 02-22-2023 End: 02-22-2023 Patient encounter procedure [facility]-Medical Out Work Phone: Start: 12-05-2022 End: 12-05-[address] Danny Jeronimo Work Phone: [facility] Work Phone: Start: 12-05-2022 End: 12-05-[address] Danny Jeronimo Work Phone: [facility]-Outpatient Breast Imaging Work Phone: Start: 10-20-2022 End: 10-20-[address] Danny Jeronimo Work Phone: [facility] Work Phone: Start: 10-11-2022 End: 10-11-[address] Danny Jeronimo Work Phone: [facility] Work Phone: Start: 10-11-2022 End: 10-11-[address] Danny Jeronimo Work Phone: [facility]-Laboratory Work Phone: Start: 09-28-2022 Non-patient / Non-visit Dr. Gricelda Jeronimo Work Phone: [facility] Start: 09-28-2022 End: 09-28-[address] Danny Jeronimo Work Phone: [facility] Work Phone: Start: 09-28-2022 End: 09-28-[address] Danny Jeronimo Work Phone: [facility]-Pulmonary Services/Neurology Work Phone: Start: 08-24-2022 End: 08-24-2022 ambulatory [facility] Work Phone: Start: 08-24-2022 End: 08-24-2022 Patient encounter procedure [facility]-Medical Out Work Phone: Start: 03-31-2022 End: 03-31-2022 ambulatory [facility] Work Phone: Start: 03-31-2022 End: 03-31-2022 Patient encounter procedure [facility] Start: 02-23-2022 End: 02-23-2022 ambulatory [facility] Work Phone: Start: 02-23-2022 End: 02-23-2022 Patient encounter procedure [facility]-Medical Out Start: 10-26-2021 End: 10-26-[address] Jenaro Loo Work Phone: [facility] Work Phone: Start: 10-26-2021 End: 10-26-[address] Jenaro Loo Work Phone: [facility]-Outpatient Bone Densitometry Start: 10-22-2021 End: 10-22-[address] Jenaro Loo Work Phone: [facility] Start: 09-24-2021 End: 09-24-2021 Patient encounter procedure [facility]-Laboratory, Eduardo Start: 08-18-2021 End: 08-18-2021 Patient encounter procedure [facility]-Medical Out Start: 05-18-2017 End: 05-18-2017 Ambulatory [facility] Procedures Date Procedure Procedure Detail [...] (>250 nmol/L) Start: 12-05-2022 Screening mammography Start: 10-26-2021 Dual energy X-ray absorptiometry Dr. Jenaro Loo Work Phone: Start: 10-26-2021 Screening mammography German Loo Work Phone: Plan of Treatment Date Care Activity Detail Author Start: 12-05-2022 Screening mammography SCRN MAMM (CAD)W/OMEGA BILAT [facility] Basic metabolic 2008 panel with ionized calcium - Serum or Plasma [facility] Cobalamin (Vitamin B 12) [Mass/volume] in Serum or Plasma [facility] Ferritin [Mass/volum e] in Serum or Plasma [facility] Patient Education Hypercalcemia Dc [facility] Work Phone: Vitamin D, 25-hydrox y measurement [facility] Work Phone: Vitamin D, 25-hydrox y measurement [facility] Work Phone: [facility] Immunizations Immunization Date Immunization Notes Care Provider Fa cili 01-14-2021 Covmi (Moderna) [facility] 05-25-2020 [facility] (Moderna) [facility] 04-27-2020 [facility] Payers Date Payer Category Payer Self-pay [id number] 2024 Unknown [id number] Medicare [id number] Unknown [id number] 2.16.8 [id number] Unknown [id number] 2.16.8 [id number] Unknown [id number] 2.16.8 [id number] Unknown [id number] 2.16.8 40.1.039462.3.579.2.462 Unknown [id number] 2.16.8 40.1.424236.3.579.2.462 Unknown [id number] 2.16.8 40.1.563422.3.579.2.462 Unknown [id number] 2.16.8 40.1.907226.3.579.2.462 Unknown [id number] 2.16.8 40.1.106119.3.579.2.462 Unknown [id number] 2.16.8 40.1.543202.3.579.2.462 Unknown [id number] 2.16.8 40.1.718392.3.579.2.462 Unknown [id number] 2.16.8 40.1.370815.3.579.2.462 Unknown [id number] 2.16.8 40.1.614655.3.579.2.462 Unknown [id number] 2.16.8 40.1.178156.3.579.2.462 Unknown [id number] 2.16.8 40.1.104357.3.579.2.462 Unknown [id number] 2.16.8 40.1.401915.3.579.2.462 Unknown [id number] 2.16.8 40.1.591184.3.579.2.462 Unknown [id number] 2.16.8 40.1.460760.3.579.2.462 Unknown [id number] 2.16.8 40.1.218202.3.579.2.462 Unknown [id number] 2.16.8 40.1.492724.3.579.2.462 Social History Date Type Detail Facility Start: 10-31-2019 End: 04-11-2023 Tobacco smoking status CAIS Unknown if ever smoked [facility] Start: 08-18-2020 Rare [facility] Start: 08-18-2020 None [facility] Start: 08-18-2020 Homeless [facility] Start: 08-18-2020 Non-smoker [facility] Start: 1945 Sex Assigned At Female [facility] Start: 01-24-2024 End: 08-28-2024 Tobacco smoking status NHIS Ex-smoker (finding) [facility] Sex Female [facility] Mental Status Date Assessment Result Facility 08-28-2024 Cognitive function Level Of Cons ciousness Awake;Alert;Appropriate;Follow s Commands [facility] Work Phone: 02-22-2023 Cognitive function Voice/Name [facility] Work Phone: 08-24-2022 Cognitive function Awake;Alert;A ppropriate;Follow s Commands [facility] Work Phone: 02-23-2022 Cognitive function Voice/Name [facility] Work Phone: 08-18-2021 Cognitive function Voice/Name [facility] Work Phone: Clinical Notes 09-28-2022 to 01-02-2025 Note Date & Type Note Facility 01-02-2025 Note [facility] Medical Records Department [address] [place] [address] Discharge Summary 01/02/25 1410 MR#: [id number] Acct: [id number] Name: YAJAIRA BUNN Rep #: [id number] : 1945 79 From: Tyrone Naik DO PCP: Dr. Se Bryan MD Status:ADM IN Location: [place] [address] Providers Date of Admission: 01/01/25 Primary Care Physician: Se Bryan MD Reason For Visit: HYPERCALCEMIA Diagnosis Discharge Diagnosis (1) Hypercalcemia: Status: Chronic Code(s): E83.52 - Hypercalcemia Plan Severe hypercalcemia in setting of primary hyperparathyroidism * Calcium 14.0 on admit. Improved to 10.2 after IVF and a dose of calcitonin * Known history of primary hyperparathyroidism, follows with Dr. Quezada. On Prolia every 6 months and was started on Cinacalcet daily after an ED visit in August where calcium was 13.7 and PTH was more elevated than previous. * Recently established with surgery and current plan is for parathyroidectomy with Dr. Burnett on 01/03. I discussed over the phone with Dr. Burnett and he is aware patient has been admitted and surgery has been pushed back. * Continue home Cinacalcet. * Follow up BMP next week as outpt. TC * Creatinine 2.15 on admit, baseline around 1.0. Improved to 1.4 Chronic conditions: * Hypertension/hyperlipidemia: Patient hypertensive to the 160s to 170s systolic on admit. Continue amlodipine and hydralaine. * GERD??? Continue home PPI. * Osteoporosis??? No inpatient needs, continue Prolia injections in outpatient setting as instructed by endocrinology. CODE STATUS: Full code, verified Medications at Discharge Home Medications omeprazole magnesium 20 mg tablet,delayed release 20 mg PO DAILY acid reflux 05/20/17 aspirin 81 mg chewable tablet 81 mg PO QDAY heart 08/17/17 ferrous sulfate 325 mg (65 mg iron) tablet (FeroSul) 325 mg PO DAILY low iron 10/23/20 latanoprost 0.005 % eye drops 1 ml ophthalmic (eye) QHS retinal 10/23/20 simvastatin 20 mg tablet 20 mg PO QHS low cholestrol 10/23/20 vit C 250 mg-vit E 90 mg-zinc 40 mg-copper 1 ok-jrzobq-byahhg capsule (PreserVision AREDS-2) 1 tab PO BID eye health 08/18/21 denosumab 60 mg/mL subcutaneous syringe (Prolia) 60 mg subcut [id number] bnes #1 mL 10/20/22 cinacalcet 30 mg tablet 30 mg PO QDAY lower parathyroid #30 tabs 10/11/24 amlodipine 5 mg tablet 5 mg PO DAILY #30 tabs 01/02/25 hydralazine 25 mg tablet 25 mg PO TID #90 tabs 01/02/25 Hospital Course Summary of Care Provided Hospital Course: Greater than 30 minutes spent on discharge. Weight / BMI Weight Weight: 74.3 kg Body Mass Index (BMI) 32.0 ABG / Lab / Microbiology Data 01/02/25 04:02 01/02/25 12:53 Laboratory: Laboratory Results - last 24 hr 01/01/25 18:57: Phosphorus 2.8, Magnesium 1.7 01/02/25 04:02: WBC 7.8, RBC 3.10 L, Hgb 10.0 L, Hct 28.4 L, MCV 91.6, MCH 32.3 H, MCHC 35.2, RDW Std Deviation 39.4, RDW Coeff of Kyler 11.9, Plt Count 264, MPV 9.5, Sodium 139, Potassium 3.9, Chloride 108, Carbon Dioxide 22.9, Anion Gap 9, BUN 37 H, Creatinine 1.60 H, Estim Creat Clear Calc 26.51 L, Est GFR (MDRD) Non-Af 33 L, BUN/Creatinine Ratio 22.9 H, Glucose 141 H, Calcium 11.4 H, P hosphorus 2.1 L, Albumin 3.6 01/02/25 12:53: Sodium 139, Potassium 3.7, Chloride 109 H, Carbon Dioxide 20.4 L, Anion Gap 10, BUN 28 H, Creatinine 1.40 H, Estim Creat Clear Calc 30.29 L, Est GFR (MDRD) Non-Af 39 L, BUN/Creatinine Ratio 19.9, Glucose 99, Calcium 10.2 D/C Instructions DC O2, CPAP, BIPAP Needs Home O2 Discharge instructions: No Meaningful Use Info Meaningful Use Meaningful Use Diagnoses (Choose all that apply): None applicable Discharge Plan Admission Admit Date/Time: 01/01/25 18:35 Primary Reason for Your Visit: hypercalcemia Attending Provider: Tyrone Naik Primary Care Provider: Se Bryan Consulting Providers: Scot Sultana Additional Instructions / Restrictions: Please have blood work (BMP, basic metabolic profile) performed next week to evaluate you calcium level. Contact Dr. Burnett's office for timing of surgery. You calcium has improved with medication (calcitonin) and IV fluids. Please continue your current medication as ordered. You blood pressure has been elevated. I stopped you lisinopril given you renal failure (which is improving) and started you on amlodipine (Norvasc) and hydralazine. Discharge Orders/Prescriptions Prescriptions: New amlodipine 5 mg Tablet 5 mg PO DAILY Qty: 30 0RF hydralazine 25 mg tablet 25 mg PO TID Qty: 90 0RF Continued aspirin 81 mg tablet,chewable 81 mg PO QDAY simvastatin 20 mg tablet 20 mg PO QHS Patient Comments: Take 1 tablet by mouth daily latanoprost 0.005 % drops 1 ml ophthalmic (eye) QHS Patient Comments: instill 1 (ONE) drop into both eyes EVERY NIGHT AT BEDTIME ferrous sulfate [Jamaal (more content not included)... [facility] 11-20-2024 Progress note [facility] 11-20-2024 Progress note Note Date/Time November 20, 2024 2:24pm [facility] [address] [place] [address] [address] [place] [address] OFFICE VISIT Date of Service: 11/20/24 MR#: [id number] Acct: [id number] Name: YAJAIRA BUNN Rep #: [id number] : 1945 Provider: Dr. Jh Burnett MD Age/Sex: 79/F Location: [facility] Status: Signed Intake Vital Signs 10/24/24 [...] PO BID 08/18/21 11/20/24 History mg-copper 1 nm-mhlhux-wwkjek capsule (PreserVision AREDS-2) denosumab 60 mg/mL subcutaneous 60 mg subcut [id number] #1 mL 10/20/22 11/20/24 Rx syringe (Prolia) [...] initially identified by Dr. Jenaro Conroy at [facility] due to elevated calcium levels exceeding [...] fallen in the past year?: No 11/20/24 1744 <Electronically signed by Je Burnett MD> Date _ Je Burnett MD Cosigner Signature: Date (if applicable) CC: Dr. Se Bryan MD; Dr. Guicho Quezada MD ~ [facility] Work Phone: 1(288) 142-282109-09-2025 Nuclear medicine Diagnostic study note [facility] Imaging Services [address] [place] [address] [id number] Parathyroid Scan MR#: [id number] Acct: [id number] Name: YAJAIRA BUNN Rep #: [id number] : 1945 F 79 From: Lefty Murillo MD PCP: Dr. Se Bryan MD Status: REG CL I Study:Parathyroid Scan Date of Exam: 11/21 Exam# [id number] Ordering Dr: Levon Quezada i, MD PROCEDURE: [...] a left inferior parathyroid adenoma. Reading Location: [place] [address] CC: OMA Montes; Dr. Se Bryan MD; Dr. Guicho Quezada MD ~ Ballistics Expert: Signed [facility]09-08-2025 Radiology Diagnostic study note [facility] Imaging Services [address] [place] [address] [id number] Thyroid MR#: [id number] Acct: [id number] Name: YAJAIRA BUNN Rep #: [id number] : 1945 F 79 From: Benny Siegel MD PCP: Dr. Se Bryan MD Status: REG CL I Study:Thyroid Date of Exam: 11/04/24 Exam# [id number] Ordering Dr: Levon Quezada i, MD PROCEDURE: [...] no more than 2 nodules. Reading Location: [facility] CC: Dr. Se Bryan MD; Dr. Guicho Quezada MD ~ Ballistics Expert: Signed [facility]07-02-2025 Discharge summary [facility] Medical Records Department [address] [place] [id number] Emergency Department Summary 08/28/24 MR#: [id number] Acct: [id number] Name: YAJAIRA BUNN Rep #:[id number] : 1945 78 From: Lorne Cherry MD [...] PO BID 08/18/21 Unknown History mg-copper 1 kk-dkovpv-ujuhte capsule (PreserVision AREDS-2) denosumab 60 mg/mL subcutaneous 60 mg subcut [id number] #1 mL 10/20/22 Unknown Rx syringe (Prolia) [...] for EKG changes. Should be a short AL interval etc. Lab Data Lab results narrative: [...] % (Auto) 67.4 Lymph % (Auto) 19.2 [place] % (Auto) 9.6 Eos % (Auto) 2.7 [...] follows: Interpretation: Sinus Rhythm (Rate is 79. Wel[place] the left. AL interval is 204 ms. Cures duration 80 [...] Prolia 60 mg/mL syringe 60 mg SC [id number] Qty: 1 1RF cholecalciferol (vitamin D3) 25 mcg (1,000 unit) capsule 50 mcg PO QDAY omeprazole magnesium 20 MG tablet,delayed release (DR/EC) 20 mg PO DAILY PreserVision AREDS-2 250-90-40-1 mg Capsule 1 tab PO BID Primary Care Provider: Se Bryan Referrals: Se Bryan MD [Primary Care Provider] - Guicho Quezada MD [Med Staff - Courtesy Staff] - As Needed Print Language: Swiss Disposition Disposition: Home, Self Care What to do if you have Problems For any increased pain, shortness of breath, bleeding, nausea or vomiting, chestpain, or any unexpected problems, contact your Primary Care Provider. Call [facility] ([phone]) or report tothe closest Emergency Room. Call 911 if necessary. 08/28/242022 Cosigner Signature (if applicable): CC: Dr. Se Bryan MD ~ Signed [facility]07-02-2025 Discharge summary Author Lorne Cherry [facility] Note Date/Time August 28, 2024 8:23p m [facility] Medical Records Department [address] [place] [address] Emergency Department Summary 08/28/24 MR#: [id number] Acct: [id number] Name: YAJAIRA BUNN Rep #:[id number] : 1945 78 From: Lorne Cherry MD [...] similar symptoms: Yes Recent Illness/Hospitalization: No PFSH PFSH Medical History Vitamin D deficiency Abnormal [...] PO BID 08/18/21 Unknown History mg-copper 1 mo-tkkpbl-dvdqvw capsule (PreserVision AREDS-2) denosumab 60 mg/mL subcutaneous 60 mg subcut [id number] #1 mL 10/20/22 Unknown Rx syringe (Prolia) [...] for EKG changes. Should be a short AL interval etc. Lab Data Lab results narrative: [...] % (Auto) 67.4 Lymph % (Auto) 19.2 [place] % (Auto) 9.6 Eos % (Auto) 2.7 [...] follows: Interpretation: Sinus Rhythm (Rate is 79. [place] the left. AL interval is 204 ms. Cures duration 80 [...] Prolia 60 mg/mL syringe 60 mg SC [id number] Qty: 1 1RF cholecalciferol (vitamin D3) 25 mcg (1,000 unit) capsule 50 mcg PO QDAY omeprazole magnesium 20 MG tablet,delayed release (DR/EC) 20 mg PO DAILY PreserVision AREDS-2 250-90-40-1 mg Capsule 1 tab PO BID Primary Care Provider: Se Bryan Referrals: Se Bryan MD [Primary Care Provider] - Guicho Quezada MD [Med Staff - Courtesy Staff] - As Needed Print Language: Swiss Disposition Disposition: Home, Self Care What to do if you have Problems For any increased pain, shortness of breath, bleeding, nausea or vomiting, chestpain, or any unexpected problems, contact your Primary Care Provider. Call [facility] ([phone]) or report to the closest Emergency Room. Call 911 if necessary. 08/28/242022 <Electronically signed by Lorne Cherry MD> Cosigner Signature (if applicable): CC: Dr. Se Bryan MD ~ Signed [facility] Work Phone: 1(859) 146-421806-30-2025 Evaluation note* Diagnosis Onset Date Resolution Status Admit Date Osteoporosis chronic August 26, 2 025 1:50pm Primary hyperparathyroidism chronic August 26, 2024 1:50pm Vitamin D deficiency chronic August 26, 2024 1:50pm [facility] Work Phone: 1(349) 191-786606-30-2025 Evaluation note* Diagnosis Onset Date Resolution Status Admit Date Osteoporosis chronic August 26, 2 025 1:50pm Primary hyperparathyroidism chronic August 26, 2024 1:50pm Vitamin D deficiency chronic August 26, 2024 1:50pm Primary hyperparathyroidism chronic October 24, 2024 3:21pm Primary hyperparathyroidism chronic November 20, 2024 12:45pm [facility] Work Phone: 1(552) 642-205006-30-2025 [facility] [address] [place] [address] OFFICE VISIT Date of Service: 08/26/24 MR#: [id number] Acct: [id number] Name: YAJAIRA BUNN Rep #: [id number] : 1945 Provider: Dr. Guicho Quezada MD Age/Sex: 78/F Location: [facility] Status: Signed Intake Vital Signs 10/20/23 13:02 08/26/24 13:49 Height 5 ft 5 ft Weight: 169 lb BMI 33.0 BP 144/80 H Blood Pressure Location Lt brachial Position Sitting Pulse 85 Pulse Source Monitor Pulse Oximetry (%) 96 Oxygen Delivery Method room air Intake Visit Reasons: 1 Y FU/ Prolia - B&B Chief Complaint: Osteoporosis Field Logistics Coordinator Required: No Accompanied by: Self Is patient [...] PO BID 08/18/21 08/26/24 History mg-copper 1 xj-lbxric-mgrttj capsule (PreserVision AREDS-2) denosumab 60 mg/mL subcutaneous 60 mg subcut [id number] #1 mL 10/20/22 08/26/24 Rx syringe (Prolia) [...] good Office Procedures Injections Procedure performed by: Rosemarie Oakley Lot number: [id number] Patient Access Registrar: [employer] date: 02/26/27 Dose of injection: 1mL Site of injection: Sub-Q Medication Given: Yes Is this a patient provided medication?: No Office Meds Prolia 60 mg/mL subcutaneous syringe Performing Provider: Guicho Quezada MD Performing Location: [facility] Administered by: Rosemarie Oakley on 08/26/24 14:02 Dose Route Admin Location Dispensed Lot Number Expiration Date [facility] Patient Access Registrar 60 mg subcut Lt Arm 1 mL [id number] 02/26/27 16210-035-94 [employer] Clinical Quality Measures Falls Risk Screening/Assistive [...] G2211 (G2211) 08/26/24 1416 Date _ Guicho Quezada MD Cosigner Signature: Date (if applicable) CC: Dr. Se Bryan MD ~ [facility]06-30-2025 Progress note Author Guicho Quezada [facility] Note Date/Time August 26, 2024 2:16 pm [facility] [address] [place] [address] [address] [place] [address] OFFICE VISIT Date of Service: 08/26/24 MR#: [id number] Acct: [id number] Name: YAJAIRA BUNN Rep #: [id number] : 1945 Provider: Dr. Guicho Quezada MD Age/Sex: 78/F Location: [facility] Status: Signed Intake Vital Signs 10/20/23 13:02 08/26/24 13:49 Height 5 ft 5 ft Weight: 169 lb BMI 33.0 BP 144/80 H Blood Pressure Location Lt brachial Position Sitting Pulse 85 Pulse Source Monitor Pulse Oximetry (%) 96 Oxygen Delivery Method room air Intake Visit Reasons: 1 Y FU/ Prolia - B&B Chief Complaint: Osteoporosis Field Logistics Coordinator Required: No Accompanied by: Self Is patient [...] PO BID 08/18/21 08/26/24 History mg-copper 1 wn-rzrvjw-srorpj capsule (PreserVision AREDS-2) denosumab 60 mg/mL subcutaneous 60 mg subcut [id number] #1 mL 10/20/22 08/26/24 Rx syringe (Prolia) [...] good Office Procedures Injections Procedure performed by: Rosemarie Oakley Lot number: [id number] Patient Access Registrar: [employer] date: 02/26/27 Dose of injection: 1mL Site of injection: Sub-Q Medication Given: Yes Is this a patient provided medication?: No Office Meds Prolia 60 mg/mL subcutaneous syringe Performing Provider: Guicho Quezada MD Performing Location: [facility] Administered by: Rosemarie Oakley on 08/26/24 14:02 Dose Route Admin Location Dispensed Lot Number Expiration Date NDC Patient Access Registrar 60 mg subcut Lt Arm 1 mL [id number] 02/26/27 62071-244-90 [facility] Clinical Quality Measures Falls Risk Screening/Assistive Devices [...] - Extra Time Spent: G2211 (G2211) 08/26/24 4616 <Electronically signed by Guicho Quezada MD> Date _ Guicho Whitfield Signature: Date (if applicable) CC: Dr. Se Bryan MD ~ [facility] Work Phone: 1(989) 113-978404-23-2024 Procedure [facility] 09-28-2022 [facility] HospitalEvaluation noteNo assessment information available[facility] Work Phone: Evaluation note* Diagnosis Onset Date Resolution Status Vitamin D deficiency acute Osteoporosis chronic Primary hyperparathyroidism [facility] Work Phone: Evaluation note* Diagnosis Onset Date Resolution Status Osteoporosis chronic Primary hyperparathyroidism chronic Vitamin D deficiency [facility] Work Phone: Evaluation note* Diagnosis Onset Date Resolution Status Admit Date Osteoporosis chronic August 26, 025 1:50pm Primary hyperparathyroidism chronic August 26, 2024 1:50pm Vitamin D deficiency chronic August 26, 2024 1:50pm [facility] Work Phone: Reason for referral (narrative)No reason for referral information [facility] Work Phone: Summary Purpose Family History No Family History Records Found Relationship Condition Age at Onset Recorded Date/T jamie grandmother Malignant neoplasm of breast Unknown Advance Directives No Advanced Directives Records Found Advance Directive Response Recorded Date/ Time Living Will No May 20, 2017 6:21pm Power of Vegetable Harvest Worker No May 20 6:21pm Advance Directive Response Recorded Date/ Time Living Will No May 20, 2017 5:21pm Power of Vegetable Harvest Worker No May 20 5:21pm Advance Directive Response Recorded Date/ Time Do you have a Healthcare Power of Vegetable Harvest Worker? Yes August 28, 2024 6:16pm Chief Complaint [...] November 04, 2024 1:32pm HYPERPARATHYROIDISM, HYPERCALCEMIA Septe [facility] 2024 10:06am E ORDERS/3 ORDERING DRS November [...] section and content) DATE CREATED AUTHOR 08/18/2017 [facility] DATE CREATED AUTHOR AUTHOR'S ORGANIZ ATION 10/19/2018 [facility] ([place]) DATE CREATED AUTHOR AUTHOR'S ORGANIZ ATION 01/08/2025 [facility] Goals (unrecognized section and content) Goals may [...] Primary Care Provider, Referring Provider Active Reggie MAD[place], PA Attending Provider Active Team Status: Active [...] Active Team Status: Inactive Member Role/Relationship Status Dates Se Bryan MD Referring Provider Active Start : August 26, 2024 End: August 26, 2024 Dr. Guicho Quezada MD Attending Provider Active Sta rt: August 26, 2024 End: August 26, 2024 Team Status: Active Member Role/Relationship Status Dates Se Bryan MD Primary Care Provider Active Team Status: Inactive Member Role/Relationship Status Dates Se Bryan MD Referring Provider Active Start : August 26, 2024 End: August 26, 2024 Dr. Guicho Quezada MD Attending Provider Active Sta rt: August 26, 2024 End: August 26, 2024 Team Status: Inactive Member Role/Relationship Status Dates Se Bryan MD Primary Care Provider Active St [...] Provider Active Sta rt: November 15, 2024 [facility] Nurse Practitioner [...] BE BASED ON THE PRIMARY CLINICAL RECORDS. [employer] provides no warranty or guarantee of the accuracy or completeness of information in this document.
[2025-01-21 15:28] LABS: Hematocrit 31.6 % (37-47); Hemoglobin 11.0 g/dL (12.0-15.0); Immature Granulocytes Count 0.020 X10^3/uL (0.0-0.0); Mean Corp Hgb Conc 34.8 g/dL (32-36); Mean Corpuscular Volume 91.9 fL (81-99); Mean Platelet Vol. 9.9 fl (6.2-12.0); NRBC Flagged by Analyzer 0 % (0-5); Platelet Count 262 K/mm3 (150-450); RBC Distribution Width CV 11.9 % (11.6-14.6); RBC Distribution Width SD 40.1 fl (35.1-43.9); Red Blood Count 3.44 M/mm3 (4.2-5.4); White Blood Count 7.3 K/mm3 (4.4-11.0)
== END | disposition home or self-care (01) ==
LOC: MFPLAB 11:50
PROVIDERS: PCP Family Medicine; Visit Provider Family Medicine
DX: D64.9 Anemia, unspecified (principal)
CPT/HCPCS: 36415; 85025

== ENCOUNTER 2025-01-28 05:45 | Day surgery (SDC) | payer MEDICARE, SELFPAY ==
[2025-01-01 15:16] LABS: PTHIN 279 pg/mL (11-61)
--- NOTE | 2025-01-21 16:08 | PAT.ANESEVAL ---
Pre-Assessment Diagnosis/Proposed Procedure Planned Operative Procedure(s): PARATHYROIDECTOMY WITH PARATHYROID HORMONE AND NERVE MONITORING Anesthesia History Anesthesia History - learning disabilities specialist: Anesthesia History - learning disabilities specialist Hx Hospitalization No 01/21/25 14:19 Any Problems With Anesthesia Yes: N,V 201001/21/25 14:19 Cholinesterase deficiency No 01/21/25 14:19 You/Your Family Experience No 01/21/25 14:19 fever (hyperthermia) with Relationship Recent Exposure to Contagious Disease Does patient have nerve No 01/21/25 14:19 stimulator Patient instructed to have device shut off --Does patient have Pacemaker or ICD? When Was Last Pacemaker Check QUESTION #4 FULL TEXT: You/Your Family Experience fever (hyperthermia) with Anesthesia Last Oral Intake Last Oral intake: Last Oral Intake NPO since Meds taken in AM with sips of water? Meds patient instructed to take am of surgery PONV PONV - learning disabilities specialist: PONV - learning disabilities specialist Female Yes 01/21/25 14:19 HX of Motion Sickness No 01/21/25 14:19 HX of N/V After Surgery No 01/21/25 14:19 Non-Smoker Yes 01/21/25 14:19 Duration of Surgery greater Yes 01/21/25 14:19 than 60 minutes Number of Risk Factors 3 01/21/25 14:19 PONV Score Moderate Risk 01/21/25 14:19 Height & Weight Height & Weight: Anesthesia: Height & Weight Height 5 ft 01/16/25 08:30 Respiratory Assessment Respiratory Assessment - learning disabilities specialist: Respiratory Tract Infection Hx - learning disabilities specialist Hx Respiratory Tract Infection No 01/21/25 14:19 STOP Sleep Apnea STOP Sleep Apnea - learning disabilities specialist: STOP Sleep Apnea - learning disabilities specialist Hx Hypertension Yes 01/21/25 14:19 Hx Sleep Apnea No 01/21/25 14:19 CPAP BIPAP Do you snore loudly (louder No 01/21/25 14:19 than talking or can be heard Do you often feel tired/ Yes 01/21/25 14:19 fatigued/ sleepy during daytime? Has anyone observed you stop No 01/21/25 14:19 breathing during sleep? STOP Results Positive 01/21/25 14:19 QUESTION #5 FULL TEXT : Do you snore loudly (louder than talking or can be heard through closed doors)? Tobacco Use History Tobacco Use History - learning disabilities specialist: Tobacco Use History - learning disabilities specialist Tobacco Use Non-smoker 08/18/20 07:26 Smoking Status Former smoker 01/21/25 14:19 Hx Tobacco Use No 01/21/25 14:19 Years Smoking Packs Smoked per Day Smoking Cessation Date was No - quit smoking greater 01/21/25 14:19 within the last 15 years than 15 years ago Hx Smoking Cessation Date Hx Smoking Cessation No 01/21/25 14:19 Counseling Hematologic Medial History Hematologic Hx - learning disabilities specialist: Hematologic Medical Hx - assembler unit Hx of Blood Transfusion Yes 01/21/25 14:19 Hx of Transfusion in last 3 No 01/21/25 14:19 Months Date of Last Transfusion (if within last 3 months) Ever experience any problems No 01/21/25 14:19 with transfusion(s)? Specify any problems Hx of Preganancy in last 3 No 01/21/25 14:19 Months Nurse Filling Out Transfusion [id number] 01/21/25 14:19 & Questions: Date: 01/21/25 01/21/25 14:19 Time: 14:19 01/21/25 14:19 Patient unable to answer at this time (ie. confused, unrespo /Reproduction History /Reproductive History - learning disabilities specialist: /Reproductive Hx- learning disabilities specialist Hx Now No 01/21/25 14:19 Gestational Age (in weeks): EDC: Hx Hx Para Hx Section SAB No 01/21/25 14:19 Does the father of the baby or his family experience fever w Father of the baby Malignant [facility]ension [facility] History Wears hearing aid Wears contact lenses Post-menopausal Alcohol use Thyroid disease Low iron High cholesterol Restless legs Fainted Gastric reflux Shortness of breath on exertion Former smoker History of pain when walking History of edema History of echocardiogram Vitamin D deficiency Abnormal mammogram of right breast Heart murmur Arthritis HTN (hypertension) Home Medications ?Medication ?Instructions ?Recorded ?Last Taken ?Type omeprazole magnesium 20 mg 20 mg PO DAILY acid reflux 05/20/17 Unknown History tablet,delayed release aspirin 81 mg chewable tablet 81 mg PO QDAY heart 08/17/17 Unknown History ferrous sulfate 325 mg (65 mg 325 mg PO DAILY low iron 10/23/20 Unknown History iron) tablet (FeroSul) latanoprost 0.005 % eye drops 1 ml ophthalmic (eye) QHS retinal 10/23/20 Unknown History simvastatin 20 mg tablet 20 mg PO QHS low cholestrol 10/23/20 Unknown History vit C 250 mg-vit E 90 mg-zinc 40 1 tab PO BID eye health 08/18/21 Unknown History mg-copper 1 dj-lvqxgz-wyngmg capsule (PreserVision AREDS-2) denosumab 60 mg/mL subcutaneous 60 mg subcut [id number] bnes #1 mL 10/20/22 Unknown Rx syringe (Prolia) cinacalcet 30 mg tablet 30 mg PO QDAY lower parathyroid 10/11/24 Unknown Rx #30 tabs amlodipine 5 mg tablet 5 mg PO DAILY #30 tabs 01/02/25 Unknown Rx hydralazine 25 mg tablet 25 mg PO TID #90 tabs 01/02/25 Unknown Rx Allergy/AdvReac Type Severity Reaction Status Date / Time No Known Allergies Allergy Verified 01/21/25 14:12 Family History Grandmother Breast cancer Surgical History History of incision and drainage History of carpal tunnel surgery of right wrist Hx of total hip arthroplasty H/O colonoscopy History of hip surgery Social History household members: spouse Smoking Status: Former smoker alcohol intake: current alcohol intake frequency: holidays/special occasions only Audit: Pertinent Findings Pertinent Findings EKG Perinent findings: EKG 12/2024: NSR, inferior infaract age undetermined Recommendation Anesthesia Recommendation Anesthesia recommendation: OPTIMIZED for anesthesia
[2025-01-28] VITALS (14 sets, daily range): BP systolic 147–179; BP diastolic 63–87; PULSE 86–119; RESP 16–18; TEMP 36.7–37.5; O2SAT 92–98; BMI 31.4
--- OUTSIDE RECORDS SUMMARY | 2025-01-28 05:51 | XMS RPT_ITS | CCD ---
Author Organization [facility] Care Team Providers Care Ring Stamper Name Role Phone Dr. Jenaro Loo Referring [...] Dilip VALLE, Dr. Pradhan Attending Provider King ELONARD, Dr. Lindo Attending Physician Randi VALLE, Se Primary Care Physician Dilip VALLE, Dr. Pradhan Attending Physician [phone] Dilip VALLE, Dr. Pradhan Emergency Department Physician King LEONARD, Dr. Lindo Nurse Practitioner Simon MATRIX REPAIRER-C, Kristie Attending Physician Simon MATRIX REPAIRER-C, Kristie Referring Provider Simon MATRIX REPAIRER-C, Kristie Nurse Practitioner Hortencia VALLE, Dr. Wooten [...] 1 tablet by mouth once daily Vit C,C-Ee-Ertfp-Lutein-Zeax an (Preservision Areds-2) 250-90-40-1 mg Capsule (20 sources) Start: 08-18-2021 take 2 capsules by mouth twice daily Start: 08-18-2021 take 2 capsules by m outh twice daily Vit C,X-Rl-Jfzkb-Lutein-Zeaxan (Preservision Areds-2) 250-90-40-1 mg Capsule Active 1 {tbl} PO TWICE A DAY August 18, 2021 12:00am Start: 08-18-2021 Vit C,E-Zn-Jewelry Dipper oc-Qbzznr-Qhdoaq (Preservision Areds-2) 250-90-40-1 mg Capsule Active 1 TABLET PO TWICE A DAY August 17, 2021 11:00pm Start: 08-18-2021 Vit C,E-Zn-Jewelry Dipper lz-Ytadjz-Qbyaur (Preservision Areds-2) 250-90-40-1 mg Capsule Active 1 TABLET PO TWICE A DAY August 18, 2021 12:00am Completed/Discontinued Medications Medication Drug Class(es) Dates Sig (Normalized) Sig (Original) [id number] actuat albuterol 0.09 mg/actuat metered dose [...] 01-06-2025 BUN/CRE 12.5 RATIO Normal 12-16 [facility] Comment on above: Performed By: #### L 500.6527 #### [facility] [address] [place], [place], [address] Calcium [Mass/Vol] 10.0 mg/dL Normal 7.6-11.0 [facility] Comment on above: Performed By: #### L 500.2500 #### [facility] [address] [place], [address] Chloride [Moles/Vol] 107 mmol/L Normal 98-108 [facility] Comment on above: Performed By: #### L 500.2500 #### [facility] [address] [place], [address] CO2 [Moles/Vol] 19.8 mmol/L Low 21.0-32.0 [facility] Comment on above: Performed By: #### L 500.2500 #### [facility] [address] [place], [address] Creatinine [Mass/Vol] 1.13 mg/dL Normal 0.70-1.20 [facility] Comment on above: Performed By: #### L 500.2500 #### [facility] [address] [place], [address] GAP 10 Normal 5-15 [facility] Comment on above: Performed By: #### L 500.2500 #### [facility] [address] [place], [address] GFR/1.73 sq M.predicted among non-blacks MDRD (S/P/Bld) [Vol rate/Area] 50 mL/min/{1.73_m2} Low >60 [facility] Comment on above: Result Comment: mL/m in/1.73m2 CKD-EPI Creatinine Equation (2020) Performed By: #### L 500.2500 #### [facility] [address] [place], [address] Glucose [Mass/Vol] 129 mg/dL High 70-99 [facility] Comment on above: Performed By: #### L 500.2500 #### [facility] [address] [place], [address] Potassium [Moles/Vol] 3.7 mmol/L Normal 3.3-5.1 [facility] Comment on above: Performed By: #### L 500.2500 #### [facility] [address] [place], [address] Sodium [Moles/Vol] 136 mmol/L Normal 133-145 [facility] Comment on above: Performed By: #### L 500.2500 #### [facility] [address] [place], [address] Urea nitrogen [Mass/Vol] 14 mg/dL Normal 4-19 [facility] Comment on above: Performed By: #### L 500.2500 #### [facility] [address] [place], [address] Basic Metabolic Profile (BMP )on 01-02-2025 BUN/CRE 19.9 RATIO Normal 10-20 [facility] Comment on above: Performed By: #### L 500.2500 #### [facility] [address] [place], [address] Calcium [Mass/Vol] 10.2 mg/dL Normal 7.6-11.0 [facility] Comment on above: Performed By: #### L 500.2500 #### [facility] [address] [place], [address] Chloride [Moles/Vol] 109 mmol/L High 98-108 [facility] Comment on above: Performed By: #### L 500.2500 #### [facility] [address] [place], [address] CO2 [Moles/Vol] 20.4 mmol/L Low 21.0-32.0 [facility] Comment on above: Performed By: #### L 500.2500 #### [facility] [address] [place], [address] Creatinine [Mass/Vol] 1.40 mg/dL High 0.70-1.20 [facility] Comment on above: Performed By: #### L 500.2500 #### [facility] [address] [place], [address] ECRCL 30.29 ml/min Low 50-250 [facility] Comment on above: Performed By: #### L 500.2500 #### [facility] [address] [place], [address] GAP 10 Normal 5-15 [facility] Comment on above: Performed By: #### L 500.2500 #### [facility] [address] [place], [address] GFR/1.73 sq M.predicted among non-blacks MDRD (S/P/Bld) [Vol rate/Area] 39 mL/min/{1.73_m2} Low >60 [facility] Comment on above: Result Comment: mL/m in/1.73m2 CKD-EPI Creatinine Equation (2020) Performed By: #### L 500.2500 #### [facility] [address] [place], [address] Glucose [Mass/Vol] 99 mg/dL Normal 70-99 [facility] Comment on above: Performed By: #### L 500.2500 #### [facility] [address] [place], [address] Potassium [Moles/Vol] 3.7 mmol/L Normal 3.3-5.1 [facility] Comment on above: Performed By: #### L 500.2500 #### [facility] [address] [place], [address] Sodium [Moles/Vol] 139 mmol/L Normal 133-145 [facility] Comment on above: Performed By: #### L 500.2500 #### [facility] [address] [place], [address] Urea nitrogen [Mass/Vol] 28 mg/dL High 4-19 [facility] Comment on above: Performed By: #### L 500.2500 #### [facility] [address] [place], [address] CBC-Complete Blood Cnt No Di ffon 01-02-2025 Erythrocyte distribution width (RBC) [Ratio] 11.9 % Normal 11.6-14.6 [facility] Comment on above: Performed By: #### L 500.4050, L100.0100 #### [facility] [address] [place], [address] Hematocrit (Bld) [Volume fraction] 28.4 % Low 37-47 [facility] Comment on above: Performed By: #### L 500.4050, L100.0100 #### [facility] [address] [place], [address] Hemoglobin (Bld) [Mass/Vol] 10.0 g/dL Low 12.0-15.0 [facility] Comment on above: Performed By: #### L 500.4050, L100.0100 #### [facility] [address] [place], [address] MCH (RBC) [Entitic mass] 32.3 pg High 27.0-32.0 [facility] Comment on above: Performed By: #### L 500.4050, L100.0100 #### [facility] [address] [place], [address] MCHC (RBC) [Mass/Vol] 35.2 g/dL Normal 32-36 [facility] Comment on above: Performed By: #### L 500.4050, L100.0100 #### [facility] [address] [place], [address] MCV (RBC) [Entitic vol] 91.6 fL Normal 81-[address] [facility] Comment on above: Performed By: #### L 500.4050, L100.0100 #### [facility] [address] [place], [address] Platelet mean volume (Bld) [Entitic vol] 9.5 fL Normal 6.2-12.0 [facility] Comment on above: Performed By: #### L 500.4050, L100.0100 #### [facility] [address] [place], [address] Platelets (Bld) [#/Vol] 264 10*3/uL Normal 150-450 [facility] Comment on above: Performed By: #### L 500.4050, L100.0100 #### [facility] [address] [place], [address] RBC (Bld) [#/Vol] 3.10 10*6/uL Low 4.2-5.4 [facility] Comment on above: Performed By: #### L 500.4050, L100.0100 #### [facility] [address] [place], [address] RDW SD 39.4 fl Normal 35.1-43.9 [facility] Comment on above: Performed By: #### L 500.4050, L100.0100 #### [facility] [address] [place], [address] WBC (Bld) [#/Vol] 7.8 10*3/uL Normal 4.4-11.0 [facility] Comment on above: Performed By: #### L 500.4050, L100.0100 #### [facility] [address] [place], [address] Renal Profileon 01-02-2025 Albumin [Mass/Vol] 3.6 g/dL Normal 3.4-4.8 [facility] Comment on above: Performed By: #### L 500.4050, L100.0100 #### [facility] [address] [place], [address] BUN/CRE 22.9 RATIO High 10-20 [facility] Comment on above: Performed By: #### L 500.4050, L100.0100 #### [facility] [address] [place], [address] Calcium [Mass/Vol] 11.4 mg/dL High 7.6-11.0 [facility] Comment on above: Performed By: #### L 500.4050, L100.0100 #### [facility] [address] [place], [address] Chloride [Moles/Vol] 108 mmol/L Normal 98-108 [facility] Comment on above: Performed By: #### L 500.4050, L100.0100 #### [facility] [address] [place], [address] CO2 [Moles/Vol] 22.9 mmol/L Normal 21.0-32.0 [facility] Comment on above: Performed By: #### L 500.4050, L100.0100 #### [facility] [address] [place], [address] Creatinine [Mass/Vol] 1.60 mg/dL High 0.70-1.20 [facility] Comment on above: Performed By: #### L 500.4050, L100.0100 #### [facility] [address] [place], [address] ECRCL 26.51 ml/min Low 50-250 [facility] Comment on above: Performed By: #### L 500.4050, L100.0100 #### [facility] [address] [place], [address] GAP 9 Normal 5-15 [facility] Comment on above: Performed By: #### L 500.4050, L100.0100 #### [facility] [address] [place], [address] GFR/1.73 sq M.predicted among non-blacks MDRD (S/P/Bld) [Vol rate/Area] 33 mL/min/{1.73_m2} Low >60 [facility] Comment on above: Result Comment: mL/m in/1.73m2 CKD-EPI Creatinine Equation (2020) Performed By: #### L 500.4050, L100.0100 #### [facility] [address] [place], [address] Glucose [Mass/Vol] 141 mg/dL High 70-99 [facility] Comment on above: Performed By: #### L 500.4050, L100.0100 #### [facility] [address] [place], [address] Phosphate [Mass/Vol] 2.1 mg/dL Low 2.7-4.5 [facility] Comment on above: Performed By: #### L 500.4050, L100.0100 #### [facility] [address] [place], [address] Potassium [Moles/Vol] 3.9 mmol/L Normal 3.3-5.1 [facility] Comment on above: Performed By: #### L 500.4050, L100.0100 #### [facility] [address] [place], [address] Sodium [Moles/Vol] 139 mmol/L Normal 133-145 [facility] Comment on above: Performed By: #### L 500.4050, L100.0100 #### [facility] [address] [place], [address] Urea nitrogen [Mass/Vol] 37 mg/dL High 4-19 [facility] Comment on above: Performed By: #### L 500.4050, L100.0100 #### [facility] [address] [place], [address] Comprehensive Metabolic Prof ilon 01-01-2025 Albumin [Mass/Vol] 4.3 g/dL Normal 3.4-4.8 [facility] Comment on above: Order Comment: PTH-D UPLICATE FOR HORTENCIA MONTES Performed By: #### L 500.4050, L100.0100 #### [facility] [address] [place], [address] Albumin/Globulin [Mass ratio] 1.5 {ratio} Normal 0.9-2.4 [facility] Comment on above: Order Comment: PTH-D UPLICATE FOR HORTENCIA MONTES Performed By: #### L 500.4050, L100.0100 #### [facility] [address] [place], [address] ALK PHOS 59 U/L Normal 35-104 [facility] Comment on above: Order Comment: PTH-D UPLICATE FOR HORTENCIA MONTES Performed By: #### L 500.4050, L100.0100 #### [facility] [address] [place], [address] ALT [Catalytic activity/Vol] 24 U/L Normal <=34 [facility] Comment on above: Order Comment: PTH-D UPLICATE FOR HORTENCIA MONTES Performed By: #### L 500.4050, L100.0100 #### [facility] [address] [place], [address] AST [Catalytic activity/Vol] 25 U/L Normal <=31 [facility] Comment on above: Order Comment: PTH-D UPLICATE FOR HORTENCIA MONTES Performed By: #### L 500.4050, L100.0100 #### [facility] [address] [place], [address] Bilirubin [Mass/Vol] 0.29 mg/dL Normal 0.00-1.30 [facility] Comment on above: Order Comment: PTH-D UPLICATE FOR HORTENCIA MONTES Performed By: #### L 500.4050, L100.0100 #### [facility] [address] [place], [address] BUN/CRE 21.5 RATIO High 10-20 [facility] Comment on above: Order Comment: PTH-D UPLICATE FOR HORTENCIA MONTES Performed By: #### L 500.4050, L100.0100 #### [facility] [address] [place], [address] Calcium [Mass/Vol] 14.0 mg/dL Invalid Interpretation Code 7.6-11.0 [facility] Comment on above: Order Comment: PTH-D UPLICATE FOR HORTENCIA MONTES Result Comment: Crit ical Result(s) Called at: 1615 01/01/25 by:??ROSEMARIE SON Results read back by same. Performed By: #### L 500.4050, L100.0100 #### [facility] [address] [place], [address] Chloride [Moles/Vol] 97 mmol/L Low 98-108 [facility] Comment on above: Order Comment: PTH-D UPLICATE FOR HORTENCIA MONTES Performed By: #### L 500.4050, L100.0100 #### [facility] [address] [place], [address] CO2 [Moles/Vol] 29.7 mmol/L Normal 21.0-32.0 [facility] Comment on above: Order Comment: PTH-D UPLICATE FOR HORTENCIA MONTES Performed By: #### L 500.4050, L100.0100 #### [facility] [address] [place], [address] Creatinine [Mass/Vol] 2.15 mg/dL High 0.70-1.20 [facility] Comment on above: Order Comment: PTH-D UPLICATE FOR HORTENCIA MONTES Performed By: #### L 500.4050, L100.0100 #### [facility] [address] [place], [address] GAP 11 Normal 5-15 [facility] Comment on above: Order Comment: PTH-D UPLICATE FOR HORTENCIA MONTES Performed By: #### L 500.4050, L100.0100 #### [facility] [address] [place], [address] GFR/1.73 sq M.predicted among non-blacks MDRD (S/P/Bld) [Vol rate/Area] 23 mL/min/{1.73_m2} Low >60 [facility] Comment on above: Order Comment: PTH-D UPLICATE FOR HORTENCIA MONTES Result Comment: mL/m in/1.73m2 CKD-EPI Creatinine Equation (2020) Performed By: #### L 500.4050, L100.0100 #### [facility] [address] [place], [address] Globulin (S) [Mass/Vol] 2.9 g/dL Normal 2.2-4.2 [facility] Comment on above: Order Comment: PTH-D UPLICATE FOR HORTENCIA MONTES Performed By: #### L 500.4050, L100.0100 #### [facility] [address] [place], [address] Glucose [Mass/Vol] 112 mg/dL High 70-99 [facility] Comment on above: Order Comment: PTH-D UPLICATE FOR HORTENCIA MONTES Performed By: #### L 500.4050, L100.0100 #### [facility] [address] [place], [address] Potassium [Moles/Vol] 4.1 mmol/L Normal 3.3-5.1 [facility] Comment on above: Order Comment: PTH-D UPLICATE FOR HORTENCIA MONTES Performed By: #### L 500.4050, L100.0100 #### [facility] [address] [place], [address] Sodium [Moles/Vol] 138 mmol/L Normal 133-145 [facility] Comment on above: Order Comment: PTH-D UPLICATE FOR HORTENCIA MONTES Performed By: #### L 500.4050, L100.0100 #### [facility] [address] [place], [address] T PROT 7.2 g/dL Normal 5.9-8.4 [facility] Comment on above: Order Comment: PTH-D UPLICATE FOR HORTENCIA MONTES Performed By: #### L 500.4050, L100.0100 #### [facility] [address] [place], [address] Urea nitrogen [Mass/Vol] 46 mg/dL High 4-19 [facility] Comment on above: Order Comment: PTH-D UPLICATE FOR HORTENCIA MONTES Performed By: #### L 500.4050, L100.0100 #### [facility] [address] [place], [address] Emergency Department Summary on 01-01-[address] [facility] Medical Records Department [address] [place] [address] Emergency Department Summary 01/01/25 MR#: [id number] Acct: [id number] Name: YAJAIRA BUNN Rep #: [id number] : 1945 79 From: Lorne Cherry MD PCP: Dr. Se Bryan MD Status:ADM IN Location: [address] History of Present Illness Chief Complaint: [...] symptoms: Yes Recent Illness/Hospitalizatio n: No PFSH [facility] Medical History Wears hearing aid Wears contact [...] health 08/18/21 U nknown History mg-copper 1 cf-sqqizr-bshdwe capsule (PreserVision AREDS-2) denosumab 60 mg/mL subcutaneous 60 mg subcut [id number] bnes #1 mL 0 10/20/22 Unknown Rx [...] C (more content not included)... Normal [facility] H AND P Exam - Hospitaliston 01-01-2025 H&P Exam - Hospitalist [facility] Medical Records Department [address] [place] [address] H P Exam - Hospitalist 01/01/25 1835 MR#: [id number] Acct: [id number] Name: YAJAIRA BUNN Rep #: [id number] : 1945 79 From: Scot Sultana DO PCP: Dr. Se Bryan MD Status:ADM IN Location: [facility] [place] [id number] HPI - General General Date of Admission: 01/01/25 Date of Service: 01/01/25 Chief Complaint: Severe hypercalcemia HPI Narrative YAJAIRA BUNN, is a 79 F who presented to [facility] ED on 01/01/2025 with severe hypercalcemia. [...] currently. Will be admitted for further management. [facility] Medical History Wears hearing aid Wears contact [...] health 08/18/21 U nknown History mg-copper 1 vl-nexuoq-maboco capsule (PreserVision AREDS-2) denosumab 60 mg/mL subcutaneous 60 mg subcut [id number] bnes #1 mL 0 10/20/22 Unknown Rx [...] Physica (more content not included)... Normal [facility] Magnesiumon 01-01-2025 Magnesium [Mass/Vol] 1.7 mg/dL Normal 1.5-2.2 [facility] Comment on above: Order Comment: Comme nts: ok to add on Performed By: #### L 500.4050, L100.0100 #### [facility] [address] [place], [address] PTHINon 01-01-2025 PTH 279 pg/mL High 11-61 [facility] Comment on above: Order Comment: PTH-D UPLICATE FOR HORTENCIA MONTES Performed By: #### L 500.4050, L100.0100 #### [facility] [address] [place], [address] Phosphoruson 01-01-2025 Phosphate [Mass/Vol] 2.8 mg/dL Normal 2.7-4.5 [facility] Comment on above: Order Comment: Comme nts: ok to add on Performed By: #### L 500.4050, L100.0100 #### [facility] [address] [place], [address] Breast Limited Unilateralon 12-16-2024 Breast Limited Unilateral [facility] Imaging Services [address] [place] [address] Breast Limited Unilateral MR#: [id number] Acct: [id number] Name: YAJAIRA BUNN Rep #: [id number] : 1945 F 79 From: Sheela Quevedo PCP: Dr. Se Bryan MD Status: REG CLI Study: Breast Limited Unilateral Date of Exam: Exam# [id number] Ordering Dr: Se Bryan MD PROCEDURE: BREAST [...] BENIGN. RECOMMENDATION: 6 Month Follow-up Reading Location: [id number] CC: Dr. Se Bryan MD Project Superintendent: Signed Normal [facility] DIAG MAMM W/CAD, UNILATon DIAG MAMM W/CAD, UNILAT [facility] Imaging Services [address] [place] [address] DIAG MAMM W/CAD, UNILAT MR#: [id number] Acct: [id number] Name: YAJAIRA BUNN Rep #: [id number] : 1945 F 79 From: Sheela Quevedo PCP: Dr. Se Bryan MD Status: REG CLI Study: DIAG MAMM W/CAD, UNILAT Date of Exam: 12/16/24 Exam# [id number] Ordering Dr: Se Bryan MD EXAM: DIAG [...] be mailed to the patient. Reading Location: [id number] CC: Dr. Se Bryan MD Project Superintendent: Signed Normal [facility] Dexa Bone Density Studyon Dexa Bone Density Study [facility] Imaging Services [address] [place] [address] Dexa Bone Density Study MR#: [id number] Acct: [id number] Name: YAJAIRA BUNN Rep #: [id number] : 1945 F 79 From: Rodo lua MD PCP: Dr. Se Bryan MD Status: REG CLI Study: Dexa Bone Density Study Date of Exam: 12/11/24 Exam# [id number] Ordering Dr: Se Bryan MD PROCEDURE: DEXA [...] Recommend follow-up as clinically warranted. Reading Location: [place] [address] CC: Dr. Se Bryan MD Project Superintendent: Signed Normal [facility] SCRN MAMM (CAD)W/OMEGA BILATo n 12-11-2024 SCRN MAMM (CAD)W/OMEGA BILAT [facility] Imaging Services [address] [place], [place] [id number] SCRN MAMM (CAD)W/OMEGA BILAT MR#: [id number] Acct: [id number] Name: YAJAIRA BUNN Rep #: [id number] : 1945 F 79 From: Rodo lua MD PCP: Dr. Se Bryan MD Status: REG CLI Study: SCRN MAMM (CAD)W/OMEGA BILAT Date of Exam: 11/27 07/21 Exam# [id number] Ordering Dr: Se Bryan MD EXAM: SCRN [...] be mailed to the patient. Reading Location: [place] [address] CC: Dr. Se Bryan MD Project Superintendent: Signed Normal [facility] Basic Metabolic Profile (BMP )on 12-03-2024 BUN/CRE 17.9 RATIO Normal 10-20 [facility] Comment on above: Performed By: #### L 500.2500 #### [facility] [address] [place], [address] Calcium [Mass/Vol] 10.4 mg/dL Normal 7.6-11.0 [facility] Comment on above: Performed By: #### L 500.2500 #### [facility] [address] [place], [address] Chloride [Moles/Vol] 106 mmol/L Normal 98-108 [facility] Comment on above: Performed By: #### L 500.2500 #### [facility] [address] [place], [address] CO2 [Moles/Vol] 21.3 mmol/L Normal 21.0-32.0 [facility] Comment on above: Performed By: #### L 500.2500 #### [facility] [address] [place], [address] Creatinine [Mass/Vol] 1.05 mg/dL Normal 0.70-1.20 [facility] Comment on above: Performed By: #### L 500.2500 #### [facility] [address] [place], [address] GAP 10 Normal 5-15 [facility] Comment on above: Performed By: #### L 500.2500 #### [facility] [address] [place], [address] GFR/1.73 sq M.predicted among non-blacks MDRD (S/P/Bld) [Vol rate/Area] 55 mL/min/{1.73_m2} Low >60 [facility] Comment on above: Result Comment: mL/m in/1.73m2 CKD-EPI Creatinine Equation (2020) Performed By: #### L 500.2500 #### [facility] [address] [place], [address] Glucose [Mass/Vol] 88 mg/dL Normal 70-99 [facility] Comment on above: Performed By: #### L 500.2500 #### [facility] [address] [place], [place], [address] Potassium [Moles/Vol] 4.5 mmol/L Normal 3.3-5.1 [facility] Comment on above: Performed By: #### L 500.2500 #### [facility] [address] [place], [place], [address] [phone] Sodium [Moles/Vol] 137 mmol/L Normal 133-145 [facility] Comment on above: Performed By: #### L 500.2500 #### [facility] [address] [place], [place], [address] Urea nitrogen [Mass/Vol] 19 mg/dL Normal 4-19 [facility] Comment on above: Performed By: #### L 500.2500 #### [facility] [address] [place], [place], [address] Surgery Visit Reporton 11-20 Surgery Visit Report [facility] [address] [place], [place] [address] OFFICE VISIT Date of Service: 11/20/24 MR#: [id number] Acct: [id number] Name: YAJAIRA BUNN Rep #: [id number] : 1945 Provider: Dr. Je bar MD Age/Sex: 79/F Location: [facility] Status: Signed Intake Vital Signs 10/24/24 15:21 [...] BID 08/18/21 11/20/24 His tory mg-copper 1 hq-mxxaso-tmsrxa capsule (PreserVision AREDS-2) denosumab 60 mg/mL subcutaneous 60 mg subcut [id number] #1 mL 11/20/24 Rx syringe (Prolia) cholecalciferol [...] initially identified by Dr. Jenaro Conroy at [facility] due to elevated calcium levels exceeding 10 [...] (08/27/2024), (more content not included)... Normal [facility] Absolute lymphocyte countOrd ered By: Se Bryan on 11-15-2024 Lymphocytes Auto (Unsp spec) [#/Vol] 1.29 10*3/uL 0.83-4.51 [facility] Absolute neutrophil countOrd ered By: Se Stricklandke on 11-15-2024 Neutrophils (Bld) [#/Vol] 5.0 10*3/uL 2.0-7.7 [facility] Anion gap in Serum or Plasma Ordered By: Se Bryan on 11-15-2024 Anion gap [Moles/Vol] 12 mmol/L 07-11 [facility] Automated lymphocyte count a s percentage of total leukocytesOrdered By: Se Bryan on 11-15-2024 Lymphocytes/100 WBC Auto (Unsp spec) 17.3 % Low [facility] BUN/creatinine ratioOrdered By: Se Bryan on 11-15-2024 Urea nitrogen/Creatinine [Mass ratio] 14.1 mg/mg 12-16 [facility] Basic Metabolic Profile (BMP )on 11-15-2024 BUN/CRE 13.6 RATIO Normal 12-16 [facility] Comment on above: Performed By: #### L 500.4050, L100.0100 #### [facility] [address] [place], [address] Calcium [Mass/Vol] 10.7 mg/dL Normal 7.6-11.0 [facility] Comment on above: Performed By: #### L 500.4050, L100.0100 #### [facility] [address] [place], [address] Chloride [Moles/Vol] 106 mmol/L Normal 98-108 [facility] Comment on above: Performed By: #### L 500.4050, L100.0100 #### [facility] [address] [place], [address] CO2 [Moles/Vol] 20.0 mmol/L Low 21.0-32.0 [facility] Comment on above: Performed By: #### L 500.4050, L100.0100 #### [facility] [address] [place], [address] Creatinine [Mass/Vol] 1.05 mg/dL Normal 0.70-1.20 [facility] Comment on above: Performed By: #### L 500.4050, L100.0100 #### [facility] [address] [place], [address] GAP 12 Normal 5-15 [facility] Comment on above: Performed By: #### L 500.4050, L100.0100 #### [facility] [address] [place], [address] GFR/1.73 sq M.predicted among non-blacks MDRD (S/P/Bld) [Vol rate/Area] 55 mL/min/{1.73_m2} Low >60 [facility] Comment on above: Result Comment: mL/m in/1.73m2 CKD-EPI Creatinine Equation (2020) Performed By: #### L 500.4050, L100.0100 #### [facility] [address] [place], [address] Glucose [Mass/Vol] 116 mg/dL High 70-99 [facility] Comment on above: Performed By: #### L 500.4050, L100.0100 #### [facility] [address] [place], [address] Potassium [Moles/Vol] 4.2 mmol/L Normal 3.3-5.1 [facility] Comment on above: Performed By: #### L 500.4050, L100.0100 #### [facility] [address] [place], [address] Sodium [Moles/Vol] 138 mmol/L Normal 133-145 [facility] Comment on above: Performed By: #### L 500.4050, L100.0100 #### [facility] [address] [place], [address] Urea nitrogen [Mass/Vol] 14 mg/dL Normal 4-19 [facility] Comment on above: Performed By: #### L 500.4050, L100.0100 #### [facility] [address] [place], [address] Basophil percentageOrdered B y: Se Bryan on 11-15-2024 Basophils/100 WBC (Bld) 0.5 % 0-[address] [facility] Bilirubin, totalOrdered By: Se Bryan on 11-15-2024 Bilirubin [Mass/Vol] 0.28 mg/dL 0.00-1.30 [facility] CBC W/Diff, Automatedon 10-28 Absolute Lymph 1.29 X10 3/uL Normal 0.83-4.51 [facility] Comment on above: Order Comment: Order Date: 07/05/24Order Info: [id number] - CBCD Performed By: #### L 500.2500 #### [facility] [address] [place], [address] Absolute Neut 5.0 X10 3/uL Normal 2.0-7.7 [facility] Comment on above: Order Comment: Order Date: 07/05/24Order Info: [id number] - CBCD Performed By: #### L 500.2500 #### [facility] [address] [place], [address] Basophils/100 WBC (Bld) 0.5 % Normal 0-[address] [facility] Comment on above: Order Comment: Order Date: 07/05/24Order Info: [id number] - CBCD Performed By: #### L 500.2500 #### [facility] [address] [place], [address] Eosinophils/100 WBC (Bld) 3.6 % Normal 0-5 [facility] Comment on above: Order Comment: Order Date: 07/05/24Order Info: [id number] - CBCD Performed By: #### L 500.2500 #### [facility] [address] [place], [address] Erythrocyte distribution width (RBC) [Ratio] 12.3 % Normal 11.6-14.6 [facility] Comment on above: Order Comment: Order Date: 07/05/24Order Info: [id number] - CBCD Performed By: #### L 500.2500 #### [facility] [address] [place], [address] Hematocrit (Bld) [Volume fraction] 32.5 % Low 37-47 [facility] Comment on above: Order Comment: Order Date: 07/05/24Order Info: [id number]- - CBCD Performed By: #### L 500.2500 #### [facility] [address] [place], [address] Hemoglobin (Bld) [Mass/Vol] 11.3 g/dL Low 12.0-15.0 [facility] Comment on above: Order Comment: Order Date: 07/05/24Order Info: [id number]- - CBCD Performed By: #### L 500.2500 #### [facility] [address] [place], [address] IG% 0.400 Normal 0.0-0.9 [facility] Comment on above: Order Comment: Order Date: 07/05/24Order Info: [id number] - CBCD Result Comment: IG% - Immature Granulocytes (promyelocytes, myelocytes and metamyelocytes) > 1% indicates that a LEFT SHIFT is Present. Performed By: #### L 500.2500 #### [facility] [address] [place], [address] Lymphocytes/100 WBC (Bld) 17.3 % Low 19-41 [facility] Comment on above: Order Comment: Order Date: 07/05/24Order Info: [id number] - CBCD Performed By: #### L 500.2500 #### [facility] [address] [place], [address] MCH (RBC) [Entitic mass] 32.2 pg High 27.0-32.0 [facility] Comment on above: Order Comment: Order Date: 07/05/24Order Info: [id number] - CBCD Performed By: #### L 500.2500 #### [facility] [address] [place], [address] MCHC (RBC) [Mass/Vol] 34.8 g/dL Normal 32-36 [facility] Comment on above: Order Comment: Order Date: 07/05/24Order Info: [id number] - CBCD Performed By: #### L 500.2500 #### [facility] [address] [place], [address] MCV (RBC) [Entitic vol] 92.6 fL Normal 81-99 [facility] Comment on above: Order Comment: Order Date: 07/05/24Order Info: 4-1 - CBCD Performed By: #### L 500.2500 #### [facility] [address] [place], [address] Monocytes/100 WBC (Bld) 11.0 % High 0-10 [facility] Comment on above: Order Comment: Order Date: 07/05/24Order Info: [id number] - CBCD Performed By: #### L 500.2500 #### [facility] [address] [place], [address] Neutrophils/100 WBC (Bld) 67.2 % Normal 47-70 [facility] Comment on above: Order Comment: Order Date: 07/05/24Order Info: [id number] - CBCD Performed By: #### L 500.2500 #### [facility] [address] [place], [address] Nucleated RBC (Bld) [#/Vol] 0 10*3/uL Normal 0-5 [facility] Comment on above: Order Comment: Order Date: 07/05/24Order Info: [id number] - CBCD Performed By: #### L 500.2500 #### [facility] [address] [place], [address] Platelet mean volume (Bld) [Entitic vol] 10.0 fL Normal 6.2-12.0 [facility] Comment on above: Order Comment: Order Date: 07/05/24Order Info: 018- - CBCD Performed By: #### L 500.2500 #### [facility] [address] [place], [address] Platelets (Bld) [#/Vol] 256 10*3/uL Normal 150-450 [facility] Comment on above: Order Comment: Order Date: 07/05/24Order Info: 183- - CBCD Performed By: #### L 500.2500 #### [facility] [address] [place], [address] RBC (Bld) [#/Vol] 3.51 10*6/uL Low 4.2-5.4 [facility] Comment on above: Order Comment: Order Date: 07/05/24Order Info: 018- - CBCD Performed By: #### L 500.2500 #### [facility] [address] [place], [address] RDW SD 41.8 fl Normal 35.1-43.9 [facility] Comment on above: Order Comment: Order Date: 07/05/24Order Info: 018- - CBCD Performed By: #### L 500.2500 #### [facility] [address] [place], [address] WBC (Bld) [#/Vol] 7.5 10*3/uL Normal 4.4-11.0 [facility] Comment on above: Order Comment: Order Date: 07/05/24Order Info: [id number] - CBCD Performed By: #### L 500.2500 #### [facility] [address] [place], [address] Calculated very low density lipoprotein (VLDL) cholesterol measurementOrdered By: Se Bryan on 11-15-2024 Calculated very low density lipoprotein (VLDL) cholesterol measurement 33 mg/dL 5-40 [facility] Carbon dioxide, total [Moles /volume] in Central venous bloodOrdered By: Se Bryan on 11-15-2024 CO2 [Moles/Vol] 20.1 mmol/L Low 21.0-32.0 [facility] Chloride assayOrdered By: Ruht Bryan on 11-15-2024 Chloride [Moles/Vol] 106 mmol/L 98-108 [facility] Comprehensive Metabolic Prof ilon 11-15-2024 Albumin [Mass/Vol] 4.3 g/dL Normal 3.4-4.8 [facility] Comment on above: Order Comment: Order Date: 07/05/24Order Info: [id number] - CMPOrder Info: [id number] - LIPIDOrder Info: [id number] - TSH Performed By: #### L 500.2500 #### [facility] [address] [place], [place], [address] Albumin/Globulin [Mass ratio] 1.7 {ratio} Normal 0.9-2.4 [facility] Comment on above: Order Comment: Order Date: 07/05/24Order Info: [id number] - CMPOrder Info: [id number] - LIPIDOrder Info: [id number] - TSH Performed By: #### L 500.2500 #### [facility] [address] [place], [address] ALK PHOS 55 U/L Normal 35-104 [facility] Comment on above: Order Comment: Order Date: 07/05/24Order Info: [id number] - CMPOrder Info: [id number] - LIPIDOrder Info: [id number] - TSH Performed By: #### L 500.2500 #### [facility] [address] [place], [address] ALT [Catalytic activity/Vol] 17 U/L Normal <=34 [facility] Comment on above: Order Comment: Order Date: 07/05/24Order Info: 86-1 - CMPOrder Info: [id number] - LIPIDOrder Info: 3 - TSH Performed By: #### L 500.2500 #### [facility] [address] [place], [address] AST [Catalytic activity/Vol] 22 U/L Normal <=31 [facility] Comment on above: Order Comment: Order Date: 07/05/24Order Info: 86-1 - CMPOrder Info: [id number] - LIPIDOrder Info: 3 - TSH Performed By: #### L 500.2500 #### [facility] [address] [place], [address] Bilirubin [Mass/Vol] 0.28 mg/dL Normal 0.00-1.30 [facility] Comment on above: Order Comment: Order Date: 07/05/24Order Info: [id number]- - CMPOrder Info: - LIPIDOrder Info: 3 - TSH Performed By: #### L 500.2500 #### [facility] [address] [place], [address] BUN/CRE 14.1 RATIO Normal 10-20 [facility] Comment on above: Order Comment: Order Date: 07/05/24Order Info: 86- - CMPOrder Info: [id number] - LIPIDOrder Info: [id number] - TSH Performed By: #### L 500.2500 #### [facility] [address] [place], [address] Calcium [Mass/Vol] 11.0 mg/dL Normal 7.6-11.0 [facility] Comment on above: Order Comment: Order Date: 07/05/24Order Info: 86-1 - CMPOrder Info: [id number] - LIPIDOrder Info: 3 - TSH Performed By: #### L 500.2500 #### [facility] [address] [place], [address] Chloride [Moles/Vol] 106 mmol/L Normal 98-108 [facility] Comment on above: Order Comment: Order Date: 07/05/24Order Info: 86-1 - CMPOrder Info: [id number] - LIPIDOrder Info: [id number] - TSH Performed By: #### L 500.2500 #### [facility] [address] [place], [address] CO2 [Moles/Vol] 20.1 mmol/L Low 21.0-32.0 [facility] Comment on above: Order Comment: Order Date: 07/05/24Order Info: 86-1 - CMPOrder Info: [id number] - LIPIDOrder Info: [id number] - TSH Performed By: #### L 500.2500 #### [facility] [address] [place], [address] Creatinine [Mass/Vol] 1.02 mg/dL Normal 0.70-1.20 [facility] Comment on above: Order Comment: Order Date: 07/05/24Order Info: 86-1 - CMPOrder Info: [id number] - LIPIDOrder Info: 6-3 - TSH Performed By: #### L 500.2500 #### [facility] [address] [place], [address] GAP 12 Normal 5-15 [facility] Comment on above: Order Comment: Order Date: 07/05/24Order Info: 86-1 - CMPOrder Info: [id number] - LIPIDOrder Info: [id number] - TSH Performed By: #### L 500.2500 #### [facility] [address] [place], [address] GFR/1.73 sq M.predicted among non-blacks MDRD (S/P/Bld) [Vol rate/Area] 57 mL/min/{1.73_m2} Low >60 [facility] Comment on above: Order Comment: Order Date: 07/05/24Order Info: 86-1 - CMPOrder Info: [id number] - LIPIDOrder Info: [id number] - TSH Result Comment: mL/m in/1.73m2 CKD-EPI Creatinine Equation (2020) Performed By: #### L 500.2500 #### [facility] [address] [place], [address] Globulin (S) [Mass/Vol] 2.5 g/dL Normal 2.2-4.2 [facility] Comment on above: Order Comment: Order Date: 07/05/24Order Info: 86-1 - CMPOrder Info: [id number] - LIPIDOrder Info: [id number] - TSH Performed By: #### L 500.2500 #### [facility] [address] [place], [address] Glucose [Mass/Vol] 87 mg/dL Normal 70-99 [facility] Comment on above: Order Comment: Order Date: 07/05/24Order Info: 86-1 - CMPOrder Info: [id number] - LIPIDOrder Info: 6-3 - TSH Performed By: #### L 500.2500 #### [facility] [address] [place], [address] Potassium [Moles/Vol] 4.1 mmol/L Normal 3.3-5.1 [facility] Comment on above: Order Comment: Order Date: 07/05/24Order Info: 86-1 - CMPOrder Info: [id number] - LIPIDOrder Info: [id number] - TSH Performed By: #### L 500.2500 #### [facility] [address] [place], [address] Sodium [Moles/Vol] 138 mmol/L Normal 133-145 [facility] Comment on above: Order Comment: Order Date: 07/05/24Order Info: 86-1 - CMPOrder Info: [id number] - LIPIDOrder Info: [id number] - TSH Performed By: #### L 500.2500 #### [facility] [address] [place], [address] T PROT 6.8 g/dL Normal 5.9-8.4 [facility] Comment on above: Order Comment: Order Date: 07/05/24Order Info: [id number] - CMPOrder Info: [id number] - LIPIDOrder Info: [id number] - TSH Performed By: #### L 500.2500 #### [facility] [address] [place], [place], [address] Urea nitrogen [Mass/Vol] 14 mg/dL Normal - [facility] Comment on above: Order Comment: Order Date: 07/05/24Order Info: [id number] - CMPOrder Info: [id number] - LIPIDOrder Info: [id number] - TSH Performed By: #### L 500.2500 #### [facility] [address] [place], [place], [address] Eosinophil percentageOrdered By: Se Bryan on 11-15-2024 Eosinophils/100 WBC (Bld) 3.6 % 0-5 [facility] Erythrocyte distribution wid th ratioOrdered By: Se Bryan on 11-15-2024 Erythrocyte distribution width (RBC) [Ratio] 12.3 % 11.6-14.6 [facility] Erythrocyte distribution wid th standard deviationOrdered By: Se Bryan on 11-15-2024 Erythrocyte distribution width (RBC) [Ratio] 41.8 fl 35.1-43.9 [facility] Glomerular filtration rate ( GFR) estimation/1.73 sq m using serum, plasma, or whole bOrdered By: Se Bryan on 11-15-2024 GFR/1.73 sq M.predicted among non-blacks MDRD (S/P/Bld) [Vol rate/Area] 57 mL/min/{1.73_m2} Low >60 [facility] Comment on above: mL/min/1.73m2 CKD-EP I Creatinine Equation (2020) Hematocrit Auto (Bld) [Volum e fraction]Ordered By: Se Bryan on 11-15-2024 Hematocrit (Bld) [Volume fraction] 32.5 % Low 37-47 [facility] Hemoglobin measurementOrdere d By: Se Bryan on 11-15-2024 Hemoglobin (Bld) [Mass/Vol] 11.3 g/dL Low 12.0-15.0 [facility] Immature granulocytes/100 WB C Auto (Bld)Ordered By: Se Bryan on 11-15-2024 Immature granulocytes/100 WBC (Bld) 0.400 % 0.0-0.9 [facility] Comment on above: IG% - Immature Granu locytes (promyelocytes, myelocytes and metamyelocytes) > 1% indicates that a LEFT SHIFT is Present. LDL calc ser/plasOrdered By: Se Bryan on 11-15-2024 Cholesterol in LDL [Mass/Vol] 79 mg/dL [facility] Comment on above: Txmgwjyukp=340-094 m g/dL & Higher Ozeh=908 mg/dL or greaterFriedwald Equation for LDL-C Laboratory - Chemistry and C hemistry - challengeOrdered By: Se Randi on 11-15-2024 AST [Catalytic activity/Vol] 22 U/L <32 [facility] Lipid Profileon 11-15-2024 CHOL:HDL 2.56 Normal [facility] Comment on above: Order Comment: Order Date: 07/05/24Order Info: [id number] - CMPOrder Info: [id number] - LIPIDOrder Info: [id number] - TSH Performed By: #### L 500.2500 #### [facility] [address] [place], [place], [id number] (407) Cholesterol [Mass/Vol] 184 mg/dL Normal <=200 [facility] Comment on above: Order Comment: Order Date: 07/05/24Order Info: [id number] - CMPOrder Info: [id number] - LIPIDOrder Info: [id number] - TSH Result Comment: Chol esterol level, Desirable <200 mg/dL Borderline high cholesterol 200-239 mg/dL High cholesterol >=240 mg/dL Recommendations of the NCEP Adult Treatment Panel for the following risk-cutoff thresholds for the [place] population. Performed By: #### L 500.2500 #### [facility] [address] [place], [address] Cholesterol in HDL [Mass/Vol] 72 mg/dL Normal [facility] Comment on above: Order Comment: Order Date: 07/05/24Order Info: 86-1 - CMPOrder Info: [id number] - LIPIDOrder Info: [id number] - TSH Result Comment: Fay onal Cholesterol Education Program (NCEP) guidelines: <40 mg/dL: Low HDL-cholesterol (major risk factor for CHD) >= 60 mg/dL: High HDL-cholesterol (negative risk factor for CHD) HDL-cholesterol is affected by a number of factors, e.g. smoking, exercise, hormones, sex and age. Performed By: #### L 500.2500 #### [facility] [address] [place], [address] Cholesterol in LDL [Mass/Vol] 79 mg/dL Normal [facility] Comment on above: Order Comment: Order Date: 07/05/24Order Info: [id number]- - CMPOrder Info: [id number] - LIPIDOrder Info: 6-3 - TSH Result Comment: Bord sbssbf=806-186 mg/dL Higher Pyai=183 mg/dL or greater Friedwald Equation for LDL-C Performed By: #### L 500.2500 #### [facility] [address] [place], [address] Cholesterol in VLDL [Mass/Vol] 33 mg/dL Normal 5-40 [facility] Comment on above: Order Comment: Order Date: 07/05/24Order Info: [id number] - CMPOrder Info: [id number] - LIPIDOrder Info: 63 - TSH Performed By: #### L 500.2500 #### [facility] [address] [place], [address] Triglyceride [Mass/Vol] 163 mg/dL Normal [facility] Comment on above: Order Comment: Order Date: 07/05/24Order Info: [id number]- - CMPOrder Info: [id number] - LIPIDOrder Info: 6-3 - TSH Result Comment: The drugs N-Acetylcysteine and Metamizole may falsely depress this assay. Normal range: <150 mg/dL Borderline High: 150-199 mg/dL High: 200-499 mg/dL Very High: >500 mg/dL Performed By: #### L 500.2500 #### [facility] [address] [place], [place], [address] MCV (mean corpuscular volume ) determinationOrdered By: Se Stricklandke on 11-15-2024 MCV (RBC) [Entitic vol] 92.6 fL 81-[address] [facility] Mean corpuscular hemoglobin (MCH) determinationOrdered By: Se Stricklandke on 11-15-2024 MCH (RBC) [Entitic mass] 32.2 pg High 27.0-32.0 [facility] Mean corpuscular hemoglobin concentration (MCHC) determinationOrdered By: Se Stricklandke on 11-15-2024 MCHC (RBC) [Mass/Vol] 34.8 g/dL 32-36 [facility] Mean platelet volume determi nationOrdered By: Se Stricklandke on 11-15-2024 Platelet mean volume (Bld) [Entitic vol] 10.0 fL 6.2-12.0 [facility] Monocyte percentageOrdered B y: Se Stricklandke on 11-15-2024 Monocytes/100 WBC (Bld) 11.0 % High 0-[address] [facility] Neutrophil percentageOrdered By: Se Stricklandke on 11-15-2024 Neutrophils/100 WBC (Bld) 67.2 % 47-70 [facility] Nucleated red blood cell per centageOrdered By: Se Stricklandke on 11-15-2024 Nucleated RBC/100 WBC (Bld) [Ratio] 0 % 0-5 [facility] PTHINon 11-15-2024 PTH 249 pg/mL High 11-61 [facility] Comment on above: Performed By: #### L 500.2500 #### [facility] [address] [place], [place], [address] Platelet countOrdered By: Ruth Bryan on 11-15-2024 Platelets (Bld) [#/Vol] 256 10*3/uL 150-450 [facility] Potassium measurement (mass/ volume)Ordered By: Se Bryan on 11-15-2024 Potassium (Unsp spec) [Mass/Vol] 4.1 mmol/L 3.3-5.1 [facility] RBC Auto (Bld) [#/Vol]Ordere d By: Se Bryan on 11-15-2024 RBC (Bld) [#/Vol] 3.51 10*6/uL Low 4.2-5.4 [facility] Screening total cholesterol/ high density lipoprotein (HDL) cholesterol ratioOrdered By: Se Bryan on 11-15-2024 Cholesterol.total/Mirian sterol in HDL [Mass ratio] 2.56 {ratio} [facility] Serum creatinine measurement (mass/volume)Ordered By: Se Bryan on 11-15-2024 Creatinine [Mass/Vol] 1.02 mg/dL 0.70-1.20 [facility] Serum globulin measurementOr dered By: Se Bryan on 11-15-2024 Globulin (S) [Mass/Vol] 2.5 g/dL 2.2-4.[address] [facility] Serum glucose measurement (m ass/volume)Ordered By: Se Bryan on 11-15-2024 Glucose [Mass/Vol] 87 mg/dL 70-99 [facility] Serum or plasma alanine maciel otransferase (ALT) measurementOrdered By: Se Bryan on 11-15-2024 ALT [Catalytic activity/Vol] 17 U/L <35 [facility] Serum or plasma albumin rodriguez urement (mass/volume)Ordered By: Se Bryan on 11-15-2024 Albumin [Mass/Vol] 4.3 g/dL 3.4-4.8 [facility] Serum or plasma albumin/glob ulin mass ratioOrdered By: Se Bryan on 11-15-2024 Albumin/Globulin [Mass ratio] 1.7 {ratio} 0.9-2.4 [facility] Serum or plasma alkaline ana sphatase measurementOrdered By: Se Bryan on 11-15-2024 ALP [Catalytic activity/Vol] 55 U/L 35-104 [facility] Serum or plasma calcium rodriguez urement (mass/volume)Ordered By: eS Bryan on 11-15-2024 Calcium [Mass/Vol] 11.0 mg/dL 7.6-11.0 [facility] Serum or plasma cholesterol in HDL measurement (mass/volume)Ordered By: Se Bryan on 11-15-2024 Cholesterol in HDL [Mass/Vol] 72 mg/dL >40 [facility] Comment on above: National Cholesterol Education Program (NCEP) guidelines:<40 mg/dL: Low HDL-cholesterol (major risk factor for CHD)>= 60 mg/dL: High HDL-cholesterol (negative risk factor for CHD)HDL-cholesterol is affected by a number of factors, e.g. smoking, exercise, hormones, sex and age. Serum or plasma cholesterol measurement (mass/volume)Ordered By: Se Bryan on 11-15-2024 Cholesterol [Mass/Vol] 184 mg/dL <201 [facility] Comment on above: Cholesterol level, D esirable <200 mg/dLBorderline high cholesterol 200-239 mg/dLHigh cholesterol >=240 mg/dLRecommendations of the NCEP Adult Treatment Panel for the following risk-cutoff thresholds for the [place] population. Serum or plasma urea nitroge n measurement (mass/volume)Ordered By: Se Bryan on 11-15-2024 Urea nitrogen [Mass/Vol] 14 mg/dL - [facility] Sodium levelOrdered By: Paige Bryan on 11-15-2024 Sodium [Moles/Vol] 138 mmol/L 133-145 [facility] TSH DL <= 0.005 mIU/L QnOrde red By: Se Bryan on 11-15-2024 TSH Qn 1.730 uIU/mL 0.300-4.200 [facility] Thyroid Stim Hormone (TSH)on 11-15-2024 TSH 1.730 uIU/mL Normal 0.300-4.200 [facility] Comment on above: Order Comment: Order Date: 07/05/24Order Info: [id number] - CMPOrder Info: [id number] - LIPIDOrder Info: [id number] - TSH Performed By: #### L 500.2500 #### [facility] [address] [place], [address] Total proteinOrdered By: Amelia Bryan on 11-15-2024 Protein [Mass/Vol] 6.8 g/dL 5.9-8.4 [facility] Triglycerides measurementOrd ered By: Se Bryan on 11-15-2024 Triglyceride [Mass/Vol] 163 mg/dL <[address] [facility] Comment on above: The drugs N-Acetylcy steine and Metamizole may falsely depress this assay. Normal range: <150 mg/dLBorderline High: 150-199 mg/dLHigh: 200-499 mg/dLVery High: >500 mg/dL White blood cell (WBC) count Ordered By: Se Bryan on 11-15-2024 WBC (Bld) [#/Vol] 7.5 10*3/uL 4.4-11.0 [facility] Parathyroid Scanon Parathyroid scan [facility] Imaging Services [address] [place] [address] Parathyroid Scan MR#: [id number] Acct: [id number] Name: YAJAIRA BUNN Rep #: [id number] : 1945 F 79 From: Richard Porter PCP: Dr. Se Bryan MD Status: REG CLI Study: Parathyroid Scan Date of Exam: 11/05/24 Exam# [id number] Ordering Dr: Guicho Quezada MD PROCEDURE: PARATHYROID [...] a left inferior parathyroid adenoma. Reading Location: [place] [address] CC: OMA Montes; Dr. Se Bryan MD; Dr. Guicho Quezada MD Project Superintendent: Signed Normal [facility] Thyroidon 11-04-2024 Thyroid [facility] Imaging Services [address] [place] [address] Thyroid MR#: [id number] Acct: [id number] Name: YAJAIRA BUNN Rep #: [id number] : 1945 F 79 From: Rodo lua MD PCP: Dr. Se Bryan MD Status: REG CLI Study: Thyroid Date of Exam: 11/04/24 Exam# [id number] Ordering Dr: Guicho Quezada MD PROCEDURE: THYROID [...] no more than 2 nodules. Reading Location: [id number] CC: Dr. Se Bryan MD; Dr. Guicho Quezada MD Project Superintendent: Signed Normal [facility] Endocrinology Visit Reporton 10-24-2024 Endocrinology Visit Report [facility] [address] [place] [address]. 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 Normal [facility] Anion gap in Serum or Plasma Ordered By: Guicho Quezada on 10-11-2024 Anion gap [Moles/Vol] 11 mmol/L 5-15 [facility] BUN/creatinine ratioOrdered By: Guicho Quezada on 10-11-2024 Urea nitrogen/Creatinine [Mass ratio] 15.5 mg/mg 10-20 [facility] Bilirubin, totalOrdered By: Guicho Quezada on 10-11-2024 Bilirubin [Mass/Vol] 0.22 mg/dL 0.00-1.30 [facility] Carbon dioxide, total [Moles /volume] in Central venous bloodOrdered By: Guicho Quezada on 10-11-2024 CO2 [Moles/Vol] 22.6 mmol/L 21.0-32.0 [facility] Chloride assayOrdered By: Demar Quezada on 10-11-2024 Chloride [Moles/Vol] 104 mmol/L 98-108 [facility] Comprehensive Metabolic Prof ilon 10-11-2024 Albumin [Mass/Vol] 4.5 g/dL Normal 3.4-4.8 [facility] Comment on above: Performed By: #### L 500.2500 #### [facility] [address] [place], [address] Albumin/Globulin [Mass ratio] 1.7 {ratio} Normal 0.9-2.4 [facility] Comment on above: Performed By: #### L 500.2500 #### [facility] [address] [place], [address] ALK PHOS 71 U/L Normal 35-104 [facility] Comment on above: Performed By: #### L 500.2500 #### [facility] [address] [place], [address] ALT [Catalytic activity/Vol] 18 U/L Normal <=34 [facility] Comment on above: Performed By: #### L 500.2500 #### [facility] [address] [place], [address] AST [Catalytic activity/Vol] 21 U/L Normal <=31 [facility] Comment on above: Performed By: #### L 500.2500 #### [facility] [address] [place], [address] Bilirubin [Mass/Vol] 0.22 mg/dL Normal 0.00-1.30 [facility] Comment on above: Performed By: #### L 500.2500 #### [facility] [address] [place], [address] BUN/CRE 15.5 RATIO Normal 10-20 [facility] Comment on above: Performed By: #### L 500.2500 #### [facility] [address] [place], [address] Calcium [Mass/Vol] 12.1 mg/dL High 7.6-11.0 [facility] Comment on above: Performed By: #### L 500.2500 #### [facility] [address] [place], [address] Chloride [Moles/Vol] 104 mmol/L Normal 98-108 [facility] Comment on above: Performed By: #### L 500.2500 #### [facility] [address] [place], [address] CO2 [Moles/Vol] 22.6 mmol/L Normal 21.0-32.0 [facility] Comment on above: Performed By: #### L 500.2500 #### [facility] [address] [place], [address] Creatinine [Mass/Vol] 1.07 mg/dL Normal 0.70-1.20 [facility] Comment on above: Performed By: #### L 500.2500 #### [facility] [address] [place], [address] GAP 11 Normal 5-15 [facility] Comment on above: Performed By: #### L 500.2500 #### [facility] [address] [place], [address] GFR/1.73 sq M.predicted among non-blacks MDRD (S/P/Bld) [Vol rate/Area] 53 mL/min/{1.73_m2} Low >60 [facility] Comment on above: Result Comment: mL/m in/1.73m2 CKD-EPI Creatinine Equation (2020) Performed By: #### L 500.2500 #### [facility] [address] [place], [address] Globulin (S) [Mass/Vol] 2.6 g/dL Normal 2.2-4.2 [facility] Comment on above: Performed By: #### L 500.2500 #### [facility] [address] [place], [address] Glucose [Mass/Vol] 100 mg/dL High 70-99 [facility] Comment on above: Performed By: #### L 500.2500 #### [facility] [address] [place], [address] Potassium [Moles/Vol] 4.3 mmol/L Normal 3.3-5.1 [facility] Comment on above: Performed By: #### L 500.2500 #### [facility] [address] [place], [address] Sodium [Moles/Vol] 137 mmol/L Normal 133-145 [facility] Comment on above: Performed By: #### L 500.2500 #### [facility] [address] [place], [address] T PROT 7.1 g/dL Normal 5.9-8.4 [facility] Comment on above: Performed By: #### L 500.2500 #### [facility] [address] [place], [address] Urea nitrogen [Mass/Vol] 17 mg/dL Normal 4-19 [facility] Comment on above: Performed By: #### L 500.2500 #### [facility] [address] [place], [address] Glomerular filtration rate ( GFR) estimation/1.73 sq m using serum, plasma, or whole bOrdered By: Guicho Quezada on 10-11-2024 GFR/1.73 sq M.predicted among non-blacks MDRD (S/P/Bld) [Vol rate/Area] 53 mL/min/{1.73_m2} Low >60 [facility] Comment on above: mL/min/1.73m2 CKD-EP I Creatinine Equation (2020) Laboratory - Chemistry and C hemistry - challengeOrdered By: Guicho Quezada on 10-11-2024 AST [Catalytic activity/Vol] 21 U/L <32 [facility] Potassium measurement (mass/ volume)Ordered By: Guicho Quezada on 10-11-2024 Potassium (Unsp spec) [Mass/Vol] 4.3 mmol/L 3.3-5.1 [facility] Serum creatinine measurement (mass/volume)Ordered By: Guicho Quezada on 10-11-2024 Creatinine [Mass/Vol] 1.07 mg/dL 0.70-1.20 [facility] Serum globulin measurementOr dered By: Guicho Quezada on 10-11-2024 Globulin (S) [Mass/Vol] 2.6 g/dL 2.2-4.[address] [facility] Serum glucose measurement (m ass/volume)Ordered By: Guicho Quezada on 10-11-2024 Glucose [Mass/Vol] 100 mg/dL High 70-99 [facility] Serum or plasma alanine maciel otransferase (ALT) measurementOrdered By: Guicho Quezada on 10-11-2024 ALT [Catalytic activity/Vol] 18 U/L <35 [facility] Serum or plasma albumin rodriguez urement (mass/volume)Ordered By: Guicho Quezada on 10-11-2024 Albumin [Mass/Vol] 4.5 g/dL 3.4-4.8 [facility] Serum or plasma albumin/glob ulin mass ratioOrdered By: Guicho Quezada on 10-11-2024 Albumin/Globulin [Mass ratio] 1.7 {ratio} 0.9-2.4 [facility] Serum or plasma alkaline ana sphatase measurementOrdered By: Guicho Quezada on 10-11-2024 ALP [Catalytic activity/Vol] 71 U/L 35-104 [facility] Serum or plasma calcium rodriguez urement (mass/volume)Ordered By: Guicho Quezada on 10-11-2024 Calcium [Mass/Vol] 12.1 mg/dL High 7.6-11.0 [facility] Serum or plasma urea nitroge n measurement (mass/volume)Ordered By: Guicho Quezada on 10-11-2024 Urea nitrogen [Mass/Vol] 17 mg/dL 4-19 [facility] Sodium levelOrdered By: Guicho Quezada on 10-11-2024 Sodium [Moles/Vol] 137 mmol/L 133-145 [facility] Total proteinOrdered By: Levon Quezada on 10-11-2024 Protein [Mass/Vol] 7.1 g/dL 5.9-8.4 [facility] 12 Lead EKGon 08-28-2024 12 Lead EKG [facility] Cardiovascular Services [address] [place] [address] 12 Lead EKG 08/28/24 1933 MR#: [id number] Acct: [id number] Name: YAJAIRA BUNN Rep #: [id number] : 1945 78 From: Joe Velasco MD [...] ECG Confirmed by BRIDGETTE VALLE, JOE ([id number]), acquisitions editor SAMIRA ERNST ([id number]) on 08/29/2024 10:07:31 AM Referred By: Confirmed By: JOE VELASCO MD 08/29/24 1007 Date Joe Velasco MD CC: Dr. Se Bryan MD; Dr. Lorne Cherry MD Signed Normal [facility] Absolute lymphocyte countOrd ered By: Lorne Cherry on 08-28-2024 Lymphocytes Auto (Unsp spec) [#/Vol] 1.62 10*3/uL 0.83-4.51 [facility] Absolute neutrophil countOrd ered By: Lorne Cherry on 08-28-2024 Neutrophils (Bld) [#/Vol] 5.7 10*3/uL 2.0-7.7 [facility] Anion gap in Serum or Plasma Ordered By: Lorne Cherry on 08-28-2024 Anion gap [Moles/Vol] 14 mmol/L - [facility] Automated lymphocyte count a s percentage of total leukocytesOrdered By: Lorne Cherry on 08-28-2024 Lymphocytes/100 WBC Auto (Unsp spec) 19.2 % 19-41 [facility] BUN/creatinine ratioOrdered By: Lorne Cherry on 08-28-2024 Urea nitrogen/Creatinine [Mass ratio] 16.1 mg/mg 10-20 [facility] Basic Metabolic Profile (BMP )on 08-28-2024 BUN Normal 4-19 [facility] Comment on above: Result Comment: Canc elled via OM: MD Ordered Performed By: #### L 500.2500 #### [facility] [address] [place], [address] BUN/CRE Normal 10-20 [facility] Comment on above: Result Comment: Canc elled via OM: MD Ordered Performed By: #### L 500.2500 #### [facility] [address] [place], [address] Calcium Normal 7.6-11.0 [facility] Comment on above: Result Comment: Canc elled via OM: MD Ordered Performed By: #### L 500.2500 #### [facility] [address] [place], [address] CL Normal 98-108 [facility] Comment on above: Result Comment: Canc elled via OM: MD Ordered Performed By: #### L 500.2500 #### [facility] [address] [place], [address] CO2 Normal 21.0-32.0 [facility] Comment on above: Result Comment: Canc elled via OM: MD Ordered Performed By: #### L 500.2500 #### [facility] [address] [place], [address] CREAT,SERUM Normal 0.70-1.20 [facility] Comment on above: Result Comment: Canc elled via OM: MD Ordered Performed By: #### L 500.2500 #### [facility] [address] [place], [address] eGFR Normal >60 [facility] Comment on above: Result Comment: Canc elled via OM: MD Ordered Performed By: #### L 500.2500 #### [facility] [address] [place], [address] GAP Normal 5-15 [facility] Comment on above: Result Comment: Canc elled via OM: MD Ordered Performed By: #### L 500.2500 #### [facility] [address] [place], [address] GLU Normal 70-99 [facility] Comment on above: Result Comment: Canc elled via OM: MD Ordered Performed By: #### L 500.2500 #### [facility] [address] [place], [address] Potassium Normal 3.3-5.1 [facility] Comment on above: Result Comment: Canc elled via OM: MD Ordered Performed By: #### L 500.2500 #### [facility] [address] [place], [address] Basic Metabolic Profile (BMP) Normal 133-145 [facility] Comment on above: Result Comment: Canc elled via OM: MD Ordered Performed By: #### L 500.2500 #### [facility] [address] [place], [address] Basophil percentageOrdered B y: Lorne Cherry on 08-28-2024 Basophils/100 WBC (Bld) 0.6 % 0-[address] [facility] Bilirubin Test strip Ql (U)O rdered By: Lorne Cherry on 08-28-2024 Bilirubin Ql (U) Negative Negative [facility] Bilirubin, totalOrdered By: Lorne Cherry on 08-28-2024 Bilirubin [Mass/Vol] 0.30 mg/dL 0.00-1.30 [facility] CBC W/Diff, Automatedon Absolute Lymph 1.62 X10 3/uL Normal 0.83-4.51 [facility] Comment on above: Performed By: #### L 500.4050, L100.0100 #### [facility] [address] [place], [address] Absolute Neut 5.7 X10 3/uL Normal 2.0-7.7 [facility] Comment on above: Performed By: #### L 500.4050, L100.0100 #### [facility] [address] [place], [address] Basophils/100 WBC (Bld) 0.6 % Normal 0-[address] [facility] Comment on above: Performed By: #### L 500.4050, L100.0100 #### [facility] [address] [place], [address] Eosinophils/100 WBC (Bld) 2.7 % Normal 0-5 [facility] Comment on above: Performed By: #### L 500.4050, L100.0100 #### [facility] [address] [place], [address] Erythrocyte distribution width (RBC) [Ratio] 11.9 % Normal 11.6-14.6 [facility] Comment on above: Performed By: #### L 500.4050, L100.0100 #### [facility] [address] [place], [address] Hematocrit (Bld) [Volume fraction] 35.6 % Low 37-47 [facility] Comment on above: Performed By: #### L 500.4050, L100.0100 #### [facility] [address] [place], [address] Hemoglobin (Bld) [Mass/Vol] 12.3 g/dL Normal 12.0-15.0 [facility] Comment on above: Performed By: #### L 500.4050, L100.0100 #### [facility] [address] [place], [address] IG% 0.500 Normal 0.0-0.9 [facility] Comment on above: Result Comment: IG% - Immature Granulocytes (promyelocytes, myelocytes and metamyelocytes) > 1% indicates that a LEFT SHIFT is Present. Performed By: #### L 500.4050, L100.0100 #### [facility] [address] [place], [address] Lymphocytes/100 WBC (Bld) 19.2 % Normal 19-41 [facility] Comment on above: Performed By: #### L 500.4050, L100.0100 #### [facility] [address] [place], [address] MCH (RBC) [Entitic mass] 32.5 pg High 27.0-32.0 [facility] Comment on above: Performed By: #### L 500.4050, L100.0100 #### [facility] [address] [place], [address] MCHC (RBC) [Mass/Vol] 34.6 g/dL Normal 32-36 [facility] Comment on above: Performed By: #### L 500.4050, L100.0100 #### [facility] [address] [place], [address] MCV (RBC) [Entitic vol] 93.9 fL Normal 81-[address] [facility] Comment on above: Performed By: #### L 500.4050, L100.0100 #### [facility] [address] [place], [address] Monocytes/100 WBC (Bld) 9.6 % Normal 0-[address] [facility] Comment on above: Performed By: #### L 500.4050, L100.0100 #### [facility] [address] [place], [address] Neutrophils/100 WBC (Bld) 67.4 % Normal 47-70 [facility] Comment on above: Performed By: #### L 500.4050, L100.0100 #### [facility] [address] [place], [address] Nucleated RBC (Bld) [#/Vol] 0 10*3/uL Normal 0-5 [facility] Comment on above: Performed By: #### L 500.4050, L100.0100 #### [facility] [address] [place], [address] Platelet mean volume (Bld) [Entitic vol] 10.3 fL Normal 6.2-12.0 [facility] Comment on above: Performed By: #### L 500.4050, L100.0100 #### [facility] [address] [place], [address] Platelets (Bld) [#/Vol] 262 10*3/uL Normal 150-450 [facility] Comment on above: Performed By: #### L 500.4050, L100.0100 #### [facility] [address] [place], [address] RBC (Bld) [#/Vol] 3.79 10*6/uL Low 4.2-5.4 [facility] Comment on above: Performed By: #### L 500.4050, L100.0100 #### [facility] [address] [place], [address] RDW SD 40.4 fl Normal 35.1-43.9 [facility] Comment on above: Performed By: #### L 500.4050, L100.0100 #### [facility] [address] [place], [address] WBC (Bld) [#/Vol] 8.4 10*3/uL Normal 4.4-11.0 [facility] Comment on above: Performed By: #### L 500.4050, L100.0100 #### [facility] [address] [place], [address] Carbon dioxide, total [Moles /volume] in Central venous bloodOrdered By: Lorne Cherry on 08-28-2024 CO2 [Moles/Vol] 19.3 mmol/L Low 21.0-32.0 [facility] Chloride assayOrdered By: Ug o Cherry on 08-28-2024 Chloride [Moles/Vol] 104 mmol/L 98-108 [facility] Comprehensive Metabolic Prof ilon 08-28-2024 Albumin [Mass/Vol] 4.4 g/dL Normal 3.4-4.8 [facility] Comment on above: Performed By: #### L 500.4050, L100.0100 #### [facility] [address] [place], [address] Albumin/Globulin [Mass ratio] 1.7 {ratio} Normal 0.9-2.4 [facility] Comment on above: Performed By: #### L 500.4050, L100.0100 #### [facility] [address] [place], [address] ALK PHOS 80 U/L Normal 35-104 [facility] Comment on above: Performed By: #### L 500.4050, L100.0100 #### [facility] [address] [place], [address] ALT [Catalytic activity/Vol] 16 U/L Normal <=34 [facility] Comment on above: Performed By: #### L 500.4050, L100.0100 #### [facility] [address] [place], [address] AST [Catalytic activity/Vol] 29 U/L Normal <=31 [facility] Comment on above: Result Comment: Hemo lysis present, Results??could be affected. ?? Performed By: #### L 500.4050, L100.0100 #### [facility] [address] [place], [address] Bilirubin [Mass/Vol] 0.30 mg/dL Normal 0.00-1.30 [facility] Comment on above: Performed By: #### L 500.4050, L100.0100 #### [facility] [address] [place], [address] BUN/CRE 16.1 RATIO Normal 10-20 [facility] Comment on above: Performed By: #### L 500.4050, L100.0100 #### [facility] [address] [place], [address] Calcium [Mass/Vol] 11.4 mg/dL High 7.6-11.0 [facility] Comment on above: Performed By: #### L 500.4050, L100.0100 #### [facility] [address] [place], [address] Chloride [Moles/Vol] 104 mmol/L Normal 98-108 [facility] Comment on above: Performed By: #### L 500.4050, L100.0100 #### [facility] [address] [place], [address] CO2 [Moles/Vol] 19.3 mmol/L Low 21.0-32.0 [facility] Comment on above: Performed By: #### L 500.4050, L100.0100 #### [facility] [address] [place], [address] Creatinine [Mass/Vol] 1.08 mg/dL Normal 0.70-1.20 [facility] Comment on above: Performed By: #### L 500.4050, L100.0100 #### [facility] [address] [place], [address] ECRCL 40.44 ml/min Low 50-250 [facility] Comment on above: Performed By: #### L 500.4050, L100.0100 #### [facility] [address] [place], [address] GAP 14 Normal 5-15 [facility] Comment on above: Performed By: #### L 500.4050, L100.0100 #### [facility] [address] [place], [address] GFR/1.73 sq M.predicted among non-blacks MDRD (S/P/Bld) [Vol rate/Area] 53 mL/min/{1.73_m2} Low >60 [facility] Comment on above: Result Comment: mL/m in/1.73m2 CKD-EPI Creatinine Equation (2020) Performed By: #### L 500.4050, L100.0100 #### [facility] [address] [place], [address] Globulin (S) [Mass/Vol] 2.6 g/dL Normal 2.2-4.2 [facility] Comment on above: Performed By: #### L 500.4050, L100.0100 #### [facility] [address] [place], [address] Glucose [Mass/Vol] 89 mg/dL Normal 70-99 [facility] Comment on above: Performed By: #### L 500.4050, L100.0100 #### [facility] [address] [place], [address] Potassium [Moles/Vol] 4.3 mmol/L Normal 3.3-5.1 [facility] Comment on above: Result Comment: Hemo lysis present, Results??could be affected. ?? Performed By: #### L 500.4050, L100.0100 #### [facility] [address] [place], [address] Sodium [Moles/Vol] 138 mmol/L Normal 133-145 [facility] Comment on above: Performed By: #### L 500.4050, L100.0100 #### [facility] [address] [place], [address] T PROT 7.0 g/dL Normal 5.9-8.4 [facility] Comment on above: Performed By: #### L 500.4050, L100.0100 #### [facility] [address] [place], [address] Urea nitrogen [Mass/Vol] 17 mg/dL Normal 4-19 [facility] Comment on above: Performed By: #### L 500.4050, L100.0100 #### [facility] [address] [place], [address] Emergency Department Summary on 08-28-2024 [address] Department [address] [facility] Medical Records Department [address] [facility] [place] [address] Emergency Department Summary 08/28/24 MR#: [id number] Acct: [id number] Name: YAJAIRA UBNN Rep #: [id number] : 1945 78 From: Lorne Cherry MD [...] BID 08/18/21 Unknown Hist ory mg-copper 1 ar-goycyj-rweddm capsule (PreserVision AREDS-2) denosumab 60 mg/mL subcutaneous 60 mg subcut [id number] #1 mL Unknown Rx syringe (Prolia) cholecalciferol [...] H (more content not included)... Normal [facility] Eosinophil percentageOrdered By: Lorne Cherry on 08-28-2024 Eosinophils/100 WBC (Bld) 2.7 % 0-5 [facility] Erythrocyte distribution wid th ratioOrdered By: Lorne Cherry on 08-28-2024 Erythrocyte distribution width (RBC) [Ratio] 11.9 % 11.6-14.6 [facility] Erythrocyte distribution wid th standard deviationOrdered By: Lorne Cherry on 08-28-2024 Erythrocyte distribution width (RBC) [Ratio] 40.4 fl 35.1-43.9 [facility] Glomerular filtration rate ( GFR) estimation/1.73 sq m using serum, plasma, or whole bOrdered By: Lorne Cherry on 08-28-2024 GFR/1.73 sq M.predicted among non-blacks MDRD (S/P/Bld) [Vol rate/Area] 53 mL/min/{1.73_m2} Low >60 [facility] Comment on above: mL/min/1.73m2 CKD-EP I Creatinine Equation (2020) Hematocrit Auto (Bld) [Volum e fraction]Ordered By: Lorne Cherry on 08-28-2024 Hematocrit (Bld) [Volume fraction] 35.6 % Low 37-47 [facility] Hemoglobin measurementOrdere d By: Lorne Cherry on 08-28-2024 Hemoglobin (Bld) [Mass/Vol] 12.3 g/dL 12.0-15.0 [facility] Immature granulocytes/100 WB C Auto (Bld)Ordered By: Lorne Cherry on 08-28-2024 Immature granulocytes/100 WBC (Bld) 0.500 % 0.0-0.9 [facility] Comment on above: IG% - Immature Granu locytes (promyelocytes, myelocytes and metamyelocytes) > 1% indicates that a LEFT SHIFT is Present. Ketones Test strip Ql (U)Ord ered By: Lorne Cherry on 08-28-2024 Ketones Ql (U) 5 mg/dl High Negative [facility] - Chemistry and C hemistry - challengeOrdered By: Lornecade Cherry on 08-28-2024 AST [Catalytic activity/Vol] 29 U/L <32 [facility] Comment on above: Hemolysis present, R esults could be affected. MCV (mean corpuscular volume ) determinationOrdered By: Lorne Cherry on 08-28-2024 MCV (RBC) [Entitic vol] 93.9 fL 81-[address] [facility] Mean corpuscular hemoglobin (MCH) determinationOrdered By: Lorne Cherry on 08-28-2024 MCH (RBC) [Entitic mass] 32.5 pg High 27.0-32.0 [facility] Mean corpuscular hemoglobin concentration (MCHC) determinationOrdered By: Lorne Cherry on 08-28-2024 MCHC (RBC) [Mass/Vol] 34.6 g/dL 32-36 [facility] Mean platelet volume determi nationOrdered By: Lorne Cherry on 08-28-2024 Platelet mean volume (Bld) [Entitic vol] 10.3 fL 6.2-12.0 [facility] Microscopic analysis of urin e for red blood cells (RBC)Ordered By: Lorne Cherry on 08-28-2024 Microscopic analysis of urine for red blood cells (RBC) 0-5 SEEN /hpf 0-5 [facility] Monocyte percentageOrdered B y: Lorne Cherry on 08-28-2024 Monocytes/100 WBC (Bld) 9.6 % 0-[address] [facility] Mucus LM Ql (Urine sed)Order ed By: Lorne Cherry on 08-28-2024 Mucus Ql (Urine sed) 0 SEEN /hpf [facility] Neutrophil percentageOrdered By: Lornecade Cherry on 08-28-2024 Neutrophils/100 WBC (Bld) 67.4 % 47-70 [facility] Nitrite Test strip Ql (U)Ord ered By: Lorne Cherry on 08-28-2024 Nitrite Ql (U) Negative Negative [facility] Nucleated red blood cell per centageOrdered By: Lorne Cherry on 08-28-2024 Nucleated RBC/100 WBC (Bld) [Ratio] 0 % 0-5 [facility] Platelet countOrdered By: cade Cherry on 08-28-2024 Platelets (Bld) [#/Vol] 262 10*3/uL 150-450 [facility] Potassium measurement (mass/ volume)Ordered By: Lorne Cherry on 08-28-2024 Potassium (Unsp spec) [Mass/Vol] 4.3 mmol/L 3.3-5.1 [facility] Comment on above: Hemolysis present, R esults could be affected. Protein Test strip Ql (U)Ord ered By: Lorne Cherry on 08-28-2024 Protein Ql (U) Negative Negative [facility] RBC Auto (Bld) [#/Vol]Ordere d By: Lorne Cherry on 08-28-2024 RBC (Bld) [#/Vol] 3.79 10*6/uL Low 4.2-5.4 [facility] Serum creatinine measurement (mass/volume)Ordered By: Lorne Cherry on 08-28-2024 Creatinine [Mass/Vol] 1.08 mg/dL 0.70-1.20 [facility] Serum globulin measurementOr dered By: Lorne Cherry on 08-28-2024 Globulin (S) [Mass/Vol] 2.6 g/dL 2.2-4.[address] [facility] Serum glucose measurement (m ass/volume)Ordered By: Lorne Cherry on 08-28-2024 Glucose [Mass/Vol] 89 mg/dL 70-99 [facility] Serum or plasma alanine maciel otransferase (ALT) measurementOrdered By: Lornecade Cherry on 08-28-2024 ALT [Catalytic activity/Vol] 16 U/L <35 [facility] Serum or plasma albumin rodriguez urement (mass/volume)Ordered By: Lornecade Cherry on 08-28-2024 Albumin [Mass/Vol] 4.4 g/dL 3.4-4.8 [facility] Serum or plasma albumin/glob ulin mass ratioOrdered By: Lornecade Cherry on 08-28-2024 Albumin/Globulin [Mass ratio] 1.7 {ratio} 0.9-2.4 [facility] Serum or plasma alkaline ana sphatase measurementOrdered By: Lornecade Cherry on 08-28-2024 ALP [Catalytic activity/Vol] 80 U/L 35-104 [facility] Serum or plasma calcium rodriguez urement (mass/volume)Ordered By: Lorne Cherry on 08-28-2024 Calcium [Mass/Vol] 11.4 mg/dL High 7.6-11.0 [facility] Serum or plasma urea nitroge n measurement (mass/volume)Ordered By: Lorne Cherry on 08-28-2024 Urea nitrogen [Mass/Vol] 17 mg/dL 4-19 [facility] Sodium levelOrdered By: Lornecade Cherry on 08-28-2024 Sodium [Moles/Vol] 138 mmol/L 133-145 [facility] Squamous epithelial cells de tection in urine sediment by light microscopyOrdered By: Lorne Cherry on 08-28-2024 Epithelial cells.squamous LM Ql (Urine sed) 0-5 SEEN /hpf 5-10 [facility] Total proteinOrdered By: Lorne Cherry on 08-28-2024 Protein [Mass/Vol] 7.0 g/dL 5.9-8.4 [facility] Urinalysis, Completeon 08-28 EPI,SQUAMOUS 0-5 SEEN Normal 5-10 [facility] Comment on above: Order Comment: CLEAN CATCH Performed By: #### L 400.0001 #### [facility] [address] [place], [address] RBC 0-5 SEEN Normal 0-5 [facility] Comment on above: Order Comment: CLEAN CATCH Performed By: #### L 400.0001 #### [facility] [address] [place], [address] WBC 0-5 SEEN Normal 0-5 [facility] Comment on above: Order Comment: CLEAN CATCH Performed By: #### L 400.0001 #### [facility] [address] [place], [address] BACTERIA 0 SEEN Normal None Seen [facility] Comment on above: Order Comment: CLEAN CATCH Performed By: #### L 400.0001 #### [facility] [address] [place], [address] Mucus Ql (Urine sed) 0 SEEN Normal [facility] Comment on above: Order Comment: CLEAN CATCH Performed By: #### L 400.0001 #### [facility] [address] [place], [address] Urine clarityOrdered By: Lorne Cherry on 08-28-2024 Clarity (U) Clear Clear [facility] Urine color determinationOrd ered By: Lorne Cherry on 08-28-2024 Color (U) Yellow Yellow [facility] Urine glucose detectionOrder ed By: Lorne Cherry on 08-28-2024 Glucose Ql (U) Normal mg/dl Normal [facility] Urine leukocyte esterase det ection by dipstickOrdered By: Lorne Cherry on 08-28-2024 Leukocyte esterase Test strip Ql (U) 25 /ul High Negative [facility] Urine pHOrdered By: Lorne quevedo on 08-28-2024 pH (U) 7.0 [pH] 5.0 - 8.0 [facility] Urine sediment bacteria coun t by microscopy (number/high power field)Ordered By: Lorne Cherry on 08-28-2024 Bacteria LM.HPF (Urine sed) [#/Area] 0 /[HPF] None Seen [facility] Urine specific gravity measu rementOrdered By: Lorne Cherry on 08-28-2024 Specific gravity (U) [Rel density] 1.010 1.002-1.030 [facility] Urine urobilinogen measureme ntOrdered By: Lorne Cherry on 08-28-2024 Urobilinogen Ql (U) Normal mg/dl Normal [facility] White blood cell (WBC) count Ordered By: Lornecade Cherry on 08-28-2024 WBC (Bld) [#/Vol] 8.4 10*3/uL 4.4-11.0 [facility] White blood cell countOrdere d By: Lorne Cherry on 08-28-2024 White blood cell count 0-5 SEEN /hpf 0-5 [facility] Anion gap in Serum or Plasma Ordered By: Guicho Quezada on 08-27-2024 Anion gap [Moles/Vol] 13 mmol/L 5-15 [facility] BUN/creatinine ratioOrdered By: Guicho Quezada on 08-27-2024 Urea nitrogen/Creatinine [Mass ratio] 15.1 mg/mg 10-20 [facility] Bilirubin, totalOrdered By: Guicho Quezada on 08-27-2024 Bilirubin [Mass/Vol] 0.23 mg/dL 0.00-1.30 [facility] Carbon dioxide, total [Moles /volume] in Central venous bloodOrdered By: Guicho Quezada on 08-27-2024 CO2 [Moles/Vol] 23.3 mmol/L 21.0-32.0 [facility] Chloride assayOrdered By: Demar Quezada on 08-27-2024 Chloride [Moles/Vol] 102 mmol/L 98-108 [facility] Comprehensive Metabolic Prof ilon 08-27-2024 Albumin [Mass/Vol] 4.3 g/dL Normal 3.4-4.8 [facility] Comment on above: Order Comment: KISHOR Mckeon ADD TO LABS DONE ON 08-26-24 STORED: MG5 5 F Performed By: #### L 506.1001, L500.4050 #### [facility] [address] [place], [address] Albumin/Globulin [Mass ratio] 1.7 {ratio} Normal 0.9-2.4 [facility] Comment on above: Order Comment: PLEAS E ADD TO LABS DONE ON 08-26-24 STORED: MG5 5 F Performed By: #### L 506.1001, L500.4050 #### [facility] [address] [place], [address] ALK PHOS 76 U/L Normal 35-104 [facility] Comment on above: Order Comment: PLEAS E ADD TO LABS DONE ON 08-26-24 STORED: MG5 5 F Performed By: #### L 506.1001, L500.4050 #### [facility] [address] [place], [address] ALT [Catalytic activity/Vol] 15 U/L Normal <=34 [facility] Comment on above: Order Comment: PLEAS E ADD TO LABS DONE ON 08-26-24 STORED: MG5 5 F Performed By: #### L 506.1001, L500.4050 #### [facility] [address] [place], [address] AST [Catalytic activity/Vol] 24 U/L Normal <=31 [facility] Comment on above: Order Comment: PLEAS E ADD TO LABS DONE ON 08-26-24 STORED: MG5 5 F Performed By: #### L 506.1001, L500.4050 #### [facility] [address] [place], [address] Bilirubin [Mass/Vol] 0.23 mg/dL Normal 0.00-1.30 [facility] Comment on above: Order Comment: PLEAS E ADD TO LABS DONE ON 08-26-24 STORED: MG5 5 F Performed By: #### L 506.1001, L500.4050 #### [facility] [address] [place], [address] BUN/CRE 15.1 RATIO Normal 10-20 [facility] Comment on above: Order Comment: PLEAS E ADD TO LABS DONE ON 08-26-24 STORED: MG5 5 F Performed By: #### L 506.1001, L500.4050 #### [facility] [address] [place], [address] Calcium [Mass/Vol] 13.7 mg/dL Invalid Interpretation Code 7.6-11.0 [facility] Comment on above: Order Comment: PLEAS E ADD TO LABS DONE ON 08-26-24 STORED: MG5 5 F Result Comment: Crit ical Result(s) Called SUNNY WELLS at: 1643 by: AMBERLY??Results read back by same. Performed By: #### L 506.1001, L500.4050 #### [facility] [address] [place], [address] Chloride [Moles/Vol] 102 mmol/L Normal 98-108 [facility] Comment on above: Order Comment: PLEAS E ADD TO LABS DONE ON 08-26-24 STORED: MG5 5 F Performed By: #### L 506.1001, L500.4050 #### [facility] [address] [place], [address] CO2 [Moles/Vol] 23.3 mmol/L Normal 21.0-32.0 [facility] Comment on above: Order Comment: PLEAS E ADD TO LABS DONE ON 08-26-24 STORED: MG5 5 F Performed By: #### L 506.1001, L500.4050 #### [facility] [address] [place], [address] Creatinine [Mass/Vol] 1.19 mg/dL Normal 0.70-1.20 [facility] Comment on above: Order Comment: PLEAS E ADD TO LABS DONE ON 08-26-24 STORED: MG5 5 F Performed By: #### L 506.1001, L500.4050 #### [facility] [address] [place], [address] GAP 13 Normal 5-15 [facility] Comment on above: Order Comment: PLEAS E ADD TO LABS DONE ON 08-26-24 STORED: MG5 5 F Performed By: #### L 506.1001, L500.4050 #### [facility] [address] [place], [address] GFR/1.73 sq M.predicted among non-blacks MDRD (S/P/Bld) [Vol rate/Area] 47 mL/min/{1.73_m2} Low >60 [facility] Comment on above: Order Comment: PLEAS E ADD TO LABS DONE ON 08-26-24 STORED: MG5 5 F Result Comment: mL/m in/1.73m2 CKD-EPI Creatinine Equation (2020) Performed By: #### L 506.1001, L500.4050 #### [facility] [address] [place], [address] Globulin (S) [Mass/Vol] 2.5 g/dL Normal 2.2-4.2 [facility] Comment on above: Order Comment: PLEAS E ADD TO LABS DONE ON 08-26-24 STORED: MG5 5 F Performed By: #### L 506.1001, L500.4050 #### [facility] [address] [place], [address] Glucose [Mass/Vol] 107 mg/dL High 70-99 [facility] Comment on above: Order Comment: PLEAS E ADD TO LABS DONE ON 08-26-24 STORED: MG5 5 F Performed By: #### L 506.1001, L500.4050 #### [facility] [address] [place], [address] Potassium [Moles/Vol] 4.5 mmol/L Normal 3.3-5.1 [facility] Comment on above: Order Comment: PLEAS E ADD TO LABS DONE ON 08-26-24 STORED: MG5 5 F Performed By: #### L 506.1001, L500.4050 #### [facility] [address] [place], [address] Sodium [Moles/Vol] 138 mmol/L Normal 133-145 [facility] Comment on above: Order Comment: PLEAS E ADD TO LABS DONE ON 08-26-24 STORED: MG5 5 F Performed By: #### L 506.1001, L500.4050 #### [facility] [address] [place], [address] T PROT 6.8 g/dL Normal 5.9-8.4 [facility] Comment on above: Order Comment: PLEAS E ADD TO LABS DONE ON 08-26-24 STORED: MG5 5 F Performed By: #### L 506.1001, L500.4050 #### [facility] [address] [place], [address] Urea nitrogen [Mass/Vol] 18 mg/dL Normal 4-19 [facility] Comment on above: Order Comment: PLEAS E ADD TO LABS DONE ON 08-26-24 STORED: MG5 5 F Performed By: #### L 506.1001, L500.4050 #### [facility] [address] [place], [address] Glomerular filtration rate ( GFR) estimation/1.73 sq m using serum, plasma, or whole bOrdered By: Guicho Quezada on 08-27-2024 GFR/1.73 sq M.predicted among non-blacks MDRD (S/P/Bld) [Vol rate/Area] 47 mL/min/{1.73_m2} Low >60 [facility] Comment on above: mL/min/1.73m2 CKD-EP I Creatinine Equation (2020) Laboratory - Chemistry and C hemistry - challengeOrdered By: Guicho Quezada on 08-27-2024 AST [Catalytic activity/Vol] 24 U/L <32 [facility] Potassium measurement (mass/ volume)Ordered By: Guicho Quezada on 08-27-2024 Potassium (Unsp spec) [Mass/Vol] 4.5 mmol/L 3.3-5.1 [facility] Serum creatinine measurement (mass/volume)Ordered By: Guicho Quezada on 08-27-2024 Creatinine [Mass/Vol] 1.19 mg/dL 0.70-1.20 [facility] Serum globulin measurementOr dered By: Guicho Quezada on 08-27-2024 Globulin (S) [Mass/Vol] 2.5 g/dL 2.2-4.2 [facility] Serum glucose measurement (m ass/volume)Ordered By: Guicho Quezada on 08-27-2024 Glucose [Mass/Vol] 107 mg/dL High 70-99 [facility] Serum or plasma alanine maciel otransferase (ALT) measurementOrdered By: Guicho Quezada on 08-27-2024 ALT [Catalytic activity/Vol] 15 U/L <35 [facility] Serum or plasma albumin rodriguez urement (mass/volume)Ordered By: Guicho Quezada on 08-27-2024 Albumin [Mass/Vol] 4.3 g/dL 3.4-4.8 [facility] Serum or plasma albumin/glob ulin mass ratioOrdered By: Guicho Quezada on 08-27-2024 Albumin/Globulin [Mass ratio] 1.7 {ratio} 0.9-2.4 [facility] Serum or plasma alkaline ana sphatase measurementOrdered By: Guicho Quezada on 08-27-2024 ALP [Catalytic activity/Vol] 76 U/L 35-104 [facility] Serum or plasma calcium rodriguez urement (mass/volume)Ordered By: Guicho Quezada on 08-27-2024 Calcium [Mass/Vol] 13.7 mg/dL Critically high 7.6-11.0 [facility] Comment on above: Critical Result(s) C nathen CORREA RN at: 1643 by: AMBERLY Results read back by same. Serum or plasma urea nitroge n measurement (mass/volume)Ordered By: Guicho Quezada on 08-27-2024 Urea nitrogen [Mass/Vol] 18 mg/dL 4-19 [facility] Sodium levelOrdered By: Guicho Quezada on 07-01-2025 Sodium [Moles/Vol] 138 mmol/L 133-145 [facility] Total proteinOrdered By: Levon Quezada on 08-27-2024 Protein [Mass/Vol] 6.8 g/dL 5.9-8.4 [facility] Vitamin D,25 Hydroxyon 08-27 Vitamin D 25-OH 64.0 ng/mL Normal 30-100 [facility] Comment on above: Order Comment: KISHOR Mckeon ADD TO LABS DONE ON 08-26-24 STORED: MG5 5 F Result Comment: Heidi min D Status Deficiency: <20 ng/mL (50nmol/L) Insufficiency: 20-30 ng/mL (50-75 nmol/L) Sufficiency: 30-100 ng/mL (75-250 nmol/L) Toxicity: >100 ng/mL (>250 nmol/L) Performed By: #### L 506.1001, L500.4050 #### [facility] [address] [place], [place], [address] Endocrinology Visit Reporton 08-26-2024 Endocrinology Visit Report [facility] 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 ) [facility] Medical History Vitamin D deficiency Abnormal mammogram [...] In (more content not included)... Normal [facility] Ferritinon 08-26-2024 Ferritin [Mass/Vol] 208 ng/mL Normal 22-378 [facility] Comment on above: Performed By: #### L 503.0106, L503.6550 #### [facility] [address] [place], [address] Serum or plasma ferritin ezra surement (mass/volume)Ordered By: Guicho Quezada on 08-26-2024 Ferritin [Mass/Vol] 208 ng/mL 22-378 [facility] Vitamin B12on 08-26-2024 Cobalamin (Vitamin B12) [Mass/Vol] 1101 pg/mL High 180-914 [facility] Comment on above: Performed By: #### L 503.0106, L503.6550 #### [facility] [address] [place], [address] Vitamin B12 ser/plasOrdered By: Guicho Quezada on 08-26-2024 Cobalamin (Vitamin B12) [Mass/Vol] 1101 pg/mL High 180-914 [facility] Office Visit Reporton 2023 Office Visit Report [facility] [address] [place] [address] OFFICE VISIT Date of Service: 02/23/24 MR#: [id number] Acct: [id number] Patient: YAJAIRA BUNN Rep #: [id number] : 1945 Provider: Fidel Frias Age/Sex: 78/F Location: [facility] Status: Signed Intake Vital Signs 10/20/23 13:02 [...] Procedure performed by: Sunny Yeung Lot number: [id number] 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: [employer] date: 06/26/26 Dose of injection: 1 mL Site of injection: Sub-Q Medication Given: Yes Is this a patient provided medication?: No Office Meds Prolia 60 mg/mL subcutaneous syringe Performing Provider: Guicho Quezada MD Performing Location: [facility] Administered by: Sunny Yeung RN on 02/23/24 11:33 Dose Route Admin Location Dispensed Lot Number Expiration Date NDC Man ufacturer 60 mg subcut Left Arm 1 mL [id number] 06/26/26 85447-486-01 [employer] Assessment and Plan Assessment and Plan [...] Signature: Date (if applicable) CC: Normal [facility] Absolute lymphocyte countOrd ered By: Juaquin Kay on 10-11-2022 Lymphocytes Auto (Unsp spec) [#/Vol] 1.28 10*3/uL 0.83-4.51 [facility] Basophil percentageOrdered B y: Juaquin Kay on 10-11-2022 Basophils/100 WBC (Bld) 0.3 % 0-1 [facility] Chloride [Moles/Vol] 108 mmol/L 98-107 [facility] Eosinophils/100 WBC (Bld) 0.0 % 0-5 [facility] Glucose [Mass/Vol] 104 mg/dL 74-106 [facility] Comment on above: Fasting Glucose resu lt from 100 to 125 mg/dL suggests IMPAIRED HOMEOSTASIS per A.D.A. criteria. Neutrophils (Bld) [#/Vol] 7.5 10*3/uL 2.0-7.7 [facility] Neutrophils/100 WBC (Bld) 76.4 % 47-70 [facility] Potassium [Moles/Vol] 4.5 mmol/L 3.5-5.1 [facility] Sodium [Moles/Vol] 135 mmol/L 136-145 [facility] WBC (Bld) [#/Vol] 9.9 10*3/uL 4.4-11.0 [facility] Blood erythrocytes count (nu mber/volume)Ordered By: Juaquin Kay on 10-11-2022 RBC (Bld) [#/Vol] 3.88 10*6/uL 4.2-5.4 [facility] Blood hemoglobin measurement (mass/volume)Ordered By: Juaquin Kay on 10-11-2022 Hemoglobin (Bld) [Mass/Vol] 12.2 g/dL 12.0-15.0 [facility] Blood lymphocytes/100 leukoc ytesOrdered By: Juaquin Kay on 10-11-2022 Lymphocytes/100 WBC (Bld) 13.0 % 19-41 [facility] Blood monocytes/100 leukocyt esOrdered By: Juaquin Kay on 10-11-2022 Monocytes/100 WBC (Bld) 9.4 % 0-[address] [facility] Blood platelet mean volumeOr dered By: Juaquin Kay on 10-11-2022 Platelet mean volume (Bld) [Entitic vol] 9.9 fL 6.2-12.0 [facility] Determination of erythrocyte mean corpuscular volume (MCV)Ordered By: Juaquin Kay on 10-11-2022 MCV (RBC) [Entitic vol] 94.8 fL 81-[address] [facility] Hematocrit Auto (Bld) [Volum e fraction]Ordered By: Juaquin Kay on 10-11-2022 Hematocrit (Bld) [Volume fraction] 36.8 % 37-47 [facility] Laboratory - Chemistry and C hemistry - challengeOrdered By: Juaquin Kay on 10-11-2022 CO2 [Moles/Vol] 22.0 mmol/L 21.0-32.0 [facility] Urea nitrogen/Creatinine [Mass ratio] 17.9 mg/mg 10-20 [facility] Laboratory - Hematology and Cell countsOrdered By: Juaquin Kay on 10-11-2022 Erythrocyte distribution width (RBC) [Entitic vol] 42.8 fL 35.1-43.9 [facility] Erythrocyte distribution width (RBC) [Ratio] 12.3 % 11.6-14.6 [facility] Immature granulocytes/100 WBC (Bld) 0.900 % 0.0-0.9 [facility] Comment on above: IG% - Immature Granu locytes (promyelocytes, myelocytes and metamyelocytes) > 1% indicates that a LEFT SHIFT is Present. MCH (RBC) [Entitic mass] 31.4 pg 27.0-32.0 [facility] Nucleated RBC/100 WBC (Bld) [Ratio] 0 % 0-5 [facility] MCHC Auto (RBC) [Mass/Vol]Or dered By: Juaquin Kay on 10-11-2022 MCHC (RBC) [Mass/Vol] 33.2 g/dL 32-36 [facility] No Panel InformationOrdered By: Juaquin Kay on 10-11-2022 Estimated GFR (MDRD) Amer 58 mL/min >60 [facility] Comment on above: GFR Calc Estimated GFR (MDRD) Non-Af Amer 48 mL/min >60 [facility] Comment on above: Non- GFR Calc Platelets bldOrdered By: Rory Kay on 10-11-2022 Platelets (Bld) [#/Vol] 300 10*3/uL 150-450 [facility] Serum or plasma calcium rodriguez urement (mass/volume)Ordered By: Juaquin Kay on 10-11-2022 Calcium [Mass/Vol] 11.2 mg/dL 8.5-10.1 [facility] Serum or plasma creatinine m easurement (mass/volume)Ordered By: Juaquin Kay on 10-11-2022 Creatinine [Mass/Vol] 1.17 mg/dL 0.55-1.02 [facility] Comment on above: The validity of the calculated GFR & GFRAA in patients over 70 years has not been determined. Clinical correlation is essential. Serum or plasma urea nitroge n measurement (mass/volume)Ordered By: Juaquin Kay on 10-11-2022 Urea nitrogen [Mass/Vol] 21 mg/dL 7-18 [facility] Thin prep Papanicolaou smear with manual screeningOrdered By: Juaquin Kay on 10-11-2022 Thin prep Papanicolaou smear with manual screening 5 5-15 [facility] Absolute lymphocyte countOrd ered By: Dr. Quezada on 03-31-2022 Lymphocytes Auto (Unsp spec) [#/Vol] 1.10 10*3/uL 0.83-4.51 [facility] Basophil percentageOrdered B y: Dr. Quezada on 03-31-2022 Basophils/100 WBC (Bld) 1.1 % 0-[address] [facility] Bilirubin [Mass/Vol] 0.40 mg/dL 0.20-1.00 [facility] Comment on above: For patients on eltr ombopag therapy, use of Dimension Goodman TBIL is not recommended. Chloride [Moles/Vol] 107 mmol/L 98-107 [facility] Cholesterol [Mass/Vol] 205 mg/dL <200 [facility] Comment on above: <200 mg/dL Desirable 200-240 mg/dL Borderline >240 mg/dL High Risk Eosinophils/100 WBC (Bld) 2.1 % 0-5 [facility] Glucose [Mass/Vol] 99 mg/dL 74-106 [facility] Neutrophils (Bld) [#/Vol] 3.5 10*3/uL 2.0-7.7 [facility] Neutrophils/100 WBC (Bld) 66.5 % 47-70 [facility] Potassium [Moles/Vol] 4.6 mmol/L 3.5-5.1 [facility] Protein [Mass/Vol] 7.5 g/dL 6.4-8.2 [facility] Sodium [Moles/Vol] 138 mmol/L 136-145 [facility] Triglyceride [Mass/Vol] 90 mg/dL <[address] [facility] Comment on above: The drugs N-Acetylcy steine and Metamizole may falsely depress this assay.Serum Triglycerides Reference Interval Normal <150 mg/dL Borderline high 150 - 199 mg/dL High 200 - 499 mg/dL Very High > or = 500 mg/dL WBC (Bld) [#/Vol] 5.3 10*3/uL 4.4-11.0 [facility] Blood erythrocytes count (nu mber/volume)Ordered By: Dr. Quezada on 03-31-2022 RBC (Bld) [#/Vol] 3.79 10*6/uL 4.2-5.4 [facility] Blood hemoglobin measurement (mass/volume)Ordered By: Dr. Quezada on 03-31-2022 Hemoglobin (Bld) [Mass/Vol] 11.9 g/dL 12.0-15.0 [facility] Blood lymphocytes/100 leukoc ytesOrdered By: Dr. Quezada on 03-31-2022 Lymphocytes/100 WBC (Bld) 20.7 % 19-41 [facility] Blood monocytes/100 leukocyt esOrdered By: Dr. Quezada on 03-31-2022 Monocytes/100 WBC (Bld) 9.4 % 0-[address] [facility] Blood platelet mean volumeOr dered By: Dr. Quezada on 03-31-2022 Platelet mean volume (Bld) [Entitic vol] 9.6 fL 6.2-12.0 [facility] Determination of erythrocyte mean corpuscular volume (MCV)Ordered By: Dr. Quezada on 03-31-2022 MCV (RBC) [Entitic vol] 95.3 fL 81-[address] [facility] Hematocrit Auto (Bld) [Volum e fraction]Ordered By: Dr. Quezada on 03-31-2022 Hematocrit (Bld) [Volume fraction] 36.1 % 37-47 [facility] Laboratory - Chemistry and C hemistry - challengeOrdered By: Dr. Quezada on 03-31-2022 ALP [Catalytic activity/Vol] 60 U/L 45-117 [facility] ALT [Catalytic activity/Vol] 27 U/L 13-56 [facility] CO2 [Moles/Vol] 27.0 mmol/L 21.0-32.0 [facility] Globulin (S) [Mass/Vol] 3.8 g/dL 2.2-4.[address] [facility] Urea nitrogen/Creatinine [Mass ratio] 17.4 mg/mg 10-20 [facility] Laboratory - Hematology and Cell countsOrdered By: Dr. Quezada on 03-31-2022 Erythrocyte distribution width (RBC) [Entitic vol] 42.4 fL 35.1-43.9 [facility] Erythrocyte distribution width (RBC) [Ratio] 12.3 % 11.6-14.6 [facility] Immature granulocytes/100 WBC (Bld) 0.200 % 0.0-0.9 [facility] Comment on above: IG% - Immature Granu locytes (promyelocytes, myelocytes and metamyelocytes) > 1% indicates that a LEFT SHIFT is Present. MCH (RBC) [Entitic mass] 31.4 pg 27.0-32.0 [facility] Nucleated RBC/100 WBC (Bld) [Ratio] 0 % 0-5 [facility] MCHC Auto (RBC) [Mass/Vol]Or dered By: Dr. Quezada on 03-31-2022 MCHC (RBC) [Mass/Vol] 33.0 g/dL 32-36 [facility] No Panel InformationOrdered By: Dr. Quezada on 03-31-2022 Estimated GFR (MDRD) Amer 63 mL/min >60 [facility] Comment on above: GFR Calc Estimated GFR (MDRD) Non-Af Amer 52 mL/min >60 [facility] Comment on above: Non- GFR Calc Parathyroid Hormone (Intact) 202.2 pg/mL 18.4-80.1 [facility] Vitamin D 25-Hydroxy 45.6 ng/mL [facility] Comment on above: Vitamin D 25(OH) Sta tus Range Deficiency <20 ng/mL (50nmol/L) Insufficiency 20 - 30 ng/mL (50 - 75 nmol/L) Sufficiency 30 - 100 ng/mL (75 - 250 nmol/L) Toxicity >100 ng/mL (>250 nmol/L) Platelets bldOrdered By: Dr. Quezada on 03-31-2022 Platelets (Bld) [#/Vol] 259 10*3/uL 150-450 [facility] Serum or plasma albumin rodriguez urement (mass/volume)Ordered By: Dr. Quezada on 03-31-2022 Albumin [Mass/Vol] 3.7 g/dL 3.2-5.0 [facility] Serum or plasma albumin/glob ulin mass ratioOrdered By: Dr. Quezada on 03-31-2022 Albumin/Globulin [Mass ratio] 1.0 {ratio} 0.9-2.4 [facility] Serum or plasma calcium rodriguez urement (mass/volume)Ordered By: Dr. Quezada on 03-31-2022 Calcium [Mass/Vol] 11.1 mg/dL 8.5-10.1 [facility] Serum or plasma cholesterol in HDL measurement (mass/volume)Ordered By: Dr. Quezada on 03-31-2022 Cholesterol in HDL [Mass/Vol] 74 mg/dL >40 [facility] Comment on above: The drugs N-Acetylcy steine and Metamizole may falsely depress this assay. Reference Range HDL <40 mg/dL Low HDL Cholesterol HDL >or= 60 mg/dL High HDL Cholesterol Serum or plasma cholesterol in VLDL measurement (mass/volume)Ordered By: Dr. Quezada on 03-31-2022 Cholesterol in VLDL [Mass/Vol] 18 mg/dL 5-40 [facility] Serum or plasma creatinine m easurement (mass/volume)Ordered By: Dr. Quezada on 03-31-2022 Creatinine [Mass/Vol] 1.09 mg/dL 0.55-1.02 [facility] Comment on above: The validity of the calculated GFR & GFRAA in patients over 70 years has not been determined. Clinical correlation is essential. Serum or plasma low density lipoprotein (LDL) cholesterol measurement (mass/volume)Ordered By: Dr. Quezada on 03-31-2022 Cholesterol in LDL [Mass/Vol] 113 mg/dL 0-130 [facility] Serum or plasma urea nitroge n measurement (mass/volume)Ordered By: Dr. Quezada on 03-31-2022 Urea nitrogen [Mass/Vol] 19 mg/dL 7-18 [facility] Thin prep Papanicolaou smear with manual screeningOrdered By: Dr. Quezada on 03-31-2022 Thin prep Papanicolaou smear with manual screening 18 U/L 15-37 [facility] Thin prep Papanicolaou smear with manual screening 4 5-15 [facility] Absolute lymphocyte counton 09-24-2021 Lymphocytes Auto (Unsp spec) [#/Vol] 1.08 10*3/uL 0.83-4.51 [facility] Work Phone: Basophil percentageon 2021 Basophils/100 WBC (Bld) 0.9 % 0-[address] [facility] Work Phone: Bilirubin [Mass/Vol] 0.30 mg/dL 0.20-1.00 [facility] Work Phone: Comment on above: For patients on eltr ombopag therapy, use of Dimension Goodman TBIL is not recommended. Chloride [Moles/Vol] 108 mmol/L 98-107 [facility] Work Phone: Cholesterol [Mass/Vol] 175 mg/dL <200 [facility] [place] [place] Work Phone: Comment on above: <200 mg/dL Desirable 200-240 mg/dL Borderline >240 mg/dL High Risk Eosinophils/100 WBC (Bld) 2.9 % 0-5 [facility] Work Phone: Glucose [Mass/Vol] 99 mg/dL 74-106 [facility] Work Phone: Neutrophils (Bld) [#/Vol] 4.4 10*3/uL 2.0-7.7 [facility] Work Phone: Neutrophils/100 WBC (Bld) 67.7 % 47-70 [facility] Work Phone: Potassium [Moles/Vol] 4.5 mmol/L 3.5-5.1 [facility] Work [facility]: Protein [Mass/Vol] 7.1 g/dL 6.4-8.2 [facility] Work Phone: Sodium [Moles/Vol] 138 mmol/L 136-145 [facility] Work Phone: Triglyceride [Mass/Vol] 145 mg/dL <[address] [facility] Work Phone: Comment on above: The drugs N-Acetylcy steine and Metamizole may falsely depress this assay.Serum Triglycerides Reference Interval Normal <150 mg/dL Borderline high 150 - 199 mg/dL High 200 - 499 mg/dL Very High > or = 500 mg/dL WBC (Bld) [#/Vol] 6.5 10*3/uL 4.4-11.0 [facility] Work Phone: Blood erythrocytes count (nu mber/volume)on 09-24-2021 RBC (Bld) [#/Vol] 3.64 10*6/uL 4.2-5.4 [facility] Work Phone: Blood hemoglobin measurement (mass/volume)on 09-24-2021 Hemoglobin (Bld) [Mass/Vol] 11.3 g/dL 12.0-15.0 [facility] Work Phone: Blood lymphocytes/100 leukoc yteson 09-24-2021 Lymphocytes/100 WBC (Bld) 16.7 % 19-41 [facility] Work Phone: Blood monocytes/100 leukocyt eson 09-24-2021 Monocytes/100 WBC (Bld) 11.6 % 0-[address] [facility] Work Phone: Blood platelet mean volumeon 09-24-2021 Platelet mean volume (Bld) [Entitic vol] 9.9 fL 6.2-12.0 [facility] Work Phone: Determination of erythrocyte mean corpuscular volume (MCV)on 09-24-2021 MCV (RBC) [Entitic vol] 94.2 fL 81-[address] [facility] Work Phone: Hematocrit Auto (Bld) [Volum e fraction]on 09-24-2021 Hematocrit (Bld) [Volume fraction] 34.3 % 37-47 [facility] Work Phone: Laboratory - Chemistry and C hemistry - challengeon 09-24-2021 ALP [Catalytic activity/Vol] 72 U/L 45-117 [facility] Work Phone: ALT [Catalytic activity/Vol] 26 U/L 13-56 [facility] Work Phone: CO2 [Moles/Vol] 25.0 mmol/L 21.0-32.0 [facility] Work Phone: Globulin (S) [Mass/Vol] 3.6 g/dL 2.2-4.[address] [facility] Work Phone: Urea nitrogen/Creatinine [Mass ratio] 17.1 mg/mg 10-20 [facility] Work Phone: Laboratory - Hematology and Cell countson 09-24-2021 Erythrocyte distribution width (RBC) [Entitic vol] 42.4 fL 35.1-43.9 [facility] Work Phone: Erythrocyte distribution width (RBC) [Ratio] 12.3 % 11.6-14.6 [facility] Work Phone: [phone] Immature granulocytes/100 WBC (Bld) 0.200 % 0.0-0.9 [facility] Work Phone: Comment on above: IG% - Immature Granu locytes (promyelocytes, myelocytes and metamyelocytes) > 1% indicates that a LEFT SHIFT is Present. MCH (RBC) [Entitic mass] 31.0 pg 27.0-32.0 [facility] Work Phone: Nucleated RBC/100 WBC (Bld) [Ratio] 0 % 0-5 [facility] Work Phone: [phone] MCHC Auto (RBC) [Mass/Vol]on 09-24-2021 MCHC (RBC) [Mass/Vol] 32.9 g/dL 32-36 [facility] Work Phone: No Panel Informationon 09-24 Estimated GFR (MDRD) Amer 58 mL/min >60 [facility] Work Phone: [phone] Comment on above: GFR Calc Estimated GFR (MDRD) Non-Af Amer 48 mL/min >60 [facility] Work Phone: Comment on above: Non- GFR Calc Platelets bldon 09-24-2021 Platelets (Bld) [#/Vol] 287 10*3/uL 150-450 [facility] Work Phone: [phone] Serum or plasma albumin rodriguez urement (mass/volume)on 09-24-2021 Albumin [Mass/Vol] 3.5 g/dL 3.2-5.0 [facility] Work Phone: [phone] Serum or plasma albumin/glob ulin mass ratioon 09-24-2021 Albumin/Globulin [Mass ratio] 1.0 {ratio} 0.9-2.4 [facility] Work Phone: [phone] Serum or plasma calcium rodriguez urement (mass/volume)on 09-24-2021 Calcium [Mass/Vol] 10.9 mg/dL 8.5-10.1 [facility] Work Phone: Serum or plasma cholesterol in HDL measurement (mass/volume)on 09-24-2021 Cholesterol in HDL [Mass/Vol] 57 mg/dL >40 [facility] Work Phone: Comment on above: The drugs N-Acetylcy steine and Metamizole may falsely depress this assay. Reference Range HDL <40 mg/dL Low HDL Cholesterol HDL >or= 60 mg/dL High HDL Cholesterol Serum or plasma cholesterol in VLDL measurement (mass/volume)on 09-24-2021 Cholesterol in VLDL [Mass/Vol] 29 mg/dL 5-40 [facility] Work Phone: Serum or plasma creatinine m easurement (mass/volume)on 09-24-2021 Creatinine [Mass/Vol] 1.17 mg/dL 0.55-1.02 [facility] Work Phone: Comment on above: The validity of the calculated GFR & GFRAA in patients over 70 years has not been determined. Clinical correlation is essential. Serum or plasma low density lipoprotein (LDL) cholesterol measurement (mass/volume)on 09-24-2021 Cholesterol in LDL [Mass/Vol] 89 mg/dL 0-130 [facility] Work Phone: Serum or plasma urea nitroge n measurement (mass/volume)on 09-24-2021 Urea nitrogen [Mass/Vol] 20 mg/dL 7-18 [facility] Work Phone: [phone] Thin prep Papanicolaou smear with manual screeningon 09-24-2021 Thin prep Papanicolaou smear with manual screening 19 U/L 15-37 [facility] Work Phone: [phone] Thin prep Papanicolaou smear with manual screening 5 5-15 [facility] Work Phone: [phone] .Auto Diffon 09-18-2018 Ammonia (P) [Mass/Vol] 1.20 10 3/mcL High 0.15-1.00 [facility] ([place]) Comment on above: Performed By: #### B MP, GFR #### [address] [address] Basophils (Bld) [#/Vol] 0.00 10 3/mcL Normal 0.00-0.19 [facility] ([place] Comment on above: Performed By: #### B MP, GFR #### [address] [address] Basophils/100 WBC (Bld) 0.3 % Normal 0.0-2.5 [facility] ([place]) Comment on above: Performed By: #### B MP, GFR #### [address] [address] Eosinophils (Bld) [#/Vol] 0.00 10 3/mcL Normal 0.00-0.40 [facility] ([place] Comment on above: Performed By: #### B MP, GFR #### [address] [address] Eosinophils/100 WBC (Bld) 0.1 % Normal 0.0-7.0 [facility] ([place] Comment on above: Performed By: #### B MP, GFR #### [address] [address] Lymphocytes (Bld) [#/Vol] 1.20 10 3/mcL Normal 0.77-3.85 [facility] ([place]) Comment on above: Performed By: #### B MP, GFR #### [address] [address] Lymphocytes/100 WBC (Bld) 11.8 % Normal 10.0-50.0 [facility] ([place] Comment on above: Performed By: #### B MP, GFR #### [address] [address] Monocytes/100 WBC (Bld) 11.7 % Normal 1.7-13.0 [facility] ([place]) Comment on above: Performed By: #### B MP, GFR #### [address] [address] Neutrophils/100 WBC (Bld) 76.1 % Normal 37.0-80.0 [facility] ([place] Comment on above: Performed By: #### B MP, GFR #### [address] [address] .GFRon 09-18-2018 GFR Non- 54 ml/min/1.73sqm Normal [facility] ([place]) Comment on above: Result Comment: GFR [...] Performed By: #### B MP, GFR #### [address] [address] GFR 65 ml/min/1.73sqm Normal [facility] ([place]) Comment on above: Result Comment: GFR [...] Performed By: #### B MP, GFR #### [address] [address] .NEUABSon 09-18-2018 Neutrophils (Bld) [#/Vol] 8.00 10 3/mcL High 2.85-6.16 [facility] ([place]) Comment on above: Performed By: #### B MP, GFR #### [address] [address] BMPon 09-18-2018 Calcium [Mass/Vol] 9.8 mg/dL Normal 8.4-10.2 [facility] ([place] Comment on above: Performed By: #### B MP, GFR #### [address] [address] Chloride [Moles/Vol] 97 mmol/L Low 98-107 [facility] ([place] Comment on above: Performed By: #### B MP, GFR #### [address] [address] CO2 [Moles/Vol] 29 mmol/L Normal 23-31 [facility] ([place] Comment on above: Performed By: #### B MP, GFR #### [address] [address] Creatinine [Mass/Vol] 1.02 mg/dL Normal 0.55-1.02 [facility] ([place] Comment on above: Performed By: #### B MP, GFR #### [address] [address] Electrolyte Balance 5.0 mEq/L Normal [facility] ([place]) Comment on above: Performed By: #### B MP, GFR #### [address] [address] Glucose [Mass/Vol] 113 mg/dL High 83-110 [facility] ([place] Comment on above: Performed By: #### B MP, GFR #### [address] [address] Potassium [Moles/Vol] 4.4 mmol/L Normal 3.5-5.1 [facility] ([place] Comment on above: Performed By: #### B MP, GFR #### [address] [address] Sodium [Moles/Vol] 131 mmol/L Low 136-145 [facility] ([place] Comment on above: Performed By: #### B MP, GFR #### [address] [address] Urea nitrogen [Mass/Vol] 19 mg/dL High 7-18 [facility] [place] Comment on above: Performed By: #### B MP, GFR #### [address] [address] Urea nitrogen/Creatinine [Mass ratio] 19 ratio Normal 7-27 [facility] ([place] Comment on above: Performed By: #### B MP, GFR #### [address] [address] CBCon 09-18-2018 Erythrocyte distribution width (RBC) [Ratio] 12.7 % Normal 11.5-14.5 [facility] ([place] Comment on above: Performed By: #### C JR RIDER, ANEU #### [place] [address] #### BMP, GFR #### [address] [address] Hematocrit (Bld) [Volume fraction] 26.2 % Low 37.0-47.0 [facility] ([place] Comment on above: Performed By: #### C BCEBENEZERIFF, ANEU #### [address] [address] #### BMP, GFR #### [place] [address] Hemoglobin (Bld) [Mass/Vol] 9.4 G/dL Low 12.0-16.0 [facility] ([place] Comment on above: Performed By: #### EBENEZER ABDULLAHIIFF, ANEU #### [place] [address] #### BMP, GFR #### [address] [address] MCH (RBC) [Entitic mass] 32.7 pg High 27.0-31.2 [facility] ([place] Comment on above: Performed By: #### C BC, ADIFF, ANEU #### [address] [address] #### BMP, GFR #### [facility] [address] [place], [place] [address] MCHC (RBC) [Mass/Vol] 35.7 G/dL Normal 33.0-37.0 [facility] ([place] Comment on above: Performed By: #### C JR RIDER, ANEU #### [address] [address] #### BMP, GFR #### [address] [address] MCV (RBC) [Entitic vol] 91.5 fL Normal 80.0-94.0 A [facility] ([place] Comment on above: Performed By: #### C BC, JR, ANEU #### [address] [address] #### BMP, GFR #### [address] [address] Platelet mean volume (Bld) [Entitic vol] 8.6 fL Normal 7.4-10.4 [facility] ([place] Comment on above: Performed By: #### C JR RIDER, ANEU #### [place] [address] #### BMP, GFR #### [address] [address] Platelets (Bld) [#/Vol] 218 10 3/mcL Normal 130-400 [facility] ([place] Comment on above: Performed By: #### C JR RIDER, ANEU #### [place] [address] #### BMP, GFR #### [address] [address] RBC (Bld) [#/Vol] 2.86 10 6/mcL Low 4.20-5.40 [facility] ([place] Comment on above: Performed By: #### C BC, JR, ANEU #### [place] [address] #### BMP, GFR #### [address] [address] WBC (Bld) [#/Vol] 10.50 10 3/mcL Normal 4.60-10.80 [facility] ([place] Comment on above: Performed By: #### C BC, ADIFF, ANEU #### [address] [address] #### BMP, GFR #### [address] [address] NAon 09-18-2018 Sodium [Moles/Vol] 130 mmol/L Low 136-145 [facility] ([place] Comment on above: Performed By: #### B MP, GFR #### [address] [address] .GFRon 09-17-2018 GFR Non- 50 ml/min/1.73sqm Normal [facility] [place] Comment on above: Result Comment: GFR Population [...] Performed By: #### B MP, GFR #### [address] [address] GFR 60 ml/min/1.73sqm Normal [facility] ([place] Comment on above: Result Comment: GFR Population [...] Performed By: #### B MP, GFR #### [address] [address] BMPon 09-17-2018 Calcium [Mass/Vol] 10.1 mg/dL Normal 8.4-10.2 [facility] ([place] Comment on above: Performed By: #### B MP, GFR #### [address] [address] Chloride [Moles/Vol] 101 mmol/L Normal 98-107 [facility] ([place] Comment on above: Performed By: #### B MP, GFR #### [address] [address] CO2 [Moles/Vol] 25 mmol/L Normal 23-31 [facility] ([place] Comment on above: Performed By: #### B MP, GFR #### [place] [address] Creatinine [Mass/Vol] 1.09 mg/dL High 0.55-1.02 [facility] ([place] Comment on above: Performed By: #### B MP, GFR #### [address] [address] Electrolyte Balance 10.0 mEq/L Normal [facility] ([place] Comment on above: Performed By: #### B MP, GFR #### [address] [address] Glucose [Mass/Vol] 119 mg/dL High 83-110 [facility] ([place] Comment on above: Performed By: #### B MP, GFR #### [address] [address] Potassium [Moles/Vol] 4.5 mmol/L Normal 3.5-5.1 [facility] ([place]) Comment on above: Performed By: #### B MP, GFR #### [place] [id number] Sodium [Moles/Vol] 136 mmol/L Normal 136-145 [facility] ([place]) Comment on above: Performed By: #### B MP, GFR #### [facility] [address] [place] [address] Urea nitrogen [Mass/Vol] 21 mg/dL High - [facility] ([place]) Comment on above: Performed By: #### B MP, GFR #### [facility] [address] [place] [address] Urea nitrogen/Creatinine [Mass ratio] 19 ratio Normal 09-22 [facility] ([place]) Comment on above: Performed By: #### B MP, GFR #### [facility] [address] [place] [address] XR KNEE 1 OR 2 VIEWS RIGHTon [...] Sign Date: 09/17/2018 1:49:05 PM Normal [facility] ([place]) .Auto Diffon 08-27-2018 Ammonia (P) [Mass/Vol] 0.80 10 3/mcL Normal 0.15-1.00 [facility] ([place] Comment on above: Performed By: #### C JR RIDER ANEU #### [address] [address] Basophils (Bld) [#/Vol] 0.10 10 3/mcL Normal 0.00-0.19 [facility] ([place] Comment on above: Performed By: #### JR ABDULLAHI ANEU #### [place] [address] [address] Basophils/100 WBC (Bld) 0.9 % Normal 0.0-2.5 A [facility] ([place]) Comment on above: Performed By: #### C JR RIDER ANEU #### [address] [address] Eosinophils (Bld) [#/Vol] 0.10 10 3/mcL Normal 0.00-0.40 [facility] ([place]) Comment on above: Performed By: #### C JR RIDER, ANEU #### [address] [address] Eosinophils/100 WBC (Bld) 1.6 % Normal 0.0-7.0 [facility] ([place]) Comment on above: Performed By: #### C JR RIDER, ANEU #### [address] [address] Lymphocytes (Bld) [#/Vol] 2.10 10 3/mcL Normal 0.77-3.85 [facility] ([place]) Comment on above: Performed By: #### JR ABDULLAHI, ANEU #### [place] [address] [address] Lymphocytes/100 WBC (Bld) 24.4 % Normal 10.0-50.0 [facility] ([place]) Comment on above: Performed By: #### JR ABDULLAHI, ANEU #### [address] [address] Monocytes/100 WBC (Bld) 8.9 % Normal 1.7-13.0 A [facility] ([place]) Comment on above: Performed By: #### JR ABDULLAHI, ANEU #### [place] [address] [address] Neutrophils/100 WBC (Bld) 64.2 % Normal 37.0-80.0 [facility] ([place]) Comment on above: Performed By: #### JR ABDULLAHI, ANEU #### [place] [address] [address] .GFRon 08-27-2018 GFR 66 ml/min/1.73sqm Normal [facility] ([place]) Comment on above: Result Comment: GFR [...] Performed By: #### B MP, GFR #### [address] [address] GFR Non- 54 ml/min/1.73sqm Normal [facility] ([place] Comment on above: Result Comment: GFR Population [...] Performed By: #### B MP, GFR #### [address] [address] .NEUABSon 08-27-2018 Neutrophils (Bld) [#/Vol] 5.50 10 3/mcL Normal 2.85-6.16 [facility] ([place] Comment on above: Performed By: #### Estephania BC, JR, ANEU #### [place] [address] [address] BMPon 08-27-2018 Calcium [Mass/Vol] 11.6 mg/dL High 8.4-10.2 [facility] ([place] Comment on above: Performed By: #### Yessica MP, GFR #### [address] [address] Chloride [Moles/Vol] 100 mmol/L Normal 98-107 [facility] ([place]) Comment on above: Performed By: #### B MP, GFR #### [address] [address] CO2 [Moles/Vol] 30 mmol/L Normal 23-31 [facility] [place] Comment on above: Performed By: #### B MP, GFR #### [address] [address] Creatinine [Mass/Vol] 1.01 mg/dL Normal 0.55-1.02 [facility] ([place]) Comment on above: Performed By: #### B MP, GFR #### [address] [address] Electrolyte Balance 9.0 mEq/L Normal [facility] ([place]) Comment on above: Performed By: #### B MP, GFR #### [address] [address] Glucose [Mass/Vol] 97 mg/dL Normal 83-110 [facility] ([place] Comment on above: Performed By: #### B MP, GFR #### [address] [address] Potassium [Moles/Vol] 4.1 mmol/L Normal 3.5-5.1 [facility] ([place]) Comment on above: Performed By: #### B MP, GFR #### [address] [address] Sodium [Moles/Vol] 139 mmol/L Normal 136-145 [facility] ([place] Comment on above: Performed By: #### B MP, GFR #### [address] [address] Urea nitrogen [Mass/Vol] 19 mg/dL High 7-18 [facility] ([place] Comment on above: Performed By: #### B MP, GFR #### [address] [address] Urea nitrogen/Creatinine [Mass ratio] 19 ratio Normal 7-27 [facility] ([place] Comment on above: Performed By: #### B MP, GFR #### [place] [address] [place] [id number] [place] [address] 08-27-2018 Erythrocyte distribution width (RBC) [Ratio] 12.6 % Normal 11.5-14.5 [facility] [place] Comment on above: Performed By: #### C JR RIDER, ANEU #### [address] [address] Hematocrit (Bld) [Volume fraction] 35.3 % Low 37.0-47.0 [facility] ([place] Comment on above: Performed By: #### JR ABDULLAHI, ANEU #### [address] [address] Hemoglobin (Bld) [Mass/Vol] 12.5 G/dL Normal 12.0-16.0 [facility] [place] Comment on above: Performed By: #### JR ABDULLAHI, ANEU #### [address] [address] MCH (RBC) [Entitic mass] 32.2 pg High 27.0-31.2 [facility] ([place] Comment on above: Performed By: #### JR ABDULLAHI, ANEU #### [address] [address] MCHC (RBC) [Mass/Vol] 35.3 G/dL Normal 33.0-37.0 [facility] ([place]) Comment on above: Performed By: #### JR ABDULLAHI, ANEU #### [place] [address] [address] MCV (RBC) [Entitic vol] 91.2 fL Normal 80.0-94.0 A [facility] ([place]) Comment on above: Performed By: #### JR ABDULLAHI, ANEU #### [place] [address] [address] Platelet mean volume (Bld) [Entitic vol] 8.2 fL Normal 7.4-10.4 [facility] ([place] Comment on above: Performed By: #### C BC, ADIFF, ANEU #### [place] [address] [place], [place] [address] Platelets (Bld) [#/Vol] 323 10 3/mcL Normal 130-400 [facility] ([place]) Comment on above: Performed By: #### C JR RIDER, ANEU #### [place] [address] [place], [place] [address] RBC (Bld) [#/Vol] 3.87 10 6/mcL Low 4.20-5.40 [facility] ([place]) Comment on above: Performed By: #### C JR RIDER, ANEU #### [place] [address] [place], [place] [address] WBC (Bld) [#/Vol] 8.60 10 3/mcL Normal 4.60-10.80 [facility] ([place]) Comment on above: Performed By: #### C RJ RIDER, ANEU #### [place] [address] [place], [place] [address] CT KNEE W/O CONTRAST RIGHTon 08-27-2018 CT [...] Sign Date: 08/27/2018 3:14:38 PM Normal [facility] ([place]) [place] 05-18-2017 CN Office Visit (UCWSTR) YAJAIRA BUNN ([id number]) 1945 FDate Time Provider Department05/18/17 11:00 AM RAMBO SAUCEDO [facility] During your visit today, we recorded [...] 05/18/2017 11:30 AM >> HOA DORSEY LPN [facility] May 18, 2017 11:30 AM Not [...] Status:Closed by RAMBO SAUCEDO MD on 05/18/17 [facility] PROGRESSon 05-18-2017 PROGRESS HNO ID: [id number]: Rambo Rojaservice: (none)Author Type: PhysicianType: Progress NotesFiled: [...] pain, shortness of breath.Rambo Saucedo MD Normal [facility] Vital Signs Date Time Vital Sign Value Performing Clinician Faci hannah 11-20-2024 12:58-0400 Body height 152.4 cm Se Bryan MD Work Phone: [facility] 11-20-2024 12:58-0400 Body mass index (BMI) [Ratio] 33.5 kg/m2 Se Bryan MD Work Phone: [facility] 11-20-2024 12:58-0400 Body temperature 97.6 [degF] Se Bryan MD Work Phone: [facility] 11-20-2024 12:58-0400 Body weight 78.01 kg Se Bryan MD Work Phone: [facility] 11-20-2024 12:58-0400 Diastolic blood pressure 90 mm[Hg] Se Bryan MD Work Phone: [facility] 11-20-2024 12:58-0400 Heart rate 72 /min Se Bryan MD Work Phone: [facility] 11-20-2024 12:58-0400 Respiratory rate 18 /min Se Bryan MD Work Phone: [facility] 11-20-2024 12:58-0400 SaO2% (BldA) [Mass fraction] 99 % Se Bryan MD Work Phone: [facility] 11-20-2024 12:58-0400 Systolic blood pressure 170 mm[Hg] Se Bryan MD Work Phone: [facility] 10-24-2024 15:21-0400 Body height 152.4 cm Se Bryan MD Work Phone: [facility] 10-24-2024 15:21-0400 Body mass index (BMI) [Ratio] 33.4 kg/m2 Se Bryan MD Work Phone: [facility] 10-24-2024 15:21-0400 Body weight 77.56 kg Se Bryan MD Work Phone: [facility] 10-24-2024 15:21-0400 Diastolic blood pressure 76 mm[Hg] Se Bryan MD Work Phone: [facility] 10-24-2024 15:21-0400 Heart rate 82 /min Se Bryan MD Work Phone: [facility] 10-24-2024 15:21-0400 SaO2% (BldA) [Mass fraction] 98 % Se Bryan MD Work Phone: [facility] 10-24-2024 15:21-0400 Systolic blood pressure 151 mm[Hg] Se Bryan MD Work Phone: [facility] 08-28-2024 21:00-0400 Diastolic blood pressure 70 mm[Hg] Se Bryan MD Work Phone: [facility] 08-28-2024 21:00-0400 Heart rate 79 /min Se Bryan MD Work Phone: [facility] 08-28-2024 21:00-0400 Respiratory rate 22 /min Se Bryan MD Work Phone: [facility] 08-28-2024 21:00-0400 SaO2% (BldA) [Mass fraction] 99 % Se Bryan MD Work Phone: [facility] 08-28-2024 21:00-0400 Systolic blood pressure 158 mm[Hg] Se Bryan MD Work Phone: [facility] 08-28-2024 20:17-0400 Body temperature 97.7 [degF] Se Bryan MD Work Phone: [facility] 08-28-2024 17:16-0400 Body height 152.4 cm eS Bryan MD Work Phone: [facility] 08-28-2024 17:16-0400 Body mass index (BMI) [Ratio] 32.8 kg/m2 Se Bryan MD Work Phone: [facility] 08-28-2024 17:16-0400 Body weight 76.24 kg Se Bryan MD Work Phone: [facility] 08-26-2024 13:49-0400 Body height 152.4 cm Se Bryan MD Work Phone: [facility] 08-26-2024 13:49-0400 Body mass index (BMI) [Ratio] 33 kg/m2 Se Bryan MD Work Phone: [facility] 08-26-2024 13:49-0400 Body weight 76.65 kg Se Bryan MD Work Phone: [facility] 08-26-2024 13:49-0400 Diastolic blood pressure 80 mm[Hg] Se Bryan MD Work Phone: [facility] 08-26-2024 13:49-0400 Heart rate 85 /min Se Bryan MD Work Phone: [facility] 08-26-2024 13:49-0400 SaO2% (BldA) [Mass fraction] 96 % Se Bryan MD Work Phone: [facility] 08-26-2024 13:49-0400 Systolic blood pressure 144 mm[Hg] Se Bryan MD Work Phone: [facility] 02-22-2023 13:06-0500 Body height 152.4 cm [facility] 02-22-2023 13:06-0500 Body mass index (BMI) [Ratio] 31.2 kg/m2 [facility] 02-22-2023 13:06-0500 Body temperature 97.3 [degF] [facility] 02-22-2023 13:06-0500 Body weight 72.57 kg [facility] 02-22-2023 13:06-0500 Diastolic blood pressure 62 mm[Hg] [facility] 02-22-2023 13:06-0500 Heart rate 83 /min [facility] 02-22-2023 13:06-0500 Respiratory rate 16 /min [facility] 02-22-2023 13:06-0500 SaO2% (BldA) [Mass fraction] 97 % [facility] 02-22-2023 13:06-0500 Systolic blood pressure 157 mm[Hg] [facility] 10-20-2022 11:16-0400 Body height 152.[address] Danny Jeronimo Work Phone: [facility] 10-20-2022 11:16-0400 Body mass index (BMI) [Ratio] 33 kg/m2 Dr. Danny Jeronimo Work Phone: [facility] 10-20-2022 11:16-0400 Body temperature 98.3 [degF] Dr. Danny Jeronimo Work Phone: [facility] 10-20-2022 11:16-0400 Body weight 76.[address] Danny Jeronimo Work Phone: [facility] 10-20-2022 11:16-0400 Diastolic blood pressure 70 mm[Hg] Dr. Danny Jeronimo Work Phone: [facility] 10-20-2022 11:16-0400 Heart rate 74 /min Dr. Danny Jeronimo Work Phone: [facility] 10-20-2022 11:16-0400 Respiratory rate 18 /min Dr. Danny Jeronimo Work Phone: [facility] 10-20-2022 11:16-0400 SaO2% (BldA) [Mass fraction] 98 % Dr. Danny Jeronimo Work Phone: [facility] 10-20-2022 11:16-0400 Systolic blood pressure 146 mm[Hg] Dr. Danny Jeronimo Work Phone: [facility] 08-24-2022 12:54-0400 Body height 152.4 cm [facility] 08-24-2022 12:54-0400 Body mass index (BMI) [Ratio] 32.2 kg/m2 [facility] 08-24-2022 12:54-0400 Body temperature 97.9 [degF] [facility] 08-24-2022 12:54-0400 Body weight 74.84 kg [facility] 08-24-2022 12:54-0400 Diastolic blood pressure 6 mm[Hg] [facility] 08-24-2022 12:54-0400 Heart rate 76 /min [facility] 08-24-2022 12:54-0400 Respiratory rate 16 /min [facility] 08-24-2022 12:54-0400 SaO2% (BldA) [Mass fraction] 96 % [facility] 08-24-2022 12:54-0400 Systolic blood pressure 156 mm[Hg] [facility] 02-23-2022 12:56-0500 Body height 152.4 cm [facility] 02-23-2022 12:56-0500 Body mass index (BMI) [Ratio] 32.2 kg/m2 [facility] 02-23-2022 12:56-0500 Body temperature 97 [degF] [facility] 02-23-2022 12:56-0500 Body weight 74.84 kg [facility] 02-23-2022 12:56-0500 Diastolic blood pressure 54 mm[Hg] [facility] 02-23-2022 12:56-0500 Heart rate 84 /min [facility] 02-23-2022 12:56-0500 Respiratory rate 16 /min [facility] 02-23-2022 12:56-0500 SaO2% (BldA) [Mass fraction] 96 % [facility] 02-23-2022 12:56-0500 Systolic blood pressure 144 mm[Hg] [facility] 10-26-2021 13:27-0400 Body height 152.[address] Jenaro Loo Work Phone: [facility] Work Phone: 10-22-2021 11:34-0400 Body mass index (BMI) [Ratio] 32.9 kg/m2 Dr. Jenaro Loo Work Phone: [facility] Work Phone: 10-22-2021 11:34-0400 Body temperature 96.6 [degF] Dr. Jenaro Loo Work Phone: [facility] Work Phone: 10-22-2021 11:34-0400 Body weight 76.[address] Jenaro Loo Work Phone: [facility] Work Phone: 10-22-2021 11:34-0400 Diastolic blood pressure 69 mm[Hg] Dr. Jenaro Loo Work Phone: [facility] Work Phone: 10-22-2021 11:34-0400 Heart rate 83 /min Dr. Jenaro Loo Work Phone: [facility] Work Phone: 10-22-2021 11:34-0400 Respiratory rate 16 /min Dr. Jenaro Loo Work Phone: [facility] Work Phone: 10-22-2021 11:34-0400 SaO2% (BldA) [Mass fraction] 93 % Dr. Jenaro Loo Work Phone: [facility] Work Phone: 10-22-2021 11:34-0400 Systolic blood pressure 123 mm[Hg] Dr. Jenaro Loo Work Phone: [facility] Work Phone: 08-18-2021 12:48-0400 Body height 152.4 cm [facility] Work Phone: 08-18-2021 12:48-0400 Body mass index (BMI) [Ratio] 31.2 kg/m2 [facility] Work Phone: 08-18-2021 12:48-0400 Body temperature 97.9 [degF] [facility] Work Phone: 08-18-2021 12:48-0400 Body weight 72.57 kg [facility] Work Phone: 08-18-2021 12:48-0400 Diastolic blood pressure 54 mm[Hg] [facility] Work Phone: 08-18-2021 12:48-0400 Heart rate 79 /min [facility] Work Phone: 08-18-2021 12:48-0400 Respiratory rate 14 /min [facility] Work Phone: 08-18-2021 12:48-0400 SaO2% (BldA) [Mass fraction] 98 % [facility] Work Phone: 08-18-2021 [id number] Systolic blood pressure 132 mm[Hg] [facility] Work Phone: Encounters Encounter Date Encounter Type Care Provider Facility Start: 01-06-2025 ambulatory Je Burnett Facility: [facility] Start: 01-02-2025 Encounter for other preprocedural examination Je Burnett [facility] Start: 01-01-2025 ambulatory Se Randi Facility:[facility] Start: 01-01-2025 End: 01-02-2025 Evaluation and management of inpatient Tyroneelva Naik Facility:[facility] Start: 01-01-2025 ambulatory Kristie [place] Facility :[facility] Start: 12-20-2024 ambulatory Je [facility] Facility: [facility] Start: 12-16-2024 End: 12-16-2024 ambulatory [facility] Facility:[facility] Start: 12-11-2024 End: 12-11-2024 ambulatory Chalmary Replaced By [facility] Facility:[facility] Start: 12-03-2024 End: 12-03-2024 ambulatory [facility] Facility:[facility] Start: 11-20-2024 End: 11-20-[address] Je Burnett MD -[facility] Work Phone: Start: 11-20-2024 End: 11-20-2024 ambulatory Se Bryan MD Work Phone: -[facility] Start: 11-15-2024 End: 11-15-2024 ambulatory Se Bryan MD Work Phone: -Laboratory Start: 11-15-2024 End: 11-15-[address] Guicho Quezada MD -Laboratory Work Phone: Start: 11-15-2024 End: 11-15-2024 ambulatory Kristie Simon Facility:[facility] Start: 11-05-2024 End: 11-05-2024 ambulatory Se Bryan MD Work Phone: -Nuclear Medicine [facility] Start: 11-05-2024 End: 11-05-2024 Patient encounter procedure Kristie Montes MATRIX REPAIRERMike -Nuclear Medicine [facility] Work Phone: Start: 11-04-2024 End: 11-05-2024 ambulatory Se Bryan MD Work Phone: -Ultrasound [facility] Start: 11-04-2024 End: 11-04-[address] Guicho Quezada MD -Ultrasound [facility] Work Phone: Start: 11-04-2024 End: 11-04-2024 ambulatory Chalon Randi Facility:[facility] Start: 10-24-2024 End: 10-24-[address] Guicho Quezada MD -[facility] Work Phone: Start: 10-24-2024 End: 10-24-2024 ambulatory Se Bryan MD Work Phone: -[facility] Start: 10-11-2024 End: 10-11-2024 ambulatory Se Bryan MD Work Phone: -Laboratory [place] Start: 10-11-2024 End: 10-11-[address] Guicho Quezada MD -Laboratory [place] Work Phone: Start: 10-11-2024 End: 10-11-2024 ambulatory Chalon Randi Facility:[facility] Start: 08-28-2024 End: 08-28-2024 Emergency department patient visit Se Bryan MD Work Phone: -Emergency Department Work Phone: Start: 08-26-2024 End: 08-26-[address] Guicho Quezada MD -[facility] Work Phone: Start: 08-26-2024 End: 08-26-2024 ambulatory Se Bryan MD Work Phone: -[facility] Start: 08-26-2024 End: 08-26-2024 ambulatory Guicho Quezada Facility:[facility] Start: 02-23-2024 End: 02-23-2024 ambulatory Chalon Randi Facility:[facility] Start: 06-20-2023 Non-patient / Non-visit DO Gianluca Singleton Work Phone: [facility] Start: 06-20-2023 End: 06-20-2023 ambulatory DO Katie Singleton Work Phone: [facility] Work Phone: Start: 06-20-2023 End: 06-20-2023 Patient encounter procedure DO Katie Singleton Work Phone: [facility]-Pulmonary Services/Neurology Work Phone: Start: 04-11-2023 End: 04-11-2023 Patient encounter procedure DO Katie Singleton Work Phone: [facility] Work Phone: Start: 02-22-2023 End: 02-22-2023 ambulatory [facility] Work Phone: Start: 02-22-2023 End: 02-22-2023 Patient encounter procedure [facility]-Medical Out Work Phone: Start: 12-05-2022 End: 12-05-[address] Danny Jeronimo Work Phone: [facility] Work Phone: Start: 12-05-2022 End: 12-05-[address] Danny Jeronimo Work Phone: [facility]-Outpatient Breast Imaging Work Phone: Start: 10-20-2022 End: 10-20-[address] Danny Jeronimo Work Phone: [facility] Work Phone: Start: 10-11-2022 End: 10-11-[address] Danny Jeronimo Work Phone: [facility] Work Phone: Start: 10-11-2022 End: 10-11-[address] Danny Jeronimo Work Phone: [facility]-Laboratory Work Phone: Start: 09-28-2022 Non-patient / Non-visit Dr. Gricelda Jeronimo Work Phone: [facility] Start: 09-28-2022 End: 09-28-[address] Danny Jeronimo Work Phone: [facility] Work Phone: Start: 09-28-2022 End: 09-28-[address] Danny Jeronimo Work Phone: [facility]-Pulmonary Services/Neurology Work Phone: Start: 08-24-2022 End: 08-24-2022 ambulatory [facility] Work Phone: Start: 08-24-2022 End: 08-24-2022 Patient encounter procedure [facility]-Medical Out Work Phone: Start: 03-31-2022 End: 03-31-2022 ambulatory [facility] Work Phone: Start: 03-31-2022 End: 03-31-2022 Patient encounter procedure [facility] Start: 02-23-2022 End: 02-23-2022 ambulatory [facility] Work Phone: Start: 02-23-2022 End: 02-23-2022 Patient encounter procedure [facility] Start: 10-26-2021 End: 10-26-[address] Jenaro Loo Work Phone: [facility] Work Phone: Start: 10-26-2021 End: 10-26-[address] Jenaro Loo Work Phone: [facility]-Outpatient Bone Densitometry Start: 10-22-2021 End: 10-22-[address] Jenaro Loo Work Phone: [facility] Start: 09-24-2021 End: 09-24-2021 Patient encounter procedure [facility]-Laboratory, Eduardo Start: 08-18-2021 End: 08-18-2021 Patient encounter procedure [facility] Start: 05-18-2017 End: 05-18-2017 Ambulatory [facility] Wu Procedures Date Procedure Procedure Detail [...] Screening mammography SCRN MAMM (CAD)W/OMEGA BILAT [facility] Basic metabolic 2008 panel with ionized calcium - Serum or Plasma [facility] Cobalamin (Vitamin B 12) [Mass/volume] in Serum or Plasma [facility] Ferritin [Mass/volum e] in Serum or Plasma [facility] Patient Education Hypercalcemia Dc [facility] Work Phone: Vitamin D, 25-hydrox y measurement [facility] Work Phone: Vitamin D, 25-hydrox y measurement [facility] Work Phone: [facility] Immunizations Immunization Date Immunization Notes Care Provider Fa cili 01-14-2021 Covin (Moderna) [facility] 05-25-2020 Covin (Moderna) [facility] 04-27-2020 [facility] Payers Date Payer Category Payer Self-pay [id number] 2024 Unknown [id number] Medicare [id number] Unknown [id number] 2.16.8 [id number] Unknown [id number] 2.16.8 [id number] Unknown [id number] 2.16.8 [id number] Unknown [id number] 2.16.8 [id number] Unknown [id number] 2.16.8 [id number] Unknown [id number] 2.16.8 [id number] Unknown [id number] 2.16.8 [id number] Unknown [id number] 2.16.8 [id number] Unknown [id number] 2.16.8 [id number] Unknown [id number] 2.16.8 [id number] Unknown [id number] 2.16.8 [id number] Unknown [id number] 2.16.8 [id number] Unknown [id number] 2.16.8 [id number] Unknown [id number] 2.16.8 [id number] Unknown [id number] 2.16.8 [id number] Unknown [id number] 2.16.8 [id number] Unknown [id number] 2.16.8 [id number] Unknown [id number] 2.16.8 [id number] Unknown [id number] 2.16.8 [id number] Social History Date Type Detail Facility Start: 10-31-2019 End: 04-11-2023 Tobacco smoking status NVIS Unknown if ever smoked [facility] Start: 08-18-2020 Rare [facility] Start: 08-18-2020 None [facility] Start: 08-18-2020 Homeless [facility] Start: 08-18-2020 Non-smoker [facility] Start: 1945 Sex Assigned At Female W [facility] Start: 01-24-2024 End: 08-28-2024 Tobacco smoking status NHIS Ex-smoker (finding) [facility] Sex Female [facility] Mental Status Date Assessment Result Facility 08-28-2024 Cognitive function Level Of Cons ciousness Awake;Alert;Appropriate;Follow s Commands [facility] Work Phone: 02-22-2023 Cognitive function Voice/Name [facility] Work Phone: 08-24-2022 Cognitive function Awake;Alert;A ppropriate;Follow s Commands [facility] Work Phone: 02-23-2022 Cognitive function Voice/Name [facility] Work Phone: 08-18-2021 Cognitive function Voice/Name [facility] Work Phone: Clinical Notes 09-28-2022 to 01-02-2025 Note Date & Type Note Facility 01-02-2025 Note [facility] Medical Records Department [address] [place] [address] Discharge Summary 01/02/25 1410 MR#: [id number] Acct: [id number] Name: YAJAIRA BUNN Rep #: [id number] : 1945 79 From: Tyrone Naik DO PCP: Dr. Se Bryan MD Status:ADM IN Location: [place] [address] Providers Date of Admission: 01/01/25 Primary Care [...] mg-vit E 90 mg-zinc 40 mg-copper 1 sq-emfimg-zpnslj capsule (PreserVision AREDS-2) 1 tab PO BID eye health 08/18/21 denosumab 60 mg/mL subcutaneous syringe (Prolia) 60 mg subcut [id number] bnes #1 mL 10/20/22 cinacalcet 30 mg [...] sulfate [Jamaal (more content not included)... [facility] 11-20-2024 Progress note [facility] 11-20-2024 Progress note Note Date/Time November 20, 2024 2:24pm [facility] [address] [place] [address] [address] [place] [address] OFFICE VISIT Date of Service: 11/20/24 MR#: [id number] Acct: [id number] Name: YAJAIRA BUNN Rep #: [id number] : 1945 Provider: Dr. Jh Burnett MD Age/Sex: 79/F Location: [facility] Status: Signed Intake Vital Signs 10/24/24 15:21 [...] PO BID 08/18/21 11/20/24 History mg-copper 1 nb-buyaje-lhtpsq capsule (PreserVision AREDS-2) denosumab 60 mg/mL subcutaneous 60 mg subcut [id number] #1 mL 10/20/22 11/20/24 Rx syringe (Prolia) [...] initially identified by Dr. Jenaro Conroy at [facility] due to elevated calcium levels exceeding 10mg/dL. [...] Bryan MD; Dr. Guicho Quezada MD ~ [facility] Work Phone: 1(864) 349-965409-09-2025 Nuclear medicine Diagnostic study note [facility] Imaging Services [address] [place] [address] [id number] Parathyroid Scan MR#: [id number] Acct: [id number] Name: YAJAIRA BUNN Rep #: [id number] : 1945 F 79 From: Lefty Murillo MD PCP: Dr. Se Bryan MD Status: REG CL I Study:Parathyroid Scan Date of Exam: 11/21 Exam# [id number] Ordering Dr: Levon Quezada i, MD PROCEDURE: [...] a left inferior parathyroid adenoma. Reading Location: [place] [address] CC: OMA Montes; Dr. Se Bryan MD; Dr. Guicho Quezada MD ~ Project Superintendent: Signed [facility]09-08-2025 Radiology Diagnostic study note [facility] Imaging Services [address] [place] [address] 216341 Thyroid MR#: [id number] Acct: [id number] Name: YAJAIRA BUNN Rep #: [id number] : 1945 F 79 From: Benny Siegel MD PCP: Dr. Se Bryan MD Status: REG CL I Study:Thyroid Date of Exam: 11/04/24 Exam# [id number] Ordering Dr: Levon Quezada i, MD PROCEDURE: [...] no more than 2 nodules. Reading Location: [facility] CC: Dr. Se Bryan MD; Dr. Guicho Quezada MD ~ Project Superintendent: Signed [facility]07-02-2025 Discharge summary [facility] Medical Records Department [address] [place] [address] Emergency Department Summary 08/28/24 MR#: [id number] Acct: [id number] Name: YAJAIRA BUNN Rep #:[id number] : 1945 78 From: Lorne Cherry MD [...] PO BID 08/18/21 Unknown History mg-copper 1 fv-wekrzm-zxqsyq capsule (PreserVision AREDS-2) denosumab 60 mg/mL subcutaneous 60 mg subcut [id number] #1 mL 10/20/22 Unknown Rx syringe (Prolia) [...] for EKG changes. Should be a short AR interval etc. Lab Data Lab results narrative: [...] % (Auto) 67.4 Lymph % (Auto) 19.2 Arthur % (Auto) 9.6 Eos % (Auto) 2.7 [...] follows: Interpretation: Sinus Rhythm (Rate is 79. Due [place] the left. AR interval is 204 ms. Cures duration 80 [...] Prolia 60 mg/mL syringe 60 mg SC [id number] Qty: 1 1RF cholecalciferol (vitamin D3) 25 mcg (1,000 unit) capsule 50 mcg PO QDAY omeprazole magnesium 20 MG tablet,delayed release (DR/EC) 20 mg PO DAILY PreserVision AREDS-2 250-90-40-1 mg Capsule 1 tab PO BID Primary Care Provider: Se Bryan Referrals: Se Bryan MD [Primary Care Provider] - Guicho Quezada MD [Med Staff - Courtesy Staff] - As Needed Print Language: Khmer Disposition Disposition: Home, Self Care What to do if you have Problems For any increased pain, shortness of breath, bleeding, nausea or vomiting, chestpain, or any unexpected problems, contact your Primary Care Provider. Call [facility] ([phone]) or report tothe closest Emergency Room. Call 911 if necessary. 08/28/242022 Cosigner Signature (if applicable): CC: Dr. Se Bryan MD ~ Signed [facility]07-02-2025 Discharge summary Author Lorne Cherry [facility] Note Date/Time August 28, 2024 8:23p m [facility] Medical Records Department [address] [place] [address] Emergency Department Summary 08/28/24 MR#: [id number] Acct: [id number] Name: YAJAIRA BUNN Rep #:[id number] : 1945 78 From: Lorne Cherry MD [...] PO BID 08/18/21 Unknown History mg-copper 1 zj-ftctgq-kqtxvi capsule (PreserVision AREDS-2) denosumab 60 mg/mL subcutaneous 60 mg subcut [id number] #1 mL 10/20/22 Unknown Rx syringe (Prolia) [...] for EKG changes. Should be a short AR interval etc. Lab Data Lab results narrative: [...] % (Auto) 67.4 Lymph % (Auto) 19.2 Arthur % (Auto) 9.6 Eos % (Auto) 2.7 [...] follows: Interpretation: Sinus Rhythm (Rate is 79. Due [place] the left. AR interval is 204 ms. Cures duration 80 [...] Prolia 60 mg/mL syringe 60 mg SC [id number] Qty: 1 1RF cholecalciferol (vitamin D3) 25 mcg (1,000 unit) capsule 50 mcg PO QDAY omeprazole magnesium 20 MG tablet,delayed release (DR/EC) 20 mg PO DAILY PreserVision AREDS-2 250-90-40-1 mg Capsule 1 tab PO BID Primary Care Provider: Se Bryan Referrals: Se Bryan MD [Primary Care Provider] - Guicho Quezada MD [Med Staff - Courtesy Staff] - As Needed Print Language: Khmer Disposition Disposition: Home, Self Care What to do if you have Problems For any increased pain, shortness of breath, bleeding, nausea or vomiting, chestpain, or any unexpected problems, contact your Primary Care Provider. Call [facility] ([phone]) or report to the closest Emergency Room. Call 911 if necessary. 08/28/242022 <Electronically signed by Lorne Cherry MD> Cosigner Signature (if applicable): CC: Dr. Se Bryan MD ~ Signed [facility] Work Phone: 1(233) 525-601406-30-2025 Evaluation note* Diagnosis Onset Date Resolution Status Admit Date Osteoporosis chronic August 26, 2 025 1:50pm Primary hyperparathyroidism chronic August 26, 2024 1:50pm Vitamin D deficiency chronic August 26, 2024 1:50pm [facility] Work Phone: 1(310) 485-232706-30-2025 Evaluation note* Diagnosis Onset Date Resolution Status Admit Date Osteoporosis chronic August 26, 2 025 1:50pm Primary hyperparathyroidism chronic August 26, 2024 1:50pm Vitamin D deficiency chronic August 26, 2024 1:50pm Primary hyperparathyroidism chronic October 24, 2024 3:21pm Primary hyperparathyroidism chronic November 20, 2024 12:45pm [facility] Work Phone: 1(362) 468-452706-30-2025 Progress [facility] [address] [place] [address] OFFICE VISIT Date of Service: 08/26/24 MR#: [id number] Acct: [id number] Name: YAJAIRA BUNN Rep #: [id number] : 1945 Provider: Dr. Guicho Quezada MD Age/Sex: 78/F Location: [facility] Status: Signed Intake Vital Signs 10/20/23 13:02 08/26/24 13:49 Height 5 ft 5 ft Weight: 169 lb BMI 33.0 BP 144/80 H Blood Pressure Location Lt brachial Position Sitting Pulse 85 Pulse Source Monitor Pulse Oximetry (%) 96 Oxygen Delivery Method room air Intake Visit Reasons: 1 Y FU/ Prolia - B&B Chief Complaint: Osteoporosis Parimutuel Ticket Seller Required: No Accompanied by: Self Is patient [...] PO BID 08/18/21 08/26/24 History mg-copper 1 zx-fucdto-qukabb capsule (PreserVision AREDS-2) denosumab 60 mg/mL subcutaneous 60 mg subcut [id number] #1 mL 10/20/22 08/26/24 Rx syringe (Prolia) [...] Procedure performed by: Rosemarie Oakley Lot number: [id number] 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: [employer] date: 02/26/27 Dose of injection: 1mL Site of injection: Sub-Q Medication Given: Yes Is this a patient provided medication?: No Office Meds Prolia 60 mg/mL subcutaneous syringe Performing Provider: Guicho Quezada MD Performing Location: [facility] Administered by: Rosemarie Oakley on 08/26/24 14:02 Dose Route Admin Location Dispensed Lot Number Expiration Date [facility] 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 60 mg subcut Lt Arm 1 mL [id number] 02/26/27 95652-718-08 [employer] Clinical Quality Measures Falls Risk Screening/Assistive [...] applicable) CC: Dr. Se Bryan MD ~ [facility]06-30-2025 Progress note Author Guicho Quezada [facility] Note Date/Time August 26, 2024 2:16 pm [facility] [address] [place] [address] [address] [place] [address] OFFICE VISIT Date of Service: 08/26/24 MR#: [id number] Acct: [id number] Name: YAJAIRA BUNN Rep #: [id number] : 1945 Provider: Dr. Guicho Quezada MD Age/Sex: 78/F Location: [facility] Status: Signed Intake Vital Signs 10/20/23 13:02 08/26/24 13:49 Height 5 ft 5 ft Weight: 169 lb BMI 33.0 BP 144/80 H Blood Pressure Location Lt brachial Position Sitting Pulse 85 Pulse Source Monitor Pulse Oximetry (%) 96 Oxygen Delivery Method room air Intake Visit Reasons: 1 Y FU/ Prolia - B&B Chief Complaint: Osteoporosis Parimutuel Ticket Seller Required: No Accompanied by: Self Is patient [...] PO BID 08/18/21 08/26/24 History mg-copper 1 xm-lbhrzo-suocem capsule (PreserVision AREDS-2) denosumab 60 mg/mL subcutaneous 60 mg subcut [id number] #1 mL 10/20/22 08/26/24 Rx syringe (Prolia) [...] Procedure performed by: Rosemarie Oakley Lot number: [id number] 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: [employer] date: 02/26/27 Dose of injection: 1mL Site of injection: Sub-Q Medication Given: Yes Is this a patient provided medication?: No Office Meds Prolia 60 mg/mL subcutaneous syringe Performing Provider: Guicho Quezada MD Performing Location: [facility] Administered by: Rosemarie Oakley on 08/26/24 14:02 Dose Route Admin Location Dispensed Lot Number Expiration Date [employer] 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 60 mg subcut Lt Arm 1 mL [id number] 02/26/27 49528-584-11 [facility] Clinical Quality Measures Falls Risk Screening/Assistive Devices [...] - Extra Time Spent: G2211 (G2211) 08/26/24 3336 <Electronically signed by Guicho Quezada MD> Date _ Guicho Whitfield Signature: Date (if applicable) CC: Dr. Se Bryan MD ~ [facility] Work Phone: 1(623) 864-167804-23-2024 Procedure [facility] 09-28-[address] [facility] noteNo assessment information available[facility] Work Phone: Evaluation note* Diagnosis Onset Date Resolution Status Vitamin D deficiency acute Osteoporosis chronic Primary hyperparathyroidism [facility] Work Phone: Evaluation note* Diagnosis Onset Date Resolution Status Osteoporosis chronic Primary hyperparathyroidism chronic Vitamin D deficiency [facility] Work Phone: Evaluation note* Diagnosis Onset Date Resolution Status Admit Date Osteoporosis chronic August 26, 025 1:50pm Primary hyperparathyroidism chronic August 26, 2024 1:50pm Vitamin D deficiency chronic August 26, 2024 1:50pm [facility] Work Phone: Reason for referral (narrative)No reason for [facility] Work Phone: Summary Purpose Family History No Family History Records Found Relationship Condition Age at Onset Recorded Date/T jamie grandmother Malignant neoplasm of breast Unknown Advance Directives No Advanced Directives Records Found Advance Directive Response Recorded Date/ Time Living Will No May 20, 2017 6:21pm Power of Heat Treat Technician No May 20 6:21pm Advance Directive Response Recorded Date/ Time Living Will No May 20, 2017 5:21pm Power of Heat Treat Technician No May 20 5:21pm Advance Directive Response Recorded Date/ Time Do you have a Healthcare Power of Heat Treat Technician? Yes August 28, 2024 6:16pm Chief Complaint [...] November 04, 2024 1:32pm HYPERPARATHYROIDISM, HYPERCALCEMIA Septe [facility] 2024 10:06am E ORDERS/3 ORDERING DRS November [...] section and content) DATE CREATED AUTHOR 08/18/2017 [facility] DATE CREATED AUTHOR AUTHOR'S ORGANIZ ATION 10/19/2018 [facility] [employer] ([place]) DATE CREATED AUTHOR AUTHOR'S ORGANIZ ATION 01/08/2025 [facility] Goals (unrecognized section and content) Goals [...] BE BASED ON THE PRIMARY CLINICAL RECORDS. [employer] provides no warranty or guarantee of the accuracy or completeness of information in this document.
[2025-01-28] MEDS: Lactated Ringers 1,000 ML 15 ML IV (06:30)
--- NOTE | 2025-01-28 06:47 | PRE.ANES_ITS ---
ASA Classification* ASA Classification ASA Classification: 2 Assessment & Plan Anesthesia* Anesthesia Assessment Anesthesia Assessment: Discussed sedation and/or anesthesia options, risks, benefits, and alternatives with patient/parents/legal guardian/POA. Questions invited. The patient/parents/legal guardian/POA seems to understand and agrees to proceed with anesthesia plan. Reviewed the physical assessment, medical history, allergy history and patient home medications list prior to surgery/procedure/anesthetic and documented any changes. Performed airway and anesthesia risk assessments. Anesthesia Type Anesthesia Type: General Anesthesia Focused Assessment* Temperature: 98.6 F Pulse Rate: 86 Blood Pressure: 174/74 Respiratory Rate: 16 Pulse Ox: 98 Oxygen Delivery Method: Room Air Airway Assessment Mouth opens: >3 cm Mallampati Score: II Teeth Condition: Missing (missing molars top right) and Implants (permanent bridge left lower molars) Neck Range of motion (ROM): Limited ROM (patient states some neck stiffness) Labs Anesthesia Preop lab: CBC WBC, (4.4-11.0) 7.3 K/mm3 01/21/25, 11:50 RBC, (4.2-5.4) 3.44 M/mm3 L 01/21/25, 11:50 Hgb, (12.0-15.0) 11.0 g/dL L 01/21/25, 11:50 Hct, (37-47) 31.6 % L 01/21/25, 11:50 Plt Count, (150-450) 262 K/mm3 01/21/25, 11:50 CHEMISTRY Potassium, (3.3-5.1) 3.7 mmol/L 01/06/25, 11:48 Sodium, (133-145) 136 mmol/L 01/06/25, 11:48 Magnesium, (1.5-2.2) 1.7 mg/dL 01/01/25, 18:57 Phosphorus, (2.7-4.5) 2.1 mg/dL L 01/02/25, 04:02 BUN, (4-19) 14 mg/dL 01/06/25, 11:48 Creatinine, (0.70-1.20) 1.13 mg/dL 01/06/25, 11:48 Glucose, (70-99) 129 mg/dL H 01/06/25, 11:48 TSH, (0.300-4.200) 1.730 uIU/mL 11/15/24, 14:27 COAG Pre-Assessment Diagnosis/Proposed Procedure Planned Operative Procedure(s): PARATHYROIDECTOMY WITH PARATHYROID HORMONE AND NERVE MONITORING Anesthesia History 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 When Was Last Pacemaker Check QUESTION #4 FULL TEXT: You/Your Family Experience fever (hyperthermia) with Anesthesia Any additional information?: No Last Oral Intake Last Oral intake: Last Oral Intake NPO since 04:00 01/28/25 06:26 Meds taken in AM with sips of Yes 01/28/25 06:26 water? Meds patient instructed to see 01/28/25 06:26 take am of surgery Any additional information?: No PONV PONV - metal furnace operator: PONV - metal furnace operator Female Yes 01/21/25 14:19 HX of Motion Sickness No 01/21/25 14:19 HX of N/V After Surgery No 01/21/25 14:19 Non-Smoker Yes 01/21/25 14:19 Duration of Surgery greater Yes 01/21/25 14:19 than 60 minutes Number of Risk Factors 3 01/21/25 14:19 PONV Score Moderate Risk 01/21/25 14:19 Any additional information?: No Height & Weight Height & Weight: Anesthesia: Height & Weight Height 5 ft 01/28/25 06:26 Weight: 73.028 kg 01/28/25 06:26 Body Mass Index (BMI) 31.4 01/28/25 06:26 Respiratory Assessment Respiratory Assessment - metal furnace operator: Respiratory Tract Infection Hx - metal furnace operator Hx Respiratory Tract Infection No 01/21/25 14:19 Any additional information?: No STOP Sleep Apnea STOP Sleep Apnea - metal furnace operator: STOP Sleep Apnea - metal furnace operator Hx Hypertension Yes 01/21/25 14:19 Hx Sleep Apnea No 01/21/25 14:19 CPAP BIPAP Do you snore loudly (louder No 01/21/25 14:19 than talking or can be heard Do you often feel tired/ Yes 01/21/25 14:19 fatigued/ sleepy during daytime? Has anyone observed you stop No 01/21/25 14:19 breathing during sleep? STOP Results Positive 01/21/25 14:19 QUESTION #5 FULL TEXT : Do you snore loudly (louder than talking or can be heard through closed doors)? Any additional information?: No Tobacco Use History Tobacco Use History - metal furnace operator: Tobacco Use History - metal furnace operator Tobacco Use Non-smoker 08/18/20 07:26 Smoking Status Former smoker 01/21/25 14:19 Hx Tobacco Use No 01/21/25 14:19 Years Smoking Packs Smoked per Day Smoking Cessation Date was No - quit smoking greater 01/21/25 14:19 within the last 15 years than 15 years ago Hx Smoking Cessation Date Hx Smoking Cessation No 01/21/25 14:19 Counseling Any additional information?: No Hematologic Medial History Hematologic Hx - metal furnace operator: Hematologic Medical Hx - regulatory affairs coordinator Hx of Blood Transfusion Yes 01/21/25 14:19 Hx of Transfusion in last 3 No 01/21/25 14:19 Months Date of Last Transfusion (if within last 3 months) Ever experience any problems No 01/21/25 14:19 with transfusion(s)? Specify any problems Hx of Preganancy in last 3 No 01/21/25 14:19 Months Nurse Filling Out Transfusion [id number] 01/21/25 14:19 & Questions: Date: 01/21/25 01/21/25 14:19 Time: 14:19 01/21/25 14:19 Patient unable to answer at this time (ie. confused, unrespo Any additional information?: No /Reproduction History /Reproductive History - metal furnace operator: /Reproductive Hx- metal furnace operator Hx Now No 01/21/25 14:19 Gestational Age (in weeks): EDC: Hx Hx Para Hx Section SAB No 01/21/25 14:19 Does the father of the baby or his family experience fever w Father of the baby Malignant Hypertension history comment Any additional information?: No Active Medications Active Medications: Current Medications Generic Name Dose Route Start Last Admin Trade Name Tc PRN Reason Stop Dose Admin Lactated Ringer's 1,000 mls @ 15 mls/hr 01/28/25 06:15 01/28/25 06:30 IV 15 mls/hr .Q48H BRANDIE Administration PFSH Medical History Wears hearing aid Wears contact lenses Post-menopausal Alcohol use Thyroid disease Low iron High cholesterol Restless legs Fainted Gastric reflux Shortness of breath on exertion Former smoker History of pain when walking History of edema History of echocardiogram Vitamin D deficiency Abnormal mammogram of right breast Heart murmur Arthritis HTN (hypertension) Home Medications ?Medication ?Instructions ?Recorded ?Last Taken ?Type omeprazole magnesium 20 mg 20 mg PO DAILY acid reflux 05/20/17 01/28/25 History tablet,delayed release aspirin 81 mg chewable tablet 81 mg PO QDAY heart 07/2901/22/25 History ferrous sulfate 325 mg (65 mg 325 mg PO DAILY low iron 10/23/20 Unknown History iron) tablet (FeroSul) latanoprost 0.005 % eye drops 1 ml ophthalmic (eye) QH S retinal 10/23/20 Unknown History simvastatin 20 mg tablet 20 mg PO QHS low cholestrol 10/23/20 Unknown History vit C 250 mg-vit E 90 mg-zinc 40 1 tab PO BID eye heal th 08/18/21 Unknown History mg-copper 1 rh-aongag-gachxy capsule (PreserVision AREDS-2) denosumab 60 mg/mL subcutaneous 60 mg subcut [id number] bnes #1 mL 10/20/22 Unknown Rx syringe (Prolia) cinacalcet 30 mg tablet 30 mg PO QDAY lower parathyr oid 10/11/24 Unknown Rx #30 tabs amlodipine 5 mg tablet 5 mg PO DAILY #30 tabs 01/0201/28/25 Rx hydralazine 25 mg tablet 25 mg PO TID #90 tabs 01/28/25 Rx Allergy/AdvReac Type Severity Reaction Status Date / Time No Known Allergies Allergy Verified 01/28/25 06:19 Family History Grandmother Breast cancer Surgical History History of incision and drainage History of carpal tunnel surgery of right wrist Hx of total hip arthroplasty H/O colonoscopy History of hip surgery Social History household members: spouse Smoking Status: Former smoker alcohol intake: current alcohol intake frequency: holidays/special occasions only Review of Systems (Anesthesia) ROS Narrative System reviewed and no additional complaints, except as documented. Physical Exam Narrative Two fingers on right hand numb from carpal tunnel.
[2025-01-28 06:53] LABS: PTHIN 190 pg/mL (11-61)
--- NOTE | 2025-01-28 07:23 | PCM.HP.BLA ---
History and Physical Date of Admission: 01/28/25 Date of Service: 01/16/25 MR#: [id number] Acct: [id number] Name: YAJAIRA BUNN Rep #: [id number] : 1945 Provider: Dr. Je Burnett MD Age/Sex: 79/F Location: [facility] Status: Signed Intake Vital Signs 01/02/2520:30 01/17/2508:30 Height 5 ft 5 ft Weight: 162 lb BMI 31.6 BP 166/75 H Blood Pressure Location Rt brachial Position Sitting Respiration 16 Pulse 88 Intake Visit Reasons: UPDATE H&P PARATHYROIDECTOMY Chief Complaint: hyperparathyroidism Field Appraiser Required: No Is patient in pain?: No Allergies No Known Allergies Allergy (Verified 01/16/25 08:30) Medications ?Medication ?Instructions ?Recorded ?Confirmed ?Type omeprazole magnesium 20 mg 20 mg PO DAILY acid reflux 05/20/17 01/16/25 History tablet,delayed release aspirin 81 mg chewable tablet 81 mg PO QDAY heart 08/17/17 01/16/25 History ferrous sulfate 325 mg (65 mg 325 mg PO DAILY low iron 10/23/20 01/16/25 History iron) tablet (FeroSul) latanoprost 0.005 % eye drops 1 ml ophthalmic (eye) QHS retinal 10/23/20 01/16/25 History simvastatin 20 mg tablet 20 mg PO QHS low cholestrol 10/23/20 01/16/25 History vit C 250 mg-vit E 90 mg-zinc 40 1 tab PO BID eye health 08/18/21 01/16/25 History mg-copper 1 [id number] capsule (PreserVision AREDS-2) denosumab 60 mg/mL subcutaneous 60 mg subcut [id number] bnes #1 mL 10/20/22 01/16/25 Rx syringe (Prolia) cinacalcet 30 mg tablet 30 mg PO QDAY lower parathyroid 10/11/24 01/16/25 Rx #30 tabs amlodipine 5 mg tablet 5 mg PO DAILY #30 tabs 01/02/25 01/16/25 Rx hydralazine 25 mg tablet 25 mg PO TID #90 tabs 01/02/25 01/16/25 Rx Have you fallen in the past year?: No PFSH Medical History Wears hearing aid Wears contact lenses Post-menopausal Alcohol use Thyroid disease Low iron High cholesterol Restless legs Fainted Gastric reflux Shortness of breath on exertion Former smoker History of pain when walking History of edema History of echocardiogram Vitamin D deficiency Abnormal mammogram of right breast Heart murmur Arthritis HTN (hypertension) Surgical History History of incision and drainage History of carpal tunnel surgery of right wrist Hx of total hip arthroplasty H/O colonoscopy History of hip surgery Family History Grandmother Breast cancer Social History household members: spouse Smoking Status: Former smoker alcohol intake: current alcohol intake frequency: holidays/special occasions only HPI HPI HPI: Patient is 79-year-old female known to me for history of hyperparathyroidism due for parathyroidectomy earlier this month before she was acutely hospitalized after she displayed evidence of severe hypercalcemia, acute kidney injury, and hypertensive crisis. She presents today stating that she feels better. She confirms that she is urinating regularly and feels more hydrated. She relates that she experienced severe heartburn and vomited 3 times the weekend before she was due to present to endocrinology for scheduled blood work. It was there she was found to exhibit her severe hypercalcemia. She also recalls feeling an inability to concentrate or remember passwords during her episode. Repeat laboratories have been drawn (01/06/2025) this shows patient's creatinine returned to baseline at 1.13 and calcium returned to within normal limits at 10.0. ROS General General: No weight change, appetite, fatigue, colon cancer, breast cancer or weakness HEENT HEENT: No difficulty swallowing, eye injury, eye surgery, swollen glands or hoarseness Endo Endocrine: No thyroid disease, diabetes mellitus, thyroid cancer, Hair loss, heat intolerance or cold intolerance Skin Skin: No rash or changing moles Musc Musculoskeletal: Yes arthritis; No back problems, rheumatoid arthritis, gout or joint pain Cardio Cardiovascular: Yes high blood pressure; No murmur, pacemaker, heart disease, atrial fibrillation, heart attack, heart stent, palpitations, shortness of breath with exertion or chest pain Psych Psychiatric: No depression, anxiety or hearing voices Resp Respiratory: No shortness of breath, No sleep apnea, No cough, No COPD, No asthma, No emphysema and No wheezing Gastro Gastrointestinal: No abdominal pain, No nausea or vomiting, No diarrhea, No constipation, No blood in stool, No acid reflux, No hemorrhoids, No ulcers, No gallbladder problem and No black,tarry stools Soy Hematologic: No blood thinners, No blood disorders, No bleeding, No anemia and No blood clots Neuro Neurologic: Yes numbness, Yes tingling and No weakness Exam Const General: cooperative, comfortable and no acute distress Orientation: alert, awake and oriented x3 Neck Other: Normal?appearing with appropriate skin crease located over cricoid cartilage. Nontender. Assessment and Plan Assessment and Plan (1) Primary hyperparathyroidism: Status: Chronic Comment: Patient is 79-year-old female diagnosed with primary hyperparathyroidism who is initially reluctant to undergo surgery, however, her calcium and PTH have continued to rise. She was initially placed on Prolia for protection of her skeletal mass but recently required addition of Cinacalcet after emergency evaluation for serum calcium of 13.7. Patient acknowledged at least a 5-year history with this diagnosis, however, in my independent review of her records there are elevated calciums dating back to 2011. I shared with Mrs. Bunn that I agreed with the diagnosis of primary hyperparathyroidism and went on to describe the surgical indications that include evidence of bone demineralization with her densitometry showing osteopenia and her serum calcium greater than 1 mg/dL over the range of normal. Interestingly I do not believe we can attribute patient's femur fracture to this disease process as densitometry obtained 1 year prior to her accident showed her density to be normal. Patient denies a history of nephrolithiasis and has never undergone renal imaging, but in the absence of symptoms and the presence of these other surgical indications I believe it is prudent to proceed without. I went on to discuss etiologies for primary hyperparathyroidism and the use of localization studies for identifying candidate adenomas. I shared that if Mrs. Bunn's particular case her results were particularly favorable and that her ultrasound and subsequent parathyroid scan: Localized to the left inferior position. I went on to discuss my strong suspicion that patient's 2.2 cm hypoechoic structure posterior to the left inferior pole of the thyroid actually represents her parathyroid adenoma and I would not recommend biopsying this structure out of concern for seeding the neck with parathyroid cells. With colocalization I stated we could offer a minimally invasive parathyroidectomy with intraoperative nerve and PTH monitoring. Hand drawings were used at this point to describe the implementation of these steps to minimize the risk to the recurrent laryngeal nerve and confirm cure, respectively. Patient confirmed understanding of this information and denied further questions. She stated that she is ready to undergo surgery to have the area of concern removed. Update 01/16/2025: Patient presents today after acute hospital admission for acute kidney injury, hypercalcemia, and hypertensive crisis. The above issues now appear fully resolved and patient wishes to move forward with surgery. Given the clinical improvements I find this reasonable and then particularly pleased to see the improvements in her renal function as her PTH clearance will be dependent on this fact. I reiterated the rationale behind proceeding with parathyroidectomy was to improve her bone demineralization, however, I suggested there is optimism to suspect there should be improvements in her hypertension, heartburn, and her cognition postoperatively. A rescheduled date is being proposed for outpatient parathyroidectomy with PTH monitoring. Plan: Minimally invasive parathyroidectomy with intraoperative nerve and PTH monitoring. Outpatient disposition anticipated. I have examined the patient and the H&P has been reviewed. There are no clinical changes since date of exam. Highlights of the procedure were reviewed as well as post procedure activity instructions and a review of the early signs of hypocalcemia as well as what to do if encountered. Patient and her confirm understanding. They deny any further questions. Preop baseline PTH has been established at 190 peripherally. Will now proceed to the operating room for planned parathyroidectomy with intraoperative PTH and nerve monitoring.
--- NOTE | 2025-01-28 07:30 | PARA_PTH ---
PATIENT: YAJAIRA SOSA LOC: [facility] [place] U#:[id number] AGE/SX: 79/F ROOM: RE01/28/[address]: Dr. Je Burnett MD : 1945 BED: DIS: 01/28/2025 SPEC #: [id number] RECD: 01/28/25 09:16 STATUS: GAYLE PRICE #: [id number] TOREY: 01/28/25 07:[address]: Je Burnett DEPT: SURGICAL PATHOLOGY RECD BY: Nahun Lundbreg ENTERED: 01/28/25 10:48 SP TYPE: PARATHY OTHR DR: Se Bryan MD Tissues: A - Parathyroid Procedures: Frozen Section (charge) Surgery Specimen Level IV HEADER OPERATION: Parathyroidectomy with PTH monitoring and IONM PRE-OP DIAGNOSIS: Primary hyperparathyroidism TISSUE SUBMITTED: A- Left superior parathyroid gland FROZEN SECTION DIAGNOSIS A. Parathyroid gland, superior, left, parathyroidectomy: Parathyroid tissue. MS/mr 01/28/2025 MICROSCOPIC DIAGNOSIS A. Parathyroid gland, left superior, parathyroidectomy: - Parathyroid adenoma, 1.968 grams. MICROSCOPIC DESCRIPTION Slides are reviewed. GROSS DESCRIPTION A. Received fresh for frozen section diagnosis labeled the patient's name and date of . Designated as left parathyroid gland superior is a 1.968 g, 2.6 x 1.5 x 0.9 cm mcgovern-red parathyroid gland. The specimen is bisected (on the long axis). The specimen is entirely submitted for frozen section diagnosis and subsequently placed in cassette A1 for permanent sections. NV 01/28/2025 CPT:02883,46116
[2025-01-28] MEDS: Lidocaine 1% (5 ml sdv) 5 ML Vial 8 ML IV (07:53)
[2025-01-28] MEDS: fentaNYL 100 MCG/2 ML Ampul IV (08:01)
[2025-01-28 08:57] LABS: PTHIN 484 pg/mL (11-61)
[2025-01-28] MEDS: REMIFENTANIL HCL 1 MG VIAL 1.25 MG IV (09:28)
[2025-01-28 09:43] LABS: PTHIN 77 pg/mL (11-61)
[2025-01-28 10:01] LABS: PTHIN 66 pg/mL (11-61)
--- NOTE | 2025-01-28 10:38 | PCM.OPRPT ---
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 [employer] Airspace Officer: Migdalia Cronin Tasks completed by technical staff assistant: Opening & closing Type of Anesthesia: General/Supplemental RN Documented Start/Stop Times: Operation Date: 01/28/25 07:30 Case Time Into Pre-Op 01/28/25 06:10 Out of Pre-Op 01/28/25 07:29 Anesthesia Start 01/28/25 07:46 Into Room 01/28/25 07:46 Procedure Start 01/28/25 08:19 Procedure End 01/28/25 10:48 Anesthesia End 01/28/25 10:55 Out of Room 01/28/25 10:55 Into Recovery 01/28/25 10:56 Into Phase II Recovery 01/28/25 12:24 Out of Recovery 01/28/25 12:24 Out of Phase II 01/28/25 15:15 Procedure Start Time: 08:19 Procedure Stop Time: 10:48 Select all DRAINS/GRAFTS/IMPLANTS that apply: None Estimated Blood Loss: 20 Specimen collected: Yes Description of specimen(s) removed: Left superior parathyroid Description of surgery: After appropriate identification in the preoperative holding area the patient was brought to the operating room where she was positioned supine on the operating room table. There she was induced with general endotracheal anesthetic. Of note, a preoperative PTH had been obtained and was reported as 190. Patient was then intubated using a Nims tube and glide a scope to ensure coaptation between the vocal cords and the Nims tube electrodes. A resistance check confirmed appropriate function of the tube after the electrodes were properly connected to the monitoring box. Patient was then positioned in cervical extension, but adequately supporting the occiput. She was prepped and draped in the usual sterile fashion and a formal timeout followed to confirm patient and the procedure to be performed. A local block was produced with infiltration of local anesthetic and a 3.5cm transverse incision was made. This was deepened with the use of electrocautery through the platysma. Ultimately the strap muscles were exposed and were divided along their raphe with electrocautery. The strap muscles were from one another as I proceeded with dissection laterally towards the patient's left internal jugular vein. Once this structure was sufficiently exposed I obtained a baseline central vein PTH level. This ultimately returned at 484. I then used blunt dissection to free the sternothyroid muscle from the thyroid capsule of the left thyroid lobe deeply. I elevated the inferior pole of the left thyroid lobe but could only do so by dividing several vascular structures at the inferior pole with the use of our LigaSure device. It became immediately apparent that patient had a large parathyroid gland located just deep to this pole. Careful blunt dissection was employed to free the structure from its surrounding soft tissue attachments it was then circumferentially freed so that it remained suspended by its vascular pole only. This vascular pedicle ended up being oriented along the posterior aspect of the superior pole. At this point in the dissection a small titanium clip was placed across the pole and the gland was sharply amputated free. This specimen was passed off the field for frozen section confirmation. (Later, pathology telephoned the room to notify us that indeed this represented a large parathyroid gland weighing 1.968 mg). As we awaited this result, I irrigated the surgical cavity with sterile water examined for hemostasis. Finding this intact, I also developed the plane between the thyroid capsule and the strap muscles to try to identify the second parathyroid gland on this side. I visualized a involuted thymus and grossly believed parathyroid was present at the superior aspect of the structure. The tracheoesophageal groove was also developed bluntly but I was unable to quickly identify the left recurrent laryngeal nerve and only found prevertebral fascia. I decided that the large parathyroid gland had likely displaced the course of the nerve and any intentional dissection might risk injury. At the appointed time, left internal jugular ex vivo blood draws were made with a 22-gauge needle and syringe at 10 and 15 minutes were 77 and 66, respectively. Satisfied with the initial result of 77, I performed closure of the neck in layers. The strap muscles were run with a 3-0 Vicryl suture to reapproximate the raphe, but a gap was left in the inferior most portion of the strap muscles. The platysmal layer was reapproximated with interrupted 3-0 Vicryl. Additional local anesthetic was instilled. The skin was closed using a running 4-0 Monocryl in a subcuticular fashion. It was about the point that the skin was just closed that I received the second PTH at 66. Given that this represented a much greater than 50% drop was encouraged, however, this technically still resided outside of the normal range so I opted to perform a third ex vivo PTH draw. The neck, now closed, made a central stick of the internal jugular vein less desirable so I instead obtained a bedside ultrasound probe and visualized a right anterior jugular vein. With the patient in slight Trendelenburg I obtained this sample and then waited for the lab result. This ultimately returned as an encouraging 32. This encouraging result led to the formal termination of the procedure. Steri-Strips and Telfa OpSite was applied as a dressing. Patient was then awoken from general anesthetic and taken to PACU for ongoing recovery. Surgical Findings: ? Large parathyroid located in the prevertebral space beneath the thyroid, frozen section confirmed, weighing 1.968 g ? No visualized or detected left recurrent laryngeal nerve Complications Complications: No Admit VTE Documentation VTE Mechan Device Prophylaxis: SCD's
[2025-01-28 10:47] LABS: PTHIN 32 pg/mL (11-61)
--- NOTE | 2025-01-28 11:04 | PCM.POST.ANE ---
Anesthesia: Postop Eval I Current Vital Signs Temperature: 98.7 F Pulse Rate: 94 Blood Pressure: 179/87 Respiratory Rate: 16 Pulse Ox: 94 Oxygen Delivery Method: Room Air Assessment Airway patent: Yes Spontaneous unlabored respirations: Yes Mental status: Awake and Calm nausea: No Vomiting: No Anesthesia Complication: No Fluid Hydration Crystalloid volume administer (ml): 1,200 Total IV fluid infused: 1,200 Progress Note Anesthesia document: Postop Eval 1 completed: Yes
[2025-01-28 11:33] LABS: PTHIN 24 pg/mL (11-61)
--- NOTE | 2025-01-28 14:56 | DCINST_ITS ---
Discharge Instructions Diet Discharge Diet: No restrictions (However recommend a liquid to soft diet initially postoperatively) Activity Discharge Activity: May Not Drive (While it remains difficult to check blind spots quickly) May shower in (days): 2 Ice area for (Minutes): 20 Lifting Restrictions: No lifting greater than 15 pounds for 2 weeks after surgery Dressing / Incision Call your doctor if your incision/area has: Continuous Slow Oozing, Sudden Increased Bleeding, Increased Pain/ Swelling, Increased Redness and Swelling at the incision site Call your doctor if you observe: Numbness or Tingling Remove Dressing in: 2 days (Please leave Steri-Strips intact until they fall off spontaneously or are taken off at your follow-up visit) Cleanse incision/area with: Soap & Water Follow Up Care Please Follow Up With: Je Burnett MD When: 10-14 days postop Test Results: Test results from this visit will be discussed in further detail at your follow- up appointment, if applicable. Discharge Plan Admission Attending Provider: Je Burnett Primary Care Provider: Se Bryan Instructions Additional Instructions / Restrictions: Please take 1 tablet of Tums if experiencing numbness or tingling about the mouth or fingertips and notify Dr. Burnett's office Print Language: [place] Discharge Orders/Prescriptions Prescriptions: Continued aspirin 81 mg tablet,chewable 81 mg PO QDAY simvastatin 20 mg tablet 20 mg PO QHS Patient Comments: Take 1 tablet by mouth daily latanoprost 0.005 % drops 1 ml ophthalmic (eye) QHS Patient Comments: instill 1 (ONE) drop into both eyes EVERY NIGHT AT BEDTIME ferrous sulfate [FeroSul] 325 mg (65 mg iron) tablet 325 mg PO DAILY Prolia 60 mg/mL syringe 60 mg SC [id number] Qty: 1 1RF omeprazole magnesium 20 MG tablet,delayed release (DR/EC) 20 mg PO DAILY PreserVision AREDS-2 250-90-40-1 mg Capsule 1 tab PO BID amlodipine 5 mg Tablet 5 mg PO DAILY Qty: 30 0RF hydralazine 25 mg tablet 25 mg PO TID Qty: 90 0RF Discontinued cinacalcet 30 mg tablet 30 mg PO QDAY Qty: 30 3RF Referrals / Follow Up: Se Bryan MD [Primary Care Provider, Family Practice] Disposition Disposition (needs filled in before D/C Order can be placed): Home, Self Care
--- NOTE | 2025-01-28 20:55 | POSTOPAN2_ITS ---
Anesthesia Postop Eval I Sum Postop Eval Completion status Anesthesia document: Postop Eval 1 completed: Yes Anesthesia Postop Eval I Summary Anesthesia Postop Eval I Summary: Anesthesia Postop Eval I: Assessment Summary Airway patent Yes 01/28/25 11:05 INGOT HEADER.SKOBY Spontaneous unlabored Yes 01/28/25 11:05 INGOT HEADER.ROBERTOOBMini respirations Mental status Awake,Calm 01/28/25 11:05 INGOT HEADER.SKOBY nausea No 01/28/25 11:05 INGOT HEADER.SKOBY Vomiting No 01/28/25 11:05 INGOT HEADER.SKOBY Anesthesia Postop Eval I: Fluid Summary Crystalloid volume administer 1,200 01/28/25 11:05 INGOT HEADER.SKOBY (ml) Colloids volume administered ( ml) Blood Product volume administered (ml) Total IV fluid infused 1,200 01/28/25 11:05 INGOT HEADER.ROBERTOOBMini Anesthesia Postop Eval I: Summary Notes Anesthesia Complication No 01/28/25 11:05 INGOT HEADER.ROBERTOOBMini Anesthesia Complication Comment: Post-operative progress note Anesthesia: Postop Eval II Evaluation Mental status: Awake and Calm Pain Level: 1 nausea: No Vomiting: No Complications Anesthesia Complication: No
--- NOTE | 2025-01-28 20:55 | PCM.POSTANE2 ---
Anesthesia Postop Eval I Sum Postop Eval Completion status Anesthesia document: Postop Eval 1 completed: Yes Anesthesia Postop Eval I Summary Anesthesia Postop Eval I Summary: Anesthesia Postop Eval I: Assessment Summary Airway patent Yes 01/28/25 11:05 EXECUTIVE VP.SKOBY Spontaneous unlabored Yes 01/28/25 11:05 EXECUTIVE VP.ROBERTOOBMini respirations Mental status Awake,Calm 01/28/25 11:05 EXECUTIVE VP.SKOBY nausea No 01/28/25 11:05 EXECUTIVE VP.SKOBY Vomiting No 01/28/25 11:05 EXECUTIVE VP.SKOBY Anesthesia Postop Eval I: Fluid Summary Crystalloid volume administer 1,200 01/28/25 11:05 EXECUTIVE VP.SKOBY (ml) Colloids volume administered ( ml) Blood Product volume administered (ml) Total IV fluid infused 1,200 01/28/25 11:05 EXECUTIVE VP.ROBERTOOBMini Anesthesia Postop Eval I: Summary Notes Anesthesia Complication No 01/28/25 11:05 EXECUTIVE VP.ROBERTOOBMini Anesthesia Complication Comment: Post-operative progress note Anesthesia: Postop Eval II Evaluation Mental status: Awake and Calm Pain Level: 1 nausea: No Vomiting: No Complications Anesthesia Complication: No
== END 2025-01-28 15:15 | disposition home or self-care (01) ==
LOC: SDC 05:49 → AC 05:49
PROVIDERS: PCP Family Medicine; Referring Provider Surgery; Visit Provider Surgery
PROC: (CPT 60500; principal; 2025-01-28 07:15)
DX: D35.1 Benign neoplasm of parathyroid gland (principal); E21.0 Primary hyperparathyroidism; I10 Essential (primary) hypertension; E78.00 Pure hypercholesterolemia, unspecified; Z79.82 Long term (current) use of aspirin; Z79.899 Other long term (current) drug therapy; Z87.891 Personal history of nicotine dependence
CPT/HCPCS: 60500; 00320; 36415; 83970; 88305; 88331; J2405

== ENCOUNTER 2025-02-25 10:44 | Outpatient (CLI) | payer MEDICARE, SELFPAY ==
[2025-02-25 10:55] VITALS: BP 175/83; PULSE 95; RESP 16; TEMP 36.1; O2SAT 95
[2025-02-25] MEDS: DENOSUMAB 60 MG/ML SC (10:58)
== END 2025-02-25 23:59 | disposition home or self-care (01) ==
LOC: MEDOUTP 10:44
PROVIDERS: PCP Family Medicine; Referring Provider Internal Medicine Endocrinology, Diabetes & Metabolism; Visit Provider Internal Medicine Endocrinology, Diabetes & Metabolism
DX: M81.0 Age-related osteoporosis without current pathological fracture (principal)
CPT/HCPCS: 96372; J0897